=== PATIENT | male | born 1950 | race Caucasian/White ===

== ENCOUNTER → 2016-09-18 | Outpatient (CLI) | payer OTHER ==
[~2016-09-18] MED LIST: ACET-1138 PO; CYCL5TAB PO; FRRS300 PO; GABA1CAP PO; HYDR200T5 PO; HYDRCRE28 RE; HYG/25 PO; INSDGI SC; INSDGI SQ; LISI40TA PO; LVNIS30 SQ; METF-384 PO; ONDA8TAB6 PO; OXYSR10 PO; PRAM1TAB52 PO; RXC5 PO; TAMS0.4C38 PO
--- NOTE | 2016-09-18 14:55 | DIAGNOSTIC IMAGING REPORT ---
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 FINDINGS: The soft tissues, psoas shadows, renal outlines and intestinal gas pattern appear normal. There is no evidence for bowel obstruction. No abnormal abdominal calcifications are seen. IMPRESSION: Normal study. Electronically signed by: Kelvin Welch M.D. 09/18/2016 2:53 PM Dictated Date/Time: 09/18/2016 2:41 PM
== END | disposition home or self-care (01) ==
LOC: C.RAD 14:07
PROVIDERS: ATTEND Urology
DX: N20.0 Calculus of kidney (principal)

== ENCOUNTER 2017-08-02 15:49 | Emergency (ER) | payer OTHER ==
[~2017-08-02] VITALS: Ht 167.6 cm; Wt 90.3 kg
[~2017-08-02 15:49] MED LIST changes: -ACET-1138 PO; +ASPI81TA28 PO; +CHOL1000 PO; -CYCL5TAB PO; +ESCI10TA17 PO; -HYDR200T5 PO; -INSDGI SC; -INSDGI SQ; +INSDGIPEN SQ; -LVNIS30 SQ; -ONDA8TAB6 PO; -OXYSR10 PO; -RXC5 PO
[2017-08-02 16:04] VITALS: Ht 167.6 cm; Wt 90.3 kg
[2017-08-02] MEDS ORDERED: INSDGIPEN SC ×2 (16:44)
[2017-08-02] MEDS ORDERED: FINA5TAB PO (16:45)
[2017-08-02 17:15] LABS: BASO % 0.3 %; BASO ABS # 0.03 K/uL (0-0.2); EOS % 4.8 %; EOS ABS # 0.43 K/uL (0-0.5); HEMATOCRIT 38.7 % (42-52); HEMOGLOBIN 13.2 g/dL (14.0-18.0); IG# 0.06 K/uL (0.00-0.02); LYMPH % 13.9 %; LYMPH ABS # 1.23 K/uL (1.2-3.4); MEAN CELL VOLUME 88.2 fL (80-100); MEAN CORPUSCULAR HEMOGLOBIN 30.1 pg (25-34); MEAN CORPUSCULAR HGB CONC 34.1 g/dl (32-36); MEAN PLATELET VOLUME 9.8 fL (7.4-10.4); MONO % 8.2 %; MONO ABS # 0.73 K/uL (0.11-0.59); NEUT % 72.1 %; PLATELET COUNT 244 K/uL (130-400); RED CELL DISTRIBUTION WIDTH CV 13.7 % (11.5-14.5); RED CELL DISTRIBUTION WIDTH SD 43.9 fL (36.4-46.3); WHITE BLOOD COUNT 8.88 K/uL (4.8-10.8)
--- NOTE | 2017-08-02 17:18 | DIAGNOSTIC IMAGING REPORT ---
CHEST ONE VIEW PORTABLE CLINICAL HISTORY: EVALUATE ALTERED MENTAL STATUS/WEAKNESS mental status change COMPARISON STUDY: 06/12/2016 FINDINGS: Mild cardiomegaly. Lungs are clear. Diaphragms are smooth. IMPRESSION: No acute process. Mild cardiomegaly. The above report was generated using voice recognition software. It may contain grammatical, syntax or spelling errors. Electronically signed by: Kelvin Welch M.D. 08/02/2017 5:17 PM Dictated Date/Time: 08/02/2017 5:16 PM
[2017-08-02 17:28] LABS: INR 0.9 (0.9-1.1); PTT PATIENT 21.5 SECONDS (21.0-31.0)
[2017-08-02 17:38] LABS: ALBUMIN 3.4 gm/dl (3.4-5.0); ALT/SGPT 21 U/L (12-78); BLOOD UREA NITROGEN 23 mg/dl (7-18); CALCIUM 9.2 mg/dl (8.5-10.1); CARBON DIOXIDE 29 mmol/L (21-32); CREATININE 1.21 mg/dl (0.60-1.40); GLUCOSE 221 mg/dl (70-99); LIPASE 95 U/L (73-393); POTASSIUM 3.9 mmol/L (3.5-5.1); SODIUM 135 mmol/L (136-145)
[2017-08-02 17:39] LABS: INFLUENZA B ANTIGEN Neg for Influ B (NEG)
[2017-08-02 17:47] LABS: ALKALINE PHOSPHATASE 86 U/L (45-117); AST/SGOT 11 U/L (15-37); CKMB 1.2 ng/ml (0.5-3.6); TOTAL PROTEIN 7.6 gm/dl (6.4-8.2)
--- NOTE | 2017-08-02 20:27 | DIAGNOSTIC IMAGING REPORT ---
BRAIN COMBO FOR MS HISTORY: Mental status change weakness TECHNIQUE: Multiplanar multisequence MRI of the brain was performed both before and after the intravenous administration of contrast. COMPARISON STUDY: None. FINDINGS: There are no areas of restricted diffusion to suggest acute infarction. The midline structures are intact. The paranasal sinuses are clear. The mastoid air cells are clear. The ventricles and sulci are within normal limits for age. There is no mass, hematoma, midline shift. The major vascular flow-voids at the skull base are well maintained. Postcontrast sequences show no areas of abnormal enhancement. IMPRESSION: No acute intracranial abnormality. The above report was generated using voice recognition software. It may contain grammatical, syntax or spelling errors. Electronically signed by: Kelvin Welch M.D. 08/02/2017 8:26 PM Dictated Date/Time: 08/02/2017 8:23 PM
[2017-08-02] MEDS ORDERED: GADAVIST IV PRN (20:30)
[2017-08-02] MEDS ORDERED: OXYCODONE/ACETAMINOPHEN 5-325 TAB PO ONE (20:30)
--- NOTE | 2017-08-02 20:43 | EMERGENCY ROOM VISIT NOTE ---
History Report prepared by Maria Elena: Juan Contreras Under the Supervision of: Dr. Drew Nicole D.O. First contact with patient: 16:28 Chief Complaint: NEURO SYMPTOMS Stated Complaint: MS- PHYSICIAN REFERRED History of Present Illness The patient is a 66 year old male with a history of multiple sclerosis who presents to the Emergency Room with complaints of worsening weakness over the past few months. The patient states that his joint pain and soreness has been getting worse. He adds that he has had a "thumping" headache today. Per the patient's family, the patient has been declining, and can barely walk up steps or get in and out of the car. The patient has been unable to put his shoes on most of the time, and he has been noted to not be able to make his coffee because he cannot stand long enough. The patient has been having trouble moving in bed because he cannot get his "legs to work right". The patient states that Dr. Galloway of neurology recommended that the patient come here for evaluation. Per the patient's family, the patient has not been taking any medications for MS because he was told that he was in remission in the . The patient was tested for Lyme disease in March. Source of History: patient, family Onset: Over past few months Position: other (global - weakness) Symptom Intensity: can barely walk up stairs Quality: other (has MS) Timing: worsening Associated Symptoms: + headache Note: Associated symptoms: Joint aches and pains. Review of Systems See HPI for pertinent positives & negatives. A total of 10 systems reviewed and were otherwise negative. 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 (5) GERD (gastroesophageal reflux disease) (6) Hyperlipidemia (7) Hypertension (8) Infection of total right knee replacement (9) Kidney stone (10) Multiple sclerosis (11) Polyarthritis Surgical Problems: (1) H/O arthroscopic knee surgery (2) History of carpal tunnel surgery (3) History of total right knee replacement (4) S/P appendectomy (5) S/P rotator cuff repair Family History Diabetes mellitus FATHER MOTHER FH: breast cancer MOTHER Social History Smoking Status: Never Smoker Alcohol Use: none Marital Status: Housing Status: lives with family Current/Historical Medications Scheduled Aspirin (Aspirin Ec), 81 MG PO DAILY Chlorthalidone (Hygroton), 12.5 MG PO QAM Cholecalciferol (Vitamin D3), 1,000 UNITS PO DAILY Escitalopram (Lexapro), 10 MG PO DAILY Ferrous Sulfate (Ferrous Sulfate), 325 MG PO BID Finasteride (Proscar), 5 MG PO QAM Gabapentin (Neurontin), 200 MG PO HS Hydrocortisone (Rectal) (Proctozone-Hc), 1 APPLN RE PRN Insulin Glargine (Lantus Solostar), 25 UNITS SC QAM Insulin Glargine (Lantus Solostar), 30 UNITS SC QPM Lisinopril (Prinivil), 40 MG PO QAM Metformin Hcl (Glucophage), 500 MG PO BID Pramipexole Dihydrochloride (Mirapex), 2 TAB PO HS Tamsulosin Hcl (Flomax), 1 CAP PO DAILY Allergies Coded Allergies: No Known Allergies (Verified , 08/02/17) NONE Physical Exam Vital Signs Date Time Temp Pulse Resp B/P (MAP) Pulse Ox O2 Delivery O2 Flow Rate FiO2 08/02/17 20:22 83 16 177/67 95 08/02/17 19:12 77 18 173/98 94 Room Air 08/02/17 17:46 82 08/02/17 17:31 85 18 187/97 95 Room Air 08/02/17 16:04 36.8 90 18 196/102 96 Room Air Physical Exam VITAL SIGNS: were reviewed as above. GENERAL:Non-toxic in appearance. SKIN: Warm dry and pink. HEAD: Normocephalic and atraumatic. OROPHARYNX: Is clear and moist NECK: Supple without lymphadenopathy or meningismus. LUNGS: clear. HEART: Regular rate and rhythm. ABDOMEN: Soft and nontender. EXTREMITIES: Warm and well perfused. NEUROLOGICALLY: Awake alert and oriented without focal deficit. Cranial nerves 2 -12 are intact. There is no pronator drift. Cerebellar testing is within normal limits. There is no nystagmus. There is no facial droop. Speech is clear. Vision is grossly normal. MUSCULOSKELETAL: Good muscle tone. No evidence of trauma. Medical Decision & Procedures ER Provider Diagnostic Interpretation: Radiology results as stated below per my review and radiologist interpretation: CHEST ONE VIEW PORTABLE CLINICAL HISTORY: EVALUATE ALTERED MENTAL STATUS/WEAKNESS mental status change COMPARISON STUDY: 06/12/2016 FINDINGS: Mild cardiomegaly. Lungs are clear. Diaphragms are smooth. IMPRESSION: No acute process. Mild cardiomegaly. The above report was generated using voice recognition software. It may contain grammatical, syntax or spelling errors. Electronically signed by: Kelvin Welch M.D. 08/02/2017 5:17 PM Dictated Date/Time: 08/02/2017 5:16 PM BRAIN COMBO FOR MS HISTORY: Mental status change weakness TECHNIQUE: Multiplanar multisequence MRI of the brain was performed both before and after the intravenous administration of contrast. COMPARISON STUDY: None. FINDINGS: There are no areas of restricted diffusion to suggest acute infarction. The midline structures are intact. The paranasal sinuses are clear. The mastoid air cells are clear. The ventricles and sulci are within normal limits for age. There is no mass, hematoma, midline shift. The major vascular flow-voids at the skull base are well maintained. Postcontrast sequences show no areas of abnormal enhancement. IMPRESSION: No acute intracranial abnormality. The above report was generated using voice recognition software. It may contain grammatical, syntax or spelling errors. Electronically signed by: Kelvin Welch M.D. 08/02/2017 8:26 PM Dictated Date/Time: 08/02/2017 8:23 PM Laboratory Results 08/02/17 16:57 Red Blood Count 4.39, Mean Corpuscular Volume 88.2, Mean Corpuscular Hemoglobin 30.1, Mean Corpuscular Hemoglobin Concent 34.1, Mean Platelet Volume 9.8, Neutrophils (%) (Auto) 72.1, Lymphocytes (%) (Auto) 13.9, Monocytes (%) (Auto) 8.2, Eosinophils (%) (Auto) 4.8, Basophils (%) (Auto) 0.3, Neutrophils # (Auto) 6.40, Lymphocytes # (Auto) 1.23, Monocytes # (Auto) 0.73, Eosinophils # (Auto) 0.43, Basophils # (Auto) 0.03 08/02/17 16:57 Test 08/02/17 16:28 08/02/17 16:53 08/02/17 16:57 Influenza Type A Antigen Neg for Influ A (NEG) Influenza Type B Antigen Neg for Influ B (NEG) Urine Color YELLOW Urine Appearance CLEAR (CLEAR) Urine pH 7.0 (4.5-7.5) Urine Specific [place] 1.020 (1.000-1.030) Urine Protein 3+ (NEG) Urine Glucose (UA) 2+ (NEG) Urine Ketones NEG (NEG) Urine Occult Blood TRACE (NEG) Urine Nitrite NEG (NEG) Urine Bilirubin NEG (NEG) Urine Urobilinogen NEG (NEG) Urine Leukocyte Esterase NEG (NEG) Urine WBC (Auto) 1-5 /hpf (0-5) Urine RBC (Auto) 0-4 /hpf (0-4) Urine Hyaline Casts (Auto) 0 /lpf (0-5) Urine Epithelial Cells (Auto) 5-10 /lpf (0-5) Urine Bacteria (Auto) NEG (NEG) White Blood Count 8.88 K/uL (4.8-10.8) Red Blood Count 4.39 M/uL (4.7-6.1) Hemoglobin 13.2 g/dL (14.0-18.0) Hematocrit 38.7 % (42-52) Mean Corpuscular Volume 88.2 fL (80-100) Mean Corpuscular Hemoglobin 30.1 pg (25-34) Mean Corpuscular Hemoglobin Concent 34.1 g/dl (32-36) Platelet Count 244 K/uL (130-400) Mean Platelet Volume 9.8 fL (7.4-10.4) Neutrophils (%) (Auto) 72.1 % Lymphocytes (%) (Auto) 13.9 % Monocytes (%) (Auto) 8.2 % Eosinophils (%) (Auto) 4.8 % Basophils (%) (Auto) 0.3 % Neutrophils # (Auto) 6.40 K/uL (1.4-6.5) Lymphocytes # (Auto) 1.23 K/uL (1.2-3.4) Monocytes # (Auto) 0.73 K/uL (0.11-0.59) Eosinophils # (Auto) 0.43 K/uL (0-0.5) Basophils # (Auto) 0.03 K/uL (0-0.2) RDW Standard Deviation 43.9 fL (36.4-46.3) RDW Coefficient of Variation 13.7 % (11.5-14.5) Immature Granulocyte % (Auto) 0.7 % Immature Granulocyte # (Auto) 0.06 K/uL (0.00-0.02) Prothrombin Time 9.5 SECONDS (9.0-12.0) Prothromb Time International Ratio 0.9 (0.9-1.1) Activated Partial Thromboplast Time 21.5 SECONDS (21.0-31.0) Partial Thromboplastin Ratio 0.8 Anion Gap 8.0 mmol/L (3-11) Est Creatinine Clear Calc Drug Dose 62.3 ml/min Estimated GFR () 71.4 Estimated GFR (Non- 61.6 BUN/Creatinine Ratio 18.6 (10-20) Calcium Level 9.2 mg/dl (8.5-10.1) Magnesium Level 1.6 mg/dl (1.8-2.4) Total Bilirubin 0.3 mg/dl (0.2-1) Direct Bilirubin < 0.1 mg/dl (0-0.2) Aspartate Amino Transf (AST/SGOT) 11 U/L (15-37) Alanine Aminotransferase (ALT/SGPT) 21 U/L (12-78) Alkaline Phosphatase 86 U/L (45-117) Total Creatine Kinase 55 U/L (39-308) Creatine Kinase MB 1.2 ng/ml (0.5-3.6) Creatine Kinase MB Ratio 2.2 (0-3.0) Troponin I < 0.015 ng/ml (0-0.045) Total Protein 7.6 gm/dl (6.4-8.2) Albumin 3.4 gm/dl (3.4-5.0) Lipase 95 U/L (73-393) Thyroid Stimulating Hormone (TSH) 0.307 uIu/ml (0.300-4.500) Lyme Disease IgG Antibody NEG (NEG) Lyme Disease IgM Antibody NEG (NEG) Laboratory results as stated above per my review. Medications Administered Medications (Trade) Dose Ordered Sig/Juliet Route Start Time Stop Time Status Last Admin Dose Admin Oxycodone/ Acetaminophen (Percocet 5-325mg Tab) 1 tab NOW ONCE PO 08/02/17 20:30 08/02/17 20:31 DC 08/02/17 20:32 1 TAB ECG Indication: weakness Rate (beats per minute): 86 Rhythm: normal sinus Findings: no ectopy, other (no acute injury) ED Course 162: Previous medical records were reviewed. The patient was evaluated in room B6. A complete history and physical examination was performed. 2029: Ordered Percocet 5-325mg Tab 1 tab PO. 2031: On reevaluation, the patient is resting. I discussed the results and findings with the patient and his family. They verbalized agreement of the treatment plan. The patient was discharged home. Medical Decision Differential includes acute coronary syndrome, myocardial infarction, CVA, TIA, anemia, infection, pneumonia, UTI, pyelonephritis, poor nutrition, dehydration, electrolyte disturbance,hypoglycemia. This is a 66-year-old male who presents to the ED with a chief complaint of some joint aches as well as weakness. The patient has been having some difficulty with moving and standing and putting on his shoes. The patient was sent here by the neurologist for an MRI of the brain to rule out MS. The patient reports a history of MS in the past. His vital signs revealed a hypertension. He was referred to have this rechecked by his PCP. The patient' s exam did not reveal any focal deficits. He has some mild generalized weakness. An EKG shows a normal sinus rhythm. Chest x-ray did not show acute disease. Complete metabolic panel was unremarkable. Glucose was 221. Troponin was negative, TSH was normal. Lyme test was negative, flu swab was negative and a urinalysis did not show acute infection. MRI of the brain did not show any abnormalities. The patient was given a Percocet for a headache. I spoke with the family and the patient about the results. He feels comfortable going home. He was felt to be stable for discharge. I told him to speak with his PCP about physical therapy. Medication Reconcilliation Current Medication List: was personally reviewed by me Blood Pressure Screening Patient's blood pressure: Elevated blood pressure Blood pressure disposition: Elevated BP felt to be situational Impression Primary Impression: Weakness Scribe Attestation The scribe's documentation has been prepared under my direction and personally reviewed by me in its entirety. I confirm that the note above accurately reflects all work, treatment, procedures, and medical decision making performed by me. Departure Information Dispostion Home / Self-Care Referrals Destini Rendon D.O. (PCP) Patient Instructions My [facility] Additional Instructions Talk to your doctor about physical therapy. Follow-up with your doctor for recheck next week. Return for any worsening or new concerns.
[2017-08-02 20:55] VITALS: BP 177/67; PULSE 83; TEMP 36.8; O2SAT 95
== END 2017-08-02 20:56 | disposition home or self-care (01) ==
LOC: C.EDB 15:50
DX: R53.1 Weakness (principal); G35 Multiple sclerosis; J45.909 Unspecified asthma, uncomplicated; N18.3 Chronic kidney disease, stage 3 (moderate); I12.9 Hypertensive chronic kidney disease with stage 1 through stage 4 chronic kidney disease, or unspecified chronic kidney disease; E11.22 Type 2 diabetes mellitus with diabetic chronic kidney disease; K21.9 Gastro-esophageal reflux disease without esophagitis; E78.5 Hyperlipidemia, unspecified; Z87.442 Personal history of urinary calculi; M13.0 Polyarthritis, unspecified; Z96.651 Presence of right artificial knee joint; Z83.3 Family history of diabetes mellitus; Z80.3 Family history of malignant neoplasm of breast; Z79.82 Long term (current) use of aspirin; Z79.4 Long term (current) use of insulin; Z79.84 Long term (current) use of oral hypoglycemic drugs; Z79.899 Other long term (current) drug therapy

== ENCOUNTER 2018-12-02 14:05 | Inpatient (IN) ==
[2018-12-02 14:44] LABS: Basophils # (auto) 0.03 K/uL (0-0.2); Basophils % (auto) 0.3 %; Eosinophils # (auto) 0.56 K/uL (0-0.5); Eosinophils % (auto) 6.2 %; Hematocrit (blood only) 37.9 % (42-52); Hemoglobin 13.4 g/dL (14.0-18.0); Immature Granulocytes # (auto) 0.04 K/uL (0.00-0.02); Immature Granulocytes % (auto) 0.4 %; Lymphocytes # (auto) 1.84 K/uL (1.2-3.4); Lymphocytes % (auto) 20.4 %; Mean Corpuscular Hgb Conc 35.4 g/dL (32-36); Mean Corpuscular Volume 88.1 fL (80-100); Mean Platelet Volume 9.7 fL (7.4-10.4); Monocytes # (auto) 0.62 K/uL (0.11-0.59); Monocytes % (auto) 6.9 %; Neutrophils # (auto) 5.91 K/uL (1.4-6.5); Neutrophils % (auto) 65.8 %; Platelet Count 226 K/uL (130-400); RDW Standard Deviation 44.6 fL (36.4-46.3)
[2018-12-02 15:04] LABS: Prothrombin Time 63.3 Seconds (9.0-12.0)
[2018-12-02 15:07] LABS: Albumin Level 3.6 gm/dl (3.4-5.0); BUN Creatinine Ratio 13.7 (10-20); Creatinine Clr Calc Pharmacy 45.3 ml/min; Est GFR (African American) 52.2; Potassium 4.4 mmol/L (3.5-5.1)
[2018-12-02 15:09] LABS: Albumin Globulin Ratio 0.9 (0.9-2); Bilirubin,Total 0.3 mg/dl (0.2-1); Globulin 3.9 gm/dl (2.5-4.0); Total Protein 7.5 gm/dl (6.4-8.2)
[2018-12-02 15:20] LABS: INR 7.1 (0.9-1.1)
[2018-12-02 15:20] LABS: Appearance Urine Turbid (Clear); Color Urine Red
[2018-12-02 15:21] LABS: Ictotest Urine Negative (Negative); Specific Gravity Urine 1.015 (1.000-1.030)
[2018-12-02 15:22] LABS: Epithelial Cell Urine 0-5 /lpf (0-5); RBC Urine >30 /hpf (0-4)
[2018-12-02 15:23] LABS: Bacteria Urine Negative (Negative); Hyaline Casts Urine 0-5 /lpf (0-5); WBC Urine 0-5 /hpf (0-5)
--- NOTE | 2018-12-02 16:11 | CT Scan Report ---
CT SCAN OF THE ABDOMEN AND PELVIS WITHOUT CONTRAST CLINICAL HISTORY: hematuria, pelvic pain, urinary retention, coulter COMPARISON STUDY: 10/28/2009 TECHNIQUE: CT scan of the abdomen and pelvis was performed from the lung bases to the proximal femurs . Images are reviewed in the axial, sagittal, and coronal planes. IV contrast was not administered fo r this examination. A dose lowering technique was utilized adhering to the principles of ALARA. CT DOSE: 490.62 mGy.cm FINDINGS: Lower chest: The heart is normal in size and configuration, without pericardial effusion. The lung ba ses and pleural spaces are clear. Liver: The unenhanced liver is normal in size, contour, and attenuation. There is no intrahepatic cristy iary ductal dilatation. Gallbladder: Unremarkable. Spleen: Normal in size and attenuation. Pancreas: Unremarkable. Adrenal glands: Unremarkable. Kidneys: No renal, ureteral, or bladder calculi are visualized. Bowel: There are no transition zones indicate bowel obstruction. There is no acute diverticulitis. Th e appendix is not visualized with certainty. There are no findings to indicate acute appendicitis. Peritoneum: There is no intraperitoneal free air or abdominal ascites. Vasculature: The abdominal aorta is normal in course and caliber. Adenopathy: None. Pelvic viscera: A Coulter catheter is visualized within the bladder. Bladder contents are hyperdense. T here is a 15 mm filling defect within the bladder lateral to the Coulter catheter to the right of midli ne. Skeletal structures: No destructive osseous lesions are seen. IMPRESSION: 1. No renal, ureteral, or bladder calculi identified 2. No evidence of bowel obstruction. No evidence of free air 3. Coulter catheter within the bladder 4. Increased density of the urine within the bladder. This could be indicate either contrast or hemor rhage 5. 15 mm filling defect within the bladder lateral to the Coulter catheter to the right of midline. Electronically signed by: Hosea Mims M.D. 12/02/2018 4:10 PM
[2018-12-02] MEDS ORDERED: PHYTONADIONE 5 MG TAB PO STA (16:53)
[2018-12-02] MEDS ORDERED: NITROGLYCERIN SL 0.4 MG/TAB TAB SL PRN (19:03)
[2018-12-02] MEDS ORDERED: ONDANSETRON INJ 2 MG/ML 2 ML VIAL IV PRN (19:03)
[2018-12-02] MEDS ORDERED: ACETAMINOPHEN 325 MG TAB PO PRN (19:03)
[2018-12-02] MEDS ORDERED: GLUCAGON FOR INJ 1 MG VIAL IM PRN (19:15)
[2018-12-02] MEDS ORDERED: CARBOHYDRATES FOR HYPOGLYCEMIA PO PRN (19:15)
[2018-12-02] MEDS ORDERED: GLUCOSE 40% GEL 15 GM TUBE PO PRN (19:15)
[2018-12-02] MEDS ORDERED: DEXTROSE 50% 50 ML SYRINGE IV PRN (19:15)
[2018-12-02] MEDS ORDERED: GLUCOSE 10 TABS/TUBE PO PRN (19:15)
[2018-12-02 19:30] LABS: Hematocrit (blood only) 35.9 % (42-52); Hemoglobin 12.8 g/dL (14.0-18.0)
[2018-12-02] MEDS ORDERED: PHYTONADIONE 2.5 MG in SODIUM CHLORIDE 0.9% 50 ML IV ONE (19:30)
[2018-12-02] MEDS: SODIUM CHLORIDE 0.9% 1000ML 1,000 ML IV SCH (19:40)
[2018-12-02] MEDS: FERROUS SULFATE 325 MG TAB PO SCH (20:15)
[2018-12-02] MEDS: GABAPENTIN 100 MG CAP PO SCH (20:15)
[2018-12-02] MEDS: PRAMIPEXOLE DIHYDROCHLO 0.25 MG TAB PO SCH (20:15)
[2018-12-02] MEDS: LISINOPRIL 40 MG TAB PO SCH (20:16)
[2018-12-02] MEDS: AMLODIPINE BESYLATE 5 MG TAB PO SCH (20:16)
--- NOTE | 2018-12-02 20:40 | Emergency Department Note ---
Entered by Juan Ortega acting as a scribe for Nacho Allen MD ED Provider Note CHIEF COMPLAINT: urinary retention HISTORY OF PRESENT ILLNESS: The patient is a 68 year old male who presents to the Emergency Room with compla ints of inability to void urine. The patient reports that he had prostate surgery four weeks ago, and in the past few days he developed hematuria with occasional passing of large clots. He reports persistent abdominal bloating and discomfort over the past few days, as well as pelvic discomfort and pain for the past few weeks. He states that he is now unable to urinate. He reports that he is on Coumadin, and his INR last week was therapeutic. He denies other symptoms. He took no medication for his symptoms. Pt denies LOC, headache, fevers, chills, diaphoresis, visual changes, neck pain, chest pain, breathing difficulties, nausea, vomiting, melena, hematochezia, numbness, weakness, lymphadenopathy, rash, or other complaints. REVIEW OF SYSTEMS: See HPI for pertinent positives and negatives. A total of six systems were reviewed and were otherwise negative. PMHx/PSHx: diabetes CKD GERD hypertension hyperlipidemia DVT SOCIAL HISTORY: Patient lives at home. PHYSICAL EXAM: GENERAL: Awake, alert, uncomfortable-appearing, in no distress HENT: Normocephalic, atraumatic. Oropharynx unremarkable. EYES: PERRL. Normal conjunctiva. Sclera non-icteric. NECK: Inspection normal. Non-tender. Supple. No nuchal rigidity. FROM. No masses. RESPIRATORY: Clear to auscultation. No wheezes. No rales. Normal respiratory effort. CARDIAC: Normal rate. Normal rhythm. No murmurs. No rubs. Extremities warm and well perfused. Pulses equal. No JVD. GI: Soft, non-distended. Suprapubic tenderness to palpation. No rebound or guarding. No masses. : Scant blood at the meatus. RECTAL: Deferred. MUSCULOSKELETAL: Atraumatic. Chest examination reveals no tenderness. The back is symmetrical on inspection without obvious abnormality. There is no CVA tenderness to palpation. No joint edema. LOWER EXTREMITIES: Calves are equal size bilaterally and non-tender. No edema. No discoloration. NEURO: Normal sensorium. No sensory or motor deficits noted. SKIN: No rash or jaundice noted. EMERGENCY DEPARTMENT COURSE: 1428: Past medical records reviewed. The patient was evaluated in room C9, and a complete history and physical examination were performed. 1512: Bladder scan showed 885 cc of urine. 1514: The patient voided 1100 cc of bloody urine. 1631: The patient is feeling improved, but there was difficulty flushing the catheter after initial drainage, and there is a significant clot in the bladder. 1647: I consulted Dr. Tamez [facility]. 1653: I updated the patient on current results. 1655: [facility]. The patient will be reevaluated for hospitalization. MEDICAL DECISION MAKING: Triage Nursing notes reviewed. The patient's presentation and history were concerning for urinary retention. Etiologies such as obstruction, dehydration, infection, urinary retention, ARF, coagulopathy, as well as others were entertained. The patient was evaluated. Bladder scan revealed significant urinary retention. A catheter was placed. He had significant relief of his symptoms but had significant amount of urine obtained. The patient had irrigation performed. The catheter then became clogged. CT imaging revealed a significant clot within the bladder. The patient had an INR that was supratherapeutic. He was given oral vitamin K. I did consult with urology. It was felt that the patient should be observed in the hospital due to his high likelihood of clotting the catheter and obstructing with his coagulopathy. Consultation was made with the [facility] service. The patient was in agreement. The patient was evaluated in the ER for further management. IMPRESSION: acute urinary retention hematuria supratherapeutic INR PLAN: evaluation by hospitalist The scribe's documentation has been prepared under my direction and personally reviewed by me in its entirety. I confirm that the note above accurately reflects all work, treatment, procedures, and medical decision making performed by me. 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 Cataract Chronic kidney disease Stage III. follows w/ dr. 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 Galloway, has not had symptoms beyond muscle twitches since the early Osteoarthritis Thyroid nodule Surgical History S/P appendectomy (Chronic) History of carpal tunnel surgery (Chronic) S/P rotator cuff repair (Chronic) H/O arthroscopic knee surgery (Chronic) History of total right knee replacement (Chronic) History of appendectomy History of arthroscopy of left knee History of cardiac cath 15 years ago - CP led to cath - Tj - no stents/angioplasty, ruled indigestion - does not follow w/ cardio History of carpal tunnel release BL History of cystoscopy History of knee joint replacement x 2 rt knee History of repair of rotator cuff BL History of surgery LLE - hardware present History of tooth extraction Status post biopsy of thyroid gland benign Family History Daughter History of anesthesia reaction PONV Grandfather (Paternal) Family history of diabetes mellitus Mother Family history of diabetes mellitus Father Family history of diabetes mellitus Social History Preferred Language: Gambian Communication Ability: Effective Community Outreach Advocate Required: No Beliefs That Will Affect Care: None marital status: Current Living Situation: Spouse current occupational status: retired Other Information That Helps Us Care for You: No Feels Safe at Home: Yes Safety Concerns: Feels Safe At This Time Smoking Status: Never smoker Tobacco Type: smokeless tobacco Do You Dip or Chew Tobacco: Yes Second Hand Exposure: Yes ( SMOKES) Tobacco Cessation Education Requested by Patient: No Hx Alcohol Use: Yes Alcohol type: beer and wine Hx Substance Use: No Results & Data Vital Signs Vital Signs - 24 hr 12/02/18 14:19 12/02/18 15:14 12/02/18 16:48 Temperature 36.9 C Temperature Source Oral Sepsis Recent Fever Within 48 Hours No Sepsis New/Unexplained Change in Mental Status No Sepsis Action Taken by Nursing No Action Required Pulse Rate 81 Pulse Rate [Apical] 75 75 Pulse Rhythm [Apical] Pulse Strength [Apical] Respiratory Rate 18 18 18 Respiratory Effort / Characteristics Non-Labored Respiratory Depth Normal Respiratory Pattern Blood Pressure 141/83 H Blood Pressure [Left Arm] 153/80 H 147/91 H Blood Pressure Mean 102 Blood Pressure Mean [Left Arm] 104 109 Blood Pressure Position Sitting Blood Pressure Position [Left Arm] Pulse Oximetry 98 98 95 Oxygen Delivery Method Room Air Room Air Room Air 12/02/18 18:18 12/02/18 19:04 Temperature 36.7 C Temperature Source Oral Sepsis Recent Fever Within 48 Hours Sepsis New/Unexplained Change in Mental Status Sepsis Action Taken by Nursing Pulse Rate Pulse Rate [Apical] 75 70 Pulse Rhythm [Apical] Regular Pulse Strength [Apical] Normal Respiratory Rate 18 16 Respiratory Effort / Characteristics Non-Labored Spontaneous Respiratory Depth Normal Respiratory Pattern Regular Blood Pressure Blood Pressure [Left Arm] 129/78 156/87 H Blood Pressure Mean Blood Pressure Mean [Left Arm] 95 110 Blood Pressure Position Blood Pressure Position [Left Arm] Lying Pulse Oximetry 97 97 Oxygen Delivery Method Room Air Room Air Home Medications Current Medication List: was personally reviewed by me Laboratory Data Attestation: I reviewed the patient's lab results. Result diagrams: 12/02/18 19:24 12/02/18 14:37 Lab Results 12/02/18 12/02/18 12/02/18 Range/Units 14:37 14:37 14:37 WBC 9.00 (4.8-10.8) K/uL RBC 4.30 L (4.7-6.1) M/uL Hgb 13.4 L (14.0-18.0) g/dL Hct 37.9 L (42-52) % MCV 88.1 (80-100) fL MCH 31.2 (25-34) pg MCHC 35.4 (32-36) g/dL RDW Std Deviation 44.6 (36.4-46.3) fL RDW Coeff of Leo 14.0 (11.5-14.5) % Plt Count 226 (130-400) K/uL MPV 9.7 (7.4-10.4) fL Immature Gran % (Auto) 0.4 % Neut % (Auto) 65.8 % Lymph % (Auto) 20.4 % [place] % (Auto) 6.9 % Eos % (Auto) 6.2 % Baso % (Auto) 0.3 % Immature Gran # (Auto) 0.04 H (0.00-0.02) K/uL Neut # (Auto) 5.91 (1.4-6.5) K/uL Lymph # (Auto) 1.84 (1.2-3.4) K/uL [place] # (Auto) 0.62 H (0.11-0.59) K/uL Eos # (Auto) 0.56 H (0-0.5) K/uL Baso # (Auto) 0.03 (0-0.2) K/uL PT 63.3 H (9.0-12.0) Seconds INR 7.1 H* (0.9-1.1) Sodium 140 (136-145) mmol/L Potassium 4.4 (3.5-5.1) mmol/L Chloride 107 (98-107) mmol/L Carbon Dioxide 24 (21-32) mmol/L Anion Gap 9.0 (3-11) BUN 21 H (7-18) mg/dl Creatinine 1.55 H (0.6-1.4) mg/dl Est Cr Clr Drug Dosing 45.3 ml/min Est GFR ( Amer) 52.2 Est GFR (Non-Af Amer) 45.0 BUN/Creatinine Ratio 13.7 (10-20) Glucose 223 H (70-99) mg/dl POC Glucose (70-99) Calcium 9.0 (8.5-10.1) mg/dl Total Bilirubin 0.3 (0.2-1) mg/dl AST 15 (15-37) U/L ALT 29 (12-78) U/L Alkaline Phosphatase 54 (45-117) U/L Total Protein 7.5 (6.4-8.2) gm/dl Albumin 3.6 (3.4-5.0) gm/dl Globulin 3.9 (2.5-4.0) gm/dl Albumin/Globulin Ratio 0.9 (0.9-2) Urine Color Urine Appearance (Clear) Urine pH (4.5-7.5) Ur Specific [place] (1.000-1.030) Urine Protein (Negative) Urine Glucose (UA) (Negative) Urine Ketones (Negative) Urine Blood (Negative) Urine Nitrite (Negative) Urine Bilirubin (Negative) Urine Urobilinogen (Negative) Ur Leukocyte Esterase (Negative) Urine RBC (0-4) /hpf Urine WBC (0-5) /hpf Ur Epithelial Cells (0-5) /lpf Urine Bacteria (Negative) Hyaline Casts (0-5) /lpf 12/02/18 12/02/18 12/02/18 Range/Units 14:48 19:24 20:18 WBC (4.8-10.8) K/uL RBC (4.7-6.1) M/uL Hgb 12.8 L (14.0-18.0) g/dL Hct 35.9 L (42-52) % MCV (80-100) fL MCH (25-34) pg MCHC (32-36) g/dL RDW Std Deviation (36.4-46.3) fL RDW Coeff of Leo (11.5-14.5) % Plt Count (130-400) K/uL MPV (7.4-10.4) fL Immature Gran % (Auto) % Neut % (Auto) % Lymph % (Auto) % [place] % (Auto) % Eos % (Auto) % Baso % (Auto) % Immature Gran # (Auto) (0.00-0.02) K/uL Neut # (Auto) (1.4-6.5) K/uL Lymph # (Auto) (1.2-3.4) K/uL [place] # (Auto) (0.11-0.59) K/uL Eos # (Auto) (0-0.5) K/uL Baso # (Auto) (0-0.2) K/uL PT (9.0-12.0) Seconds INR (0.9-1.1) Sodium (136-145) mmol/L Potassium (3.5-5.1) mmol/L Chloride (98-107) mmol/L Carbon Dioxide (21-32) mmol/L Anion Gap (3-11) BUN (7-18) mg/dl Creatinine (0.6-1.4) mg/dl Est Cr Clr Drug Dosing ml/min Est GFR ( Amer) Est GFR (Non-Af Amer) BUN/Creatinine Ratio (10-20) Glucose (70-99) mg/dl POC Glucose 97 (70-99) Calcium (8.5-10.1) mg/dl Total Bilirubin (0.2-1) mg/dl AST (15-37) U/L ALT (12-78) U/L Alkaline Phosphatase (45-117) U/L Total Protein (6.4-8.2) gm/dl Albumin (3.4-5.0) gm/dl Globulin (2.5-4.0) gm/dl Albumin/Globulin Ratio (0.9-2) Urine Color Red Urine Appearance Turbid A (Clear) Urine pH (4.5-7.5) Ur Specific [place] 1.015 (1.000-1.030) Urine Protein (Negative) Urine Glucose (UA) (Negative) Urine Ketones (Negative) Urine Blood (Negative) Urine Nitrite (Negative) Urine Bilirubin (Negative) Urine Urobilinogen (Negative) Ur Leukocyte Esterase (Negative) Urine RBC >30 H (0-4) /hpf Urine WBC 0-5 (0-5) /hpf Ur Epithelial Cells 0-5 (0-5) /lpf Urine Bacteria Negative (Negative) Hyaline Casts 0-5 (0-5) /lpf Administered Medications Amlodipine Besylate (Norvasc) 5 mg PO QPM [facility] Stop: 01/01/19 20:59 Last Admin: 12/02/18 20:16 Dose: 5 mg Documented by: [id number] Ferrous Sulfate (Feosol) 325 mg PO BID [facility] Stop: 01/01/19 20:59 Last Admin: 12/02/18 20:15 Dose: 325 mg Documented by: [id number] Gabapentin (Neurontin) 200 mg PO QPM [facility] Stop: 01/01/19 20:59 Last Admin: 12/02/18 20:15 Dose: 200 mg Documented by: [id number] Sodium Chloride (Nss 1000ml) 1,000 mls @ 80 mls/hr IV .[id number] [facility] Stop: 01/01/19 19:02 Last Admin: 12/02/18 19:40 Dose: 80 mls/hr Documented by: [id number] Lisinopril (Zestril) 40 mg PO BID [facility] Stop: 01/01/19 20:59 Last Admin: 12/02/18 20:16 Dose: 40 mg Documented by: [id number] Pramipexole Dihydrochloride (Mirapex) 0.75 mg PO QPM [facility] Stop: 01/01/19 20:59 Last Admin: 12/02/18 20:15 Dose: 0.75 mg Documented by: [id number] Discontinued Medications Phytonadione 2.5 mg/ Sodium (Chloride) 50.25 mls @ 100.5 mls/hr IV NOW ONE Stop: 12/02/18 19:59 Last Admin: 12/02/18 19:56 Dose: 100.5 mls/hr Documented by: [id number] Phytonadione (Mephyton) 2.5 mg PO NOW STA Stop: 12/02/18 16:54 Last Admin: 12/02/18 17:41 Dose: 2.5 mg Documented by: [id number] Imaging Data Radiologist's Impression: Radiology results as stated below per my review and the radiologist's interpretation: CT SCAN OF THE ABDOMEN AND PELVIS WITHOUT CONTRAST CLINICAL HISTORY: hematuria, pelvic pain, urinary retention, coulter COMPARISON STUDY: 10/28/2009 TECHNIQUE: CT scan of the abdomen and pelvis was performed from the lung bases to the proximal femurs. Images are reviewed in the axial, sagittal, and coronal planes. IV contrast was not administered for this examination. A dose lowering technique was utilized adhering to the principles of ALARA. CT DOSE: 490.62 mGy.cm FINDINGS: Lower chest: The heart is normal in size and configuration, without pericardial effusion. The lung bases and pleural spaces are clear. Liver: The unenhanced liver is normal in size, contour, and attenuation. There is no intrahepatic biliary ductal dilatation. Gallbladder: Unremarkable. Spleen: Normal in size and attenuation. Pancreas: Unremarkable. Adrenal glands: Unremarkable. Kidneys: No renal, ureteral, or bladder calculi are visualized. Bowel: There are no transition zones indicate bowel obstruction. There is no acute diverticulitis. The appendix is not visualized with certainty. There are no findings to indicate acute appendicitis. Peritoneum: There is no intraperitoneal free air or abdominal ascites. Vasculature: The abdominal aorta is normal in course and caliber. Adenopathy: None. Pelvic viscera: A Coulter catheter is visualized within the bladder. Bladder co ntents are hyperdense. There is a 15 mm filling defect within the bladder lateral to the Coulter catheter to the right of midline. Skeletal structures: No destructive osseous lesions are seen. IMPRESSION: 1. No renal, ureteral, or bladder calculi identified 2. No evidence of bowel obstruction. No evidence of free air 3. Coulter catheter within the bladder 4. Increased density of the urine within the bladder. This could be indicate either contrast or hemorrhage 5. 15 mm filling defect within the bladder lateral to the Coulter catheter to the right of midline. Electronically signed by: Hosea Mims M.D. 12/02/2018 4:10 PM Blood Pressure Blood Pressure Findings: Elevated blood pressure Blood Pressure Disposition: further management by hospitalist Discharge Plan Visit Data *Final* Discharge Date/Time: 12/02/18 18:29 Chief Complaint: Bleeding Stated Complaint: BLEEDING,CANT PEE, PROSTATE SURG 3/4 WEEKS AGO ED Provider: Nacho Allen Discharge Problem: Acute urinary retention, Hematuria, Supratherapeutic INR Patient Disposition: Admitted As Inpatient Discharge Instructions Interventions: ED Discharge Assessment Last Done: 12/02/18 18:29 Discharge Problem: Hematuria Qualifiers: Hematuria type: unspecified type Qualified Code(s): R31.9 - Hematuria, unspecified The scribe's documentation has been prepared under my direction and personally reviewed by me in its entirety. I confirm that the note above accurately reflects all work, treatment, procedures, and medical decision making performed by me.
[2018-12-02] MEDS: INSULIN ASPART 100 UNITS/ML 3 ML PEN SC SCH (20:51)
[2018-12-02] MEDS: INSULIN GLARGINE SOLOSTAR 100 UNITS/ML 3 ML PEN SC SCH (20:52)
--- NOTE | 2018-12-02 21:14 | History and Physical Report ---
DATE OF ADMISSION: 12/02/2018 CHIEF COMPLAINT: Hematuria. HISTORY OF PRESENT ILLNESS: This is a 68-year-old male with past medical history significant for diabetic polyneuropathy, hyperlipidemia, type 2 diabetes, goiter, asthma, hypertension, GERD, polymyalgia rheumatica, multiple sclerosis, history of DVT; first DVT was in the right lower extremity about couple of years ago, second DVT was in the left lower extremity in 03/2008 on Coumadin, had a laser procedure done to his prostrate on 10/31/2018, postprocedure was on Lovenox bridge and Coumadin, currently he is on Coumadin and he was doing okay, but last Sunday he noticed some blood tinged urine and and got worse on sunday with some clots and today morning he could not pee, he got worried and had some abdominal pain, so he came to the ER. The CT scan was done in the ER showing 15 mm filling defect of the bladder lateral to the Cantor catheter to the right of midline.Cantor catheter was placed in ER and the catheter was flushed and is draining some hematuria. The patient's INR is also elevated at 7.1.Currently resting comfortably and hemodynamically stable. He has some mild soreness in the lower abdomen. Denies any headache, no dizziness, no blurred vision. No earache, no runny nose, no sore throat, no difficulty swallowing. Appetite is good. Does not sleep well, but sleeps on and off in the morning, snores in the night. Appetite is good. No chest pain, no shortness of breath, no cough, no fever, feeling somewhat cold. No nausea, no vomiting. Has some diarrhea, he attributes it to metformin. Does not ambulate well because of his knee surgeries. He has pain in the right knee, but does not use any walker or cane. No swelling in the legs. ALLERGIES: No known drug allergies. PAST MEDICAL HISTORY: As mentioned above. PAST SURGICAL HISTORY: Bilateral knee arthroplasty, colonoscopy, left heart catheterization, knee arthroscopy, appendectomy, bilateral rupture of rotator cuff repair. MEDICATIONS: The patient is on lovastatin 10 mg p.o. daily, amlodipine 5 mg p.o. daily, Lantus 30 units b.i.d., lisinopril 40 mg p.o. b.i.d., metformin 1000 mg p.o. b.i.d., gabapentin 200 mg p.o. at bedtime, Coumadin 10 mg p.o. daily, Mirapex 0.75 mg at bedtime, chlorthalidone 25 mg p.o. daily, vitamin D 1000 units p.o. daily, Proscar 5 mg p.o. daily, ferrous sulfate 325 mg p.o. b.i.d. FAMILY HISTORY: Significant for mother has rheumatoid arthritis, breast cancer, diabetes, end-stage renal disease, CABG. Father had ulcers, diabetes, dementia, CKD. SOCIAL HISTORY: , smokes tobacco. No alcohol use, no drug use. REVIEW OF SYMPTOMS: As per HPI. Rest of review of system is negative. PHYSICAL EXAMINATION: GENERAL: The patient is of moderate build, not in acute distress. VITAL SIGNS: Temperature 36.9, pulse 74, respiratory rate 18, blood pressure 147/91, oxygen 95% on room air. HEENT: No pallor, no icterus. Pupils equal, round, and reactive to light. NECK: No JVD, no neck masses, no carotid bruits. CARDIOVASCULAR: S1, S2 heard, regular rate and rhythm, no murmur, no gallop. RESPIRATORY SYSTEM: Normal AP diameter. No accessory muscle use. No wheezing, no crackles. ABDOMEN: Soft, bowel sounds present. Nontender. No distention. CENTRAL NERVOUS SYSTEM: Cranial nerves II-XII grossly nonfocal. EXTREMITIES: No edema, no erythema. LABS: WBC 9, hemoglobin 13.4, hematocrit 37.9, platelets 226. PT 63.3, INR is 1.1. Sodium 140, potassium 4.4, chloride 107, bicarbonate 24, BUN 24, creatinine 1.5, serum glucose 200, CO2 23, calcium 9, total bilirubin 0.3, AST 15, ALT 29, alkaline phosphatase is 54. Urinalysis: RBC present. CT of abdomen and pelvis, no renal, ureteral or bladder calculi identified. No evidence of bowel obstruction, no evidence of free air. Cantor catheter within the bladder. Increased density of the urine within the bladder. This could be either contrast or hemorrhage, 15 mm filling defect within the bladder lateral to the Cantor catheter to the right of midline. ASSESSMENT AND PLAN: 1. This is a 68-year-old male who presents with gross hematuria, recently underwent laser procedure for his prostate, on Coumadin for his deep venous thrombosis. INR is supratherapeutic at 7.1, p.o. vitamin K ordered in the ER. We will also give IV vitamin K 2.5. Follow PT/INR. Blood consent obtained. We will transfuse if hemoglobin further drops. Hemoglobin is stable currently and hemodynamics are stable. Closely monitoring on tele floor. Urology consult. N.p.o. after midnight. Continue Cantor with bladder irrigation. 2. Diabetes. We will hold his metformin. We will decrease Lantus from 30 b.i.d. to 15 units b.i.d. keeping n.p.o. after midnight. Placed on insulin sliding scale. Follow his blood sugars. Follow HbA1c levels. 3. Hypertension. Continue his amlodipine, chlorthalidone, lisinopril. Monitor the blood pressure. 4. Hyperlipidemia. Continue statin. 5. History of deep venous thromboses in both lower extremities. Last deep venous thrombosis was in 03/2018. Holding his Coumadin, also reversing his INR with vitamin K. If the patient is off Coumadin for prolonged period of time, may need to be considered an IVC filter. 6. History of benign prostatic hypertrophy status post laser surgery on Proscar. 7. Asthma in remission, stable. 8. Deep venous thrombosis on sequential compression devices for now. 9. Disposition: Close monitoring in the tele floor. Level 1, full code. MTDD
[2018-12-03 01:04] LABS: Hemoglobin 11.3 g/dL (14.0-18.0)
[2018-12-03 05:32] LABS: Basophils # (auto) 0.03 K/uL (0-0.2); Basophils % (auto) 0.3 %; Eosinophils # (auto) 0.61 K/uL (0-0.5); Eosinophils % (auto) 6.6 %; Hematocrit (blood only) 34.4 % (42-52); Hemoglobin 11.8 g/dL (14.0-18.0); Immature Granulocytes # (auto) 0.03 K/uL (0.00-0.02); Immature Granulocytes % (auto) 0.3 %; Lymphocytes # (auto) 2.44 K/uL (1.2-3.4); Lymphocytes % (auto) 26.5 %; Mean Corpuscular Hgb Conc 34.3 g/dL (32-36); Mean Corpuscular Volume 87.8 fL (80-100); Mean Platelet Volume 9.6 fL (7.4-10.4); Monocytes # (auto) 0.74 K/uL (0.11-0.59); Neutrophils # (auto) 5.36 K/uL (1.4-6.5); Neutrophils % (auto) 58.3 %; Platelet Count 201 K/uL (130-400); RDW Coefficient of Variation 13.8 % (11.5-14.5); RDW Standard Deviation 44.3 fL (36.4-46.3); Red Blood Count 3.92 M/uL (4.7-6.1); White Blood Count 9.21 K/uL (4.8-10.8)
[2018-12-03 05:48] LABS: Prothrombin Time 19.3 Seconds (9.0-12.0)
[2018-12-03 06:09] LABS: BUN Creatinine Ratio 13.8 (10-20); Calcium 8.6 mg/dl (8.5-10.1); Creatinine Clr Calc Pharmacy 55.8 ml/min; Est GFR (Non-African American) 57.8; Magnesium 1.4 mg/dl (1.8-2.4); Potassium 3.7 mmol/L (3.5-5.1)
[2018-12-03 06:37] LABS: Estimated Average Glucose 177 mg/dl; Hemoglobin A1C 7.8 % (4.5-5.6)
--- NOTE | 2018-12-03 08:03 | Urology Consultation ---
Date of Consultation December 03, 2018 Assessment & Plan (1) Acute urinary retention: 68YO male, s/p GLTURP ~3 weeks ago with clot retention in the setting of supratherapeutic INR. Hematuria appears to be improving, I suspect this will continue. Cantor is patent draining pink urine, no clot appreciated. No pain or bladder distention. Continue hand irrigation of catheter PRN. No acute URO intervention today, OK to provide diet. Will continue to closely monitor. (2) Hematuria: (3) Supratherapeutic INR: History of Present Illness Reason for Consultation: Hematuria Attending Physician: Stewart Canas MD History of Present Illness 68YO male, s/p GLTURP ~3 weeks ago with clot retention in the setting of supratherapeutic INR. Patient reports intermittent bleeding beginning Sunday. Bleeding significantly worsened and patient was unable to void which brought him to the ER. Cantor was placed and irrigated, remains in place and patent. No fevers/chills. No nausea/vomiting. No pain. Allergies Allergy/AdvReac Type Severity Reaction Status Date / Time morphine AdvReac Severe Vomiting Verified 12/02/18 14:59 Home Medications Home Medications Medication Instructions Recorded Confirmed Type Lantus Solostar U-100 Insulin 30 unit SUBCUT BID 10/18/18 12/02/18 History amlodipine 5 mg PO QPM 10/18/18 12/02/18 History chlorthalidone 25 mg PO QAM 10/18/18 12/02/18 History cholecalciferol (vitamin D3) 1,000 unit PO QAM 10/18/18 12/02/18 History [Vitamin D3] ferrous sulfate 325 mg PO BID 10/18/18 12/02/18 History gabapentin 200 mg PO QPM 10/18/18 12/02/18 History lisinopril 40 mg PO BID 10/18/18 12/02/18 History metformin 1,000 mg PO BID 10/18/18 12/02/18 History pramipexole [Mirapex] 0.5 mg PO QPM 10/18/18 12/02/18 History warfarin [Coumadin] 10 mg PO QAM #0 tab 10/31/18 12/02/18 Rx finasteride 5 mg PO DAILY 12/02/18 12/02/18 History rosuvastatin 10 mg PO DAILY 12/02/18 12/02/18 History Patient History Medical History Multiple sclerosis (Chronic) DM type 2 (diabetes mellitus, type 2) (Chronic) Kidney stone (Chronic) CKD (chronic kidney disease), stage III (Chronic) Hypertension (Chronic) Hyperlipidemia (Chronic) GERD (gastroesophageal reflux disease) (Chronic) 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 Cataract Chronic kidney disease Stage III. follows w/ dr. 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 Galloway, has not had symptoms beyond muscle twitches since the early Osteoarthritis Thyroid nodule Surgical History S/P appendectomy (Chronic) History of carpal tunnel surgery (Chronic) S/P rotator cuff repair (Chronic) H/O arthroscopic knee surgery (Chronic) History of total right knee replacement (Chronic) History of appendectomy History of arthroscopy of left knee History of cardiac cath 15 years ago - CP led to cath - [place] - no stents/angioplasty, ruled indigestion - does not follow w/ cardio History of carpal tunnel release BL History of cystoscopy History of knee joint replacement x 2 rt knee History of repair of rotator cuff BL History of surgery LLE - hardware present History of tooth extraction Status post biopsy of thyroid gland benign Family History Daughter History of anesthesia reaction PONV Grandfather (Paternal) Family history of diabetes mellitus Mother Family history of diabetes mellitus Father Family history of diabetes mellitus Social History Preferred Language: Bermudian Communication Ability: Effective 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 Department Required: No Beliefs That Will Affect Care: None marital status: Current Living Situation: Spouse current occupational status: retired Other Information That Helps Us Care for You: No Feels Safe at Home: Yes Safety Concerns: Feels Safe At This Time Smoking Status: Never smoker Tobacco Type: smokeless tobacco Do You Dip or Chew Tobacco: Yes Second Hand Exposure: Yes ( SMOKES) Tobacco Cessation Education Requested by Patient: No Hx Alcohol Use: Yes Alcohol type: beer and wine Hx Substance Use: No Review of Systems Constitutional: no fever and no chills Eyes: no worsening vision Ear, Nose, Mouth, Throat: no hearing loss Respiratory: no dyspnea Cardiovascular: no chest pain Gastrointestinal: no nausea and no vomiting Genitourinary: + hematuria Musculoskeletal: no back pain Neurologic: no confusion Psychiatric: no problem reported Endocrine: no fatigue Physical Exam Constitutional: WD/WN, vitals as above ENMT: Ears: no hearing impairment Neck: normal visual inspection Respiratory: normal respiratory effort; does not use accessory muscles Cardiovascular: Vessels: no JVD Gastrointestinal (Abdomen): Inspection/Auscultation: abdomen not distended Percussion/Palpation: abdomen soft; abdomen nontender Psychiatric: A+Ox3, euthymic affect Genitourinary: Cantor in place, patent, draining light pink urine without clot. Results & Data Vital Signs (Past 12 Hours) Vital Signs Temp Pulse Resp BP Pulse Ox 12/03/18 07:53 36.6 C 64 18 132/84 96 12/03/18 03:14 36.6 C 60 17 125/74 96 12/02/18 23:25 36.7 C 76 17 125/71 98 (1) Hematuria Hematuria type: unspecified type Qualified Code(s): R31.9 - Hematuria, unspecified
[2018-12-03] MEDS: CHOLECALCIFEROL 1,000 UNITS TAB PO SCH (08:43)
[2018-12-03] MEDS: FINASTERIDE 5 MG TAB PO SCH (08:43)
[2018-12-03] MEDS: ROSUVASTATIN CALCIUM 10 MG TAB PO SCH (08:43)
[2018-12-03] MEDS: FERROUS SULFATE 325 MG TAB PO SCH ×2 (08:44→19:59)
[2018-12-03] MEDS: CHLORTHALIDONE 25 MG TAB PO SCH (08:44)
[2018-12-03] MEDS: LISINOPRIL 40 MG TAB PO SCH ×2 (08:44→20:00)
[2018-12-03] MEDS: INSULIN ASPART 100 UNITS/ML 3 ML PEN SC SCH ×4 (08:45→20:52)
[2018-12-03] MEDS: SODIUM CHLORIDE 0.9% 1000ML 1,000 ML IV SCH ×2 (08:45→20:50)
[2018-12-03] MEDS: INSULIN GLARGINE SOLOSTAR 100 UNITS/ML 3 ML PEN SC SCH ×2 (08:45→20:51)
[2018-12-03] MEDS: MAGNESIUM SULFATE / D5W 1 GM/100 ML BAG IV SCH ×2 (10:11→10:57)
[2018-12-03 12:56] LABS: Hemoglobin 11.6 g/dL (14.0-18.0)
--- NOTE | 2018-12-03 17:47 | Hospitalist Progress Note ---
Date of Service December 03, 2018 Assessment & Plan (1) Hematuria: Present on admission with gross hematuria Mostly due to supratherapeutic INR on coumadin Recent laser prostate procedure on 10/31 INR on admission 7.1 and received Vit K Hgb on admission 13.4, today 11.6 Coulter in placed and urine is very light pink Urology on board recommended to continue hand irrigation of catheter PRN Continue monitor CBC No plan for any urology intervention now Continue holding coumadin Continue monitor Closely (2) Supratherapeutic INR: 2. Diabetes. We will hold his metformin. We will decrease Lantus from 30 b.i.d. to 15 units b.i.d. keeping n.p.o. after midnight. Placed on insulin sliding scale. Follow his blood sugars. Follow HbA1c levels. INR 7.1 on admission and received vit K INR 2 today Continue holding coumadin Monitor PT/INR Hypertension. BP stable Continue his amlodipine, chlorthalidone, lisinopril. CKD stage 3 Creatinine stable Avoid any nephrotoxic agents Monitor BMP Monitor the blood pressure. Hypomagnesemia Mg 1.4 today Mg replaced Monitor magnesium level Hyperlipidemia. Continue statin. Hx DVT in B/L LE On chronic coumadin used INR 7.1 on admission Received Vit K and INR 2 today Continue holding coumadin due to Hematuria History of benign prostatic hypertrophy S/P laser surgery on 10/31 by [place] [facility] Continue coulter Continue Proscar Will consider to add pyridium prn for the bladder discomfort Asthma stable. DVT px on SCDs due to hematuria Disposition: Discharge once stable from urology standpoint Subjective Pt was seen and examined Lying in bed with no distress Pt said that he feels fine He said that he does have a lot of bladder discomfort Denies any chest pain, palpitation, dizziness and SOB Physical Exam Physical Exam: General- No acute distress Head- atraumatic Eyes- PERRL, EOMI, ENT- oropharynx clear Neck- supple, no JVD Lungs- clear to auscultation Heart- regular rhythm; no murmur Abdomen- normal bowel sounds, soft, nontender FLUTE POLISHER: Coulter in place Extremities- no calf tenderness Neuro- alert, oriented x 3; PERRL, EOMI; no facial palsy; no dysarthria Skin- warm & dry Results & Data Vital Signs (Past 12 Hours) Vital Signs Temp Pulse Pulse Pulse Resp BP BP 12/03/18 15:43 36.7 C 71 18 134/78 12/03/18 15:40 67 12/03/18 11:26 36.8 C 72 18 130/74 12/03/18 07:53 36.6 C 64 18 132/84 Pulse Ox 12/03/18 15:43 97 12/03/18 15:40 12/03/18 11:26 94 12/03/18 07:53 96 (1) Hematuria Hematuria type: unspecified type Qualified Code(s): R31.9 - Hematuria, unspecified
[2018-12-03] MEDS: GABAPENTIN 100 MG CAP PO SCH (19:59)
[2018-12-03] MEDS: PRAMIPEXOLE DIHYDROCHLO 0.25 MG TAB PO SCH (19:59)
[2018-12-03] MEDS: AMLODIPINE BESYLATE 5 MG TAB PO SCH (20:00)
[2018-12-04 07:09] LABS: INR 1.1 (0.9-1.1); Prothrombin Time 11.6 Seconds (9.0-12.0)
[2018-12-04 07:24] LABS: Hematocrit (blood only) 34.2 % (42-52); Mean Corpuscular Hgb Conc 35.1 g/dL (32-36); Mean Corpuscular Volume 87.5 fL (80-100); Mean Platelet Volume 9.7 fL (7.4-10.4); Platelet Count 208 K/uL (130-400); RDW Coefficient of Variation 13.8 % (11.5-14.5); RDW Standard Deviation 43.9 fL (36.4-46.3); Red Blood Count 3.91 M/uL (4.7-6.1); White Blood Count 8.31 K/uL (4.8-10.8)
[2018-12-04 07:30] LABS: BUN Creatinine Ratio 11.7 (10-20); Calcium 8.4 mg/dl (8.5-10.1); Creatinine Clr Calc Pharmacy 52.7 ml/min; Est GFR (African American) 62.8; Est GFR (Non-African American) 54.2; Magnesium 1.6 mg/dl (1.8-2.4); Potassium 3.8 mmol/L (3.5-5.1)
[2018-12-04] MEDS: INSULIN ASPART 100 UNITS/ML 3 ML PEN SC SCH ×4 (07:45→21:25)
[2018-12-04] MEDS: CHOLECALCIFEROL 1,000 UNITS TAB PO SCH (07:46)
[2018-12-04] MEDS: LISINOPRIL 40 MG TAB PO SCH ×2 (07:46→21:01)
[2018-12-04] MEDS: FINASTERIDE 5 MG TAB PO SCH (07:46)
[2018-12-04] MEDS: INSULIN GLARGINE SOLOSTAR 100 UNITS/ML 3 ML PEN SC SCH ×2 (07:46→20:58)
[2018-12-04] MEDS: ROSUVASTATIN CALCIUM 10 MG TAB PO SCH (07:47)
[2018-12-04] MEDS: CHLORTHALIDONE 25 MG TAB PO SCH (07:47)
[2018-12-04] MEDS: FERROUS SULFATE 325 MG TAB PO SCH ×2 (07:47→21:00)
[2018-12-04] MEDS ORDERED: HEPARIN SOD (PORCINE) 1000 UNIT/ML 10 ML VIAL ONE (08:08)
[2018-12-04] MEDS ORDERED: fentaNYL citrate 100 MCG/2 ML VIAL ONE (08:08)
[2018-12-04] MEDS ORDERED: MIDAZOLAM HCL 1 MG/ML 2ML VIAL ONE (08:08)
[2018-12-04] MEDS: MAGNESIUM SULFATE / D5W 1 GM/100 ML BAG IV SCH ×4 (09:31→13:04)
--- NOTE | 2018-12-04 10:14 | Hospitalist Progress Note ---
Date of Service December 04, 2018 Assessment & Plan (1) Acute urinary retention: Cantor in place. H/o BPH s/p laser prostate surgery on 10/31/18. Finasteride. Cont management per Urology. (2) Hematuria: INR now 1.0, expect hematuria to continue to clear. 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 Ordered to be on coumadin lifelong. Will review outpatient records. Will likely need to come off this for a short while. Will await definitive Uro plan and cont to hold. (3) Hypomagnesemia: 1.6, replace and repeat in am. Pt on chlorthalidone. (4) Supratherapeutic INR: reversed with vitamin K (5) Multiple sclerosis: stable, chronic since 1970s. Pt ambulatory, reports occasional muscle spasms but no other issues. (6) DM type 2 (diabetes mellitus, type 2): Metformin and Lantus at home. Held metformin, cont basal/bolus insulin while hospitalized. Currently glucose at goal. (7) HTN (hypertension): at goal, cont chlorthalidone per home regimen. (8) CKD (chronic kidney disease), stage III: At baseline. (9) DVT prophylaxis: SCDs, chemoprophylaxis contraindicated in setting of hematuria Full Code Dispo-pending Urology recs. Fani Haynes DO [facility] Hospitalist Subjective Mr. Hurst is a 68-year-old man who presented to the emergency room with an inability to void urine. He had had prostate surgery on 10/21 and had recently developed hematuria with occasional passing of large clots. He reported persistent abdominal bloating and discomfort of the past few days as well as pelvic discomfort and pain for the past few weeks. He was on Coumadin and his INR was 7.1. He was given IV and p.o. vitamin K which normalized INR to 1.0. In the ER a bladder scan revealed 885 cc of urine and a Cantor catheter was placed with 1100 cc of bloody urine voided. There was difficulty flushing the catheter after initial drainage and there was a significant clot in the bladder. Urology was consulted and it continued with hand flushing of the catheter with improvement in hematuria as the INR normalized. He is on Coumadin for history of deep venous thrombosis in both lower extremities in 2018. He is doing well with some reported soreness along the lower back area and some soreness in his lower abdomen. He reports no flushes were done onvernight, and he has noticed that more clots are passing with ambulation. Urine color is clearing up, but still some gross blood present in the catheter bag. Otherwise, feels well. Review of Systems Review of Systems: All systems reviewed & are unremarkable except as noted in HPI & below Physical Exam Physical Exam: CONSTITUTIONAL: WNWD, vitals as above, generally well- appearing EYES: normal conjuctivae, no scleral icterus RESPIRATORY: clear to auscultation bilaterally, no crackles, rales or wheezes, normal respiratory effort CARDIOVASCULAR: regular rate and rhythm, S1 and 2 heard without murmurs, gallops or rubs, no JVD, no peripheral edema CHEST: inspection of chest was normal GASTROINTESTINAL: normal bowel sounds, soft, diffuse tenderness concentrated in lower abdomen. Abdomen not distended. No CVA tenderness. : Cantor in place with liang colored urine in bag. MUSCULOSKELETAL: strength 5/5 throughout, head is normocephalic and atraumatic SKIN: warm and dry NEUROLOGIC: CN 2-12 grossly intact, no gross focal deficits. PSYCHIATRIC: alert cooperative and oriented to person, place and time. Results & Data Vital Signs (Past 12 Hours) Vital Signs Temp Pulse Pulse Resp BP BP Pulse Ox 12/04/18 08:17 36.6 C 69 18 132/82 96 12/04/18 06:57 36.5 C 69 16 129/80 95 12/04/18 04:09 36.5 C 57 L 16 94/54 L 96 12/03/18 23:59 36.6 C 67 16 109/62 96 12/03/18 23:47 61 Laboratory Results Short CBC 12/03/18 12/04/18 Range/Units 12:44 06:29 WBC 8.31 (4.8-10.8) K/uL Hgb 11.6 L 12.0 L (14.0-18.0) g/dL Hct 34.0 L 34.2 L (42-52) % Plt Count 208 (130-400) K/uL BMP 12/04/18 06:29 Sodium 145 Potassium 3.8 Chloride 112 H Carbon Dioxide 27 BUN 16 Creatinine 1.33 Glucose 117 H Calcium 8.4 L Medications Administered Current Inpatient Medications Acetaminophen (Tylenol) 650 mg PO Q4H PRN PRN Reason: Pain or Fever Stop: 01/01/19 19:02 Last Admin: 12/02/18 23:53 Dose: 650 mg Documented by: Amlodipine Besylate (Norvasc) 5 mg PO QPM JOYCE Stop: 01/01/19 20:59 Last Admin: 12/03/18 20:00 Dose: 5 mg Documented by: Chlorthalidone (Hygroton) 25 mg PO QAM JOYCE Stop: 01/02/19 08:59 Last Admin: 12/04/18 07:47 Dose: 25 mg Documented by: Dextrose (Dextrose 50%) 25 - 50 ml IV UD PRN; Protocol PRN Reason: Hypoglycemia Protocol Stop: 01/01/19 19:14 Ferrous Sulfate (Feosol) 325 mg PO BID [facility] Stop: 01/01/19 20:59 Last Admin: 12/04/18 07:47 Dose: 325 mg Documented by: Finasteride (Proscar) 5 mg PO DAILY JOYCE Stop: 01/02/19 08:59 Last Admin: 12/04/18 07:46 Dose: 5 mg Documented by: Gabapentin (Neurontin) 200 mg PO QPM JOYCE Stop: 01/01/19 20:59 Last Admin: 12/03/18 19:59 Dose: 200 mg Documented by: Glucagon (Glucagen) 1 mg IM UD PRN; Protocol PRN Reason: Hypoglycemia Protocol Stop: 01/01/19 19:14 Glucose (Glucose 40%) 15 - 30 gm PO UD PRN; Protocol PRN Reason: Hypoglycemia Protocol Stop: 01/01/19 19:14 Glucose (Dex4 Glucose) 4 - 8 tabs PO UD PRN; Protocol PRN Reason: Hypoglycemia Protocol Stop: 01/01/19 19:14 Sodium Chloride (Nss 1000ml) 1,000 mls @ 80 mls/hr IV .[id number] JOYCE Stop: 01/01/19 19:02 Last Infusion: 12/04/18 09:31 Dose: Infused Documented by: Magnesium Sulfate/Dextrose (Magnesium Sulfate / D5w) 1 gm in 100 mls @ 100 mls/hr IV Q1H [facility] Stop: 12/04/18 13:29 Last Admin: 12/04/18 09:31 Dose: 100 mls/hr Documented by: Insulin Aspart (Novolog Flexpen) 0 units SC ACHS [facility] Stop: 01/01/19 20:59 Last Admin: 12/04/18 07:45 Dose: 3 units Documented by: Insulin Glargine (Lantus Solostar Pen) 15 units SC BID JOYCE Stop: 01/01/19 20:59 Last Admin: 12/04/18 07:46 Dose: 15 units Documented by: Lisinopril (Zestril) 40 mg PO BID JOYCE Stop: 01/01/19 20:59 Last Admin: 12/04/18 07:46 Dose: 40 mg Documented by: Miscellaneous (Carbohydrates For Hypoglycemia) 15 - 30 gm PO UD PRN PRN Reason: Hypoglycemia Treatment Stop: 01/01/19 19:14 Nitroglycerin (Nitrostat) 0.4 mg SL UD PRN PRN Reason: Chest Pain Stop: 01/01/19 19:02 Ondansetron HCl (Zofran) 4 mg IV Q6H PRN PRN Reason: Nausea Stop: 01/01/19 19:02 Pramipexole Dihydrochloride (Mirapex) 0.75 mg PO QPM JOYCE Stop: 01/01/19 20:59 Last Admin: 12/03/18 19:59 Dose: 0.75 mg Documented by: Rosuvastatin Calcium (Crestor) 10 mg PO DAILY [facility] Stop: 01/02/19 08:59 Last Admin: 12/04/18 07:47 Dose: 10 mg Documented by: Vitamin D (Vitamin D3) 1,000 units PO QAM [facility] Stop: 01/02/19 08:59 Last Admin: 12/04/18 07:46 Dose: 1,000 units Documented by: (1) Hematuria Hematuria type: unspecified type Qualified Code(s): R31.9 - Hematuria, unspecified
--- NOTE | 2018-12-04 12:31 | Urology Progress Note ---
Date of Service December 04, 2018 Assessment & Plan (1) Hematuria: 68YO male, s/p GLTURP ~3 weeks ago with clot retention in the setting of supratherapeutic INR. Urine continues to improve - light pink without clot upon exam. Will maintain Cantor as urine is not completely clear. Continue hand irrigation PRN. (2) Supratherapeutic INR: Subjective 68YO male, s/p GLTURP ~3 weeks ago with clot retention in the setting of supratherapeutic INR. Patient reports feeling well today. His urine continues to improve. Per patient no hand irrigation required overnight. Urine in tubing is light pink. No fever/chills. No nausea/vomiting. Review of Systems Review of Systems: All systems reviewed & are unremarkable except as noted in HPI & below Physical Exam Physical Exam: WN/WD NAD. Resp effort normal. No JVD. Abd soft, nontender. : bladder normal to palpation. Cantor in place draining pink urine, no clot. A&O x3, appropriate affect. Results & Data Vital Signs (Past 12 Hours) Vital Signs Temp Pulse Resp BP BP Pulse Ox 12/04/18 12:21 36.7 C 76 18 157/81 H 96 12/04/18 08:17 36.6 C 69 18 132/82 96 12/04/18 06:57 36.5 C 69 16 129/80 95 12/04/18 04:09 36.5 C 57 L 16 94/54 L 96 (1) Hematuria Hematuria type: unspecified type Qualified Code(s): R31.9 - Hematuria, unspecified
[2018-12-04] MEDS: SODIUM CHLORIDE 0.9% 1000ML 1,000 ML IV SCH (14:14)
[2018-12-04] MEDS: PRAMIPEXOLE DIHYDROCHLO 0.25 MG TAB PO SCH (21:00)
[2018-12-04] MEDS: AMLODIPINE BESYLATE 5 MG TAB PO SCH (21:01)
[2018-12-04] MEDS: GABAPENTIN 100 MG CAP PO SCH (21:01)
[2018-12-05 08:20] LABS: Hematocrit (blood only) 38.7 % (42-52); Hemoglobin 13.5 g/dL (14.0-18.0); Mean Corpuscular Hgb Conc 34.9 g/dL (32-36); Mean Corpuscular Volume 88.4 fL (80-100); Mean Platelet Volume 9.7 fL (7.4-10.4); Platelet Count 219 K/uL (130-400); RDW Coefficient of Variation 13.7 % (11.5-14.5); RDW Standard Deviation 44.4 fL (36.4-46.3); Red Blood Count 4.38 M/uL (4.7-6.1); White Blood Count 8.62 K/uL (4.8-10.8)
[2018-12-05] MEDS: FINASTERIDE 5 MG TAB PO SCH (08:25)
[2018-12-05] MEDS: LISINOPRIL 40 MG TAB PO SCH (08:25)
[2018-12-05] MEDS: FERROUS SULFATE 325 MG TAB PO SCH (08:25)
[2018-12-05] MEDS: CHLORTHALIDONE 25 MG TAB PO SCH (08:25)
[2018-12-05] MEDS: ROSUVASTATIN CALCIUM 10 MG TAB PO SCH (08:25)
[2018-12-05] MEDS: CHOLECALCIFEROL 1,000 UNITS TAB PO SCH (08:26)
[2018-12-05] MEDS: INSULIN ASPART 100 UNITS/ML 3 ML PEN SC SCH ×2 (08:28→12:50)
[2018-12-05] MEDS: INSULIN GLARGINE SOLOSTAR 100 UNITS/ML 3 ML PEN SC SCH (08:29)
[2018-12-05 08:30] LABS: Prothrombin Time 10.6 Seconds (9.0-12.0)
[2018-12-05 08:53] LABS: BUN Creatinine Ratio 11.9 (10-20); Calcium 9.1 mg/dl (8.5-10.1); Creatinine Clr Calc Pharmacy 54.3 ml/min; Est GFR (African American) 65.1; Est GFR (Non-African American) 56.2; Magnesium 2.2 mg/dl (1.8-2.4); Potassium 3.5 mmol/L (3.5-5.1)
--- NOTE | 2018-12-05 09:58 | Urology Progress Note ---
Date of Service December 05, 2018 Assessment & Plan (1) Hematuria: Still improving. Urine looks better today. 1x episode of clot requiring hand irrigation overnight. Likely removal of Coulter this afternoon if remaining clear. Will check in again this afternoon. Patient is contacting PCP for follow up appointment post-hospitalization within 1 week. Will tentatively recommend that patient hold Coumadin until this visit as patient reports that PCP is considering Coumadin alternatives. Likely stable for DC later today if urine remains clear with activity. Ambulation encouraged. (2) Supratherapeutic INR: Subjective 68YO male, s/p GLTURP ~3 weeks ago with clot retention in the setting of supratherapeutic INR. Patient reports feeling well today. His urine continues to improve. Per patient no hand irrigation required overnight. Urine in tubing is light pink. No fever/chills. No nausea/vomiting. Review of Systems Review of Systems: All systems reviewed & are unremarkable except as noted in HPI & below Physical Exam Physical Exam: WN/WD NAD. Resp effort normal. No JVD. Abd soft, nontender. A&O x 3, appropriate affect. : coulter in place, patent, draining clear pink urine. Results & Data Vital Signs (Past 12 Hours) Vital Signs Temp Pulse Resp BP Pulse Ox 12/04/18 23:00 36.7 C 68 18 106/58 L 95 (1) Hematuria Hematuria type: unspecified type Qualified Code(s): R31.9 - Hematuria, unspecified
--- NOTE | 2018-12-05 14:44 | Discharge Summary ---
Date of Service December 05, 2018 Admission HPI Per Admitting Provider HISTORY OF PRESENT ILLNESS: This is a 68-year-old male with past medical history significant for diabetic polyneuropathy, hyperlipidemia, type 2 diabetes, goiter, asthma, hypertension, GERD, polymyalgia rheumatica, multiple sclerosis, history of DVT; first DVT was in the right lower extremity about couple of years ago, second DVT was in the left lower extremity in 03/2008 on Coumadin, had a laser procedure done to his prostrate on 10/31/2018, postprocedure was on Lovenox bridge and Coumadin, currently he is on Coumadin and he was doing okay, but last Sunday he noticed some blood tinged urine and and got worse on sunday with some clots and today morning he could not pee, he got worried and had some abdominal pain, so he came to the ER. The CT scan was done in the ER showing 15 mm filling defect of the bladder lateral to the Coulter catheter to the right of midline.Coulter catheter was placed in ER and the catheter was flushed and is draining some hematuria. The patient's INR is also elevated at 7.1.Currently resting comfortably and hemodynamically stable. He has some mild soreness in the lower abdomen. Denies any headache, no dizziness, no blurred vision. No earache, no runny nose, no sore throat, no difficulty swallowing. Appetite is good. Does not sleep well, but sleeps on and off in the morning, snores in the night. Appetite is good. No chest pain, no shortness of breath, no cough, no fever, feeling somewhat cold. No nausea, no vomiting. Has some diarrhea, he attributes it to metformin. Does not ambulate well because of his knee surgeries. He has pain in the right knee, but does not use any walker or cane. No swelling in the legs. Admission Exam Per Admitting Provider ALLERGIES: No known drug allergies. PHYSICAL EXAMINATION: GENERAL: The patient is of moderate build, not in acute distress. VITAL SIGNS: Temperature 36.9, pulse 74, respiratory rate 18, blood pressure 147/91, oxygen 95% on room air. HEENT: No pallor, no icterus. Pupils equal, round, and reactive to light. NECK: No JVD, no neck masses, no carotid bruits. CARDIOVASCULAR: S1, S2 heard, regular rate and rhythm, no murmur, no gallop. RESPIRATORY SYSTEM: Normal AP diameter. No accessory muscle use. No wheezing, no crackles. ABDOMEN: Soft, bowel sounds present. Nontender. No distention. CENTRAL NERVOUS SYSTEM: Cranial nerves II-XII grossly nonfocal. EXTREMITIES: No edema, no erythema. Principal Diagnosis Post-operative hematuria Supratherapeutic INR hypomagnesemia Discharge Data Allergies Allergy/AdvReac Type Severity Reaction Status Date / Time morphine AdvReac Severe Vomiting Verified 12/02/18 14:59 Consultations 12/02/18 16:52 ED Decision to Admit Stat 12/02/18 19:03 Consult Case Management - Discharge Planning Routine 12/03/18 08:00 Consult Urology Routine Ordered Studies 12/02/18 15:14 CT abd pelvis wo con Stat Hospital Course (1) Acute urinary retention: (2) Hematuria: INR now 1.0, expect hematuria to continue to clear. 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 Ordered to be on coumadin lifelong. Will review outpatient records. Will likely need to come off this for a short while. Will await definitive Uro plan and cont to hold. (3) Hypomagnesemia: 1.6, replace and repeat in am. Pt on chlorthalidone. (4) Supratherapeutic INR: reversed with vitamin K (5) Multiple sclerosis: (6) DM type 2 (diabetes mellitus, type 2): (7) HTN (hypertension): (8) CKD (chronic kidney disease), stage III: Mr. Hurst is a 68-year-old man who presented to the emergency room with an inability to void urine. He had had prostate surgery on 10/31 and developed hematuria with occasional passing of large clots. He reported persistent abdominal bloating and discomfort of the past few days as well as pelvic discomfort and pain for the past few weeks. He was on Coumadin and his INR was 7.1. He was given IV and p.o. vitamin K which normalized INR to 1.0. In the ER a bladder scan revealed 885 cc of urine and a Coulter catheter was placed with 1100 cc of bloody urine voided. There was difficulty flushing the catheter after initial drainage and there was a significant clot in the bladder. Urology was consulted and it continued with hand flushing of the catheter with improvement in hematuria as the INR normalized. He is on Coumadin for history of deep venous thrombosis in both lower extremities in 2018. He did well with some reported soreness along the lower back area and some soreness in his lower abdomen. He reports no flushes were done onvernight, and he noticed that more clots are passing with ambulation. Urine color cleared after a couple of days of flushing the coulter and this was taken out. At time of discharge he was hemodynamically stable and afebrile. He was mentating and ambulating at baseline and was tolerating PO. Physical exam was unremarkable. He was sent dee e in stable condition with close primary care follow-up. Total Time Total Time Spent Total Time Spent (In Minutes): 60 minutes Total Time Includes: Examination of the Patient, Discharge Planning, Medication Reconciliation, Communication With Other Providers and Other (scheduled outpatient followup) Discharge Plan Discharge Items Patient Disposition: Home - Self-Care Reason For Visit: HEMATURIA Discharge Diagnosis: post operative hematuria supratherapeutic INR Condition: Good Discharge Goals: Improve disease control and Improve function Activity: Resume your previous activity Non-emergency contact: Primary Care Provider Call non-emergency contact if: you have any medication questions, your symptoms worsen, your pain is not controlled and you have a fever Follow-up/Referrals: Moises Dee MD [Physician] - Nacho Chen MD [Primary Care Provider] - Diet: Carb Consistent or DM2 Addtl Provider Instructions: Please take all medications as prescribed on discharge list below. Please continue to hold on taking coumadin until restarted/readdressed by your primary care physician at next week's follow-up. You have the following appointment with primary care: 12/18/2018 6:40 PM Nacho Chen III, MD [facility] Please follow-up with [facility] Urology as instructed and continue to follow all post-operative instructions. It was a pleasure taking care of you! Please call if you have any questions or problems. You can reach a [facility] hospitalist on duty at [facility] 24 hours a day by calling [phone]. Take care of yourself. Fani Haynes, DO [facility] Hospitalist Prescriptions: Continued chlorthalidone 25 mg Tablet 25 mg PO QAM RF: 0 amlodipine 10 mg Tablet 5 mg PO QPM RF: 0 ferrous sulfate 325 mg (65 mg iron) Tablet 325 mg PO BID RF: 0 metformin 1,000 mg Tablet 1,000 mg PO BID RF: 0 pramipexole [Mirapex] 0.25 mg Tablet 0.5 mg PO QPM RF: 0 gabapentin 100 mg Capsule 200 mg PO QPM RF: 0 lisinopril 40 mg Tablet 40 mg PO BID RF: 0 cholecalciferol (vitamin D3) [Vitamin D3] 1,000 unit Capsule 1,000 unit PO QAM RF: 0 Lantus Solostar U-100 Insulin 100 unit/mL (3 mL) Insulin Pen 30 unit SUBCUT BID RF: 0 finasteride 5 mg tablet 5 mg PO DAILY RF: 0 rosuvastatin 10 mg tablet 10 mg PO DAILY RF: 0 Discontinued warfarin [Coumadin] 5 mg Tablet 10 mg PO QAM Qty: 0 RF: 0 Stand-Alone Forms: Counts Include [facility] Discharge Orders: Discharge Order (Routine); Ordered 12/05/18 Ordered By: Fani Haynes Admission Data Admit Date/Time: 12/02/18 17:48 Attending Provider: Fani Haynes Admit Provider: Vick Pickard Primary Care Provider: Nacho Chen Other Providers: Vick Pickard ; Akshat Pimentel ; Rodolfo Gonzalez ; Moises Dee I. ; Leo Tamez ; Romelia Jacobson ; Dick Zhu II ; Alexus Mancilla Service: Medical Other Interventions: Discharge Summary Assessment (RN) Last Done: 12/05/18 14:07 DC Date/Time DO NOT enter until pt leaves facility: 12/05/18 15:30
== END 2018-12-05 15:30 | disposition home or self-care (01) | DRG 813 ==
LOC: ED 14:05 → 2S 17:48 → SUATTDRO 17:48 → 2S 18:29 → 4E 12-04 13:53
DX: D68.32 Hemorrhagic disorder due to extrinsic circulating anticoagulants; Z96.653 Presence of artificial knee joint, bilateral; J45.909 Unspecified asthma, uncomplicated; E78.5 Hyperlipidemia, unspecified; E11.42 Type 2 diabetes mellitus with diabetic polyneuropathy; R31.0 Gross hematuria; Z86.718 Personal history of other venous thrombosis and embolism; E83.42 Hypomagnesemia; F41.9 Anxiety disorder, unspecified; N40.0 Benign prostatic hyperplasia without lower urinary tract symptoms; N18.3 Chronic kidney disease, stage 3 (moderate); Z79.01 Long term (current) use of anticoagulants; M35.3 Polymyalgia rheumatica; G35 Multiple sclerosis; I12.9 Hypertensive chronic kidney disease with stage 1 through stage 4 chronic kidney disease, or unspecified chronic kidney disease; K21.9 Gastro-esophageal reflux disease without esophagitis

== ENCOUNTER 2019-04-16 15:54 | Inpatient (IN) ==
[2019-04-16 16:47] LABS: Basophils # (auto) 0.03 K/uL (0-0.2); Basophils % (auto) 0.5 %; Eosinophils # (auto) 0.46 K/uL (0-0.5); Eosinophils % (auto) 7.5 %; Hematocrit (blood only) 37.6 % (42-52); Hemoglobin 13.1 g/dL (14.0-18.0); Immature Granulocytes # (auto) 0.03 K/uL (0.00-0.02); Immature Granulocytes % (auto) 0.5 %; Lymphocytes # (auto) 1.67 K/uL (1.2-3.4); Lymphocytes % (auto) 27.4 %; Mean Corpuscular Hgb Conc 34.8 g/dL (32-36); Mean Corpuscular Volume 88.9 fL (80-100); Mean Platelet Volume 10.6 fL (7.4-10.4); Monocytes # (auto) 0.45 K/uL (0.11-0.59); Monocytes % (auto) 7.4 %; Neutrophils # (auto) 3.46 K/uL (1.4-6.5); Neutrophils % (auto) 56.7 %; Platelet Count 233 K/uL (130-400); RDW Standard Deviation 41.8 fL (36.4-46.3); Red Blood Count 4.23 M/uL (4.7-6.1)
[2019-04-16 17:02] LABS: Appearance Urine Clear (Clear); Bilirubin Urine Negative (Negative); Blood Urine Negative (Negative); Color Urine Yellow; Glucose Urine UA 3+ (Negative); Ketones Urine Negative (Negative); Leukocyte Esterase Urine Negative (Negative); Nitrite Urine Negative (Negative); Protein Urine Negative (Negative); Specific Gravity Urine 1.029 (1.000-1.030); Urobilinogen Urine Negative (Negative)
[2019-04-16 17:16] LABS: Alanine Aminotransferase 21 U/L (12-78); Albumin Globulin Ratio 0.9 (0.9-2); Albumin Level 3.4 gm/dl (3.4-5.0); Alkaline Phosphatase 83 U/L (45-117); Aspartate Aminotransferase 9 U/L (15-37); BUN Creatinine Ratio 18.1 (10-20); Bilirubin,Total 0.3 mg/dl (0.2-1); Blood Urea Nitrogen 40 mg/dl (7-18); Calcium 9.7 mg/dl (8.5-10.1); Carbon Dioxide 21 mmol/L (21-32); Chloride 94 mmol/L (98-107); Creatinine Clr Calc Pharmacy 30.9 ml/min; Est GFR (African American) 33.8; Est GFR (Non-African American) 29.2; Glucose 721 mg/dl (70-99); Potassium 4.7 mmol/L (3.5-5.1); Sodium 126 mmol/L (136-145); Total Protein 7.4 gm/dl (6.4-8.2)
[2019-04-16 17:59] LABS: Troponin I < 0.015 ng/ml (0-0.045)
[2019-04-16 18:00] LABS: Beta-Hydroxybutyrate 2.75 mg/dl (0.2-2.81)
[2019-04-16] MEDS ORDERED: INSULIN REGULAR 250 UNITS in SODIUM CHLORIDE 0.9% 247.5 ML IV SCH (18:00)
--- NOTE | 2019-04-16 18:04 | CT Scan Report ---
CT head/brain wo con CLINICAL HISTORY: 68 years-old Male presenting with recurrent falls, uncontrolled diabetes. TECHNIQUE: Multidetector CT imaging of the head was performed without the use of intravenous contrast . IV contrast: None. One or more dose lowering techniques were used consistent with the principles of ALARA (as low as reasonably achievable), including automatic exposure control, mA or kV adjustment t o individual patient size, and/or use of iterative reconstruction. COMPARISON: Brain MR from 2018. CT DOSE (mGy.cm): The estimated cumulative dose is 773.57 mGy.cm. FINDINGS: Diet Counselor topogram: Unremarkable. Ventricles and sulci normal in size. No hemorrhage. Brain parenchyma normal in appearance with preser jean-pierre bahena-white differentiation. No acute territorial infarct. No mass effect or midline shift. No ext ra-axial fluid collection. Paranasal sinuses and mastoid air cells clear. Calvarium intact. IMPRESSION: 1. No acute intracranial abnormality. Electronically signed by: Shiraz Tineo M.D. 04/16/2019 6:03 PM
[2019-04-16] MEDS ORDERED: SODIUM CHLORIDE 0.9% 1000ML 1,000 ML IV ONE (18:05)
[2019-04-16] MEDS ORDERED: PHARMACY GLYCEMIC MGMT CONSULT PRN (18:27)
[2019-04-16] MEDS ORDERED: GLUCAGON FOR INJ 1 MG VIAL SQ PRN (18:43)
[2019-04-16] MEDS ORDERED: CARBOHYDRATES FOR HYPOGLYCEMIA PO PRN (18:43)
[2019-04-16] MEDS ORDERED: DEXTROSE 50% 50 ML SYRINGE IV PRN (18:43)
[2019-04-16] MEDS ORDERED: GLUCOSE 40% GEL 15 GM TUBE PO PRN (18:43)
[2019-04-16] MEDS ORDERED: GLUCOSE 10 TABS/TUBE PO PRN (18:43)
[2019-04-16 18:52] LABS: INR 0.9 (0.9-1.1); Partial Thromboplastin Ratio 0.9; Partial Thromboplastin Time 23.4 Seconds (21.0-31.0); Prothrombin Time 9.5 Seconds (9.0-12.0)
[2019-04-16] MEDS ORDERED: POTASSIUM CHLORIDE 10 MEQ in SODIUM CHLORIDE 0.9% 1000ML 1,000 ML IV SCH (19:00)
--- NOTE | 2019-04-16 19:00 | History & Physical Report ---
Date of Service April 16, 2019 Assessment & Plan (1) Hyperosmolar non-ketotic state in patient with type 2 diabetes mellitus: Hyperosmolar hyperglycemic state, secondary to be insulin dependent with Type 2 diabetes mellitus but patient non adherent due to financial costs -patient was off Lantus 30 units BID x 1 month -hold home dose metformin for now -started on insulin drip in the ED, continue insulin drip -pharmacy glycemic consult -IV fluids -will serially check blood sugars and comprehensive metabolic panel -check HbA1c -aspiration precautions, clear liquid diet for now Hyperosmolar Hyponatremia -serum sodium of 126 on admission is low because of elevated blood sugars -will expect the serum sodium on further lab work to improve with treating the hyperglycemia (2) HTN (hypertension): -continue home dose amlodipine 5 mg qhs -hold off home dose lisinopril and hold off home dose chlorthalidone because of acute kidney injury -monitor blood pressure (3) TOMÁS (acute kidney injury): Acute kidney injury on chronic CKD stage III -outpatient baseline creatinine around 1.5 -admission creatine around 2.22 -hold off home dose lisinopril of 40 mg BID (note that this is a high dose of lisinopril) -hold off home dose chlorthalidone 25 mg daily daily for now -on IV fluids (4) CKD (chronic kidney disease), stage III: -monitor renal function as described above History of Deep Vein Thrombosis in the past -history of deep vein thrombosis in 2016 and chronically is anticoagulated on Xarelto 20 mg daily -given acute kidney injury and that patient's DVT was in the past, will have patient be on renally dosed heparin 5000 units subc q12 hours for now -ultrasound of lower extremity ordered -if there is evidence of acute DVT on ultrasound, then patient should be on IV heparin drip -If no evidence of DVT then the resumption of Xarelto depends on renal function DVT prophylaxis: heparin subcutaneous 5000 units q12 hours as described above Code Status: Do Not Resuscitate /DO NOT INTUBATE. Despite some lethargy, patient was able to make this decision independently and this is also confirmed by patient's Monica at bedside family contact numbers [phone], Daughter Cecilia [phone] PT/OT Case management consult: to assist with patient's diabetes medication costs History of Present Illness This is a 68 year old male with PMH of Diabetes Mellitus Type 2 on Insulin (but has been off insulin x 1 month), Hypertension, Chronic Kidney Disease stage III, history of deep vein thrombosis in 2016 and chronically is anticoagulated on Xarelto who presents to the hospital with generalized weakness secondary to being off home dose insulin of Lantus 30 units BID for 1 month because of problems with affording the medications and found to be hyperglycemic to over 700. Patient was seen and evaluated in the ED who ordered IV fluids and started patient on insulin drip. Patient seen and examined at bedside. He appeared lethargic but able to give history which is corroborated by his and cooperative on physical exam. Patient and reports they were having trouble with insurance coverage over the insulin, off insulin in the last 30 days, and they actually were able to get the insulin supply today but patient feeling unwell and came to the emergency room and did not take the insulin at home On review of systems, he feels tired. patient denies symptoms of chest pain, palpitations, shortness of breath, abdominal pain, fevers. no dizziness .denies blood in urine and denies blood in stool Past surgical history: metal in ankles from previous surgeries, knee/shoulder/carpal tunnel procedures denies family history of medical issues Primary Care Provider: Nacho Chen MD Allergies Allergy/AdvReac Type Severity Reaction Status Date / Time morphine AdvReac Severe Vomiting Verified 04/16/19 17:04 rosuvastatin [From Crestor] AdvReac Intermediate Cramping Verified 04/16/19 17:04 of the Muscles Home Medications Home Medications Medication Instructions Recorded Confirmed Type Lantus Solostar U-100 Insulin 30 unit SUBCUT BID 10/18/18 04/16/19 History amlodipine 5 mg PO QPM 10/18/18 04/16/19 History chlorthalidone 25 mg PO QAM 10/18/18 04/16/19 History cholecalciferol (vitamin D3) 1,000 unit PO QAM 10/18/18 04/16/19 History [Vitamin D3] ferrous sulfate 325 mg PO BID 10/18/18 04/16/19 History gabapentin 200 mg PO QPM 10/18/18 04/16/19 History lisinopril 40 mg PO BID 10/18/18 04/16/19 History metformin 1,000 mg PO BID 10/18/18 04/16/19 History pramipexole [Mirapex] 0.5 mg PO QPM 10/18/18 04/16/19 History finasteride 5 mg PO QAM 12/02/18 04/16/19 History rivaroxaban [Xarelto] 20 mg PO DAILY 04/16/19 04/16/19 History Past Med/Surg History Medical History Multiple sclerosis (Chronic) DM type 2 (diabetes mellitus, type 2) (Chronic) Kidney stone (Chronic) CKD (chronic kidney disease), stage III (Chronic) Hypertension (Chronic) Hyperlipidemia (Chronic) GERD (gastroesophageal reflux disease) (Chronic) 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 Cataract Chronic kidney disease Stage III. follows w/ dr. 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 Galloway, has not had symptoms beyond muscle twitches since the early Osteoarthritis Thyroid nodule Surgical History S/P appendectomy (Chronic) History of carpal tunnel surgery (Chronic) S/P rotator cuff repair (Chronic) H/O arthroscopic knee surgery (Chronic) History of total right knee replacement (Chronic) History of appendectomy History of arthroscopy of left knee History of cardiac cath 15 years ago - CP led to cath - [place] - no stents/angioplasty, ruled indigestion - does not follow w/ cardio History of carpal tunnel release BL History of cystoscopy History of knee joint replacement x 2 rt knee History of repair of rotator cuff BL History of surgery LLE - hardware present History of tooth extraction Status post biopsy of thyroid gland benign Family History Daughter History of anesthesia reaction PONV Grandfather (Paternal) Family history of diabetes mellitus Mother Family history of diabetes mellitus Father Family history of diabetes mellitus Social History Preferred Language: Singaporean Communication Ability: Effective Frozen Pie Maker Required: No Beliefs That Will Affect Care: None marital status: Current Living Situation: Spouse current occupational status: retired Feels Safe at Home: Yes Smoking Status: Never smoker Tobacco Type: smokeless tobacco ; Second Hand Exposure: Yes ( SMOKES) ; Hx Alcohol Use: Yes Alcohol type: beer and wine Hx Substance Use: No Review of Systems Review of Systems: All systems reviewed & are unremarkable except as noted in HPI & below Physical Exam Constitutional: + ill appearing Eyes: PERRL, conjunctivae normal, anicteric sclerae EOM intact bilaterally ENMT: external ear and nose normal, oropharynx normal Neck: normal visual inspection Respiratory: normal respiratory effort, lungs clear to auscultation Cardiovascular: RRR, no murmur, no edema Gastrointestinal (Abdomen): normal bowel sounds, soft, nontender, no hepatosplenomegaly Musculoskeletal: Head/Neck/Chest: normocephalic and head atraumatic Neurologic: CN's II-XI intact bilaterally and awake Psychiatric: Orientation: alert, oriented to person, oriented to place, oriented to time and cooperative Results & Data Vital Signs (Past 12 Hours) Vital Signs Temp Pulse Pulse Resp BP BP Pulse Ox 04/16/19 18:00 62 20 152/88 H 99 04/16/19 16:00 36.6 C 96 H 16 121/75 94 Code Status & VTE Plan VTE Prophylaxis Plan VTE Prophylaxis will be ordered: Yes
[2019-04-16] MEDS ORDERED: SODIUM CHLORIDE 0.9% 1000ML 1,000 ML IV SCH (19:44)
--- NOTE | 2019-04-16 20:35 | Ultrasound Report ---
US venous doppler LE CLINICAL HISTORY: 68 years-old Male presenting with pain and swelling. TECHNIQUE: Real-time grayscale and color and spectral Doppler ultrasound imaging of the veins of the bilateral lower extremities was performed. Compression and augmentation were also utilized. COMPARISON: 11/03/2018. FINDINGS: RIGHT: Common femoral vein: Patent. Greater saphenous vein (superficial): Patent. Deep femoral vein: Patent. Femoral vein: Patent. Popliteal vein: Patent. Calf veins: Patent. LEFT: Common femoral vein: Patent. Greater saphenous vein (superficial): Patent. Deep femoral vein: Patent. Femoral vein: Patent. Popliteal vein: Patent. Calf veins: Patent. Other: None. IMPRESSION: No evidence of deep venous thrombosis. Electronically signed by: Shiraz Tineo M.D. 04/16/2019 8:34 PM
--- NOTE | 2019-04-16 20:59 | Pharmacy Report ---
Glycemic Control Consultation - Date of Service April 16, 2019 - Scope Scope: Glycemic Pharmacist consulted by Dr Montez on 04/16 for glycemic control and to write orders per [facility] inpatient glycemic control protocol - Objective Weight: 81.6 kg Accuchecks BSG (last 24hrs): 04/16/19 04/16/19 04/16/19 16:02 16:34 18:18 Glucose 721 H* POC Glucose > 600 H* 552 H* 04/16/19 19:01 Glucose POC Glucose 476 H* Laboratory Data (last 24hrs): 04/16/19 04/16/19 16:34 16:34 Potassium 4.7 Carbon Dioxide 21 Anion Gap 11.0 Creatinine 2.22 H Est Cr Clr Drug Dosing 30.9 Osmolality 322 H Beta-Hydroxybutyric Acd 2.75 - Recent Pertinent Medications Outpatient Anti-diabetic Regimen: * Lantus 30 units BID * Non-compliant for the last month d/t insurance issues * Metformin 1 gm BID * A1c = 7.8 % 12/03/18 The patient is currently receiving: * Insulin drip at 8 units/hr Risk Factors for Insulin Resistance: * Diet * Basal deficiency d/t non-compliance - Assessment & Plan Assessment & Plan: ASSESSMENT: * 68 y/o male admitted with [facility] d/t non-compliance with insulin for the past month. BSGs in the 700s upon arrival to the ED. An insulin drip has been initiated per [facility] protocol (0.1 unit/kg/hr) and a single dose of Lantus has been ordered to assist with transition back to tomorrow. PLAN FOR INPATIENT GLYCEMIC CONTROL: * Continue IV insulin infusion per severe stress protocol * Goal Range 250 - 350 mg/dl * In the critical care setting, continuous IV insulin infusion has been shown to be the best method for achieving glycemic targets. * Hold outpatient oral diabetes medications * A1c w/ AM labs to assess recent outpatient control * Please note that the plan above was derived based on current level of insulin resistance and hospital stress. These recommendations are appropriate for inpatient admission only. Plan of care upon discharge will need to be reassessed to avoid potential outpatient hypo/hyperglycemia. Thank you.
[2019-04-16] MEDS ORDERED: GABAPENTIN 100 MG CAP PO SCH (21:00)
[2019-04-16] MEDS ORDERED: INSULIN GLARGINE SOLOSTAR 100 UNITS/ML 3 ML PEN SC STA (21:00)
[2019-04-16] MEDS ORDERED: INSULIN ASPART 100 UNITS/ML 3 ML PEN SC SCH (21:00)
[2019-04-16 22:34] LABS: Albumin Globulin Ratio 0.9 (0.9-2); Albumin Level 3.9 gm/dl (3.4-5.0); BUN Creatinine Ratio 20.1 (10-20); Bilirubin,Total 0.3 mg/dl (0.2-1); Calcium 10.3 mg/dl (8.5-10.1); Creatinine Clr Calc Pharmacy 40.4 ml/min; Est GFR (African American) 46.3; Globulin 4.5 gm/dl (2.5-4.0); Potassium 3.3 mmol/L (3.5-5.1); Total Protein 8.4 gm/dl (6.4-8.2)
[2019-04-16] MEDS: AMLODIPINE BESYLATE 5 MG TAB PO SCH (22:41)
[2019-04-16] MEDS: PRAMIPEXOLE DIHYDROCHLO 0.25 MG TAB PO SCH (22:41)
[2019-04-16] MEDS: HEPARIN SOD 5,000 UNIT/0.5 ML VIAL SQ SCH (22:41)
--- NOTE | 2019-04-16 23:57 | Emergency Department Note ---
Entered by Deana Delgadillo acting as a scribe for Jose Palomino History of Present Illness General Chief complaint: Hyperglycemia Stated complaint: EXTREMELY HIGH SUGAR UNABLE TO READ Time Seen by Provider: 04/16/19 16:40 Source: patient History of Present Illness Provider complaint: Hyperglycemia Onset (ago): day(s) 1 Radiation: non-radiation Maximum Pain Intensity: 9 Relieved By: + none Exacerbated By: + none Associated symptoms: + denies other symptoms (Abdominal pain) and + other (Lightheaded, urinating less, falls asleep constantly); no chest pain and no fever/chills The patient is a 68 year old male who presents to the Emergency Room with complaints of hyperglycemia that worsened yesterday. The patient states that he has been without insulin since March 06 because he can not afford it but he took some of his wive's this morning. The patient reports that his symptoms do not radiate anywhere else on his body and are not exacerbated by anything. Additionally, his symptoms are not relieved by anything. The patient states that he feels very lightheaded, has been urinating less, and falls asleep often. The patient denies any abdominal pain, chest pain, or fever/chills. The patient notes his sugars have been around 500-580 and his insulin reading today said "danger." The patient reports a history of hypertension but denies any cardiac problems. Home Medications Home Medications Medication Instructions Recorded Confirmed Type Lantus Solostar U-100 Insulin 30 unit SUBCUT BID 10/18/18 04/16/19 History amlodipine 5 mg PO QPM 10/18/18 04/16/19 History chlorthalidone 25 mg PO QAM 10/18/18 04/16/19 History cholecalciferol (vitamin D3) 1,000 unit PO QAM 10/18/18 04/16/19 History [Vitamin D3] ferrous sulfate 325 mg PO BID 10/18/18 04/16/19 History gabapentin 200 mg PO QPM 10/18/18 04/16/19 History lisinopril 40 mg PO BID 10/18/18 04/16/19 History metformin 1,000 mg PO BID 10/18/18 04/16/19 History pramipexole [Mirapex] 0.5 mg PO QPM 10/18/18 04/16/19 History finasteride 5 mg PO QAM 12/02/18 04/16/19 History rivaroxaban [Xarelto] 20 mg PO DAILY 04/16/19 04/16/19 History Allergies Allergy/AdvReac Type Severity Reaction Status Date / Time morphine AdvReac Severe Vomiting Verified 04/16/19 17:04 rosuvastatin [From Crestor] AdvReac Intermediate Cramping Verified 04/16/19 17:04 of the Muscles Past Med/Surg History Medical History Multiple sclerosis (Chronic) DM type 2 (diabetes mellitus, type 2) (Chronic) Kidney stone (Chronic) CKD (chronic kidney disease), stage III (Chronic) Hypertension (Chronic) Hyperlipidemia (Chronic) GERD (gastroesophageal reflux disease) (Chronic) 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 Cataract Chronic kidney disease Stage III. follows w/ dr. 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 Galloway, has not had symptoms beyond muscle twitches since the early Osteoarthritis Thyroid nodule Surgical History S/P appendectomy (Chronic) History of carpal tunnel surgery (Chronic) S/P rotator cuff repair (Chronic) H/O arthroscopic knee surgery (Chronic) History of total right knee replacement (Chronic) History of appendectomy History of arthroscopy of left knee History of cardiac cath 15 years ago - CP led to cath - Tj - no stents/angioplasty, ruled indigestion - does not follow w/ cardio History of carpal tunnel release BL History of cystoscopy History of knee joint replacement x 2 rt knee History of repair of rotator cuff BL History of surgery LLE - hardware present History of tooth extraction Status post biopsy of thyroid gland benign Family History Daughter History of anesthesia reaction PONV Grandfather (Paternal) Family history of diabetes mellitus Mother Family history of diabetes mellitus Father Family history of diabetes mellitus Social History Preferred Language: Sammarinese Communication Ability: Effective 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 and A total of 10 systems reviewed and were otherwise negative Physical Exam Vital Signs Vital Signs - 24 hr 04/16/19 16:00 04/16/19 18:00 Temperature 36.6 C Temperature Source Oral Sepsis Recent Fever Within 48 Hours No Sepsis New/Unexplained Change in Mental Status No Sepsis Action Taken by Nursing No Action Required Pulse Rate 96 H Pulse Rate [Right Finger] 62 Respiratory Rate 16 20 Respiratory Effort / Characteristics Non-Labored Respiratory Depth Normal Blood Pressure 121/75 Blood Pressure [Right Arm] 152/88 H Blood Pressure Mean 90 Blood Pressure Mean [Right Arm] 109 Blood Pressure Position Sitting Pulse Oximetry 94 99 Oxygen Delivery Method Room Air GENERAL: He is oriented to person, place, and time. He appears well-developed and well-nourished. He does not appear distressed. HENT: Exam performed. - Head: Normocephalic and atraumatic. - Right Ear: External ear normal. No mastoid tenderness. - Left Ear: External ear normal. No mastoid tenderness. - Mouth/Throat: The oropharynx is clear and moist. No trismus in the jaw. No dental abscesses or uvula swelling. No oropharyngeal exudate or tonsillar ab scesses. EYES: Conjunctivae and EOM are normal. Pupils are equal, round, and reactive to light. Right eye exhibits no discharge. Left eye exhibits no discharge. No scleral icterus. NECK: Normal range of motion. Neck supple. No JVD present. No spinous process tenderness present. No carotid bruit present. No rigidity. No tracheal deviation and normal range of motion present. No Brudzinski's sign and no Kernig's sign noted. CV: Normal rate, regular rhythm, normal heart sounds and intact distal pulses. There is no peripheral edema. Palpable radial pulses bue. PULM/CHEST: Effort normal and breath sounds normal. No respiratory distress. No stridor. He has no wheezes. He has no rales. - Chest Wall: He exhibits no tenderness. ABD: The abdomen is soft. Bowel sounds are normal. He has no distension. No mass is present. There is no tenderness. There is no rebound, no guarding, no Alexandra's sign and no tenderness at McBurney's point. Rovsig negative. MUSC/SKEL: Normal range of motion. There is no peripheral edema, tenderness or deformity. LYMPH: No cervical adenopathy. NEURO: He is alert and oriented to person, place, and time. He has normal strength. No cranial nerve deficit or sensory deficit. Coordination and gait normal. GCS eye subscore is 4. GCS verbal subscore is 5. GCS motor subscore is 6. Cerebellar tests wnl. SKIN: Skin is warm and dry. He is not diaphoretic. PSYCH: He has a normal mood and affect. Behavior is normal. Judgment and thought content normal. Course 164: Past medical records reviewed. The patient was evaluated in room B11A. A complete history and physical exam was performed. 1757: Patient vital signs are stable and labs show a glucose of 721, sodium of 126, creatinine of 2.22, and serum osmolality of 322. Osmolar gap [(2 x 126) + (40/2.8) + (721/18)] shows osmolar gap greater than 10. Patient will be started on insulin drip units per hour HHS. 8 units/hr. he will be admitted to [facility] team. 180: I spoke with Jose R who works with Dr. Roger Montez. I discussed the idea of sending the patient to the ICU and she stated that she will discuss with her attending if he feels comfortable keeping the patient on the floor or sending him to the unit. Dr. Montez will follow up. 1830: See CT of the head within normal limits. Spoke with Dr. Montez and he does not believe the patient needs to go to the ICU. The patient was admitted to the PCU. Administered Medications Amlodipine Besylate (Norvasc) 5 mg PO QPM OJYCE Stop: 05/16/19 20:59 Last Admin: 04/16/19 22:41 Dose: 5 mg Documented by: [id number] Heparin Sodium (Porcine) (Heparin Sodium (Porcine)) 5,000 units SQ Q12 JOYCE Stop: 05/16/19 20:59 Last Admin: 04/16/19 22:41 Dose: 5,000 units Documented by: [id number] Cosigned by: [id number] Insulin Human Regular 250 (units/ Sodium Chloride) 250 mls @ 2 mls/hr IV .Q24H JOYCE; Protocol Stop: 05/16/19 17:59 Last Admin: 04/16/19 18:23 Dose: 8 units/hr, 8 mls/hr Documented by: [id number] Cosigned by: [id number] Pramipexole Dihydrochloride (Mirapex) 0.5 mg PO QPM JOYCE Stop: 05/16/19 20:59 Last Admin: 04/16/19 22:41 Dose: 0.5 mg Documented by: [id number] Discontinued Medications Sodium Chloride (Nss 1000ml) 1,000 mls @ 999 mls/hr IV .Q1H1M ONE Stop: 04/16/19 19:05 Last Infusion: 04/16/19 21:06 Dose: 0 mls/hr Documented by: [id number] Admin: 04/16/19 18:00 Dose: 999 mls/hr Documented by: [id number] Potassium Chloride 10 meq/ (Sodium Chloride) 1,005 mls @ 125 mls/hr IV .Q8H3M JOYCE Stop: 05/16/19 18:59 Last Admin: 04/16/19 21:45 Dose: Not Given Documented by: [id number] Sodium Chloride (Nss 1000ml) 1,000 mls @ 150 mls/hr IV .Q6H40M [facility] Stop: 05/16/19 19:43 Last Admin: 04/16/19 21:44 Dose: 150 mls/hr Documented by: [id number] Insulin Glargine (Lantus Solostar Pen) 30 units SC ONCE STA Stop: 04/16/19 21:01 Last Admin: 04/16/19 23:35 Dose: 30 units Documented by: [id number] Cosigned by: [id number] Medical Decision Making Medical Records Attestation: I reviewed the patient's medical records. Home Medications Current Medication List: was personally reviewed by me Laboratory Data Attestation: I reviewed the patient's lab results. Result diagrams: 04/16/19 16:34 04/16/19 22:00 Lab Results 04/16/19 04/16/19 04/16/19 Range/Units 16:02 16:34 16:34 WBC 6.10 (4.8-10.8) K/uL RBC 4.23 L (4.7-6.1) M/uL Hgb 13.1 L (14.0-18.0) g/dL Hct 37.6 L (42-52) % MCV 88.9 (80-100) fL MCH 31.0 (25-34) pg MCHC 34.8 (32-36) g/dL RDW Std Deviation 41.8 (36.4-46.3) fL RDW Coeff of Leo 13.0 (11.5-14.5) % Plt Count 233 (130-400) K/uL MPV 10.6 H (7.4-10.4) fL Immature Gran % (Auto) 0.5 % Neut % (Auto) 56.7 % Lymph % (Auto) 27.4 % [place] % (Auto) 7.4 % Eos % (Auto) 7.5 % Baso % (Auto) 0.5 % Immature Gran # (Auto) 0.03 H (0.00-0.02) K/uL Neut # (Auto) 3.46 (1.4-6.5) K/uL Lymph # (Auto) 1.67 (1.2-3.4) K/uL [place] # (Auto) 0.45 (0.11-0.59) K/uL Eos # (Auto) 0.46 (0-0.5) K/uL Baso # (Auto) 0.03 (0-0.2) K/uL PT (9.0-12.0) Seconds INR (0.9-1.1) APTT (21.0-31.0) Seconds PTT Ratio Sodium 126 L (136-145) mmol/L Potassium 4.7 (3.5-5.1) mmol/L Chloride 94 L (98-107) mmol/L Carbon Dioxide 21 (21-32) mmol/L Anion Gap 11.0 (3-11) BUN 40 H (7-18) mg/dl Creatinine 2.22 H (0.6-1.4) mg/dl Est Cr Clr Drug Dosing 30.9 ml/min Est GFR ( Amer) 33.8 Est GFR (Non-Af Amer) 29.2 BUN/Creatinine Ratio 18.1 (10-20) Glucose 721 H* (70-99) mg/dl POC Glucose > 600 H* (70-99) Osmolality (280-300) mOsm/kg Calcium 9.7 (8.5-10.1) mg/dl Total Bilirubin 0.3 (0.2-1) mg/dl AST 9 L (15-37) U/L ALT 21 (12-78) U/L Alkaline Phosphatase 83 (45-117) U/L Troponin I < 0.015 (0-0.045) ng/ml Total Protein 7.4 (6.4-8.2) gm/dl Albumin 3.4 (3.4-5.0) gm/dl Globulin 4.0 (2.5-4.0) gm/dl Albumin/Globulin Ratio 0.9 (0.9-2) Beta-Hydroxybutyric Acd 2.75 (0.2-2.81) mg/dl Specimen Hemolysis Urine Color Urine Appearance (Clear) Urine pH (4.5-7.5) Ur Specific [place] (1.000-1.030) Urine Protein (Negative) Urine Glucose (UA) (Negative) Urine Ketones (Negative) Urine Blood (Negative) Urine Nitrite (Negative) Urine Bilirubin (Negative) Urine Urobilinogen (Negative) Ur Leukocyte Esterase (Negative) 04/16/19 04/16/19 04/16/19 Range/Units 16:34 16:34 16:45 WBC (4.8-10.8) K/uL RBC (4.7-6.1) M/uL Hgb (14.0-18.0) g/dL Hct (42-52) % MCV (80-100) fL MCH (25-34) pg MCHC (32-36) g/dL RDW Std Deviation (36.4-46.3) fL RDW Coeff of Leo (11.5-14.5) % Plt Count (130-400) K/uL MPV (7.4-10.4) fL Immature Gran % (Auto) % Neut % (Auto) % Lymph % (Auto) % [place] % (Auto) % Eos % (Auto) % Baso % (Auto) % Immature Gran # (Auto) (0.00-0.02) K/uL Neut # (Auto) (1.4-6.5) K/uL Lymph # (Auto) (1.2-3.4) K/uL [place] # (Auto) (0.11-0.59) K/uL Eos # (Auto) (0-0.5) K/uL Baso # (Auto) (0-0.2) K/uL PT 9.5 (9.0-12.0) Seconds INR 0.9 (0.9-1.1) APTT 23.4 (21.0-31.0) Seconds PTT Ratio 0.9 Sodium (136-145) mmol/L Potassium (3.5-5.1) mmol/L Chloride (98-107) mmol/L Carbon Dioxide (21-32) mmol/L Anion Gap (3-11) BUN (7-18) mg/dl Creatinine (0.6-1.4) mg/dl Est Cr Clr Drug Dosing ml/min Est GFR ( Amer) Est GFR (Non-Af Amer) BUN/Creatinine Ratio (10-20) Glucose (70-99) mg/dl POC Glucose (70-99) Osmolality 322 H (280-300) mOsm/kg Calcium (8.5-10.1) mg/dl Total Bilirubin (0.2-1) mg/dl AST (15-37) U/L ALT (12-78) U/L Alkaline Phosphatase (45-117) U/L Troponin I (0-0.045) ng/ml Total Protein (6.4-8.2) gm/dl Albumin (3.4-5.0) gm/dl Globulin (2.5-4.0) gm/dl Albumin/Globulin Ratio (0.9-2) Beta-Hydroxybutyric Acd (0.2-2.81) mg/dl Specimen Hemolysis Urine Color Yellow Urine Appearance Clear (Clear) Urine pH 5.0 (4.5-7.5) Ur Specific [place] 1.029 (1.000-1.030) Urine Protein Negative (Negative) Urine Glucose (UA) 3+ H (Negative) Urine Ketones Negative (Negative) Urine Blood Negative (Negative) Urine Nitrite Negative (Negative) Urine Bilirubin Negative (Negative) Urine Urobilinogen Negative (Negative) Ur Leukocyte Esterase Negative (Negative) 04/16/19 Range/Units 18:18 WBC (4.8-10.8) K/uL RBC (4.7-6.1) M/uL Hgb (14.0-18.0) g/dL Hct (42-52) % MCV (80-100) fL MCH (25-34) pg MCHC (32-36) g/dL RDW Std Deviation (36.4-46.3) fL RDW Coeff of Leo (11.5-14.5) % Plt Count (130-400) K/uL MPV (7.4-10.4) fL Immature Gran % (Auto) % Neut % (Auto) % Lymph % (Auto) % [place] % (Auto) % Eos % (Auto) % Baso % (Auto) % Immature Gran # (Auto) (0.00-0.02) K/uL Neut # (Auto) (1.4-6.5) K/uL Lymph # (Auto) (1.2-3.4) K/uL [place] # (Auto) (0.11-0.59) K/uL Eos # (Auto) (0-0.5) K/uL Baso # (Auto) (0-0.2) K/uL PT (9.0-12.0) Seconds INR (0.9-1.1) APTT (21.0-31.0) Seconds PTT Ratio Sodium (136-145) mmol/L Potassium (3.5-5.1) mmol/L Chloride (98-107) mmol/L Carbon Dioxide (21-32) mmol/L Anion Gap (3-11) BUN (7-18) mg/dl Creatinine (0.6-1.4) mg/dl Est Cr Clr Drug Dosing ml/min Est GFR ( Amer) Est GFR (Non-Af Amer) BUN/Creatinine Ratio (10-20) Glucose (70-99) mg/dl POC Glucose 552 H* (70-99) Osmolality (280-300) mOsm/kg Calcium (8.5-10.1) mg/dl Total Bilirubin (0.2-1) mg/dl AST (15-37) U/L ALT (12-78) U/L Alkaline Phosphatase (45-117) U/L Troponin I (0-0.045) ng/ml Total Protein (6.4-8.2) gm/dl Albumin (3.4-5.0) gm/dl Globulin (2.5-4.0) gm/dl Albumin/Globulin Ratio (0.9-2) Beta-Hydroxybutyric Acd (0.2-2.81) mg/dl Specimen Hemolysis Urine Color Urine Appearance (Clear) Urine pH (4.5-7.5) Ur Specific [place] (1.000-1.030) Urine Protein (Negative) Urine Glucose (UA) (Negative) Urine Ketones (Negative) Urine Blood (Negative) Urine Nitrite (Negative) Urine Bilirubin (Negative) Urine Urobilinogen (Negative) Ur Leukocyte Esterase (Negative) Imaging Data Radiologist's Impression: Radiology results as stated below per my review and the radiologist's interpretation: CT head/brain wo con CLINICAL HISTORY: 68 years-old Male presenting with recurrent falls, uncontrolled diabetes. TECHNIQUE: Multidetector CT imaging of the head was performed without the use of intravenous contrast. IV contrast: None. One or more dose lowering techniques were used consistent with the principles of ALARA (as low as reasonably achievable), including automatic exposure control, mA or kV adjustment to individual patient size, and/or use of iterative reconstruction. COMPARISON: Brain MR from 2018. CT DOSE (mGy.cm): The estimated cumulative dose is 773.57 mGy.cm. FINDINGS: Principal Security Architect topogram: Unremarkable. Ventricles and sulci normal in size. No hemorrhage. Brain parenchyma normal in appearance with preserved bahena-white differentiation. No acute territorial infarct. No mass effect or midline shift. No extra-axial fluid collection. Paranasal sinuses and mastoid air cells clear. Calvarium intact. IMPRESSION: 1. No acute intracranial abnormality. Electronically signed by: Shiraz Tineo M.D. 04/16/2019 6:03 PM ECG Data Attestation: I personally reviewed and interpreted this ECG as follows: Indication: other (Hyperglycemia) Rate (beats per minute): 81 Rhythm: normal sinus Findings: + other (WV, QRS, and QTC normal ); no ST depression and no ST elevation Blood Pressure Blood Pressure Findings: Elevated blood pressure Blood Pressure Disposition: further management by hospitalist ADDIS Guerin [id number]: Past medical records reviewed. The patient was evaluated in room B11A. A complete history and physical exam was performed. 1757: Patient vital signs are stable and labs show a glucose of 721, sodium of 126, creatinine of 2.22, and serum osmolality of 322. Osmolar gap [(2 x 126) + (40/2.8) + (721/18)] shows osmolar gap greater than 10. Patient will be started on insulin drip units per hour HHS. 8 units/hr. he will be admitted to [facility] team. 180: I spoke with Jose R who works with Dr. Roger Montez. I discussed the idea of sending the patient to the ICU and she stated that she will discuss with her attending if he feels comfortable keeping the patient on the floor or sending him to the unit. Dr. Montez will follow up. 1829: See CT of the head within normal limits. Spoke with Dr. Montez and he does not believe the patient needs to go to the ICU. The patient was admitted to the PCU. Impression & Plan HHS (hypothenar hammer syndrome) Critical Care Time Critical Care Time: Yes Total Critical Care Time: 69 I have personally spent 69 minutes of critical care time in the direct management of this patient. This includes bedside care, interpretation of diagnostic studies, and testing, discussion with consultants, patient, and family members, and other required patient management activities. This 69 minutes is in excess of all separately billable procedures. Discharge Plan Visit Data *Final* Discharge Date/Time: 04/16/19 19:57 Chief Complaint: Hyperglycemia Stated Complaint: EXTREMELY HIGH SUGAR UNABLE TO READ ED Provider: Jose Palomino Discharge Problem: HHS (hypothenar hammer syndrome) Patient Disposition: Admitted As Inpatient Discharge Instructions Interventions: ED Discharge Assessment Last Done: 04/16/19 19:57 The scribe's documentation has been prepared under my direction and personally r eviewed by me in its entirety. I confirm that the note above accurately reflects all work, treatment, procedures, and medical decision making performed by me.
[2019-04-17] MEDS: POTASSIUM CHLORIDE 10 MEQ in SODIUM CHLORIDE 0.9% 1000ML 1,000 ML IV SCH ×2 (00:11→12:12)
[2019-04-17 01:42] LABS: Basophils # (auto) 0.03 K/uL (0-0.2); Basophils % (auto) 0.5 %; Eosinophils # (auto) 0.52 K/uL (0-0.5); Hematocrit (blood only) 34.7 % (42-52); Hemoglobin 12.1 g/dL (14.0-18.0); Immature Granulocytes # (auto) 0.03 K/uL (0.00-0.02); Immature Granulocytes % (auto) 0.5 %; Lymphocytes # (auto) 2.32 K/uL (1.2-3.4); Lymphocytes % (auto) 35.5 %; Mean Corpuscular Hemoglobin 30.4 pg (25-34); Mean Corpuscular Hgb Conc 34.9 g/dL (32-36); Mean Corpuscular Volume 87.2 fL (80-100); Mean Platelet Volume 9.9 fL (7.4-10.4); Monocytes # (auto) 0.61 K/uL (0.11-0.59); Monocytes % (auto) 9.3 %; Neutrophils # (auto) 3.02 K/uL (1.4-6.5); Neutrophils % (auto) 46.2 %; Platelet Count 207 K/uL (130-400); RDW Coefficient of Variation 12.7 % (11.5-14.5); RDW Standard Deviation 40.9 fL (36.4-46.3); Red Blood Count 3.98 M/uL (4.7-6.1); White Blood Count 6.53 K/uL (4.8-10.8)
[2019-04-17 03:16] LABS: BUN Creatinine Ratio 20.6 (10-20); Calcium 8.9 mg/dl (8.5-10.1); Creatinine Clr Calc Pharmacy 46.3 ml/min; Est GFR (African American) 54.7; Est GFR (Non-African American) 47.2; Potassium 3.4 mmol/L (3.5-5.1)
[2019-04-17 03:43] LABS: Albumin Globulin Ratio 0.8 (0.9-2); Bilirubin,Total 0.3 mg/dl (0.2-1); Globulin 3.6 gm/dl (2.5-4.0); Total Protein 6.6 gm/dl (6.4-8.2)
[2019-04-17 06:15] LABS: Estimated Average Glucose 369 mg/dl; Hemoglobin A1C 14.5 % (4.5-5.6)
[2019-04-17 06:41] LABS: Albumin Level 3.1 gm/dl (3.4-5.0); BUN Creatinine Ratio 18.8 (10-20); Calcium 8.9 mg/dl (8.5-10.1); Creatinine Clr Calc Pharmacy 43.9 ml/min; Est GFR (African American) 51.8; Est GFR (Non-African American) 44.7; Potassium 3.4 mmol/L (3.5-5.1)
[2019-04-17 06:44] LABS: Albumin Globulin Ratio 0.9 (0.9-2); Bilirubin,Total 0.4 mg/dl (0.2-1); Globulin 3.6 gm/dl (2.5-4.0); Total Protein 6.7 gm/dl (6.4-8.2)
[2019-04-17] MEDS: FINASTERIDE 5 MG TAB PO SCH (07:54)
[2019-04-17] MEDS: FERROUS SULFATE 325 MG TAB PO SCH ×2 (07:54→17:03)
[2019-04-17] MEDS: CHOLECALCIFEROL 1,000 UNITS TAB PO SCH (07:55)
[2019-04-17] MEDS ORDERED: INFLUENZA VIRUS QUAD VACCINE 0.5 ML SYR IM ONE (08:00)
[2019-04-17] MEDS ORDERED: INFLUENZA ADMINISTRATION CHARGE ONE (08:00)
[2019-04-17] MEDS ORDERED: INSULIN GLARGINE SOLOSTAR 100 UNITS/ML 3 ML PEN SC SCH (08:10)
[2019-04-17] MEDS: INSULIN ASPART 100 UNITS/ML 3 ML PEN SC SCH ×4 (08:25→21:18)
[2019-04-17] MEDS: HEPARIN SOD 5,000 UNIT/0.5 ML VIAL SQ SCH (08:26)
[2019-04-17] MEDS ORDERED: CHLORTHALIDONE 25 MG TAB PO SCH (09:00)
[2019-04-17] MEDS ORDERED: RIVAROXABAN 20 MG TAB PO SCH (09:00)
[2019-04-17] MEDS ORDERED: POTASSIUM CHLORIDE 20 MEQ TABCR PO SCH (09:30)
--- NOTE | 2019-04-17 12:06 | Pharmacy Report ---
Pharmacy Glycemic Short Note 2 - Date of Service April 17, 2019 - Glycemic Short BSG Results (Last 24 hours): 04/16/19 04/16/19 04/16/19 16:02 16:34 18:18 Glucose 721 H* POC Glucose > 600 H* 552 H* 04/16/19 04/16/19 04/16/19 19:01 20:49 22:00 Glucose 93 POC Glucose 476 H* 213 H 04/16/19 04/16/19 04/16/19 22:05 22:33 23:34 Glucose POC Glucose 120 H 97 129 H 04/17/19 04/17/19 04/17/19 00:34 01:32 04:09 Glucose 124 H POC Glucose 125 H 135 H 04/17/19 04/17/19 04/17/19 05:48 05:57 07:21 Glucose 141 H POC Glucose 144 H 143 H Outpatient Anti-diabetic Regimen: * Lantus 30 units BID * Non-compliant for the last month d/t insurance issues * Metformin 1 gm BID * A1c = 7.8 % 12/03/18 * 14.5% 04/17/19 -- likely skewed by assumed hyperglycemia for the past month while not using insulin ASSESSMENT: 04/17/19: * Insulin drip was held per parameters overnight and did not require re-start. * Lantus dose initiated first thing this morning, as well as Novolog. * SCr 2.22-->1.56 * Patient's diet was advanced from clear liquids to a diabetic diet this morning. 04/16/19 * 68 y/o male admitted with [facility] d/t non-compliance with insulin for the past month. BSGs in the 700s upon arrival to the ED. An insulin drip has been initiated per [facility] protocol (0.1 unit/kg/hr) and a single dose of Lantus has been ordered to assist with transition back to tomorrow. PLAN FOR INPATIENT GLYCEMIC CONTROL: * Hold outpatient oral diabetes medications * Basal insulin * Lantus 30 units SQ this morning, then 20 units SQ BID * Bolus insulin * NovoLog per scale ACHS or Q6hrs while NPO * Goal Range: Low 110 mg/dL - High 150 mg/dL * Correction Factor: 20 mg/dL/unit * Nutritional / Prandial insulin per carb ratio of 1 unit per 7 grams CHO consumed PLAN FOR DISCHARGE: * Current A1c (14.5%) indicates severely poorly managed glycemic control. * This is not totally unexpected d/t patient's not using insulin for the past month. * Recommend CDE consult during admission to help ensure that patient has a regimen that he can afford post-discharge. * Patient will require additional monitoring and follow-up after discharge to ensure that A1c is resolving. * Please note that the plan above was derived based on current level of insulin resistance and hospital stress. These recommendations are appropriate for inpatient admission only. Plan of care upon discharge will need to be reassessed to avoid potential outpatient hypo/hyperglycemia. Thank you.
--- NOTE | 2019-04-17 13:14 | Hospitalist Progress Note ---
Date of Service April 17, 2019 Assessment & Plan (1) Hyperosmolar non-ketotic state in patient with type 2 diabetes mellitus: Hyperglycemia resolved overnight after insulin drip. Dehydration improved after IV fluid administration. Chlorthalidone and lisinopril were held on admission. Appreciate pharmacy assistance with glycemic management. Diet was advanced. Transfer off telemetry. Monitor for 1 more day and expect home tomorrow. (2) HTN (hypertension): Continue amlodipine 5 mg daily, hold lisinopril and chlorthalidone in setting of acute kidney injury. Blood pressures are remaining at goal. (3) TOMÁS (acute kidney injury): Acute on chronic stage III CKD. Improved with IV fluids overnight. Continue holding chlorthalidone and lisinopril at this time. Trend BMP in a.m. (4) Multiple sclerosis: (5) DVT prophylaxis: Heparin subcu change back to Xarelto DNR/DNI Disposition-expect to home after glucose is stabilized on reestablished insulin therapy. Fani Haynes DO [facility] Hospitalist Subjective 68-year-old insulin-dependent diabetic presented with hyperglycemia and HH K secondary to noncompliance with insulin secondary to financial constraints. He reports having some group coupon that he is now able to use to purchase his Lantus Lantus and therefore not needing to switch to cheaper insulin at this time. He reports feeling significantly better than yesterday. Symptoms prior to arrival included polyuria secondary to dehydration which is improved. He is tolerating p.o. this morning. He denies any other infectious symptoms such as fevers, chills, cough, urinary tract infection symptoms. Review of Systems Review of Systems: All systems reviewed & are unremarkable except as noted in HPI & below Physical Exam Physical Exam: CONSTITUTIONAL: WNWD, vitals as above, generally well- appearing EYES: normal conjunctivae, no scleral icterus ENT: MMM RESPIRATORY: clear to auscultation bilaterally, no crackles, rales or wheezes, normal respiratory effort CARDIOVASCULAR: regular rate and rhythm, S1 and 2 heard without murmurs, gallops or rubs, no JVD, no peripheral edema GASTROINTESTINAL: normal bowel sounds, soft, nontender, nondistended MUSCULOSKELETAL: strength 5/5 throughout, head is normocephalic and atraumatic SKIN: warm and dry NEUROLOGIC: CN 2-12 grossly intact, normal cognition, no gross focal deficits. PSYCHIATRIC: alert cooperative and oriented to person, place and time. Results & Data Vital Signs (Past 12 Hours) Vital Signs Temp Pulse Resp BP Pulse Ox 04/17/19 11:29 36.4 C L 79 18 118/68 99 04/17/19 07:18 36.5 C 67 17 116/72 94 04/17/19 03:45 36.6 C 65 16 103/66 96 Laboratory Results Short CBC 04/16/19 04/17/19 Range/Units 16:34 01:32 WBC 6.10 6.53 (4.8-10.8) K/uL Hgb 13.1 L 12.1 L (14.0-18.0) g/dL Hct 37.6 L 34.7 L (42-52) % Plt Count 233 207 (130-400) K/uL BMP 04/16/19 04/16/19 04/17/19 16:34 22:00 01:32 Sodium 126 L 137 D 139 Potassium 4.7 3.3 L D 3.4 L Chloride 94 L 103 105 Carbon Dioxide 21 26 26 BUN 40 H 34 H 31 H Creatinine 2.22 H 1.71 H D 1.49 H Glucose 721 H* 93 124 H Calcium 9.7 10.3 H 8.9 04/17/19 05:57 Sodium 139 Potassium 3.4 L Chloride 105 Carbon Dioxide 27 BUN 29 H Creatinine 1.56 H Glucose 141 H Calcium 8.9 Cardiac Enzymes 04/16/19 Range/Units 16:34 Troponin I < 0.015 (0-0.045) ng/ml Liver Function 04/16/19 04/16/19 04/17/19 Range/Units 16:34 22:00 01:32 Total Bilirubin 0.3 0.3 0.3 (0.2-1) mg/dl AST 9 L 9 L 12 L (15-37) U/L ALT 21 20 17 (12-78) U/L Alkaline Phosphatase 83 88 65 (45-117) U/L Albumin 3.4 3.9 3.0 L (3.4-5.0) gm/dl 04/17/19 Range/Units 05:57 Total Bilirubin 0.4 (0.2-1) mg/dl AST 11 L (15-37) U/L ALT 17 (12-78) U/L Alkaline Phosphatase 66 (45-117) U/L Albumin 3.1 L (3.4-5.0) gm/dl Urine 04/16/19 Range/Units 16:45 Urine Color Yellow Urine Appearance Clear (Clear) Urine pH 5.0 (4.5-7.5) Ur Specific [place] 1.029 (1.000-1.030) Urine Protein Negative (Negative) Urine Glucose (UA) 3+ H (Negative) Medications Administered Current Inpatient Medications Amlodipine Besylate (Norvasc) 5 mg PO QPM [facility] Stop: 05/16/19 20:59 Last Admin: 04/16/19 22:41 Dose: 5 mg Documented by: Dextrose (Dextrose 50%) 25 - 50 ml IV UD PRN; Protocol PRN Reason: Hypoglycemia Protocol Stop: 05/16/19 18:42 Ferrous Sulfate (Feosol) 325 mg PO BIDM [facility] Stop: 05/17/19 07:59 Last Admin: 04/17/19 07:54 Dose: 325 mg Documented by: Finasteride (Proscar) 5 mg PO QAM [facility] Stop: 05/17/19 08:59 Last Admin: 04/17/19 07:54 Dose: 5 mg Documented by: Glucagon (Glucagen) 1 mg SQ UD PRN; Protocol PRN Reason: Hypoglycemia Protocol Stop: 05/16/19 18:42 Glucose (Glucose 40%) 15 - 30 gm PO UD PRN; Protocol PRN Reason: Hypoglycemia Protocol Stop: 05/16/19 18:42 Glucose (Dex4 Glucose) 4 - 8 tabs PO UD PRN; Protocol PRN Reason: Hypoglycemia Protocol Stop: 05/16/19 18:42 Heparin Sodium (Porcine) (Heparin Sodium (Porcine)) 5,000 units SQ Q12 [facility] Stop: 05/16/19 20:59 Last Admin: 04/17/19 08:26 Dose: 5,000 units Documented by: Potassium Chloride 10 meq/ (Sodium Chloride) 1,005 mls @ 80 mls/hr IV .[id number] [facility] Stop: 05/16/19 23:14 Last Admin: 04/17/19 12:12 Dose: 80 mls/hr Documented by: Insulin Aspart (Novolog Flexpen) 0 units SC ACHS [facility]; Protocol Stop: 05/17/19 07:29 Last Admin: 04/17/19 11:51 Dose: 7 units Documented by: Insulin Glargine (Lantus Solostar Pen) 30 units SC BID [facility]; Protocol Stop: 05/17/19 08:09 Last Admin: 04/17/19 08:25 Dose: 30 units Documented by: Miscellaneous (Carbohydrates For Hypoglycemia) 15 - 30 gm PO UD PRN PRN Reason: Hypoglycemia Treatment Stop: 05/16/19 18:42 Miscellaneous Information (Consult Glycemic Management Pharmacy) 1 ea N/A UD PRN PRN Reason: Consult Stop: 05/16/19 18:26 Pramipexole Dihydrochloride (Mirapex) 0.5 mg PO QPM [facility] Stop: 05/16/19 20:59 Last Admin: 04/16/19 22:41 Dose: 0.5 mg Documented by: Vitamin D (Vitamin D3) 1,000 units PO QAM [facility] Stop: 05/17/19 08:59 Last Admin: 04/17/19 07:55 Dose: 1,000 units Documented by:
[2019-04-17] MEDS: INSULIN GLARGINE SOLOSTAR 100 UNITS/ML 3 ML PEN SC SCH (21:16)
[2019-04-17] MEDS: AMLODIPINE BESYLATE 5 MG TAB PO SCH (21:17)
[2019-04-17] MEDS: PRAMIPEXOLE DIHYDROCHLO 0.25 MG TAB PO SCH (21:18)
[2019-04-18] MEDS: INSULIN ASPART 100 UNITS/ML 3 ML PEN SC SCH ×4 (00:58→12:49)
[2019-04-18 07:07] LABS: BUN Creatinine Ratio 17.5 (10-20); Calcium 8.5 mg/dl (8.5-10.1); Creatinine Clr Calc Pharmacy 41.2 ml/min; Est GFR (Non-African American) 41.4; Potassium 3.8 mmol/L (3.5-5.1)
[2019-04-18 07:08] LABS: Hematocrit (blood only) 37.1 % (42-52); Hemoglobin 12.7 g/dL (14.0-18.0); Mean Corpuscular Hemoglobin 30.6 pg (25-34); Mean Corpuscular Hgb Conc 34.2 g/dL (32-36); Mean Corpuscular Volume 89.4 fL (80-100); Mean Platelet Volume 10.5 fL (7.4-10.4); Platelet Count 220 K/uL (130-400); RDW Standard Deviation 41.9 fL (36.4-46.3); Red Blood Count 4.15 M/uL (4.7-6.1); White Blood Count 6.51 K/uL (4.8-10.8)
[2019-04-18] MEDS: FERROUS SULFATE 325 MG TAB PO SCH (08:43)
[2019-04-18] MEDS: FINASTERIDE 5 MG TAB PO SCH (08:43)
[2019-04-18] MEDS: CHOLECALCIFEROL 1,000 UNITS TAB PO SCH (08:44)
[2019-04-18] MEDS: INSULIN GLARGINE SOLOSTAR 100 UNITS/ML 3 ML PEN SC SCH (08:44)
[2019-04-18] MEDS ORDERED: RIVAROXABAN 20 MG TAB PO SCH (09:00)
--- NOTE | 2019-04-18 14:15 | Discharge Summary ---
Date of Service April 18, 2019 Admission HPI Per Admitting Provider This is a 68 year old male with PMH of Diabetes Mellitus Type 2 on Insulin (but has been off insulin x 1 month), Hypertension, Chronic Kidney Disease stage III, history of deep vein thrombosis in 2016 and chronically is anticoagulated on Xarelto who presents to the hospital with generalized weakness secondary to being off home dose insulin of Lantus 30 units BID for 1 month because of problems with affording the medications and found to be hyperglycemic to over 700. Patient was seen and evaluated in the ED who ordered IV fluids and started patient on insulin drip. Patient seen and examined at bedside. He appeared lethargic but able to give history which is corroborated by his and cooperative on physical exam. Patient and reports they were having trouble with insurance coverage over the insulin, off insulin in the last 30 days, and they actually were able to get the insulin supply today but patient feeling unwell and came to the emergency room and did not take the insulin at home On review of systems, he feels tired. patient denies symptoms of chest pain, palpitations, shortness of breath, abdominal pain, fevers. no dizziness .denies blood in urine and denies blood in stool Admission Exam Per Admitting Provider Constitutional: + ill appearing Eyes: PERRL, conjunctivae normal, anicteric sclerae EOM intact bilaterally ENMT: external ear and nose normal, oropharynx normal Neck: normal visual inspection Respiratory: normal respiratory effort, lungs clear to auscultation Cardiovascular: RRR, no murmur, no edema Gastrointestinal (Abdomen): normal bowel sounds, soft, nontender, no hepatosplenomegaly Musculoskeletal: Head/Neck/Chest: normocephalic and head atraumatic Neurologic: CN's II-XI intact bilaterally and awake Psychiatric: Orientation: alert, oriented to person, oriented to place, oriented to time and cooperative Principal Diagnosis DIABETIC HYPERGLYCEMIC HYPEROSMOLAR SYNDROME TOMÁS Discharge Data Allergies Allergy/AdvReac Type Severity Reaction Status Date / Time morphine AdvReac Severe Vomiting Verified 04/16/19 17:04 rosuvastatin [From Crestor] AdvReac Intermediate Cramping Verified 04/16/19 17:04 of the Muscles Consultations 04/16/19 18:05 ED Decision to Admit Stat 04/16/19 18:46 Consult Case Management - Discharge Planning Routine Ordered Studies 09/25/19 16:51 CT head/brain wo con Stat 04/16/19 19:01 US venous doppler LE Stat Hospital Course (1) Hyperosmolar non-ketotic state in patient with type 2 diabetes mellitus: (2) HTN (hypertension): (3) TOMÁS (acute kidney injury): (4) Multiple sclerosis: 68-year-old diabetic man presented to the ER with hyperglycemia secondary to noncompliance with insulin for financial reasons. He was found to be in a hyperosmolar hyperglycemic state and was started on an insulin drip which continued overnight. Lab work revealed acute kidney injury with a creatinine around 2.2 and a baseline of 1.5 likely secondary to dehydration. Lisinopril and chlorthalidone were held as a result. IV fluids were continued. The following morning glucose was more to goal and creatinine improved back to baseline. He stayed an additional day to ensure that as he began to reintroduce food he was maintaining appropriate blood glucose on insulin therapy. After discussion about switching insulin based on costs, he reports that he has a drug coupon that will allow him to obtain his Lantus at a more affordable cost. Hemoglobin A1c was checked and was 14.5. Consideration could be given to using basal bolus insulin instead of just basal insulin plus metformin at this level A1c. At time of discharge creatinine had bumped up to 1.6, and metformin was temporarily held until this improved. This is an additional reason to consider bolus insulin in lieu of metformin at this time. For the same reason chlorthalidone and lisinopril were held, until further blood work could be performed as outpatient following week and close primary care follow-up occurred. At time of discharge a [id number] examination was performed revealing hemodynamically stable and afebrile patient in no acute distress. He was oxygenating on room air and mentating and ambulating at baseline. He was tolerating p.o. Physical exam revealed clear lungs to auscultation bilaterally with no crackles, rales or wheezes and normal respiratory effort. Cardiovascular exam revealed a regular rate and rhythm heard an S1 and S2 heard without murmurs, gallops or rubs. No JVD was noted and no peripheral edema was noted. Abdomen was soft and nontender and nondistended. Strength was 5 out of 5 throughout skin was warm and dry. He had no gross focal neurologic deficits and was alert and cooperative and oriented to person place and time. He was discharged in stable condition with close primary care follow-up recommended. Total Time Total Time Spent Total Time Spent (In Minutes): 60 Total Time Includes: Examination of the Patient, Discharge Planning, Medication Reconciliation and Communication With Other Providers Discharge Plan Discharge Items Patient Disposition: Home - Self-Care Reason For Visit: DIABETIC HYPERGLYCEMIC HYPEROSMOLAR SYNDROME Discharge Diagnosis: DIABETIC HYPERGLYCEMIC HYPEROSMOLAR SYNDROME TOMÁS Condition on Discharge: Good Goals: A1C<7 within 3 months Activity: Resume your previous activity Non-emergency contact: Primary Care Provider Call non-emergency contact if: you have any medication questions, your symptoms worsen, your pain is not controlled, your pain is worsening, your pain is unusual for you, your pain is concerning for you and you have a fever Follow-up/Referrals: Nacho Chen MD [Primary Care Provider] - Diet: Carb Consistent or DM2 and Low Sodium (2gm) Addtl Attending Provider Instructions: Please take all medications as instructed on discharge list below. You have been given a prescription to obtain nonfasting labwork early next week sometime. You will need to followup with your primary care physician (PCP) for these results. During this time, you will not be on two of your three blood pressure medications, and these results will dictate when you can restart these again. You will also need to hold off taking any metformin until after your labwork is reviewed by your PCP at followup. It is OK to continue the insulin and glipizide in the meantime. You have a follow-up appointment with your PCP as follows: 04/23/2019 2:00 PM Nacho Chen III, MD [facility] It was a pleasure taking care of you! Please call if you have any questions or problems. You can reach a [facility] hospitalist on duty at [facility] 24 hours a day by calling [phone]. Take care of yourself. Fani Haynes DO [facility] Hospitalist Pending Studies at Discharge: No Stand-Alone Forms: [facility] Medications and DC Order Prescriptions: Continued amlodipine 10 mg Tablet 5 mg PO QPM RF: 0 ferrous sulfate 325 mg (65 mg iron) Tablet 325 mg PO BID RF: 0 pramipexole [Mirapex] 0.25 mg Tablet 0.5 mg PO QPM RF: 0 gabapentin 100 mg Capsule 200 mg PO QPM RF: 0 cholecalciferol (vitamin D3) [Vitamin D3] 1,000 unit Capsule 1,000 unit PO QAM RF: 0 Lantus Solostar U-100 Insulin 100 unit/mL (3 mL) Insulin Pen 30 unit SUBCUT BID RF: 0 finasteride 5 mg tablet 5 mg PO QAM RF: 0 Xarelto 20 mg tablet 20 mg PO DAILY RF: 0 Discontinued chlorthalidone 25 mg Tablet 25 mg PO QAM RF: 0 metformin 1,000 mg Tablet 1,000 mg PO BID RF: 0 lisinopril 40 mg Tablet 40 mg PO BID RF: 0 Discharge Orders: Discharge Order (Routine); Ordered 04/18/19 Ordered By: Fani Haynes Admission Data Admit Date/Time: 04/16/19 18:47 Attending Provider: Fani Haynes Admit Provider: Roger Montez Primary Care Provider: Nacho Chen Other Interventions: Discharge Summary Assessment (RN) Last Done: 04/18/19 15:00 DC Date/Time DO NOT enter until pt leaves facility: 04/18/19 15:30
== END 2019-04-18 15:30 | disposition home or self-care (01) | DRG 638 ==
LOC: ED 15:54 → 2S 18:47 → SUATTDRO 18:47 → 2S 19:57 → 4W 04-17 13:08
DX: I12.9 Hypertensive chronic kidney disease with stage 1 through stage 4 chronic kidney disease, or unspecified chronic kidney disease; N18.3 Chronic kidney disease, stage 3 (moderate); Z91.120 Patient's intentional underdosing of medication regimen due to financial hardship; E11.22 Type 2 diabetes mellitus with diabetic chronic kidney disease; Z79.899 Other long term (current) drug therapy; Z79.4 Long term (current) use of insulin; N17.9 Acute kidney failure, unspecified; Z66 Do not resuscitate; Z86.718 Personal history of other venous thrombosis and embolism; E11.00 Type 2 diabetes mellitus with hyperosmolarity without nonketotic hyperglycemic-hyperosmolar coma (NKHHC); Z79.01 Long term (current) use of anticoagulants

== ENCOUNTER 2020-03-30 18:56 | Inpatient (IN) ==
[2020-03-30 20:14] LABS: Basophils # (auto) 0.02 K/uL (0-0.2); Basophils % (auto) 0.2 %; Eosinophils # (auto) 0.88 K/uL (0-0.5); Eosinophils % (auto) 9.4 %; Hemoglobin 12.2 g/dL (14.0-18.0); Immature Granulocytes # (auto) 0.03 K/uL (0.00-0.02); Immature Granulocytes % (auto) 0.3 %; Lymphocytes # (auto) 1.66 K/uL (1.2-3.4); Lymphocytes % (auto) 17.8 %; Mean Corpuscular Hemoglobin 30.9 pg (25-34); Mean Corpuscular Hgb Conc 33.9 g/dL (32-36); Mean Corpuscular Volume 91.1 fL (80-100); Mean Platelet Volume 10.5 fL (7.4-10.4); Monocytes # (auto) 0.89 K/uL (0.11-0.59); Monocytes % (auto) 9.5 %; Neutrophils # (auto) 5.84 K/uL (1.4-6.5); Neutrophils % (auto) 62.8 %; Platelet Count 249 K/uL (130-400); RDW Coefficient of Variation 13.8 % (11.5-14.5); RDW Standard Deviation 46.1 fL (36.4-46.3); Red Blood Count 3.95 M/uL (4.7-6.1); White Blood Count 9.32 K/uL (4.8-10.8)
[2020-03-30 20:23] LABS: INR 2.3 (0.9-1.1); Prothrombin Time 23.1 Seconds (9.0-12.0)
[2020-03-30] MEDS ORDERED: lisinopriL 10 MG TAB PO STA (20:32)
[2020-03-30] MEDS ORDERED: AMLODIPINE BESYLATE 5 MG TAB PO ONE (20:32)
[2020-03-30 20:35] LABS: Alanine Aminotransferase 21 U/L (12-78); Albumin Level 2.8 gm/dl (3.4-5.0); Aspartate Aminotransferase 13 U/L (15-37); BUN Creatinine Ratio 14.2 (10-20); Blood Urea Nitrogen 26 mg/dl (7-18); Calcium 8.2 mg/dl (8.5-10.1); Carbon Dioxide 24 mmol/L (21-32); Chloride 105 mmol/L (98-107); Creatinine Clr Calc Pharmacy 38.2 ml/min; Est GFR (African American) 41.8; Est GFR (Non-African American) 36.1; Glucose 293 mg/dl (70-99); Magnesium 1.7 mg/dl (1.8-2.4); Potassium 3.7 mmol/L (3.5-5.1); Sodium 137 mmol/L (136-145)
--- NOTE | 2020-03-30 20:38 | XRay Report ---
XR chest 1V portable CLINICAL HISTORY: weakness COMPARISON STUDY: Chest radiograph and chest CT August 06, 2019. FINDINGS: Lung volumes are normal. Lungs are clear. There is no pneumothorax or pleural effusion. Mil d cardiomegaly is unchanged. Mediastinal contours are normal. There is no evidence for pulmonary gonzález a. IMPRESSION: No acute cardiopulmonary findings. No change in appearance of the chest. ACT 112: Negative or not required by law. Electronically signed by: Jimi Lee M.D. 03/30/2020 8:37 PM
[2020-03-30 20:40] LABS: Albumin Globulin Ratio 0.6 (0.9-2); Alkaline Phosphatase 65 U/L (45-117); Bilirubin,Total 0.2 mg/dl (0.2-1); C Reactive Protein 2.81 mg/dl (0-0.29); Globulin 4.4 gm/dl (2.5-4.0); Total Protein 7.2 gm/dl (6.4-8.2); Troponin I < 0.015 ng/ml (0-0.045)
--- NOTE | 2020-03-30 20:41 | XRay Report ---
XR foot LT 2V CLINICAL HISTORY: cellulitis, ?osteo COMPARISON: None FINDINGS: Distal left fibular plate and screw fixation is partially imaged. No acute fracture is not ed within the left foot. Tarsometatarsal joints are intact. There is moderate plantar calcaneal spurr ing. Moderate vascular calcification is noted. There is no evidence for osteomyelitis within the left foot. Note is made of moderate to severe osteoarthritis within multiple articulations of the left fo ot, most pronounced within the articulations of the first digit. IMPRESSION: 1. No acute fracture. No evidence for osteomyelitis within the left foot. 2. 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 ACT 112: Negative or not required by law. Electronically signed by: Jimi Lee M.D. 03/30/2020 8:39 PM
[2020-03-30] MEDS ORDERED: lisinopriL 5 MG TAB PO ONE (20:42)
[2020-03-30] MEDS ORDERED: cefTRIAXone SODIUM 2,000 MG/70 ML BAG IV STA (21:29)
[2020-03-30] MEDS ORDERED: SODIUM CHLORIDE 0.9% 1000ML 1,000 ML IV SCH (21:30)
[2020-03-30] MEDS ORDERED: NovoLIN-R INSULIN PER UNIT CHARGE SC STA (21:30)
[2020-03-30 22:12] LABS: Appearance Urine Clear (Clear); Bacteria Urine Automated Negative (Negative); Bilirubin Urine Negative (Negative); Blood Urine 1+ (Negative); Color Urine Yellow; Epithelial Cell Urine Auto 0-5 /lpf (0-5); Glucose Urine UA 3+ (Negative); Ketones Urine Negative (Negative); Leukocyte Esterase Urine Negative (Negative); Nitrite Urine Negative (Negative); Protein Urine 3+ (Negative); RBC Urine Automated 0-4 /hpf (0-4); Specific Gravity Urine 1.021 (1.000-1.030); Urobilinogen Urine Negative (Negative)
[2020-03-30 23:45] LABS: Creatine Kinase 117 U/L (39-308)
--- NOTE | 2020-03-31 00:43 | Emergency Department Note ---
History of Present Illness General Chief complaint: Weakness Stated complaint: WEAKNESS IN LEGS Source: patient and RN notes reviewed Mode of arrival: ambulatory Limitations: no limitations History of Present Illness Provider complaint: Weakness, LLE>RLE swelling, L foot pain, redness Maximum Pain Intensity: 9 This pt is a 69 yo male who presents to the ED with c/o generalized weakness, L>R LE edema, L foot pain and redness. Pt states he has been in bed x 3 days. He denies fever but admits he has had decreased taste and smell. He c/o a chest heaviness, but no pain or radiation. He denies cough, SOB, abd pain, vomiting and diarrhea. Home Medications Home Medications Medication Instructions Recorded Confirmed Type Lantus Solostar U-100 Insulin 45 unit SUBCUT BID 10/18/18 03/30/20 History cholecalciferol (vitamin D3) 1,000 unit PO QAM 10/18/18 03/30/20 History [Vitamin D3] ferrous sulfate 0 mg PO BID 10/18/18 03/30/20 History gabapentin 200 mg PO QPM 10/18/18 03/30/20 History pramipexole [Mirapex] 0.5 - 0.75 mg PO QPM 10/18/18 03/30/20 History finasteride 0 mg PO QAM 08/06/19 03/30/20 History metformin 500 mg PO BID 08/06/19 03/30/20 History warfarin 5 mg PO .Q MON 08/06/19 03/30/20 History amlodipine [Norvasc] 5 mg PO DAILY 03/30/20 03/30/20 History aspirin 81 mg PO DAILY 03/30/20 03/30/20 History chlorthalidone 25 mg PO DAILY 03/30/20 03/30/20 History empagliflozin [Jardiance] 10 mg PO DAILY 03/30/20 03/30/20 History warfarin 10 mg PO [id number] 03/30/20 03/30/20 History lisinopril 20 mg PO DAILY 03/31/20 03/31/20 History Allergies Allergy/AdvReac Type Severity Reaction Status Date / Time morphine AdvReac Severe Vomiting Verified 03/30/20 22:08 rosuvastatin [From Crestor] AdvReac Intermediate Cramping Verified 03/30/20 22:09 of the Muscles Past Med/Surg History Medical History Anxiety Asthma in remission BPH (benign prostatic hyperplasia) BPH loc w urin obs/LUTS Broken rib r/t old sports injury, shows up on CXRs as abnormal, but was very remote (in college) and does not cause any pain. Cataract Chronic kidney disease Stage III. follows w/ dr. 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 Galloway, has not had symptoms beyond muscle twitches since the early Osteoarthritis Polyarthritis Prostate cancer screening Thyroid nodule Surgical History H/O arthroscopic knee surgery History of appendectomy History of arthroscopy of left knee History of cardiac cath 15 years ago - CP led to cath - [place] - no stents/angioplasty, ruled indigestion - does not follow w/ cardio History of carpal tunnel release BL History of carpal tunnel surgery History of cystoscopy History of knee joint replacement x 2 rt knee History of repair of rotator cuff BL History of surgery LLE - hardware present History of tooth extraction History of total right knee replacement S/P appendectomy S/P rotator cuff repair Status post biopsy of thyroid gland benign Family History Daughter History of anesthesia reaction PONV Grandfather (Paternal) Family history of diabetes mellitus Mother Family history of diabetes mellitus Father Family history of diabetes mellitus Social History Smoking Status: Never smoker Second Hand Exposure: Yes ( SMOKES); Do You Dip or Chew Tobacco: Yes (1 can/week); Hx Alcohol Use: No Hx Substance Use: No Preferred Language: Malay Communication Ability: Effective Drum Sprayer Required: No Beliefs That Will Affect Care: None marital status: Current Living Situation: Spouse current occupational status: retired Feels Safe at Home: Yes Review of Systems See HPI for pertinent positives & negatives. and A total of 10 systems reviewed and were otherwise negative Physical Exam Vital Signs Vital Signs - 24 hr 03/30/20 18:59 03/30/20 19:08 03/30/20 19:12 Temperature 36.9 C Temperature Source Oral Pulse Rate 87 85 87 Pulse Rate from SpO2 Sensor 85 87 Pulse Rhythm Regular Pulse Strength Normal Respiratory Rate 16 19 20 Respiratory Effort / Characteristics Non-Labored Respiratory Depth Normal Respiratory Pattern Regular Blood Pressure 200/96 H 195/104 H Blood Pressure Mean 130 135 Blood Pressure Position Sitting Pulse Oximetry 98 97 97 Oxygen Delivery Method Room Air Sepsis Recent Fever Within 48 Hours No Sepsis New/Unexplained Change in Mental Status N/A Sepsis Action Taken by Nursing No Action Required 03/30/20 19:16 03/30/20 19:30 03/30/20 19:31 Temperature Temperature Source Pulse Rate 84 81 81 Pulse Rate from SpO2 Sensor 85 81 81 Pulse Rhythm Pulse Strength Respiratory Rate 18 22 19 Respiratory Effort / Characteristics Respiratory Depth Respiratory Pattern Blood Pressure 185/82 H Blood Pressure Mean 121 Blood Pressure Position Pulse Oximetry 98 96 96 Oxygen Delivery Method Sepsis Recent Fever Within 48 Hours Sepsis New/Unexplained Change in Mental Status Sepsis Action Taken by Nursing 03/30/20 19:46 03/30/20 20:00 03/30/20 20:15 Temperature Temperature Source Pulse Rate 83 85 83 Pulse Rate from SpO2 Sensor 83 82 Pulse Rhythm Pulse Strength Respiratory Rate 21 15 20 Respiratory Effort / Characteristics Respiratory Depth Respiratory Pattern Blood Pressure Blood Pressure Mean Blood Pressure Position Pulse Oximetry 95 96 Oxygen Delivery Method Sepsis Recent Fever Within 48 Hours Sepsis New/Unexplained Change in Mental Status Sepsis Action Taken by Nursing 03/30/20 20:16 03/30/20 20:18 03/30/20 20:22 Temperature Temperature Source Pulse Rate 85 81 81 Pulse Rate from SpO2 Sensor 85 82 Pulse Rhythm Pulse Strength Respiratory Rate 19 21 Respiratory Effort / Characteristics Respiratory Depth Respiratory Pattern Blood Pressure 264/141 H Blood Pressure Mean 190 Blood Pressure Position Pulse Oximetry 96 99 94 Oxygen Delivery Method Sepsis Recent Fever Within 48 Hours Sepsis New/Unexplained Change in Mental Status Sepsis Action Taken by Nursing 03/30/20 20:31 03/30/20 20:45 03/30/20 21:00 Temperature Temperature Source Pulse Rate 81 82 81 Pulse Rate from SpO2 Sensor 81 81 80 Pulse Rhythm Pulse Strength Respiratory Rate 20 17 Respiratory Effort / Characteristics Respiratory Depth Respiratory Pattern Blood Pressure 170/93 H 182/96 H 208/103 H Blood Pressure Mean 114 140 138 Blood Pressure Position Pulse Oximetry 96 96 96 Oxygen Delivery Method Sepsis Recent Fever Within 48 Hours Sepsis New/Unexplained Change in Mental Status Sepsis Action Taken by Nursing 03/30/20 21:15 03/30/20 21:30 03/30/20 21:45 Temperature Temperature Source Pulse Rate 79 80 85 Pulse Rate from SpO2 Sensor 79 79 Pulse Rhythm Pulse Strength Respiratory Rate 16 Respiratory Effort / Characteristics Respiratory Depth Respiratory Pattern Blood Pressure 185/97 H 195/113 H Blood Pressure Mean 140 146 Blood Pressure Position Pulse Oximetry 96 95 Oxygen Delivery Method Sepsis Recent Fever Within 48 Hours Sepsis New/Unexplained Change in Mental Status Sepsis Action Taken by Nursing 03/30/20 21:51 03/30/20 22:00 03/30/20 22:15 Temperature Temperature Source Pulse Rate 79 79 80 Pulse Rate from SpO2 Sensor Pulse Rhythm Pulse Strength Respiratory Rate Respiratory Effort / Characteristics Respiratory Depth Respiratory Pattern Blood Pressure 190/92 H 209/102 H 189/98 H Blood Pressure Mean 132 156 129 Blood Pressure Position Pulse Oximetry Oxygen Delivery Method Sepsis Recent Fever Within 48 Hours Sepsis New/Unexplained Change in Mental Status Sepsis Action Taken by Nursing 03/30/20 22:30 03/30/20 22:45 03/30/20 23:00 Temperature Temperature Source Pulse Rate 76 75 73 Pulse Rate from SpO2 Sensor Pulse Rhythm Pulse Strength Respiratory Rate Respiratory Effort / Characteristics Respiratory Depth Respiratory Pattern Blood Pressure 186/102 H 186/91 H 178/88 H Blood Pressure Mean 154 131 101 Blood Pressure Position Pulse Oximetry Oxygen Delivery Method Sepsis Recent Fever Within 48 Hours Sepsis New/Unexplained Change in Mental Status Sepsis Action Taken by Nursing 03/31/20 00:01 Temperature Temperature Source Pulse Rate 80 Pulse Rate from SpO2 Sensor Pulse Rhythm Pulse Strength Respiratory Rate 18 Respiratory Effort / Characteristics Respiratory Depth Respiratory Pattern Blood Pressure 203/85 H Blood Pressure Mean 122 Blood Pressure Position Pulse Oximetry 96 Oxygen Delivery Method Sepsis Recent Fever Within 48 Hours Sepsis New/Unexplained Change in Mental Status Sepsis Action Taken by Nursing Vital signs reviewed. General: Somewhat ill-appearing 69 yo male, in no significant distress. HEENT: No scleral icterus, PERRLA, neck supple. MMM Cardiovascular: Regular rate and rhythm, no extra sounds. Pulmonary: Clear to auscultation bilaterally, normal work of breathing. Abdomen: Soft, nontender, nondistended, positive bowel sounds. Musculoskeletal: Atraumatic, no peripheral edema. minimal swelling and pain with palpation of the MTP 2-3-4-5, pain with movement. Neurologic: Patient awake alert and oriented x 3, full strength in all 4 extremities. Cranial nerves 2 through 12 grossly intact. Skin: Warm, dry, L foot erythema at the MTP2-3-4-5. Course Administered Medications Amlodipine Besylate (Amlodipine Besylate 5 Mg Tab) 5 mg PO DAILY JOYCE Stop: 04/30/20 08:59 Last Admin: 03/31/20 08:04 Dose: 5 mg Documented by: [id number] Aspirin (Aspirin 81 Mg Ectab) 81 mg PO DAILY JOYCE Stop: 04/30/20 08:59 Last Admin: 03/31/20 08:04 Dose: 81 mg Documented by: [id number] Chlorthalidone (Chlorthalidone 25 Mg Tab) 25 mg PO DAILY JOYCE Stop: 04/30/20 08:59 Last Admin: 03/31/20 08:04 Dose: 25 mg Documented by: [id number] Ferrous Sulfate (Ferrous Sulfate 325 Mg Tab) 325 mg PO BID JOYCE Stop: 04/30/20 08:59 Last Admin: 03/31/20 20:45 Dose: 325 mg Documented by: [id number] Admin: 03/31/20 08:04 Dose: 325 mg Documented by: [id number] Finasteride (Finasteride 5 Mg Tab) 5 mg PO QAM JOYCE Stop: 04/30/20 08:59 Last Admin: 03/31/20 08:05 Dose: 5 mg Documented by: [id number] Gabapentin (Gabapentin 100 Mg Cap) 200 mg PO QPM JOYCE Stop: 04/30/20 20:59 Last Admin: 03/31/20 20:44 Dose: 200 mg Documented by: [id number] Hydromorphone HCl (Hydromorphone Inj 0.5 Mg/0.5 Ml Syr) 0.5 mg IV Q3H PRN PRN Reason: Pain Stop: 04/14/20 02:10 Last Admin: 03/31/20 23:55 Dose: 0.5 mg Documented by: [id number] Admin: 03/31/20 17:18 Dose: 0.5 mg Documented by: [id number] Admin: 03/31/20 09:29 Dose: 0.5 mg Documented by: [id number] Admin: 03/31/20 05:10 Dose: 0.5 mg Documented by: [id number] Piperacillin Sod/Tazobactam (Sod 3.375 gm/ Dextrose) 115 mls @ 28.75 mls/hr IV Q8H [facility]; Protocol Stop: 04/07/20 07:59 Last Infusion: 04/01/20 03:56 Dose: 0 mls/hr Documented by: [id number] Admin: 03/31/20 23:56 Dose: 28.8 mls/hr Documented by: [id number] Infusion: 03/31/20 21:22 Dose: 0 mls/hr Documented by: [id number] Admin: 03/31/20 17:17 Dose: 28.8 mls/hr Documented by: [id number] Infusion: 03/31/20 12:12 Dose: 0 mls/hr Documented by: [id number] Admin: 03/31/20 08:08 Dose: 28.8 mls/hr Documented by: [id number] Sodium Chloride (Nss 1000ml) 1,000 mls @ 75 mls/hr IV .[id number] [facility] Stop: 04/30/20 15:00 Last Admin: 04/01/20 06:09 Dose: 75 mls/hr Documented by: [id number] Infusion: 04/01/20 06:09 Dose: 75 mls/hr Documented by: [id number] Admin: 03/31/20 17:17 Dose: 75 mls/hr Documented by: [id number] Infusion: 03/31/20 16:41 Dose: 75 mls/hr Documented by: [id number] Infusion: 03/31/20 03:42 Dose: 75 mls/hr Documented by: [id number] Infusion: 03/31/20 03:01 Dose: 0 mls/hr Documented by: [id number] Admin: 03/31/20 02:39 Dose: 75 mls/hr Documented by: [id number] Insulin Aspart (Insulin Aspart 100 Units/Ml 3 Ml Pen) 0 units SC ACHS [facility] Stop: 04/30/20 02:10 Last Admin: 03/31/20 20:45 Dose: 1 units Documented by: [id number] Cosigned by: [id number] Admin: 03/31/20 17:19 Dose: 7 units Documented by: [id number] Cosigned by: [id number] Admin: 03/31/20 12:15 Dose: 6 units Documented by: [id number] Cosigned by: [id number] Admin: 03/31/20 08:02 Dose: 1 units Documented by: [id number] Cosigned by: [id number] Admin: 03/31/20 03:02 Dose: Not Given Documented by: [id number] Cosigned by: [id number] Insulin Glargine (Insulin Glargine Solostar 100 Units/Ml 3 Ml Pen) 0 units SQ BID [facility]; Protocol Stop: 04/30/20 20:59 Last Admin: 03/31/20 20:43 Dose: 30 units Documented by: [id number] Cosigned by: [id number] Lisinopril (Lisinopril 20 Mg Tab) 20 mg PO DAILY [facility] Stop: 04/30/20 08:59 Last Admin: 03/31/20 08:04 Dose: 20 mg Documented by: [id number] Miscellaneous (Carbohydrates For Hypoglycemia ) 15 - 30 gm PO UD PRN PRN Reason: Hypoglycemia Treatment Stop: 05/01/20 06:29 Last Admin: 04/01/20 06:00 Dose: 15 gm Documented by: [id number] Ondansetron HCl (Ondansetron Inj 2 Mg/Ml 2 Ml Vial) 4 mg IV Q6H PRN PRN Reason: Nausea Stop: 04/30/20 02:10 Last Admin: 03/31/20 05:10 Dose: 4 mg Documented by: [id number] Pramipexole Dihydrochloride (Pramipexole Dihydrochlo 0.25 Mg Tab) 0.5 mg PO QPM [facility] Stop: 04/30/20 20:59 Last Admin: 03/31/20 20:44 Dose: 0.5 mg Documented by: [id number] Prednisone (Prednisone 20 Mg Tab) 40 mg PO DAILY [facility] Stop: 04/30/20 11:29 Last Admin: 03/31/20 12:19 Dose: 40 mg Documented by: [id number] Vitamin D (Cholecalciferol 1,000 Units 25 Mcg Tab) 1,000 units PO QAM [facility] Stop: 04/30/20 08:59 Last Admin: 03/31/20 08:04 Dose: 1,000 units Documented by: [id number] Warfarin Sodium (Warfarin Sod 10 Mg Tab) 10 mg PO [id number] [facility] Stop: 04/30/20 15:59 Last Admin: 03/31/20 17:18 Dose: 10 mg Documented by: [id number] Discontinued Medications Amlodipine Besylate (Amlodipine Besylate 5 Mg Tab) 5 mg PO NOW ONE Stop: 03/30/20 20:33 Last Admin: 03/30/20 20:45 Dose: 5 mg Documented by: [id number] Sodium Chloride (Nss 1000ml) 1,000 mls @ 125 mls/hr IV .Q8H JOYCE Stop: 04/29/20 21:29 Last Infusion: 03/31/20 02:13 Dose: 0 mls/hr Documented by: [id number] Admin: 03/30/20 21:50 Dose: 125 mls/hr Documented by: [id number] Ceftriaxone Sodium (Rocephin) 2,000 mg in 70 mls @ 140 mls/hr IV NOW STA Stop: 03/30/20 21:58 Last Infusion: 03/30/20 22:33 Dose: 0 mls/hr Documented by: [id number] Admin: 03/30/20 21:50 Dose: 140 mls/hr Documented by: [id number] Magnesium Sulfate/Dextrose (Magnesium Sulfate / D5w) 1 gm in 100 mls @ 50 mls/hr IV ONE ONE Stop: 03/31/20 04:10 Last Infusion: 03/31/20 05:12 Dose: 0 mls/hr Documented by: [id number] Admin: 03/31/20 03:01 Dose: 50 mls/hr Documented by: [id number] Piperacillin Sod/Tazobactam (Sod 4.5 gm/ Dextrose) 120 mls @ 200 mls/hr IV NOW ONE; Protocol Stop: 03/31/20 03:20 Last Infusion: 03/31/20 03:42 Dose: 0 mls/hr Documented by: [id number] Admin: 03/31/20 03:00 Dose: 200 mls/hr Documented by: [id number] Insulin Aspart (Insulin Aspart 100 Units/Ml 3 Ml Pen) 0 units SC 0000 JOYCE Stop: 04/01/20 00:01 Last Admin: 04/01/20 00:11 Dose: Not Given Documented by: [id number] Cosigned by: [id number] Insulin Glargine (Insulin Glargine Solostar 100 Units/Ml 3 Ml Pen) 45 units SQ BID JOYCE Stop: 04/30/20 02:10 Last Admin: 03/31/20 08:03 Dose: 45 units Documented by: [id number] Cosigned by: [id number] Admin: 03/31/20 03:02 Dose: 45 units Documented by: [id number] Cosigned by: [id number] Insulin Human Regular (Novolin-R Insulin Per Unit Charge) 8 units SC NOW STA Stop: 03/30/20 21:31 Last Admin: 03/30/20 21:55 Dose: 8 units Documented by: [id number] Cosigned by: [id number] Ketorolac Tromethamine (Ketorolac Tromethamine 15 Mg/Ml Vial) 15 mg IV NOW ONE Stop: 03/31/20 02:12 Last Admin: 03/31/20 02:39 Dose: 15 mg Documented by: [id number] Lisinopril (Lisinopril 10 Mg Tab) 10 mg PO NOW STA Stop: 03/30/20 20:33 Last Admin: 03/30/20 20:45 Dose: Not Given Documented by: [id number] Lisinopril (Lisinopril 5 Mg Tab) Confirm Administered Dose 10 mg PO .STK-MED ONE Stop: 03/30/20 20:43 Last Admin: 03/30/20 20:44 Dose: 10 mg Documented by: [id number] Medical Decision Making Differential Diagnosis Differential includes acute coronary syndrome, myocardial infarction, CVA, TIA, anemia, infection, pneumonia, UTI, pyelonephritis, poor nutrition, dehydration, electrolyte disturbance, hypoglycemia, cellulitis, osteomyelitis, fx, DVT Medical Records Attestation: I reviewed the patient's medical records. Home Medications Current Medication List: was personally reviewed by me Laboratory Data Attestation: I reviewed the patient's lab results. Result diagrams: 03/31/20 06:52 03/31/20 06:52 Lab Results 03/30/20 03/30/20 03/30/20 Range/Units 20:00 20:00 20:00 WBC 9.32 (4.8-10.8) K/uL RBC 3.95 L (4.7-6.1) M/uL Hgb 12.2 L (14.0-18.0) g/dL Hct 36.0 L (42-52) % MCV 91.1 (80-100) fL MCH 30.9 (25-34) pg MCHC 33.9 (32-36) g/dL RDW Std Deviation 46.1 (36.4-46.3) fL RDW Coeff of Leo 13.8 (11.5-14.5) % Plt Count 249 (130-400) K/uL MPV 10.5 H (7.4-10.4) fL Immature Gran % (Auto) 0.3 % Neut % (Auto) 62.8 % Lymph % (Auto) 17.8 % [place] % (Auto) 9.5 % Eos % (Auto) 9.4 % Baso % (Auto) 0.2 % Neut # (Auto) 5.84 (1.4-6.5) K/uL Lymph # (Auto) 1.66 (1.2-3.4) K/uL [place] # (Auto) 0.89 H (0.11-0.59) K/uL Eos # (Auto) 0.88 H (0-0.5) K/uL Baso # (Auto) 0.02 (0-0.2) K/uL Immature Gran # (Auto) 0.03 H (0.00-0.02) K/uL ESR (0-14) mm/hr PT 23.1 H (9.0-12.0) Seconds INR 2.3 H (0.9-1.1) Sodium 137 (136-145) mmol/L Potassium 3.7 (3.5-5.1) mmol/L Chloride 105 (98-107) mmol/L Carbon Dioxide 24 (21-32) mmol/L Anion Gap 8.0 (3-11) BUN 26 H (7-18) mg/dl Creatinine 1.85 H (0.6-1.4) mg/dl Est Cr Clr Drug Dosing 38.2 ml/min Est GFR ( Amer) 41.8 Est GFR (Non-Af Amer) 36.1 BUN/Creatinine Ratio 14.2 (10-20) Glucose 293 H (70-99) mg/dl POC Glucose (70-99) mg/dl Lactate (0.4-2.0) mmol/L Calcium 8.2 L (8.5-10.1) mg/dl Magnesium 1.7 L (1.8-2.4) mg/dl Total Bilirubin 0.2 (0.2-1) mg/dl AST 13 L (15-37) U/L ALT 21 (12-78) U/L Alkaline Phosphatase 65 (45-117) U/L Total Creatine Kinase 117 (39-308) U/L Troponin I < 0.015 (0-0.045) ng/ml C-Reactive Protein 2.81 H (0-0.29) mg/dl Total Protein 7.2 (6.4-8.2) gm/dl Albumin 2.8 L (3.4-5.0) gm/dl Globulin 4.4 H (2.5-4.0) gm/dl Albumin/Globulin Ratio 0.6 L (0.9-2) Urine Color Urine Appearance (Clear) Urine pH (4.5-7.5) Ur Specific [place] (1.000-1.030) Urine Protein (Negative) Urine Glucose (UA) (Negative) Urine Ketones (Negative) Urine Blood (Negative) Urine Nitrite (Negative) Urine Bilirubin (Negative) Urine Urobilinogen (Negative) Ur Leukocyte Esterase (Negative) Urine WBC (Auto) (0-5) /hpf Urine RBC (Auto) (0-4) /hpf U Hyaline Cast (Auto) (0-5) /lpf U Epithel Cells (Auto) (0-5) /lpf Urine Bacteria (Auto) (Negative) COVID-19 Eval Order COVID-19 PCR (Negative) 03/30/20 03/30/20 03/30/20 Range/Units 20:00 20:00 21:45 WBC (4.8-10.8) K/uL RBC (4.7-6.1) M/uL Hgb (14.0-18.0) g/dL Hct (42-52) % MCV (80-100) fL MCH (25-34) pg MCHC (32-36) g/dL RDW Std Deviation (36.4-46.3) fL RDW Coeff of Leo (11.5-14.5) % Plt Count (130-400) K/uL MPV (7.4-10.4) fL Immature Gran % (Auto) % Neut % (Auto) % Lymph % (Auto) % [place] % (Auto) % Eos % (Auto) % Baso % (Auto) % Neut # (Auto) (1.4-6.5) K/uL Lymph # (Auto) (1.2-3.4) K/uL [place] # (Auto) (0.11-0.59) K/uL Eos # (Auto) (0-0.5) K/uL Baso # (Auto) (0-0.2) K/uL Immature Gran # (Auto) (0.00-0.02) K/uL ESR 53 H (0-14) mm/hr PT (9.0-12.0) Seconds INR (0.9-1.1) Sodium (136-145) mmol/L Potassium (3.5-5.1) mmol/L Chloride (98-107) mmol/L Carbon Dioxide (21-32) mmol/L Anion Gap (3-11) BUN (7-18) mg/dl Creatinine (0.6-1.4) mg/dl Est Cr Clr Drug Dosing ml/min Est GFR ( Amer) Est GFR (Non-Af Amer) BUN/Creatinine Ratio (10-20) Glucose (70-99) mg/dl POC Glucose (70-99) mg/dl Lactate 1.7 (0.4-2.0) mmol/L Calcium (8.5-10.1) mg/dl Magnesium (1.8-2.4) mg/dl Total Bilirubin (0.2-1) mg/dl AST (15-37) U/L ALT (12-78) U/L Alkaline Phosphatase (45-117) U/L Total Creatine Kinase (39-308) U/L Troponin I (0-0.045) ng/ml C-Reactive Protein (0-0.29) mg/dl Total Protein (6.4-8.2) gm/dl Albumin (3.4-5.0) gm/dl Globulin (2.5-4.0) gm/dl Albumin/Globulin Ratio (0.9-2) Urine Color Yellow Urine Appearance Clear (Clear) Urine pH 5.0 (4.5-7.5) Ur Specific [place] 1.021 (1.000-1.030) Urine Protein 3+ H (Negative) Urine Glucose (UA) 3+ H (Negative) Urine Ketones Negative (Negative) Urine Blood 1+ H (Negative) Urine Nitrite Negative (Negative) Urine Bilirubin Negative (Negative) Urine Urobilinogen Negative (Negative) Ur Leukocyte Esterase Negative (Negative) Urine WBC (Auto) 1-5 (0-5) /hpf Urine RBC (Auto) 0-4 (0-4) /hpf U Hyaline Cast (Auto) 1-5 (0-5) /lpf U Epithel Cells (Auto) 0-5 (0-5) /lpf Urine Bacteria (Auto) Negative (Negative) COVID-19 Eval Order COVID-19 PCR (Negative) 03/30/20 03/30/20 03/30/20 Range/Units 21:50 21:50 23:07 WBC (4.8-10.8) K/uL RBC (4.7-6.1) M/uL Hgb (14.0-18.0) g/dL Hct (42-52) % MCV (80-100) fL MCH (25-34) pg MCHC (32-36) g/dL RDW Std Deviation (36.4-46.3) fL RDW Coeff of Leo (11.5-14.5) % Plt Count (130-400) K/uL MPV (7.4-10.4) fL Immature Gran % (Auto) % Neut % (Auto) % Lymph % (Auto) % [place] % (Auto) % Eos % (Auto) % Baso % (Auto) % Neut # (Auto) (1.4-6.5) K/uL Lymph # (Auto) (1.2-3.4) K/uL [place] # (Auto) (0.11-0.59) K/uL Eos # (Auto) (0-0.5) K/uL Baso # (Auto) (0-0.2) K/uL Immature Gran # (Auto) (0.00-0.02) K/uL ESR (0-14) mm/hr PT (9.0-12.0) Seconds INR (0.9-1.1) Sodium (136-145) mmol/L Potassium (3.5-5.1) mmol/L Chloride (98-107) mmol/L Carbon Dioxide (21-32) mmol/L Anion Gap (3-11) BUN (7-18) mg/dl Creatinine (0.6-1.4) mg/dl Est Cr Clr Drug Dosing ml/min Est GFR ( Amer) Est GFR (Non-Af Amer) BUN/Creatinine Ratio (10-20) Glucose (70-99) mg/dl POC Glucose 185 H (70-99) mg/dl Lactate (0.4-2.0) mmol/L Calcium (8.5-10.1) mg/dl Magnesium (1.8-2.4) mg/dl Total Bilirubin (0.2-1) mg/dl AST (15-37) U/L ALT (12-78) U/L Alkaline Phosphatase (45-117) U/L Total Creatine Kinase (39-308) U/L Troponin I (0-0.045) ng/ml C-Reactive Protein (0-0.29) mg/dl Total Protein (6.4-8.2) gm/dl Albumin (3.4-5.0) gm/dl Globulin (2.5-4.0) gm/dl Albumin/Globulin Ratio (0.9-2) Urine Color Urine Appearance (Clear) Urine pH (4.5-7.5) Ur Specific [place] (1.000-1.030) Urine Protein (Negative) Urine Glucose (UA) (Negative) Urine Ketones (Negative) Urine Blood (Negative) Urine Nitrite (Negative) Urine Bilirubin (Negative) Urine Urobilinogen (Negative) Ur Leukocyte Esterase (Negative) Urine WBC (Auto) (0-5) /hpf Urine RBC (Auto) (0-4) /hpf U Hyaline Cast (Auto) (0-5) /lpf U Epithel Cells (Auto) (0-5) /lpf Urine Bacteria (Auto) (Negative) COVID-19 Eval Order Covid19 Done at [facility] COVID-19 PCR NEGATIVE (Negative) Imaging Data Radiologist's Impression: XR chest 1V portable CLINICAL HISTORY: weakness COMPARISON STUDY: Chest radiograph and chest CT August 06, 2019. FINDINGS: Lung volumes are normal. Lungs are clear. There is no pneumothorax or pleural effusion. Mild cardiomegaly is unchanged. Mediastinal contours are normal. There is no evidence for pulmonary edema. IMPRESSION: No acute cardiopulmonary findings. No change in appearance of the chest. ACT 112: Negative or not required by law. Electronically signed by: Jimi Lee M.D. 03/30/2020 8:37 PM Dictated: 03/30/202035 Transcribed: 03/30/202035 BILATERAL LOWER EXTREMITY VENOUS DOPPLER HISTORY: Bilateral lower extremity edema. COMPARISON STUDY: Venous Doppler 08/06/2019. FINDINGS: There is normal compressibility, flow, and augmentation within the bilateral lower extremity deep venous systems. IMPRESSION: No DVT within the right or left lower extremity. ACT 112: Negative or not required by law. Electronically signed by: Vance Prieto M.D. 03/31/2020 7:13 AM Dictated: 03/31/20711 Transcribed: 03/31/20711 XR foot LT 2V CLINICAL HISTORY: cellulitis, ?osteo COMPARISON: None FINDINGS: Distal left fibular plate and screw fixation is partially imaged. No acute fracture is noted within the left foot. Tarsometatarsal joints are intact. There is moderate plantar calcaneal spurring. Moderate vascular calcification is noted. There is no evidence for osteomyelitis within the left foot. Note is made of moderate to severe osteoarthritis within multiple articulations of the left foot, most pronounced within the articulations of the first digit. IMPRESSION: 1. No acute fracture. No evidence for osteomyelitis within the left foot. 2. 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 ACT 112: Negative or not required by law. Electronically signed by: Jimi Lee M.D. 03/30/2020 8:39 PM Dictated: 03/30/202036 Transcribed: 03/30/202036 ECG Data Attestation: I personally reviewed and interpreted this ECG as follows: Indication: + weakness Rate (beats per minute): 81 Rhythm: + sinus rhythm ECG Intervals/blocks: + First degree AV block ECG [place]: + Normal ECG ST segments: + Normal ST segments Blood Pressure Blood Pressure Findings: Elevated blood pressure Blood Pressure Disposition: further management by hospitalist ADDIS Narrative This pt was evaluated and appeared to be in no distress. IV access was obtained and lab work was drawn. An order for cardiac monitoring was placed and the pt was noted to be in a NSR at 85. Lab work reveals an elevated sed rate and CRP, normal WBC. Pt received SQ regular insulin for hyperglycemia. Pt was given po lisinopril 10mg and 5 mg amlodipine (home doses) for HTN as he "has been out of meds > 1 week." XR reveals no changes c/w osteo, but there is pain to palpation and movement of the L foot. INR is therapeutic, US neg for DVT bilaterally. CXR is clear. Trop is neg and no acute ischemia on EKG. Pt was medicated with IV ceftriaxone for presumed cellulitis possible osteomyelitis. He was rapid COVID swabbed and negative. PT was d/w the hospitalist service for further management. Impression & Plan Cellulitis of left lower extremity, DM type 2 (diabetes mellitus, type 2), Weakness, Hypertension, uncontrolled Discharge Plan Visit Data Chief Complaint: Weakness Stated Complaint: WEAKNESS IN LEGS ED Provider: Omayra Pineda Discharge Problem: Cellulitis of left lower extremity, DM type 2 (diabetes mellitus, type 2), Weakness, Hypertension, uncontrolled Patient Disposition: Admitted As Inpatient Discharge Instructions Interventions: ED Discharge Assessment Last Done: 03/31/20 01:10 Discharge Problem: DM type 2 (diabetes mellitus, type 2) Qualifiers: Diabetes mellitus nursing home insulin use: with nursing home use Diabetes mellitus complication status: with hyperglycemia Qualified Code(s): E11.65 - Type 2 diabetes mellitus with hyperglycemia
[2020-03-31] MEDS ORDERED: MAGNESIUM SULFATE / D5W 1 GM/100 ML BAG IV ONE (02:11)
[2020-03-31] MEDS ORDERED: POLYETHYLENE (MIRALAX) 17 GM PACK PO PRN (02:11)
[2020-03-31] MEDS ORDERED: PIPERACILL/TAZOBAC CONSULT ACTIVE PRN (02:11)
[2020-03-31] MEDS ORDERED: ONDANSETRON INJ 2 MG/ML 2 ML VIAL IV PRN (02:11)
[2020-03-31] MEDS ORDERED: NITROGLYCERIN SL 0.4 MG/TAB TAB SL PRN (02:11)
[2020-03-31] MEDS ORDERED: ACETAMINOPHEN 325 MG TAB PO PRN (02:11)
[2020-03-31] MEDS ORDERED: KETOROLAC TROMETHAMINE 15 MG/ML VIAL IV ONE (02:11)
[2020-03-31] MEDS ORDERED: HydrALAZINE HCL 20 MG/ML VIAL IV PRN (02:11)
[2020-03-31] MEDS: SODIUM CHLORIDE 0.9% 1000ML 1,000 ML IV SCH ×2 (02:39→17:17)
[2020-03-31] MEDS ORDERED: PIPERACILLIN/TAZOBACTAM 4.5 GM in DEXTROSE 5% 100 ML IV ONE (02:45)
--- NOTE | 2020-03-31 02:55 | History and Physical Report ---
DATE OF ADMISSION: 03/30/2020 CHIEF COMPLAINT: Right lower extremity pain and weakness. 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 The patient says he could not feel his left lower extremity for a few days, then now he has developed severe pain and some erythema in the left foot region. He says he could not put weight on the leg. He also has diabetic polyneuropathy and his balance is not that great.Also he stopped taking lisinopril and chlorthalidone for a few weeks now because he does not have any money to buy the medications. He says blood sugars are running okay at home. He also gets some lower chest pain, attributes this to acid reflux on and off. Denies any shortness of breath, no cough. He had a low-grade fever in the last week. Denies any headache, no blurred vision, no earache. He has a runny nose for a couple of weeks. He thinks he has had loss of sense of smell and taste for a few days, but did not travel and exposure to COVID patients. His COVID test was negative in the ER. He has no difficulty swallowing. Appetite is okay. Normal bowel and bladder movements. No hematuria, no black stools or blood in the stools. Currently resting comfortably. Blood pressure is running high. ALLERGIES: MORPHINE AND CRESTOR. PAST MEDICAL HISTORY: As mentioned above. PAST SURGICAL HISTORY: Right total knee arthroplasty, bilateral carpal tunnel surgery, colonoscopy, knee arthroscopy, appendectomy, bilateral rotator cuff repair. MEDICATIONS: The patient is supposed to be on Jardiance 10 mg p.o. daily, gabapentin 200 mg p.o. at bedtime, lisinopril 20 mg p.o. daily, Coumadin 10 mg as directed, Lantus 45 units b.i.d., amlodipine 5 mg p.o. daily, chlorthalidone 25 mg p.o. daily, finasteride 5 mg p.o. daily, metformin 500 mg p.o. b.i.d., Mirapex 0.50 to 0.75 mg p.o. at bedtime, vitamin D 1000 units p.o. daily, ferrous sulfate 325 mg p.o. b.i.d. FAMILY HISTORY: Significant for mother had rheumatoid arthritis, breast cancer, diabetes, end-stage renal disease, heart disorder. Father had chronic kidney disease, dementia, diabetes, gastric ulcers. SOCIAL HISTORY: and lives with his . Snuffs tobacco. No alcohol use, no drug use. REVIEW OF SYSTEMS: As per HPI. Rest of the review of systems negative. PHYSICAL EXAMINATION: GENERAL: The patient is of moderate build, not in acute distress. VITAL SIGNS: Temperature 36.9, pulse 80, respiratory rate 18, blood pressure 203/85, oxygen 96% on room air. HEENT: No pallor, no icterus. Pupils equal, round, and reactive to light. NECK: No JVD, no neck masses. CARDIOVASCULAR: S1, S2 heard, regular rate and rhythm, no murmur, no gallop. RESPIRATORY SYSTEM: Normal AP diameter. No accessory muscle use. No wheezing, no crackles. ABDOMEN: Soft, bowel sounds present. Mild abdominal discomfort. No guarding. No rigidity. CENTRAL NERVOUS SYSTEM: Cranial nerves II-XII grossly intact. Nonfocal. EXTREMITIES: Left foot region and left big toe region is somewhat erythematous and tender to palpation. LABORATORY DATA: WBC 9, hemoglobin 12.2, hematocrit 36, platelets 249. Sodium 137, potassium 3.7, chloride 105, bicarbonate 24, BUN 26, creatinine 1.85, serum glucose 293, lactate 1.7, calcium 8.2, magnesium 1.7, total bilirubin 0.2, AST 33, ALT 21, alkaline phosphatase 65, total creatinine kinase 117. Troponin I less than 0.015. Urinalysis, +3 glucose, +3 protein. COVID-19 PCR negative. IMAGING DATA: Foot x-ray, no acute fracture, no evidence for osteomyelitis of the left foot, moderate to severe osteoarthritis, multiple articulation of the left foot. Chest x-ray, no acute cardiopulmonary findings. Venous Doppler study pending. EKG: Sinus rhythm with first-degree AV block, no acute ST changes seen, no significant change was found. ASSESSMENT AND PLAN: This 69-year-old male presents with left lower extremity cellulitis. 1. Left lower extremity cellulitis. Could also be arthritic flare or gout flare. We will check for uric acid level. Given Rocephin er. Will continue with IV Zosyn. Follow the cultures. Follow the response. Control the pain. PT and OT when stable. Monitor in the hospital. Will check uric acid levels. 2. Hypertensive urgency. The patient is supposed to be on amlodipine, chlorthalidone, lisinopril. Not taking his chlorthalidone and lisinopril because he ran out of the medication and he does not have money to buy them. We will restart them. If renal function worsens, we will hold them. We will place him on IV hydralazine p.r.n., Monitor the blood pressure. 3. Diabetic polyneuropathy, questionable multiple sclerosis. Follows with neurology. PT and OT when stable. 4. Diabetes. Continue his Lantus. His baseline creatinine is 1.5 and nephrology was okay for metformin. We will hold the metformin for now and place on insulin sliding scale. Follow hemoglobin A1c levels. 5. Acute kidney injury on chronic kidney disease stage III, baseline creatinine around 1.4-1.5, presently with creatinine of 1.8. Getting gentle fluids. Follow the labs in the a.m. 6. Questionable MUGS recent lab was okay. Follow up with primary care physician. 7. History of deep venous thrombosis, on Coumadin. INR is therapeutic. Follow PT/INR. Continue his home Coumadin. 8. Deep venous thrombosis prophylaxis. INR therapeutic. DISPOSITION: Admit to med tele. Expect to discharge home and follow with family doctor. PT and OT prior to discharge. Social service to help with discharge planning. Code status level 1 full code. MTDD
[2020-03-31] MEDS: INSULIN ASPART 100 UNITS/ML 3 ML PEN SC SCH ×5 (03:02→20:45)
[2020-03-31] MEDS: INSULIN GLARGINE SOLOSTAR 100 UNITS/ML 3 ML PEN SQ SCH ×3 (03:02→20:43)
[2020-03-31] MEDS: HYDROmorphone INJ 0.5 MG/0.5 ML SYR IV PRN ×4 (05:10→23:55)
--- NOTE | 2020-03-31 07:14 | Ultrasound Report ---
BILATERAL LOWER EXTREMITY VENOUS DOPPLER HISTORY: Bilateral lower extremity edema. COMPARISON STUDY: Venous Doppler 08/06/2019. FINDINGS: There is normal compressibility, flow, and augmentation within the bilateral lower extremit y deep venous systems. IMPRESSION: No DVT within the right or left lower extremity. ACT 112: Negative or not required by law. Electronically signed by: Vance Prieto M.D. 03/31/2020 7:13 AM
[2020-03-31 07:34] LABS: Basophils # (auto) 0.03 K/uL (0-0.2); Basophils % (auto) 0.4 %; Eosinophils # (auto) 0.97 K/uL (0-0.5); Eosinophils % (auto) 12.7 %; Hematocrit (blood only) 36.6 % (42-52); Hemoglobin 11.7 g/dL (14.0-18.0); Immature Granulocytes # (auto) 0.01 K/uL (0.00-0.02); Immature Granulocytes % (auto) 0.1 %; Lymphocytes # (auto) 1.99 K/uL (1.2-3.4); Mean Corpuscular Hemoglobin 29.5 pg (25-34); Mean Corpuscular Volume 92.4 fL (80-100); Mean Platelet Volume 10.3 fL (7.4-10.4); Monocytes # (auto) 0.68 K/uL (0.11-0.59); Monocytes % (auto) 8.9 %; Neutrophils # (auto) 3.96 K/uL (1.4-6.5); Neutrophils % (auto) 51.9 %; Platelet Count 238 K/uL (130-400); RDW Coefficient of Variation 14.1 % (11.5-14.5); RDW Standard Deviation 47.9 fL (36.4-46.3); Red Blood Count 3.96 M/uL (4.7-6.1); White Blood Count 7.64 K/uL (4.8-10.8)
[2020-03-31 07:45] LABS: INR 2.7 (0.9-1.1)
[2020-03-31 08:00] LABS: Calcium 8.3 mg/dl (8.5-10.1); Creatinine Clr Calc Pharmacy 45.1 ml/min; Magnesium 2.2 mg/dl (1.8-2.4); Potassium 3.4 mmol/L (3.5-5.1)
[2020-03-31] MEDS: FERROUS SULFATE 325 MG TAB PO SCH ×2 (08:04→20:45)
[2020-03-31] MEDS: AMLODIPINE BESYLATE 5 MG TAB PO SCH (08:04)
[2020-03-31] MEDS: CHOLECALCIFEROL 1,000 UNITS 25 MCG TAB PO SCH (08:04)
[2020-03-31] MEDS: lisinopriL 20 MG TAB PO SCH (08:04)
[2020-03-31] MEDS: ASPIRIN 81 MG ECTAB PO SCH (08:04)
[2020-03-31] MEDS: FINASTERIDE 5 MG TAB PO SCH (08:05)
[2020-03-31] MEDS: PIPERACILLIN/TAZOBACTAM 3.375 GM in DEXTROSE 5% 100 ML IV SCH ×3 (08:08→23:56)
[2020-03-31 08:45] LABS: Estimated Average Glucose 189 mg/dl; Hemoglobin A1C 8.2 % (4.5-5.6)
[2020-03-31] MEDS ORDERED: CHLORTHALIDONE 25 MG TAB PO SCH (09:00)
--- NOTE | 2020-03-31 11:15 | Hospitalist Progress Note ---
Date of Service March 31, 2020 Assessment & Plan (1) Left foot pain: ASSESSMENT AND PLAN: This 69-year-old male presents with left lower extremity cellulitis. 1. Left Foot Cellulitis, possible Septic Arthritis Possible Acute Gout Attack - foot xray: no fractures - blood culture: pending - uric acid: elevated at 8.3 - ff up cultures continue Zosyn IV for now - start Prednisone for possible Acute Gout Attack (avoiding Colchicine and NSAIDs due to CKD) Ortho consulted 2. Hypertensive urgency. The patient is supposed to be on amlodipine, chlorthalidone, lisinopril. - hold Chlorthalidone and Lisinopril given elevated crea - continue Amlodipine 5mg po daily monitor BP, renal function case management on board 3. Diabetic polyneuropathy, questionable multiple sclerosis. - Follows with neurology. PT and OT when stable. 4. Diabetes. - Continue his Lantus. His baseline creatinine is 1.5 and nephrology was okay for metformin. - hold Metformin ISS for now 5. Acute kidney injury on chronic kidney disease stage III, baseline creatinine around 1.4-1.5, presently with creatinine of 1.8. - gentle IV fluids monitor BMP 6. Questionable MUGS recent lab was okay. Follow up with primary care physician. 7. History of deep venous thrombosis, on Coumadin. INR is therapeutic. Follow PT/INR. Continue his home Coumadin. 8. Deep venous thrombosis prophylaxis. INR therapeutic. Disposition lives with at home will order PT/OT evaluation Admission and Anticipated Discharge Date Admission Date: March 31, 2020 Subjective ff up for left foot cellulitis, possible septic arthritis seen resting in bed, not in distress states L foot pain is somewhat the same as last night also reports pain on the right forefoot area, and right index finger DIP joint no fever/chills so far denies chest pain, dyspnea, palpitations, dizziness no other symptoms Review of Systems Review of Systems: All systems reviewed & are unremarkable except as noted in HPI & below Physical Exam Physical Exam: General- oriented x 3, not in distress, speaks in sentences with no effort or accessory muscle use Head- atraumatic Eyes- PERRL, EOMI, anicteric ENT- oropharynx clear Neck- supple, no JVD, no adenopathy, no thyromegaly; carotids +2/2, no bruits appreciated Lungs- clear to auscultation bilaterally, no rales/wheezes Heart- normal rate, regular rhythm; no murmur, no gallop, no rub appreciated Abdomen- normal bowel sounds, nondistended, soft, nontender, no masses or hepatosplenomegaly Extremities- L foot: (+) mild warmth, mild edema, (+) moderate-severe tenderness, no erythema, poor ROM due to pain R foot: trace edema, mild warmth and tenderness on the forefoot region, mostly in the base of the great toe Right hand: (+) swelling of the DIP, with tenderness and poor ROM no pretibial edema, no calf tenderness; peripheral pulses intact Neuro- alert, oriented x 3; CN 2-12 grossly intact; motor 5/5 bilaterally;sensation 100% on all extremities; no other gross focal neurologic deficits Skin- warm & dry Results & Data Results & Data ([facility]) Vital Signs (Past 12 Hours) Vital Signs Temp Pulse Pulse Pulse Resp BP BP 03/31/20 07:48 60 03/31/20 07:00 36.3 C L 59 L 18 03/31/20 04:18 36.4 C L 67 18 148/77 H 03/31/20 01:23 36.8 C 78 20 162/74 H 03/31/20 01:00 74 17 142/77 H 03/31/20 00:45 73 14 151/69 H 03/31/20 00:30 77 18 151/88 H 03/31/20 00:15 84 16 194/97 H 03/31/20 00:01 80 18 203/85 H BP Pulse Ox 03/31/20 07:48 03/31/20 07:00 129/75 96 03/31/20 04:18 98 03/31/20 01:23 96 03/31/20 01:00 03/31/20 00:45 03/31/20 00:30 03/31/20 00:15 03/31/20 00:01 96 Laboratory Results Laboratory Results - last 24 hr 03/30/20 03/30/20 03/30/20 20:00 20:00 20:00 WBC 9.32 RBC 3.95 L Hgb 12.2 L Hct 36.0 L MCV 91.1 MCH 30.9 MCHC 33.9 RDW Std Deviation 46.1 RDW Coeff of Leo 13.8 Plt Count 249 MPV 10.5 H Immature Gran % (Auto) 0.3 Neut % (Auto) 62.8 Lymph % (Auto) 17.8 Edgar % (Auto) 9.5 Eos % (Auto) 9.4 Baso % (Auto) 0.2 Neut # (Auto) 5.84 Lymph # (Auto) 1.66 Edgar # (Auto) 0.89 H Eos # (Auto) 0.88 H Baso # (Auto) 0.02 Immature Gran # (Auto) 0.03 H ESR PT 23.1 H INR 2.3 H Sodium 137 Potassium 3.7 Chloride 105 Carbon Dioxide 24 Anion Gap 8.0 BUN 26 H Creatinine 1.85 H Est Cr Clr Drug Dosing 38.2 Est GFR ( Amer) 41.8 Est GFR (Non-Af Amer) 36.1 BUN/Creatinine Ratio 14.2 Glucose 293 H POC Glucose Estimat Average Glucose Hemoglobin A1c Lactate Uric Acid Calcium 8.2 L Magnesium 1.7 L Total Bilirubin 0.2 AST 13 L ALT 21 Alkaline Phosphatase 65 Total Creatine Kinase 117 Troponin I < 0.015 C-Reactive Protein 2.81 H Total Protein 7.2 Albumin 2.8 L Globulin 4.4 H Albumin/Globulin Ratio 0.6 L Urine Color Urine Appearance Urine pH Ur Specific [place] Urine Protein Urine Glucose (UA) Urine Ketones Urine Blood Urine Nitrite Urine Bilirubin Urine Urobilinogen Ur Leukocyte Esterase Urine WBC (Auto) Urine RBC (Auto) U Hyaline Cast (Auto) U Epithel Cells (Auto) Urine Bacteria (Auto) COVID-19 Eval Order COVID-19 PCR Hepatitis C Ab Screen 03/30/20 03/30/20 03/30/20 20:00 20:00 21:45 WBC RBC Hgb Hct MCV MCH MCHC RDW Std Deviation RDW Coeff of Leo Plt Count MPV Immature Gran % (Auto) Neut % (Auto) Lymph % (Auto) Edgar % (Auto) Eos % (Auto) Baso % (Auto) Neut # (Auto) Lymph # (Auto) Edgar # (Auto) Eos # (Auto) Baso # (Auto) Immature Gran # (Auto) ESR 53 H PT INR Sodium Potassium Chloride Carbon Dioxide Anion Gap BUN Creatinine Est Cr Clr Drug Dosing Est GFR ( Amer) Est GFR (Non-Af Amer) BUN/Creatinine Ratio Glucose POC Glucose Estimat Average Glucose Hemoglobin A1c Lactate 1.7 Uric Acid Calcium Magnesium Total Bilirubin AST ALT Alkaline Phosphatase Total Creatine Kinase Troponin I C-Reactive Protein Total Protein Albumin Globulin Albumin/Globulin Ratio Urine Color Yellow Urine Appearance Clear Urine pH 5.0 Ur Specific [place] 1.021 Urine Protein 3+ H Urine Glucose (UA) 3+ H Urine Ketones Negative Urine Blood 1+ H Urine Nitrite Negative Urine Bilirubin Negative Urine Urobilinogen Negative Ur Leukocyte Esterase Negative Urine WBC (Auto) 1-5 Urine RBC (Auto) 0-4 U Hyaline Cast (Auto) 1-5 U Epithel Cells (Auto) 0-5 Urine Bacteria (Auto) Negative COVID-19 Eval Order COVID-19 PCR Hepatitis C Ab Screen 03/30/20 03/30/20 03/30/20 21:50 21:50 23:07 WBC RBC Hgb Hct MCV MCH MCHC RDW Std Deviation RDW Coeff of Leo Plt Count MPV Immature Gran % (Auto) Neut % (Auto) Lymph % (Auto) Edgar % (Auto) Eos % (Auto) Baso % (Auto) Neut # (Auto) Lymph # (Auto) Edgar # (Auto) Eos # (Auto) Baso # (Auto) Immature Gran # (Auto) ESR PT INR Sodium Potassium Chloride Carbon Dioxide Anion Gap BUN Creatinine Est Cr Clr Drug Dosing Est GFR ( Amer) Est GFR (Non-Af Amer) BUN/Creatinine Ratio Glucose POC Glucose 185 H Estimat Average Glucose Hemoglobin A1c Lactate Uric Acid Calcium Magnesium Total Bilirubin AST ALT Alkaline Phosphatase Total Creatine Kinase Troponin I C-Reactive Protein Total Protein Albumin Globulin Albumin/Globulin Ratio Urine Color Urine Appearance Urine pH Ur Specific [place] Urine Protein Urine Glucose (UA) Urine Ketones Urine Blood Urine Nitrite Urine Bilirubin Urine Urobilinogen Ur Leukocyte Esterase Urine WBC (Auto) Urine RBC (Auto) U Hyaline Cast (Auto) U Epithel Cells (Auto) Urine Bacteria (Auto) COVID-19 Eval Order Covid19 Done at [facility] COVID-19 PCR NEGATIVE Hepatitis C Ab Screen 03/31/20 03/31/20 03/31/20 02:58 06:52 06:52 WBC RBC Hgb Hct MCV MCH MCHC RDW Std Deviation RDW Coeff of Leo Plt Count MPV Immature Gran % (Auto) Neut % (Auto) Lymph % (Auto) Edgar % (Auto) Eos % (Auto) Baso % (Auto) Neut # (Auto) Lymph # (Auto) Edgar # (Auto) Eos # (Auto) Baso # (Auto) Immature Gran # (Auto) ESR PT 27.0 H INR 2.7 H Sodium Potassium Chloride Carbon Dioxide Anion Gap BUN Creatinine Est Cr Clr Drug Dosing Est GFR ( Amer) Est GFR (Non-Af Amer) BUN/Creatinine Ratio Glucose POC Glucose 116 H Estimat Average Glucose Hemoglobin A1c Lactate Uric Acid 8.3 H Calcium Magnesium Total Bilirubin AST ALT Alkaline Phosphatase Total Creatine Kinase Troponin I C-Reactive Protein Total Protein Albumin Globulin Albumin/Globulin Ratio Urine Color Urine Appearance Urine pH Ur Specific [place] Urine Protein Urine Glucose (UA) Urine Ketones Urine Blood Urine Nitrite Urine Bilirubin Urine Urobilinogen Ur Leukocyte Esterase Urine WBC (Auto) Urine RBC (Auto) U Hyaline Cast (Auto) U Epithel Cells (Auto) Urine Bacteria (Auto) COVID-19 Eval Order COVID-19 PCR Hepatitis C Ab Screen 03/31/20 03/31/20 03/31/20 06:52 06:52 06:52 WBC 7.64 RBC 3.96 L Hgb 11.7 L Hct 36.6 L MCV 92.4 MCH 29.5 MCHC 32.0 RDW Std Deviation 47.9 H RDW Coeff of Leo 14.1 Plt Count 238 MPV 10.3 Immature Gran % (Auto) 0.1 Neut % (Auto) 51.9 Lymph % (Auto) 26.0 Edgar % (Auto) 8.9 Eos % (Auto) 12.7 Baso % (Auto) 0.4 Neut # (Auto) 3.96 Lymph # (Auto) 1.99 Edgar # (Auto) 0.68 H Eos # (Auto) 0.97 H Baso # (Auto) 0.03 Immature Gran # (Auto) 0.01 ESR PT INR Sodium 142 Potassium 3.4 L Chloride 111 H Carbon Dioxide 25 Anion Gap 6.0 BUN 24 H Creatinine 1.57 H Est Cr Clr Drug Dosing 45.1 Est GFR ( Amer) 51.0 Est GFR (Non-Af Amer) 44.0 BUN/Creatinine Ratio 15.0 Glucose 94 POC Glucose Estimat Average Glucose 189 Hemoglobin A1c 8.2 H Lactate Uric Acid Calcium 8.3 L Magnesium 2.2 Total Bilirubin AST ALT Alkaline Phosphatase Total Creatine Kinase Troponin I C-Reactive Protein Total Protein Albumin Globulin Albumin/Globulin Ratio Urine Color Urine Appearance Urine pH Ur Specific [place] Urine Protein Urine Glucose (UA) Urine Ketones Urine Blood Urine Nitrite Urine Bilirubin Urine Urobilinogen Ur Leukocyte Esterase Urine WBC (Auto) Urine RBC (Auto) U Hyaline Cast (Auto) U Epithel Cells (Auto) Urine Bacteria (Auto) COVID-19 Eval Order COVID-19 PCR Hepatitis C Ab Screen 03/31/20 03/31/20 03/31/20 06:52 07:48 11:33 WBC RBC Hgb Hct MCV MCH MCHC RDW Std Deviation RDW Coeff of Leo Plt Count MPV Immature Gran % (Auto) Neut % (Auto) Lymph % (Auto) Edgar % (Auto) Eos % (Auto) Baso % (Auto) Neut # (Auto) Lymph # (Auto) Edgar # (Auto) Eos # (Auto) Baso # (Auto) Immature Gran # (Auto) ESR PT INR Sodium Potassium Chloride Carbon Dioxide Anion Gap BUN Creatinine Est Cr Clr Drug Dosing Est GFR ( Amer) Est GFR (Non-Af Amer) BUN/Creatinine Ratio Glucose POC Glucose 101 H 109 H Estimat Average Glucose Hemoglobin A1c Lactate Uric Acid Calcium Magnesium Total Bilirubin AST ALT Alkaline Phosphatase Total Creatine Kinase Troponin I C-Reactive Protein Total Protein Albumin Globulin Albumin/Globulin Ratio Urine Color Urine Appearance Urine pH Ur Specific [place] Urine Protein Urine Glucose (UA) Urine Ketones Urine Blood Urine Nitrite Urine Bilirubin Urine Urobilinogen Ur Leukocyte Esterase Urine WBC (Auto) Urine RBC (Auto) U Hyaline Cast (Auto) U Epithel Cells (Auto) Urine Bacteria (Auto) COVID-19 Eval Order COVID-19 PCR Hepatitis C Ab Screen Neg
[2020-03-31] MEDS ORDERED: PHARMACY GLYCEMIC MGMT CONSULT PRN (11:17)
--- NOTE | 2020-03-31 11:36 | Pharmacy Report ---
Glycemic Control Consultation - Date of Service March 31, 2020 - Scope Scope: Glycemic Pharmacist consulted for glycemic control and to write orders per [facility] inpatient glycemic control protocol. - Objective Weight: 90 kg Accuchecks BSG (last 24hrs): 03/30/20 03/30/20 03/31/20 20:00 23:07 02:58 Glucose 293 H POC Glucose 185 H 116 H 03/31/20 03/31/20 06:52 07:48 Glucose 94 POC Glucose 101 H Laboratory Data (last 24hrs): 03/30/20 03/31/20 20:00 06:52 Potassium 3.7 3.4 L Carbon Dioxide 24 25 Anion Gap 8.0 6.0 Creatinine 1.85 H 1.57 H Est Cr Clr Drug Dosing 38.2 45.1 HbA1c: Hemoglobin A1c 8.2 % (4.5-5.6) H 03/31/20 06:52 - Recent Pertinent Medications Outpatient Anti-diabetic Regimen: * Lantus 45 units bid, metformin 500 bid, jardiance 10 mg daily * A1c = 8.2 % 03/31/20 Risk Factors for Insulin Resistance: * Steroids: starting pred 40 mg daily * Diet: t2dm - Assessment & Plan Assessment & Plan: ASSESSMENT: * 69 year old male with left lower extremity pain, concern for cellulitis. Started on zosyn empirically. Patient is type 2 diabetic. Pharmacy consulted to help with glycemic management. Patient starting prednisone today * Received Lantus 45 units early this morning (likely to make up home dose last night) and received 45 units this AM * Fasting BSG 101 mg/dL - likely will have scale for basal insulin for HS. Insulin regimen heavily basal weighted. Ideally 60/40 ratio preferred with prednisone/steroids of bolus/basal insulin * Already received home dose of insulin this AM, likely will use lower basal scale for HS PLAN FOR INPATIENT GLYCEMIC CONTROL: * Holding outpatient oral diabetes medications * Basal insulin * Lantus 45 Qam * Lantus 20-40 HS per scale * Bolus insulin * NovoLog per scale ACHS or Q6hrs while NPO * Goal Range: Low 110 mg/dL - High 140 mg/dL * Correction Factor: 20 mg/dL/unit * Nutritional / Prandial insulin per carb ratio of 1 unit per 7 grams CHO consumed * Please note that the plan above was derived based on current level of insulin resistance and hospital stress. These recommendations are appropriate for inpatient admission only. Plan of care upon discharge will need to be reassessed to avoid potential outpatient hypo/hyperglycemia. Thank you.
[2020-03-31] MEDS: predniSONE 20 MG TAB PO SCH (12:19)
--- NOTE | 2020-03-31 14:10 | Orthopedic Consultation ---
Date of Consultation March 31, 2020 Assessment & Plan (1) Left foot pain: Left foot pain and swelling. Uric acid elevated at 8.2 ESR 53, WBC 7.64, CRP 2.81 Pain control Blood cultures pending. Continue Prednisone and IV Zosyn. Does not appear to be an immediate surgical case at this point. Recommend continued course of medications and await Dr. Franklin's input. History of Present Illness Attending Physician: 69 yo male c/o 5 day hx of worsening left foot and ankle pain. Denies any injury or trauma. Has had foot/ ankle surgery in the past with hardware placement by Dr. Bueno. Was admitted by medicine for possible cellulitis, gout, infection. Ortho consulted for poss infection vs. gout. Allergies Allergy/AdvReac Type Severity Reaction Status Date / Time morphine AdvReac Severe Vomiting Verified 03/30/20 22:08 rosuvastatin [From Crestor] AdvReac Intermediate Cramping Verified 03/30/20 22:09 of the Muscles Home Medications Home Medications Medication Instructions Recorded Confirmed Type Lantammyus Solostar U-100 Insulin 45 unit SUBCUT BID 10/18/18 03/30/20 History cholecalciferol (vitamin D3) 1,000 unit PO QAM 10/18/18 03/30/20 History [Vitamin D3] ferrous sulfate 0 mg PO BID 10/18/18 03/30/20 History gabapentin 200 mg PO QPM 10/18/18 03/30/20 History pramipexole [Mirapex] 0.5 - 0.75 mg PO QPM 10/18/18 03/30/20 History finasteride 0 mg PO QAM 08/06/19 03/30/20 History metformin 500 mg PO BID 08/06/19 03/30/20 History warfarin 5 mg PO .Q MON 08/06/19 03/30/20 History amlodipine [Norvasc] 5 mg PO DAILY 03/30/20 03/30/20 History aspirin 81 mg PO DAILY 03/30/20 03/30/20 History chlorthalidone 25 mg PO DAILY 03/30/20 03/30/20 History empagliflozin [Jardiance] 10 mg PO DAILY 03/30/20 03/30/20 History warfarin 10 mg PO [id number] 03/30/20 03/30/20 History lisinopril 20 mg PO DAILY 03/31/20 03/31/20 History Patient History Medical History (Updated 03/31/20 @ 14:21 by Kelvin Caban) Anxiety Asthma in remission BPH (benign prostatic hyperplasia) BPH loc w urin obs/LUTS Broken rib r/t old sports injury, shows up on CXRs as abnormal, but was very remote (in college) and does not cause any pain. Cataract Chronic kidney disease Stage III. follows w/ dr. 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 Galloway, has not had symptoms beyond muscle twitches since the early Osteoarthritis Polyarthritis Prostate cancer screening Thyroid nodule Surgical History H/O arthroscopic knee surgery History of appendectomy History of arthroscopy of left knee History of cardiac cath 15 years ago - CP led to cath - [facility] - no stents/angioplasty, ruled indigestion - does not follow w/ cardio History of carpal tunnel release BL History of carpal tunnel surgery History of cystoscopy History of knee joint replacement x 2 rt knee History of repair of rotator cuff BL History of surgery LLE - hardware present History of tooth extraction History of total right knee replacement S/P appendectomy S/P rotator cuff repair Status post biopsy of thyroid gland benign Family History Daughter History of anesthesia reaction PONV Grandfather (Paternal) Family history of diabetes mellitus Mother Family history of diabetes mellitus Father Family history of diabetes mellitus Social History Smoking Status: Never smoker Second Hand Exposure: Yes ( SMOKES); Do You Dip or Chew Tobacco: Yes (1 can/week); Hx Alcohol Use: No Hx Substance Use: No Preferred Language: Bahamian Communication Ability: Effective Physician Office Nurse Required: No Beliefs That Will Affect Care: None marital status: Current Living Situation: Spouse current occupational status: retired Feels Safe at Home: Yes Physical Exam Physical Exam: Patient comfortable in his bed. A&Ox3. Afebrile. Left foot and ankle: Minimal erythema. Skin in tact, no sores or drainage. Minimal mid ankle active motion AT THE ANKLE Moderate swelling diffuse foot and ankle Tender medial and lateral ankle, dorsum foot and gret toe. Pulses in tact. Cap refill in tact. Results & Data ([facility]) Vital Signs (Past 12 Hours) Vital Signs Temp Pulse Pulse Pulse Resp BP BP 03/31/20 11:22 36.3 C L 58 L 18 161/79 H 03/31/20 07:48 60 03/31/20 07:00 36.3 C L 59 L 18 129/75 03/31/20 04:18 36.4 C L 67 18 148/77 H Pulse Ox 03/31/20 11:22 97 03/31/20 07:48 03/31/20 07:00 96 03/31/20 04:18 98
--- NOTE | 2020-03-31 15:13 | XRay Report ---
XR foot LT min 3V routine HISTORY: 69 years-old Male pain and swelling acute pain and swelling of the left foot COMPARISON: Left foot radiographs 03/30/2020 TECHNIQUE: 3 views of the left foot FINDINGS: Multifocal osteoarthritis, moderate to severe within the first interphalangeal and MTP joints. Promin ent subcortical cystic changes involve the medial aspect of the first interphalangeal joint, unchange d. There is moderate multidigit digit interphalangeal osteoarthritis redemonstrated. No acute fractur e, dislocation or opaque foreign body. Arterial calcifications. Lateral plate and screw fusion hardwa re of the distal fibula. Large plantar enthesophyte of the calcaneus. Mild dorsal forefoot soft tissu e swelling. IMPRESSION: 1. Mild dorsal forefoot soft tissue swelling without acute fracture or dislocation. 2. Multifocal osteoarthritis as above. ACT 112: Negative or not required by law. The above report was generated using voice recognition software. It may contain grammatical, syntax o r spelling errors. Electronically signed by: Hernandez Pate M.D. 03/31/2020 3:12 PM
[2020-03-31] MEDS ORDERED: WARFARIN SOD 10 MG TAB PO SCH (16:00)
--- NOTE | 2020-03-31 19:12 | Electrocardiogram Report ---
Test Reason : Blood Pressure : / mmHG Vent. Rate : 081 BPM Atrial Rate : 081 BPM P-R Int : 210 ms QRS Dur : 082 ms QT Int : 362 ms P-R-T Axes : 051 047 076 degrees QTc Int : 420 ms Sinus rhythm with 1st degree A-V block Otherwise normal ECG When compared with ECG of 06-AUG-2019 11:22, No significant change was found Confirmed by Moises Tristan ([id number]) on 03/31/2020 7:12:07 PM Referred By: REFERRED SELF Confirmed By:Peewee Tristan
[2020-03-31] MEDS: GABAPENTIN 100 MG CAP PO SCH (20:44)
[2020-03-31] MEDS: PRAMIPEXOLE DIHYDROCHLO 0.25 MG TAB PO SCH (20:44)
[2020-04-01] MEDS ORDERED: INSULIN ASPART 100 UNITS/ML 3 ML PEN SC SCH
[2020-04-01] MEDS: SODIUM CHLORIDE 0.9% 1000ML 1,000 ML IV SCH (06:09)
[2020-04-01] MEDS ORDERED: GLUCOSE 10 TABS/TUBE PO PRN (06:30)
[2020-04-01] MEDS ORDERED: DEXTROSE 50% 50 ML SYRINGE IV PRN (06:30)
[2020-04-01] MEDS ORDERED: GLUCOSE 40% GEL 15 GM TUBE PO PRN (06:30)
[2020-04-01] MEDS ORDERED: CARBOHYDRATES FOR HYPOGLYCEMIA PO PRN (06:30)
[2020-04-01] MEDS ORDERED: GLUCAGON FOR INJ 1 MG VIAL IM PRN (06:30)
[2020-04-01 07:50] LABS: Basophils # (auto) 0.02 K/uL (0-0.2); Basophils % (auto) 0.2 %; Eosinophils # (auto) 0.91 K/uL (0-0.5); Eosinophils % (auto) 10.5 %; Hematocrit (blood only) 35.4 % (42-52); Hemoglobin 11.5 g/dL (14.0-18.0); Immature Granulocytes # (auto) 0.02 K/uL (0.00-0.02); Immature Granulocytes % (auto) 0.2 %; Lymphocytes # (auto) 1.51 K/uL (1.2-3.4); Lymphocytes % (auto) 17.4 %; Mean Corpuscular Hemoglobin 29.7 pg (25-34); Mean Corpuscular Hgb Conc 32.5 g/dL (32-36); Mean Corpuscular Volume 91.5 fL (80-100); Mean Platelet Volume 10.2 fL (7.4-10.4); Monocytes # (auto) 0.73 K/uL (0.11-0.59); Monocytes % (auto) 8.4 %; Neutrophils # (auto) 5.47 K/uL (1.4-6.5); Neutrophils % (auto) 63.3 %; Platelet Count 221 K/uL (130-400); RDW Coefficient of Variation 14.1 % (11.5-14.5); RDW Standard Deviation 47.2 fL (36.4-46.3); Red Blood Count 3.87 M/uL (4.7-6.1); White Blood Count 8.66 K/uL (4.8-10.8)
[2020-04-01 08:07] LABS: INR 4.5 (0.9-1.1); Prothrombin Time 44.1 Seconds (9.0-12.0)
[2020-04-01 08:30] LABS: BUN Creatinine Ratio 13.1 (10-20); Calcium 8.8 mg/dl (8.5-10.1); Est GFR (Non-African American) 41.4; Potassium 3.9 mmol/L (3.5-5.1)
[2020-04-01] MEDS: HYDROmorphone INJ 0.5 MG/0.5 ML SYR IV PRN ×4 (08:58→18:43)
[2020-04-01] MEDS: PIPERACILLIN/TAZOBACTAM 3.375 GM in DEXTROSE 5% 100 ML IV SCH ×2 (09:00→15:10)
[2020-04-01] MEDS: FERROUS SULFATE 325 MG TAB PO SCH ×2 (09:03→20:39)
[2020-04-01] MEDS: FINASTERIDE 5 MG TAB PO SCH (09:04)
[2020-04-01] MEDS: ASPIRIN 81 MG ECTAB PO SCH (09:04)
[2020-04-01] MEDS: AMLODIPINE BESYLATE 5 MG TAB PO SCH (09:05)
[2020-04-01] MEDS: predniSONE 20 MG TAB PO SCH (09:05)
[2020-04-01] MEDS: CHOLECALCIFEROL 1,000 UNITS 25 MCG TAB PO SCH (09:05)
[2020-04-01] MEDS: INSULIN GLARGINE SOLOSTAR 100 UNITS/ML 3 ML PEN SQ SCH ×2 (09:06→20:44)
[2020-04-01] MEDS: INSULIN ASPART 100 UNITS/ML 3 ML PEN SC SCH ×4 (09:07→20:42)
--- NOTE | 2020-04-01 09:32 | Pharmacy Report ---
Pharmacy Glycemic Short Note 2 - Date of Service April 01, 2020 - Glycemic Short BSG Results (Last 24 hours): 03/31/20 03/31/20 03/31/20 11:33 16:58 20:36 Glucose POC Glucose 109 H 131 H 150 H 03/31/20 04/01/20 04/01/20 23:52 05:58 05:59 Glucose POC Glucose 110 H 65 L* 66 L* 04/01/20 04/01/20 04/01/20 06:15 06:23 07:23 Glucose 121 H POC Glucose 80 115 H 04/01/20 07:42 Glucose POC Glucose 127 H Outpatient Anti-diabetic Regimen: * Lantus 45 units SC BID * Metformin * Empagliflozin * A1c = 8.2 % 03/31/20 Risk Factors for Insulin Resistance: * Steroids:Prednisone 40 mg po daily * Diet: T2DM ASSESSMENT: 04/01/20 * A total of 90 units of insulin was administered yesterday, weighted heavily towards basal (75 units). * AM hypoglycemia this AM noted, likely 2nd too much basal insulin yesterday. While on steroids, bolus insulin is best to better control BSG's but this was being underutilized yesterday. * Will decrease basal insulin. Patient will likely require a tightening of CHO ratio at some point to compensate for the lower basal dose 03/31/20 * 69 year old male with left lower extremity pain, concern for cellulitis. S tarted on zosyn empirically. Patient is type 2 diabetic. Pharmacy consulted to help with glycemic management. Patient starting prednisone today * Received Lantus 45 units early this morning (likely to make up home dose last night) and received 45 units this AM * Fasting BSG 101 mg/dL - likely will have scale for basal insulin for HS. Insulin regimen heavily basal weighted. Ideally 60/40 ratio preferred with prednisone/steroids of bolus/basal insulin * Already received home dose of insulin this AM, likely will use lower basal scale for HS PLAN FOR INPATIENT GLYCEMIC CONTROL: * Hold outpatient oral diabetes medications * Basal insulin * Lantus 20-30 units SC BID * Bolus insulin * NovoLog per scale ACHS or Q6hrs while NPO * Goal Range: Low 110 mg/dL - High 140 mg/dL * Correction Factor: 20 mg/dL/unit * Nutritional / Prandial insulin per carb ratio of 1 unit per 7 grams CHO consumed
[2020-04-01] MEDS ORDERED: AMLODIPINE BESYLATE 5 MG TAB PO ONE (17:45)
--- NOTE | 2020-04-01 17:51 | Hospitalist Progress Note ---
Date of Service April 01, 2020 Assessment & Plan (1) Left foot pain: ASSESSMENT AND PLAN: This 69-year-old male presents with left lower extremity cellulitis. 1. Left Foot Cellulitis, likely secondary to acute gout attack - foot xray: no fractures - blood culture: pending - uric acid: elevated at 8.3 -Overall improved today Continue prednisone 40 mg today, 30 mg x 2 days tomorrow, etc. -Blood cultures: Pending Procalcitonin negative Zosyn to cephalexin If afebrile, cultures negative, DC antibiotics tomorrow Ortho consulted, patient recommendations 2. Hypertensive urgency. The patient is supposed to be on amlodipine, chlorthalidone, lisinopril. - hold Chlorthalidone and Lisinopril given elevated crea - increase amlodipine to 10 mg daily Continue lisinopril DC chlorthalidone as this can precipitate acute gout attack 3. Diabetic polyneuropathy, questionable multiple sclerosis. - Follows with neurology. PT and OT ordered 4. Diabetes. - Continue his Lantus. His baseline creatinine is 1.5 and nephrology was okay for metformin. - A1c 8.2 - hold Metformin ISS for now -We will order family living educator 5. Acute kidney injury on chronic kidney disease stage III, baseline creatinine around 1.4-1.5, presently with creatinine of 1.8. - gentle IV fluids Creatinine back to baseline at 1.6, DC fluids 6. Questionable MUGS recent lab was okay. Follow up with primary care physician. 7. History of deep venous thrombosis, on Coumadin. INR is supratherapeutic likely secondary to prednisone No bleeding Follow PT/INR. 8. Deep venous thrombosis prophylaxis. INR 4.5 Disposition lives with at home Ongoing PT/OT evaluation Admission and Anticipated Discharge Date Admission Date: March 31, 2020 Subjective Follow-up for left foot swelling, possible gout Seen sitting up in bed, comfortable, doing crossword puzzles Says he feels somewhat improved today Less pain on the left foot and joints of the right foot and right hand No chills Denies other symptoms Review of Systems Review of Systems: All systems reviewed & are unremarkable except as noted in HPI & below Physical Exam Physical Exam: General- oriented x 3, not in distress, speaks in sentences with no effort or accessory muscle use Eyes- anicteric Neck- no JVD Lungs- clear breath sounds bilaterally, no rales/wheezes Heart- normal rate, regular rhythm; no murmurs Abdomen- normal bowel sounds, nondistended, soft, nontender Extremities- Left foot: Less edema, tenderness, warmth, range of motion improved Right foot: Less edema, no warmth on the forefoot Right DIP index finger: Less swelling, better range of motion no pretibial edema, no calf tenderness Neuro- alert, oriented x 3; no gross focal neurologic deficits Skin- warm & dry Results & Data Results & Data ([facility]) Vital Signs (Past 12 Hours) Vital Signs Temp Pulse Pulse Resp BP Pulse Ox 04/01/20 15:33 36.7 C 77 16 187/88 H 96 04/01/20 15:03 65 04/01/20 11:56 36.5 C 71 16 164/82 H 97 04/01/20 07:20 36.3 C L 62 18 146/72 H 99 Laboratory Results Laboratory Results - last 24 hr 03/31/20 03/31/20 04/01/20 20:36 23:52 05:58 WBC RBC Hgb Hct MCV MCH MCHC RDW Std Deviation RDW Coeff of Leo Plt Count MPV Immature Gran % (Auto) Neut % (Auto) Lymph % (Auto) Elliott % (Auto) Eos % (Auto) Baso % (Auto) Neut # (Auto) Lymph # (Auto) Elliott # (Auto) Eos # (Auto) Baso # (Auto) Immature Gran # (Auto) PT INR Sodium Potassium Chloride Carbon Dioxide Anion Gap BUN Creatinine Est Cr Clr Drug Dosing Est GFR ( Amer) Est GFR (Non-Af Amer) BUN/Creatinine Ratio Glucose POC Glucose 150 H 110 H 65 L* Calcium Procalcitonin Rheumatoid Factor 04/01/20 04/01/20 04/01/20 05:59 06:15 06:23 WBC RBC Hgb Hct MCV MCH MCHC RDW Std Deviation RDW Coeff of Leo Plt Count MPV Immature Gran % (Auto) Neut % (Auto) Lymph % (Auto) Elliott % (Auto) Eos % (Auto) Baso % (Auto) Neut # (Auto) Lymph # (Auto) Elliott # (Auto) Eos # (Auto) Baso # (Auto) Immature Gran # (Auto) PT INR Sodium Potassium Chloride Carbon Dioxide Anion Gap BUN Creatinine Est Cr Clr Drug Dosing Est GFR ( Amer) Est GFR (Non-Af Amer) BUN/Creatinine Ratio Glucose POC Glucose 66 L* 80 115 H Calcium Procalcitonin Rheumatoid Factor 04/01/20 04/01/20 04/01/20 07:23 07:23 07:23 WBC 8.66 RBC 3.87 L Hgb 11.5 L Hct 35.4 L MCV 91.5 MCH 29.7 MCHC 32.5 RDW Std Deviation 47.2 H RDW Coeff of Leo 14.1 Plt Count 221 MPV 10.2 Immature Gran % (Auto) 0.2 Neut % (Auto) 63.3 Lymph % (Auto) 17.4 Elliott % (Auto) 8.4 Eos % (Auto) 10.5 Baso % (Auto) 0.2 Neut # (Auto) 5.47 Lymph # (Auto) 1.51 Elliott # (Auto) 0.73 H Eos # (Auto) 0.91 H Baso # (Auto) 0.02 Immature Gran # (Auto) 0.02 PT 44.1 H INR 4.5 H Sodium Potassium Chloride Carbon Dioxide Anion Gap BUN Creatinine Est Cr Clr Drug Dosing Est GFR ( Amer) Est GFR (Non-Af Amer) BUN/Creatinine Ratio Glucose POC Glucose Calcium Procalcitonin Rheumatoid Factor Pending 04/01/20 04/01/20 04/01/20 07:23 07:42 10:55 WBC RBC Hgb Hct MCV MCH MCHC RDW Std Deviation RDW Coeff of Leo Plt Count MPV Immature Gran % (Auto) Neut % (Auto) Lymph % (Auto) Elliott % (Auto) Eos % (Auto) Baso % (Auto) Neut # (Auto) Lymph # (Auto) Elliott # (Auto) Eos # (Auto) Baso # (Auto) Immature Gran # (Auto) PT INR Sodium 140 Potassium 3.9 Chloride 109 H Carbon Dioxide 25 Anion Gap 7.0 BUN 22 H Creatinine 1.65 H Est Cr Clr Drug Dosing 43.0 Est GFR ( Amer) 48.0 Est GFR (Non-Af Amer) 41.4 BUN/Creatinine Ratio 13.1 Glucose 121 H POC Glucose 127 H Calcium 8.8 Procalcitonin < 0.05 Rheumatoid Factor 04/01/20 04/01/20 11:46 16:43 WBC RBC Hgb Hct MCV MCH MCHC RDW Std Deviation RDW Coeff of Leo Plt Count MPV Immature Gran % (Auto) Neut % (Auto) Lymph % (Auto) Elliott % (Auto) Eos % (Auto) Baso % (Auto) Neut # (Auto) Lymph # (Auto) Elliott # (Auto) Eos # (Auto) Baso # (Auto) Immature Gran # (Auto) PT INR Sodium Potassium Chloride Carbon Dioxide Anion Gap BUN Creatinine Est Cr Clr Drug Dosing Est GFR ( Amer) Est GFR (Non-Af Amer) BUN/Creatinine Ratio Glucose POC Glucose 102 H 198 H Calcium Procalcitonin Rheumatoid Factor
[2020-04-01] MEDS: cephALEXin 500 MG CAP PO SCH (20:39)
[2020-04-01] MEDS: GABAPENTIN 100 MG CAP PO SCH (20:40)
[2020-04-01] MEDS: PRAMIPEXOLE DIHYDROCHLO 0.25 MG TAB PO SCH (20:40)
[2020-04-02 07:48] LABS: Basophils # (auto) 0.03 K/uL (0-0.2); Basophils % (auto) 0.3 %; Eosinophils # (auto) 0.42 K/uL (0-0.5); Eosinophils % (auto) 3.6 %; Hematocrit (blood only) 36.9 % (42-52); Hemoglobin 12.2 g/dL (14.0-18.0); Immature Granulocytes # (auto) 0.04 K/uL (0.00-0.02); Immature Granulocytes % (auto) 0.3 %; Lymphocytes # (auto) 2.16 K/uL (1.2-3.4); Lymphocytes % (auto) 18.8 %; Mean Corpuscular Hemoglobin 29.9 pg (25-34); Mean Corpuscular Hgb Conc 33.1 g/dL (32-36); Mean Corpuscular Volume 90.4 fL (80-100); Mean Platelet Volume 10.1 fL (7.4-10.4); Monocytes % (auto) 8.7 %; Neutrophils # (auto) 7.86 K/uL (1.4-6.5); Neutrophils % (auto) 68.3 %; Platelet Count 254 K/uL (130-400); RDW Coefficient of Variation 13.8 % (11.5-14.5); RDW Standard Deviation 45.7 fL (36.4-46.3); Red Blood Count 4.08 M/uL (4.7-6.1); White Blood Count 11.51 K/uL (4.8-10.8)
[2020-04-02 07:59] LABS: INR 3.4 (0.9-1.1); Prothrombin Time 33.6 Seconds (9.0-12.0)
[2020-04-02 08:20] LABS: Creatinine Clr Calc Pharmacy 48.2 ml/min; Est GFR (African American) 55.2; Est GFR (Non-African American) 47.7; Potassium 3.5 mmol/L (3.5-5.1)
[2020-04-02] MEDS: FERROUS SULFATE 325 MG TAB PO SCH ×2 (08:40→20:43)
[2020-04-02] MEDS: INSULIN ASPART 100 UNITS/ML 3 ML PEN SC SCH ×4 (08:40→20:46)
[2020-04-02] MEDS: cephALEXin 500 MG CAP PO SCH (08:41)
[2020-04-02] MEDS: INSULIN GLARGINE SOLOSTAR 100 UNITS/ML 3 ML PEN SQ SCH ×2 (08:42→20:45)
[2020-04-02] MEDS: AMLODIPINE BESYLATE 5 MG TAB PO SCH (08:42)
[2020-04-02] MEDS: lisinopriL 20 MG TAB PO SCH (08:43)
[2020-04-02] MEDS: predniSONE 10 MG TABLET PO SCH (08:43)
[2020-04-02] MEDS: FINASTERIDE 5 MG TAB PO SCH (08:43)
[2020-04-02] MEDS: CHOLECALCIFEROL 1,000 UNITS 25 MCG TAB PO SCH (08:43)
[2020-04-02] MEDS: HYDROmorphone INJ 0.5 MG/0.5 ML SYR IV PRN (09:45)
--- NOTE | 2020-04-02 11:47 | Pharmacy Report ---
Pharmacy Glycemic Short Note 2 - Date of Service April 02, 2020 - Glycemic Short BSG Results (Last 24 hours): 04/01/20 04/01/20 04/01/20 11:46 16:43 20:43 Glucose POC Glucose 102 H 198 H 188 H 04/02/20 04/02/20 04/02/20 07:22 07:30 11:41 Glucose 68 L POC Glucose 72 127 H Outpatient Anti-diabetic Regimen: * Lantus 45 units SC BID * Metformin * Empagliflozin * A1c = 8.2 % 03/31/20 Risk Factors for Insulin Resistance: * Steroids:Prednisone 40 mg po daily * Diet: T2DM ASSESSMENT: 04/02/20: * Pt has received 89 units of insulin over the past 24hrs * 60 units of basal {Lantus} + 29 units of bolus {NovoLog} * BSGs 84-452-384-188-72-127 mg/dl * Pt with LOW AM fasting yesterday - basal insulin decreased accordingly. AM fasting BSG slightly below goal range for inpatient targets - will decrease dose further today. * Prednisone tapered from 40mg daily to 30mg daily - this should improve glycemic control with step down in steroid dosing * Will loosen CR as steroids have their most profound effect on post-prandial hyperglycemia. 04/01/20 * A total of 90 units of insulin was administered yesterday, weighted heavily towards basal (75 units). * AM hypoglycemia this AM noted, likely 2nd too much basal insulin yesterday. While on steroids, bolus insulin is best to better control BSG's but this was being underutilized yesterday. * Will decrease basal insulin. Patient will likely require a tightening of CHO ratio at some point to compensate for the lower basal dose 03/31/20 * 69 year old male with left lower extremity pain, concern for cellulitis. Started on zosyn empirically. Patient is type 2 diabetic. Pharmacy consulted to help with glycemic management. Patient starting prednisone today * Received Lantus 45 units early this morning (likely to make up home dose last night) and received 45 units this AM * Fasting BSG 101 mg/dL - likely will have scale for basal insulin for HS. Insulin regimen heavily basal weighted. Ideally 60/40 ratio preferred with prednisone/steroids of bolus/basal insulin * Already received home dose of insulin this AM, likely will use lower basal scale for HS PLAN FOR INPATIENT GLYCEMIC CONTROL: * Hold outpatient oral diabetes medications * Basal insulin: continue - patient will receive lower doses today based on BSG scale * Lantus 20-30 units SC BID * Bolus insulin: loosen CR * NovoLog per scale ACHS or Q6hrs while NPO * Goal Range: Low 110 mg/dL - High 140 mg/dL * Correction Factor: 20 mg/dL/unit * Nutritional / Prandial insulin per carb ratio of 1 unit per 8 grams CHO consumed
[2020-04-02] MEDS: TRAMADOL HCL 50 MG TABLET PO PRN (15:57)
--- NOTE | 2020-04-02 18:56 | Hospitalist Progress Note ---
Date of Service April 02, 2020 Assessment & Plan (1) Left foot pain: ASSESSMENT AND PLAN: This 69-year-old male presents with left lower extremity cellulitis. 1. Left Foot swelling, likely secondary to acute gout attack - foot xray: no fractures - blood culture: Negative - uric acid: elevated at 8.3 -Continues to improve Continue prednisone taper -Blood cultures: Pending Procalcitonin negative DC antibiotics Ortho consulted, EGD recommendations 2. Hypertensive urgency. The patient is supposed to be on amlodipine, chlorthalidone, lisinopril. - hold Chlorthalidone and Lisinopril given elevated crea - increase amlodipine to 10 mg daily Continue lisinopril DC chlorthalidone as this can precipitate acute gout attack 3. Diabetic polyneuropathy, questionable multiple sclerosis. - Follows with neurology. PT and OT ordered 4. Diabetes. - Continue his Lantus. His baseline creatinine is 1.5 and nephrology was okay for metformin. - A1c 8.2 - hold Metformin ISS for now -wind energy project manager consulted 5. Acute kidney injury on chronic kidney disease stage III, baseline creatinine around 1.4-1.5, presently with creatinine of 1.8. - gentle IV fluids Creatinine back to baseline at 1.6, DC fluids 6. Questionable MUGS recent lab was okay. Follow up with primary care physician. 7. History of deep venous thrombosis, on Coumadin. INR is supratherapeutic likely secondary to prednisone No bleeding INR 3.4 Check INR tomorrow 8. Deep venous thrombosis prophylaxis. INR 3.4 Disposition lives with at home Ongoing PT/OT evaluation Admission and Anticipated Discharge Date Admission Date: March 31, 2020 Subjective Follow-up for acute gout attack Seen sitting up in bed, comfortable, not in distress Continues to feel improved, pain improving, controlled with analgesics Denies fevers or chills No other symptoms Review of Systems Review of Systems: All systems reviewed & are unremarkable except as noted in HPI & below Physical Exam Physical Exam: General- oriented x 3, not in distress, speaks in sentences with no effort or accessory muscle use Eyes- anicteric Neck- no JVD Lungs- clear BS bilaterally, no crackles or wheezing Heart- normal rate, regular rhythm; no murmurs Abdomen- normal bowel sounds, nondistended, soft, nontender Extremities- Right hand: DIP swelling continues to improve Left foot: Trace edema, no warmth, minimal tenderness, better range of motion Right foot: Essentially normal no pretibial edema, no calf tenderness Neuro- alert, oriented x 3; no gross focal neurologic deficits Skin- warm & dry Results & Data Results & Data ([facility]) Vital Signs (Past 12 Hours) Vital Signs Temp Pulse Pulse Resp BP Pulse Ox 04/02/20 15:46 60 04/02/20 11:54 36.5 C 65 16 167/86 H 97 04/02/20 09:14 56 L 04/02/20 07:20 36.7 C 64 16 157/81 H 98
[2020-04-02] MEDS: GABAPENTIN 100 MG CAP PO SCH (20:44)
[2020-04-02] MEDS: PRAMIPEXOLE DIHYDROCHLO 0.25 MG TAB PO SCH (20:44)
[2020-04-03] MEDS: TRAMADOL HCL 50 MG TABLET PO PRN ×2 (00:24→08:13)
[2020-04-03 07:46] LABS: Basophils # (auto) 0.03 K/uL (0-0.2); Basophils % (auto) 0.2 %; Eosinophils # (auto) 0.38 K/uL (0-0.5); Hemoglobin 12.6 g/dL (14.0-18.0); Immature Granulocytes # (auto) 0.05 K/uL (0.00-0.02); Immature Granulocytes % (auto) 0.4 %; Lymphocytes # (auto) 2.78 K/uL (1.2-3.4); Lymphocytes % (auto) 21.8 %; Mean Corpuscular Hemoglobin 30.1 pg (25-34); Mean Corpuscular Hgb Conc 33.2 g/dL (32-36); Mean Corpuscular Volume 90.7 fL (80-100); Mean Platelet Volume 10.2 fL (7.4-10.4); Monocytes # (auto) 1.16 K/uL (0.11-0.59); Monocytes % (auto) 9.1 %; Neutrophils # (auto) 8.33 K/uL (1.4-6.5); Neutrophils % (auto) 65.5 %; Platelet Count 299 K/uL (130-400); RDW Coefficient of Variation 13.8 % (11.5-14.5); RDW Standard Deviation 45.6 fL (36.4-46.3); Red Blood Count 4.19 M/uL (4.7-6.1); White Blood Count 12.73 K/uL (4.8-10.8)
[2020-04-03 07:53] LABS: INR 1.9 (0.9-1.1); Prothrombin Time 19.8 Seconds (9.0-12.0)
[2020-04-03] MEDS: CHOLECALCIFEROL 1,000 UNITS 25 MCG TAB PO SCH (07:59)
[2020-04-03] MEDS: lisinopriL 20 MG TAB PO SCH (07:59)
[2020-04-03] MEDS: FERROUS SULFATE 325 MG TAB PO SCH ×2 (08:00→21:04)
[2020-04-03] MEDS: predniSONE 10 MG TABLET PO SCH (08:00)
[2020-04-03] MEDS: AMLODIPINE BESYLATE 5 MG TAB PO SCH (08:00)
[2020-04-03] MEDS: FINASTERIDE 5 MG TAB PO SCH (08:00)
[2020-04-03] MEDS: INSULIN GLARGINE SOLOSTAR 100 UNITS/ML 3 ML PEN SQ SCH ×2 (08:01→21:05)
[2020-04-03] MEDS: INSULIN ASPART 100 UNITS/ML 3 ML PEN SC SCH ×4 (08:01→21:06)
[2020-04-03 08:19] LABS: BUN Creatinine Ratio 16.9 (10-20); Calcium 8.9 mg/dl (8.5-10.1); Creatinine Clr Calc Pharmacy 39.4 ml/min; Est GFR (African American) 43.5; Est GFR (Non-African American) 37.6; Potassium 3.7 mmol/L (3.5-5.1)
[2020-04-03] MEDS: HYDROCODONE/ACETAMOPHEN 5/325MG TAB PO PRN ×2 (11:12→21:31)
[2020-04-03] MEDS: HYDROmorphone INJ 0.5 MG/0.5 ML SYR IV PRN (16:08)
--- NOTE | 2020-04-03 17:33 | Hospitalist Progress Note ---
Date of Service April 03, 2020 Assessment & Plan (1) Left foot pain: ASSESSMENT AND PLAN: This 69-year-old male presents with left lower extremity cellulitis. 1. Left Foot swelling, likely secondary to acute gout attack - foot xray: no fractures - blood culture: Negative - uric acid: elevated at 8.3 -Continues to improve Continue prednisone taper Ice pack on the left foot ordered Continue PRN [place], tramadol, encouraged to use p.o. analgesics preparation for discharge hopefully by tomorrow Procalcitonin negative DC antibiotics Ortho consulted, appreciate the recommendations 2. Hypertensive urgency. - The patient is supposed to be on amlodipine, chlorthalidone, lisinopril. - hold Chlorthalidone and Lisinopril given elevated crea - increase amlodipine to 10 mg daily Continue lisinopril DC chlorthalidone as this can precipitate acute gout attack 3. Diabetic polyneuropathy, questionable multiple sclerosis. - Follows with neurology. PT and OT ordered 4. Diabetes. - Continue his Lantus. His baseline creatinine is 1.5 and nephrology was okay for metformin. - A1c 8.2 - hold Metformin ISS for now -certified adaptive physical educator consulted 5. Acute kidney injury on chronic kidney disease stage III, baseline creatinine around 1.4-1.5, presently with creatinine of 1.8. - gentle IV fluids Creatinine back to baseline at 1.6, DC fluids 6. Questionable MUGS recent lab was okay. Follow up with primary care physician. 7. History of deep venous thrombosis, on Coumadin. INR is supratherapeutic likely secondary to prednisone No bleeding INR 1.9 Coumadin 7.5mg po daily repeat INR in AM 8. Deep venous thrombosis prophylaxis. coumadin, INR 1.9 Disposition lives with at home Ongoing PT/OT evaluation Admission and Anticipated Discharge Date Admission Date: March 31, 2020 Subjective Follow-up for acute gout attack Seen resting in bed, not in distress Unfortunately, patient's left foot was hit by roommates hospital bed overnight Left foot pain increased today Otherwise other joints improving in terms of pain and swelling Denies fever or chills No other symptoms Review of Systems Review of Systems: All systems reviewed & are unremarkable except as noted in HPI & below Physical Exam Physical Exam: General- oriented x 3, not in distress, speaks in sentences with no effort or accessory muscle use Eyes- anicteric Neck- no JVD Lungs- clear BS bilaterally, no crackles no wheezing Heart- normal rate, regular rhythm; no murmurs Abdomen- normal bowel sounds, nondistended, soft, nontender Extremities- Right DIP joint index finger: Positive small tophi-like structure, but no tenderness, redness or warmth, full range of motion Left foot: Minimal edema, no tenderness, in the forefoot and ankle, patient motion improving Right Foot essentially normal no pretibial edema, no calf tenderness Neuro- alert, oriented x 3; no gross focal neurologic deficits Skin- warm & dry Results & Data Results & Data ([facility]) Vital Signs (Past 12 Hours) Vital Signs Temp Pulse Pulse Resp BP Pulse Ox 04/03/20 16:00 72 04/03/20 15:00 36.3 C L 67 18 142/71 H 97 04/03/20 08:54 77 04/03/20 07:29 36.7 C 60 18 147/86 H 96 Laboratory Results Laboratory Results - last 24 hr 04/02/20 04/03/20 04/03/20 20:30 07:11 07:11 WBC 12.73 H RBC 4.19 L Hgb 12.6 L Hct 38.0 L MCV 90.7 MCH 30.1 MCHC 33.2 RDW Std Deviation 45.6 RDW Coeff of Leo 13.8 Plt Count 299 MPV 10.2 Immature Gran % (Auto) 0.4 Neut % (Auto) 65.5 Lymph % (Auto) 21.8 [place] % (Auto) 9.1 Eos % (Auto) 3.0 Baso % (Auto) 0.2 Neut # (Auto) 8.33 H Lymph # (Auto) 2.78 [place] # (Auto) 1.16 H Eos # (Auto) 0.38 Baso # (Auto) 0.03 Immature Gran # (Auto) 0.05 H PT 19.8 H INR 1.9 H Sodium Potassium Chloride Carbon Dioxide Anion Gap BUN Creatinine Est Cr Clr Drug Dosing Est GFR ( Amer) Est GFR (Non-Af Amer) BUN/Creatinine Ratio Glucose POC Glucose 204 H Calcium 04/03/20 04/03/20 04/03/20 07:11 07:36 11:55 WBC RBC Hgb Hct MCV MCH MCHC RDW Std Deviation RDW Coeff of Leo Plt Count MPV Immature Gran % (Auto) Neut % (Auto) Lymph % (Auto) [place] % (Auto) Eos % (Auto) Baso % (Auto) Neut # (Auto) Lymph # (Auto) [place] # (Auto) Eos # (Auto) Baso # (Auto) Immature Gran # (Auto) PT INR Sodium 140 Potassium 3.7 Chloride 106 Carbon Dioxide 25 Anion Gap 9.0 BUN 30 H Creatinine 1.79 H D Est Cr Clr Drug Dosing 39.4 Est GFR ( Amer) 43.5 Est GFR (Non-Af Amer) 37.6 BUN/Creatinine Ratio 16.9 Glucose 115 H POC Glucose 105 H 180 H Calcium 8.9 04/03/20 16:46 WBC RBC Hgb Hct MCV MCH MCHC RDW Std Deviation RDW Coeff of Leo Plt Count MPV Immature Gran % (Auto) Neut % (Auto) Lymph % (Auto) [place] % (Auto) Eos % (Auto) Baso % (Auto) Neut # (Auto) Lymph # (Auto) [place] # (Auto) Eos # (Auto) Baso # (Auto) Immature Gran # (Auto) PT INR Sodium Potassium Chloride Carbon Dioxide Anion Gap BUN Creatinine Est Cr Clr Drug Dosing Est GFR ( Amer) Est GFR (Non-Af Amer) BUN/Creatinine Ratio Glucose POC Glucose 248 H Calcium
[2020-04-03] MEDS ORDERED: WARFARIN SOD 7.5 MG TAB PO SCH (18:00)
[2020-04-03] MEDS: PRAMIPEXOLE DIHYDROCHLO 0.25 MG TAB PO SCH (21:03)
[2020-04-03] MEDS: GABAPENTIN 100 MG CAP PO SCH (21:03)
[2020-04-04 07:28] LABS: INR 1.3 (0.9-1.1); Prothrombin Time 13.6 Seconds (9.0-12.0)
[2020-04-04] MEDS: predniSONE 10 MG TABLET PO SCH (07:40)
[2020-04-04] MEDS: FINASTERIDE 5 MG TAB PO SCH (07:40)
[2020-04-04] MEDS: lisinopriL 20 MG TAB PO SCH (07:40)
[2020-04-04] MEDS: AMLODIPINE BESYLATE 5 MG TAB PO SCH (07:40)
[2020-04-04] MEDS: CHOLECALCIFEROL 1,000 UNITS 25 MCG TAB PO SCH (07:40)
[2020-04-04] MEDS: FERROUS SULFATE 325 MG TAB PO SCH (07:41)
[2020-04-04] MEDS: INSULIN GLARGINE SOLOSTAR 100 UNITS/ML 3 ML PEN SQ SCH (08:06)
[2020-04-04] MEDS: INSULIN ASPART 100 UNITS/ML 3 ML PEN SC SCH ×2 (08:06→11:57)
[2020-04-04] MEDS ORDERED: ENOXAPARIN INJ 40 MG/0.4 ML SYR SQ SCH (09:00)
[2020-04-04] MEDS: HYDROCODONE/ACETAMOPHEN 5/325MG TAB PO PRN (11:56)
--- NOTE | 2020-04-04 12:43 | Hospitalist Progress Note ---
Date of Service April 04, 2020 Assessment & Plan (1) Left foot pain: ASSESSMENT AND PLAN: This 69-year-old male presents with left lower extremity cellulitis. 1. Left Foot swelling, likely secondary to acute gout attack - foot xray: no fractures - blood culture: Negative - uric acid: elevated at 8.3 -Continues to improve Continue prednisone taper 30 mg x 1 day 20 mg x 2 days 10 mg x2 days Then stop PRN [place] Stop chlorthalidone Procalcitonin negative DC antibiotics Ortho consulted, appreciate the recommendations 2. Hypertensive urgency. - The patient is supposed to be on amlodipine, chlorthalidone, lisinopril. - hold Chlorthalidone and Lisinopril given elevated crea - increased amlodipine to 10 mg daily Continue lisinopril DC chlorthalidone as this can precipitate acute gout attack -Follow-up BP and titrate meds as an outpatient 3. Diabetic polyneuropathy, questionable multiple sclerosis. - Follows with neurology. -Ambulating well in the hallways Prefers to return home Instructed to use rolling walker at all times 4. Diabetes. - Continue his Lantus. His baseline creatinine is 1.5 and nephrology was okay for metformin. - A1c 8.2 -Continue usual regimen Follow-up as outpatient -extension educator consulted 5. Acute kidney injury on chronic kidney disease stage III, baseline creatinine around 1.4-1.5, presently with creatinine of 1.8. - gentle IV fluids Creatinine back to baseline at 1.6, DC fluids 6. Questionable MUGS recent lab was okay. Follow up with primary care physician. 7. History of deep venous thrombosis, on Coumadin. INR is supratherapeutic likely secondary to prednisone No bleeding INR 1. 3 on discharge day, 04/04/2020 Advised to take Coumadin 10 mg p.o. daily Coumadin clinic to call patient tomorrow 04/05/2020 for further advice Disposition lives with at home DC home Follow-up with primary care physician next week per discharge instructions Admission and Anticipated Discharge Date Admission Date: March 31, 2020 Subjective Follow-up for acute gout attack Seen sitting up in bed, comfortable, not in distress Good spirits States he feels much better today Able to ambulate in the hallways yesterday Pain is much better No fevers or chills No bleeding No other symptoms States that he is ready and would like to be discharged today Review of Systems Review of Systems: All systems reviewed & are unremarkable except as noted in HPI & below Physical Exam Physical Exam: General- oriented x 3, not in distress, speaks in sentences with no effort or accessory muscle use Eyes- anicteric Neck- no JVD Lungs- clear breath sounds bilaterally, no wheezing no crackles Heart- normal rate, regular rhythm; no murmurs Abdomen- normal bowel sounds, nondistended, soft, nontender Extremities- Right hand, no edema/warmth/tenderness Right foot: Essentially normal Left foot: Edema, erythema, warmth has resolved, minimal tenderness Full range of motion in all joints no pretibial edema, no calf tenderness Neuro- alert, oriented x 3; no gross focal neurologic deficits Skin- warm & dry Results & Data Results & Data ([facility]) Vital Signs (Past 12 Hours) Vital Signs Temp Pulse Pulse Resp BP Pulse Ox 04/04/20 11:00 36.6 C 64 18 148/77 H 97 04/04/20 08:00 52 L 04/04/20 07:00 36.6 C 56 L 18 144/68 H 92 04/04/20 03:39 36.8 C 57 L 18 132/78 96 Laboratory Results Laboratory Results - last 24 hr 04/03/20 04/03/20 04/04/20 16:46 20:12 06:44 PT 13.6 H INR 1.3 H POC Glucose 248 H 288 H 04/04/20 04/04/20 07:36 11:45 PT INR POC Glucose 110 H 130 H
--- NOTE | 2020-04-04 13:00 | Discharge Summary ---
Date of Service April 04, 2020 Admission HPI Per Admitting Provider CHIEF COMPLAINT: Right lower extremity pain and weakness. 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 The patient says he could not feel his left lower extremity for a few days, then now he has developed severe pain and some erythema in the left foot region. He says he could not put weight on the leg. He also has diabetic polyneuropathy and his balance is not that great.Also he stopped taking lisinopril and chlorthalidone for a few weeks now because he does not have any money to buy the medications. He says blood sugars are running okay at home. He also gets some lower chest pain, attributes this to acid reflux on and off. Denies any shortness of breath, no cough. He had a low-grade fever in the last week. Denies any headache, no blurred vision, no earache. He has a runny nose for a couple of weeks. He thinks he has had loss of sense of smell and taste for a few days, but did not travel and exposure to COVID patients. His COVID test was negative in the ER. He has no difficulty swallowing. Appetite is okay. Normal bowel and bladder movements. No hematuria, no black stools or blood in the stools. Currently resting comfortably. Blood pressure is running high. Admission Exam Per Admitting Provider GENERAL: The patient is of moderate build, not in acute distress. VITAL SIGNS: Temperature 36.9, pulse 80, respiratory rate 18, blood pressure 203/85, oxygen 96% on room air. HEENT: No pallor, no icterus. Pupils equal, round, and reactive to light. NECK: No JVD, no neck masses. CARDIOVASCULAR: S1, S2 heard, regular rate and rhythm, no murmur, no gallop. RESPIRATORY SYSTEM: Normal AP diameter. No accessory muscle use. No wheezing, no crackles. ABDOMEN: Soft, bowel sounds present. Mild abdominal discomfort. No guarding. No rigidity. CENTRAL NERVOUS SYSTEM: Cranial nerves II-XII grossly intact. Nonfocal. EXTREMITIES: Left foot region and left big toe region is somewhat erythematous and tender to palpation. Principal Diagnosis ACUTE GOUT ATTACK Discharge Exam General- oriented x 3, not in distress, speaks in sentences with no effort or accessory muscle use Eyes- anicteric Neck- no JVD Lungs- clear breath sounds bilaterally, no wheezing no crackles Heart- normal rate, regular rhythm; no murmurs Abdomen- normal bowel sounds, nondistended, soft, nontender Extremities- Right hand, no edema/warmth/tenderness Right foot: Essentially normal Left foot: Edema, erythema, warmth has resolved, minimal tenderness Full range of motion in all joints no pretibial edema, no calf tenderness Neuro- alert, oriented x 3; no gross focal neurologic deficits Skin- warm & dry Discharge Data Allergies Allergy/AdvReac Type Severity Reaction Status Date / Time morphine AdvReac Severe Vomiting Verified 03/30/20 22:08 rosuvastatin [From Crestor] AdvReac Intermediate Cramping Verified 03/30/20 22:09 of the Muscles Consultations 03/31/20 02:11 Consult Case Management - Discharge Planning Routine 03/31/20 11:13 Consult Orthopedic Surgery Routine Ordered Studies 03/30/2020 Left Foot Xray: FINDINGS: Distal left fibular plate and screw fixation is partially imaged. No acute fracture is noted within the left foot. Tarsometatarsal joints are intact. There is moderate plantar calcaneal spurring. Moderate vascular calcification is noted. There is no evidence for osteomyelitis within the left foot. Note is made of moderate to severe osteoarthritis within multiple articulations of the left foot, most pronounced within the articulations of the first digit. IMPRESSION: 1. No acute fracture. No evidence for osteomyelitis within the left foot. 2. 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 03/30/20 US venous doppler LE BI Urgent FINDINGS: There is normal compressibility, flow, and augmentation within the bilateral lower extremity deep venous systems. IMPRESSION: No DVT within the right or left lower extremity. Hospital Course (1) Left foot pain: ASSESSMENT AND PLAN: This 69-year-old male presents with left lower extremity cellulitis. 1. Left Foot swelling, likely secondary to acute gout attack - foot xray: no fractures - blood culture: Negative - uric acid: elevated at 8.3 - given Prednisone taper starting at 40mg x 2 days, then 30mg x 2 days, etc. - Continues to improve Continue prednisone taper 30 mg x 1 day 20 mg x 2 days 10 mg x2 days Then stop PRN Conrad Stop chlorthalidone Procalcitonin negative septic arthritis ruled out, antibiotics discontinued Ortho consulted 2. Hypertensive urgency. - The patient is supposed to be on amlodipine, chlorthalidone, lisinopril. - held Chlorthalidone and Lisinopril given elevated crea - increased amlodipine to 10 mg daily Continue lisinopril DC chlorthalidone as this can precipitate acute gout attack -Follow-up BP and titrate meds as an outpatient 3. Diabetic polyneuropathy, questionable multiple sclerosis. - Follows with neurology. -Ambulating well in the hallways Prefers to return home Instructed to use rolling walker at all times 4. Diabetes. - A1c 8.2 - increase Lantus to 48 units BID from 45 units BID unable to afford Jardiance, has been off Jardiance for a month continue outpatient close ff up -staff development educator consulted 5. Acute kidney injury on chronic kidney disease stage III, baseline creatinine around 1.4-1.5, presently with creatinine of 1.8. - given gentle IV fluids Creatinine back to baseline at 1.6 6. Questionable MUGS recent lab was okay. Follow up with primary care physician. 7. History of deep venous thrombosis, on Coumadin. INR reached 4.5 INR is supratherapeutic likely secondary to prednisone No bleeding INR 1. 3 on discharge day, 04/04/2020 Advised to take Coumadin 10 mg p.o. daily Coumadin clinic to call patient tomorrow 04/05/2020 for further advice Disposition lives with at home DC home Follow-up with primary care physician next week per discharge instructions Total Time Total Time Spent Total Time Spent (In Minutes): 45 minutes Discharge Plan Discharge Items Patient Disposition: Home - Self-Care Reason For Visit: LEFT LOWER EXTREMITY PAIN Discharge Diagnosis: Acute gout attack Activity: Resume your previous activity Activity Comment: Increase activity gradually as tolerated Lifting: Wait until after follow-up appointment Exercise/Sports: Wait until after follow-up appointment Driving/Machine Use: No driving until reevaluated and allowed by primary care physician Non-emergency contact: Primary Care Provider Call non-emergency contact if: you have any medication questions, your symptoms worsen, your pain is not controlled, your pain is worsening, your pain is unusual for you, your pain is concerning for you and you have a fever Follow-up/Referrals: Nacho Chen MD [Primary Care Provider] - 04/07/20 11:00 am (Date & Time 04/07/2020 11:00 AM Provider Nacho Chen III, MD Department [facility] ) Diet: Carb Consistent or DM2 and Heart Healthy Addtl Attending Provider Instructions: Take prednisone 10 mg per tablet as follows: 3 tablets or 30 mg x 1 day, then 2 tablets or 20 mg x 2 days, then 1 tablet or 10 mg x 2 days, then stop Always take your prednisone with a full stomach. You can take Conrad 1 tablet every 4-6 hours as needed for pain. No driving or using heavy machinery while taking Conrad. Take a stool softener daily while taking Conrad. Drink plenty of fluids and fiber in your diet to prevent constipation. Stop taking chlorthalidone as this may precipitate gout attacks. Increase amlodipine from 5 mg to 10 mg per day. Please review new medication list and follow instructions carefully. Call your primary care physician or return to the ER immediately if with worsening of symptoms. Follow-up with Dr. Chen this coming week as outlined above. Pending Studies at Discharge: No Stand-Alone Forms: My [facility], Smoking Cessation Medications and DC Order Prescriptions: New hydrocodone-acetaminophen [Conrad] 5-325 mg Tablet 1 tab PO Q4H PRN (Reason: pain) Qty: 10 RF: 0 amlodipine [Norvasc] 5 mg Tablet 10 mg PO DAILY Qty: 30 RF: 2 prednisone 10 mg Tablet 10 mg PO UD Qty: 9 RF: 0 Continued ferrous sulfate 325 mg (65 mg iron) Tablet 0 mg PO BID RF: 0 pramipexole [Mirapex] 0.25 mg Tablet 0.5 - 0.75 mg PO QPM RF: 0 gabapentin 100 mg Capsule 200 mg PO QPM RF: 0 cholecalciferol (vitamin D3) [Vitamin D3] 1,000 unit Capsule 1,000 unit PO QAM RF: 0 Lantus Solostar U-100 Insulin 100 unit/mL (3 mL) Insulin Pen 45 unit SUBCUT BID RF: 0 metformin 500 mg Tablet 500 mg PO BID RF: 0 warfarin 5 mg tablet 5 mg PO .Q MON RF: 0 finasteride 5 mg tablet 0 mg PO QAM RF: 0 aspirin 81 mg Tablet,Delayed Release (Dr/Ec) 81 mg PO DAILY RF: 0 warfarin 5 mg tablet 10 mg PO [id number] RF: 0 Jardiance 10 mg tablet 10 mg PO DAILY RF: 0 lisinopril 10 mg tablet 20 mg PO DAILY RF: 0 Discontinued amlodipine [Norvasc] 5 mg tablet 5 mg PO DAILY RF: 0 chlorthalidone 25 mg tablet 25 mg PO DAILY RF: 0 Discharge Orders: Discharge Order (Routine); Ordered 04/04/20 Ordered By: Moi Tilley/Other Patient Handouts: Managing Type 2 Diabetes Admission Data Admit Date/Time: 03/31/20 00:23 Attending Provider: Moi Haskins Admit Provider: Vick Pickard Primary Care Provider: Nacho Chen Other Providers: Leo Berger Other Interventions: Discharge Summary Assessment (RN) Last Done: 04/04/20 13:10
[2020-04-05] MEDS ORDERED: WARFARIN SOD 5 MG TAB PO SCH (16:00)
== END 2020-04-04 13:41 | disposition home or self-care (01) | DRG 554 ==
LOC: ED 18:56 → 2N 03-31 00:23

== ENCOUNTER 2020-10-30 20:28 | Inpatient (IN) ==
[2020-10-30] MEDS ORDERED: ACETAMINOPHEN 500 MG TAB PO STA (21:34)
[2020-10-30] MEDS ORDERED: SODIUM CHLORIDE 0.9% 1000ML 1,000 ML IV ONE (21:34)
[2020-10-30] MEDS ORDERED: VANCOMYCIN HCL 2,000 MG in SODIUM CHLORIDE 0.9% 500 ML IV ONE (21:40)
[2020-10-30] MEDS ORDERED: VANCOMYCIN CONSULT ACTIVE PRN (21:40)
[2020-10-30] MEDS ORDERED: cefTRIAXone SODIUM 2,000 MG/70 ML BAG IV STA (21:40)
[2020-10-30 22:06] LABS: Basophils # (auto) 0.03 K/uL (0-0.2); Basophils % (auto) 0.2 %; Eosinophils # (auto) 0.45 K/uL (0-0.5); Eosinophils % (auto) 3.7 %; Hematocrit (blood only) 42.6 % (42-52); Hemoglobin 14.1 g/dL (14.0-18.0); Immature Granulocytes # (auto) 0.04 K/uL (0.00-0.02); Immature Granulocytes % (auto) 0.3 %; Lymphocytes # (auto) 1.47 K/uL (1.2-3.4); Mean Corpuscular Hemoglobin 30.2 pg (25-34); Mean Corpuscular Hgb Conc 33.1 g/dL (32-36); Mean Corpuscular Volume 91.2 fL (80-100); Mean Platelet Volume 9.8 fL (7.4-10.4); Monocytes # (auto) 1.22 K/uL (0.11-0.59); Neutrophils # (auto) 9.02 K/uL (1.4-6.5); Neutrophils % (auto) 73.8 %; Platelet Count 230 K/uL (130-400); RDW Coefficient of Variation 14.6 % (11.5-14.5); RDW Standard Deviation 48.9 fL (36.4-46.3); Red Blood Count 4.67 M/uL (4.7-6.1); White Blood Count 12.23 K/uL (4.8-10.8)
[2020-10-30 22:16] LABS: Partial Thromboplastin Ratio 1.6; Partial Thromboplastin Time 42.1 Seconds (21.0-31.0)
[2020-10-30 22:23] LABS: Albumin Level 3.4 gm/dl (3.4-5.0); BUN Creatinine Ratio 14.2 (10-20); C Reactive Protein 3.05 mg/dl (0-0.29); Calcium 9.4 mg/dl (8.5-10.1); Creatinine Clr Calc Pharmacy 45.8 ml/min; Est GFR (African American) 50.3; Est GFR (Non-African American) 43.4; Magnesium 1.8 mg/dl (1.8-2.4)
[2020-10-30 22:26] LABS: Albumin Globulin Ratio 0.9 (0.9-2); Bilirubin,Total 0.4 mg/dl (0.2-1); Globulin 3.7 gm/dl (2.5-4.0); Total Protein 7.1 gm/dl (6.4-8.2)
[2020-10-30] MEDS ORDERED: LIDOCAINE HCL 1% 20 ML VIAL ONE (22:36)
[2020-10-30 22:44] LABS: Appearance Urine Clear (Clear); Bacteria Urine Automated Negative (Negative); Bilirubin Urine Negative (Negative); Blood Urine 1+ (Negative); Color Urine Yellow; Glucose Urine UA 3+ (Negative); Ketones Urine Negative (Negative); Leukocyte Esterase Urine Negative (Negative); Nitrite Urine Negative (Negative); Protein Urine 3+ (Negative); RBC Urine Automated 0-4 /hpf (0-4); Specific Gravity Urine 1.025 (1.000-1.030); Urobilinogen Urine Negative (Negative); WBC Urine Automated 0 /hpf (0-5)
[2020-10-30] MEDS ORDERED: LIDOCAINE HCL 1% 20 ML VIAL INFIL ONE (22:56)
[2020-10-30 23:34] LABS: Lyme Ab IgG w/WB Rflx Negative (Negative); Lyme Ab IgM w/WB Rflx Negative (Negative)
[2020-10-31 00:09] LABS: Appearance Synovial Fluid CLOUDY; Color Synovial Fluid RED; Mononuclear WBC Synovial 10.9 %; Polynuclear WBC Synovial 89.1 %; RBC Synovial Fluid (A) 46000 /uL; Source Synovial Fluid KNEE; WBC Synovial Fluid (A) 34874 /ul (0-200)
[2020-10-31] MEDS ORDERED: fentaNYL citrate 100 MCG/2 ML VIAL IV STA (00:15)
--- NOTE | 2020-10-31 00:28 | History & Physical Report ---
Date of Service October 31, 2020 Assessment & Plan (1) Septic arthritis: hx septic right TKA status post surgery, antibiotic Rx (2015) hypertension, stable history of DVT on Coumadin, INR therapeutic DM2 insulin requiring, reasonable control as all recent hemoglobin A1c of 8.22 April 2020 CRI, creatinine close to baseline hx possible multiple sclerosis/restless leg syndrome, neuropathy PMR as per records GMF CS, Daptomycin, Cefepime Orthopedics consult Re: Possible recurrent septic arthritis right TKA (ER provider already in touch with Dr. Lincoln.) N.p.o. until patient seen by Orthopedics in a.m. anticipation of procedure. Hold Coumadin for now. Basal insulin adjusted for n.p.o. status ISS BG goal [id number], update hemoglobin A1c DVT prophylaxis. IV heparin if INR less than 2 while Coumadin on hold Full code Patient daughter requesting updates from providers. Ms. Cecilia Hurst Margot, contact #[phone]. Text document was generated using [employer] voice recognition software. It may contain grammatical or spelling errors. Kindly contact undersigned for clarification of any documentation item in question. History of Present Illness Chief Complaint: Fever, chills, right leg pain Primary Care Provider: Nacho Chen MD History obtained from patient, family, and records. Medical history significant for hypertension, hyperlipidemia, history of DVT on Coumadin, DM2 insulin requiring, CRI (baseline creatinine 1.5), possible multiple sclerosis/neuropathy/gait dysfunction as per records, hx PMR, hx septic right TKA status post surgery, antibiotic Rx (2015). Patient confined for 2 weeks under Orthopedic service in 2015 for septic arthritis of right TKA joint. Patient underwent arthroplasty with irrigation, debridement, and implantation of antibiotic spacer. No growth on CS. Patient discharged on 6 week course of IV vancomycin. Patient also developed post op RLE DVT during confinement. Subsequently discharged on Coumadin. Last confinement March 2020 for acute gout attack. Yesterday morning, patient woke up with right lower leg pain, from the knee downwards as per patient, some knee swelling somewhat worse with motion. Temperature of 101 at home. No chest pain, no S OB, no cough symptoms. Trouble walking as per patient daughter. History knee infection in the past as per patient. At the ER, patient received Vancomycin and Zosyn for possible septic arthritis. Medical History as above Surgical History : Knee surgeries, appendectomy, shoulder surgery tibia/fibula fracture surgery Family History : Rheumatoid arthritis, dementia, DM, ESRD, heart disease Personal/Social history : Non-smoker, no EtOH intake, disabled Allergies Allergy/AdvReac Type Severity Reaction Status Date / Time morphine AdvReac Severe Vomiting Verified 10/30/20 21:18 rosuvastatin [From Crestor] AdvReac Intermediate Cramping Verified 10/30/20 21:18 of the Muscles Home Medications Medication Instructions Recorded Confirmed Type Lantus Solostar U-100 Insulin 42 unit SUBCUT BID 10/18/18 10/30/20 History cholecalciferol (vitamin D3) 1,000 unit PO QAM 10/18/18 10/30/20 History [Vitamin D3] ferrous sulfate 325 mg PO DAILY 10/18/18 10/30/20 History metformin 500 mg PO AMHS 08/06/19 10/30/20 History warfarin 5 mg PO WK 08/06/19 10/30/20 History Jardiance 10 mg PO DAILY 03/30/20 10/30/20 History aspirin 81 mg PO DAILY 03/30/20 10/30/20 History warfarin 10 mg PO 6XWK 03/30/20 10/30/20 History lisinopril 20 mg PO DAILY 03/31/20 10/30/20 History finasteride 5 mg tablet 5 mg PO DAILY #90 tab 05/25/20 10/30/20 Rx allopurinol 200 mg PO DAILY 07/01/20 10/30/20 History amlodipine [Norvasc] 10 mg PO HS 10/30/20 10/30/20 History Past Med/Surg History Medical History (Updated 10/31/20 @ 06:36 by Nahum Toro MD) Anxiety Asthma in remission BPH (benign prostatic hyperplasia) BPH loc w urin obs/LUTS Broken rib r/t old sports injury, shows up on CXRs as abnormal, but was very remote (in college) and does not cause any pain. Cataract Chronic kidney disease Stage III. follows w/ dr. bowens CKD (chronic kidney disease), stage III Deep vein thrombosis hx mult DVT to BLE; on coumadin; most recent fall/2018 - believes r/t surgeries (denies clotting disorder) Diabetes mellitus, type 2 IDDM DM type 2 (diabetes mellitus, type 2) Extrapyramidal disease and abnormal movement disorder GERD (gastroesophageal reflux disease) GERD (gastroesophageal reflux disease) History of kidney stones Hyperlipidemia Hyperlipidemia Hypertension Hypertension Kidney stone Multiple sclerosis Multiple sclerosis follows w/ dr. Galloway, has not had symptoms beyond muscle twitches since the early Osteoarthritis Polyarthritis Prostate cancer screening Thyroid nodule Surgical History H/O arthroscopic knee surgery History of appendectomy History of arthroscopy of left knee History of cardiac cath 15 years ago - CP led to cath - [place] - no stents/angioplasty, ruled indigestion - does not follow w/ cardio History of carpal tunnel release BL History of carpal tunnel surgery History of cystoscopy History of knee joint replacement x 2 rt knee History of repair of rotator cuff BL History of surgery LLE - hardware present History of tooth extraction History of total right knee replacement S/P appendectomy S/P rotator cuff repair Status post biopsy of thyroid gland benign Family History Daughter History of anesthesia reaction PONV Grandfather (Paternal) Family history of diabetes mellitus Mother Family history of diabetes mellitus Father Family history of diabetes mellitus Social History Smoking Status: Never smoker Tobacco Type: Smokeless Tobacco (Dip or Chew) Second Hand Exposure: Yes ( smokes two cartons week); Do You Dip or Chew Tobacco: Yes; Hx Alcohol Use: No Hx Substance Use: No Preferred Language: French Communication Ability: Effective 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 Beliefs That Will Affect Care: None marital status: Current Living Situation: Spouse current occupational status: retired Other Information That Helps Us Care for You: No Feels Safe at Home: Yes Safety Concerns: Feels Safe At This Time Assistive Devices: Walker Review of Systems Review of Systems: As per HPI, all 10 systems reviewed, all other ROS negative Physical Exam Physical Exam: GENERAL: Comfortable, pleasant, obese, no respiratory distress SKIN: Bespectacled, normal color, warm HEENT: [place] palpebral conjunctivae, no ptosis, dry buccal mucosa NECK : Supple, short neck, no tenderness CHEST : CTA, no tenderness HEART : RRR, no obvious murmurs ABDOMEN: Some distention, nontender EXTREMITIES : Minimal right knee swelling with tenderness with dressing, no other conspicuous deformities noted NEUROLOGIC : Coherent, no facial asymmetry, gait and stance not assessed Results & Data Results & Data ([facility]) Vital Signs (Past 12 Hours) Vital Signs Temp Pulse Resp BP Pulse Ox 10/31/20 00:00 81 21 138/91 10/30/20 23:31 93 H 15 10/30/20 23:30 90 20 168/80 H 10/30/20 23:00 83 22 153/72 H 94 10/30/20 22:30 93 H 25 H 158/110 H 10/30/20 22:08 93 10/30/20 22:01 81 23 95 10/30/20 22:00 80 18 174/77 H 95 10/30/20 21:44 84 25 H 161/73 H 95 10/30/20 21:30 95 H 19 93 10/30/20 20:35 37.3 C 83 20 139/90 96 Laboratory Results Laboratory Results WBC 12.23 K/uL (4.8-10.8) H 10/30/20 21:56 RBC 4.67 M/uL (4.7-6.1) L 10/30/20 21:56 Hgb 14.1 g/dL (14.0-18.0) 10/30/20 21:56 Hct 42.6 % (42-52) 10/30/20 21:56 MCV 91.2 fL (80-100) 10/30/20 21:56 MCH 30.2 pg (25-34) 10/30/20 21:56 MCHC 33.1 g/dL (32-36) 10/30/20 21:56 RDW Std Deviation 48.9 fL (36.4-46.3) H 10/30/20 21:56 RDW Coeff of Leo 14.6 % (11.5-14.5) H 10/30/20 21:56 Plt Count 230 K/uL (130-400) 10/30/20 21:56 MPV 9.8 fL (7.4-10.4) 10/30/20 21:56 Immature Gran % (Auto) 0.3 % 10/30/20 21:56 Neut % (Auto) 73.8 % 10/30/20 21:56 Lymph % (Auto) 12.0 % 10/30/20 21:56 Moffat % (Auto) 10.0 % 10/30/20 21:56 Eos % (Auto) 3.7 % 10/30/20 21:56 Baso % (Auto) 0.2 % 10/30/20 21:56 Neut # (Auto) 9.02 K/uL (1.4-6.5) H 10/30/20 21:56 Lymph # (Auto) 1.47 K/uL (1.2-3.4) 10/30/20 21:56 Moffat # (Auto) 1.22 K/uL (0.11-0.59) H 10/30/20 21:56 Eos # (Auto) 0.45 K/uL (0-0.5) 10/30/20 21:56 Baso # (Auto) 0.03 K/uL (0-0.2) 10/30/20 21:56 Immature Gran # (Auto) 0.04 K/uL (0.00-0.02) H 10/30/20 21:56 ESR 27 mm/hr (0-14) H 10/30/20 21:56 PT 28.0 Seconds (9.0-12.0) H 10/30/20 21:56 INR 3.0 (0.9-1.1) H 10/30/20 21:56 APTT 42.1 Seconds (21.0-31.0) H 10/30/20 21:56 PTT Ratio 1.6 10/30/20 21:56 Sodium 138 mmol/L (136-145) 10/30/20 21:56 Potassium 4.0 mmol/L (3.5-5.1) 10/30/20 21:56 Chloride 107 mmol/L (98-107) 10/30/20 21:56 Carbon Dioxide 25 mmol/L (21-32) 10/30/20 21:56 Anion Gap 6.0 (3-11) 10/30/20 21:56 BUN 22 mg/dl (7-18) H 10/30/20 21:56 Creatinine 1.58 mg/dl (0.6-1.4) H 10/30/20 21:56 Est Cr Clr Drug Dosing 45.8 ml/min 10/30/20 21:56 Est GFR ( Amer) 50.3 10/30/20 21:56 Est GFR (Non-Af Amer) 43.4 10/30/20 21:56 BUN/Creatinine Ratio 14.2 (10-20) 10/30/20 21:56 Glucose 96 mg/dl (70-99) 10/30/20 21:56 Lactate 1.7 mmol/L (0.4-2.0) 10/30/20 21:56 Calcium 9.4 mg/dl (8.5-10.1) 10/30/20 21:56 Magnesium 1.8 mg/dl (1.8-2.4) 10/30/20 21:56 Total Bilirubin 0.4 mg/dl (0.2-1) 10/30/20 21:56 AST 14 U/L (15-37) L 10/30/20 21:56 ALT 21 U/L (12-78) 10/30/20 21:56 Alkaline Phosphatase 60 U/L (45-117) 10/30/20 21:56 C-Reactive Protein 3.05 mg/dl (0-0.29) H 10/30/20 21:56 Total Protein 7.1 gm/dl (6.4-8.2) 10/30/20 21:56 Albumin 3.4 gm/dl (3.4-5.0) 10/30/20 21:56 Globulin 3.7 gm/dl (2.5-4.0) 10/30/20 21:56 Albumin/Globulin Ratio 0.9 (0.9-2) 10/30/20 21:56 Urine Color Yellow 10/30/20 20:20 Urine Appearance Clear (Clear) 10/30/20 20:20 Urine pH 5.0 (4.5-7.5) 10/30/20 20:20 Ur Specific Alexander 1.025 (1.000-1.030) 10/30/20 20:20 Urine Protein 3+ (Negative) H 10/30/20 20:20 Urine Glucose (UA) 3+ (Negative) H 10/30/20 20:20 Urine Ketones Negative (Negative) 10/30/20 20:20 Urine Blood 1+ (Negative) H 10/30/20 20:20 Urine Nitrite Negative (Negative) 10/30/20 20:20 Urine Bilirubin Negative (Negative) 10/30/20 20:20 Urine Urobilinogen Negative (Negative) 10/30/20 20:20 Ur Leukocyte Esterase Negative (Negative) 10/30/20 20:20 Urine WBC (Auto) 0 /hpf (0-5) 10/30/20 20:20 Urine RBC (Auto) 0-4 /hpf (0-4) 10/30/20 20:20 U Hyaline Cast (Auto) 1-5 /lpf (0-5) 10/30/20 20:20 U Epithel Cells (Auto) 5-10 /lpf (0-5) H 10/30/20 20:20 Urine Bacteria (Auto) Negative (Negative) 10/30/20 20:20 Fluid Comment 10/30/20 22:50 Synovial Source KNEE 10/30/20 22:50 Synovial Color RED 10/30/20 22:50 Synovial Appearance CLOUDY 10/30/20 22:50 Synovial WBC 46796 /ul (0-200) H 10/30/20 22:50 Synovial RBC 22587 /uL 10/30/20 22:50 Synovial Polynuclear % 89.1 % 10/30/20 22:50 Synovial Mononuclear % 10.9 % 10/30/20 22:50 Lyme Disease IgG Ab Negative (Negative) 10/30/20 21:56 Lyme Disease IgM Ab Negative (Negative) 10/30/20 21:56 COVID-19 Eval Order CovFluRsv at [facility] 10/30/20 23:12 Diagnostic Findings Chest x-ray as per my interpretation no congestion Right knee x-ray as per my interpretation minimal soft tissue swelling, minimal effusion EKG as per my interpretation : Rate 85, NSR, normal axis, T wave abnormalities lateral leads
[2020-10-31 00:50] LABS: Influenza A virus by PCR Negative (Neg); Influenza B virus by PCR Negative (Neg); RSV by PCR Negative (Neg); SARS CoV2 RNA(COVID-19) InHosp NEGATIVE (Negative)
--- NOTE | 2020-10-31 01:00 | Emergency Department Note ---
History of Present Illness General Chief complaint: Lower Extremity Injury/Pain Stated complaint: FEVER, JOINT PAIN Time Seen by Provider: 10/30/20 21:25 History of Present Illness Maximum Pain Intensity: 7 This 70-year-old presents to the ER complaining of fever, chills, body aches and increasing right knee pain for the past day who has had a septic joint to this knee before and has had [address] Bueno Location: Right knee Quality: Achy Severity: Moderate Duration: Today Timing: Today Context: Patient was concerned and came in Modifying factors: better with rest; worse with activity Patient had a septic knee in 2016. Patient has received both Covid shots. Last one was 1 week ago. Patient denies chest pain, dyspnea, cough, congestion, abdominal pain. He states his main concern is his right knee is bothering him and is more swollen and red. He has had ticks on him but unsure if he had tick bites. Home Medications Medication Instructions Recorded Confirmed Type Lantus Solostar U-100 Insulin 42 unit SUBCUT BID 10/18/18 10/30/20 History cholecalciferol (vitamin D3) 1,000 unit PO QAM 10/18/18 10/30/20 History [Vitamin D3] ferrous sulfate 325 mg PO DAILY 10/18/18 10/30/20 History metformin 500 mg PO AMHS 08/06/19 10/30/20 History warfarin 5 mg PO WK 08/06/19 10/30/20 History Jardiance 10 mg PO DAILY 03/30/20 10/30/20 History aspirin 81 mg PO DAILY 03/30/20 10/30/20 History warfarin 10 mg PO [id number] 03/30/20 10/30/20 History lisinopril 20 mg PO DAILY 03/31/20 10/30/20 History finasteride 5 mg tablet 5 mg PO DAILY #90 tab 05/25/20 10/30/20 Rx allopurinol 200 mg PO DAILY 07/01/20 10/30/20 History amlodipine [Norvasc] 10 mg PO HS 10/30/20 10/30/20 History Allergies Allergy/AdvReac Type Severity Reaction Status Date / Time morphine AdvReac Severe Vomiting Verified 10/30/20 21:18 rosuvastatin [From Crestor] AdvReac Intermediate Cramping Verified 10/30/20 21:18 of the Muscles Past Med/Surg History Medical History (Updated 10/31/20 @ 06:36 by Nahum Toro MD) Anxiety Asthma in remission BPH (benign prostatic hyperplasia) BPH loc w urin obs/LUTS Broken rib r/t old sports injury, shows up on CXRs as abnormal, but was very remote (in college) and does not cause any pain. Cataract Chronic kidney disease Stage III. follows w/ dr. 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 Galloway, has not had symptoms beyond muscle twitches since the early Osteoarthritis Polyarthritis Prostate cancer screening Thyroid nodule Surgical History H/O arthroscopic knee surgery History of appendectomy History of arthroscopy of left knee History of cardiac cath 15 years ago - CP led to cath - [place] - no stents/angioplasty, ruled indigestion - does not follow w/ cardio History of carpal tunnel release BL History of carpal tunnel surgery History of cystoscopy History of knee joint replacement x 2 rt knee History of repair of rotator cuff BL History of surgery LLE - hardware present History of tooth extraction History of total right knee replacement S/P appendectomy S/P rotator cuff repair Status post biopsy of thyroid gland benign Family History Daughter History of anesthesia reaction PONV Grandfather (Paternal) Family history of diabetes mellitus Mother Family history of diabetes mellitus Father Family history of diabetes mellitus Social History Smoking Status: Never smoker Tobacco Type: Smokeless Tobacco (Dip or Chew) Second Hand Exposure: Yes ( smokes two cartons week); Do You Dip or Chew Tobacco: Yes; Hx Alcohol Use: No Hx Substance Use: No Preferred Language: Martiniquais Communication Ability: Effective Court Deputy Required: No Beliefs That Will Affect Care: None marital status: Current Living Situation: Spouse current occupational status: retired Other Information That Helps Us Care for You: No Feels Safe at Home: Yes Safety Concerns: Feels Safe At This Time Assistive Devices: Walker Review of Systems A total of 10 systems reviewed and were otherwise negative Physical Exam Vital Signs Vital Signs - 24 hr 10/30/20 20:35 10/30/20 21:30 10/30/20 21:33 Temperature 37.3 C Temperature Source Oral Pulse Rate 83 95 H Pulse Rate from SpO2 Sensor 88 Pulse Rhythm Regular Pulse Strength Normal Respiratory Rate 20 19 Respiratory Effort / Characteristics Non-Labored Non-Labored Respiratory Depth Normal Respiratory Pattern Regular Blood Pressure 139/90 Blood Pressure Mean 106 Blood Pressure Position Sitting Pulse Oximetry 96 93 Oxygen Delivery Method Room Air Sepsis Recent Fever Within 48 Hours Yes Sepsis New/Unexplained Change in Mental Status No Sepsis Action Taken by Nursing No Action Required 10/30/20 21:44 10/30/20 22:00 10/30/20 22:01 Temperature Temperature Source Pulse Rate 84 80 81 Pulse Rate from SpO2 Sensor 84 79 83 Pulse Rhythm Pulse Strength Respiratory Rate 25 H 18 23 Respiratory Effort / Characteristics Respiratory Depth Respiratory Pattern Blood Pressure 161/73 H 174/77 H Blood Pressure Mean 102 109 Blood Pressure Position Pulse Oximetry 95 95 95 Oxygen Delivery Method Sepsis Recent Fever Within 48 Hours Sepsis New/Unexplained Change in Mental Status Sepsis Action Taken by Nursing 10/30/20 22:08 10/30/20 22:30 10/30/20 23:00 Temperature Temperature Source Pulse Rate 93 H 83 Pulse Rate from SpO2 Sensor 80 Pulse Rhythm Pulse Strength Respiratory Rate 25 H 22 Respiratory Effort / Characteristics Respiratory Depth Respiratory Pattern Blood Pressure 158/110 H 153/72 H Blood Pressure Mean 126 99 Blood Pressure Position Pulse Oximetry 93 94 Oxygen Delivery Method Room Air Sepsis Recent Fever Within 48 Hours Sepsis New/Unexplained Change in Mental Status Sepsis Action Taken by Nursing 10/30/20 23:30 10/30/20 23:31 10/31/20 00:00 Temperature Temperature Source Pulse Rate 90 93 H 81 Pulse Rate from SpO2 Sensor Pulse Rhythm Pulse Strength Respiratory Rate 20 15 21 Respiratory Effort / Characteristics Respiratory Depth Respiratory Pattern Blood Pressure 168/80 H 138/91 Blood Pressure Mean 109 106 Blood Pressure Position Pulse Oximetry Oxygen Delivery Method Sepsis Recent Fever Within 48 Hours Sepsis New/Unexplained Change in Mental Status Sepsis Action Taken by Nursing 10/31/20 00:30 Temperature Temperature Source Pulse Rate 88 Pulse Rate from SpO2 Sensor 88 Pulse Rhythm Pulse Strength Respiratory Rate 22 Respiratory Effort / Characteristics Respiratory Depth Respiratory Pattern Blood Pressure Blood Pressure Mean Blood Pressure Position Pulse Oximetry 93 Oxygen Delivery Method Sepsis Recent Fever Within 48 Hours Sepsis New/Unexplained Change in Mental Status Sepsis Action Taken by Nursing VITALS: Vitals are noted on the nurse's note and reviewed by myself. Vital signs stable. GENERAL: Pleasant male, in no acute distress, nondiaphoretic, well-developed well-nourished. SKIN: Right knee slightly erythematous and edematous tender to palpation with increased pain with range of motion, the rest of the skin was without rashes, erythema, edema, or bruising. There is no tenting of the skin. Capillary reflex less than 2 seconds. HEAD: Normocephalic atraumatic. EARS: External auditory canals clear, tympanic membranes pearly bahena without erythema or effusion bilaterally. EYES: Pupils equal round and reactive to light and accommodation. Conjunctivae without injection, sclerae without icterus. Extraocular movements intact. NOSE: Patent, turbinates without inflammation or discharge. MOUTH: Mucous membranes moist. Pharynx without erythema or exudate. Uvula midline. Airway patent. Tongue does not deviate. NECK: Supple without nuchal rigidity. No lymphadenopathy. No thyromegaly. Cervical spine is nontender. No JVD. HEART: Regular rate and rhythm . LUNGS: Clear to auscultation bilaterally without wheezes, rales or rhonchi. No retractions or accessory muscle use. ABDOMEN: Positive bowel sounds x 4. Normal tympanic percussion. Soft, nontender, without masses or organomegaly. Alexandra sign negative. No guarding or rebound tenderness. No CVA tenderness MUSCULOSKELETAL: No muscle atrophy, noted. Right knee slightly erythematous and edematous tender to palpation with increased pain with range of motion NEURO: Patient was alert and oriented to person place and time. Normal sensation to light and sharp touch. No focal neurological deficits. Procedures Joint Aspiration/Injection Joint Asp./Inject. 1: Time Out Performed: Yes Side of body: right Joint Aspirated: knee Ultrasound Guidance: No Skin Prep: Povidone-Iodine1% Local Anesthetic: lidocaine 1% Needle Size Used: 18G Fluid Obtained: bloody (And purulent) Total fluid obtained (mL): 30 Patient Tolerated Procedure: well and no complications Complications: none Course Administered Medications Allopurinol (Allopurinol 100 Mg Tab) 200 mg PO DAILY [facility] Stop: 11/30/20 08:59 Last Admin: 10/31/20 09:36 Dose: 200 mg Documented by: [id number] Aspirin (Aspirin 81 Mg Ectab) 81 mg PO DAILY [facility] Stop: 11/30/20 08:59 Last Admin: 10/31/20 09:34 Dose: Not Given Documented by: [id number] Ferrous Sulfate (Ferrous Sulfate 325 Mg Tab) 325 mg PO DAILY [facility] Stop: 11/30/20 08:59 Last Admin: 10/31/20 09:35 Dose: Not Given Documented by: [id number] Finasteride (Finasteride 5 Mg Tab) 5 mg PO DAILY [facility] Stop: 11/30/20 08:59 Last Admin: 10/31/20 09:36 Dose: 5 mg Documented by: [id number] Hydromorphone HCl (Hydromorphone Inj 0.5 Mg/0.5 Ml Syr) 0.25 mg IV Q3H PRN PRN Reason: Pain Stop: 11/14/20 01:42 Last Admin: 10/31/20 09:45 Dose: 0.25 mg Documented by: [id number] Sodium Chloride (Nss 1000ml) 1,000 mls @ 60 mls/hr IV .[id number] [facility] Stop: 11/30/20 01:42 Last Infusion: 10/31/20 03:50 Dose: 60 mls/hr Documented by: [id number] Infusion: 10/31/20 02:15 Dose: 60 mls/hr Documented by: [id number] Admin: 10/31/20 01:45 Dose: 60 mls/hr Documented by: [id number] Daptomycin 375 mg/ Syringe 7.5 mls @ 3.75 mls/min IV Q24H [facility]; Protocol Stop: 12/12/20 03:59 Last Admin: 10/31/20 04:20 Dose: 3.75 mls/min Documented by: [id number] Cefepime HCl 2,000 mg/ Syringe 20 mls @ 5 mls/min IV Q24H [facility]; Protocol Stop: 12/12/20 01:59 Last Admin: 10/31/20 02:19 Dose: 5 mls/min Documented by: [id number] Insulin Aspart (Insulin Aspart 100 Units/Ml 3 Ml Pen) 0 units SC ACHS [facility] Stop: 11/30/20 11:29 Last Admin: 10/31/20 13:02 Dose: Not Given Documented by: [id number] Cosigned by: [id number] Insulin Glargine (Insulin Glargine Solostar 100 Units/Ml 3 Ml Pen) 20 units SC BID [facility] Stop: 11/30/20 08:59 Last Admin: 10/31/20 09:36 Dose: 20 units Documented by: [id number] Cosigned by: [id number] Tramadol HCl (Tramadol Hcl 50 Mg Tablet) 25 - 50 mg PO Q4H PRN PRN Reason: Pain Stop: 11/30/20 01:42 Last Admin: 10/31/20 07:09 Dose: 50 mg Documented by: [id number] Discontinued Medications Acetaminophen (Acetaminophen 500 Mg Tab) 1,000 mg PO NOW STA Stop: 10/30/20 21:35 Last Admin: 10/30/20 21:44 Dose: 1,000 mg Documented by: [id number] Fentanyl Citrate (Fentanyl Citrate 100 Mcg/2 Ml Vial) 50 mcg IV NOW STA Stop: 10/31/20 00:16 Last Admin: 10/31/20 00:24 Dose: 50 mcg Documented by: [id number] Sodium Chloride (Nss 1000ml) 1,000 mls @ 999 mls/hr IV .Q1H1M ONE Stop: 10/30/20 22:34 Last Infusion: 10/31/20 00:11 Dose: 0 mls/hr Documented by: [id number] Admin: 10/30/20 21:54 Dose: 999 mls/hr Documented by: [id number] Ceftriaxone Sodium (Rocephin) 2,000 mg in 70 mls @ 140 mls/hr IV NOW STA Stop: 10/30/20 22:09 Last Infusion: 10/30/20 22:51 Dose: 0 mls/hr Documented by: [id number] Admin: 10/30/20 22:20 Dose: 140 mls/hr Documented by: [id number] Vancomycin HCl 2,000 mg/ (Sodium Chloride) 540 mls @ 200 mls/hr IV NOW ONE Stop: 10/31/20 00:21 Last Infusion: 10/31/20 02:15 Dose: 0 mls/hr Documented by: [id number] Admin: 10/30/20 22:55 Dose: 200 mls/hr Documented by: [id number] Insulin Aspart (Insulin Aspart 100 Units/Ml 3 Ml Pen) 0 units SC Q6 [facility] Stop: 11/30/20 01:59 Last Admin: 10/31/20 06:26 Dose: Not Given Documented by: [id number] Cosigned by: [id number] Admin: 10/31/20 03:52 Dose: Not Given Documented by: [id number] Cosigned by: [id number] Lidocaine HCl (Lidocaine Hcl 1% 20 Ml Vial) Confirm Administered Dose 20 ml .ROUTE .STK-MED ONE Stop: 10/30/20 22:37 Last Admin: 10/30/20 22:59 Dose: Not Given Documented by: [id number] Lidocaine HCl (Lidocaine Hcl 1% 20 Ml Vial) 20 ml INFIL NOW ONE Stop: 10/30/20 22:57 Last Admin: 10/30/20 22:58 Dose: 20 ml Documented by: [id number] Medical Decision Making Medical Records Attestation: I reviewed the patient's medical records. Home Medications Current Medication List: was personally reviewed by me Laboratory Data Attestation: I reviewed the patient's lab results. Result diagrams: 10/31/20 05:43 10/31/20 05:43 Lab Results 10/30/20 10/30/20 10/30/20 Range/Units 20:20 21:56 21:56 WBC 12.23 H (4.8-10.8) K/uL RBC 4.67 L (4.7-6.1) M/uL Hgb 14.1 (14.0-18.0) g/dL Hct 42.6 (42-52) % MCV 91.2 (80-100) fL MCH 30.2 (25-34) pg MCHC 33.1 (32-36) g/dL RDW Std Deviation 48.9 H (36.4-46.3) fL RDW Coeff of Leo 14.6 H (11.5-14.5) % Plt Count 230 (130-400) K/uL MPV 9.8 (7.4-10.4) fL Immature Gran % (Auto) 0.3 % Neut % (Auto) 73.8 % Lymph % (Auto) 12.0 % [place] % (Auto) 10.0 % Eos % (Auto) 3.7 % Baso % (Auto) 0.2 % Neut # (Auto) 9.02 H (1.4-6.5) K/uL Lymph # (Auto) 1.47 (1.2-3.4) K/uL [place] # (Auto) 1.22 H (0.11-0.59) K/uL Eos # (Auto) 0.45 (0-0.5) K/uL Baso # (Auto) 0.03 (0-0.2) K/uL Immature Gran # (Auto) 0.04 H (0.00-0.02) K/uL ESR 27 H (0-14) mm/hr PT (9.0-12.0) Seconds INR (0.9-1.1) APTT (21.0-31.0) Seconds PTT Ratio Sodium (136-145) mmol/L Potassium (3.5-5.1) mmol/L Chloride (98-107) mmol/L Carbon Dioxide (21-32) mmol/L Anion Gap (3-11) BUN (7-18) mg/dl Creatinine (0.6-1.4) mg/dl Est Cr Clr Drug Dosing ml/min Est GFR ( Amer) Est GFR (Non-Af Amer) BUN/Creatinine Ratio (10-20) Glucose (70-99) mg/dl Lactate (0.4-2.0) mmol/L Calcium (8.5-10.1) mg/dl Magnesium (1.8-2.4) mg/dl Total Bilirubin (0.2-1) mg/dl AST (15-37) U/L ALT (12-78) U/L Alkaline Phosphatase (45-117) U/L Total Creatine Kinase (39-308) U/L C-Reactive Protein (0-0.29) mg/dl Total Protein (6.4-8.2) gm/dl Albumin (3.4-5.0) gm/dl Globulin (2.5-4.0) gm/dl Albumin/Globulin Ratio (0.9-2) Procalcitonin (0-0.5) ng/ml Urine Color Yellow Urine Appearance Clear (Clear) Urine pH 5.0 (4.5-7.5) Ur Specific [place] 1.025 (1.000-1.030) Urine Protein 3+ H (Negative) Urine Glucose (UA) 3+ H (Negative) Urine Ketones Negative (Negative) Urine Blood 1+ H (Negative) Urine Nitrite Negative (Negative) Urine Bilirubin Negative (Negative) Urine Urobilinogen Negative (Negative) Ur Leukocyte Esterase Negative (Negative) Urine WBC (Auto) 0 (0-5) /hpf Urine RBC (Auto) 0-4 (0-4) /hpf U Hyaline Cast (Auto) 1-5 (0-5) /lpf U Epithel Cells (Auto) 5-10 H (0-5) /lpf Urine Bacteria (Auto) Negative (Negative) Fluid Comment Synovial Source Synovial Color Synovial Appearance Synovial WBC (0-200) /ul Synovial RBC /uL Synovial Polynuclear % % Synovial Mononuclear % % Lyme Disease IgG Ab (Negative) Lyme Disease IgM Ab (Negative) COVID-19 Eval Order SARS-CoV-2 (PCR) (Negative) Influenza Type A (PCR) (Neg) Influenza Type B (PCR) (Neg) RSV (RT-PCR) (Neg) 10/30/20 10/30/20 10/30/20 Range/Units 21:56 21:56 21:56 WBC (4.8-10.8) K/uL RBC (4.7-6.1) M/uL Hgb (14.0-18.0) g/dL Hct (42-52) % MCV (80-100) fL MCH (25-34) pg MCHC (32-36) g/dL RDW Std Deviation (36.4-46.3) fL RDW Coeff of Leo (11.5-14.5) % Plt Count (130-400) K/uL MPV (7.4-10.4) fL Immature Gran % (Auto) % Neut % (Auto) % Lymph % (Auto) % [place] % (Auto) % Eos % (Auto) % Baso % (Auto) % Neut # (Auto) (1.4-6.5) K/uL Lymph # (Auto) (1.2-3.4) K/uL [place] # (Auto) (0.11-0.59) K/uL Eos # (Auto) (0-0.5) K/uL Baso # (Auto) (0-0.2) K/uL Immature Gran # (Auto) (0.00-0.02) K/uL ESR (0-14) mm/hr PT 28.0 H (9.0-12.0) Seconds INR 3.0 H (0.9-1.1) APTT 42.1 H (21.0-31.0) Seconds PTT Ratio 1.6 Sodium 138 (136-145) mmol/L Potassium 4.0 (3.5-5.1) mmol/L Chloride 107 (98-107) mmol/L Carbon Dioxide 25 (21-32) mmol/L Anion Gap 6.0 (3-11) BUN 22 H (7-18) mg/dl Creatinine 1.58 H (0.6-1.4) mg/dl Est Cr Clr Drug Dosing 45.8 ml/min Est GFR ( Amer) 50.3 Est GFR (Non-Af Amer) 43.4 BUN/Creatinine Ratio 14.2 (10-20) Glucose 96 (70-99) mg/dl Lactate 1.7 (0.4-2.0) mmol/L Calcium 9.4 (8.5-10.1) mg/dl Magnesium 1.8 (1.8-2.4) mg/dl Total Bilirubin 0.4 (0.2-1) mg/dl AST 14 L (15-37) U/L ALT 21 (12-78) U/L Alkaline Phosphatase 60 (45-117) U/L Total Creatine Kinase 82 (39-308) U/L C-Reactive Protein 3.05 H (0-0.29) mg/dl Total Protein 7.1 (6.4-8.2) gm/dl Albumin 3.4 (3.4-5.0) gm/dl Globulin 3.7 (2.5-4.0) gm/dl Albumin/Globulin Ratio 0.9 (0.9-2) Procalcitonin (0-0.5) ng/ml Urine Color Urine Appearance (Clear) Urine pH (4.5-7.5) Ur Specific [place] (1.000-1.030) Urine Protein (Negative) Urine Glucose (UA) (Negative) Urine Ketones (Negative) Urine Blood (Negative) Urine Nitrite (Negative) Urine Bilirubin (Negative) Urine Urobilinogen (Negative) Ur Leukocyte Esterase (Negative) Urine WBC (Auto) (0-5) /hpf Urine RBC (Auto) (0-4) /hpf U Hyaline Cast (Auto) (0-5) /lpf U Epithel Cells (Auto) (0-5) /lpf Urine Bacteria (Auto) (Negative) Fluid Comment Synovial Source Synovial Color Synovial Appearance Synovial WBC (0-200) /ul Synovial RBC /uL Synovial Polynuclear % % Synovial Mononuclear % % Lyme Disease IgG Ab (Negative) Lyme Disease IgM Ab (Negative) COVID-19 Eval Order SARS-CoV-2 (PCR) (Negative) Influenza Type A (PCR) (Neg) Influenza Type B (PCR) (Neg) RSV (RT-PCR) (Neg) 10/30/20 10/30/20 10/30/20 Range/Units 21:56 21:56 22:50 WBC (4.8-10.8) K/uL RBC (4.7-6.1) M/uL Hgb (14.0-18.0) g/dL Hct (42-52) % MCV (80-100) fL MCH (25-34) pg MCHC (32-36) g/dL RDW Std Deviation (36.4-46.3) fL RDW Coeff of Leo (11.5-14.5) % Plt Count (130-400) K/uL MPV (7.4-10.4) fL Immature Gran % (Auto) % Neut % (Auto) % Lymph % (Auto) % [place] % (Auto) % Eos % (Auto) % Baso % (Auto) % Neut # (Auto) (1.4-6.5) K/uL Lymph # (Auto) (1.2-3.4) K/uL [place] # (Auto) (0.11-0.59) K/uL Eos # (Auto) (0-0.5) K/uL Baso # (Auto) (0-0.2) K/uL Immature Gran # (Auto) (0.00-0.02) K/uL ESR (0-14) mm/hr PT (9.0-12.0) Seconds INR (0.9-1.1) APTT (21.0-31.0) Seconds PTT Ratio Sodium (136-145) mmol/L Potassium (3.5-5.1) mmol/L Chloride (98-107) mmol/L Carbon Dioxide (21-32) mmol/L Anion Gap (3-11) BUN (7-18) mg/dl Creatinine (0.6-1.4) mg/dl Est Cr Clr Drug Dosing ml/min Est GFR ( Amer) Est GFR (Non-Af Amer) BUN/Creatinine Ratio (10-20) Glucose (70-99) mg/dl Lactate (0.4-2.0) mmol/L Calcium (8.5-10.1) mg/dl Magnesium (1.8-2.4) mg/dl Total Bilirubin (0.2-1) mg/dl AST (15-37) U/L ALT (12-78) U/L Alkaline Phosphatase (45-117) U/L Total Creatine Kinase (39-308) U/L C-Reactive Protein (0-0.29) mg/dl Total Protein (6.4-8.2) gm/dl Albumin (3.4-5.0) gm/dl Globulin (2.5-4.0) gm/dl Albumin/Globulin Ratio (0.9-2) Procalcitonin 0.07 (0-0.5) ng/ml Urine Color Urine Appearance (Clear) Urine pH (4.5-7.5) Ur Specific [place] (1.000-1.030) Urine Protein (Negative) Urine Glucose (UA) (Negative) Urine Ketones (Negative) Urine Blood (Negative) Urine Nitrite (Negative) Urine Bilirubin (Negative) Urine Urobilinogen (Negative) Ur Leukocyte Esterase (Negative) Urine WBC (Auto) (0-5) /hpf Urine RBC (Auto) (0-4) /hpf U Hyaline Cast (Auto) (0-5) /lpf U Epithel Cells (Auto) (0-5) /lpf Urine Bacteria (Auto) (Negative) Fluid Comment Synovial Source KNEE Synovial Color RED Synovial Appearance CLOUDY Synovial WBC 85056 H (0-200) /ul Synovial RBC 21827 /uL Synovial Polynuclear % 89.1 % Synovial Mononuclear % 10.9 % Lyme Disease IgG Ab Negative (Negative) Lyme Disease IgM Ab Negative (Negative) COVID-19 Eval Order SARS-CoV-2 (PCR) (Negative) Influenza Type A (PCR) (Neg) Influenza Type B (PCR) (Neg) RSV (RT-PCR) (Neg) 10/30/20 10/30/20 Range/Units 23:12 23:12 WBC (4.8-10.8) K/uL RBC (4.7-6.1) M/uL Hgb (14.0-18.0) g/dL Hct (42-52) % MCV (80-100) fL MCH (25-34) pg MCHC (32-36) g/dL RDW Std Deviation (36.4-46.3) fL RDW Coeff of Leo (11.5-14.5) % Plt Count (130-400) K/uL MPV (7.4-10.4) fL Immature Gran % (Auto) % Neut % (Auto) % Lymph % (Auto) % [place] % (Auto) % Eos % (Auto) % Baso % (Auto) % Neut # (Auto) (1.4-6.5) K/uL Lymph # (Auto) (1.2-3.4) K/uL [place] # (Auto) (0.11-0.59) K/uL Eos # (Auto) (0-0.5) K/uL Baso # (Auto) (0-0.2) K/uL Immature Gran # (Auto) (0.00-0.02) K/uL ESR (0-14) mm/hr PT (9.0-12.0) Seconds INR (0.9-1.1) APTT (21.0-31.0) Seconds PTT Ratio Sodium (136-145) mmol/L Potassium (3.5-5.1) mmol/L Chloride (98-107) mmol/L Carbon Dioxide (21-32) mmol/L Anion Gap (3-11) BUN (7-18) mg/dl Creatinine (0.6-1.4) mg/dl Est Cr Clr Drug Dosing ml/min Est GFR ( Amer) Est GFR (Non-Af Amer) BUN/Creatinine Ratio (10-20) Glucose (70-99) mg/dl Lactate (0.4-2.0) mmol/L Calcium (8.5-10.1) mg/dl Magnesium (1.8-2.4) mg/dl Total Bilirubin (0.2-1) mg/dl AST (15-37) U/L ALT (12-78) U/L Alkaline Phosphatase (45-117) U/L Total Creatine Kinase (39-308) U/L C-Reactive Protein (0-0.29) mg/dl Total Protein (6.4-8.2) gm/dl Albumin (3.4-5.0) gm/dl Globulin (2.5-4.0) gm/dl Albumin/Globulin Ratio (0.9-2) Procalcitonin (0-0.5) ng/ml Urine Color Urine Appearance (Clear) Urine pH (4.5-7.5) Ur Specific [place] (1.000-1.030) Urine Protein (Negative) Urine Glucose (UA) (Negative) Urine Ketones (Negative) Urine Blood (Negative) Urine Nitrite (Negative) Urine Bilirubin (Negative) Urine Urobilinogen (Negative) Ur Leukocyte Esterase (Negative) Urine WBC (Auto) (0-5) /hpf Urine RBC (Auto) (0-4) /hpf U Hyaline Cast (Auto) (0-5) /lpf U Epithel Cells (Auto) (0-5) /lpf Urine Bacteria (Auto) (Negative) Fluid Comment Synovial Source Synovial Color Synovial Appearance Synovial WBC (0-200) /ul Synovial RBC /uL Synovial Polynuclear % % Synovial Mononuclear % % Lyme Disease IgG Ab (Negative) Lyme Disease IgM Ab (Negative) COVID-19 Eval Order CovFluRsv at [facility] SARS-CoV-2 (PCR) NEGATIVE (Negative) Influenza Type A (PCR) Negative (Neg) Influenza Type B (PCR) Negative (Neg) RSV (RT-PCR) Negative (Neg) Imaging Data Attestation: I personally reviewed and interpreted this imaging study as follows: Radiologist's Impression: Knee X-Ray 10/30/20 21:33 XR knee RT 3V CLINICAL HISTORY: Right knee pain. COMPARISON: Right knee radiographs July 20, 2016. FINDINGS: Alignment of the total right knee arthroplasty is anatomic. There is no periprosthetic fracture or periprosthetic lucency. Right knee soft tissue swelling is noted on lateral projection. Equivocal joint effusion is present. IMPRESSION: 1. Status post total right knee arthroplasty. Hardware intact. No periprosthetic fracture or lucency. 2. Soft tissue swelling with equivocal joint effusion. ACT 112: Negative or not required by law. Electronically signed by: Jimi Lee M.D. 10/31/2020 10:11 AM Chest X-Ray 10/30/20 23:06 XR chest 1V portable CLINICAL HISTORY: fever COMPARISON STUDY: Chest radiograph July 01, 2020. FINDINGS: Lung volumes are normal. Lungs are clear. There is no pneumothorax or pleural effusion. Cardiac size is normal. Mediastinal contours are normal. There is no evidence for pulmonary edema. IMPRESSION: No acute cardiopulmonary findings. ACT 112: Negative or not required by law. Electronically signed by: Jimi Lee M.D. 10/31/2020 9:59 AM MDM Narrative Prior records/ancillary studies reviewed. Triage Nursing notes reviewed. Additional history obtained from family. The patient's history was concerning for fever. Differential diagnosis: Etiologies such as septic joint, Lyme's disease, viral syndrome, otitis, pharyngitis, pneumonia, influenza, meningitis, urinary tract infection, sepsis, bacteremia, as well as others were entertained. Physical examination: As above ER treatment provided: An order was placed for continuous cardiac monitoring. The monitor shows a rate of 60-100 with a sinus rhythm. Tylenol, IV fluids, fentanyl, Rocephin, vancomycin On reassessment the patient felt better. Diagnostics interpreted by me: ECG: Normal sinus, normal intervals, no acute ST-T wave changes, rate of 85. Impression normal sinus rhythm interpreted by myself EKG ordered for infection I think arrhythmia is unlikely. EKG shows normal sinus rhythm with no interval abnormalities such as QT prolongation or WPW. There are no findings to suggest Brugada syndrome. Cardiac monitoring in the emergency department reveals no tachycardic or bradycardic dysrhythmia. Hypertrophic cardiomyopathy was considered but there are no clear historical elements pointing toward this. EKG is not suggestive. The QRS voltage is not extremely large and there are no suggestive Q waves. The labs revealed leukocytosis, elevated inflammatory markers, joint fluid analysis with elevated WBCs concerning for infection Imaging studies: Knee x-ray with joint replacement per my interpretation Chest x-ray with no acute consolidation, pneumothorax or free air mitral rotation Consultation: A consultation was placed with Dr. Lincoln who states to do joint aspiration of the knee and sent for culture and admit to medicine and he will be consulted. I spoke to Dr. Toro, medicine and will evaluate the patient. The case was discussed and diagnostics were reviewed. The patient was evaluated in the ER for further treatment. This appears to be consistent with possible septic joint of the right knee. This would be recurrent for the patient. He was started on broad-spectrum antibiotics. Fluid analysis was sent. Medicine was consulted. Orthopedics was consulted. He will be admitted to medicine. Family is agreeable. Covid is negative. Blood cultures are pending. By the evaluation outlined above emergent etiologies such as otitis, pharyngitis, pneumonia, meningitis, urinary tract infection, sepsis, bacteremia, as well as others were deemed relatively unlikely. The pt informed about the findings as listed above. All questions were answered and pleased with the treatment. The chart was completed utilizing [employer] Speech voice recognition software. Grammatical errors, random word insertions, pronoun errors, and incomplete sentences are an occassional consequence of this system due to software limitations, ambient noise, and hardware issues. Any formal questions or conc erns about the content, text, or information contained within the body of this dictation should be directly addressed to the physician accounting manager assistant controller for clarification. Attending Attestation: Surinder Romero MD independently saw and evaluated this patient and agree with history and physical is otherwise documented by the physician accounting manager assistant controller. See their note for full details. Patient with some diffuse tenderness of the R knee bandaged after arthrocentesis. Distally neuro in tact in RLE w/o calf swelling. Hx of replacement and revision in R knee several years ago. WBC el evated. WBC synovial fluid questions inflammatory vs infective joint. Patient related unable to ambulate 2/2 pain in R knee today. Covered broadly pending joint culture and synovial crystals with abx. Will have hospitalist eval given work up for further observation. Impression & Plan Septic joint of right knee joint Discharge Plan Visit Data Chief Complaint: Lower Extremity Injury/Pain Stated Complaint: FEVER, JOINT PAIN ED Provider: Robert Romero ED Midlevel Provider: Nicol Perea Discharge Problem: Septic joint of right knee joint Patient Disposition: Admitted As Inpatient Condition: Fair Discharge Instructions Interventions: ED Discharge Assessment Last Done: 10/31/20 01:26 Discharge Problem: Septic joint of right knee joint Qualifiers: Septic arthritis organism: due to unspecified organism Qualified Code(s): M00.9 - Pyogenic arthritis, unspecified
[2020-10-31] MEDS ORDERED: PROMETHAZINE HCL 12.5 MG in SODIUM CHLORIDE 0.9% 50 ML IV PRN (01:43)
[2020-10-31] MEDS ORDERED: GLUCAGON FOR INJ 1 MG VIAL SQ PRN (01:43)
[2020-10-31] MEDS ORDERED: ACETAMINOPHEN 325 MG TAB PO PRN (01:43)
[2020-10-31] MEDS ORDERED: DEXTROSE 50% 50 ML SYRINGE IV PRN (01:43)
[2020-10-31] MEDS ORDERED: GLUCOSE 40% GEL 15 GM TUBE PO PRN (01:43)
[2020-10-31] MEDS ORDERED: GLUCOSE 10 TABS/TUBE PO PRN (01:43)
[2020-10-31] MEDS ORDERED: CARBOHYDRATES FOR HYPOGLYCEMIA PO PRN (01:43)
[2020-10-31] MEDS: SODIUM CHLORIDE 0.9% 1000ML 1,000 ML IV SCH ×2 (01:45→17:52)
[2020-10-31] MEDS ORDERED: CEFEPIME CONSULT ACTIVE PRN (02:02)
[2020-10-31] MEDS: CEFEPIME 2,000 MG in SYRINGE 0 ML IV SCH (02:19)
[2020-10-31] MEDS: INSULIN ASPART 100 UNITS/ML 3 ML PEN SC SCH ×5 (03:52→20:59)
[2020-10-31] MEDS: DAPTOmycin 375 MG in SYRINGE 0 ML IV SCH (04:20)
[2020-10-31 06:22] LABS: Basophils # (auto) 0.02 K/uL (0-0.2); Basophils % (auto) 0.2 %; Eosinophils # (auto) 0.49 K/uL (0-0.5); Eosinophils % (auto) 5.3 %; Hematocrit (blood only) 39.8 % (42-52); Hemoglobin 13.5 g/dL (14.0-18.0); Immature Granulocytes # (auto) 0.02 K/uL (0.00-0.02); Immature Granulocytes % (auto) 0.2 %; Lymphocytes # (auto) 1.46 K/uL (1.2-3.4); Lymphocytes % (auto) 15.7 %; Mean Corpuscular Hemoglobin 31.2 pg (25-34); Mean Corpuscular Hgb Conc 33.9 g/dL (32-36); Mean Corpuscular Volume 91.9 fL (80-100); Monocytes # (auto) 0.88 K/uL (0.11-0.59); Monocytes % (auto) 9.4 %; Neutrophils # (auto) 6.45 K/uL (1.4-6.5); Neutrophils % (auto) 69.2 %; Platelet Count 231 K/uL (130-400); RDW Coefficient of Variation 14.6 % (11.5-14.5); RDW Standard Deviation 49.5 fL (36.4-46.3); Red Blood Count 4.33 M/uL (4.7-6.1); White Blood Count 9.32 K/uL (4.8-10.8)
[2020-10-31 06:38] LABS: INR 3.5 (0.9-1.1); Partial Thromboplastin Ratio 1.7; Prothrombin Time 31.8 Seconds (9.0-12.0)
[2020-10-31 06:43] LABS: Partial Thromboplastin Time 45.9 Seconds (21.0-31.0)
[2020-10-31 07:04] LABS: BUN Creatinine Ratio 13.7 (10-20); Calcium 8.3 mg/dl (8.5-10.1); Creatinine Clr Calc Pharmacy 44.8 ml/min; Est GFR (African American) 49.5; Est GFR (Non-African American) 42.7; Potassium 3.8 mmol/L (3.5-5.1)
[2020-10-31] MEDS: traMADol HCL 50 MG TABLET PO PRN (07:09)
[2020-10-31] MEDS ORDERED: lisinopril 20 MG TAB PO SCH ×2 (09:00)
[2020-10-31] MEDS: ASPIRIN 81 MG ECTAB PO SCH (09:34)
[2020-10-31] MEDS: FERROUS SULFATE 325 MG TAB PO SCH (09:35)
[2020-10-31] MEDS: INSULIN GLARGINE SOLOSTAR 100 UNITS/ML 3 ML PEN SC SCH ×2 (09:36→21:01)
[2020-10-31] MEDS: FINASTERIDE 5 MG TAB PO SCH (09:36)
[2020-10-31] MEDS: allopurinoL 100 MG TAB PO SCH (09:36)
[2020-10-31] MEDS: HYDROmorphone INJ 0.5 MG/0.5 ML SYR IV PRN ×3 (09:45→20:57)
--- NOTE | 2020-10-31 10:00 | XRay Report ---
XR chest 1V portable CLINICAL HISTORY: fever COMPARISON STUDY: Chest radiograph July 01, 2020. FINDINGS: Lung volumes are normal. Lungs are clear. There is no pneumothorax or pleural effusion. Car diac size is normal. Mediastinal contours are normal. There is no evidence for pulmonary edema. IMPRESSION: No acute cardiopulmonary findings. ACT 112: Negative or not required by law. Electronically signed by: Jimi Lee M.D. 10/31/2020 9:59 AM
--- NOTE | 2020-10-31 10:12 | XRay Report ---
XR knee RT 3V CLINICAL HISTORY: Right knee pain. COMPARISON: Right knee radiographs July 20, 2016. FINDINGS: Alignment of the total right knee arthroplasty is anatomic. There is no periprosthetic fra cture or periprosthetic lucency. Right knee soft tissue swelling is noted on lateral projection. Equi vocal joint effusion is present. IMPRESSION: 1. Status post total right knee arthroplasty. Hardware intact. No periprosthetic fracture or lucency. 2. Soft tissue swelling with equivocal joint effusion. ACT 112: Negative or not required by law. Electronically signed by: Jimi Lee M.D. 10/31/2020 10:11 AM
[2020-10-31] MEDS ORDERED: Nursing to Pharmacy Communication SCH (10:45)
--- NOTE | 2020-10-31 16:38 | Hospitalist Progress Note ---
Date of Service October 31, 2020 Assessment & Plan (1) Septic arthritis: Concern for possible septic arthritis of prosthetic knee joint. Cont braod spectrum antibiotics. (2) Hypertension, uncontrolled: cont amlodpine and lisinopril per home regimen. (3) BPH loc w urin obs/LUTS: cont finasteride per home regimen. (4) Weakness: generalized-PT/OT assessments. (5) DVT prophylaxis: Hold chemoprophylaxis in setting of upcoming procedure Full Code Dispo-to OR tomorrow and then uncertain. 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 Review of Systems Review of Systems: All systems reviewed & are unremarkable except as noted in Subjective Physical Exam Physical Exam: CONSTITUTIONAL: WNWD, vitals as above, generally well- appearing EYES: normal conjunctivae, no scleral icterus ENT: external ear and nose normal, oropharynx clear, MMM RESPIRATORY: clear to auscultation bilaterally, no crackles, rales or wheezes, normal respiratory effort CARDIOVASCULAR: regular rate and rhythm, S1 and 2 heard without murmurs, gallops or rubs, no JVD, no peripheral edema GASTROINTESTINAL: soft, nontender, nondistended, no guarding MUSCULOSKELETAL: strength 5/5 throughout, R KNEE: good ROM flexion and extension, no effusion and no point tenderness at this time SKIN: warm and dry NEUROLOGIC: CN 2-12 grossly intact, no sensory deficit, normal cognition, normal speech PSYCHIATRIC: alert cooperative and oriented to person, place and time. Results & Data Results & Data ([facility]) Vital Signs (Past 12 Hours) Vital Signs Temp Pulse Resp BP BP Pulse Ox 10/31/20 14:59 70 18 143/73 H 95 10/31/20 07:35 36.9 C 87 18 158/88 H 92 Laboratory Results Short CBC 10/30/20 10/31/20 Range/Units 21:56 05:43 WBC 12.23 H 9.32 (4.8-10.8) K/uL Hgb 14.1 13.5 L (14.0-18.0) g/dL Hct 42.6 39.8 L (42-52) % Plt Count 230 231 (130-400) K/uL BMP 10/30/20 10/31/20 21:56 05:43 Sodium 138 141 Potassium 4.0 3.8 Chloride 107 110 H Carbon Dioxide 25 25 BUN 22 H 22 H Creatinine 1.58 H 1.60 H Glucose 96 109 H Calcium 9.4 8.3 L Cardiac Enzymes 10/30/20 Range/Units 21:56 Total Creatine Kinase 82 (39-308) U/L Liver Function 10/30/20 Range/Units 21:56 Total Bilirubin 0.4 (0.2-1) mg/dl AST 14 L (15-37) U/L ALT 21 (12-78) U/L Alkaline Phosphatase 60 (45-117) U/L Albumin 3.4 (3.4-5.0) gm/dl Urine 10/30/20 Range/Units 20:20 Urine Color Yellow Urine Appearance Clear (Clear) Urine pH 5.0 (4.5-7.5) Ur Specific [place] 1.025 (1.000-1.030) Urine Protein 3+ H (Negative) Urine Glucose (UA) 3+ H (Negative) Medications Administered Current Inpatient Medications Acetaminophen (Acetaminophen 325 Mg Tab) 650 mg PO Q4H PRN PRN Reason: Pain or Fever Stop: 11/30/20 01:42 Allopurinol (Allopurinol 100 Mg Tab) 200 mg PO DAILY JOYCE Stop: 11/30/20 08:59 Last Admin: 10/31/20 09:36 Dose: 200 mg Documented by: Amlodipine Besylate (Amlodipine Besylate 5 Mg Tab) 10 mg PO HS JOYCE Stop: 11/30/20 20:59 Aspirin (Aspirin 81 Mg Ectab) 81 mg PO DAILY JOYCE Stop: 11/30/20 08:59 Last Admin: 10/31/20 09:34 Dose: Not Given Documented by: Dextrose (Dextrose 50% 50 Ml Syringe) 25 - 50 ml IV UD PRN; Protocol PRN Reason: Hypoglycemia Protocol Stop: 11/30/20 01:42 Ferrous Sulfate (Ferrous Sulfate 325 Mg Tab) 325 mg PO DAILY JOYCE Stop: 11/30/20 08:59 Last Admin: 10/31/20 09:35 Dose: Not Given Documented by: Finasteride (Finasteride 5 Mg Tab) 5 mg PO DAILY JOYCE Stop: 11/30/20 08:59 Last Admin: 10/31/20 09:36 Dose: 5 mg Documented by: Glucagon (Glucagon For Inj 1 Mg Vial) 1 mg SQ UD PRN; Protocol PRN Reason: Hypoglycemia Protocol Stop: 11/30/20 01:42 Glucose (Glucose 10 Tabs/Tube) 4 - 8 tabs PO UD PRN; Protocol PRN Reason: Hypoglycemia Protocol Stop: 11/30/20 01:42 Glucose (Glucose 40% Gel 15 Gm Tube) 15 - 30 gm PO UD PRN; Protocol PRN Reason: Hypoglycemia Protocol Stop: 11/30/20 01:42 Hydromorphone HCl (Hydromorphone Inj 0.5 Mg/0.5 Ml Syr) 0.25 mg IV Q3H PRN PRN Reason: Pain Stop: 11/14/20 01:42 Last Admin: 10/31/20 15:00 Dose: 0.25 mg Documented by: Sodium Chloride (Nss 1000ml) 1,000 mls @ 60 mls/hr IV .[id number] [facility] Stop: 11/30/20 01:42 Last Infusion: 10/31/20 14:17 Dose: 60 mls/hr Documented by: Promethazine HCl 12.5 mg/ (Sodium Chloride) 50.5 mls @ 202 mls/hr IV Q6H PRN PRN Reason: Nausea And Vomiting Stop: 11/30/20 01:42 Daptomycin 375 mg/ Syringe 7.5 mls @ 3.75 mls/min IV Q24H JOYCE; Protocol Stop: 12/12/20 03:59 Last Admin: 10/31/20 04:20 Dose: 3.75 mls/min Documented by: Cefepime HCl 2,000 mg/ Syringe 20 mls @ 5 mls/min IV Q24H JOYCE; Protocol Stop: 12/12/20 01:59 Last Admin: 10/31/20 02:19 Dose: 5 mls/min Documented by: Insulin Aspart (Insulin Aspart 100 Units/Ml 3 Ml Pen) 0 units SC ACHS [facility] Stop: 11/30/20 11:29 Last Admin: 10/31/20 13:02 Dose: Not Given Documented by: Insulin Glargine (Insulin Glargine Solostar 100 Units/Ml 3 Ml Pen) 20 units SC BID JOYCE Stop: 11/30/20 08:59 Last Admin: 10/31/20 09:36 Dose: 20 units Documented by: Miscellaneous (Carbohydrates For Hypoglycemia ) 15 - 30 gm PO UD PRN PRN Reason: Hypoglycemia Protocol Stop: 11/30/20 01:42 Miscellaneous Information (Daptomycin Consult Active) 1 ea N/A UD PRN PRN Reason: Consult Stop: 11/30/20 08:59 Miscellaneous Information (Cefepime Consult Active) 1 ea N/A UD PRN PRN Reason: Consult Stop: 11/30/20 02:01 Tramadol HCl (Tramadol Hcl 50 Mg Tablet) 25 - 50 mg PO Q4H PRN PRN Reason: Pain Stop: 11/30/20 01:42 Last Admin: 10/31/20 07:09 Dose: 50 mg Documented by:
[2020-10-31] MEDS: amLODIPine BESYLATE 5 MG TAB PO SCH (21:04)
[2020-10-31] MEDS ORDERED: PHYTONADIONE 5 MG in SODIUM CHLORIDE 0.9% 50 ML IV ONE (23:43)
[2020-11-01] MEDS ORDERED: Nursing to Pharmacy Communication SCH (01:30)
[2020-11-01] MEDS: INSULIN ASPART 100 UNITS/ML 3 ML PEN SC SCH ×4 (05:40→21:00)
[2020-11-01] MEDS: CEFEPIME 2,000 MG in SYRINGE 0 ML IV SCH ×2 (05:40→17:21)
[2020-11-01] MEDS: DAPTOmycin 375 MG in SYRINGE 0 ML IV SCH (05:40)
--- NOTE | 2020-11-01 06:36 | Electrocardiogram Report ---
Test Reason : Blood Pressure : / mmHG Vent. Rate : 085 BPM Atrial Rate : 085 BPM P-R Int : 204 ms QRS Dur : 082 ms QT Int : 338 ms P-R-T Axes : 031 006 067 degrees QTc Int : 402 ms Sinus rhythm with Premature atrial complexes Otherwise normal ECG When compared with ECG of 01-JUL-2020 19:29, Premature atrial complexes are now Present Nonspecific T wave abnormality no longer evident in Anterior leads Confirmed by Jesus Hyde ([id number]) on 11/01/2020 6:36:43 AM Referred By: REFERRED SELF Confirmed By:Jesus Hyde
[2020-11-01 07:05] LABS: Basophils # (auto) 0.03 K/uL (0-0.2); Basophils % (auto) 0.3 %; Eosinophils # (auto) 0.61 K/uL (0-0.5); Eosinophils % (auto) 6.9 %; Hematocrit (blood only) 37.7 % (42-52); Immature Granulocytes # (auto) 0.02 K/uL (0.00-0.02); Immature Granulocytes % (auto) 0.2 %; Lymphocytes # (auto) 1.44 K/uL (1.2-3.4); Lymphocytes % (auto) 16.2 %; Mean Corpuscular Hemoglobin 31.1 pg (25-34); Mean Corpuscular Hgb Conc 34.5 g/dL (32-36); Mean Corpuscular Volume 90.2 fL (80-100); Monocytes % (auto) 11.3 %; Neutrophils # (auto) 5.78 K/uL (1.4-6.5); Neutrophils % (auto) 65.1 %; Platelet Count 225 K/uL (130-400); RDW Coefficient of Variation 14.2 % (11.5-14.5); Red Blood Count 4.18 M/uL (4.7-6.1); White Blood Count 8.88 K/uL (4.8-10.8)
[2020-11-01 07:19] LABS: INR 1.6 (0.9-1.1); Prothrombin Time 15.9 Seconds (9.0-12.0)
[2020-11-01] MEDS: ASPIRIN 81 MG ECTAB PO SCH (07:30)
[2020-11-01] MEDS: FERROUS SULFATE 325 MG TAB PO SCH (07:30)
[2020-11-01 07:32] LABS: BUN Creatinine Ratio 14.6 (10-20); Calcium 8.4 mg/dl (8.5-10.1); Creatinine Clr Calc Pharmacy 51.9 ml/min; Est GFR (African American) 59.2; Est GFR (Non-African American) 51.1; Potassium 3.9 mmol/L (3.5-5.1)
[2020-11-01 07:33] LABS: C Reactive Protein 9.25 mg/dl (0-0.29)
[2020-11-01] MEDS: HYDROmorphone INJ 0.5 MG/0.5 ML SYR IV PRN ×3 (07:33→19:47)
[2020-11-01] MEDS: INSULIN GLARGINE SOLOSTAR 100 UNITS/ML 3 ML PEN SC SCH ×2 (07:34→21:03)
[2020-11-01] MEDS: FINASTERIDE 5 MG TAB PO SCH (07:35)
[2020-11-01] MEDS: lisinopril 20 MG TAB PO SCH (07:35)
[2020-11-01] MEDS: allopurinoL 100 MG TAB PO SCH (07:35)
[2020-11-01] MEDS: COLCHICINE 0.6 MG TAB PO SCH ×2 (12:25→20:58)
--- NOTE | 2020-11-01 15:50 | Hospitalist Progress Note ---
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 Continue with daptomycin and cefepime. PDX evaluation is pending. (2) Hypertension, uncontrolled: cont amlodpine and lisinopril per home regimen. (3) BPH loc w urin obs/LUTS: cont finasteride per home regimen. (4) Weakness: Work with PT/OT. (5) DVT prophylaxis: Hold chemoprophylaxis in setting of upcoming procedure Full Code Admission and Anticipated Discharge Date Admission Date: October 31, 2020 Subjective Okay this morning. Reports currently pain is well controlled. Rest of the review of system is negative. Does report headache. Review of Systems Review of Systems: All systems reviewed & are unremarkable except as noted in HPI & below Physical Exam Physical Exam: General: A&Ox3 HENT: NCAT, MMM, EOMI Eyes: PERRLA Neck: Supple, normal range of motion CVS: normal rate and rhythm Resp: b/l good breath sounds Abdomen: Soft, ND/NT, +BS Extremities: No c/c/e Neuro: face symmetric, strength grossly equal, no focal deficit Skin: warm and dry, no rashes/lesions/errythema MSK: normal ROM, no joint swelling/erythema Results & Data Results & Data ([facility]) Vital Signs (Past 12 Hours) Vital Signs Temp Pulse Resp BP Pulse Ox 11/01/20 15:27 36.7 C 67 16 138/74 94 11/01/20 07:28 36.6 C 72 16 160/83 H 93
--- NOTE | 2020-11-01 18:58 | Orthopedic Consultation ---
Date of Consultation November 01, 2020 Assessment & Plan (1) Pseudogout of right knee: Arthrocentesis of right knee positive for pseudogout. Negative cultures to date. We will continue to monitor, trend inflammatory labs, worsening symptoms or labs could suggest superimposed periprosthetic joint infection which would then require I+D. Continue with treatment for pseudogout, colchicine started today. Patient may weight-bear as tolerates on his right lower extremity, ice and elevation. Thank you for the consultation. History of Present Illness Reason for Consultation: Painful right total knee arthroplasty Attending Physician: Chel Roberts MD History of Present Illness The patient is a 70-year-old male who presented to [facility] on 10/30/2020 secondary to acute atraumatic right knee pain. Has past surgical history for right total knee arthroplasty in March 2016 with [place], acute periprosthetic joint infection, underwent removal with antibiotic cement spacer and revision right total knee in June 2016. Patient reports that at baseline he has limited range of motion and pain with giving out however on 10/29/2020 the patient reports increasing pain to the right knee which prompted him to be seen at the emergency department on 10/30/2020. Denies any numbness or tingling, denies any fevers, chills, nausea, vomiting, shortness of breath or chest pain. Has a history of gout in his left foot. Patient does report that his pain has improved slightly since his admission. Allergies Allergy/AdvReac Type Severity Reaction Status Date / Time morphine AdvReac Severe Vomiting Verified 10/30/20 21:18 rosuvastatin [From Crestor] AdvReac Intermediate Cramping Verified 10/30/20 21:18 of the Muscles Home Medications Medication Instructions Recorded Confirmed Type Lantus Solostar U-100 Insulin 42 unit SUBCUT BID 10/18/18 10/30/20 History cholecalciferol (vitamin D3) 1,000 unit PO QAM 10/18/18 10/30/20 History [Vitamin D3] ferrous sulfate 325 mg PO DAILY 10/18/18 10/30/20 History metformin 500 mg PO AMHS 08/06/19 10/30/20 History warfarin 5 mg PO WK 08/06/19 10/30/20 History Jardiance 10 mg PO DAILY 03/30/20 10/30/20 History aspirin 81 mg PO DAILY 03/30/20 10/30/20 History warfarin 10 mg PO [id number] 03/30/20 10/30/20 History lisinopril 20 mg PO DAILY 03/31/20 10/30/20 History finasteride 5 mg tablet 5 mg PO DAILY #90 tab 05/25/20 10/30/20 Rx allopurinol 200 mg PO DAILY 07/01/20 10/30/20 History amlodipine [Norvasc] 10 mg PO HS 10/30/20 10/30/20 History Patient History Medical History (Updated 11/01/20 @ 18:54 by Mp Le DO) Anxiety Asthma in remission BPH (benign prostatic hyperplasia) BPH loc w urin obs/LUTS Broken rib r/t old sports injury, shows up on CXRs as abnormal, but was very remote (in college) and does not cause any pain. Cataract Chronic kidney disease Stage III. follows w/ dr. 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 Galloway, has not had symptoms beyond muscle twitches since the early Osteoarthritis Polyarthritis Prostate cancer screening Thyroid nodule Surgical History H/O arthroscopic knee surgery History of appendectomy History of arthroscopy of left knee History of cardiac cath 15 years ago - CP led to cath - [place] - no stents/angioplasty, ruled indigestion - does not follow w/ cardio History of carpal tunnel release BL History of carpal tunnel surgery History of cystoscopy History of knee joint replacement x 2 rt knee History of repair of rotator cuff BL History of surgery LLE - hardware present History of tooth extraction History of total right knee replacement S/P appendectomy S/P rotator cuff repair Status post biopsy of thyroid gland benign Family History Daughter History of anesthesia reaction PONV Grandfather (Paternal) Family history of diabetes mellitus Mother Family history of diabetes mellitus Father Family history of diabetes mellitus Social History Smoking Status: Never smoker Tobacco Type: Smokeless Tobacco (Dip or Chew) Second Hand Exposure: Yes ( smokes two cartons week); Do You Dip or Chew Tobacco: Yes; Hx Alcohol Use: No Hx Substance Use: No Preferred Language: Urdu Communication Ability: Effective 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 Crop Farmer Required: No Beliefs That Will Affect Care: None marital status: Current Living Situation: Spouse current occupational status: retired Other Information That Helps Us Care for You: No Feels Safe at Home: Yes Safety Concerns: Feels Safe At This Time Assistive Devices: Walker Review of Systems Review of Systems: All systems reviewed & are unremarkable except as noted in HPI & below Constitutional: as per Subjective / HPI Physical Exam Physical Exam: Right lower extremity is neurovascular sensory intact grossly, +2 dorsalis pedis pulse, mild effusion/edema to the right knee, mild erythema and warmth. Limited range of motion 0-70 with mild discomfort. Incision is clean dry and intact. Constitutional: WD/WN, vitals as above Results & Data ([facility]) Vital Signs (Past 12 Hours) Vital Signs Temp Pulse Resp BP Pulse Ox 11/01/20 15:27 36.7 C 67 16 138/74 94 11/01/20 07:28 36.6 C 72 16 160/83 H 93 Laboratory Results H & H 10/30/20 10/31/20 11/01/20 Range/Units 21:56 05:43 06:36 Hgb 14.1 13.5 L 13.0 L (14.0-18.0) g/dL Hct 42.6 39.8 L 37.7 L (42-52) % Coagulation 10/30/20 10/31/20 11/01/20 Range/Units 21:56 05:43 06:36 INR 3.0 H 3.5 H 1.6 H (0.9-1.1) 11/01/20 11/01/20 11/01/20 Range/Units 16:59 11:59 06:36 WBC (4.8-10.8) K/uL RBC (4.7-6.1) M/uL Hgb (14.0-18.0) g/dL Hct (42-52) % MCV (80-100) fL MCH (25-34) pg MCHC (32-36) g/dL RDW Std Deviation (36.4-46.3) fL RDW Coeff of Leo (11.5-14.5) % Plt Count (130-400) K/uL MPV (7.4-10.4) fL Immature Gran % (Auto) % Neut % (Auto) % Lymph % (Auto) % Frederick % (Auto) % Eos % (Auto) % Baso % (Auto) % Neut # (Auto) (1.4-6.5) K/uL Lymph # (Auto) (1.2-3.4) K/uL Frederick # (Auto) (0.11-0.59) K/uL Eos # (Auto) (0-0.5) K/uL Baso # (Auto) (0-0.2) K/uL Immature Gran # (Auto) (0.00-0.02) K/uL ESR (0-14) mm/hr PT 15.9 H (9.0-12.0) Seconds INR 1.6 H (0.9-1.1) Sodium (136-145) mmol/L Potassium (3.5-5.1) mmol/L Chloride (98-107) mmol/L Carbon Dioxide (21-32) mmol/L Anion Gap (3-11) BUN (7-18) mg/dl Creatinine (0.6-1.4) mg/dl Est Cr Clr Drug Dosing ml/min Est GFR ( Amer) Est GFR (Non-Af Amer) BUN/Creatinine Ratio (10-20) Glucose (70-99) mg/dl POC Glucose 84 91 (70-99) mg/dl Calcium (8.5-10.1) mg/dl C-Reactive Protein (0-0.29) mg/dl Synovial Crystals 11/01/20 11/01/20 11/01/20 Range/Units 06:36 06:36 06:36 WBC 8.88 (4.8-10.8) K/uL RBC 4.18 L (4.7-6.1) M/uL Hgb 13.0 L (14.0-18.0) g/dL Hct 37.7 L (42-52) % MCV 90.2 (80-100) fL MCH 31.1 (25-34) pg MCHC 34.5 (32-36) g/dL RDW Std Deviation 47.0 H (36.4-46.3) fL RDW Coeff of Leo 14.2 (11.5-14.5) % Plt Count 225 (130-400) K/uL MPV 10.0 (7.4-10.4) fL Immature Gran % (Auto) 0.2 % Neut % (Auto) 65.1 % Lymph % (Auto) 16.2 % Frederick % (Auto) 11.3 % Eos % (Auto) 6.9 % Baso % (Auto) 0.3 % Neut # (Auto) 5.78 (1.4-6.5) K/uL Lymph # (Auto) 1.44 (1.2-3.4) K/uL Frederick # (Auto) 1.00 H (0.11-0.59) K/uL Eos # (Auto) 0.61 H (0-0.5) K/uL Baso # (Auto) 0.03 (0-0.2) K/uL Immature Gran # (Auto) 0.02 (0.00-0.02) K/uL ESR 48 H (0-14) mm/hr PT (9.0-12.0) Seconds INR (0.9-1.1) Sodium 140 (136-145) mmol/L Potassium 3.9 (3.5-5.1) mmol/L Chloride 109 H (98-107) mmol/L Carbon Dioxide 26 (21-32) mmol/L Anion Gap 5.0 (3-11) BUN 20 H (7-18) mg/dl Creatinine 1.38 (0.6-1.4) mg/dl Est Cr Clr Drug Dosing 51.9 ml/min Est GFR ( Amer) 59.2 Est GFR (Non-Af Amer) 51.1 BUN/Creatinine Ratio 14.6 (10-20) Glucose 77 (70-99) mg/dl POC Glucose (70-99) mg/dl Calcium 8.4 L (8.5-10.1) mg/dl C-Reactive Protein 9.25 H (0-0.29) mg/dl Synovial Crystals 11/01/20 10/31/20 10/30/20 Range/Units 05:39 20:29 22:50 WBC (4.8-10.8) K/uL RBC (4.7-6.1) M/uL Hgb (14.0-18.0) g/dL Hct (42-52) % MCV (80-100) fL MCH (25-34) pg MCHC (32-36) g/dL RDW Std Deviation (36.4-46.3) fL RDW Coeff of Leo (11.5-14.5) % Plt Count (130-400) K/uL MPV (7.4-10.4) fL Immature Gran % (Auto) % Neut % (Auto) % Lymph % (Auto) % Frederick % (Auto) % Eos % (Auto) % Baso % (Auto) % Neut # (Auto) (1.4-6.5) K/uL Lymph # (Auto) (1.2-3.4) K/uL Frederick # (Auto) (0.11-0.59) K/uL Eos # (Auto) (0-0.5) K/uL Baso # (Auto) (0-0.2) K/uL Immature Gran # (Auto) (0.00-0.02) K/uL ESR (0-14) mm/hr PT (9.0-12.0) Seconds INR (0.9-1.1) Sodium (136-145) mmol/L Potassium (3.5-5.1) mmol/L Chloride (98-107) mmol/L Carbon Dioxide (21-32) mmol/L Anion Gap (3-11) BUN (7-18) mg/dl Creatinine (0.6-1.4) mg/dl Est Cr Clr Drug Dosing ml/min Est GFR ( Amer) Est GFR (Non-Af Amer) BUN/Creatinine Ratio (10-20) Glucose (70-99) mg/dl POC Glucose 81 93 (70-99) mg/dl Calcium (8.5-10.1) mg/dl C-Reactive Protein (0-0.29) mg/dl Synovial Crystals
[2020-11-01] MEDS: amLODIPine BESYLATE 5 MG TAB PO SCH (20:58)
--- NOTE | 2020-11-01 21:33 | Consultation Report ---
DATE OF CONSULTATION: 11/01/2020 HISTORY OF PRESENT ILLNESS: This is a 70-year-old gentleman well known to the orthopedic service, presented to the Emergency Department with symptoms of fever, chills, right leg and knee pain, but it worsened approximately 24 hours prior to admission. He had some swelling, which also was irritated with motion of the knee. Temperature at home was 101 degrees. No other associated symptoms with the exception of difficulty ambulation. The patient had a complicated history related to his knee. He had initial total knee arthroplasty performed by Dr. Bueno in 2008. He had done well until approximately 2015, at which point, attempted antibiotics. This failed. He had undergone explantation with an antibiotic spacer for 6 weeks. He had IV antibiotics with a PICC line and apparently that time he cleared the infection, had a replantation with revision total knee arthroplasty with long stems in the femur and in the tibia on 07/20/2016. He did quite well with that until this most recent episode where he had fevers and chills and pain in the right knee. He presented to the Emergency Department. He was evaluated, had an aspirate taken from the knee and then admitted to the hospitalist service for further care and management. The patient's aspirate then noted to have over 34,000 white count, initially with a negative Gram stain. The patient was seen at bedside and noted to have improvement with IV antibiotics with relation to slightly improved range of motion; however, still having significant discomfort with the right knee. PAST MEDICAL HISTORY: Hypertension, history of DVT -- on Coumadin, diabetes mellitus type 2 -- insulin requiring, chronic renal insufficiency, multiple sclerosis, restless legs syndrome, neuropathy, hyperlipidemia, history of septic right total knee arthroplasty. He has anxiety, asthma, BPH, cataracts, extrapyramidal disease and abnormal movement disorder, GERD, history of kidney stones and thyroid nodule. PAST SURGICAL HISTORY: Multiple surgeries on the right knee as noted above, appendectomy, shoulder surgery, ORIF of tib-fib fracture, cardiac catheterization, carpal tunnel release bilateral, cystoscopy, tooth extraction, biopsy of thyroid. ALLERGIES: MORPHINE WITH SEVERE VOMITING, CRESTOR WITH CRAMPING IN THE MUSCLES. MEDICATIONS: Please note the list in the medical record. SOCIAL HISTORY: Denies smoking; however, he does use smokeless tobacco, secondhand smoke exposure with his . Denies alcohol or drug use. He is and lives with his spouse and he is retired. PHYSICAL EXAMINATION: This is a 70-year-old gentleman lying supine in his hospital room bed. He is alert and oriented x3. Speech clear and fluent. Affect is appropriate. Focused exam of the right lower extremity demonstrates a well-healed anterior knee incision, local cellulitis, effusion and tenderness to palpation at the right knee. Range of motion is negative 3 degrees of extension to 115 degrees of flexion limited by discomfort and swelling in the right knee. The patella is ballottable. Laboratories, radiographs and microbiology reports are reviewed. IMPRESSION: 1. Septic right total knee arthroplasty. 2. Cellulitis, right lower extremity. RECOMMENDATIONS: I spoke to the patient at length and spoke to Dr. Le regarding this patient's care. The patient will possibly require extensive debridement of the right knee with polyethylene exchange with suppressive antibiotics. The chance of doing a full explantation with complete eradication of this now secondary infection be highly unlikely. The patient will be made n.p.o. after midnight and further assessment continued. Continue IV antibiotics and hold anticoagulation for the near term. Thank you for the opportunity to consult in the care of this patient.
[2020-11-02] MEDS ORDERED: Nursing to Pharmacy Communication SCH ×2 (02:00→16:15)
[2020-11-02] MEDS: HYDROmorphone INJ 0.5 MG/0.5 ML SYR IV PRN ×4 (04:28→22:34)
[2020-11-02] MEDS: DAPTOmycin 375 MG in SYRINGE 0 ML IV SCH (05:49)
[2020-11-02] MEDS: CEFEPIME 2,000 MG in SYRINGE 0 ML IV SCH ×2 (05:49→17:00)
[2020-11-02] MEDS: INSULIN ASPART 100 UNITS/ML 3 ML PEN SC SCH ×4 (05:59→20:42)
[2020-11-02 06:44] LABS: Basophils # (auto) 0.03 K/uL (0-0.2); Basophils % (auto) 0.4 %; Eosinophils # (auto) 0.58 K/uL (0-0.5); Eosinophils % (auto) 8.1 %; Hematocrit (blood only) 40.2 % (42-52); Hemoglobin 13.9 g/dL (14.0-18.0); Immature Granulocytes # (auto) 0.01 K/uL (0.00-0.02); Immature Granulocytes % (auto) 0.1 %; Lymphocytes # (auto) 1.39 K/uL (1.2-3.4); Lymphocytes % (auto) 19.3 %; Mean Corpuscular Hgb Conc 34.6 g/dL (32-36); Mean Corpuscular Volume 89.5 fL (80-100); Mean Platelet Volume 9.7 fL (7.4-10.4); Monocytes # (auto) 0.78 K/uL (0.11-0.59); Monocytes % (auto) 10.8 %; Neutrophils # (auto) 4.41 K/uL (1.4-6.5); Neutrophils % (auto) 61.3 %; Platelet Count 236 K/uL (130-400); RDW Coefficient of Variation 13.9 % (11.5-14.5); RDW Standard Deviation 45.4 fL (36.4-46.3); Red Blood Count 4.49 M/uL (4.7-6.1)
[2020-11-02 06:59] LABS: INR 1.1 (0.9-1.1); Prothrombin Time 11.1 Seconds (9.0-12.0)
[2020-11-02 07:22] LABS: BUN Creatinine Ratio 18.7 (10-20); C Reactive Protein 5.86 mg/dl (0-0.29); Calcium 8.9 mg/dl (8.5-10.1); Creatinine Clr Calc Pharmacy 54.3 ml/min; Est GFR (African American) 62.5; Est GFR (Non-African American) 53.9; Potassium 4.1 mmol/L (3.5-5.1)
[2020-11-02] MEDS: lisinopril 20 MG TAB PO SCH (07:42)
[2020-11-02] MEDS: COLCHICINE 0.6 MG TAB PO SCH ×2 (07:42→20:39)
[2020-11-02] MEDS: FINASTERIDE 5 MG TAB PO SCH (07:42)
[2020-11-02] MEDS: ASPIRIN 81 MG ECTAB PO SCH (07:43)
[2020-11-02] MEDS: INSULIN GLARGINE SOLOSTAR 100 UNITS/ML 3 ML PEN SC SCH ×2 (07:43→20:43)
[2020-11-02] MEDS: FERROUS SULFATE 325 MG TAB PO SCH (07:43)
--- NOTE | 2020-11-02 15:22 | Hospitalist Progress Note ---
Date of Service November 02, 2020 Assessment & Plan (1) Septic arthritis: S/p arthrocentesis; concern for possible pseudogout or septic arthritis Appreciate orthopedics input. Continue with cefepime and daptomycin for now. Orthopedic started patient on colchicine for possible pseudogout. If no improvement, would possibly require I&D. (2) Hypertension, uncontrolled: cont amlodpine and lisinopril per home regimen. (3) BPH loc w urin obs/LUTS: cont finasteride per home regimen. (4) Weakness: Work with PT/OT. (5) DVT prophylaxis: Lovenox. Full Code Admission and Anticipated Discharge Date Admission Date: October 31, 2020 Subjective Doing okay this morning. However pain continues to be an issue. Denies any chest pain, shortness of breath, abdominal pain, diarrhea or dysuria. Rest of the review of system is negative. Review of Systems Review of Systems: All systems reviewed & are unremarkable except as noted in HPI & below Physical Exam Physical Exam: General: A&Ox3 HENT: NCAT, MMM, EOMI Eyes: PERRLA Neck: Supple, normal range of motion CVS: normal rate and rhythm Resp: b/l good breath sounds Abdomen: Soft, ND/NT, +BS Extremities: No c/c/e Neuro: face symmetric, strength grossly equal, no focal deficit Skin: warm and dry, no rashes/lesions/errythema MSK: normal ROM, no joint swelling/erythema Results & Data Results & Data ([facility]) Vital Signs (Past 12 Hours) Vital Signs Temp Pulse Resp BP Pulse Ox 11/02/20 07:28 36.7 C 81 18 162/91 H 94
[2020-11-02] MEDS: ENOXAPARIN INJ 40 MG/0.4 ML SYR SQ SCH (16:56)
[2020-11-02] MEDS: amLODIPine BESYLATE 5 MG TAB PO SCH (20:39)
[2020-11-03] MEDS ORDERED: Nursing to Pharmacy Communication SCH ×2 (02:15→15:00)
[2020-11-03] MEDS: HYDROmorphone INJ 0.5 MG/0.5 ML SYR IV PRN ×3 (05:09→13:15)
[2020-11-03] MEDS: DAPTOmycin 375 MG in SYRINGE 0 ML IV SCH (05:33)
[2020-11-03] MEDS: CEFEPIME 2,000 MG in SYRINGE 0 ML IV SCH (05:33)
[2020-11-03] MEDS: INSULIN ASPART 100 UNITS/ML 3 ML PEN SC SCH ×4 (05:53→21:17)
[2020-11-03 06:54] LABS: Basophils # (auto) 0.02 K/uL (0-0.2); Basophils % (auto) 0.3 %; Eosinophils # (auto) 0.58 K/uL (0-0.5); Eosinophils % (auto) 8.6 %; Hematocrit (blood only) 40.2 % (42-52); Hemoglobin 13.8 g/dL (14.0-18.0); Immature Granulocytes # (auto) 0.03 K/uL (0.00-0.02); Immature Granulocytes % (auto) 0.4 %; Lymphocytes # (auto) 1.38 K/uL (1.2-3.4); Lymphocytes % (auto) 20.5 %; Mean Corpuscular Hemoglobin 30.7 pg (25-34); Mean Corpuscular Hgb Conc 34.3 g/dL (32-36); Mean Corpuscular Volume 89.5 fL (80-100); Mean Platelet Volume 9.7 fL (7.4-10.4); Monocytes # (auto) 0.87 K/uL (0.11-0.59); Monocytes % (auto) 12.9 %; Neutrophils # (auto) 3.86 K/uL (1.4-6.5); Neutrophils % (auto) 57.3 %; Platelet Count 280 K/uL (130-400); RDW Coefficient of Variation 13.8 % (11.5-14.5); RDW Standard Deviation 45.3 fL (36.4-46.3); Red Blood Count 4.49 M/uL (4.7-6.1); White Blood Count 6.74 K/uL (4.8-10.8)
[2020-11-03 07:11] LABS: Prothrombin Time 10.5 Seconds (9.0-12.0)
[2020-11-03] MEDS: traMADol HCL 50 MG TABLET PO PRN (08:48)
[2020-11-03] MEDS: FINASTERIDE 5 MG TAB PO SCH (08:49)
[2020-11-03] MEDS: lisinopril 20 MG TAB PO SCH (08:49)
[2020-11-03] MEDS: ENOXAPARIN INJ 40 MG/0.4 ML SYR SQ SCH (08:50)
[2020-11-03] MEDS: ASPIRIN 81 MG ECTAB PO SCH (08:50)
[2020-11-03] MEDS: COLCHICINE 0.6 MG TAB PO SCH ×2 (08:50→21:28)
[2020-11-03] MEDS: INSULIN GLARGINE SOLOSTAR 100 UNITS/ML 3 ML PEN SC SCH ×2 (08:50→21:18)
[2020-11-03] MEDS: FERROUS SULFATE 325 MG TAB PO SCH (08:54)
--- NOTE | 2020-11-03 13:34 | Orthopedic Progress Note ---
Date of Service November 03, 2020 Assessment & Plan (1) Pseudogout of right knee: Arthrocentesis of right knee positive for pseudogout. Negative cultures to date. We will continue to monitor, trend inflammatory labs, worsening symptoms or labs could suggest superimposed periprosthetic joint infection which would then require I+D. Cultures continue to remain negative. Continue with treatment for pseudogout, continue colchicine. Patient may weight-bear as tolerates on his right lower extremity, ice and elevation. Plan for follow-up with in 10 to 14 days. Admission and Anticipated Discharge Date Admission Date: October 31, 2020 Subjective Patient sitting up in bed awake and alert. Patient states he is having some knee pain this afternoon. Pain is not severe. No other complaints. Physical Exam Physical Exam: His knee exam is fairly benign. No erythema. Mild swelling. Knee is not overtly hot compared to the left. Results & Data ([facility]) Vital Signs (Past 12 Hours) Vital Signs Temp Pulse Resp BP Pulse Ox 11/03/20 06:59 36.8 C 73 20 128/81 92
[2020-11-03] MEDS ORDERED: oxyCODONE HCL IR 5 MG TAB (IMMEDIATE RELEASE) PO PRN (14:59)
--- NOTE | 2020-11-03 15:06 | Hospitalist Progress Note ---
Date of Service November 03, 2020 Assessment & Plan (1) Pseudogout of right knee: Patient has pseudogout of right knee, appreciate input from orthopedics Joint site of p.o. fluid culture no growth, no evidence of infection: Patient does not have septic arthritis Procalcitonin level was normal on admission IV antibiotic discontinued Elevated C-reactive protein/ESR secondary to acute gout arthritis Started on colchicine Plan of care discussed with orthopedics/no plan for surgical I&D/DC n.p.o. past midnight We will start on Medrol Dosepak, NSAID avoided as patient has CKD stage III high risk for acute renal failure Right knee pain: Secondary to above DC IV Dilaudid, started on trial of oxycodone: Patient states tramadol p.o. as needed has not been effective History of lower extremity DVT DC Lovenox, no plan for procedure Coumadin resumed Patient will be discharged home with prior dose of Coumadin, does not need any bridge therapy Disposition: Plan for discharge home tomorrow Admission and Anticipated Discharge Date Admission Date: October 31, 2020 Subjective Follow-up visit for RIGHT knee pain/swelling: Patient reports feeling better, so much knee pain and swelling has improved somewhat No fever or chills, No cough or shortness of breath Antibiotic discontinued, as there is no evidence of any infection or sepsis on knee joint, cultures been negative Possible pseudogout of right knee Review of Systems Review of Systems: All systems reviewed & are unremarkable except as noted in Subjective Physical Exam Physical Exam: Physical exam: General: No acute distress, alert awake oriented x3 HEENT: PERRLA, EOMI, Heart: Regular S1-S2, no carotid bruit, no JVD, no lower extremity edema Lungs: Clear to auscultate, no wheeze or rales Abdomen: Soft nontender, no organomegaly Extremity: Right knee: Positive warmth, negative for swelling or tenderness, normal range of motion/no joint erythema Neuro: No focal neurological deficit normal speech, normal visual field, Motor strength : normal both upper and lower extremity, sensation intact Psych: Alert awake oriented x3, normal affect Results & Data Results & Data ([facility]) Vital Signs (Past 12 Hours) Vital Signs Temp Pulse Resp BP Pulse Ox 11/03/20 06:59 36.8 C 73 20 128/81 92
[2020-11-03] MEDS ORDERED: methylPREDNISolone 4 MG TAB, 6 DAY TAPER PO SCH (15:15)
[2020-11-03] MEDS ORDERED: WARFARIN SOD 5 MG TAB PO SCH (16:00)
[2020-11-03] MEDS ORDERED: WARFARIN SOD 10 MG TAB PO SCH (16:00)
[2020-11-03] MEDS: methylPREDNISolone 4 MG TAB PO SCH ×2 (18:06→21:28)
[2020-11-03 20:46] LABS: Lyme DNA PCR CSF or Synovial Not detected (Not Detected); Lyme DNA Source Synovial Fluid
[2020-11-03] MEDS: amLODIPine BESYLATE 5 MG TAB PO SCH (21:24)
[2020-11-03] MEDS: oxyCODONE HCL IR 5 MG TAB (IMMEDIATE RELEASE) PO PRN (21:24)
[2020-11-04] MEDS: oxyCODONE HCL IR 5 MG TAB (IMMEDIATE RELEASE) PO PRN ×2 (06:32→13:25)
[2020-11-04] MEDS: methylPREDNISolone 4 MG TAB PO SCH ×2 (06:33→13:18)
[2020-11-04] MEDS ORDERED: methylPREDNISolone 4 MG TAB PO SCH ×2 (07:00→21:00)
[2020-11-04 07:46] LABS: Prothrombin Time 10.4 Seconds (9.0-12.0)
[2020-11-04] MEDS: COLCHICINE 0.6 MG TAB PO SCH (09:19)
[2020-11-04] MEDS: FERROUS SULFATE 325 MG TAB PO SCH (09:19)
[2020-11-04] MEDS: lisinopril 20 MG TAB PO SCH (09:19)
[2020-11-04] MEDS: FINASTERIDE 5 MG TAB PO SCH (09:19)
[2020-11-04] MEDS: ASPIRIN 81 MG ECTAB PO SCH (09:19)
[2020-11-04] MEDS: INSULIN GLARGINE SOLOSTAR 100 UNITS/ML 3 ML PEN SC SCH (09:20)
[2020-11-04] MEDS: INSULIN ASPART 100 UNITS/ML 3 ML PEN SC SCH ×2 (09:21→13:19)
--- NOTE | 2020-11-04 12:59 | Hospitalist Progress Note ---
Date of Service November 04, 2020 Assessment & Plan (1) Pseudogout of right knee: Patient has pseudogout of right knee, appreciate input from orthopedics Joint aspiration synovial fluid culture no growth, no evidence of infection: Patient does not have septic arthritis Procalcitonin level was normal on admission IV antibiotic discontinued Elevated C-reactive protein/ESR secondary to acute gout arthritis Started on colchicine Plan of care discussed with orthopedics/no indication for surgical I&D Patient started on Medrol Dosepak, NSAID avoided as patient has CKD stage III high risk for acute renal failure Right knee pain: Secondary to above Right knee pain much improved after starting on steroids, already on colchicine started on trial of oxycodone: Patient has not required any pain medication overnight Will be discharged home, prescription for oxycodone as needed sent to his pharmacy History of lower extremity DVT Continue Coumadin Disposition: Patient is discharged home today Admission and Anticipated Discharge Date Admission Date: October 31, 2020 Subjective Follow-up visit for RIGHT knee pain/swelling: Right knee pain has improved, patient able to walk with a walker, No pain or swelling, no increased warmth on right knee Feeling fine, no fever or chills no shortness of breath Stable to be discharged home today Review of Systems Review of Systems: As per HPI, all 10 systems reviewed, all other ROS negative Physical Exam Physical Exam: Physical exam: General: No acute distress, alert awake oriented x3 HEENT: PERRLA, EOMI, Heart: Regular S1-S2, no carotid bruit, no JVD, no lower extremity edema Lungs: Clear to auscultate, no wheeze or rales Abdomen: Soft nontender, no organomegaly Extremity: Right knee: No swelling or tenderness, normal range of motion/no joint erythema Neuro: No focal neurological deficit normal speech, normal visual field, Motor strength : normal both upper and lower extremity, sensation intact Psych: Alert awake oriented x3, normal affect Results & Data Results & Data ([facility]) Vital Signs (Past 12 Hours) Vital Signs Temp Pulse Resp BP Pulse Ox 11/04/20 07:07 36.3 C L 63 20 166/89 H 91
--- NOTE | 2020-11-04 13:00 | Discharge Summary ---
Date of Service November 04, 2020 Admission HPI Per Admitting Provider History obtained from patient, family, and records. Medical history significant for hypertension, hyperlipidemia, history of DVT on Coumadin, DM2 insulin requiring, CRI (baseline creatinine 1.5), possible multiple sclerosis/neuropathy/gait dysfunction as per records, hx PMR, hx septic right TKA status post surgery, antibiotic Rx (2016). Patient confined for 2 weeks under Orthopedic service in 2016 for septic arthr itis of right TKA joint. Patient underwent arthroplasty with irrigation, debridement, and implantation of antibiotic spacer. No growth on CS. Patient discharged on 6 week course of IV vancomycin. Patient also developed post op RLE DVT during confinement. Subsequently discharged on Coumadin. Last confinement March 2020 for acute gout attack. Yesterday morning, patient woke up with right lower leg pain, from the knee downwards as per patient, some knee swelling somewhat worse with motion. Temperature of 101 at home. No chest pain, no S OB, no cough symptoms. Trouble walking as per patient daughter. History knee infection in the past as per patient. At the ER, patient received Vancomycin and Zosyn for possible septic arthritis. Medical History as above Surgical History : Knee surgeries, appendectomy, shoulder surgery tibia/fibula fracture surgery Family History : Rheumatoid arthritis, dementia, DM, ESRD, heart disease Personal/Social history : Non-smoker, no EtOH intake, disabled Principal Diagnosis Right Knee Psudogout Discharge Exam Physical exam: General: No acute distress, alert awake oriented x3 HEENT: PERRLA, EOMI, Heart: Regular S1-S2, no carotid bruit, no JVD, no lower extremity edema Lungs: Clear to auscultate, no wheeze or rales Abdomen: Soft nontender, no organomegaly Extremity: No cyanosis, no deformity, normal strength 5 out of 5 with upper and lower Neuro: No focal neurological deficit normal speech, normal visual field, Motor strength : normal both upper and lower extremity, sensation intact Psych: Alert awake oriented x3, normal affect Discharge Data Allergies Allergy/AdvReac Type Severity Reaction Status Date / Time morphine AdvReac Severe Vomiting Verified 10/30/20 21:18 rosuvastatin [From Crestor] AdvReac Intermediate Cramping Verified 10/30/20 21:18 of the Muscles Consultations 10/30/20 23:39 ED Decision to Admit Stat 04/11/21 10:11 Consult Orthopedic Surgery Routine Hospital Course (1) Pseudogout of right knee: Patient has pseudogout of right knee, appreciate input from orthopedics Joint aspiration synovial fluid culture no growth, no evidence of infection: Patient does not have septic arthritis Procalcitonin level was normal on admission IV antibiotic discontinued Elevated C-reactive protein/ESR secondary to acute gout arthritis Started on colchicine Plan of care discussed with orthopedics/no indication for surgical I&D Patient started on Medrol Dosepak, NSAID avoided as patient has CKD stage III high risk for acute renal failure Right knee pain: Secondary to above Right knee pain much improved after starting on steroids, already on colchicine started on trial of oxycodone: Patient has not required any pain medication overnight Will be discharged home, prescription for oxycodone as needed sent to his pharmacy History of lower extremity DVT Continue Coumadin Disposition: Patient is discharged home today Total Time Total Time Spent Total Time Spent (In Minutes): 35 minutes Total Time Includes: Examination of the Patient, Discharge Planning and Medication Reconciliation Discharge Plan Discharge Items Patient Disposition: Home - Self-Care Reason For Visit: SEPSIS Discharge Diagnosis: Right Knee Psudogout Condition on Discharge: Fair Activity: Per Instructions section Weightbearing Comment: Right leg weight bearing as tolerated Non-emergency contact: Primary Care Provider Call non-emergency contact if: you have any medication questions Follow-up/Referrals: Nacho Chen MD [Primary Care Provider] - (Date & Time 11/09/2020 11:00 AM Provider Nacho Chen III, MD Department [facility] ) Diet: Heart Healthy Addtl Attending Provider Instructions: Please take all medications as instructed on discharge list below. It is recommended that you follow-up with your primary care physician within 1-2 weeks of hospital discharge to ensure you are still doing well. Please call if you have any questions or problems. You can reach a [facility] hospitalist on duty at [facility] 24 hours a day by calling [phone] Pending Studies at Discharge: No Stand-Alone Forms: My [facility] [employer], Smoking Cessation Medications and DC Order Prescriptions: New oxycodone 5 mg Tablet 10 mg PO Q6H PRN (Reason: pain (scale score 7-10)) Qty: 20 RF: 0 colchicine [Colcrys] 0.6 mg Tablet 0.6 mg PO BID Qty: 60 RF: 0 methylprednisolone [Methylpred DP] 4 mg tablets,dose pack 4 mg PO UD Qty: 21 RF: 0 Continued finasteride 5 mg tablet 5 mg PO DAILY Qty: 90 RF: 3 ferrous sulfate 325 mg (65 mg iron) Tablet 325 mg PO DAILY RF: 0 cholecalciferol (vitamin D3) [Vitamin D3] 1,000 unit Capsule 1,000 unit PO QAM RF: 0 Lantus Solostar U-100 Insulin 100 unit/mL (3 mL) Insulin Pen 42 unit SUBCUT BID RF: 0 metformin 500 mg Tablet 500 mg PO AMHS RF: 0 warfarin 5 mg tablet 5 mg PO WK RF: 0 aspirin 81 mg Tablet,Delayed Release (Dr/Ec) 81 mg PO DAILY RF: 0 warfarin 5 mg tablet 10 mg PO 6XWK RF: 0 Jardiance 10 mg tablet 10 mg PO DAILY RF: 0 lisinopril 10 mg tablet 20 mg PO DAILY RF: 0 allopurinol 100 mg tablet 200 mg PO DAILY RF: 0 amlodipine [Norvasc] 5 mg tablet 10 mg PO HS RF: 0 Discharge Orders: Discharge Order (Routine); Ordered 11/04/20 Ordered By: Desirae Singletary Admission Data Admit Date/Time: 10/31/20 00:31 Attending Provider: Desirae Singletary Admit Provider: Nahum Toro Primary Care Provider: Nacho Chen Other Providers: Nahum Toro ; Toño Lincoln ; Chel Roberts ; [facility]
[2020-11-05] MEDS ORDERED: methylPREDNISolone 4 MG TAB PO SCH (07:00)
[2020-11-06] MEDS ORDERED: methylPREDNISolone 4 MG TAB PO SCH (07:00)
[2020-11-07] MEDS ORDERED: methylPREDNISolone 4 MG TAB PO SCH (07:00)
[2020-11-08] MEDS ORDERED: methylPREDNISolone 4 MG TAB PO SCH (07:00)
[2020-11-08] MEDS ORDERED: WARFARIN SOD 5 MG TAB PO SCH (16:00)
== END 2020-11-04 13:59 | disposition home or self-care (01) | DRG 560 ==
LOC: ED 20:28 → SUATTDRO 10-31 00:31 → 3N 10-31 00:31

== ENCOUNTER 2021-08-16 15:42 | Observation (INO) ==
[2021-08-16] MEDS ORDERED: ASPIRIN CHEW 324 MG PO STA (15:51)
[2021-08-16 16:21] LABS: Basophils # (auto) 0.02 K/uL (0-0.2); Basophils % (auto) 0.2 %; Eosinophils # (auto) 0.76 K/uL (0-0.5); Eosinophils % (auto) 9.2 %; Hematocrit (blood only) 45.4 % (42-52); Hemoglobin 15.8 g/dL (14.0-18.0); Immature Granulocytes # (auto) 0.06 K/uL (0.00-0.02); Immature Granulocytes % (auto) 0.7 %; Lymphocytes # (auto) 1.91 K/uL (1.2-3.4); Mean Corpuscular Hgb Conc 34.8 g/dL (32-36); Mean Corpuscular Volume 92.1 fL (80-100); Mean Platelet Volume 10.3 fL (7.4-10.4); Monocytes # (auto) 0.58 K/uL (0.11-0.59); Neutrophils # (auto) 4.96 K/uL (1.4-6.5); Neutrophils % (auto) 59.9 %; Platelet Count 264 K/uL (130-400); RDW Standard Deviation 47.3 fL (36.4-46.3); Red Blood Count 4.93 M/uL (4.7-6.1); White Blood Count 8.29 K/uL (4.8-10.8)
--- NOTE | 2021-08-16 16:39 | XRay Report ---
XR chest 1V portable CLINICAL HISTORY: Atypical chest pain TECHNIQUE: Single frontal radiograph of the chest was obtained. Comparison: Comparison is made to chest one view 10/30/2020 FINDINGS: No lines and tubes are seen. The cardiomediastinal silhouette is normal. The lungs are clear. No evid ence of pleural effusion or pneumothorax. IMPRESSION: No acute chest disease. ACT 112: Negative or not required by law. Electronically signed by: Vincent King M.D. 08/16/2021 4:38 PM
[2021-08-16 16:55] LABS: Alanine Aminotransferase 22 U/L (7-52); Albumin Globulin Ratio 1.4 (0.9-2); Albumin Level 4.1 gm/dl (3.4-5.0); BUN Creatinine Ratio 13.2 (10-20); Bilirubin,Total 0.1 mg/dl (0.2-1.0); Blood Urea Nitrogen 24 mg/dl (6-23); Calcium 9.4 mg/dl (8.5-10.1); Carbon Dioxide 24 mmol/L (21-32); Chloride 102 mmol/L (98-107); Creatinine Clr Calc Pharmacy 38.2 ml/min; Est GFR (African American) 42.4 ml/min; Est GFR (Non-African American) 36.5 ml/min; Glucose 215 mg/dl (70-99(Fasting)); Total Protein 7.1 gm/dl (6.0-8.3)
[2021-08-16 17:30] LABS: INR 3.2 (0.9-1.1); Partial Thromboplastin Ratio 1.7; Prothrombin Time 29.8 Seconds (9.0-12.0)
[2021-08-16 17:38] LABS: Partial Thromboplastin Time 45.1 Seconds (21.0-31.0)
[2021-08-16 17:59] LABS: Alkaline Phosphatase 63 U/L (34-104); Sodium 137 mmol/L (136-145)
--- NOTE | 2021-08-16 18:02 | Electrocardiogram Report ---
Test Reason : Blood Pressure : / mmHG Vent. Rate : 083 BPM Atrial Rate : 083 BPM P-R Int : 224 ms QRS Dur : 088 ms QT Int : 352 ms P-R-T Axes : 038 022 071 degrees QTc Int : 413 ms Sinus rhythm with 1st degree A-V block Otherwise normal ECG When compared with ECG of 30-OCT-2020 22:08, Premature atrial complexes are no longer Present Confirmed by Moises Tristan ([id number]) on 08/16/2021 6:02:03 PM Referred By: SELF Confirmed By:Peewee Tristan
--- NOTE | 2021-08-16 19:02 | Emergency Department Note ---
Impression & Plan Precordial chest pain, SOB (shortness of breath), Left arm pain ED Provider Note NAME: DAT QUIÑONES AGE: 70 SEX: M : 1950 ARRIVES VIA: Walk-In INFORMANT: [Patient] ED PROVIDER(S): [Jayme Fernández MD] CHIEF COMPLAINT: Chest pain HISTORY OF PRESENT ILLNESS: The patient is a 70-year-old male presents to the ER with left-sided chest discomfort that has been an issue for him for about a month. The patient states that he has seen cardiology and he had a CT of his chest that did not show any clot. He is scheduled to have a stress test in early August. In the last few days, his pain has worsened. It is now a 9 on a scale 1 out of 10. It radiates to the left arm and shoulder and jaw. He now feels short of breath which is new. No sweating. He does not think the pain is exertional. There always seems to be some discomfort. 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 The patient did have a cardiac catheterization done 10 or so years ago, he did not have any blockages at that time. The patient spoke with cardiology today, as his symptoms are worsening, he was referred to the ED. REVIEW OF SYSTEMS: See HPI for pertinent positives and negatives. A total of ten systems were reviewed and were otherwise negative. PMHx/PSHx: See Below SOCIAL HISTORY: See Below. PHYSICAL EXAM: GENERAL: Patient is in no acute distress. HEENT: No acute trauma, normocephalic atraumatic, mucous membranes moist, no nasal congestion, no scleral icterus. NECK: No stridor, no adenopathy, no meningismus, trachea is midline. LUNGS: Clear to auscultation bilaterally, no wheeze, no rhonchi, breath sounds equal. Chest: Nontender chest wall. HEART: Without murmurs gallops or rubs, regular rate and rhythm. ABDOMEN: Soft, nontender, bowel sounds positive, no hernias, no peritonitis. EXTREMITIES: No cyanosis or edema, full range of motion of all the joints without pain or difficulty, no signs for acute trauma. NEUROLOGIC: Oriented x 3, no acute motor or sensory deficits, no focal weakness. SKIN: No rash, no jaundice, no diaphoresis. DIFFERENTIAL DIAGNOSIS: Cardiac ischemia, aortic dissection, pulmonary embolism, pneumothorax, pneumonia, pericarditis, myocarditis, esophageal rupture, GERD, cholecystitis, pancreatitis, musculoskeletal, as well as other pathologies. EMERGENCY DEPARTMENT COURSE/PROCEDURES: ECG: Indication was chest pain. The ECG shows a sinus rhythm with a first- degree AV block. The rate is 83. There is no acute ST elevation, no PVCs. The QTc is 413. Continuous Cardiac Monitoring: An order was placed for continuous cardiac monitoring. The monitor shows a rate of 77 with normal sinus rhythm. MEDICAL DECISION MAKING: There is no leukocytosis or worrisome anemia. There is a normal platelet count. INR is 3.2, consistent with his Coumadin use. There is an elevation to the creatinine, this is baseline looking back at previous testing. There is no concerning liver enzyme elevation. ECG shows a sinus rhythm with a first-degree AV block. No obvious ischemia. Cardiac enzyme testing x1 is not consistent with acute cardiac injury. Covid testing returned negative. Chest film does not show pneumonia, mediastinal widening or pneumothorax. On exam, I could not reproduce his chest pain with palpation. The patient presents with increasing chest pain. He now has some shortness of breath and some radiation of pain to the left arm. Given the worsening chest discomfort and worsening symptoms, I do think a hospital stay and further cardiac work-up is warranted. I did speak with the patient and reviewed his results. I spoke with case management. The on-call hospitalist was consulted. Of note, the patient did receive IV Tylenol for pain, he was given oral aspirin. He was given 1 inch of nitroglycerin paste. Past Med/Surg History Medical History (Updated 08/16/21 @ 22:05 by Jayme Fernández MD) Anxiety Asthma in remission BPH (benign prostatic hyperplasia) BPH loc w urin obs/LUTS Broken rib r/t old sports injury, shows up on CXRs as abnormal, but was very remote (in college) and does not cause any pain. Cataract Chronic kidney disease Stage III. follows w/ dr. 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 Galloway, has not had symptoms beyond muscle twitches since the early Osteoarthritis Polyarthritis Prostate cancer screening Thyroid nodule Surgical History H/O arthroscopic knee surgery History of appendectomy History of arthroscopy of left knee History of cardiac cath 15 years ago - CP led to cath - Tj - no stents/angioplasty, ruled indigestion - does not follow w/ cardio History of carpal tunnel release BL History of carpal tunnel surgery History of cystoscopy History of knee joint replacement x 2 rt knee History of repair of rotator cuff BL History of surgery LLE - hardware present History of tooth extraction History of total right knee replacement S/P appendectomy S/P rotator cuff repair Status post biopsy of thyroid gland benign Family History Daughter History of anesthesia reaction PONV Grandfather (Paternal) Family history of diabetes mellitus Mother Family history of diabetes mellitus Father Family history of diabetes mellitus Social History Smoking Status: Never smoker Tobacco Type: Smokeless Tobacco (Dip or Chew) Second Hand Exposure: Yes ( smokes two cartons week); Hx Alcohol Use: No Hx Substance Use: No Preferred Language: Urdu Communication Ability: Effective 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 Beliefs That Will Affect Care: None marital status: Current Living Situation: Spouse current occupational status: retired Feels Safe at Home: Yes Assistive Devices: Cane Allergies Allergies Allergy/AdvReac Type Severity Reaction Status Date / Time morphine AdvReac Severe Vomiting Verified 08/16/21 19:15 rosuvastatin [From Crestor] AdvReac Intermediate Cramping Verified 08/16/21 19:15 of the Muscles Home Meds Home Medications Medication Instructions Recorded Confirmed cholecalciferol (vitamin D3) 25 1,000 unit PO QAM 10/18/18 08/16/21 mcg (1,000 unit) capsule (Vitamin D3) ferrous sulfate 325 mg (65 mg 325 mg PO QAM 10/18/18 08/16/21 iron) tablet insulin glargine 100 unit/mL (3 42 unit SUBCUT BID 10/18/18 08/16/21 mL) subcutaneous pen (Lantus Solostar U-100 Insulin) metformin 500 mg tablet 500 mg PO AMHS 08/06/19 08/16/21 aspirin 81 mg tablet,delayed 81 mg PO QAM 03/30/20 08/16/21 release empagliflozin 10 mg tablet 10 mg PO HS 03/30/20 08/16/21 (Jardiance) warfarin 5 mg tablet 10 mg PO [id number] 03/30/20 10/30/20 lisinopril 10 mg tablet 20 mg PO QAM 03/31/20 08/16/21 allopurinol 100 mg tablet 200 mg PO HS 07/01/20 08/16/21 amlodipine 5 mg tablet (Norvasc) 10 mg PO HS 10/30/20 08/16/21 cholecalciferol (vitamin D3) 25 25 mcg PO QAM 08/16/21 08/16/21 mcg (1,000 unit) tablet (Vitamin D3) finasteride 5 mg tablet 5 mg PO HS 08/16/21 08/16/21 magnesium 30 mg tablet 30 mg PO QAM 08/16/21 08/16/21 omeprazole 20 mg tablet,delayed 20 mg PO QAM 08/16/21 08/16/21 release zinc 50 mg tablet 50 mg PO QAM 08/16/21 08/16/21 Results & Data (ED) Vital Signs Vital Signs - 24 hr 08/16/21 15:47 08/16/21 18:51 08/16/21 18:54 Temperature 37.1 C Temperature Source Temporal Artery Scan Pulse Rate 96 H 77 Pulse Rate from SpO2 Sensor 76 Respiratory Rate 16 27 H Blood Pressure 160/95 H 181/93 H Blood Pressure Mean 116 122 Blood Pressure Position Sitting Pulse Oximetry 96 97 98 Oxygen Delivery Method Room Air Room Air Room Air Sepsis Recent Fever Within 48 Hours No Sepsis New/Unexplained Change in Mental Status No Sepsis Action Taken by Nursing No Action Required 08/16/21 18:59 08/16/21 19:00 08/16/21 19:30 Temperature Temperature Source Pulse Rate 70 68 Pulse Rate from SpO2 Sensor 70 68 Respiratory Rate 20 13 Blood Pressure 172/93 H 153/84 H Blood Pressure Mean 119 107 Blood Pressure Position Pulse Oximetry 98 97 97 Oxygen Delivery Method Room Air Room Air Room Air Sepsis Recent Fever Within 48 Hours Sepsis New/Unexplained Change in Mental Status Sepsis Action Taken by Nursing 08/16/21 20:00 08/16/21 20:30 08/16/21 21:00 Temperature Temperature Source Pulse Rate 70 66 64 Pulse Rate from SpO2 Sensor 70 67 63 Respiratory Rate 16 14 13 Blood Pressure 147/95 H 144/85 H 138/88 Blood Pressure Mean 112 104 104 Blood Pressure Position Pulse Oximetry 96 95 95 Oxygen Delivery Method Room Air Sepsis Recent Fever Within 48 Hours Sepsis New/Unexplained Change in Mental Status Sepsis Action Taken by Nursing 08/16/21 21:30 Temperature Temperature Source Pulse Rate 60 Pulse Rate from SpO2 Sensor 60 Respiratory Rate 13 Blood Pressure 138/73 Blood Pressure Mean 94 Blood Pressure Position Pulse Oximetry 96 Oxygen Delivery Method Room Air Sepsis Recent Fever Within 48 Hours Sepsis New/Unexplained Change in Mental Status Sepsis Action Taken by Correction Medications Current Medication List: was personally reviewed by me Laboratory Data Attestation: I reviewed the patient's lab results. Result diagrams: 08/16/21 16:10 08/16/21 17:20 Lab Results 08/16/21 08/16/21 08/16/21 Range/Units 16:10 16:10 16:10 WBC 8.29 (4.8-10.8) K/uL RBC 4.93 (4.7-6.1) M/uL Hgb 15.8 (14.0-18.0) g/dL Hct 45.4 (42-52) % MCV 92.1 (80-100) fL MCH 32.0 (25-34) pg MCHC 34.8 (32-36) g/dL RDW Std Deviation 47.3 H (36.4-46.3) fL RDW Coeff of Leo 14.0 (11.5-14.5) % Plt Count 264 (130-400) K/uL MPV 10.3 (7.4-10.4) fL Immature Gran % (Auto) 0.7 % Neut % (Auto) 59.9 % Lymph % (Auto) 23.0 % [place] % (Auto) 7.0 % Eos % (Auto) 9.2 % Baso % (Auto) 0.2 % Neut # (Auto) 4.96 (1.4-6.5) K/uL Lymph # (Auto) 1.91 (1.2-3.4) K/uL [place] # (Auto) 0.58 (0.11-0.59) K/uL Eos # (Auto) 0.76 H (0-0.5) K/uL Baso # (Auto) 0.02 (0-0.2) K/uL Immature Gran # (Auto) 0.06 H (0.00-0.02) K/uL PT 29.8 H (9.0-12.0) Seconds INR 3.2 H (0.9-1.1) APTT 45.1 H* (21.0-31.0) Seconds PTT Ratio 1.7 Sodium (136-145) mmol/L Potassium (3.5-5.1) mmol/L Chloride 102 (98-107) mmol/L Carbon Dioxide 24 (21-32) mmol/L Anion Gap (3-11) BUN 24 H (6-23) mg/dl Creatinine 1.82 H (0.6-1.4) mg/dl Est Cr Clr Drug Dosing 38.2 ml/min Est GFR ( Amer) 42.4 ml/min Est GFR (Non-Af Amer) 36.5 ml/min BUN/Creatinine Ratio 13.2 (10-20) Glucose 215 H (70-99(Fasting)) mg/dl POC Glucose (70-99) mg/dl Calcium 9.4 (8.5-10.1) mg/dl Total Bilirubin 0.1 L (0.2-1.0) mg/dl AST (13-39) U/L ALT 22 (7-52) U/L Alkaline Phosphatase (34-104) U/L Troponin I < 0.03 (0-0.04) ng/ml Total Protein 7.1 (6.0-8.3) gm/dl Albumin 4.1 (3.4-5.0) gm/dl Globulin 3.0 (2.5-4.0) gm/dl Albumin/Globulin Ratio 1.4 (0.9-2) SARS-CoV-2, RNA, NAAT (NEGATIVE) 08/16/21 08/16/21 08/16/21 Range/Units 17:20 19:25 21:35 WBC (4.8-10.8) K/uL RBC (4.7-6.1) M/uL Hgb (14.0-18.0) g/dL Hct (42-52) % MCV (80-100) fL MCH (25-34) pg MCHC (32-36) g/dL RDW Std Deviation (36.4-46.3) fL RDW Coeff of Leo (11.5-14.5) % Plt Count (130-400) K/uL MPV (7.4-10.4) fL Immature Gran % (Auto) % Neut % (Auto) % Lymph % (Auto) % [place] % (Auto) % Eos % (Auto) % Baso % (Auto) % Neut # (Auto) (1.4-6.5) K/uL Lymph # (Auto) (1.2-3.4) K/uL [place] # (Auto) (0.11-0.59) K/uL Eos # (Auto) (0-0.5) K/uL Baso # (Auto) (0-0.2) K/uL Immature Gran # (Auto) (0.00-0.02) K/uL PT (9.0-12.0) Seconds INR (0.9-1.1) APTT (21.0-31.0) Seconds PTT Ratio Sodium 137 (136-145) mmol/L Potassium (3.5-5.1) mmol/L Chloride (98-107) mmol/L Carbon Dioxide (21-32) mmol/L Anion Gap (3-11) BUN (6-23) mg/dl Creatinine (0.6-1.4) mg/dl Est Cr Clr Drug Dosing ml/min Est GFR ( Amer) ml/min Est GFR (Non-Af Amer) ml/min BUN/Creatinine Ratio (10-20) Glucose (70-99(Fasting)) mg/dl POC Glucose 151 H (70-99) mg/dl Calcium (8.5-10.1) mg/dl Total Bilirubin (0.2-1.0) mg/dl AST (13-39) U/L ALT (7-52) U/L Alkaline Phosphatase 63 (34-104) U/L Troponin I (0-0.04) ng/ml Total Protein (6.0-8.3) gm/dl Albumin (3.4-5.0) gm/dl Globulin (2.5-4.0) gm/dl Albumin/Globulin Ratio (0.9-2) SARS-CoV-2, RNA, NAAT NEGATIVE (NEGATIVE) Administered Medications Insulin Aspart (Insulin Aspart Per Unit) 0 units SC ACHS JOYCE Stop: 09/15/21 20:59 Last Admin: 08/16/21 21:49 Dose: 6 units Documented by: [id number] Cosigned by: [id number] Insulin Glargine (Insulin Glargine Solostar 100 Units/Ml 3 Ml Pen) 20 units SC BID JOYCE Stop: 09/15/21 20:59 Last Admin: 08/16/21 21:49 Dose: 20 units Documented by: [id number] Cosigned by: [id number] Nitroglycerin (Nitroglycerin 2% Ointment 30gm Tube) 0.5 inch EXT Q6H JOYCE Stop: 09/15/21 20:45 Last Admin: 08/16/21 21:21 Dose: Not Given Documented by: [id number] Discontinued Medications Acetaminophen (Acetaminophen 1000 Mg/100 Ml Iv) 1,000 mg IV NOW STA Stop: 08/16/21 19:05 Last Admin: 08/16/21 19:19 Dose: 1,000 mg Documented by: [id number] Aspirin (Aspirin Chew 324 Mg) 324 mg PO ONE STA Stop: 08/16/21 15:52 Last Admin: 08/16/21 16:08 Dose: 324 mg Documented by: [id number] Nitroglycerin (Nitroglycerin 2% Ointment 30gm Tube) 1 inch EXT NOW STA Stop: 08/16/21 19:05 Last Admin: 08/16/21 19:20 Dose: 1 inch Documented by: [id number] Imaging Data Radiologist's Impression: Chest X-Ray 08/16/21 15:51 XR chest 1V portable CLINICAL HISTORY: Atypical chest pain TECHNIQUE: Single frontal radiograph of the chest was obtained. Comparison: Comparison is made to chest one view 10/30/2020 FINDINGS: No lines and tubes are seen. The cardiomediastinal silhouette is normal. The lungs are clear. No evidence of pleural effusion or pneumothorax. IMPRESSION: No acute chest disease. ACT 112: Negative or not required by law. Electronically signed by: Vincent King M.D. 08/16/2021 4:38 PM Discharge Plan Visit Data Chief Complaint: Chest Pain Stated Complaint: chest pain radaiting into L arm, dr moore ED Provider: Jayme Fernández Discharge Problem: Precordial chest pain, SOB (shortness of breath), Left arm pain Patient Disposition: Admitted As Inpatient Condition: Good Forms Stand Alone Forms: [facility] Prescriptions Prescriptions: No Action ferrous sulfate 325 mg (65 mg iron) Tablet 325 mg PO QAM RF: 0 cholecalciferol (vitamin D3) [Vitamin D3] 1,000 unit Capsule 1,000 unit PO QAM RF: 0 Lantus Solostar U-100 Insulin 100 unit/mL (3 mL) Insulin Pen 42 unit SUBCUT BID RF: 0 metformin 500 mg Tablet 500 mg PO AMHS RF: 0 aspirin 81 mg Tablet,Delayed Release (Dr/Ec) 81 mg PO QAM RF: 0 warfarin 5 mg tablet 10 mg PO [id number] RF: 0 Jardiance 10 mg tablet 10 mg PO HS RF: 0 lisinopril 10 mg tablet 20 mg PO QAM RF: 0 allopurinol 100 mg tablet 200 mg PO HS RF: 0 amlodipine [Norvasc] 5 mg tablet 10 mg PO HS RF: 0 zinc 50 mg Tablet 50 mg PO QAM RF: 0 magnesium 30 mg Tablet 30 mg PO QAM RF: 0 cholecalciferol (vitamin D3) [Vitamin D3] 25 mcg (1,000 unit) Tablet 25 mcg PO QAM RF: 0 omeprazole 20 mg Tablet,Delayed Release (Dr/Ec) 20 mg PO QAM RF: 0 finasteride 5 mg tablet 5 mg PO HS RF: 0 Referrals Referrals: Nacho Chen MD [Primary Care Provider] -
[2021-08-16] MEDS ORDERED: NITROGLYCERIN 2% OINTMENT 30GM TUBE EXT STA (19:04)
[2021-08-16] MEDS ORDERED: ACETAMINOPHEN 1000 MG/100 ML IV IV STA (19:04)
[2021-08-16 21:09] LABS: Troponin I < 0.03 ng/ml (0-0.04)
[2021-08-16] MEDS: NITROGLYCERIN 2% OINTMENT 30GM TUBE EXT SCH (21:21)
[2021-08-16] MEDS: INSULIN ASPART PER UNIT SC SCH (21:49)
[2021-08-16] MEDS: INSULIN GLARGINE SOLOSTAR 100 UNITS/ML 3 ML PEN SC SCH (21:49)
--- NOTE | 2021-08-16 21:52 | History and Physical Report ---
DATE OF ADMISSION: 08/16/2021. CHIEF COMPLAINT: Chest pain. HISTORY OF PRESENT ILLNESS: This 70-year-old male with past medical history significant for diabetes, diabetic polyneuropathy, chronic kidney disease stage III, hyperlipidemia, multinodular goiter, diabetic retinopathy, gout, asthma in remission, hypertension, GERD, chronic arthralgias of polymyalgia rheumatica, monoclonal gammopathy of unknown significance, history of DVT on Coumadin, who comes with chest pain. The patient has had increased chest pain since June, he saw recently Cardiology and had echo was unremarkable and CT of chest was done, which was also unremarkable. There is a plan for Lexiscan nuclear stress test in August, but the last few days, the pain got worse, it was 9/10 in severity in the left side of chest, radiating to his left arm, shoulder and also jaw and called the Cardiology office and was referred to come to the hospital. Currently, initial workup is unremarkable. He rated his pain as 9/10 in severity, associated with some shortness of breath and some dizziness. No nausea or vomiting. No sweating, has chronic blurred vision, no earache, has chronic runny nose, no sore throat. No cough. Appetite is okay. No difficulty swallowing. No abdominal pain, normal bowel and bladder movements. No hematuria, no blood in stools or black stools. Sometimes he gets swelling in the left lower extremity from his DVT. Ambulating okay, when he ambulates, the chest pain is not getting worse, the chest pain is mostly constant pain. ALLERGIES: MORPHINE, LOVASTATIN. PAST MEDICAL HISTORY: As mentioned above. PAST SURGICAL HISTORY: Right knee arthroplasty, carpal tunnel surgery, colonoscopy, right and left heart catheterization, left distal tibia fracture fixation, knee arthroscopy, appendectomy, bilateral ruptured rotator cuff. MEDICATIONS: The patient is on allopurinol 200 mg p.o. at bedtime, Norvasc 10 mg p.o. at bedtime, aspirin 81 mg p.o. a.m., vitamin D 25 mcg p.o. a.m., ferrous sulfate 325 mg p.o. a.m., finasteride 5 mg p.o. at bedtime, Jardiance 10 mg p.o. at bedtime, Lantus 42 units subcutaneous b.i.d., lisinopril 20 mg p.o. a.m., magnesium 30 mg p.o. a.m., metformin 500 mg b.i.d., omeprazole 20 mg p.o. a.m., warfarin 10 mg p.o. 6 times a week and on Sunday 5 mg daily, zinc 50 mg p.o. a.m. FAMILY HISTORY: Significant for mother has rheumatoid arthritis, breast cancer, diabetes, ESRD, heart disorder. Father has ulcers, diabetes, dementia, chronic kidney disease. SOCIAL HISTORY: , smokes tobacco. No alcohol use. No drug use. REVIEW OF SYSTEMS: As per HPI. Rest of review of systems is negative. PHYSICAL EXAMINATION: GENERAL: The patient is of moderate build, not in acute distress. VITAL SIGNS: Temperature 37.1, pulse 77, respiratory rate 27, blood pressure 181/93, oxygen 98% on room air. HEENT: Pupils equal, round and reactive to light. Oral mucosa moist. NECK: No JVD, no neck masses. CARDIOVASCULAR: S1 and S2 heard. Regular rate and rhythm. No murmur, no gallop. RESPIRATORY SYSTEM: Normal AP diameter. No accessory muscle use. No wheezing, no crackles. ABDOMEN: Soft, bowel sounds present, nontender, no distention. CENTRAL NERVOUS SYSTEM: Cranial nerves II-XII grossly intact, nonfocal. EXTREMITIES: No edema, no erythema. LABORATORY DATA: WBC 8.8, hemoglobin 15.8, hematocrit 45.4, platelets 264. PT 29.8, INR 3.2, APTT 45.1. Sodium 137, potassium chloride 102, bicarbonate 24, BUN 24, creatinine 1.8, serum glucose 215, calcium 9.4, direct bilirubin 0.1, ALT 22, alkaline phosphatase 63. Troponin-I pending. SARS-CoV-2 negative. IMAGING DATA: Chest x-ray, no acute disease in the chest. EKG: Sinus rhythm with first-degree AV block at a rate of 83.No acute St changes seen. ASSESSMENT AND PLAN: This is a 70-year-old male who presents with chest pain. 1. Chest pain: Rule out acute coronary syndrome. Initial workup is negative. The patient has recently had echo and CTA of chest which was unremarkable. Currently, pain is getting worse, it is constant pain. Has risk factor of diabetes, hypertension, hyperlipidemia, we will keep him n.p.o. after midnight. Follow serial enzymes, consult Cardiology in the a.m. for further recommendations. r Lexiscan nuclear stress test vs cardiac catheterization as per Cardiology. 2. Diabetes: Hold his Jardiance and metformin, cut back on Lantus to 20 units b.i.d. as the patient will be n.p.o. after midnight and placed on insulin sliding scale. Follow blood sugars, follow HbA1c levels. 3. History of gastroesophageal reflux disease: Continue omeprazole. 4. History of hypertension. Continue lisinopril, amlodipine, we will monitor the blood pressure. 5. History of deep venous thrombosis, on Coumadin 10 mg every day except Sunday on which he takes 5 mg as per [facility] records. Currently, INR is 3.2. Follow PT/INR. If any procedure is planned, we will hold Coumadin. 6. Chronic kidney disease stage III: Baseline creatinine around 1.5-1.6, current creatinine of 1.8. We will follow the repeat labs and getting gentle fluids. We will avoid any nephrotoxic agents. 7. Benign prostatic hypertrophy: Continue finasteride. 8. Gout: Continue allopurinol. 9. Deep venous thrombosis prophylaxis: On Coumadin. DISPOSITION: Closely monitor in the tele floor. Level 1 full code. Expect to discharge home and follow up with family doctor. Job ID: [id number] [facility] CENTERJuan Antonio
[2021-08-16] MEDS ORDERED: CARBOHYDRATES FOR HYPOGLYCEMIA PO PRN (23:45)
[2021-08-16] MEDS ORDERED: SODIUM CHLORIDE 0.9% 1000ML 1,000 ML IV SCH (23:45)
[2021-08-16] MEDS ORDERED: GLUCOSE 10 TABS/TUBE PO PRN (23:45)
[2021-08-16] MEDS ORDERED: ACETAMINOPHEN 325 MG TAB PO PRN (23:45)
[2021-08-16] MEDS ORDERED: GLUCAGON FOR INJ 1 MG VIAL IM PRN (23:45)
[2021-08-16] MEDS ORDERED: WARFARIN SOD 10 MG TAB PO SCH (23:45)
[2021-08-16] MEDS ORDERED: POLYETHYLENE (MIRALAX) 17 GM PACK PO PRN (23:45)
[2021-08-16] MEDS ORDERED: NITROGLYCERIN SL 0.4 MG/TAB TAB SL PRN (23:45)
[2021-08-16] MEDS ORDERED: GLUCOSE 40% GEL 15 GM TUBE PO PRN (23:45)
[2021-08-16] MEDS ORDERED: ONDANSETRON INJ 2 MG/ML 2 ML VIAL IV PRN (23:45)
[2021-08-16] MEDS ORDERED: DEXTROSE 50% 50 ML SYRINGE IV PRN (23:45)
[2021-08-17] MEDS: FINASTERIDE 5 MG TAB PO SCH ×2 (00:33→21:30)
[2021-08-17] MEDS: allopurinoL 100 MG TAB PO SCH ×2 (00:33→21:31)
[2021-08-17] MEDS: amLODIPine BESYLATE 5 MG TAB PO SCH ×2 (00:33→21:31)
[2021-08-17] MEDS: HYDROmorphone INJ 0.5 MG/0.5 ML SYR IV PRN ×5 (01:01→21:35)
[2021-08-17] MEDS: NITROGLYCERIN 2% OINTMENT 30GM TUBE EXT SCH ×4 (02:35→22:36)
[2021-08-17] MEDS ORDERED: SODIUM CHLORIDE 0.9% 500 ML IV SCH (03:45)
[2021-08-17 05:58] LABS: Basophils # (auto) 0.02 K/uL (0-0.2); Basophils % (auto) 0.3 %; Eosinophils # (auto) 0.73 K/uL (0-0.5); Eosinophils % (auto) 9.9 %; Hematocrit (blood only) 41.7 % (42-52); Immature Granulocytes # (auto) 0.03 K/uL (0.00-0.02); Immature Granulocytes % (auto) 0.4 %; Lymphocytes # (auto) 1.82 K/uL (1.2-3.4); Lymphocytes % (auto) 24.7 %; Mean Corpuscular Hgb Conc 33.6 g/dL (32-36); Mean Corpuscular Volume 92.5 fL (80-100); Monocytes # (auto) 0.58 K/uL (0.11-0.59); Monocytes % (auto) 7.9 %; Neutrophils # (auto) 4.18 K/uL (1.4-6.5); Neutrophils % (auto) 56.8 %; Platelet Count 206 K/uL (130-400); RDW Coefficient of Variation 14.1 % (11.5-14.5); RDW Standard Deviation 47.8 fL (36.4-46.3); Red Blood Count 4.51 M/uL (4.7-6.1); White Blood Count 7.36 K/uL (4.8-10.8)
[2021-08-17 06:03] LABS: INR 3.2 (0.9-1.1); Prothrombin Time 29.8 Seconds (9.0-12.0)
[2021-08-17 06:19] LABS: Troponin I < 0.03 ng/ml (0-0.04)
[2021-08-17 06:35] LABS: Anion Gap 8 (3-11); BUN Creatinine Ratio 16.9 (10-20); Blood Urea Nitrogen 29 mg/dl (6-23); Calcium 8.5 mg/dl (8.5-10.1); Carbon Dioxide 25 mmol/L (21-32); Chloride 107 mmol/L (98-107); Creatinine Clr Calc Pharmacy 40.5 ml/min; Est GFR (African American) 45.4 ml/min; Est GFR (Non-African American) 39.1 ml/min; Glucose 116 mg/dl (70-99(Fasting)); Magnesium 1.8 mg/dl (1.7-2.4); Potassium 3.8 mmol/L (3.5-5.1); Sodium 140 mmol/L (136-145)
[2021-08-17 07:08] LABS: Estimated Average Glucose 177 mg/dl; Hemoglobin A1C 7.8 % (4.5-5.6)
[2021-08-17] MEDS ORDERED: NON-FORMULARY MEDICATION (Magnesium 30 mg Tablet) PO SCH (09:00)
[2021-08-17] MEDS: INSULIN ASPART PER UNIT SC SCH ×4 (09:10→21:51)
[2021-08-17] MEDS: PANTOprazole 40 MG TAB PO SCH (09:51)
[2021-08-17] MEDS: ZINC SULFATE 220 MG CAPSULE PO SCH (09:51)
[2021-08-17] MEDS: FERROUS SULFATE 325 MG TAB PO SCH (09:51)
[2021-08-17] MEDS: lisinopril 20 MG TAB PO SCH (09:51)
[2021-08-17] MEDS: ASPIRIN 81 MG ECTAB PO SCH (09:51)
[2021-08-17] MEDS: CHOLECALCIFEROL 1,000 UNITS 25 MCG TAB PO SCH (09:51)
--- NOTE | 2021-08-17 10:23 | Cardiology Consultation ---
Date of Consultation August 17, 2021 Assessment & Plan (1) Precordial chest pain: (2) SOB (shortness of breath): (3) Supratherapeutic INR: (4) CKD (chronic kidney disease), stage III: (5) HTN (hypertension): Patient is a 70-year-old male with multiple cardiovascular risk factors who presents with several weeks history of left shoulder and chest pain somewhat atypical for angina but persistent and now eased in the emergency room setting with topical nitrates. Cardiac enzymes and EKGs unrevealing. Echocardiogram done recently demonstrates preserved LV systolic function Patient on chronic anticoagulation due to past DVT most recent 2015. Symptoms may be neuropathic however multiple concerns ongoing. Plan: As in past options of management of been discussed. We will proceed with diagnostic coronary angiography. Tentatively plan tomorrow with a dose of vitamin K today given elevated INR Procedure and risks explained in detail the patient. We will begin hydration this evening given chronic renal insufficiency with repeat INR and BMP in a.m. History of Present Illness Reason for Consultation: Persistent chest pain Requesting Physician: Dr. Haynes Attending Physician: Fani Haynes, DO History of Present Illness Patient is a 70-year-old male with ongoing issues which include 1. Hypertension 2. Hyperlipidemia 3. 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 Recurrent DVT on chronic anticoagulation 5. Multiple sclerosis Patient is referred after ER evaluation and admission. He has ongoing difficulties with severe left shoulder chest and arm pain. Initial evaluations including echocardiogram CT EKGs and cardiac enzymes unrevealing Patient finds pain debilitating and associated with shortness of breath over the last 24 hours. Feels symptoms have improved since topical nitrates begun in the emergency room No fevers chills or unexplained infections. Patient on long-term anticoagulation without interruption. INR elevated today with last dose of warfarin last evening No bleeding difficulties. Symptoms somewhat improved since presenting to the hospital Allergies Allergy/AdvReac Type Severity Reaction Status Date / Time morphine AdvReac Severe Vomiting Verified 08/16/21 19:15 rosuvastatin [From Crestor] AdvReac Intermediate Cramping Verified 08/16/21 19:15 of the Muscles Home Medications Medication Instructions Recorded Confirmed Type cholecalciferol (vitamin D3) 25 1,000 unit PO QAM 10/18/18 08/16/21 History mcg (1,000 unit) capsule (Vitamin D3) ferrous sulfate 325 mg (65 mg 325 mg PO QAM 10/18/18 08/16/21 History iron) tablet insulin glargine 100 unit/mL (3 42 unit SUBCUT BID 10/18/18 08/16/21 History mL) subcutaneous pen (Lantus Solostar U-100 Insulin) metformin 500 mg tablet 500 mg PO AMHS 08/06/19 08/16/21 History aspirin 81 mg tablet,delayed 81 mg PO QAM 03/30/20 08/16/21 History release empagliflozin 10 mg tablet 10 mg PO HS 03/30/20 08/16/21 History (Jardiance) warfarin 5 mg tablet 10 mg PO 6XWK 03/30/20 10/30/20 History lisinopril 10 mg tablet 20 mg PO QAM 03/31/20 08/16/21 History allopurinol 100 mg tablet 200 mg PO HS 07/01/20 08/16/21 History amlodipine 5 mg tablet (Norvasc) 10 mg PO HS 10/30/20 08/16/21 History cholecalciferol (vitamin D3) 25 25 mcg PO QAM 08/16/21 08/16/21 History mcg (1,000 unit) tablet (Vitamin D3) finasteride 5 mg tablet 5 mg PO HS 08/16/21 08/16/21 History magnesium 30 mg tablet 30 mg PO QAM 08/16/21 08/16/21 History omeprazole 20 mg tablet,delayed 20 mg PO QAM 08/16/21 08/16/21 History release zinc 50 mg tablet 50 mg PO QAM 08/16/21 08/16/21 History warfarin 5 mg tablet 5 mg PO UD 08/17/21 08/17/21 History Patient History Medical History Anxiety Asthma in remission BPH (benign prostatic hyperplasia) BPH loc w urin obs/LUTS Broken rib r/t old sports injury, shows up on CXRs as abnormal, but was very remote (in college) and does not cause any pain. Cataract Chronic kidney disease Stage III. follows w/ dr. bowens CKD (chronic kidney disease), stage III Deep vein thrombosis hx mult DVT to BLE; on coumadin; most recent fall/2018 - believes r/t surgeries (denies clotting disorder) Diabetes mellitus, type 2 IDDM DM type 2 (diabetes mellitus, type 2) Extrapyramidal disease and abnormal movement disorder GERD (gastroesophageal reflux disease) GERD (gastroesophageal reflux disease) History of kidney stones Hyperlipidemia Hyperlipidemia Hypertension Hypertension Kidney stone Multiple sclerosis Multiple sclerosis follows w/ dr. Galloway, has not had symptoms beyond muscle twitches since the early Osteoarthritis Polyarthritis Prostate cancer screening Thyroid nodule Surgical History H/O arthroscopic knee surgery History of appendectomy History of arthroscopy of left knee History of cardiac cath 15 years ago - CP led to cath - Tj - no stents/angioplasty, ruled indigestion - does not follow w/ cardio History of carpal tunnel release BL History of carpal tunnel surgery History of cystoscopy History of knee joint replacement x 2 rt knee History of repair of rotator cuff BL History of surgery LLE - hardware present History of tooth extraction History of total right knee replacement S/P appendectomy S/P rotator cuff repair Status post biopsy of thyroid gland benign Family History Daughter History of anesthesia reaction PONV Grandfather (Paternal) Family history of diabetes mellitus Mother Family history of diabetes mellitus Father Family history of diabetes mellitus Social History Smoking Status: Never smoker Tobacco Type: Smokeless Tobacco (Dip or Chew) Second Hand Exposure: Yes ( smokes two cartons week); Hx Alcohol Use: No Hx Substance Use: No Preferred Language: Nauruan Communication Ability: Effective Automatic Lathe Tender Required: No Beliefs That Will Affect Care: None marital status: Current Living Situation: Spouse current occupational status: retired Other Information That Helps Us Care for You: No Feels Safe at Home: Yes Safety Concerns: Feels Safe At This Time Assistive Devices: Cane, Walker and Wheelchair Review of Systems Review of Systems: All systems reviewed & are unremarkable except as noted in HPI & below Physical Exam Constitutional: WD/WN, vitals as above Eyes: PERRL, conjunctivae normal, anicteric sclerae ENMT: external ear and nose normal, oropharynx normal Neck: trachea midline, no thyromegaly Respiratory: normal respiratory effort, lungs clear to auscultation Cardiovascular: Rate/Rhythm: regular rate and regular rhythm Heart Sounds: normal S1, normal S2 and + murmur (2/6 systolic murmur best at the right upper sternal border); no gallop Palpation: normal PMI Vessels: normal carotid upstroke and radial pulses present; no JVD and no carotid bruit Extremities: no edema Gastrointestinal (Abdomen): normal bowel sounds, soft, nontender, no hepatosplenomegaly Musculoskeletal: no cyanosis or clubbing, extremities motor strength 5/5 Skin: no rashes, warm and dry Neurologic: PERRL, EOMI, accommodation nl, no face palsy, no dysarthria Psychiatric: A+Ox3, euthymic affect Results & Data ([facility]) Vital Signs (Past 12 Hours) Vital Signs Pulse Resp BP BP Pulse Ox 08/17/21 04:58 130/99 08/17/21 03:20 64 12 87/56 L 115/61 96 08/17/21 00:41 76 16 117/72 95 Laboratory Results Laboratory Results - last 24 hr 08/16/21 08/16/21 08/16/21 16:10 16:10 16:10 WBC 8.29 RBC 4.93 Hgb 15.8 Hct 45.4 MCV 92.1 MCH 32.0 MCHC 34.8 RDW Std Deviation 47.3 H RDW Coeff of Leo 14.0 Plt Count 264 MPV 10.3 Immature Gran % (Auto) 0.7 Neut % (Auto) 59.9 Lymph % (Auto) 23.0 [place] % (Auto) 7.0 Eos % (Auto) 9.2 Baso % (Auto) 0.2 Neut # (Auto) 4.96 Lymph # (Auto) 1.91 [place] # (Auto) 0.58 Eos # (Auto) 0.76 H Baso # (Auto) 0.02 Immature Gran # (Auto) 0.06 H PT 29.8 H INR 3.2 H APTT 45.1 H* PTT Ratio 1.7 Sodium Potassium Chloride 102 Carbon Dioxide 24 Anion Gap BUN 24 H Creatinine 1.82 H Est Cr Clr Drug Dosing 38.2 Est GFR ( Amer) 42.4 Est GFR (Non-Af Amer) 36.5 BUN/Creatinine Ratio 13.2 Glucose 215 H POC Glucose Estimat Average Glucose Hemoglobin A1c Calcium 9.4 Magnesium Total Bilirubin 0.1 L AST ALT 22 Alkaline Phosphatase Troponin I < 0.03 Total Protein 7.1 Albumin 4.1 Globulin 3.0 Albumin/Globulin Ratio 1.4 SARS-CoV-2, RNA, NAAT 08/16/21 08/16/21 08/16/21 17:20 19:25 21:35 WBC RBC Hgb Hct MCV MCH MCHC RDW Std Deviation RDW Coeff of Leo Plt Count MPV Immature Gran % (Auto) Neut % (Auto) Lymph % (Auto) [place] % (Auto) Eos % (Auto) Baso % (Auto) Neut # (Auto) Lymph # (Auto) [place] # (Auto) Eos # (Auto) Baso # (Auto) Immature Gran # (Auto) PT INR APTT PTT Ratio Sodium 137 Potassium Chloride Carbon Dioxide Anion Gap BUN Creatinine Est Cr Clr Drug Dosing Est GFR ( Amer) Est GFR (Non-Af Amer) BUN/Creatinine Ratio Glucose POC Glucose 151 H Estimat Average Glucose Hemoglobin A1c Calcium Magnesium Total Bilirubin AST ALT Alkaline Phosphatase 63 Troponin I Total Protein Albumin Globulin Albumin/Globulin Ratio SARS-CoV-2, RNA, NAAT NEGATIVE 08/17/21 08/17/21 08/17/21 05:42 05:42 05:42 WBC 7.36 RBC 4.51 L Hgb 14.0 Hct 41.7 L MCV 92.5 MCH 31.0 MCHC 33.6 RDW Std Deviation 47.8 H RDW Coeff of Leo 14.1 Plt Count 206 MPV 10.0 Immature Gran % (Auto) 0.4 Neut % (Auto) 56.8 Lymph % (Auto) 24.7 [place] % (Auto) 7.9 Eos % (Auto) 9.9 Baso % (Auto) 0.3 Neut # (Auto) 4.18 Lymph # (Auto) 1.82 [place] # (Auto) 0.58 Eos # (Auto) 0.73 H Baso # (Auto) 0.02 Immature Gran # (Auto) 0.03 H PT 29.8 H INR 3.2 H APTT PTT Ratio Sodium 140 Potassium 3.8 Chloride 107 Carbon Dioxide 25 Anion Gap 8 BUN 29 H Creatinine 1.72 H Est Cr Clr Drug Dosing 40.5 Est GFR ( Amer) 45.4 Est GFR (Non-Af Amer) 39.1 BUN/Creatinine Ratio 16.9 Glucose 116 H POC Glucose Estimat Average Glucose Hemoglobin A1c Calcium 8.5 Magnesium 1.8 Total Bilirubin AST ALT Alkaline Phosphatase Troponin I < 0.03 Total Protein Albumin Globulin Albumin/Globulin Ratio SARS-CoV-2, RNA, NAAT 08/17/21 08/17/21 08/17/21 05:42 08:31 08:51 WBC RBC Hgb Hct MCV MCH MCHC RDW Std Deviation RDW Coeff of Leo Plt Count MPV Immature Gran % (Auto) Neut % (Auto) Lymph % (Auto) [place] % (Auto) Eos % (Auto) Baso % (Auto) Neut # (Auto) Lymph # (Auto) [place] # (Auto) Eos # (Auto) Baso # (Auto) Immature Gran # (Auto) PT INR APTT PTT Ratio Sodium Potassium Chloride Carbon Dioxide Anion Gap BUN Creatinine Est Cr Clr Drug Dosing Est GFR ( Amer) Est GFR (Non-Af Amer) BUN/Creatinine Ratio Glucose POC Glucose 108 H Estimat Average Glucose 177 Hemoglobin A1c 7.8 H Calcium Magnesium Total Bilirubin AST ALT Alkaline Phosphatase Troponin I < 0.03 Total Protein Albumin Globulin Albumin/Globulin Ratio SARS-CoV-2, RNA, NAAT 08/17/21 12:35 WBC RBC Hgb Hct MCV MCH MCHC RDW Std Deviation RDW Coeff of Leo Plt Count MPV Immature Gran % (Auto) Neut % (Auto) Lymph % (Auto) [place] % (Auto) Eos % (Auto) Baso % (Auto) Neut # (Auto) Lymph # (Auto) [place] # (Auto) Eos # (Auto) Baso # (Auto) Immature Gran # (Auto) PT INR APTT PTT Ratio Sodium Potassium Chloride Carbon Dioxide Anion Gap BUN Creatinine Est Cr Clr Drug Dosing Est GFR ( Amer) Est GFR (Non-Af Amer) BUN/Creatinine Ratio Glucose POC Glucose 100 H Estimat Average Glucose Hemoglobin A1c Calcium Magnesium Total Bilirubin AST ALT Alkaline Phosphatase Troponin I Total Protein Albumin Globulin Albumin/Globulin Ratio SARS-CoV-2, RNA, NAAT Diagnostic Findings Echocardiogram, [facility] 08/04/2021 The left ventricular cavity size is normal. The LV wall thickness is mildly increased (concentric). The basal septum is thickened and angulated consistent with sigmoid septum. The left ventricular wall motion is normal. The qualitative LV ejection fraction is 60-64% (normal). The left ventricular diastolic function is mildly abnormal (grade I). Moderate aortic valve sclerosis is present. Aortic stenosis is absent. The aortic root and proximal ascending aorta are normal sized. No pericardial effusion is noted. There is no evidence of pulmonary hypertension.
[2021-08-17] MEDS: INSULIN GLARGINE SOLOSTAR 100 UNITS/ML 3 ML PEN SC SCH ×2 (11:18→21:32)
[2021-08-17] MEDS ORDERED: PHYTONADIONE 5 MG TAB PO ONE (14:36)
--- NOTE | 2021-08-17 15:43 | Electrocardiogram Report ---
Test Reason : Blood Pressure : / mmHG Vent. Rate : 063 BPM Atrial Rate : 063 BPM P-R Int : 222 ms QRS Dur : 088 ms QT Int : 402 ms P-R-T Axes : 027 006 073 degrees QTc Int : 411 ms Sinus rhythm with 1st degree A-V block Abnormal ECG When compared with ECG of 16-AUG-2021 16:03, No significant change was found Confirmed by Moises Tristan ([id number]) on 08/17/2021 3:43:00 PM Referred By: Waldemar Moraes Confirmed By:Peewee Tristan
[2021-08-17] MEDS ORDERED: WARFARIN SOD 10 MG TAB PO SCH (16:30)
--- NOTE | 2021-08-17 17:51 | Hospitalist Progress Note ---
Date of Service August 17, 2021 Assessment & Plan (1) Precordial chest pain: Plan: Ongoing now for over one month. Possible unstable angina. Cont nitro as tolerated and opiate therapy as needed. Add oxygen 2LPM to see if this helps his discomfort. Plan for cath in am. (2) DM type 2 (diabetes mellitus, type 2): Plan: A1C uncontrolled, inpatient glucose controlled on basal bolus insulin therapy. (3) CKD (chronic kidney disease), stage III: Plan: around his baseline. Cont to monitor. IVF pre-procedure with known contrast given for this tomorrow. sTay hydrated. (4) Hypertension: Plan: chronic, controlled. CCM (5) Multiple sclerosis: Plan: chronic cont per outpatient neurology. (6) Current use of salvage determiner anticoagulation: Plan: chronic warfarin given recurrent DVT in the past. warfarin on hold and vit K given today. (7) DVT prophylaxis: Plan: warfarin reversed and held Full Code Dispo-to home when chest pain improved. Fani Haynes DO [facility] Hospitalist Admission and Anticipated Discharge Date Admission Date: August 16, 2021 Subjective 70 yo M presents with ongoing chest pain since mid Dec He reports worsening pain in the last couple of days Pain is a pressure with radiation into the left arm No hypoxia or SOB Pain is limiting Tolerating PO Review of Systems Review of Systems: All systems were reviewed and negative except as indicated in subjective above. Physical Exam Physical Exam: CONSTITUTIONAL: WNWD, vitals as above, generally well- appearing, mild distress from chest pain EYES: normal conjunctivae, no scleral icterus ENT: external ear and nose normal, MMM NECK: trachea midline RESPIRATORY: clear to auscultation bilaterally, no crackles, rales or wheezes, normal respiratory effort CARDIOVASCULAR: regular rate and rhythm, S1 and 2 heard without murmurs, gallops or rubs, no JVD, no peripheral edema CHEST: inspection of chest was normal GASTROINTESTINAL: soft, protuberant, nontender, ND, no guarding MUSCULOSKELETAL: strength 5/5 throughout, head is normocephalic and atraumatic SKIN: warm and dry NEUROLOGIC: CN 2-12 grossly intact, no sensory deficit, normal cognition, normal speech, no tremor, no gross focal deficit. PSYCHIATRIC: alert cooperative and oriented to person, place and time. Results & Data Results & Data ([facility]) Vital Signs (Past 12 Hours) Vital Signs Temp Pulse Resp BP Pulse Ox 08/17/21 12:00 36.9 C 68 18 139/78 98 Laboratory Results Short CBC 08/17/21 Range/Units 05:42 WBC 7.36 (4.8-10.8) K/uL Hgb 14.0 (14.0-18.0) g/dL Hct 41.7 L (42-52) % Plt Count 206 (130-400) K/uL BMP 08/16/21 08/17/21 17:20 05:42 Sodium 137 140 Potassium 3.8 Chloride 107 Carbon Dioxide 25 BUN 29 H Creatinine 1.72 H Glucose 116 H Calcium 8.5 Cardiac Enzymes 08/16/21 08/17/21 08/17/21 Range/Units 16:10 05:42 08:31 Troponin I < 0.03 < 0.03 < 0.03 (0-0.04) ng/ml Liver Function 08/16/21 Range/Units 17:20 AST (13-39) U/L Alkaline Phosphatase 63 (34-104) U/L Medications Administered Current Inpatient Medications Acetaminophen (Acetaminophen 325 Mg Tab) 650 mg PO Q4H PRN PRN Reason: Pain or Fever Stop: 09/15/21 23:44 Allopurinol (Allopurinol 100 Mg Tab) 200 mg PO [facility] Stop: 09/15/21 23:44 Last Admin: 08/17/21 00:33 Dose: 200 mg Documented by: Amlodipine Besylate (Amlodipine Besylate 5 Mg Tab) 10 mg PO [facility] Stop: 09/15/21 23:44 Last Admin: 08/17/21 00:33 Dose: 10 mg Documented by: Aspirin (Aspirin 81 Mg Ectab) 81 mg PO [facility] Stop: 09/16/21 08:59 Last Admin: 08/17/21 09:51 Dose: 81 mg Documented by: Dextrose (Dextrose 50% 50 Ml Syringe) 25 - 50 ml IV UD PRN; Protocol PRN Reason: Hypoglycemia Protocol Stop: 09/15/21 23:44 Ferrous Sulfate (Ferrous Sulfate 325 Mg Tab) [facility] Stop: 09/16/21 08:59 Last Admin: 08/17/21 09:51 Dose: 325 mg Documented by: Finasteride (Finasteride 5 Mg Tab) 5 mg PO [facility] Stop: 09/15/21 23:44 Last Admin: 08/17/21 00:33 Dose: 5 mg Documented by: Glucagon (Glucagon For Inj 1 Mg Vial) 1 mg IM UD PRN; Protocol PRN Reason: Hypoglycemia Protocol Stop: 09/15/21 23:44 Glucose (Glucose 40% Gel 15 Gm Tube) 15 - 30 gm PO UD PRN; Protocol PRN Reason: Hypoglycemia Protocol Stop: 09/15/21 23:44 Glucose (Glucose 10 Tabs/Tube) 4 - 8 tabs PO UD PRN; Protocol PRN Reason: Hypoglycemia Protocol Stop: 09/15/21 23:44 Hydromorphone HCl (Hydromorphone Inj 0.5 Mg/0.5 Ml Syr) 0.25 mg IV Q3H PRN PRN Reason: Pain Stop: 08/31/21 00:29 Last Admin: 08/17/21 14:07 Dose: 0.25 mg Documented by: Sodium Chloride (Nss 1000ml) 1,000 mls @ 86 mls/hr IV .[id number] [facility] Stop: 09/17/21 00:00 Insulin Aspart (Insulin Aspart Per Unit) 0 units SC ACHS JOYCE Stop: 09/15/21 20:59 Last Admin: 08/17/21 12:41 Dose: Not Given Documented by: Insulin Glargine (Insulin Glargine Solostar 100 Units/Ml 3 Ml Pen) 20 units SC BID [facility] Stop: 09/15/21 20:59 Last Admin: 08/17/21 11:18 Dose: 20 units Documented by: Lisinopril (Lisinopril 20 Mg Tab) 20 mg PO QAM [facility] Stop: 09/16/21 08:59 Last Admin: 08/17/21 09:51 Dose: 20 mg Documented by: Miscellaneous (Carbohydrates For Hypoglycemia ) 15 - 30 gm PO UD PRN PRN Reason: Hypoglycemia Treatment Stop: 09/15/21 23:44 Nitroglycerin (Nitroglycerin 2% Ointment 30gm Tube) 0.5 inch EXT Q6H JOYCE Stop: 09/15/21 20:45 Last Admin: 08/17/21 15:59 Dose: Not Given Documented by: Nitroglycerin (Nitroglycerin Sl 0.4 Mg/Tab Tab) 0.4 mg SL Q5M PRN PRN Reason: Chest Pain Stop: 09/15/21 23:44 Ondansetron HCl (Ondansetron Inj 2 Mg/Ml 2 Ml Vial) 4 mg IV Q6H PRN PRN Reason: Nausea Stop: 09/15/21 23:44 Pantoprazole Sodium (Pantoprazole 40 Mg Tab) 40 mg PO [facility] Stop: 09/16/21 08:59 Last Admin: 08/17/21 09:51 Dose: 40 mg Documented by: Polyethylene Glycol (Polyethylene (Miralax) 17 Gm Pack) 17 gm PO DAILY PRN PRN Reason: Constipation Stop: 09/15/21 23:44 Vitamin D (Cholecalciferol 1,000 Units 25 Mcg Tab) 1,000 units PO [facility] Stop: 09/16/21 08:59 Last Admin: 08/17/21 09:51 Dose: 1,000 units Documented by: Warfarin Sodium (Warfarin Sod 5 Mg Tab) 5 mg PO Mo@1630 [facility] Stop: 09/21/21 16:29 Zinc Sulfate (Zinc Sulfate 220 Mg Capsule) 220 mg PO [facility] Stop: 09/16/21 08:59 Last Admin: 08/17/21 09:51 Dose: 220 mg Documented by:
[2021-08-17] MEDS: HYDROmorphone HCL 2 MG TAB PO PRN (18:37)
[2021-08-18] MEDS: SODIUM CHLORIDE 0.9% 1000ML 1,000 ML IV SCH ×2 (03:05→11:40)
[2021-08-18 06:22] LABS: INR 2.4 (0.9-1.1); Prothrombin Time 22.9 Seconds (9.0-12.0)
[2021-08-18 06:36] LABS: BUN Creatinine Ratio 15.8 (10-20); Calcium 7.9 mg/dl (8.5-10.1); Creatinine Clr Calc Pharmacy 42.2 ml/min; Est GFR (African American) 47.7 ml/min; Est GFR (Non-African American) 41.1 ml/min; Potassium 3.9 mmol/L (3.5-5.1)
[2021-08-18] MEDS: HYDROmorphone INJ 0.5 MG/0.5 ML SYR IV PRN ×3 (06:50→18:47)
[2021-08-18] MEDS: FERROUS SULFATE 325 MG TAB PO SCH (08:19)
[2021-08-18] MEDS: ASPIRIN 81 MG ECTAB PO SCH (08:19)
[2021-08-18] MEDS: CHOLECALCIFEROL 1,000 UNITS 25 MCG TAB PO SCH (08:19)
[2021-08-18] MEDS: lisinopril 20 MG TAB PO SCH (08:19)
[2021-08-18] MEDS ORDERED: PHYTONADIONE 5 MG TAB PO STA (08:19)
[2021-08-18] MEDS: ZINC SULFATE 220 MG CAPSULE PO SCH (08:20)
[2021-08-18] MEDS: PANTOprazole 40 MG TAB PO SCH (08:20)
[2021-08-18] MEDS: INSULIN GLARGINE SOLOSTAR 100 UNITS/ML 3 ML PEN SC SCH (08:20)
[2021-08-18] MEDS: INSULIN ASPART PER UNIT SC SCH ×3 (08:26→18:44)
[2021-08-18] MEDS: NITROGLYCERIN 2% OINTMENT 30GM TUBE EXT SCH ×3 (11:29→16:58)
--- NOTE | 2021-08-18 11:52 | Cardiology Progress Note ---
Date of Service August 18, 2021 Assessment & Plan (1) Precordial chest pain: (2) SOB (shortness of breath): (3) Supratherapeutic INR: (4) CKD (chronic kidney disease), stage III: (5) HTN (hypertension): Plan: Patient is a 70-year-old male with multiple cardiovascular risk factors who presents with several weeks history of left shoulder and chest pain somewhat atypical for angina but persistent. Cardiac enzymes and EKGs unrevealing. Echocardiogram done recently demonstrates preserved LV systolic function. Persistent symptoms noted this morning. Patient is NPO for diagnostic cardiac cath today given persistent symptoms and cardiac risk factors. Coumadin on hold. INR at 2.4 this morning. Renal function improved to 1.6 today. Continue gentle hydration. Further recommendations pending results of cardiac cath. remain NPO. Cath tentatively early afternoon. Case discussed with Dr. Moraes. Will follow. . Admission and Anticipated Discharge Date Admission Date: August 16, 2021 Supervising Physician Co-Signing Physician Notes Patient was seen and examined. Cardiac catheterization and risk discussed in detail with patient anticipate procedure later today Subjective Patient resting in bed. at bedside. Reports ongoing left sided chest di scomfort radiating to under left axilla region. Received pain medication within the last hour and feels symptoms are slowly improving. No SOB, diaphoresis, nausea, vomiting. Remains NPO for cath today. No dizziness. No palpitations Review of Systems Review of Systems: All systems reviewed & are unremarkable except as noted in HPI & below Physical Exam Constitutional: WD/WN, vitals as above Eyes: PERRL, conjunctivae normal, anicteric sclerae ENMT: external ear and nose normal, oropharynx normal Neck: trachea midline, no thyromegaly Respiratory: normal respiratory effort, lungs clear to auscultation Cardiovascular: Rate/Rhythm: regular rate and regular rhythm Heart Sounds: normal S1, normal S2 and + murmur (2/6 systolic murmur best at the right upper sternal border); no gallop Palpation: normal PMI Vessels: normal carotid upstroke and radial pulses present; no JVD and no carotid bruit Extremities: no edema Gastrointestinal (Abdomen): normal bowel sounds, soft, nontender, no hepatosplenomegaly Musculoskeletal: no cyanosis or clubbing, extremities motor strength 5/5 Skin: no rashes, warm and dry Neurologic: PERRL, EOMI, accommodation nl, no face palsy, no dysarthria Psychiatric: A+Ox3, euthymic affect Results & Data ([facility]) Vital Signs (Past 12 Hours) Vital Signs Temp Pulse Resp BP BP Pulse Ox 08/18/21 11:23 36.6 C 67 18 128/72 97 08/18/21 08:14 69 14 135/80 96 Laboratory Results 08/18/21 08/18/21 08/18/21 Range/Units 08:25 05:53 05:53 PT 22.9 H (9.0-12.0) Seconds INR 2.4 H (0.9-1.1) Sodium 137 (136-145) mmol/L Potassium 3.9 (3.5-5.1) mmol/L Chloride 108 H (98-107) mmol/L Carbon Dioxide 24 (21-32) mmol/L Anion Gap 5 (3-11) BUN 26 H (6-23) mg/dl Creatinine 1.65 H (0.6-1.4) mg/dl Est Cr Clr Drug Dosing 42.2 ml/min Est GFR ( Amer) 47.7 ml/min Est GFR (Non-Af Amer) 41.1 ml/min BUN/Creatinine Ratio 15.8 (10-20) Glucose 139 H (70-99(Fasting)) mg/dl POC Glucose 141 H (70-99) mg/dl Calcium 7.9 L (8.5-10.1) mg/dl 08/17/21 08/17/21 08/17/21 Range/Units 21:15 17:55 12:35 PT (9.0-12.0) Seconds INR (0.9-1.1) Sodium (136-145) mmol/L Potassium (3.5-5.1) mmol/L Chloride (98-107) mmol/L Carbon Dioxide (21-32) mmol/L Anion Gap (3-11) BUN (6-23) mg/dl Creatinine (0.6-1.4) mg/dl Est Cr Clr Drug Dosing ml/min Est GFR ( Amer) ml/min Est GFR (Non-Af Amer) ml/min BUN/Creatinine Ratio (10-20) Glucose (70-99(Fasting)) mg/dl POC Glucose 123 H 109 H 100 H (70-99) mg/dl Calcium (8.5-10.1) mg/dl Diagnostic Findings Telemetry reviewed - NSR, no arrhythmias noted. Medications Administered Current Inpatient Medications Acetaminophen (Acetaminophen 325 Mg Tab) 650 mg PO Q4H PRN PRN Reason: Pain or Fever Stop: 09/15/21 23:44 Allopurinol (Allopurinol 100 Mg Tab) 200 mg PO [facility] Stop: 09/15/21 23:44 Last Admin: 08/17/21 21:31 Dose: 200 mg Documented by: Amlodipine Besylate (Amlodipine Besylate 5 Mg Tab) 10 mg PO [facility] Stop: 09/15/21 23:44 Last Admin: 08/17/21 21:31 Dose: 10 mg Documented by: Aspirin (Aspirin 81 Mg Ectab) 81 mg PO [facility] Stop: 09/16/21 08:59 Last Admin: 08/18/21 08:19 Dose: 81 mg Documented by: Dextrose (Dextrose 50% 50 Ml Syringe) 25 - 50 ml IV UD PRN; Protocol PRN Reason: Hypoglycemia Protocol Stop: 09/15/21 23:44 Ferrous Sulfate (Ferrous Sulfate 325 Mg Tab) 325 mg PO [facility] Stop: 09/16/21 08:59 Last Admin: 08/18/21 08:19 Dose: 325 mg Documented by: Finasteride (Finasteride 5 Mg Tab) 5 mg PO [facility] Stop: 09/15/21 23:44 Last Admin: 08/17/21 21:30 Dose: 5 mg Documented by: Glucagon (Glucagon For Inj 1 Mg Vial) 1 mg IM UD PRN; Protocol PRN Reason: Hypoglycemia Protocol Stop: 09/15/21 23:44 Glucose (Glucose 40% Gel 15 Gm Tube) 15 - 30 gm PO UD PRN; Protocol PRN Reason: Hypoglycemia Protocol Stop: 09/15/21 23:44 Glucose (Glucose 10 Tabs/Tube) 4 - 8 tabs PO UD PRN; Protocol PRN Reason: Hypoglycemia Protocol Stop: 09/15/21 23:44 Hydromorphone HCl (Hydromorphone Hcl 2 Mg Tab) 2 mg PO Q4H PRN PRN Reason: Pain Stop: 08/31/21 17:52 Last Admin: 08/17/21 18:37 Dose: 2 mg Documented by: Hydromorphone HCl (Hydromorphone Inj 0.5 Mg/0.5 Ml Syr) 0.5 mg IV Q3H PRN PRN Reason: Pain Stop: 08/31/21 00:29 Last Admin: 08/18/21 11:30 Dose: 0.5 mg Documented by: Sodium Chloride (Nss 1000ml) 1,000 mls @ 86 mls/hr IV .[id number] [facility] Stop: 09/17/21 00:00 Last Admin: 08/18/21 11:40 Dose: 86 mls/hr Documented by: Insulin Aspart (Insulin Aspart Per Unit) 0 units SC ACHS [facility] Stop: 09/15/21 20:59 Last Admin: 08/18/21 08:26 Dose: 1 units Documented by: Insulin Glargine (Insulin Glargine Solostar 100 Units/Ml 3 Ml Pen) 20 units SC BID [facility] Stop: 09/15/21 20:59 Last Admin: 08/18/21 08:20 Dose: 20 units Documented by: Lisinopril (Lisinopril 20 Mg Tab) 20 mg PO QAM [facility] Stop: 09/16/21 08:59 Last Admin: 08/18/21 08:19 Dose: 20 mg Documented by: Miscellaneous (Carbohydrates For Hypoglycemia ) 15 - 30 gm PO UD PRN PRN Reason: Hypoglycemia Treatment Stop: 09/15/21 23:44 Nitroglycerin (Nitroglycerin 2% Ointment 30gm Tube) 0.5 inch EXT Q6H [facility] Stop: 09/15/21 20:45 Last Admin: 08/18/21 11:29 Dose: 0.5 inch Documented by: Nitroglycerin (Nitroglycerin Sl 0.4 Mg/Tab Tab) 0.4 mg SL Q5M PRN PRN Reason: Chest Pain Stop: 09/15/21 23:44 Ondansetron HCl (Ondansetron Inj 2 Mg/Ml 2 Ml Vial) 4 mg IV Q6H PRN PRN Reason: Nausea Stop: 09/15/21 23:44 Pantoprazole Sodium (Pantoprazole 40 Mg Tab) 40 mg PO QAM [facility] Stop: 09/16/21 08:59 Last Admin: 08/18/21 08:20 Dose: 40 mg Documented by: Polyethylene Glycol (Polyethylene (Miralax) 17 Gm Pack) 17 gm PO DAILY PRN PRN Reason: Constipation Stop: 09/15/21 23:44 Vitamin D (Cholecalciferol 1,000 Units 25 Mcg Tab) 1,000 units PO [facility] Stop: 09/16/21 08:59 Last Admin: 08/18/21 08:19 Dose: 1,000 units Documented by: Warfarin Sodium (Warfarin Sod 5 Mg Tab) 5 mg PO Mo@1630 [facility] Stop: 09/21/21 16:29 Zinc Sulfate (Zinc Sulfate 220 Mg Capsule) 220 mg PO [facility] Stop: 09/16/21 08:59 Last Admin: 08/18/21 08:20 Dose: 220 mg Documented by:
[2021-08-18] MEDS ORDERED: HEPARIN (PORCINE) 1000 UNIT/ML 10 ML (CATH LAB USE ONLY) ONE (12:28)
[2021-08-18] MEDS ORDERED: fentaNYL citrate 100 MCG/2 ML VIAL ONE (12:28)
[2021-08-18] MEDS ORDERED: NITROGLYCERIN/D5W 100MCG/ML 20ML SYR ONE (12:28)
[2021-08-18] MEDS ORDERED: niCARdipine HCL INJ 2.5 MG/ML 10 ML AMP ONE (12:28)
[2021-08-18] MEDS ORDERED: MIDAZOLAM HCL 1 MG/ML 2ML VIAL ONE (12:28)
--- NOTE | 2021-08-18 14:22 | Post Anesthesia Assessment ---
Date of Service August 18, 2021 Post Sedation Assessment Vital Signs Temp Pulse Resp BP BP Pulse Ox Pulse Ox 08/18/21 11:23 36.6 C 67 18 128/72 97 08/18/21 08:14 69 14 135/80 96 08/17/21 23:45 96 08/17/21 21:00 72 12 152/74 H 96 08/17/21 16:00 37 C 80 18 136/73 96 Recovery Score Activity: Moves 4 extremities Respiration: Deep Breath/Cough Circulation: +/-20% PreAnes Value Consciousness: Fully Awake Oxygen Saturation: > 92% On Room Air Discharge Sedation Level of Care: Phase I Post Sedation Plan On clinical assessment, the patient appears to have tolerated the sedation without complications. Patient is recovering as anticipated. Patient will continue to be monitored by nursing and may be discharged when sedation discharge criteria are met per below protocol. Upon Completions of procedure up to 15 minutes continue every 5 minute vital signs and the P.A.R. score; then discharge to a Phase I or Fast Track to Phase II per the following guidelines: * Discharge Patient to appropriate Phase II area if PAR is 8 or greater or return to pre- procedure baseline. The post - procedure orders will be as directed. * If PAR score is less than 8 or not return to pre-procedure baseline then patient will follow Phase I monitoring till PAR is reached for Phase II. The Phase I may be done in procedure room or may call to secure a Phase I area. * If naloxone or flumazenil are used for reversal, hold in Phase I for continued monitoring from when last reversal dose was given for a minimum of 60 minutes or longer pending the nurse and/or physician discretion of patient condition before discharge to Phase II. Please call the Sedation Physician to re-evaluate and complete post-note for discharge to Phase II area. Do NOT discharge from procedure sedation or Phase 1 until post- sedation evaluation note is complete by procedure /sedation MD Sedation Discharge Instructions to be given to the patient at discharge to home.
--- NOTE | 2021-08-18 14:27 | Cardiac Catheterization ---
Cardiac Cath Procedure Brief Procedure Date August 18, 2021 Pre-Procedure Diagnosis Pre-Procedure Diagnosis: Angina AUC Score AUC Score: 8 Post-Procedure Diagnosis Post-Procedure Diagnosis: Severe CAD Procedure(s) Performed Procedure(s) Performed: Coronary Angiography and Left Heart Cath Front Sight Attacher Waldemar Moraes MD Resource Conservation Manager(s) Geena Estimated Blood Loss Estimated Blood Loss: <15cc Medication(s) Medication(s): Fentanyl (12.5 mcg IV), Lidocaine 1% (Local infiltration access site), Nicardipine (250 mcg intra-arterial after arterial sheath insertion) and Versed (1 mg IV) Preliminary Findings Multivessel coronary artery disease with right dominant coronary anatomy Recommendations Recommendations: Management Recommendatons (Future management will be discussed in detail with patient including percutaneous coronary invention and surgical bypass) Specimens Specimens: None Fluids (cc crystalloids) Fluids (cc crystalloids): 70 Anesthesia Start time: 1348 stop time: 1412 Procedural Complication(s) None Disposition 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
[2021-08-18] MEDS ORDERED: SODIUM CHLORIDE 0.9% 1000ML 1,000 ML IV SCH (14:30)
--- NOTE | 2021-08-18 15:01 | Cardiac Catheterization ---
Cardiac Cath Procedure Full Procedure Date August 18, 2021 Pre-Procedure Diagnosis Pre-Procedure Diagnosis: Angina AUC Score AUC Score: 8 Post-Procedure Diagnosis Post-Procedure Diagnosis: Severe CAD Procedure(s) Performed Procedure(s) Performed: Coronary Angiography and Left Heart Cath Yarn Man Waldemar Moraes MD Reservoir Engineer(s) Geena Estimated Blood Loss Estimated Blood Loss: <15cc Medication(s) Medication(s): Fentanyl (12.5 mcg IV), Lidocaine 1% (Local infiltration access site), Nicardipine (250 mcg intra-arterial after arterial sheath insertion) and Versed (1 mg IV) Summary of Findings Final impressions: Right dominant coronary anatomy with multivessel coronary artery disease including proximal left anterior descending Procedure: Left heart catheterization, coronary angiography Vascular Access: Right radial single stick without difficulty Catheters: Long 6 [place] glide radial sheath, 5 [place] 5 [place] straight pigtail Coronary angiography: Right dominant Left main: Normal size and length without obstruction Left anterior descending: Moderately large caliber type III vessel. It gives rise to a large diagonal branch and a large septal branch at the end of its proximal third. The proximal left understanding has an extended area of calcified eccentric lesion of 80 to 90% Ramus intermedius: Moderately large vessel with a long 70 to 80% stenosis in its midportion Left circumflex: Large caliber vessel which gives rise to a small marginal branch and 2 large posterior ventricular branches. Within the left circumflex there is a 75% narrowing in its proximal one third Right coronary artery: Moderate caliber vessel dominant distribution. Gives rise to a right ventricular branch, at the AV groove a long thin posterior descending artery and a single posterior ventricular branch. There is moderate irregularities in the proximal mid right coronary artery. The posterior descending artery has a 90% stenosis in its distal portion LV angiography: Not performed Hemodynamics Rest Ao:: 119/67/88 Final Ao: 134/68/85 LV: 129/5/25 Recommendations Recommendations: Management Recommendatons (Future management will be discussed in detail with patient including percutaneous coronary invention and surgical bypass) Specimens Specimens: None Radiation Exposure (mGy) 631 Contrast (mls) 50 Fluids (cc crystalloids) Fluids (cc crystalloids): 70 Anesthesia Start time: 1348 stop time: 1412 Procedural Complication(s) None Disposition Heat Treat Supervisor Holding/Recovery I attest to the content of the Intraoperative Record and any orders documented therein. Any exceptions are noted below. ACC Data: Heat Treat Supervisor Cardiac Status Clinical evaluation leading to the procedure 70-year-old male with multiple risk factors presents with 3 weeks history of rest chest pain CAD Presenation: Unstable angina Anginal Classification: CCS IV Heart Failure: No Cardiogenic Shock within 24 Hours: No Cardiac Arrest within 24 Hours: No Imaging Studies Past 6 Months: Yes Stress Studies Past 6 Months: No Standard Exercise Test: No Stress Echocardiogram: No Stress Testing w/SPECT MPI: No Cardiac CTA: No Coronary Anatomy Dominant: Right Left Main (% Stenosis): Normal LAD (% Stenosis): Proximal (Long 80 to 90% tortuous lesion) and Mid (60-70) D1 (% Stenosis): Mid (50) Circumflex (% Stenosis): Mid (75) OM1 (% Stenosis): Normal L PL1 (% Stenosis): Normal (Large) RCA (% Stenosis): Proximal (30) and Mid (30) R PDA (% Stenosis): Distal (90) Ramus (% Stenosis): Mid (70-80) Left Ventricular Angiography EF (%): N/A Diagnostic Physicians Name: Waldemar Moraes MD Status: Urgent Closure Device Percutaneous Entry Location: Radial Closure Device: Radial Band Recommendations: Management Recommendatons (Future management will be discussed in detail with patient including percutaneous coronary invention and surgical bypass)
--- NOTE | 2021-08-18 15:59 | Communication Note ---
Date of Service: August 18, 2021 Patient seen post cardiac catheterization. Results of the study discussed in detail with patient and . Study demonstrated three-vessel disease including proximal left anterior descending. Options of management discussed including surgical revascularization as well as coronary intervention. Patient wishes to be evaluated for surgical revascularization which appears appropriate in the setting of three-vessel disease and diabetes Still with left shoulder and chest pain which appears nonischemic in origin. Discussed with [facility] Tj Varela. We will make arrangements for transfer and surgical evaluation
--- NOTE | 2021-08-18 18:02 | Discharge Summary ---
Date of Service August 18, 2021 Admission HPI Per Admitting Provider This 70-year-old male with past medical history significant for diabetes, diabetic polyneuropathy, chronic kidney disease stage III, hyperlipidemia, multinodular goiter, diabetic retinopathy, gout, asthma in remission, hypertension, GERD, chronic arthralgias of polymyalgia rheumatica, monoclonal gammopathy of unknown significance, history of DVT on Coumadin, who comes with chest pain. The patient has had increased chest pain since June, he saw recently Cardiology and had echo was unremarkable and CT of chest was done, which was also unremarkable. There is a plan for Lexiscan nuclear stress test in August, but the last few days, the pain got worse, it was 9/10 in severity in the left side of chest, radiating to his left arm, shoulder and also jaw and called the Cardiology office and was referred to come to the hospital. Currently, initial workup is unremarkable. He rated his pain as 9/10 in severity, associated with some shortness of breath and some dizziness. No nausea or vomiting. No sweating, has chronic blurred vision, no earache, has chronic runny nose, no sore throat. No cough. Appetite is okay. No difficulty swallowing. No abdominal pain, normal bowel and bladder movements. No hematuria, no blood in stools or black stools. Sometimes he gets swelling in the left lower extremity from his DVT. Ambulating okay, when he ambulates, the chest pain is not getting worse, the chest pain is mostly constant pain. Admission Exam Per Admitting Provider GENERAL: The patient is of moderate build, not in acute distress. VITAL SIGNS: Temperature 37.1, pulse 77, respiratory rate 27, blood pressure 181/93, oxygen 98% on room air. HEENT: Pupils equal, round and reactive to light. Oral mucosa moist. NECK: No JVD, no neck masses. CARDIOVASCULAR: S1 and S2 heard. Regular rate and rhythm. No murmur, no gallop. RESPIRATORY SYSTEM: Normal AP diameter. No accessory muscle use. No wheezing, no crackles. ABDOMEN: Soft, bowel sounds present, nontender, no distention. CENTRAL NERVOUS SYSTEM: Cranial nerves II-XII grossly intact, nonfocal. EXTREMITIES: No edema, no erythema. Principal Diagnosis Precordial chest pain CAD-3 vessel disease s/p left heart catheterization on 08/18/21 CKD Stage III Discharge Exam CONSTITUTIONAL: WNWD, vitals as above, generally well-appearing EYES: normal conjunctivae, no scleral icterus ENT: external ear and nose normal, MMM NECK: trachea midline RESPIRATORY: clear to auscultation bilaterally, no crackles, rales or wheezes, normal respiratory effort CARDIOVASCULAR: regular rate and rhythm, S1 and 2 heard without murmurs, gallops or rubs, no JVD, no peripheral edema CHEST: inspection of chest was normal GASTROINTESTINAL: soft, protuberant, nontender, ND, no guarding MUSCULOSKELETAL: strength 5/5 throughout, head is normocephalic and atraumatic SKIN: warm and dry NEUROLOGIC: CN 2-12 grossly intact, no sensory deficit, normal cognition, normal speech, no tremor, no gross focal deficit. PSYCHIATRIC: alert cooperative and oriented to person, place and time. Discharge Data Allergies Allergy/AdvReac Type Severity Reaction Status Date / Time morphine AdvReac Severe Vomiting Verified 08/16/21 19:15 rosuvastatin [From Crestor] AdvReac Intermediate Cramping Verified 08/16/21 19:15 of the Muscles Consultations 08/16/21 19:09 ED Decision to Admit Stat 08/17/21 08:00 Consult Cardiology Routine Procedures Performed Operation Date: 08/17/21 11:00 <No data on this case meets the specified criteria> Operation Date: 08/18/21 12:30 Actual Procedures p Cath, Left with Cors and Vent - Waldemar Moraes MD s Cineradiography w/Routine Exam - Waldemar Moraes MD Ordered Studies Laboratory Results WBC 7.36 K/uL (4.8-10.8) 08/17/21 05:42 RBC 4.51 M/uL (4.7-6.1) L 08/17/21 05:42 Hgb 14.0 g/dL (14.0-18.0) 08/17/21 05:42 Hct 41.7 % (42-52) L 08/17/21 05:42 MCV 92.5 fL (80-100) 08/17/21 05:42 MCH 31.0 pg (25-34) 08/17/21 05:42 MCHC 33.6 g/dL (32-36) 08/17/21 05:42 RDW Std Deviation 47.8 fL (36.4-46.3) H 08/17/21 05:42 RDW Coeff of Leo 14.1 % (11.5-14.5) 08/17/21 05:42 Plt Count 206 K/uL (130-400) 08/17/21 05:42 MPV 10.0 fL (7.4-10.4) 08/17/21 05:42 Immature Gran % (Auto) 0.4 % 08/17/21 05:42 Neut % (Auto) 56.8 % 08/17/21 05:42 Lymph % (Auto) 24.7 % 08/17/21 05:42 Fleming % (Auto) 7.9 % 08/17/21 05:42 Eos % (Auto) 9.9 % 08/17/21 05:42 Baso % (Auto) 0.3 % 08/17/21 05:42 Neut # (Auto) 4.18 K/uL (1.4-6.5) 08/17/21 05:42 Lymph # (Auto) 1.82 K/uL (1.2-3.4) 08/17/21 05:42 Fleming # (Auto) 0.58 K/uL (0.11-0.59) 08/17/21 05:42 Eos # (Auto) 0.73 K/uL (0-0.5) H 08/17/21 05:42 Baso # (Auto) 0.02 K/uL (0-0.2) 08/17/21 05:42 Immature Gran # (Auto) 0.03 K/uL (0.00-0.02) H 08/17/21 05:42 PT 19.0 Seconds (9.0-12.0) H 08/18/21 11:53 INR 2.0 (0.9-1.1) H 08/18/21 11:53 APTT 45.1 Seconds (21.0-31.0) H* 08/16/21 16:10 PTT Ratio 1.7 08/16/21 16:10 Sodium 137 mmol/L (136-145) 08/18/21 05:53 Potassium 3.9 mmol/L (3.5-5.1) 08/18/21 05:53 Chloride 108 mmol/L (98-107) H 08/18/21 05:53 Carbon Dioxide 24 mmol/L (21-32) 08/18/21 05:53 Anion Gap 5 (3-11) 08/18/21 05:53 BUN 26 mg/dl (6-23) H 08/18/21 05:53 Creatinine 1.65 mg/dl (0.6-1.4) H 08/18/21 05:53 Est Cr Clr Drug Dosing 42.2 ml/min 08/18/21 05:53 Est GFR ( Amer) 47.7 ml/min 08/18/21 05:53 Est GFR (Non-Af Amer) 41.1 ml/min 08/18/21 05:53 BUN/Creatinine Ratio 15.8 (10-20) 08/18/21 05:53 Glucose 139 mg/dl (70-99(Fasting)) H 08/18/21 05:53 POC Glucose 127 mg/dl (70-99) H 08/18/21 11:57 Estimat Average Glucose 177 mg/dl 08/17/21 05:42 Hemoglobin A1c 7.8 % (4.5-5.6) H 08/17/21 05:42 Calcium 7.9 mg/dl (8.5-10.1) L 08/18/21 05:53 Magnesium 1.8 mg/dl (1.7-2.4) 08/17/21 05:42 Total Bilirubin 0.1 mg/dl (0.2-1.0) L 08/16/21 16:10 AST U/L (13-39) 08/16/21 17:20 ALT 22 U/L (7-52) 08/16/21 16:10 Alkaline Phosphatase 63 U/L (34-104) 08/16/21 17:20 Troponin I < 0.03 ng/ml (0-0.04) 08/17/21 08:31 Total Protein 7.1 gm/dl (6.0-8.3) 08/16/21 16:10 Albumin 4.1 gm/dl (3.4-5.0) 08/16/21 16:10 Globulin 3.0 gm/dl (2.5-4.0) 08/16/21 16:10 Albumin/Globulin Ratio 1.4 (0.9-2) 08/16/21 16:10 SARS-CoV-2, RNA, NAAT NEGATIVE (NEGATIVE) 08/16/21 19:25 Impressions Chest X-Ray 08/16/21 15:51 XR chest 1V portable CLINICAL HISTORY: Atypical chest pain TECHNIQUE: Single frontal radiograph of the chest was obtained. Comparison: Comparison is made to chest one view 10/30/2020 FINDINGS: No lines and tubes are seen. The cardiomediastinal silhouette is normal. The lungs are clear. No evidence of pleural effusion or pneumothorax. IMPRESSION: No acute chest disease. ACT 112: Negative or not required by law. Electronically signed by: Vincent King M.D. 08/16/2021 4:38 PM Hospital Course (1) Precordial chest pain: (2) CAD (coronary artery disease): (3) DM type 2 (diabetes mellitus, type 2): (4) CKD (chronic kidney disease), stage III: (5) Hypertension: (6) Multiple sclerosis: (7) Current use of senior care anticoagulation: 70 yo M presented with severe ongoing left chest pain with radiation into his arm for over one month. He has uncontrolled diabetes (A1c 7.8) complicated by polyneuropathy and retinopathy, CKD Stage III, and multiple sclerosis. He is also on senior care anticoagulation with coumadin for recurrent DVT. Cardiac enzymes were trended and were negative despite ongoing pain. He refused nitroglycerin after it gave him a significant headache, however, pain was improved with intravenous dilaudid. Oral narcotic was less effective. Cardiology was consulted and he underwent a left heart catheterization on 08/18, after receiving vitamin K for an INR 3.2 and some IVF with a creatinine of 1.82. The following day, he underwent a left heart catheterization revealing three vessel disease including the proximal left anterior descending. After management options were discussed, he will be transferred for surgical evaluation by Dr. Varela at [facility] in [place], [place]. He was transferred there later that day. Current Inpatient Medications Acetaminophen (Acetaminophen 325 Mg Tab) 650 mg PO Q4H PRN PRN Reason: Pain or Fever Stop: 09/15/21 23:44 Allopurinol (Allopurinol 100 Mg Tab) 200 mg PO HS [facility] Stop: 09/15/21 23:44 Last Admin: 08/17/21 21:31 Dose: 200 mg Documented by: Amlodipine Besylate (Amlodipine Besylate 5 Mg Tab) 10 mg PO HS JOYCE Stop: 09/15/21 23:44 Last Admin: 08/17/21 21:31 Dose: 10 mg Documented by: Aspirin (Aspirin 81 Mg Ectab) 81 mg PO QAM [facility] Stop: 09/16/21 08:59 Last Admin: 08/18/21 08:19 Dose: 81 mg Documented by: Dextrose (Dextrose 50% 50 Ml Syringe) 25 - 50 ml IV UD PRN; Protocol PRN Reason: Hypoglycemia Protocol Stop: 09/15/21 23:44 Ferrous Sulfate (Ferrous Sulfate 325 Mg Tab) 325 mg PO QAM [facility] Stop: 09/16/21 08:59 Last Admin: 08/18/21 08:19 Dose: 325 mg Documented by: Finasteride (Finasteride 5 Mg Tab) 5 mg PO HS [facility] Stop: 09/15/21 23:44 Last Admin: 08/17/21 21:30 Dose: 5 mg Documented by: Glucagon (Glucagon For Inj 1 Mg Vial) 1 mg IM UD PRN; Protocol PRN Reason: Hypoglycemia Protocol Stop: 09/15/21 23:44 Glucose (Glucose 40% Gel 15 Gm Tube) 15 - 30 gm PO UD PRN; Protocol PRN Reason: Hypoglycemia Protocol Stop: 09/15/21 23:44 Glucose (Glucose 10 Tabs/Tube) 4 - 8 tabs PO UD PRN; Protocol PRN Reason: Hypoglycemia Protocol Stop: 09/15/21 23:44 Hydromorphone HCl (Hydromorphone Hcl 2 Mg Tab) 2 mg PO Q4H PRN PRN Reason: Pain Stop: 08/31/21 17:52 Last Admin: 08/17/21 18:37 Dose: 2 mg Documented by: Hydromorphone HCl (Hydromorphone Inj 0.5 Mg/0.5 Ml Syr) 0.5 mg IV Q3H PRN PRN Reason: Pain Stop: 08/31/21 00:29 Last Admin: 08/18/21 11:30 Dose: 0.5 mg Documented by: Sodium Chloride (Nss 1000ml) 1,000 mls @ 86 mls/hr IV .[id number] [facility] Stop: 09/17/21 00:00 Last Admin: 08/18/21 11:40 Dose: 86 mls/hr Documented by: Sodium Chloride (Nss 1000ml) 1,000 mls @ 100 mls/hr IV .Q10H [facility] Stop: 09/17/21 14:29 Insulin Aspart (Insulin Aspart Per Unit) 0 units SC ACHS [facility] Stop: 09/15/21 20:59 Last Admin: 08/18/21 16:57 Dose: Not Given Documented by: Insulin Glargine (Insulin Glargine Solostar 100 Units/Ml 3 Ml Pen) 20 units SC BID [facility] Stop: 09/15/21 20:59 Last Admin: 08/18/21 08:20 Dose: 20 units Documented by: Lisinopril (Lisinopril 20 Mg Tab) 20 mg PO QAM [facility] Stop: 09/16/21 08:59 Last Admin: 08/18/21 08:19 Dose: 20 mg Documented by: Miscellaneous (Carbohydrates For Hypoglycemia ) 15 - 30 gm PO UD PRN PRN Reason: Hypoglycemia Treatment Stop: 09/15/21 23:44 Nitroglycerin (Nitroglycerin 2% Ointment 30gm Tube) 0.5 inch EXT Q6H [facility] Stop: 09/15/21 20:45 Last Admin: 08/18/21 16:58 Dose: Not Given Documented by: Nitroglycerin (Nitroglycerin Sl 0.4 Mg/Tab Tab) 0.4 mg SL Q5M PRN PRN Reason: Chest Pain Stop: 09/15/21 23:44 Ondansetron HCl (Ondansetron Inj 2 Mg/Ml 2 Ml Vial) 4 mg IV Q6H PRN PRN Reason: Nausea Stop: 09/15/21 23:44 Pantoprazole Sodium (Pantoprazole 40 Mg Tab) 40 mg PO [facility] Stop: 09/16/21 08:59 Last Admin: 08/18/21 08:20 Dose: 40 mg Documented by: Polyethylene Glycol (Polyethylene (Miralax) 17 Gm Pack) 17 gm PO DAILY PRN PRN Reason: Constipation Stop: 09/15/21 23:44 Vitamin D (Cholecalciferol 1,000 Units 25 Mcg Tab) 1,000 units PO [facility] Stop: 09/16/21 08:59 Last Admin: 08/18/21 08:19 Dose: 1,000 units Documented by: Warfarin Sodium (Warfarin Sod 5 Mg Tab) 5 mg PO Mo@1630 [facility] Stop: 09/21/21 16:29 Zinc Sulfate (Zinc Sulfate 220 Mg Capsule) 220 mg PO [facility] Stop: 09/16/21 08:59 Last Admin: 08/18/21 08:20 Dose: 220 mg Documented by: Total Time Total Time Spent Total Time Spent (In Minutes): 60 Discharge Plan Discharge Items Patient Disposition: Transfer Acute Care Hospital Reason For Visit: CHEST PAIN Discharge Diagnosis: Precordial chest pain CAD-3 vessel disease s/p left heart catheterization on 08/18/21 CKD Stage III Condition on Discharge: Fair Activity: Resume your previous activity Non-emergency contact: Primary Care Provider and Content Development Manager Call non-emergency contact if: you have any medication questions, your symptoms worsen and your pain is not controlled Follow-up/Referrals: Nacho Chen MD [Primary Care Provider] - (Date & Time 08/24/2021 9:00 AM Provider Nacho Chen III, MD Department [facility] ) Diet: Carb Consistent or DM2 and Heart Healthy Addtl Attending Provider Instructions: You are being transferred to [facility] for further treatment of your heart disease. It is recommended that you follow-up with your primary care provider at least one week after discharge from the hospital. It was a pleasure taking care of you! Please call if you have any questions or problems. You can reach a [facility]ist on duty at [facility] 24 hours a day by calling [phone]. Take care of yourself. Fani Haynes, [facility] Pending Studies at Discharge: No Stand-Alone Forms: My [facility] Skilled Items Patient informed of condition?: Yes DNR: No Discharge Level of Care: Other Communicable Disease: No Discharge Prognosis: Stable Lines: Peripheral IV Urinary Catheter: No Medications and DC Order Prescriptions: No Action ferrous sulfate 325 mg (65 mg iron) Tablet 325 mg PO QAM RF: 0 cholecalciferol (vitamin D3) [Vitamin D3] 1,000 unit Capsule 1,000 unit PO QAM RF: 0 Lantus Solostar U-100 Insulin 100 unit/mL (3 mL) Insulin Pen 42 unit SUBCUT BID RF: 0 metformin 500 mg Tablet 500 mg PO [facility] RF: 0 aspirin 81 mg Tablet,Delayed Release (Dr/Ec) 81 mg PO QAM RF: 0 warfarin 5 mg tablet 10 mg PO [id number] RF: 0 Jardiance 10 mg tablet 10 mg PO HS RF: 0 lisinopril 10 mg tablet 20 mg PO QAM RF: 0 allopurinol 100 mg tablet 200 mg PO HS RF: 0 amlodipine [Norvasc] 5 mg tablet 10 mg PO HS RF: 0 zinc 50 mg Tablet 50 mg PO QAM RF: 0 magnesium 30 mg Tablet 30 mg PO QAM RF: 0 cholecalciferol (vitamin D3) [Vitamin D3] 25 mcg (1,000 unit) Tablet 25 mcg PO QAM RF: 0 omeprazole 20 mg Tablet,Delayed Release (Dr/Ec) 20 mg PO QAM RF: 0 finasteride 5 mg tablet 5 mg PO HS RF: 0 warfarin 5 mg tablet 5 mg PO UD RF: 0 Krames/Other Patient Handouts: Managing Type 2 Diabetes, Special Foot Care for Diabetes Admission Data Admit Date/Time: 08/16/21 20:46 Attending Provider: Fani Haynes Admit Provider: Vick Pickard Primary Care Provider: Nacho Chen Other Providers: Vick Pickard ; Rodolfo Ordonez ; Farhan George ; Waldemar Moraes ; Isra Sierra ; Diaz Day ; Kelvin Power ; Vivien Morales ; Eva Nieto ; Heidi Marshall ; Nestor Perdomo
[2021-08-18] MEDS: HYDROmorphone HCL 2 MG TAB PO PRN (19:14)
[2021-08-22] MEDS ORDERED: WARFARIN SOD 5 MG TAB PO SCH (16:30)
== END 2021-08-18 19:45 | disposition short-term general hospital (02) | DRG 287 ==
LOC: ED 15:42 → EDINP 20:46 → INTOOBSV 20:46 → EDINP 23:25
DX: Z88.8 Allergy status to other drugs, medicaments and biological substances; Z96.651 Presence of right artificial knee joint; I25.110 Atherosclerotic heart disease of native coronary artery with unstable angina pectoris; Z86.718 Personal history of other venous thrombosis and embolism; Z79.899 Other long term (current) drug therapy; E11.42 Type 2 diabetes mellitus with diabetic polyneuropathy; Z88.5 Allergy status to narcotic agent; N40.0 Benign prostatic hyperplasia without lower urinary tract symptoms; M10.9 Gout, unspecified; E11.21 Type 2 diabetes mellitus with diabetic nephropathy; E11.319 Type 2 diabetes mellitus with unspecified diabetic retinopathy without macular edema; G35 Multiple sclerosis; Z79.84 Long term (current) use of oral hypoglycemic drugs; K21.9 Gastro-esophageal reflux disease without esophagitis; I12.9 Hypertensive chronic kidney disease with stage 1 through stage 4 chronic kidney disease, or unspecified chronic kidney disease; Z79.82 Long term (current) use of aspirin; Z79.4 Long term (current) use of insulin; N18.32 Chronic kidney disease, stage 3b; M35.3 Polymyalgia rheumatica; Z79.01 Long term (current) use of anticoagulants

== ENCOUNTER 2022-07-24 21:12 | Inpatient (IN) ==
[2022-07-24 21:43] LABS: Basophils # (auto) 0.03 K/uL (0-0.2); Basophils % (auto) 0.3 %; Eosinophils # (auto) 0.01 K/uL (0-0.50); Eosinophils % (auto) 0.1 %; Hematocrit (blood only) 44.9 % (40.1-51.0); Immature Granulocytes # (auto) 0.12 K/uL (0.00-0.02); Immature Granulocytes % (auto) 1.1 %; Lymphocytes # (auto) 0.69 K/uL (1.2-3.4); Lymphocytes % (auto) 6.1 %; Mean Corpuscular Hemoglobin 31.1 pg (25.0-34.0); Mean Corpuscular Hgb Conc 33.4 g/dL (32.0-36.0); Mean Platelet Volume 10.2 fL (9.4-12.4); Monocytes # (auto) 0.88 K/uL (0.24-0.82); Monocytes % (auto) 7.8 %; Neutrophils # (auto) 9.62 K/uL (1.4-6.5); Neutrophils % (auto) 84.6 %; Platelet Count 253 K/uL (130-400); RDW Coefficient of Variation 13.7 % (11.5-14.5); RDW Standard Deviation 46.6 fL (36.4-46.3); Red Blood Count 4.83 M/uL (4.63-6.08); White Blood Count 11.35 K/ul (4.8-10.8)
[2022-07-24] MEDS ORDERED: ALBUT/IPRATROP 3MG/0.5MG NEB 3 ML VIAL NEB STA (21:50)
[2022-07-24] MEDS ORDERED: SODIUM CHLORIDE 0.9% 500 ML IV ONE ×2 (21:50→22:40)
[2022-07-24] MEDS ORDERED: methylPREDNISolone 125 MG/2 ML VIAL IV STA (21:50)
[2022-07-24] MEDS ORDERED: guaiFENesin 600 MG TABCR PO STA (21:50)
[2022-07-24 21:52] LABS: INR 1.2 (0.9-1.1); Partial Thromboplastin Ratio 1.3; Partial Thromboplastin Time 35.3 Seconds (21.0-31.0); Prothrombin Time 13.1 Seconds (9.0-12.0)
[2022-07-24 22:11] LABS: Albumin Globulin Ratio 1.3 (0.9-2); Albumin Level 4.4 gm/dl (3.4-5.0); BUN Creatinine Ratio 17.8 (10-20); Bilirubin,Total 0.4 mg/dl (0.2-1.0); Calcium 9.1 mg/dl (8.5-10.1); Est GFR (African American) 37.1 ml/min; Globulin 3.4 gm/dl (2.5-4.0); Potassium 4.5 mmol/L (3.5-5.1); Total Protein 7.8 gm/dl (6.0-8.3); Troponin I High Sensitivity 918.7 pg/ml (0-20)
[2022-07-24 22:17] LABS: Influenza B virus by PCR Negative (Neg); RSV by PCR Negative (Neg); SARS CoV2 RNA(COVID-19) Ceph NEGATIVE (Negative)
[2022-07-24] MEDS ORDERED: DKA GOAL RANGE 150-250 mg/dl ONE (22:40)
[2022-07-24 22:44] LABS: Influenza A virus by PCR Positive (Neg)
[2022-07-24] MEDS ORDERED: INSULIN REGULAR 250 UNITS in SODIUM CHLORIDE 0.9% 247.5 ML IV SCH (22:45)
[2022-07-24 22:55] LABS: Base Excess VBG -8.2 mEq/L; HCO3 VBG 17 mmol/L; Oxygen Saturation VBG 87.4 %; PCO2 VBG 34 mmHg (38-50); PO2 VBG 56 mmHg; pH VBG 7.31 (7.36-7.41)
[2022-07-24] MEDS ORDERED: INSULIN HUMAN REGULAR BOLUS IV ONE (23:00)
[2022-07-24] MEDS ORDERED: OSELTAMIVIR PHOSPHATE 75 MG CAP PO STA (23:01)
[2022-07-24] MEDS: NSS + 20MEQ KCL 20 MEQ/1,000 ML BAG IV SCH (23:28)
--- NOTE | 2022-07-25 00:20 | Emergency Department Note ---
Impression & Plan Influenza A, DKA (diabetic ketoacidosis), CKD (chronic kidney disease), Elevated troponin ED Provider Note NAME: DAT QUIÑONES AGE: 71 SEX: M ARRIVES VIA: Walk-In INFORMANT: Patient ED PROVIDER(S): Michele Thompson MD CHIEF COMPLAINT: Cough, congestion, sob chest pain. PLAN: Disposition: Admit MEDICAL DECISION MAKING: The patient is a pleasant 71-year-old gentleman with a past medical history of CAD, status post CABG, hypertension, hyperlipidemia, CKD, insulin-dependent type 2 diabetes, asthma who presents to the emergency department accompanied by his daughter for evaluation of worsening cough, congestion with chest tightness and shortness of breath that evolved since last Sunday when he reports he did receive his COVID booster. He reports his also had similar symptoms. He denies nausea, vomiting or diarrhea. On arrival the patient is uncomfortable but no acute distress, afebrile with heart in the 100s and blood pressure 200s/90s and vital signs otherwise stable. He appears clinically dry. He has mild wheezes of bilateral lung hu and lungs are otherwise clear. Abdomen is benign. EKG without overt acute ischemia. Chest x-ray negative for acute cardiopulmonary process per my preliminary review WBC 11.3K nonspecific. H/H and platelets within normal limits. Chemistry demonstrates anion gap metabolic acidosis with anion gap of 22 and bicarbonate of 13 with glucose of 660. Sodium 131 however corrects to 144 in setting of his hyperglycemia. Serum osmolality is 319 consistent with the patient's clinically dry appearance. VBG with pH of 7.31 however with component of respiratory compensation with PCO2 of 34. Since high-sensitivity troponin was 918, nonspecific and in setting of the patient's CKD and DKA. Influenza A PCR was positive. COVID-19 and RSV PCR's were negative. CT of the chest and abdomen pelvis were performed without contrast and per preliminary stat read report were negative for acute abnormalities. Upon reevaluation the patient was feeling some improvement following treatment initially with steroids, DuoNeb, guaifenesin as well as IV fluid hydration. Insulin drip was also initiated as well as maintenance fluid with potassium. Tamiflu also ordered. Patient agrees with plan for admission. Case was discussed with Dr. Leggett, [facility] hospitalist, who will evaluate the patient for admission. Triage Nursing notes reviewed and agree them. Prior medical records reviewed Vital Signs: reviewed Differential diagnosis: Reactive airway disease, pneumonia, pneumothorax, COPD, CHF, infections, cardiac ischemia, pulmonary embolism, musculoskeletal, gastrointestinal, as well as other pathologies. ER treatment provided: See below. Diagnostics interpreted by me: ECG: Sinus tachycardia, 111 bpm, no ectopy, ST and T wave abnormality, no overt ST elevation, QTC 410, cures 92. Cardiac Monitoring: An order for continuous cardiac monitoring was placed and demonstrated Sinus tachycardia, 111 bpm, no ectopy. Laboratory studies: See below Imaging studies: See below Consultation(s): Dr. Leggett, [facility] hospitalist HPI: The patient is a pleasant 71-year-old gentleman with a past medical history of CAD, status post CABG, hypertension, hyperlipidemia, CKD, insulin-dependent type 2 diabetes, asthma who presents to the emergency department accompanied by his daughter for evaluation of worsening cough, congestion with chest tightness and shortness of breath that evolved since last Sunday when he reports he did receive his COVID booster. He reports his also had similar symptoms. He denies nausea, vomiting or diarrhea. ROS: See above HPI for pertinent positives & negatives. A total of 10 systems reviewed and were otherwise negative. VITALS:See Below PHYSICAL EXAMINATION: GENERAL: Awake, alert, uncomfortable-appearing, in no distress HENT: Normocephalic, atraumatic. Oropharynx with dry mucous membranes and ot herwise unremarkable. EYES: Normal conjunctiva. Sclera non-icteric. NECK: Supple. No nuchal rigidity. FROM. No JVD. RESPIRATORY: Mild wheezes of bilateral lung hu and lungs are otherwise clear. CARDIAC: Tachycardic rate, normal rhythm. Extremities warm and well perfused. Pulses equal. ABDOMEN: Soft, non-distended. No tenderness to palpation. No rebound or guarding. No masses. RECTAL: Deferred. MUSCULOSKELETAL: Chest examination reveals no tenderness. The back is symmetrical on inspection without obvious abnormality. There is no CVA tenderness to palpation. No joint edema. LOWER EXTREMITIES: Calves are equal size bilaterally and non-tender. No edema. No discoloration. NEURO: Normal sensorium. No sensory or motor deficits noted. SKIN: No rash or jaundice noted. ED COURSE: Critical Care: I have personally spent greater than 95 minutes of critical care time in the direct management of this patient. This includes bedside care, interpretation of diagnostic studies, and testing, discussion with consultants, patient, and family members, and other required patient management activities. This 95 minutes is in excess of all separately billable procedures. Michele Thompson MD Past Med/Surg History Medical History Anxiety Asthma in remission BPH (benign prostatic hyperplasia) BPH loc w urin obs/LUTS Broken rib r/t old sports injury, shows up on CXRs as abnormal, but was very remote (in college) and does not cause any pain. Cataract Chronic kidney disease Stage III. follows w/ dr. bowens CKD (chronic kidney disease), stage III Deep vein thrombosis hx mult DVT to BLE; on coumadin; most recent - believes r/t surgeries (denies clotting disorder) Diabetes mellitus, type 2 IDDM DM type 2 (diabetes mellitus, type 2) Extrapyramidal disease and abnormal movement disorder GERD (gastroesophageal reflux disease) GERD (gastroesophageal reflux disease) History of kidney stones Hyperlipidemia Hyperlipidemia Hypertension Hypertension Kidney stone Left arm pain Multiple sclerosis Multiple sclerosis follows w/ dr. Galloway, has not had symptoms beyond muscle twitches since the early Osteoarthritis Polyarthritis Precordial chest pain Prostate cancer screening SOB (shortness of breath) Supratherapeutic INR Thyroid nodule Surgical History H/O arthroscopic knee surgery History of appendectomy History of arthroscopy of left knee History of cardiac cath 15 years ago - CP led to cath - [place] - no stents/angioplasty, ruled indigestion - does not follow w/ cardio History of carpal tunnel release BL History of carpal tunnel surgery History of coronary artery bypass graft CABG X 5 ON 08/19/2021 ([id number], Ao-ramus-OM, Ao-PDA W/ rev SVG) History of cystoscopy History of knee joint replacement x 2 rt knee History of repair of rotator cuff BL History of surgery LLE - hardware present History of tooth extraction History of total right knee replacement S/P appendectomy S/P rotator cuff repair Status post biopsy of thyroid gland benign Family History Daughter History of anesthesia reaction PONV Grandfather (Paternal) Family history of diabetes mellitus Mother Family history of diabetes mellitus Father Family history of diabetes mellitus Social History Smoking Status: Never smoker Tobacco Type: Smokeless Tobacco (Dip or Chew) Second Hand Exposure: No; Hx Alcohol Use: No Hx Substance Use: No Preferred Language: Haitian Communication Ability: Effective Glue Specialty Supervisor Required: No Beliefs That Will Affect Care: None marital status: Current Living Situation: Spouse current occupational status: retired current occupation: Retired Feels Safe at Home: Yes Assistive Devices: Cane, Walker and Wheelchair Allergies Allergies Allergy/AdvReac Type Severity Reaction Status Date / Time morphine AdvReac Severe Vomiting Verified 07/25/22 00:16 rosuvastatin [From Crestor] AdvReac Intermediate Cramping Verified 07/25/22 00:16 of the Muscles Home Meds Home Medications Medication Instructions Recorded Confirmed allopurinol 100 mg tablet 200 mg PO DAILY 07/25/22 07/25/22 aspirin 81 mg chewable tablet 81 mg PO DAILY 07/25/22 07/25/22 atorvastatin 80 mg tablet 80 mg PO QAM 07/25/22 07/25/22 empagliflozin 25 mg tablet 25 mg PO DAILY 07/25/22 07/25/22 (Jardiance) ezetimibe 10 mg tablet 10 mg PO QAM 07/25/22 07/25/22 insulin glargine 100 unit/mL (3 42 unit subcut BID 07/25/22 07/25/22 mL) subcutaneous pen (Basaglar KwikPen U-100 Insulin) lisinopril 5 mg tablet 2.5 mg PO QAM 07/25/22 07/25/22 metformin 500 mg tablet,extended 1,000 mg PO QAM 07/25/22 07/25/22 release 24 hr metoprolol tartrate 50 mg tablet 50 mg PO BID 07/25/22 07/25/22 rivaroxaban 20 mg tablet (Xarelto) 20 mg PO DAILY 07/25/22 07/25/22 Results & Data (ED) Vital Signs Vital Signs - 24 hr 07/24/22 21:16 07/24/22 22:04 07/24/22 22:04 Temperature 36.7 C Temperature Source Temporal Artery Scan Pulse Rate 121 H Pulse Rate [Right Finger] Pulse Rhythm [Right Finger] Respiratory Rate 18 Respiratory Effort / Characteristics Non-Labored Spontaneous Respiratory Depth Normal Respiratory Pattern Blood Pressure 208/91 H Blood Pressure [Right Arm] Blood Pressure Mean 130 Blood Pressure Mean [Right Arm] Blood Pressure Position Sitting Pulse Oximetry 97 Oxygen Delivery Method Room Air Room Air Room Air Sepsis Recent Fever Within 48 Hours No Sepsis New/Unexplained Change in Mental Status No Sepsis Action Taken by Nursing No Action Required 07/24/22 23:07 07/25/22 01:00 Temperature Temperature Source Pulse Rate Pulse Rate [Right Finger] 113 H 109 H Pulse Rhythm [Right Finger] Regular Respiratory Rate 18 16 Respiratory Effort / Characteristics Non-Labored Spontaneous Respiratory Depth Normal Respiratory Pattern Regular Blood Pressure Blood Pressure [Right Arm] 179/82 H 147/78 H Blood Pressure Mean Blood Pressure Mean [Right Arm] 114 101 Blood Pressure Position Pulse Oximetry 96 95 Oxygen Delivery Method Room Air Room Air Sepsis Recent Fever Within 48 Hours Sepsis New/Unexplained Change in Mental Status Sepsis Action Taken by Nursing Laboratory Data Attestation: I reviewed the patient's lab results. Result diagrams: 07/24/22 21:28 07/24/22 21:28 Lab Results 07/24/22 07/24/22 07/24/22 Range/Units 21:28 21:28 21:28 WBC 11.35 H (4.8-10.8) K/ul RBC 4.83 (4.63-6.08) M/uL Hgb 15.0 (14.0-18.0) g/dl Hct 44.9 (40.1-51.0) % MCV 93.0 (80.0-100.0) fL MCH 31.1 (25.0-34.0) pg MCHC 33.4 (32.0-36.0) g/dL RDW Std Deviation 46.6 H (36.4-46.3) fL RDW Coeff of Leo 13.7 (11.5-14.5) % Plt Count 253 (130-400) K/uL MPV 10.2 (9.4-12.4) fL Immature Gran % (Auto) 1.1 % Neut % (Auto) 84.6 % Lymph % (Auto) 6.1 % Orange % (Auto) 7.8 % Eos % (Auto) 0.1 % Baso % (Auto) 0.3 % Neut # (Auto) 9.62 H (1.4-6.5) K/uL Lymph # (Auto) 0.69 L (1.2-3.4) K/uL Orange # (Auto) 0.88 H (0.24-0.82) K/uL Eos # (Auto) 0.01 (0-0.50) K/uL Baso # (Auto) 0.03 (0-0.2) K/uL Immature Gran # (Auto) 0.12 H (0.00-0.02) K/uL PT 13.1 H (9.0-12.0) Seconds INR 1.2 H (0.9-1.1) APTT 35.3 H (21.0-31.0) Seconds PTT Ratio 1.3 VBG pH (7.36-7.41) VBG pCO2 (38-50) mmHg VBG pO2 mmHg VBG HCO3 mmol/L VBG O2 Saturation % VBG Base Excess mEq/L Sodium 131 L (136-145) mmol/L Potassium 4.5 (3.5-5.1) mmol/L Chloride 96 L (98-107) mmol/L Carbon Dioxide 13 L (21-32) mmol/L Anion Gap 22 H (3-11) BUN 36 H (6-23) mg/dl Creatinine 2.02 H (0.6-1.4) mg/dl Est Cr Clr Drug Dosing 34.0 ml/min Est GFR ( Amer) 37.1 ml/min Est GFR (Non-Af Amer) 32.0 ml/min BUN/Creatinine Ratio 17.8 (10-20) Glucose 661 H* (70-99(Fasting)) mg/dl POC Glucose (70-99) mg/dl Osmolality (280-300) mOsm/kg Calcium 9.1 (8.5-10.1) mg/dl Magnesium (1.7-2.4) mg/dl Total Bilirubin 0.4 (0.2-1.0) mg/dl AST 21 (13-39) U/L ALT 30 (7-52) U/L Alkaline Phosphatase 76 (34-104) U/L Troponin I High Sens 918.7 H* (0-20) pg/ml Total Protein 7.8 (6.0-8.3) gm/dl Albumin 4.4 (3.4-5.0) gm/dl Globulin 3.4 (2.5-4.0) gm/dl Albumin/Globulin Ratio 1.3 (0.9-2) SARS-CoV-2 (PCR) (Negative) Influenza Type A (PCR) (Neg) Influenza Type B (PCR) (Neg) RSV (RT-PCR) (Neg) 07/24/22 07/24/22 07/24/22 Range/Units 21:28 21:28 21:28 WBC (4.8-10.8) K/ul RBC (4.63-6.08) M/uL Hgb (14.0-18.0) g/dl Hct (40.1-51.0) % MCV (80.0-100.0) fL MCH (25.0-34.0) pg MCHC (32.0-36.0) g/dL RDW Std Deviation (36.4-46.3) fL RDW Coeff of Leo (11.5-14.5) % Plt Count (130-400) K/uL MPV (9.4-12.4) fL Immature Gran % (Auto) % Neut % (Auto) % Lymph % (Auto) % Orange % (Auto) % Eos % (Auto) % Baso % (Auto) % Neut # (Auto) (1.4-6.5) K/uL Lymph # (Auto) (1.2-3.4) K/uL Orange # (Auto) (0.24-0.82) K/uL Eos # (Auto) (0-0.50) K/uL Baso # (Auto) (0-0.2) K/uL Immature Gran # (Auto) (0.00-0.02) K/uL PT (9.0-12.0) Seconds INR (0.9-1.1) APTT (21.0-31.0) Seconds PTT Ratio VBG pH (7.36-7.41) VBG pCO2 (38-50) mmHg VBG pO2 mmHg VBG HCO3 mmol/L VBG O2 Saturation % VBG Base Excess mEq/L Sodium (136-145) mmol/L Potassium (3.5-5.1) mmol/L Chloride (98-107) mmol/L Carbon Dioxide (21-32) mmol/L Anion Gap (3-11) BUN (6-23) mg/dl Creatinine (0.6-1.4) mg/dl Est Cr Clr Drug Dosing ml/min Est GFR ( Amer) ml/min Est GFR (Non-Af Amer) ml/min BUN/Creatinine Ratio (10-20) Glucose (70-99(Fasting)) mg/dl POC Glucose (70-99) mg/dl Osmolality 319 H (280-300) mOsm/kg Calcium (8.5-10.1) mg/dl Magnesium 2.0 (1.7-2.4) mg/dl Total Bilirubin (0.2-1.0) mg/dl AST (13-39) U/L ALT (7-52) U/L Alkaline Phosphatase (34-104) U/L Troponin I High Sens (0-20) pg/ml Total Protein (6.0-8.3) gm/dl Albumin (3.4-5.0) gm/dl Globulin (2.5-4.0) gm/dl Albumin/Globulin Ratio (0.9-2) SARS-CoV-2 (PCR) NEGATIVE (Negative) Influenza Type A (PCR) Positive A* (Neg) Influenza Type B (PCR) Negative (Neg) RSV (RT-PCR) Negative (Neg) 07/24/22 07/24/22 07/25/22 Range/Units 22:46 23:13 00:22 WBC (4.8-10.8) K/ul RBC (4.63-6.08) M/uL Hgb (14.0-18.0) g/dl Hct (40.1-51.0) % MCV (80.0-100.0) fL MCH (25.0-34.0) pg MCHC (32.0-36.0) g/dL RDW Std Deviation (36.4-46.3) fL RDW Coeff of Leo (11.5-14.5) % Plt Count (130-400) K/uL MPV (9.4-12.4) fL Immature Gran % (Auto) % Neut % (Auto) % Lymph % (Auto) % Orange % (Auto) % Eos % (Auto) % Baso % (Auto) % Neut # (Auto) (1.4-6.5) K/uL Lymph # (Auto) (1.2-3.4) K/uL Orange # (Auto) (0.24-0.82) K/uL Eos # (Auto) (0-0.50) K/uL Baso # (Auto) (0-0.2) K/uL Immature Gran # (Auto) (0.00-0.02) K/uL PT (9.0-12.0) Seconds INR (0.9-1.1) APTT (21.0-31.0) Seconds PTT Ratio VBG pH 7.31 L (7.36-7.41) VBG pCO2 34 L (38-50) mmHg VBG pO2 56 mmHg VBG HCO3 17 mmol/L VBG O2 Saturation 87.4 % VBG Base Excess -8.2 mEq/L Sodium (136-145) mmol/L Potassium (3.5-5.1) mmol/L Chloride (98-107) mmol/L Carbon Dioxide (21-32) mmol/L Anion Gap (3-11) BUN (6-23) mg/dl Creatinine (0.6-1.4) mg/dl Est Cr Clr Drug Dosing ml/min Est GFR ( Amer) ml/min Est GFR (Non-Af Amer) ml/min BUN/Creatinine Ratio (10-20) Glucose (70-99(Fasting)) mg/dl POC Glucose 511 H* 449 H* (70-99) mg/dl Osmolality (280-300) mOsm/kg Calcium (8.5-10.1) mg/dl Magnesium (1.7-2.4) mg/dl Total Bilirubin (0.2-1.0) mg/dl AST (13-39) U/L ALT (7-52) U/L Alkaline Phosphatase (34-104) U/L Troponin I High Sens (0-20) pg/ml Total Protein (6.0-8.3) gm/dl Albumin (3.4-5.0) gm/dl Globulin (2.5-4.0) gm/dl Albumin/Globulin Ratio (0.9-2) SARS-CoV-2 (PCR) (Negative) Influenza Type A (PCR) (Neg) Influenza Type B (PCR) (Neg) RSV (RT-PCR) (Neg) 07/25/22 Range/Units 01:35 WBC (4.8-10.8) K/ul RBC (4.63-6.08) M/uL Hgb (14.0-18.0) g/dl Hct (40.1-51.0) % MCV (80.0-100.0) fL MCH (25.0-34.0) pg MCHC (32.0-36.0) g/dL RDW Std Deviation (36.4-46.3) fL RDW Coeff of Leo (11.5-14.5) % Plt Count (130-400) K/uL MPV (9.4-12.4) fL Immature Gran % (Auto) % Neut % (Auto) % Lymph % (Auto) % Orange % (Auto) % Eos % (Auto) % Baso % (Auto) % Neut # (Auto) (1.4-6.5) K/uL Lymph # (Auto) (1.2-3.4) K/uL Orange # (Auto) (0.24-0.82) K/uL Eos # (Auto) (0-0.50) K/uL Baso # (Auto) (0-0.2) K/uL Immature Gran # (Auto) (0.00-0.02) K/uL PT (9.0-12.0) Seconds INR (0.9-1.1) APTT (21.0-31.0) Seconds PTT Ratio VBG pH (7.36-7.41) VBG pCO2 (38-50) mmHg VBG pO2 mmHg VBG HCO3 mmol/L VBG O2 Saturation % VBG Base Excess mEq/L Sodium (136-145) mmol/L Potassium (3.5-5.1) mmol/L Chloride (98-107) mmol/L Carbon Dioxide (21-32) mmol/L Anion Gap (3-11) BUN (6-23) mg/dl Creatinine (0.6-1.4) mg/dl Est Cr Clr Drug Dosing ml/min Est GFR ( Amer) ml/min Est GFR (Non-Af Amer) ml/min BUN/Creatinine Ratio (10-20) Glucose (70-99(Fasting)) mg/dl POC Glucose 391 H* (70-99) mg/dl Osmolality (280-300) mOsm/kg Calcium (8.5-10.1) mg/dl Magnesium (1.7-2.4) mg/dl Total Bilirubin (0.2-1.0) mg/dl AST (13-39) U/L ALT (7-52) U/L Alkaline Phosphatase (34-104) U/L Troponin I High Sens (0-20) pg/ml Total Protein (6.0-8.3) gm/dl Albumin (3.4-5.0) gm/dl Globulin (2.5-4.0) gm/dl Albumin/Globulin Ratio (0.9-2) SARS-CoV-2 (PCR) (Negative) Influenza Type A (PCR) (Neg) Influenza Type B (PCR) (Neg) RSV (RT-PCR) (Neg) Administered Medications Insulin Human Regular 250 (units/ Sodium Chloride) 250 mls @ 8.9 mls/hr IV .Q24H JOYCE; Protocol Stop: 08/23/22 22:44 Last Titration: 07/25/22 01:39 Dose: 12.8 units/hr, 12.8 mls/hr Documented By: SAMIRA Co-signed By: VENESSA Titration: 07/25/22 00:31 Dose: 10.7 units/hr, 10.7 mls/hr Documented By: SAMIRA Co-signed By: VENESSA Admin: 07/24/22 23:20 Dose: 8.9 units/hr, 8.9 mls/hr Documented By: MOLINA Co-signed By: SAMIRA Potassium Chloride/Sodium Chloride (Normal Saline W/20 Meq Kcl) 20 meq in 1,000 mls @ 250 mls/hr IV .Q4H JOYCE; Protocol Stop: 08/23/22 22:44 Last Admin: 07/24/22 23:28 Dose: 250 mls/hr Documented By: MOLINA Heparin Sodium/Dextrose (Heparin Sodium/Dextrose) 25,000 units in 500 mls @ 26 mls/hr IV .[id number] JOYCE; Protocol Stop: 08/24/22 00:59 Last Admin: 07/25/22 01:26 Dose: 1,300 units/hr, 26 mls/hr Documented By: SAMIRA Co-signed By: SHAUNA Discontinued Medications Albuterol (Albut/Ipratrop 3mg/0.5mg Neb 3 Ml Vial) 3 ml NEB NOW STA; Protocol Stop: 07/24/22 21:51 Last Admin: 01/02/23 22:12 Dose: 3 ml Documented By: SAMIRA Guaifenesin (Guaifenesin 600 Mg Tabcr) 600 mg PO NOW STA Stop: 07/24/22 21:51 Last Admin: 07/24/22 22:12 Dose: 600 mg Documented By: SAMIRA Sodium Chloride (Nss) 500 mls @ 999 mls/hr IV .Q31M ONE Stop: 07/24/22 22:20 Last Infusion: 07/24/22 23:38 Dose: 0 mls/hr Documented By: Admin: 07/24/22 22:12 Dose: 999 mls/hr Documented By: SAMIRA Sodium Chloride (Nss) 500 mls @ 999 mls/hr IV .Q31M ONE Stop: 07/24/22 23:10 Last Admin: 07/24/22 23:27 Dose: 999 mls/hr Documented By: MOLINA Insulin Human Regular 8.9 (units/ Syringe) 8.9 mls @ 0 mls/min IV 2300 ONE Stop: 07/24/22 23:01 Last Admin: 07/24/22 23:19 Dose: 999 mls/min Documented By: MOLINA Co-signed By: SAMIRA Methylprednisolone (Methylprednisolone 125 Mg/2 Ml Vial) 125 mg IV NOW STA Stop: 07/24/22 21:51 Last Admin: 07/24/22 22:12 Dose: 125 mg Documented By: SAMIRA Oseltamivir Phosphate (Oseltamivir Phosphate 75 Mg Cap) 75 mg PO NOW STA; Protocol Stop: 07/24/22 23:02 Last Admin: 07/24/22 23:28 Dose: 75 mg Documented By: MOLINA Imaging Data Radiologist's Impression: STATRAD Preliminary Findings Only See Final Report For Complete Findings CT CHEST Without Contrast: Comparison is made to a prior examination dated 08/06/19. No acute pathology is identified in the thorax. The patient is status post sternotomy. There is extensive coronary vascular calcification. There are degenerative changes of the thoracolumbar spine. Radiologist: Rehan Perea MD Study ready at 23:11 and initial results transmitted at 23:47 Preliminary Findings Only See Final Report For Complete Findings CT ABDOMEN & PELVIS Without Contrast: Comparison is made to a prior examination dated 01/29/22. No acute pathology is identified in the abdomen or pelvis. No nephrolithiasis or urolithiasis is seen. No hydronephrosis. Urinary bladder is within normal limits. There is extensive atherosclerotic disease of the aorta. There are degenerative changes of the thoracolumbar spine. Radiologist: Rehan Perea MD Study ready at 23:10 and initial results transmitted at 23:46 Discharge Plan Visit Data Chief Complaint: Cardiac Assessment Stated Complaint: BURNING CHEST PAIN/RADIATES INTO [facility]MPIT ED Provider: Michele Thompson Discharge Problem: Influenza A, DKA (diabetic ketoacidosis), CKD (chronic kidney disease), Elevated troponin Forms Stand Alone Forms: My [facility] [employer] Knowledge Prescriptions Prescriptions: No Action atorvastatin 80 mg tablet 80 mg PO QAM allopurinol 100 mg tablet 200 mg PO DAILY metoprolol tartrate 50 mg tablet 50 mg PO BID aspirin [Baby Aspirin] 81 mg Tablet,Chewable 81 mg PO DAILY lisinopril 5 mg tablet 2.5 mg PO QAM metformin 500 mg tablet extended release 24 hr 1,000 mg PO QAM ezetimibe 10 mg tablet 10 mg PO QAM insulin glargine [Basaglar KwikPen U-100 Insulin] 100 unit/mL (3 mL) Insulin Pen 42 unit SUBCUT BID Rx Instructions: AM & BEFORE HS Xarelto 20 mg tablet 20 mg PO DAILY Jardiance 25 mg tablet 25 mg PO DAILY Referrals Referrals: Nacho Chen MD [Primary Care Provider] -
[2022-07-25] MEDS: STAT IV Infusion **Titration per Protocol STA ×2 (00:30→08:06)
[2022-07-25] MEDS ORDERED: Heparin IV Adult Wt-Based Standard *NO* Bolus Protocol IV SCH (00:53)
[2022-07-25] MEDS: HEPARIN SODIUM/DEXTROSE 25,000 UNITS/500 ML BAG IV SCH (01:26)
[2022-07-25] MEDS ORDERED: DKA GOAL RANGE 150-250 mg/dl ONE (01:57)
[2022-07-25] MEDS ORDERED: PHARMACY GLYCEMIC MGMT CONSULT PRN (01:57)
[2022-07-25] MEDS ORDERED: NORMOSOL-R 1,000 ML IV SCH (02:00)
[2022-07-25] MEDS ORDERED: PENDING 1/2NSS+20mEq KCL IVF SCH (02:00)
[2022-07-25] MEDS ORDERED: POLYETHYLENE (MIRALAX) 17 GM PACK PO PRN (02:01)
[2022-07-25] MEDS ORDERED: ONDANSETRON INJ 2 MG/ML 2 ML VIAL IV PRN (02:01)
[2022-07-25] MEDS ORDERED: ALUMINUM/MAGNESIUM SUSP 30 ML UDC PO PRN (02:01)
[2022-07-25] MEDS ORDERED: MAGNESIUM HYDROXIDE SUSP 30 ML UDC PO PRN (02:01)
[2022-07-25] MEDS ORDERED: NITROGLYCERIN SL 0.4 MG/TAB TAB SL PRN (02:10)
--- NOTE | 2022-07-25 02:24 | History & Physical Report ---
Date of Service July 25, 2022 Assessment & Plan (1) DKA (diabetic ketoacidosis): Plan DKA Pseudohyponatremia: Likely secondary to hyperglycemia, monitor labs Patient comes in with few days of illness, admitting blood glucose of 661 with increased anion gap and acidosis and increased plasma osmolality with some electrolytes abnormality. Blood culture, DKA insulin drip protocol, n.p.o., IV fluids, glycemic pharmacy. Influenza A: Isolation precaution, Tamiflu, doxy for possible bronchitis Elevated troponin: Likely NSTEMI given patient's cardiac history and typical chest pain, EKG with some T wave inversion in inferior leads, will initiate heparin drip (hold xarelto), cardiology consult, trend troponin, telemetry monitoring, EKG and echo in AM. Nitropaste. Other chronic medical conditions: Resume home meds as able Heparin drip DNR/DNI Admitting imagings are as below, follow final reads. CT CHEST Without Contrast: Comparison is made to a prior examination dated 08/06/19. No acute pathology is identified in the thorax. The patient is status post sternotomy. There is extensive coronary vascular calcification. There are degenerative changes of the thoracolumbar spine. CT ABDOMEN & PELVIS Without Contrast: Comparison is made to a prior examination dated 01/29/22. No acute pathology is identified in the abdomen or pelvis. No nephrolithiasis or urolithiasis is seen. No hydronephrosis. Urinary bladder is within normal limits. There is extensive atherosclerotic disease of the aorta. There are degenerative changes of the thoracolumbar spine. US VENOUS BILATERAL LOWER EXTREMITIES: Comparison is made to prior venous Doppler ultrasound on 08/06/2019. No deep venous thrombosis identified in either lower extremity. History of Present Illness Chief Complaint: Chest pain Primary Care Provider: Nacho Chen MD 71-year-old male with PMH of T2DM, HTN, CKD stage IIIb, HLD, multinodular goiter, bilateral nonproliferative diabetic retinopathy without macular edema, diabetic peripheral neuropathy, gout, asthma in remission, unstable angina, CAD status post CABG x5 --> 11 months ago per patient, multiple sclerosis, MGUS, PMR presented to our ED 07/25 with complaint of chest pain since 2 days. Patient complained of chest pain/burning across his chest since the morning of July 23 and radiating to his left armpit, was progressively worse reaching up to 9/10 and hence decided to come to the hospital, he has tried ibuprofen and Tylenol without relief, he describes the pain as searing, patient complained of some chest pain at the exam but reports getting better. Patient also complains of having runny nose dizziness and weakness along with cough and greenish-yellow sputum production since July 22, patient diagnosed with influenza A at presentation. Patient also reports occasional palpitation last night, sore bilateral belly secondary to coughing, no acute changes in his bowel or bladder habit, some headache and dizziness the last few days. Patient quit smoking 8 years ago, denies alcohol use, chews tobacco about 2 cans/week, denies recreational drug use. 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 Medications were reviewed with the patient. Plan of care discussed with the patient. Allergies Allergy/AdvReac Type Severity Reaction Status Date / Time morphine AdvReac Severe Vomiting Verified 07/25/22 00:16 rosuvastatin [From Crestor] AdvReac Intermediate Cramping Verified 07/25/22 00:16 of the Muscles Home Medications Medication Instructions Recorded Confirmed Type allopurinol 100 mg tablet 200 mg PO DAILY 07/25/22 07/25/22 History aspirin 81 mg chewable tablet 81 mg PO DAILY 07/25/22 07/25/22 History atorvastatin 80 mg tablet 80 mg PO QAM 07/25/22 07/25/22 History empagliflozin 25 mg tablet 25 mg PO DAILY 07/25/22 07/25/22 History (Jardiance) ezetimibe 10 mg tablet 10 mg PO QAM 07/25/22 07/25/22 History insulin glargine 100 unit/mL (3 42 unit subcut BID 07/25/22 07/25/22 History mL) subcutaneous pen (Basaglar KwikPen U-100 Insulin) lisinopril 5 mg tablet 2.5 mg PO QAM 07/25/22 07/25/22 History metformin 500 mg tablet,extended 1,000 mg PO QAM 07/25/22 07/25/22 History release 24 hr metoprolol tartrate 50 mg tablet 50 mg PO BID 07/25/22 07/25/22 History rivaroxaban 20 mg tablet (Xarelto) 20 mg PO DAILY 07/25/22 07/25/22 History Past Med/Surg History Medical History Anxiety Asthma in remission BPH (benign prostatic hyperplasia) BPH loc w urin obs/LUTS Broken rib r/t old sports injury, shows up on CXRs as abnormal, but was very remote (in college) and does not cause any pain. Cataract Chronic kidney disease Stage III. follows w/ dr. bowens CKD (chronic kidney disease), stage III Deep vein thrombosis hx mult DVT to BLE; on coumadin; most recent - believes r/t surgeries (denies clotting disorder) Diabetes mellitus, type 2 IDDM DM type 2 (diabetes mellitus, type 2) Extrapyramidal disease and abnormal movement disorder GERD (gastroesophageal reflux disease) GERD (gastroesophageal reflux disease) History of kidney stones Hyperlipidemia Hyperlipidemia Hypertension Hypertension Kidney stone Left arm pain Multiple sclerosis Multiple sclerosis follows w/ dr. Galloway, has not had symptoms beyond muscle twitches since the early Osteoarthritis Polyarthritis Precordial chest pain Prostate cancer screening SOB (shortness of breath) Supratherapeutic INR Thyroid nodule Surgical History H/O arthroscopic knee surgery History of appendectomy History of arthroscopy of left knee History of cardiac cath 15 years ago - CP led to cath - [facility] - no stents/angioplasty, ruled indigestion - does not follow w/ cardio History of carpal tunnel release BL History of carpal tunnel surgery History of coronary artery bypass graft CABG X 5 ON 08/19/2021 ([id number], Ao-ramus-OM, Ao-PDA W/ rev SVG) History of cystoscopy History of knee joint replacement x 2 rt knee History of repair of rotator cuff BL History of surgery LLE - hardware present History of tooth extraction History of total right knee replacement S/P appendectomy S/P rotator cuff repair Status post biopsy of thyroid gland benign Family History Daughter History of anesthesia reaction PONV Grandfather (Paternal) Family history of diabetes mellitus Mother Family history of diabetes mellitus Father Family history of diabetes mellitus Social History Smoking Status: Never smoker Tobacco Type: Smokeless Tobacco (Dip or Chew) Second Hand Exposure: No; Hx Alcohol Use: No Hx Substance Use: No Preferred Language: Israeli Communication Ability: Effective Medical Equipment Sales Required: No Beliefs That Will Affect Care: None marital status: Current Living Situation: Spouse current occupational status: retired current occupation: Retired Feels Safe at Home: Yes Assistive Devices: Cane, Walker and Wheelchair Review of Systems Review of Systems: Negative otherwise mentioned in HPI. Physical Exam Physical Exam: GENERAL: Alert and oriented x3. NAD, on RA. HEENT: No pallor, no icterus. Pupils equal, round and reactive to light. Oral mucosa moist. NECK: No JVD, no neck masses. HEART: S1 and S2 heard. tachycardia. No murmur, no gallop. RESPIRATORY SYSTEM: Normal AP diameter. No accessory muscle use. No wheezing, no crackles. ABDOMEN: Soft, bowel sounds present, epigastric tender, no distention. CENTRAL NERVOUS SYSTEM: No facial droop. Speech is clear. Obeys simple commands. Moves extremities. EXTREMITIES: 1+ ble edema, no erythema seen. Results & Data Results & Data ([facility]) Vital Signs (Past 12 Hours) Vital Signs Temp Pulse Pulse Resp BP BP Pulse Ox 07/25/22 01:00 109 H 16 147/78 H 95 07/24/22 23:07 113 H 18 179/82 H 96 07/24/22 22:04 07/24/22 22:04 07/24/22 21:16 36.7 C 121 H 18 208/91 H 97 O2 Del Method 07/25/22 01:00 Room Air 07/24/22 23:07 Room Air 07/24/22 22:04 Room Air 07/24/22 22:04 Room Air 07/24/22 21:16 Room Air
[2022-07-25 02:59] LABS: Appearance Urine Clear (Clear); Bacteria Urine Automated Negative (Negative); Bilirubin Urine Negative (Negative); Blood Urine 2+ (Negative); Color Urine Yellow; Epithelial Cell Urine Auto 0-5 /lpf (0-5); Glucose Urine UA 3+ (Negative); Ketones Urine Negative (Negative); Leukocyte Esterase Urine Negative (Negative); Nitrite Urine Negative (Negative); Protein Urine 1+ (Negative); RBC Urine Automated 0-4 /hpf (0-4); Specific Gravity Urine 1.025 (1.000-1.030); Urobilinogen Urine Negative (Negative); WBC Urine Automated 0 /hpf (0-5)
[2022-07-25 03:19] LABS: BUN Creatinine Ratio 19.2 (10-20); Calcium 8.6 mg/dl (8.5-10.1); Creatinine Clr Calc Pharmacy 39.9 ml/min; Est GFR (Non-African American) 38.9 ml/min; Phosphorus 3.6 mg/dl (2.5-4.9); Potassium 4.1 mmol/L (3.5-5.1)
[2022-07-25] MEDS ORDERED: GLUCOSE 10 TAB/TUBE PO PRN (03:45)
[2022-07-25] MEDS ORDERED: GLUCOSE 40% GEL 15 GM TUBE PO PRN (03:45)
[2022-07-25] MEDS ORDERED: DEXTROSE 50% 50 ML SYRINGE IV PRN (03:45)
[2022-07-25] MEDS ORDERED: GLUCAGON FOR INJ 1 MG VIAL IM PRN (03:45)
[2022-07-25] MEDS ORDERED: CARBOHYDRATES FOR HYPOGLYCEMIA PO PRN (03:45)
[2022-07-25] MEDS: NSS + 20MEQ KCL 20 MEQ/1,000 ML BAG IV SCH (03:50)
[2022-07-25] MEDS: NITROGLYCERIN 2% OINTMENT 30GM TUBE EXT SCH ×4 (03:51→21:15)
[2022-07-25] MEDS ORDERED: DOXYCYCLINE HYCLATE 100 MG in DEXTROSE 5% 100 ML IV SCH (04:00)
[2022-07-25] MEDS ORDERED: PENDING D5 1/2NS+20mEq KCL IVF SCH (04:00)
[2022-07-25] MEDS ORDERED: D5W AND 1/2NSS + 20MEQ KCL 20 MEQ/1,000 ML BAG IV SCH (04:45)
[2022-07-25 06:09] LABS: BUN Creatinine Ratio 20.8 (10-20); Calcium 8.4 mg/dl (8.5-10.1); Creatinine Clr Calc Pharmacy 43.2 ml/min; Est GFR (African American) 49.5 ml/min; Est GFR (Non-African American) 42.7 ml/min; Phosphorus 3.3 mg/dl (2.5-4.9); Potassium 4.6 mmol/L (3.5-5.1)
[2022-07-25 07:14] LABS: Estimated Average Glucose 260 mg/dl; Hemoglobin A1C 10.7 % (4.5-5.6)
--- NOTE | 2022-07-25 07:45 | XRay Report ---
XR chest 1V portable HISTORY: 71 years-old Male Chest pain, nonspecific acute chest pain COMPARISON: Chest CT of same day TECHNIQUE: AP view of the chest FINDINGS: Cardiac silhouette is upper limits of normal in size. Prior median sternotomy and CABG. No pneumothor ax, pleural effusion, airspace consolidation or overt pulmonary edema. Degenerative changes of the sh oulders and spine. A cannulated screw is present within the right humeral head. IMPRESSION: No acute process. ACT 112: Negative or not required by law. The above report was generated using voice recognition software. It may contain grammatical, syntax o r spelling errors. Electronically signed by: Edwin Pate M.D. 07/25/2022 7:44 AM
[2022-07-25 07:52] LABS: Partial Thromboplastin Ratio > 5.1
[2022-07-25] MEDS ORDERED: LANTUS PER UNIT CHARGE SQ STA (07:59)
--- NOTE | 2022-07-25 08:11 | CT Scan Report ---
CT chest diagnostic wo con CLINICAL HISTORY: SOB, chest pain TECHNIQUE: Multidetector row helical CT of the chest was performed. Coronal and sagittal reformations were obtained. Automated dose lowering techniques and/or adjustment according to patient size were u tilized for this exam. Comparison: Comparison is made to CTA chest 06/06/2020 FINDINGS: Lungs and pleura: Normal. Heart and pericardium: Heart size is normal. No pericardial effusion. Vessels: Severe atherosclerotic changes in the aorta and coronary arteries. Mediastinum and fredy: Unremarkable. Chest wall and lower neck: Numerous small thyroid nodules are seen. Subcentimeter axillary lymph node s are noted. Abdomen: Unremarkable. Bones: Degenerative changes in the thoracic spine. Patient is status post median sternotomy. IMPRESSION: 1. Unremarkable evaluation of the chest. 2. Thyromegaly with tiny thyroid nodules, as above. ACT 112: Negative or not required by law. Electronically signed by: Vincent King M.D. 07/25/2022 8:09 AM
--- NOTE | 2022-07-25 08:13 | CT Scan Report ---
ABDOMEN AND PELVIS CT WITHOUT CONTRAST CT DOSE: 1218.50 mGy.cm HISTORY: Acute renal failure acute renal failure TECHNIQUE: Multiaxial CT images of the abdomen and pelvis were performed without contrast. A dose lo wering technique was utilized adhering to the principles of ALARA. COMPARISON STUDY: CT abdomen pelvis 01/29/2022 FINDINGS: Coronary artery calcifications. Clear lung bases. The unenhanced spleen is mildly enlarged, 13.3 cm in length. Mild to moderate pancreatic atrophy. Calcifications of the uncinate process sugge stive of chronic pancreatitis. Unremarkable adrenal glands and liver with mildly contracted gallbladd er. There is mild nonspecific bilateral perinephric stranding. Indeterminate 5 mm hyperdense focus of the inferior pole right kidney is too small to characterize. A proteinaceous or hemorrhagic cyst is a di fferential consideration. No renal or ureteral calculi or hydronephrosis identified. Mild prostamegal y. Mild distention of the urinary bladder. Atherosclerosis of the aorta without aneurysm. No lymphade nopathy identified. No bowel obstruction or bowel wall thickening. Mild colonic fecal retention. The appendix is not visualized. No secondary signs of acute appendicitis. Unremarkable soft tissues. Dege nerative changes of the spine, pelvis and hips. No acute fracture identified. IMPRESSION: 1. No acute intra-abdominal or intrapelvic abnormality. 2. No bowel obstruction or bowel wall thickening. 3. No urolith or hydronephrosis. 4. Prostamegaly with urinary bladder distention. 5. Additional findings as above. ACT 112: Negative or not required by law. The above report was generated using voice recognition software. It may contain grammatical, syntax o r spelling errors. Electronically signed by: Edwin Pate M.D. 07/25/2022 8:12 AM
--- NOTE | 2022-07-25 08:38 | Cardiology Consultation ---
Date of Consultation July 25, 2022 Assessment & Plan (1) Elevated troponin: (2) DKA (diabetic ketoacidosis): (3) CKD (chronic kidney disease): (4) Influenza A: Plan Complex 71-year-old male status post coronary bypass grafting 08/19/2021 after non-ST elevation myocardial infarction multivessel coronary disease discerned. Patient with chronic stable angina pectoris, hypertension hyperlipidemia Now presents with multifactorial poor decline in association with influenza A, diabetic ketoacidosis. He had associated symptoms of searing pain across abdomen and chest worse with cough with focal tenderness currently present. Troponins are elevated reflecting acute illness, and demand based ischemia/non- ST segment elevation myocardial infarction. Currently asymptomatic except tender to palpation and a wheezy cough EKGs without acute ischemic changes. Echocardiogram improved from prior evaluations with normal to hyperdynamic LV function with only subtle apical inferior and septal hypokinesis 1. Elevated troponin/non-ST segment elevation myocardial infarction demand base d: Continue beta-yeyo aspirin. Patient begun on IV heparin with holding of Xarelto would continue at least 24 hours Continue topical nitro paste Treat underlying concerns as doing including acute respiratory infection/influenza/DKA Cardiology will continue to follow History of Present Illness Attending Physician: Oscar Brooks MD History of Present Illness Patient is a 71-year-old male with a history of as per outpatient records 1. Multivessel CAD a. Proximal LAD 80-90% stenosis, Ramus 70-80% stenosis in its midportion, Left circumflex 75% narrowing in its proximal 1/3, RCA moderate irregularities in the proximal mid RCA, PDA 90% stenosis in its distal portion, per cardiac catheterization 08/18/2021 b. S/p CABG x 5([id number],Ao-ramus-OM, Ao-PDA with reversed saphenous vein), 08/19/2021 at [facility] [place] 2. Hypertension 3. Hyperlipidemia 4. Type 2 diabetes with polyneuropathy, retinopathy, and nephropathy, stage IIIB 5. Recurrent DVT on chronic anticoagulation- Xarelto 6. Multiple sclerosis 7. MGUS 8. Polymyalgia rheumatica with recent pulse of prednisone discontinued several weeks prior Patient presents this admission noting worsening cough times several days with increasing shortness of breath abdominal and chest pressure discomfort. He began developing searing descents comfort across his chest with cough radiating to his left shoulder and arm. He eventually succumbed to family urging and presented to ER for evaluation Notes transient fever and night sweats 3 days prior to admission. Overall functional capacity has been gradually improving since coronary bypass surgery. Diffuse arthralgias have been limiting but was able to perform activities during hunting season with course of prednisone therapy Appetites been good with increased dietary intake over holidays. Has not been following sugars closely Weight up a few pounds no signs or symptoms of volume overload though with mild to trace lower extremity edema per patient No bleeding difficulties with patient on chronic anticoagulation with Xarelto Evaluation as noted in ER last night with symptoms consistent with multifactorial presentation including marked elevation in glucose and acute respiratory infection with with positive testing for influenza. Cardiac enzymes are elevated though no acute changes on EKG Currently patient more comfortable since admission. Still with wheezy cough with minimal inspiration. No further chest pain or pleuritic discomfort. Blood sugars trending towards improvement Allergies Allergy/AdvReac Type Severity Reaction Status Date / Time morphine AdvReac Severe Vomiting Verified 07/25/22 00:16 rosuvastatin [From Crestor] AdvReac Intermediate Cramping Verified 07/25/22 00:16 of the Muscles Home Medications Medication Instructions Recorded Confirmed Type allopurinol 100 mg tablet 200 mg PO DAILY 07/25/22 07/25/22 History aspirin 81 mg chewable tablet 81 mg PO DAILY 07/25/22 07/25/22 History atorvastatin 80 mg tablet 80 mg PO QAM 07/25/22 07/25/22 History empagliflozin 25 mg tablet 25 mg PO DAILY 07/25/22 07/25/22 History (Jardiance) ezetimibe 10 mg tablet 10 mg PO QAM 07/25/22 07/25/22 History insulin glargine 100 unit/mL (3 42 unit subcut BID 07/25/22 07/25/22 History mL) subcutaneous pen (Basaglar KwikPen U-100 Insulin) lisinopril 5 mg tablet 2.5 mg PO QAM 07/25/22 07/25/22 History metformin 500 mg tablet,extended 1,000 mg PO QAM 07/25/22 07/25/22 History release 24 hr metoprolol tartrate 50 mg tablet 50 mg PO BID 07/25/22 07/25/22 History rivaroxaban 20 mg tablet (Xarelto) 20 mg PO DAILY 07/25/22 07/25/22 History Patient History Medical History Anxiety Asthma in remission BPH (benign prostatic hyperplasia) BPH loc w urin obs/LUTS Broken rib r/t old sports injury, shows up on CXRs as abnormal, but was very remote (in college) and does not cause any pain. Cataract Chronic kidney disease Stage III. follows w/ dr. bowens CKD (chronic kidney disease), stage III Deep vein thrombosis hx mult DVT to BLE; on coumadin; most recent - believes r/t surgeries (denies clotting disorder) Diabetes mellitus, type 2 IDDM DM type 2 (diabetes mellitus, type 2) Extrapyramidal disease and abnormal movement disorder GERD (gastroesophageal reflux disease) GERD (gastroesophageal reflux disease) History of kidney stones Hyperlipidemia Hyperlipidemia Hypertension Hypertension Kidney stone Left arm pain Multiple sclerosis Multiple sclerosis follows w/ dr. Galloawy, has not had symptoms beyond muscle twitches since the early Osteoarthritis Polyarthritis Precordial chest pain Prostate cancer screening SOB (shortness of breath) Supratherapeutic INR Thyroid nodule Surgical History H/O arthroscopic knee surgery History of appendectomy History of arthroscopy of left knee History of cardiac cath 15 years ago - CP led to cath - [place] - no stents/angioplasty, ruled indigestion - does not follow w/ cardio History of carpal tunnel release BL History of carpal tunnel surgery History of coronary artery bypass graft CABG X 5 ON 08/19/2021 ([id number], Ao-ramus-OM, Ao-PDA W/ rev SVG) History of cystoscopy History of knee joint replacement x 2 rt knee History of repair of rotator cuff BL History of surgery LLE - hardware present History of tooth extraction History of total right knee replacement S/P appendectomy S/P rotator cuff repair Status post biopsy of thyroid gland benign Family History Daughter History of anesthesia reaction PONV Grandfather (Paternal) Family history of diabetes mellitus Mother Family history of diabetes mellitus Father Family history of diabetes mellitus Social History Smoking Status: Never smoker Tobacco Type: Smokeless Tobacco (Dip or Chew) Second Hand Exposure: No; Hx Alcohol Use: No Hx Substance Use: No Preferred Language: Surinamese Communication Ability: Effective 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 Beliefs That Will Affect Care: Taoism marital status: Current Living Situation: Spouse current occupational status: retired current occupation: Retired Feels Safe at Home: Yes Assistive Devices: Cane, Walker and Wheelchair Review of Systems Review of Systems: All systems reviewed & are unremarkable except as noted in HPI & below Physical Exam Constitutional: WD/WN, vitals as above no acute distress Eyes: PERRL, conjunctivae normal, anicteric sclerae ENMT: external ear and nose normal, oropharynx normal Neck: trachea midline, no thyromegaly Respiratory: + audible wheezes (Anteriorly bilaterally with cough or deep inspiration) Cardiovascular: Rate/Rhythm: regular rate and regular rhythm Heart Sounds: normal S1 and normal S2; no murmur and no cardiac rub Vessels: no JVD Extremities: + pedal edema (Trace) Chest (Breasts): Additional Comments: Well-healed midline incision Gastrointestinal (Abdomen): normal bowel sounds, soft, nontender, no hepatosplenomegaly Musculoskeletal: no cyanosis or clubbing, extremities motor strength 5/5 Results & Data ([facility]) Vital Signs (Past 12 Hours) Vital Signs Temp Pulse Pulse Resp BP BP Pulse Ox 07/25/22 06:03 74 16 136/67 95 07/25/22 02:01 07/25/22 03:59 83 18 138/67 94 07/25/22 03:00 82 20 138/67 93 07/25/22 02:01 88 18 140/73 94 07/25/22 01:00 109 H 16 147/78 H 95 07/24/22 23:07 113 H 18 179/82 H 96 07/24/22 22:04 07/24/22 22:04 07/24/22 21:16 36.7 C 121 H 18 208/91 H 97 Pulse Ox O2 Del Method O2 Del Method 07/25/22 06:03 Room Air 07/25/22 02:01 94 Room Air 07/25/22 03:59 Room Air 07/25/22 03:00 Room Air 07/25/22 02:01 Room Air 07/25/22 01:00 Room Air 07/24/22 23:07 Room Air 07/24/22 22:04 Room Air 07/24/22 22:04 Room Air 07/24/22 21:16 Room Air Laboratory Results Laboratory Results - last 24 hr 07/24/22 07/24/22 07/24/22 21:28 21:28 21:28 WBC 11.35 H RBC 4.83 Hgb 15.0 Hct 44.9 MCV 93.0 MCH 31.1 MCHC 33.4 RDW Std Deviation 46.6 H RDW Coeff of Leo 13.7 Plt Count 253 MPV 10.2 Immature Gran % (Auto) 1.1 Neut % (Auto) 84.6 Lymph % (Auto) 6.1 [place] % (Auto) 7.8 Eos % (Auto) 0.1 Baso % (Auto) 0.3 Neut # (Auto) 9.62 H Lymph # (Auto) 0.69 L [place] # (Auto) 0.88 H Eos # (Auto) 0.01 Baso # (Auto) 0.03 Immature Gran # (Auto) 0.12 H PT 13.1 H INR 1.2 H APTT 35.3 H PTT Ratio 1.3 VBG pH VBG pCO2 VBG pO2 VBG HCO3 VBG O2 Saturation VBG Base Excess Sodium 131 L Potassium 4.5 Chloride 96 L Carbon Dioxide 13 L Anion Gap 22 H BUN 36 H Creatinine 2.02 H Est Cr Clr Drug Dosing 34.0 Est GFR ( Amer) 37.1 Est GFR (Non-Af Amer) 32.0 BUN/Creatinine Ratio 17.8 Glucose 661 H* POC Glucose Estimat Average Glucose Hemoglobin A1c Osmolality Calcium 9.1 Phosphorus Magnesium Total Bilirubin 0.4 AST 21 ALT 30 Alkaline Phosphatase 76 Troponin I High Sens 918.7 H* Total Protein 7.8 Albumin 4.4 Globulin 3.4 Albumin/Globulin Ratio 1.3 Triglycerides Cholesterol LDL Cholesterol, Calc VLDL Cholesterol, Calc HDL Cholesterol Cholesterol/HDL Ratio Urine Color Urine Appearance Urine pH Ur Specific [place] Urine Protein Urine Glucose (UA) Urine Ketones Urine Blood Urine Nitrite Urine Bilirubin Urine Urobilinogen Ur Leukocyte Esterase Urine WBC (Auto) Urine RBC (Auto) U Hyaline Cast (Auto) U Epithel Cells (Auto) Urine Bacteria (Auto) SARS-CoV-2 (PCR) Influenza Type A (PCR) Influenza Type B (PCR) RSV (RT-PCR) 07/24/22 07/24/22 07/24/22 21:28 21:28 21:28 WBC RBC Hgb Hct MCV MCH MCHC RDW Std Deviation RDW Coeff of Leo Plt Count MPV Immature Gran % (Auto) Neut % (Auto) Lymph % (Auto) [place] % (Auto) Eos % (Auto) Baso % (Auto) Neut # (Auto) Lymph # (Auto) [place] # (Auto) Eos # (Auto) Baso # (Auto) Immature Gran # (Auto) PT INR APTT PTT Ratio VBG pH VBG pCO2 VBG pO2 VBG HCO3 VBG O2 Saturation VBG Base Excess Sodium Potassium Chloride Carbon Dioxide Anion Gap BUN Creatinine Est Cr Clr Drug Dosing Est GFR ( Amer) Est GFR (Non-Af Amer) BUN/Creatinine Ratio Glucose POC Glucose Estimat Average Glucose Hemoglobin A1c Osmolality 319 H Calcium Phosphorus Magnesium 2.0 Total Bilirubin AST ALT Alkaline Phosphatase Troponin I High Sens Total Protein Albumin Globulin Albumin/Globulin Ratio Triglycerides Cholesterol LDL Cholesterol, Calc VLDL Cholesterol, Calc HDL Cholesterol Cholesterol/HDL Ratio Urine Color Urine Appearance Urine pH Ur Specific [place] Urine Protein Urine Glucose (UA) Urine Ketones Urine Blood Urine Nitrite Urine Bilirubin Urine Urobilinogen Ur Leukocyte Esterase Urine WBC (Auto) Urine RBC (Auto) U Hyaline Cast (Auto) U Epithel Cells (Auto) Urine Bacteria (Auto) SARS-CoV-2 (PCR) NEGATIVE Influenza Type A (PCR) Positive A* Influenza Type B (PCR) Negative RSV (RT-PCR) Negative 07/24/22 07/24/22 07/25/22 22:46 23:13 00:22 WBC RBC Hgb Hct MCV MCH MCHC RDW Std Deviation RDW Coeff of Leo Plt Count MPV Immature Gran % (Auto) Neut % (Auto) Lymph % (Auto) [place] % (Auto) Eos % (Auto) Baso % (Auto) Neut # (Auto) Lymph # (Auto) [place] # (Auto) Eos # (Auto) Baso # (Auto) Immature Gran # (Auto) PT INR APTT PTT Ratio VBG pH 7.31 L VBG pCO2 34 L VBG pO2 56 VBG HCO3 17 VBG O2 Saturation 87.4 VBG Base Excess -8.2 Sodium Potassium Chloride Carbon Dioxide Anion Gap BUN Creatinine Est Cr Clr Drug Dosing Est GFR ( Amer) Est GFR (Non-Af Amer) BUN/Creatinine Ratio Glucose POC Glucose 511 H* 449 H* Estimat Average Glucose Hemoglobin A1c Osmolality Calcium Phosphorus Magnesium Total Bilirubin AST ALT Alkaline Phosphatase Troponin I High Sens Total Protein Albumin Globulin Albumin/Globulin Ratio Triglycerides Cholesterol LDL Cholesterol, Calc VLDL Cholesterol, Calc HDL Cholesterol Cholesterol/HDL Ratio Urine Color Urine Appearance Urine pH Ur Specific [place] Urine Protein Urine Glucose (UA) Urine Ketones Urine Blood Urine Nitrite Urine Bilirubin Urine Urobilinogen Ur Leukocyte Esterase Urine WBC (Auto) Urine RBC (Auto) U Hyaline Cast (Auto) U Epithel Cells (Auto) Urine Bacteria (Auto) SARS-CoV-2 (PCR) Influenza Type A (PCR) Influenza Type B (PCR) RSV (RT-PCR) 07/25/22 07/25/22 07/25/22 01:35 02:15 02:15 WBC RBC Hgb Hct MCV MCH MCHC RDW Std Deviation RDW Coeff of Leo Plt Count MPV Immature Gran % (Auto) Neut % (Auto) Lymph % (Auto) [place] % (Auto) Eos % (Auto) Baso % (Auto) Neut # (Auto) Lymph # (Auto) [place] # (Auto) Eos # (Auto) Baso # (Auto) Immature Gran # (Auto) PT INR APTT PTT Ratio VBG pH VBG pCO2 VBG pO2 VBG HCO3 VBG O2 Saturation VBG Base Excess Sodium 136 Potassium 4.1 Chloride 105 Carbon Dioxide 17 L Anion Gap 14 H BUN 33 H Creatinine 1.72 H D Est Cr Clr Drug Dosing 39.9 Est GFR ( Amer) 45.0 Est GFR (Non-Af Amer) 38.9 BUN/Creatinine Ratio 19.2 Glucose 358 H* POC Glucose 391 H* Estimat Average Glucose Hemoglobin A1c Osmolality Calcium 8.6 Phosphorus 3.6 Magnesium 2.0 Total Bilirubin AST ALT Alkaline Phosphatase Troponin I High Sens 2867.0 H* D Total Protein Albumin Globulin Albumin/Globulin Ratio Triglycerides Cholesterol LDL Cholesterol, Calc VLDL Cholesterol, Calc HDL Cholesterol Cholesterol/HDL Ratio Urine Color Urine Appearance Urine pH Ur Specific [place] Urine Protein Urine Glucose (UA) Urine Ketones Urine Blood Urine Nitrite Urine Bilirubin Urine Urobilinogen Ur Leukocyte Esterase Urine WBC (Auto) Urine RBC (Auto) U Hyaline Cast (Auto) U Epithel Cells (Auto) Urine Bacteria (Auto) SARS-CoV-2 (PCR) Influenza Type A (PCR) Influenza Type B (PCR) RSV (RT-PCR) 07/25/22 07/25/22 07/25/22 02:15 02:23 02:24 WBC RBC Hgb Hct MCV MCH MCHC RDW Std Deviation RDW Coeff of Leo Plt Count MPV Immature Gran % (Auto) Neut % (Auto) Lymph % (Auto) [place] % (Auto) Eos % (Auto) Baso % (Auto) Neut # (Auto) Lymph # (Auto) [place] # (Auto) Eos # (Auto) Baso # (Auto) Immature Gran # (Auto) PT INR APTT PTT Ratio VBG pH VBG pCO2 VBG pO2 VBG HCO3 VBG O2 Saturation VBG Base Excess Sodium Potassium Chloride Carbon Dioxide Anion Gap BUN Creatinine Est Cr Clr Drug Dosing Est GFR ( Amer) Est GFR (Non-Af Amer) BUN/Creatinine Ratio Glucose POC Glucose 308 H* Estimat Average Glucose 260 Hemoglobin A1c 10.7 H Osmolality Calcium Phosphorus Magnesium Total Bilirubin AST ALT Alkaline Phosphatase Troponin I High Sens Total Protein Albumin Globulin Albumin/Globulin Ratio Triglycerides Cholesterol LDL Cholesterol, Calc VLDL Cholesterol, Calc HDL Cholesterol Cholesterol/HDL Ratio Urine Color Yellow Urine Appearance Clear Urine pH 5.0 Ur Specific [place] 1.025 Urine Protein 1+ H Urine Glucose (UA) 3+ H Urine Ketones Negative Urine Blood 2+ H Urine Nitrite Negative Urine Bilirubin Negative Urine Urobilinogen Negative Ur Leukocyte Esterase Negative Urine WBC (Auto) 0 Urine RBC (Auto) 0-4 U Hyaline Cast (Auto) 1-5 U Epithel Cells (Auto) 0-5 Urine Bacteria (Auto) Negative SARS-CoV-2 (PCR) Influenza Type A (PCR) Influenza Type B (PCR) RSV (RT-PCR) 07/25/22 07/25/22 07/25/22 03:24 04:26 05:25 WBC RBC Hgb Hct MCV MCH MCHC RDW Std Deviation RDW Coeff of Leo Plt Count MPV Immature Gran % (Auto) Neut % (Auto) Lymph % (Auto) [place] % (Auto) Eos % (Auto) Baso % (Auto) Neut # (Auto) Lymph # (Auto) [place] # (Auto) Eos # (Auto) Baso # (Auto) Immature Gran # (Auto) PT INR APTT PTT Ratio VBG pH VBG pCO2 VBG pO2 VBG HCO3 VBG O2 Saturation VBG Base Excess Sodium Potassium Chloride Carbon Dioxide Anion Gap BUN Creatinine Est Cr Clr Drug Dosing Est GFR ( Amer) Est GFR (Non-Af Amer) BUN/Creatinine Ratio Glucose POC Glucose 279 H 218 H 213 H Estimat Average Glucose Hemoglobin A1c Osmolality Calcium Phosphorus Magnesium Total Bilirubin AST ALT Alkaline Phosphatase Troponin I High Sens Total Protein Albumin Globulin Albumin/Globulin Ratio Triglycerides Cholesterol LDL Cholesterol, Calc VLDL Cholesterol, Calc HDL Cholesterol Cholesterol/HDL Ratio Urine Color Urine Appearance Urine pH Ur Specific [place] Urine Protein Urine Glucose (UA) Urine Ketones Urine Blood Urine Nitrite Urine Bilirubin Urine Urobilinogen Ur Leukocyte Esterase Urine WBC (Auto) Urine RBC (Auto) U Hyaline Cast (Auto) U Epithel Cells (Auto) Urine Bacteria (Auto) SARS-CoV-2 (PCR) Influenza Type A (PCR) Influenza Type B (PCR) RSV (RT-PCR) 07/25/22 07/25/22 07/25/22 05:30 05:30 06:23 WBC RBC Hgb Hct MCV MCH MCHC RDW Std Deviation RDW Coeff of Leo Plt Count MPV Immature Gran % (Auto) Neut % (Auto) Lymph % (Auto) [place] % (Auto) Eos % (Auto) Baso % (Auto) Neut # (Auto) Lymph # (Auto) [place] # (Auto) Eos # (Auto) Baso # (Auto) Immature Gran # (Auto) PT INR APTT PTT Ratio VBG pH VBG pCO2 VBG pO2 VBG HCO3 VBG O2 Saturation VBG Base Excess Sodium Cancelled 137 Potassium Cancelled 4.6 Chloride Cancelled 109 H Carbon Dioxide Cancelled 19 L Anion Gap Cancelled 9 BUN Cancelled 33 H Creatinine Cancelled 1.59 H Est Cr Clr Drug Dosing Cancelled 43.2 Est GFR ( Amer) Cancelled 49.5 Est GFR (Non-Af Amer) Cancelled 42.7 BUN/Creatinine Ratio Cancelled 20.8 H Glucose Cancelled 257 H POC Glucose 221 H Estimat Average Glucose Hemoglobin A1c Osmolality Calcium Cancelled 8.4 L Phosphorus 3.3 Magnesium 2.0 Total Bilirubin AST ALT Alkaline Phosphatase Troponin I High Sens Total Protein Albumin Globulin Albumin/Globulin Ratio Triglycerides 114 Cholesterol 71 LDL Cholesterol, Calc 24 VLDL Cholesterol, Calc 23 HDL Cholesterol 24 Cholesterol/HDL Ratio 3.0 Urine Color Urine Appearance Urine pH Ur Specific [place] Urine Protein Urine Glucose (UA) Urine Ketones Urine Blood Urine Nitrite Urine Bilirubin Urine Urobilinogen Ur Leukocyte Esterase Urine WBC (Auto) Urine RBC (Auto) U Hyaline Cast (Auto) U Epithel Cells (Auto) Urine Bacteria (Auto) SARS-CoV-2 (PCR) Influenza Type A (PCR) Influenza Type B (PCR) RSV (RT-PCR) 07/25/22 07/25/22 07/25/22 07:15 07:17 07:21 WBC RBC Hgb Hct MCV MCH MCHC RDW Std Deviation RDW Coeff of Leo Plt Count MPV Immature Gran % (Auto) Neut % (Auto) Lymph % (Auto) [place] % (Auto) Eos % (Auto) Baso % (Auto) Neut # (Auto) Lymph # (Auto) [place] # (Auto) Eos # (Auto) Baso # (Auto) Immature Gran # (Auto) PT INR APTT > 139.0 H* PTT Ratio > 5.1 VBG pH VBG pCO2 VBG pO2 VBG HCO3 VBG O2 Saturation VBG Base Excess Sodium Potassium Chloride Carbon Dioxide Anion Gap BUN Creatinine Est Cr Clr Drug Dosing Est GFR ( Amer) Est GFR (Non-Af Amer) BUN/Creatinine Ratio Glucose POC Glucose 210 H Estimat Average Glucose Hemoglobin A1c Osmolality Calcium Phosphorus Magnesium Total Bilirubin AST ALT Alkaline Phosphatase Troponin I High Sens 4751.7 H* D Total Protein Albumin Globulin Albumin/Globulin Ratio Triglycerides Cholesterol LDL Cholesterol, Calc VLDL Cholesterol, Calc HDL Cholesterol Cholesterol/HDL Ratio Urine Color Urine Appearance Urine pH Ur Specific [place] Urine Protein Urine Glucose (UA) Urine Ketones Urine Blood Urine Nitrite Urine Bilirubin Urine Urobilinogen Ur Leukocyte Esterase Urine WBC (Auto) Urine RBC (Auto) U Hyaline Cast (Auto) U Epithel Cells (Auto) Urine Bacteria (Auto) SARS-CoV-2 (PCR) Influenza Type A (PCR) Influenza Type B (PCR) RSV (RT-PCR) 07/25/22 07/25/22 07/25/22 07:28 08:38 09:24 WBC RBC Hgb Hct MCV MCH MCHC RDW Std Deviation RDW Coeff of Leo Plt Count MPV Immature Gran % (Auto) Neut % (Auto) Lymph % (Auto) [place] % (Auto) Eos % (Auto) Baso % (Auto) Neut # (Auto) Lymph # (Auto) [place] # (Auto) Eos # (Auto) Baso # (Auto) Immature Gran # (Auto) PT INR APTT 72.5 H* PTT Ratio 2.6 VBG pH VBG pCO2 VBG pO2 VBG HCO3 VBG O2 Saturation VBG Base Excess Sodium Potassium Chloride Carbon Dioxide Anion Gap BUN Creatinine Est Cr Clr Drug Dosing Est GFR ( Amer) Est GFR (Non-Af Amer) BUN/Creatinine Ratio Glucose POC Glucose 211 H 199 H Estimat Average Glucose Hemoglobin A1c Osmolality Calcium Phosphorus Magnesium Total Bilirubin AST ALT Alkaline Phosphatase Troponin I High Sens Total Protein Albumin Globulin Albumin/Globulin Ratio Triglycerides Cholesterol LDL Cholesterol, Calc VLDL Cholesterol, Calc HDL Cholesterol Cholesterol/HDL Ratio Urine Color Urine Appearance Urine pH Ur Specific [place] Urine Protein Urine Glucose (UA) Urine Ketones Urine Blood Urine Nitrite Urine Bilirubin Urine Urobilinogen Ur Leukocyte Esterase Urine WBC (Auto) Urine RBC (Auto) U Hyaline Cast (Auto) U Epithel Cells (Auto) Urine Bacteria (Auto) SARS-CoV-2 (PCR) Influenza Type A (PCR) Influenza Type B (PCR) RSV (RT-PCR) 07/25/22 09:51 WBC RBC Hgb Hct MCV MCH MCHC RDW Std Deviation RDW Coeff of Leo Plt Count MPV Immature Gran % (Auto) Neut % (Auto) Lymph % (Auto) [place] % (Auto) Eos % (Auto) Baso % (Auto) Neut # (Auto) Lymph # (Auto) [place] # (Auto) Eos # (Auto) Baso # (Auto) Immature Gran # (Auto) PT INR APTT PTT Ratio VBG pH VBG pCO2 VBG pO2 VBG HCO3 VBG O2 Saturation VBG Base Excess Sodium Pending Potassium Pending Chloride Pending Carbon Dioxide Pending Anion Gap Pending BUN Pending Creatinine Pending Est Cr Clr Drug Dosing Pending Est GFR ( Amer) Pending Est GFR (Non-Af Amer) Pending BUN/Creatinine Ratio Pending Glucose Pending POC Glucose Estimat Average Glucose Hemoglobin A1c Osmolality Calcium Pending Phosphorus Pending Magnesium Pending Total Bilirubin AST ALT Alkaline Phosphatase Troponin I High Sens Total Protein Albumin Globulin Albumin/Globulin Ratio Triglycerides Cholesterol LDL Cholesterol, Calc VLDL Cholesterol, Calc HDL Cholesterol Cholesterol/HDL Ratio Urine Color Urine Appearance Urine pH Ur Specific [place] Urine Protein Urine Glucose (UA) Urine Ketones Urine Blood Urine Nitrite Urine Bilirubin Urine Urobilinogen Ur Leukocyte Esterase Urine WBC (Auto) Urine RBC (Auto) U Hyaline Cast (Auto) U Epithel Cells (Auto) Urine Bacteria (Auto) SARS-CoV-2 (PCR) Influenza Type A (PCR) Influenza Type B (PCR) RSV (RT-PCR) Diagnostic Findings Echocardiogram 07/25/2022 The left ventricle is normal in size. There is moderate concentric left ventricular hypertrophy. There is very mild hypokinesis of the inferior and septal apex with otherwise normal wall motion Grade I diastolic dysfunction, (abnormal relaxation pattern). There is no significant valvular disease Improved from prior outpatient study
[2022-07-25 08:42] LABS: Partial Thromboplastin Time > 139.0 Seconds (21.0-31.0)
[2022-07-25 09:16] LABS: Partial Thromboplastin Ratio 2.6
[2022-07-25] MEDS: INSULIN ASPART PER UNIT SC SCH ×5 (09:20→21:44)
--- NOTE | 2022-07-25 09:31 | Pharmacy Report ---
Pharmacy Glycemic Short Note 2 - Date of Service July 25, 2022 - Glycemic Short BSG Results (Last 24 hours): 07/24/22 07/24/22 07/25/22 21:28 23:13 00:22 Glucose 661 H* POC Glucose 511 H* 449 H* 07/25/22 07/25/22 07/25/22 01:35 02:15 02:23 Glucose 358 H* POC Glucose 391 H* 308 H* 07/25/22 07/25/22 07/25/22 03:24 04:26 05:25 Glucose POC Glucose 279 H 218 H 213 H 07/25/22 07/25/22 07/25/22 05:30 05:30 06:23 Glucose Cancelled 257 H POC Glucose 221 H 07/25/22 07/25/22 07:17 08:38 Glucose POC Glucose 210 H 211 H OUTPATIENT ANTIDIABETIC REGIMEN: * Lantus 42 units SC BID * Metformin ER 1000 mg PO AM * Jardiance 25 mg PO AM * HbA1c: 10.7% (07/25/22) ASSESSMENT: * 71 yo M admitted secondary to DKA. Pharmacy has been consulted to assist with inpatient glycemic management. * Initial labs: Serum BSG 661, Anion Gap 22, CO2 13, SCr 2.02, K 4.5, VBG pH 7.31. * Received 1 L NSS bolus in ED. Started on insulin drip with initial bolus of 8.9 units with drip starting at 8.9 units/hr. * Fluids changed to NSS + 20 KCl at 125 cc/hr. * BSGs trending down: [phone] mg/dL. * Fluids changed to D5 1/2 NS + 20 KCl once BSG reached goal of 150-250. * Most recent labs: Serum BSG 200, Anion Gap 9, CO2 20, SCr 1.47, K 4.4. * Gap is closed at this time and acidosis is resolved. * Tightened goal BSG range to 110-180 mg/dL. Hoping to get drip rate below 3- 4 units/hr prior to discontinuing it. * Gave home dose of Lantus this morning to overlap with drip and help with transition. PLAN FOR INPATIENT GLYCEMIC CONTROL: * Hold outpatient oral diabetes medications * Discontinue insulin drip at this time * Basal insulin * Lantus 42 units SC BID * Bolus insulin * NovoLog per scale ACHS or Q6hrs while NPO * Goal Range: Low 110 mg/dL - High 140 mg/dL * Correction Factor: 15 mg/dL/unit * Nutritional / Prandial insulin per carb ratio of 1 unit per 5 grams CHO consumed
[2022-07-25 09:45] LABS: Partial Thromboplastin Time 72.5 Seconds (21.0-31.0)
[2022-07-25] MEDS: FAMOTIDINE 20 MG in SYRINGE 3 ML IV SCH ×2 (10:02→21:36)
[2022-07-25] MEDS: OSELTAMIVIR PHOSPHATE SUSP 30 MG/5 ML UDP PO SCH ×2 (10:03→21:36)
[2022-07-25] MEDS: ATORVASTATIN 40 MG TAB PO SCH (10:04)
[2022-07-25] MEDS: ASPIRIN 81 MG ECTAB PO SCH (10:05)
[2022-07-25] MEDS: METOPROLOL TARTRATE 50 MG TAB PO SCH ×2 (10:06→21:15)
[2022-07-25] MEDS: allopurinoL 100 MG TAB PO SCH (10:06)
[2022-07-25] MEDS: lisinopril 2.5 MG TAB PO SCH (10:06)
[2022-07-25] MEDS: EZETIMIBE 10 MG TABLET PO SCH (10:07)
[2022-07-25 10:53] LABS: BUN Creatinine Ratio 20.4 (10-20); Calcium 8.6 mg/dl (8.5-10.1); Creatinine Clr Calc Pharmacy 46.7 ml/min; Est GFR (African American) 54.5 ml/min; Phosphorus 3.7 mg/dl (2.5-4.9); Potassium 4.4 mmol/L (3.5-5.1)
--- NOTE | 2022-07-25 12:17 | Hospitalist Progress Note ---
Date of Service July 25, 2022 Assessment & Plan (1) DKA (diabetic ketoacidosis): Plan DKA Likely precipitated due to Infection H/O DM II, diabetic retinopathy, diabetic peripheral neuropathy --Chest CT:Unremarkable evaluation of the chest. Thyromegaly with tiny thyroid nodules, as above. --CT ABD: No acute intra-abdominal or intrapelvic abnormality. No bowel obstruction or bowel wall thickening. No urolith or hydronephrosis. Prostatomegaly with urinary bladder distention. --Blood cultures pending --Anion gap closed --IV Insulin>> transition to Insulin SQ Continue IV fluids Monitor and replace electrolytes as needed Monitor blood glucose levels Advance diet as tolerated Appreciate glycemic pharmacist help Influenza A Acute bronchitis secondary to above H/O Asthma CT chest as above Check procalcitonin Continue Tamiflu Empirically on doxycycline NSTEMI Likely demand ischemia secondary to above H/O CAD, CABG X 5 ECHO: Moderate concentric LVH. Very mild hypokinesis of the inferior and septal apex with otherwise normal wall motion. Grade 1 diastolic dysfunction. Continue IV heparin Also on nitroglycerin Appreciate cardiology input Continue aspirin, metoprolol, statin, Zetia H/O Multinodular goiter Check TSH May need follow-up as outpatient Prostatomegaly Monitor for any urinary retention Bladder scan as needed Gout Continue allopurinol CKD III Monitor renal function Avoid nephrotoxic agents as able H/O multiple sclerosis MUGS Polymyalgia rheumatica DVT Px: IV Heparin Code Status DNR/DNI Admission and Anticipated Discharge Date Admission Date: July 25, 2022 Subjective Patient is seen and examined at bedside States having cough, intermittent shortness of breath associated with cough Also states having chest pain which is better Denies any nausea, vomiting, abdominal pain, dizziness No other complaints Review of Systems Review of Systems: All systems reviewed & are unremarkable except as noted in Subjective Physical Exam 2 Physical Exam: Physical Exam: Vitals signs as noted above General Appearance:Moderately built and nourished, no apparent distress Head: normocephalic, Atraumatic Eyes: normal inspection, EOMI Neck: supple, Trachea midline Respiratory/Chest: Normal breath sounds, CTA, No accessory muscle use Cardiovascular: S1, S2, No murmur Abdomen/GI:Soft, abdomen distended, mild soreness on palpation, Bowel sounds present Extremities/Musculoskeletal:normal inspection, Trace edema Neurologic/Psych:AAOX3, grossly no focal neurological deficits Skin: normal color, warm Results & Data Results & Data ([facility]) Vital Signs (Past 12 Hours) Vital Signs Pulse Resp BP Pulse Ox Pulse Ox O2 Del Method O2 Del Method 07/25/22 06:03 74 16 136/67 95 Room Air 07/25/22 02:01 94 Room Air 07/25/22 03:59 83 18 138/67 94 Room Air 07/25/22 03:00 82 20 138/67 93 Room Air 07/25/22 02:01 88 18 140/73 94 Room Air 07/25/22 01:00 109 H 16 147/78 H 95 Room Air Laboratory Results Short CBC 07/24/22 Range/Units 21:28 WBC 11.35 H (4.8-10.8) K/ul Hgb 15.0 (14.0-18.0) g/dl Hct 44.9 (40.1-51.0) % Plt Count 253 (130-400) K/uL BMP 07/24/22 07/25/22 07/25/22 21:28 02:15 05:30 Sodium 131 L 136 Cancelled Potassium 4.5 4.1 Cancelled Chloride 96 L 105 Cancelled Carbon Dioxide 13 L 17 L Cancelled BUN 36 H 33 H Cancelled Creatinine 2.02 H 1.72 H D Cancelled Glucose 661 H* 358 H* Cancelled Calcium 9.1 8.6 Cancelled 07/25/22 07/25/22 05:30 09:51 Sodium 137 139 Potassium 4.6 4.4 Chloride 109 H 110 H Carbon Dioxide 19 L 20 L BUN 33 H 30 H Creatinine 1.59 H 1.47 H Glucose 257 H 200 H Calcium 8.4 L 8.6 Liver Function 07/24/22 Range/Units 21:28 Total Bilirubin 0.4 (0.2-1.0) mg/dl AST 21 (13-39) U/L ALT 30 (7-52) U/L Alkaline Phosphatase 76 (34-104) U/L Albumin 4.4 (3.4-5.0) gm/dl Urine 07/25/22 Range/Units 02:24 Urine Color Yellow Urine Appearance Clear (Clear) Urine pH 5.0 (4.5-7.5) Ur Specific [place] 1.025 (1.000-1.030) Urine Protein 1+ H (Negative) Urine Glucose (UA) 3+ H (Negative)
--- NOTE | 2022-07-25 12:42 | Electrocardiogram Report ---
Test Reason : Blood Pressure : / mmHG Vent. Rate : 111 BPM Atrial Rate : 111 BPM P-R Int : 210 ms QRS Dur : 092 ms QT Int : 302 ms P-R-T Axes : 073 042 137 degrees QTc Int : 410 ms Sinus tachycardia with 1st degree A-V block Septal infarct (cited on or before 29-JAN-2022) Abnormal ECG When compared with ECG of 29-JAN-2022 15:58, Vent. rate has increased BY 57 BPM Non-specific change in ST segment in Inferior leads T wave inversion now evident in Inferior leads Nonspecific T wave abnormality, worse in Lateral leads Confirmed by Surendra Canela ([id number]) on 07/25/2022 12:42:35 PM Referred By: REFERRED SELF Confirmed By:Surendra Canela
--- NOTE | 2022-07-25 12:55 | Electrocardiogram Report ---
Test Reason : Blood Pressure : / mmHG Vent. Rate : 081 BPM Atrial Rate : 081 BPM P-R Int : 214 ms QRS Dur : 102 ms QT Int : 390 ms P-R-T Axes : 069 013 071 degrees QTc Int : 453 ms Sinus rhythm with 1st degree A-V block Anteroseptal infarct (cited on or before 29-JAN-2022) Abnormal ECG When compared with ECG of 24-JUL-2022 21:26, (unconfirmed) Non-specific change in ST segment in Inferior leads ST no longer depressed in Lateral leads T wave inversion no longer evident in Inferior leads Confirmed by Surendra Canela ([id number]) on 07/25/2022 12:54:44 PM Referred By: REFERRED SELF Confirmed By:Surendra Canela
[2022-07-25 14:01] LABS: BUN Creatinine Ratio 21.3 (10-20); Calcium 8.6 mg/dl (8.5-10.1); Creatinine Clr Calc Pharmacy 50.5 ml/min; Est GFR (African American) 59.8 ml/min; Est GFR (Non-African American) 51.6 ml/min; Phosphorus 3.7 mg/dl (2.5-4.9); Potassium 4.8 mmol/L (3.5-5.1)
[2022-07-25 14:08] LABS: Partial Thromboplastin Ratio 1.7
[2022-07-25 14:18] LABS: Partial Thromboplastin Time 46.1 Seconds (21.0-31.0)
[2022-07-25] MEDS: DEXTROMETHORPHAN POLYMR COMPLX 30 MG/5 ML UDP PO PRN (15:57)
[2022-07-25 20:02] LABS: BUN Creatinine Ratio 19.8 (10-20); Calcium 8.2 mg/dl (8.5-10.1); Creatinine Clr Calc Pharmacy 42.7 ml/min; Est GFR (African American) 46.7 ml/min; Est GFR (Non-African American) 40.3 ml/min; Magnesium 1.9 mg/dl (1.7-2.4); Phosphorus 3.3 mg/dl (2.5-4.9); Potassium 4.5 mmol/L (3.5-5.1)
[2022-07-25 20:03] LABS: Partial Thromboplastin Ratio 1.7
[2022-07-25 20:41] LABS: Partial Thromboplastin Time 47.6 Seconds (21.0-31.0)
[2022-07-25] MEDS: DOXYCYCLINE HYCLATE 100 MG CAP PO SCH (21:16)
[2022-07-25] MEDS: LANTUS PER UNIT CHARGE SQ SCH (21:44)
[2022-07-25 23:51] LABS: BUN Creatinine Ratio 20.8 (10-20); Calcium 8.1 mg/dl (8.5-10.1); Creatinine Clr Calc Pharmacy 38.9 ml/min; Est GFR (African American) 41.8 ml/min; Est GFR (Non-African American) 36.1 ml/min; Phosphorus 3.4 mg/dl (2.5-4.9); Potassium 4.2 mmol/L (3.5-5.1)
[2022-07-26] MEDS: HEPARIN SODIUM/DEXTROSE 25,000 UNITS/500 ML BAG IV SCH (00:39)
[2022-07-26] MEDS: NITROGLYCERIN 2% OINTMENT 30GM TUBE EXT SCH ×2 (04:58→09:34)
[2022-07-26 06:24] LABS: Hematocrit (blood only) 37.1 % (40.1-51.0); Hemoglobin 12.5 g/dl (14.0-18.0); Mean Corpuscular Hemoglobin 31.1 pg (25.0-34.0); Mean Corpuscular Hgb Conc 33.7 g/dL (32.0-36.0); Mean Corpuscular Volume 92.3 fL (80.0-100.0); Mean Platelet Volume 10.3 fL (9.4-12.4); Platelet Count 220 K/uL (130-400); RDW Coefficient of Variation 14.1 % (11.5-14.5); RDW Standard Deviation 47.8 fL (36.4-46.3); Red Blood Count 4.02 M/uL (4.63-6.08); White Blood Count 12.71 K/ul (4.8-10.8)
[2022-07-26 06:44] LABS: BUN Creatinine Ratio 23.9 (10-20); Creatinine Clr Calc Pharmacy 42.6 ml/min; Est GFR (African American) 48.1 ml/min; Est GFR (Non-African American) 41.5 ml/min; Magnesium 2.1 mg/dl (1.7-2.4); Phosphorus 3.4 mg/dl (2.5-4.9); Potassium 3.9 mmol/L (3.5-5.1)
[2022-07-26 06:53] LABS: Partial Thromboplastin Ratio 1.8
[2022-07-26 06:54] LABS: Partial Thromboplastin Time 49.4 Seconds (21.0-31.0)
[2022-07-26 06:59] LABS: Thyroid Stimulating Hormone 0.185 uIu/ml (0.300-4.500)
[2022-07-26 07:34] LABS: T4 Free Thyroxine 1.16 ng/dl (0.61-1.60)
[2022-07-26] MEDS: INSULIN ASPART PER UNIT SC SCH ×4 (09:26→20:37)
[2022-07-26] MEDS: DOXYCYCLINE HYCLATE 100 MG CAP PO SCH ×2 (09:27→20:08)
[2022-07-26] MEDS: allopurinoL 100 MG TAB PO SCH (09:27)
[2022-07-26] MEDS: LANTUS PER UNIT CHARGE SQ SCH (09:27)
[2022-07-26] MEDS: EZETIMIBE 10 MG TABLET PO SCH (09:28)
[2022-07-26] MEDS: ASPIRIN 81 MG ECTAB PO SCH (09:28)
[2022-07-26] MEDS: lisinopril 2.5 MG TAB PO SCH ×2 (09:28→20:08)
[2022-07-26] MEDS: ATORVASTATIN 40 MG TAB PO SCH (09:28)
[2022-07-26] MEDS: METOPROLOL TARTRATE 50 MG TAB PO SCH ×2 (09:28→20:09)
[2022-07-26] MEDS: DEXTROMETHORPHAN POLYMR COMPLX 30 MG/5 ML UDP PO PRN ×2 (09:29→21:27)
[2022-07-26] MEDS: OSELTAMIVIR PHOSPHATE SUSP 30 MG/5 ML UDP PO SCH ×2 (09:34→20:15)
[2022-07-26] MEDS: FAMOTIDINE 20 MG in SYRINGE 3 ML IV SCH ×2 (09:34→20:15)
--- NOTE | 2022-07-26 10:45 | Cardiology Progress Note ---
Date of Service July 26, 2022 Assessment & Plan (1) Elevated troponin: (2) DKA (diabetic ketoacidosis): (3) CKD (chronic kidney disease): (4) Influenza A: Plan Complex 71-year-old male status post coronary bypass grafting 08/19/2021 after non-ST elevation myocardial infarction multivessel coronary disease discerned. Patient with chronic stable angina pectoris, hypertension hyperlipidemia Now presents with multifactorial poor decline in association with influenza A, diabetic ketoacidosis. He had associated symptoms of searing pain across abdomen and chest worse with cough with focal tenderness currently present. Troponins are elevated reflecting acute illness, and demand based ischemia/non- ST segment elevation myocardial infarction. Currently asymptomatic except tender to palpation and a wheezy cough EKGs without acute ischemic changes. Echocardiogram improved from prior evaluations with normal to hyperdynamic LV function with only subtle apical inferior and septal hypokinesis 1. Elevated troponin/non-ST segment elevation myocardial infarction demand based: 2. DKA with acute renal insufficiency 3. Influenza A with bronchiolitis, bronchospasm, cough Patient has remained hemodynamically stable. EKG without acute ST segment abnormalities. Acute rise in troponin is considered to be demand based. Increased risk for coronary angiography given acute renal insufficiency Plan conservative medical therapy patient agreeable We will continue IV heparin additional 24 hours then resume oral Xarelto Change topical nitrates to oral isosorbide mononitrate 60 mg/day Increase lisinopril to 2.5 mg twice per day for additional blood pressure and cardiac protection following renal function closely Admission and Anticipated Discharge Date Admission Date: July 25, 2022 Subjective Patient seen and examined, chart, medications, telemetry reviewed. Still with pain across the chest to palpation and deep inspiration. Diffuse wheezy cough slowly improving with modest production No bleeding difficulties. No arrhythmias on telemetry Blood sugars and renal function have improved since admission Review of Systems Review of Systems: All systems reviewed & are unremarkable except as noted in Subjective Physical Exam Constitutional: WD/WN, vitals as above no acute distress Eyes: PERRL, conjunctivae normal, anicteric sclerae ENMT: external ear and nose normal, oropharynx normal Neck: trachea midline, no thyromegaly Respiratory: + audible wheezes (Anteriorly bilaterally with cough or deep inspiration) Cardiovascular: Rate/Rhythm: regular rate and regular rhythm Heart Sounds: normal S1 and normal S2; no murmur and no cardiac rub Vessels: no JVD Extremities: + pedal edema (Trace) Gastrointestinal (Abdomen): normal bowel sounds, soft, nontender, no hepatosplenomegaly Musculoskeletal: no cyanosis or clubbing, extremities motor strength 5/5 Results & Data ([facility]) Vital Signs (Past 12 Hours) Vital Signs Temp Pulse Pulse Resp BP Pulse Ox Pulse Ox 07/26/22 08:00 36.8 C 67 18 150/87 H 96 07/26/22 02:55 36.7 C 62 18 124/68 93 07/26/22 02:01 94 07/25/22 23:11 64 07/25/22 22:59 36.7 C 70 18 127/70 95 O2 Del Method O2 Del Method 07/26/22 08:00 Room Air 07/26/22 02:55 Room Air 07/26/22 02:01 Room Air 07/25/22 23:11 07/25/22 22:59 Room Air Laboratory Results Laboratory Results - last 24 hr 07/25/22 07/25/22 07/25/22 09:51 11:31 13:14 WBC RBC Hgb Hct MCV MCH MCHC RDW Std Deviation RDW Coeff of Leo Plt Count MPV APTT PTT Ratio Sodium 139 Potassium 4.4 Chloride 110 H Carbon Dioxide 20 L Anion Gap 9 BUN 30 H Creatinine 1.47 H Est Cr Clr Drug Dosing 46.7 Est GFR ( Amer) 54.5 Est GFR (Non-Af Amer) 47.0 BUN/Creatinine Ratio 20.4 H Glucose 200 H POC Glucose 152 H Calcium 8.6 Phosphorus 3.7 Magnesium 2.0 Troponin I High Sens 4742.1 H* Procalcitonin TSH Free T4 07/25/22 07/25/22 07/25/22 13:14 13:14 13:34 WBC RBC Hgb Hct MCV MCH MCHC RDW Std Deviation RDW Coeff of Leo Plt Count MPV APTT 46.1 H* PTT Ratio 1.7 Sodium 139 Potassium 4.8 Chloride 111 H Carbon Dioxide 21 Anion Gap 7 BUN 29 H Creatinine 1.36 Est Cr Clr Drug Dosing 50.5 Est GFR ( Amer) 59.8 Est GFR (Non-Af Amer) 51.6 BUN/Creatinine Ratio 21.3 H Glucose 150 H POC Glucose 137 H Calcium 8.6 Phosphorus 3.7 Magnesium 2.0 Troponin I High Sens Procalcitonin TSH Free T4 07/25/22 07/25/22 07/25/22 18:07 19:15 19:15 WBC RBC Hgb Hct MCV MCH MCHC RDW Std Deviation RDW Coeff of Leo Plt Count MPV APTT 47.6 H* PTT Ratio 1.7 Sodium 137 Potassium 4.5 Chloride 108 H Carbon Dioxide 19 L Anion Gap 10 BUN 33 H Creatinine 1.67 H D Est Cr Clr Drug Dosing 42.7 Est GFR ( Amer) 46.7 Est GFR (Non-Af Amer) 40.3 BUN/Creatinine Ratio 19.8 Glucose 223 H POC Glucose 175 H Calcium 8.2 L Phosphorus 3.3 Magnesium 1.9 Troponin I High Sens Procalcitonin TSH Free T4 07/25/22 07/25/22 07/26/22 20:21 23:16 05:47 WBC RBC Hgb Hct MCV MCH MCHC RDW Std Deviation RDW Coeff of Leo Plt Count MPV APTT PTT Ratio Sodium 137 139 Potassium 4.2 3.9 Chloride 110 H 111 H Carbon Dioxide 19 L 20 L Anion Gap 8 8 BUN 38 H 39 H Creatinine 1.83 H 1.63 H Est Cr Clr Drug Dosing 38.9 42.6 Est GFR ( Amer) 41.8 48.1 Est GFR (Non-Af Amer) 36.1 41.5 BUN/Creatinine Ratio 20.8 H 23.9 H Glucose 164 H 151 H POC Glucose 151 H Calcium 8.1 L 8.0 L Phosphorus 3.4 3.4 Magnesium 2.0 2.1 Troponin I High Sens Procalcitonin TSH Free T4 07/26/22 07/26/22 07/26/22 05:47 05:47 05:47 WBC 12.71 H RBC 4.02 L Hgb 12.5 L Hct 37.1 L MCV 92.3 MCH 31.1 MCHC 33.7 RDW Std Deviation 47.8 H RDW Coeff of Leo 14.1 Plt Count 220 MPV 10.3 APTT PTT Ratio Sodium Potassium Chloride Carbon Dioxide Anion Gap BUN Creatinine Est Cr Clr Drug Dosing Est GFR ( Amer) Est GFR (Non-Af Amer) BUN/Creatinine Ratio Glucose POC Glucose Calcium Phosphorus Magnesium Troponin I High Sens Procalcitonin 0.08 TSH 0.185 L Free T4 1.16 07/26/22 07/26/22 05:47 07:17 WBC RBC Hgb Hct MCV MCH MCHC RDW Std Deviation RDW Coeff of Leo Plt Count MPV APTT 49.4 H* PTT Ratio 1.8 Sodium Potassium Chloride Carbon Dioxide Anion Gap BUN Creatinine Est Cr Clr Drug Dosing Est GFR ( Amer) Est GFR (Non-Af Amer) BUN/Creatinine Ratio Glucose POC Glucose 119 H Calcium Phosphorus Magnesium Troponin I High Sens Procalcitonin TSH Free T4
--- NOTE | 2022-07-26 11:02 | Hospitalist Progress Note ---
Date of Service July 26, 2022 Assessment & Plan (1) DKA (diabetic ketoacidosis): Plan DKA possibly precipitated due to Infection Patient also reports some dietary indiscretion during holidays and was on reports being on prednisone for gout flare Current A1c 10.7% H/O DM II, diabetic retinopathy, diabetic peripheral neuropathy --Chest CT:Unremarkable evaluation of the chest. Thyromegaly with tiny thyroid nodules, as above. --CT ABD: No acute intra-abdominal or intrapelvic abnormality. No bowel obstruction or bowel wall thickening. No urolith or hydronephrosis. Prostatomegaly with urinary bladder distention. --Blood cultures pending --Anion gap closed --IV Insulin>> transition to Insulin SQ Continue IV fluids Monitor and replace electrolytes as needed Monitor blood glucose levels Advance diet as tolerated Appreciate glycemic pharmacist help Influenza A Acute bronchitis secondary to above H/O Asthma CT chest as above procalcitonin negative Continue Tamiflu Empirically on doxycycline NSTEMI Likely demand ischemia secondary to above H/O CAD, CABG X 5 ECHO: Moderate concentric LVH. Very mild hypokinesis of the inferior and septal apex with otherwise normal wall motion. Grade 1 diastolic dysfunction. Continue IV heparin, plan to switch back to xarelto tomorrow Also on nitroglycerin - switch to isosorbide mononitrate Start lisinopril Appreciate cardiology input Continue aspirin, metoprolol, statin, Zetia H/O Multinodular goiter TSH low T4 normal May need follow-up as outpatient Prostatomegaly Monitor for any urinary retention Bladder scan as needed Gout Continue allopurinol CKD III Monitor renal function Avoid nephrotoxic agents as able H/O multiple sclerosis MUGS Polymyalgia rheumatica DVT Px: IV Heparin Code Status : DNR/DNI Admission and Anticipated Discharge Date Admission Date: July 25, 2022 Subjective Patient seen in follow-up chest pain, elevated troponin, DKA, influenza A Currently laying in bed, in no acute distress, resting Continues to have some chest discomfort however reports feeling much better Blood sugar levels improved now No significant shortness of breath Denies any nausea, vomiting, abdominal pain, dizziness No other complaints Discussed with cardiology, continue IV heparin today, likely switch to Xarelto tomorrow. Review of Systems Review of Systems: All systems reviewed & are unremarkable except as noted in Subjective Physical Exam Physical Exam: General Appearance: Moderately built and nourished, no apparent distress Head: normocephalic, Atraumatic Eyes: normal inspection, EOMI Neck: supple, Trachea midline Respiratory/Chest: Normal breath sounds, CTA, No accessory muscle use Cardiovascular: S1, S2, No murmur Abdomen/GI: Soft, abdomen distended, mild soreness on palpation, Bowel sounds present Extremities/Musculoskeletal: normal inspection, Trace edema Neurologic/Psych: AAOX3, speech fluent, no facial asymmetry, moves extremities Skin: normal color, warm Results & Data Results & Data ([facility]) Vital Signs (Past 12 Hours) Vital Signs Temp Pulse Pulse Resp BP Pulse Ox Pulse Ox 07/26/22 08:00 36.8 C 67 18 150/87 H 96 07/26/22 02:55 36.7 C 62 18 124/68 93 07/26/22 02:01 94 07/25/22 23:11 64 07/25/22 22:59 36.7 C 70 18 127/70 95 O2 Del Method O2 Del Method 07/26/22 08:00 Room Air 07/26/22 02:55 Room Air 07/26/22 02:01 Room Air 07/25/22 23:11 07/25/22 22:59 Room Air Laboratory Results 07/26/22 07/26/22 07/26/22 Range/Units 07:17 05:47 05:47 WBC (4.8-10.8) K/ul RBC (4.63-6.08) M/uL Hgb (14.0-18.0) g/dl Hct (40.1-51.0) % MCV (80.0-100.0) fL MCH (25.0-34.0) pg MCHC (32.0-36.0) g/dL RDW Std Deviation (36.4-46.3) fL RDW Coeff of Leo (11.5-14.5) % Plt Count (130-400) K/uL MPV (9.4-12.4) fL APTT 49.4 H* (21.0-31.0) Seconds PTT Ratio 1.8 Sodium (136-145) mmol/L Potassium (3.5-5.1) mmol/L Chloride (98-107) mmol/L Carbon Dioxide (21-32) mmol/L Anion Gap (3-11) BUN (6-23) mg/dl Creatinine (0.6-1.4) mg/dl Est Cr Clr Drug Dosing ml/min Est GFR ( Amer) ml/min Est GFR (Non-Af Amer) ml/min BUN/Creatinine Ratio (10-20) Glucose (70-99(Fasting)) mg/dl POC Glucose 119 H (70-99) mg/dl Calcium (8.5-10.1) mg/dl Phosphorus (2.5-4.9) mg/dl Magnesium (1.7-2.4) mg/dl Troponin I High Sens (0-20) pg/ml Procalcitonin (0-0.5) ng/ml TSH 0.185 L (0.300-4.500) uIu/ml Free T4 1.16 (0.61-1.60) ng/dl 07/26/22 07/26/22 07/26/22 Range/Units 05:47 05:47 05:47 WBC 12.71 H (4.8-10.8) K/ul RBC 4.02 L (4.63-6.08) M/uL Hgb 12.5 L (14.0-18.0) g/dl Hct 37.1 L (40.1-51.0) % MCV 92.3 (80.0-100.0) fL MCH 31.1 (25.0-34.0) pg MCHC 33.7 (32.0-36.0) g/dL RDW Std Deviation 47.8 H (36.4-46.3) fL RDW Coeff of Leo 14.1 (11.5-14.5) % Plt Count 220 (130-400) K/uL MPV 10.3 (9.4-12.4) fL APTT (21.0-31.0) Seconds PTT Ratio Sodium 139 (136-145) mmol/L Potassium 3.9 (3.5-5.1) mmol/L Chloride 111 H (98-107) mmol/L Carbon Dioxide 20 L (21-32) mmol/L Anion Gap 8 (3-11) BUN 39 H (6-23) mg/dl Creatinine 1.63 H (0.6-1.4) mg/dl Est Cr Clr Drug Dosing 42.6 ml/min Est GFR ( Amer) 48.1 ml/min Est GFR (Non-Af Amer) 41.5 ml/min BUN/Creatinine Ratio 23.9 H (10-20) Glucose 151 H (70-99(Fasting)) mg/dl POC Glucose (70-99) mg/dl Calcium 8.0 L (8.5-10.1) mg/dl Phosphorus 3.4 (2.5-4.9) mg/dl Magnesium 2.1 (1.7-2.4) mg/dl Troponin I High Sens (0-20) pg/ml Procalcitonin 0.08 (0-0.5) ng/ml TSH (0.300-4.500) uIu/ml Free T4 (0.61-1.60) ng/dl 07/25/22 07/25/22 07/25/22 Range/Units 23:16 20:21 19:15 WBC (4.8-10.8) K/ul RBC (4.63-6.08) M/uL Hgb (14.0-18.0) g/dl Hct (40.1-51.0) % MCV (80.0-100.0) fL MCH (25.0-34.0) pg MCHC (32.0-36.0) g/dL RDW Std Deviation (36.4-46.3) fL RDW Coeff of Leo (11.5-14.5) % Plt Count (130-400) K/uL MPV (9.4-12.4) fL APTT 47.6 H* (21.0-31.0) Seconds PTT Ratio 1.7 Sodium 137 (136-145) mmol/L Potassium 4.2 (3.5-5.1) mmol/L Chloride 110 H (98-107) mmol/L Carbon Dioxide 19 L (21-32) mmol/L Anion Gap 8 (3-11) BUN 38 H (6-23) mg/dl Creatinine 1.83 H (0.6-1.4) mg/dl Est Cr Clr Drug Dosing 38.9 ml/min Est GFR ( Amer) 41.8 ml/min Est GFR (Non-Af Amer) 36.1 ml/min BUN/Creatinine Ratio 20.8 H (10-20) Glucose 164 H (70-99(Fasting)) mg/dl POC Glucose 151 H (70-99) mg/dl Calcium 8.1 L (8.5-10.1) mg/dl Phosphorus 3.4 (2.5-4.9) mg/dl Magnesium 2.0 (1.7-2.4) mg/dl Troponin I High Sens (0-20) pg/ml Procalcitonin (0-0.5) ng/ml TSH (0.300-4.500) uIu/ml Free T4 (0.61-1.60) ng/dl 07/25/22 07/25/22 07/25/22 Range/Units 19:15 18:07 13:34 WBC (4.8-10.8) K/ul RBC (4.63-6.08) M/uL Hgb (14.0-18.0) g/dl Hct (40.1-51.0) % MCV (80.0-100.0) fL MCH (25.0-34.0) pg MCHC (32.0-36.0) g/dL RDW Std Deviation (36.4-46.3) fL RDW Coeff of Leo (11.5-14.5) % Plt Count (130-400) K/uL MPV (9.4-12.4) fL APTT (21.0-31.0) Seconds PTT Ratio Sodium 137 (136-145) mmol/L Potassium 4.5 (3.5-5.1) mmol/L Chloride 108 H (98-107) mmol/L Carbon Dioxide 19 L (21-32) mmol/L Anion Gap 10 (3-11) BUN 33 H (6-23) mg/dl Creatinine 1.67 H D (0.6-1.4) mg/dl Est Cr Clr Drug Dosing 42.7 ml/min Est GFR ( Amer) 46.7 ml/min Est GFR (Non-Af Amer) 40.3 ml/min BUN/Creatinine Ratio 19.8 (10-20) Glucose 223 H (70-99(Fasting)) mg/dl POC Glucose 175 H 137 H (70-99) mg/dl Calcium 8.2 L (8.5-10.1) mg/dl Phosphorus 3.3 (2.5-4.9) mg/dl Magnesium 1.9 (1.7-2.4) mg/dl Troponin I High Sens (0-20) pg/ml Procalcitonin (0-0.5) ng/ml TSH (0.300-4.500) uIu/ml Free T4 (0.61-1.60) ng/dl 07/25/22 07/25/22 07/25/22 Range/Units 13:14 13:14 13:14 WBC (4.8-10.8) K/ul RBC (4.63-6.08) M/uL Hgb (14.0-18.0) g/dl Hct (40.1-51.0) % MCV (80.0-100.0) fL MCH (25.0-34.0) pg MCHC (32.0-36.0) g/dL RDW Std Deviation (36.4-46.3) fL RDW Coeff of Leo (11.5-14.5) % Plt Count (130-400) K/uL MPV (9.4-12.4) fL APTT 46.1 H* (21.0-31.0) Seconds PTT Ratio 1.7 Sodium 139 (136-145) mmol/L Potassium 4.8 (3.5-5.1) mmol/L Chloride 111 H (98-107) mmol/L Carbon Dioxide 21 (21-32) mmol/L Anion Gap 7 (3-11) BUN 29 H (6-23) mg/dl Creatinine 1.36 (0.6-1.4) mg/dl Est Cr Clr Drug Dosing 50.5 ml/min Est GFR ( Amer) 59.8 ml/min Est GFR (Non-Af Amer) 51.6 ml/min BUN/Creatinine Ratio 21.3 H (10-20) Glucose 150 H (70-99(Fasting)) mg/dl POC Glucose (70-99) mg/dl Calcium 8.6 (8.5-10.1) mg/dl Phosphorus 3.7 (2.5-4.9) mg/dl Magnesium 2.0 (1.7-2.4) mg/dl Troponin I High Sens 4742.1 H* (0-20) pg/ml Procalcitonin (0-0.5) ng/ml TSH (0.300-4.500) uIu/ml Free T4 (0.61-1.60) ng/dl 07/25/22 Range/Units 11:31 WBC (4.8-10.8) K/ul RBC (4.63-6.08) M/uL Hgb (14.0-18.0) g/dl Hct (40.1-51.0) % MCV (80.0-100.0) fL MCH (25.0-34.0) pg MCHC (32.0-36.0) g/dL RDW Std Deviation (36.4-46.3) fL RDW Coeff of Leo (11.5-14.5) % Plt Count (130-400) K/uL MPV (9.4-12.4) fL APTT (21.0-31.0) Seconds PTT Ratio Sodium (136-145) mmol/L Potassium (3.5-5.1) mmol/L Chloride (98-107) mmol/L Carbon Dioxide (21-32) mmol/L Anion Gap (3-11) BUN (6-23) mg/dl Creatinine (0.6-1.4) mg/dl Est Cr Clr Drug Dosing ml/min Est GFR ( Amer) ml/min Est GFR (Non-Af Amer) ml/min BUN/Creatinine Ratio (10-20) Glucose (70-99(Fasting)) mg/dl POC Glucose 152 H (70-99) mg/dl Calcium (8.5-10.1) mg/dl Phosphorus (2.5-4.9) mg/dl Magnesium (1.7-2.4) mg/dl Troponin I High Sens (0-20) pg/ml Procalcitonin (0-0.5) ng/ml TSH (0.300-4.500) uIu/ml Free T4 (0.61-1.60) ng/dl Medications Administered Current Inpatient Medications Acetaminophen (Acetaminophen 325 Mg Tab) 650 mg PO Q4H PRN PRN Reason: Pain or Fever Stop: 08/24/22 02:00 Al Hydrox/Mg Hydrox/Simethicone (Aluminum/Magnesium Susp 30 Ml Udc) 15 ml PO Q4H PRN PRN Reason: Dyspepsia Stop: 08/24/22 02:00 Allopurinol (Allopurinol 100 Mg Tab) 200 mg PO DAILY [facility] Stop: 08/24/22 08:59 Last Admin: 07/26/22 09:27 Dose: 200 mg Aspirin (Aspirin 81 Mg Ectab) 81 mg PO DAILY [facility] Stop: 08/24/22 08:59 Last Admin: 07/26/22 09:28 Dose: 81 mg Atorvastatin Calcium (Atorvastatin 40 Mg Tab) 80 mg PO QAM [facility] Stop: 08/24/22 08:59 Last Admin: 07/26/22 09:28 Dose: 80 mg Dextromethorphan Polymer Complex (Dextromethorphan Polymr Complx 30 Mg/5 Ml Udp) 30 mg PO Q12H PRN PRN Reason: Cough Stop: 08/24/22 12:32 Last Admin: 07/26/22 09:29 Dose: 30 mg Dextrose (Dextrose 50% 50 Ml Syringe) 25 - 50 ml IV UD PRN; Protocol PRN Reason: Hypoglycemia Protocol Stop: 08/24/22 03:44 Doxycycline Hyclate (Doxycycline Hyclate 100 Mg Cap) 100 mg PO BID [facility] Stop: 08/01/22 20:59 Last Admin: 07/26/22 09:27 Dose: 100 mg Ezetimibe (Ezetimibe 10 Mg Tablet) [facility] [place] Stop: 08/24/22 08:59 Last Admin: 07/26/22 09:28 Dose: 10 mg Glucagon (Glucagon For Inj 1 Mg Vial) 1 mg IM UD PRN; Protocol PRN Reason: Hypoglycemia Protocol Stop: 08/24/22 03:44 Glucose (Glucose 40% Gel 15 Gm Tube) 15 - 30 gm PO UD PRN; Protocol PRN Reason: Hypoglycemia Protocol Stop: 08/24/22 03:44 Glucose (Glucose 10 Tab/Tube) 4 - 8 tab PO UD PRN; Protocol PRN Reason: Hypoglycemia Protocol Stop: 08/24/22 03:44 Heparin Sodium/Dextrose (Heparin Sodium/Dextrose) 25,000 units in 500 mls @ 19 mls/hr IV .Q24H [facility]; Protocol Stop: 08/24/22 00:59 Last Admin: 07/26/22 00:39 Dose: 950 units/hr, 19 mls/hr Famotidine 20 mg/ Syringe 5 mls @ 2.5 mls/min IV BID [facility] Stop: 08/24/22 08:59 Last Admin: 07/26/22 09:34 Dose: 2.5 mls/min Insulin Aspart (Insulin Aspart Per Unit) 0 units SC ACHS [facility]; Protocol Stop: 08/24/22 12:19 Last Admin: 07/26/22 09:26 Dose: 8 units Insulin Glargine (Lantus Per Unit Charge) 42 units SQ BID [facility]; Protocol Stop: 08/24/22 20:59 Last Admin: 07/26/22 09:27 Dose: 42 units Isosorbide Mononitrate (Isosorbide [place] Extended Rel 60 Mg Tabcr) 60 mg PO QAM [facility] Stop: 08/25/22 10:59 Lisinopril (Lisinopril 2.5 Mg Tab) 2.5 mg PO BID [facility] Stop: 08/25/22 20:59 Magnesium Hydroxide (Magnesium Hydroxide Susp 30 Ml Udc) 30 ml PO Q12H PRN PRN Reason: Constipation Stop: 08/24/22 02:00 Metoprolol Tartrate (Metoprolol Tartrate 50 Mg Tab) 50 mg PO BID [facility] Stop: 08/24/22 08:59 Last Admin: 07/26/22 09:28 Dose: 50 mg Miscellaneous (Carbohydrates For Hypoglycemia ) 15 - 30 gm PO UD PRN PRN Reason: Hypoglycemia Treatment Stop: 08/24/22 03:44 Miscellaneous Information (Pharmacy Glycemic Mgmt Consult) 1 each N/A UD PRN PRN Reason: Consult Stop: 08/24/22 01:56 Nitroglycerin (Nitroglycerin Sl 0.4 Mg/Tab Tab) 0.4 mg SL PRN PRN PRN Reason: Chest Pain Stop: 08/24/22 02:09 Ondansetron HCl (Ondansetron Inj 2 Mg/Ml 2 Ml Vial) 4 mg IV Q6H PRN PRN Reason: Nausea Stop: 08/24/22 02:00 Oseltamivir Phosphate (Oseltamivir Phosphate Susp 30 Mg/5 Ml Udp) 30 mg PO BID [facility]; Protocol Stop: 07/30/22 08:59 Last Admin: 07/26/22 09:34 Dose: 30 mg Polyethylene Glycol (Polyethylene (Miralax) 17 Gm Pack) 17 gm PO DAILY PRN PRN Reason: Constipation Stop: 08/24/22 02:00
[2022-07-26] MEDS: ISOSORBIDE MONO EXTENDED REL 60 MG TABCR PO SCH (11:35)
--- NOTE | 2022-07-26 14:02 | Pharmacy Report ---
Pharmacy Glycemic Short Note 2 - Date of Service July 26, 2022 - Glycemic Short BSG Results (Last 24 hours): 07/25/22 07/25/22 07/25/22 13:14 18:07 19:15 Glucose 150 H 223 H POC Glucose 175 H 07/25/22 07/25/22 07/26/22 20:21 23:16 05:47 Glucose 164 H 151 H POC Glucose 151 H 07/26/22 07/26/22 07:17 11:14 Glucose POC Glucose 119 H 79 OUTPATIENT ANTIDIABETIC REGIMEN: * Lantus 42 units SC BID * Metformin ER 1000 mg PO AM * Jardiance 25 mg PO AM * HbA1c: 10.7% (07/25/22) ASSESSMENT: 07/26/22: * Mr Hurst was successfully transitioned off of the insulin gtt yesterday after noon. * BSGs have been below goal today, so will reduce Lantus beginning with PM dose today. Novolog parameters have also been loosened. * Will continue to follow and adjust regimen as indicated. 07/25 * 71 yo M admitted secondary to DKA. Pharmacy has been consulted to assist with inpatient glycemic management. * Initial labs: Serum BSG 661, Anion Gap 22, CO2 13, SCr 2.02, K 4.5, VBG pH 7.31. * Received 1 L NSS bolus in ED. Started on insulin drip with initial bolus of 8.9 units with drip starting at 8.9 units/hr. * Fluids changed to NSS + 20 KCl at 125 cc/hr. * BSGs trending down: [phone] mg/dL. * Fluids changed to D5 1/2 NS + 20 KCl once BSG reached goal of 150-250. * Most recent labs: Serum BSG 200, Anion Gap 9, CO2 20, SCr 1.47, K 4.4. * Gap is closed at this time and acidosis is resolved. * Tightened goal BSG range to 110-180 mg/dL. Hoping to get drip rate below 3- 4 units/hr prior to discontinuing it. * Gave home dose of Lantus this morning to overlap with drip and help with transition. PLAN FOR INPATIENT GLYCEMIC CONTROL: * Hold outpatient oral diabetes medications * Basal insulin * Lantus 42 units SC BID, d/c after AM dose * Reduce to Lantus 30 units SC BID, beginning this evening * Bolus insulin * NovoLog per scale ACHS or Q6hrs while NPO * Goal Range: Low 110 mg/dL - High 140 mg/dL * Correction Factor: 20 mg/dL/unit * Nutritional / Prandial insulin per carb ratio of 1 unit per 6 grams CHO consumed
--- NOTE | 2022-07-26 15:23 | Electrocardiogram Report ---
Test Reason : Blood Pressure : / mmHG Vent. Rate : 061 BPM Atrial Rate : 061 BPM P-R Int : 204 ms QRS Dur : 098 ms QT Int : 422 ms P-R-T Axes : 035 018 073 degrees QTc Int : 424 ms Normal sinus rhythm Normal ECG When compared with ECG of 25-JUL-2022 09:02, Borderline criteria for Anterior infarct are no longer Present Confirmed by Surendra Canela ([id number]) on 07/26/2022 3:22:43 PM Referred By: REFERRED SELF Confirmed By:Surendra Canela
[2022-07-26] MEDS: SODIUM CHLORIDE 0.9% 1000ML 1,000 ML IV SCH (15:50)
[2022-07-26] MEDS ORDERED: LANTUS PER UNIT CHARGE SQ SCH (21:00)
[2022-07-27] MEDS: ACETAMINOPHEN 325 MG TAB PO PRN ×2 (00:52→21:20)
[2022-07-27] MEDS: HEPARIN SODIUM/DEXTROSE 25,000 UNITS/500 ML BAG IV SCH (00:53)
[2022-07-27] MEDS: SODIUM CHLORIDE 0.9% 1000ML 1,000 ML IV SCH (02:04)
--- NOTE | 2022-07-27 09:15 | Cardiology Progress Note ---
Date of Service July 27, 2022 Assessment & Plan (1) Elevated troponin: (2) DKA (diabetic ketoacidosis): (3) CKD (chronic kidney disease): (4) Influenza A: Plan Complex 71-year-old male status post coronary bypass grafting 08/19/2021 after non-ST elevation myocardial infarction multivessel coronary disease discerned. Patient with chronic stable angina pectoris, hypertension hyperlipidemia Now presents with multifactorial poor decline in association with influenza A, diabetic ketoacidosis. He had associated symptoms of searing pain across abdomen and chest worse with cough with focal tenderness currently present. Troponins are elevated reflecting acute illness, and demand based ischemia/non- ST segment elevation myocardial infarction. Currently asymptomatic except tender to palpation and a wheezy cough EKGs without acute ischemic changes. Echocardiogram improved from prior evaluations with normal to hyperdynamic LV function with only subtle apical inferior and septal hypokinesis 1. Elevated troponin/non-ST segment elevation myocardial infarction demand based: 2. DKA with acute renal insufficiency 3. Influenza A with bronchiolitis, bronchospasm, cough Patient has remained hemodynamically stable. EKG without acute ST segment abnormalities. Acute rise in troponin is considered to be demand based. Increased risk for coronary angiography given acute renal insufficiency Plan conservative medical therapy patient agreeable We will continue IV heparin additional 24 hours then resume oral Xarelto Change topical nitrates to oral isosorbide mononitrate 60 mg/day Increase lisinopril to 2.5 mg twice per day for additional blood pressure and cardiac protection following renal function closely 07/27/2022 Patient continues to demonstrate improvement. BMP ordered for this morning Would recommend continue current medications with resumption of Xarelto, di scontinue IV heparin if renal function stable on laboratory testing today Medication adjustments otherwise as per day prior Gradual increase in activity in hospital Admission and Anticipated Discharge Date Admission Date: July 25, 2022 Subjective Patient seen and examined, chart, medications, telemetry reviewed. Clinically improved from day prior cough less prominent. No dizziness or lightheadedness. Chest and abdominal tenderness from coughing but no distinct chest pain or angina. No difficulties with ambulation in room. No tachyarrhythmias or arrhythmias on telemetry Physical Exam Constitutional: WD/WN, vitals as above no acute distress Eyes: PERRL, conjunctivae normal, anicteric sclerae ENMT: external ear and nose normal, oropharynx normal Neck: trachea midline, no thyromegaly Respiratory: + audible wheezes (Anteriorly bilaterally with cough or deep inspiration) Cardiovascular: Rate/Rhythm: regular rate and regular rhythm Heart Sounds: normal S1 and normal S2; no murmur and no cardiac rub Vessels: no JVD Extremities: + pedal edema (Trace) Gastrointestinal (Abdomen): normal bowel sounds, soft, nontender, no hepatosplenomegaly Musculoskeletal: no cyanosis or clubbing, extremities motor strength 5/5 Results & Data ([facility]) Vital Signs (Past 12 Hours) Vital Signs Temp Pulse Pulse Resp BP Pulse Ox O2 Del Method 07/27/22 07:43 50 L 07/27/22 07:08 36.6 C 65 18 144/67 H 95 Room Air 07/27/22 03:14 36.5 C 62 18 114/64 95 Room Air 07/26/22 22:50 36.6 C 62 18 114/57 L 95 Room Air Laboratory Results Laboratory Results - last 24 hr 07/26/22 07/26/22 07/26/22 11:14 16:21 20:22 APTT PTT Ratio VBG pH Sodium Potassium Chloride Carbon Dioxide Anion Gap BUN Creatinine Est Cr Clr Drug Dosing Est GFR ( Amer) Est GFR (Non-Af Amer) BUN/Creatinine Ratio Glucose POC Glucose 79 103 H 91 Calcium Phosphorus Magnesium 07/27/22 07/27/22 07/27/22 00:58 07:43 08:50 APTT PTT Ratio VBG pH Sodium Pending Potassium Pending Chloride Pending Carbon Dioxide Pending Anion Gap Pending BUN Pending Creatinine Pending Est Cr Clr Drug Dosing Pending Est GFR ( Amer) Pending Est GFR (Non-Af Amer) Pending BUN/Creatinine Ratio Pending Glucose Pending POC Glucose 94 70 Calcium Pending Phosphorus Pending Magnesium Pending 07/27/22 07/27/22 08:50 08:50 APTT Pending PTT Ratio Pending VBG pH Pending Sodium Potassium Chloride Carbon Dioxide Anion Gap BUN Creatinine Est Cr Clr Drug Dosing Est GFR ( Amer) Est GFR (Non-Af Amer) BUN/Creatinine Ratio Glucose POC Glucose Calcium Phosphorus Magnesium ECG Additional Comments: EKG 07/27/2022 Sinus bradycardia 55 bpm with septal Q waves V1 V2 unchanged from prior tracings no ST segment abnormality
[2022-07-27 09:23] LABS: Partial Thromboplastin Ratio 1.5; Partial Thromboplastin Time 40.7 Seconds (21.0-31.0)
--- NOTE | 2022-07-27 09:31 | Hospitalist Progress Note ---
Date of Service July 27, 2022 Assessment & Plan (1) DKA (diabetic ketoacidosis): Plan DKA possibly precipitated due to Infection Patient also reports some dietary indiscretion during holidays and also reports being on prednisone for gout flare Current A1c 10.7% H/O DM II, diabetic retinopathy, diabetic peripheral neuropathy --Chest CT:Unremarkable evaluation of the chest. Thyromegaly with tiny thyroid nodules, as above. --CT ABD: No acute intra-abdominal or intrapelvic abnormality. No bowel obstruction or bowel wall thickening. No urolith or hydronephrosis. Prostatomegaly with urinary bladder distention. --Blood cultures - negative in 48 hrs --Anion gap closed --IV Insulin>> transition to Insulin SQ Continue IV fluids Monitor and replace electrolytes as needed Monitor blood glucose levels Advance diet as tolerated Appreciate glycemic pharmacist help Influenza A Acute bronchitis secondary as above H/O Asthma CT chest as above procalcitonin negative Continue Tamiflu Empirically on doxycycline Type 2 NSTEMI in setting of demand ischemia Likely demand ischemia secondary to above H/O CAD, CABG X 5 ECHO: Moderate concentric LVH. Very mild hypokinesis of the inferior and septal apex with otherwise normal wall motion. Grade 1 diastolic dysfunction. Continued IV heparin, switch back to xarelto today 07/27 Also on nitroglycerin - switch to isosorbide mononitrate Start lisinopril Appreciate cardiology input Continue aspirin, metoprolol, statin, Zetia Started on lisinopril and isosorbide mononitrate H/O Multinodular goiter TSH low T4 normal May need follow-up as outpatient Prostatomegaly Monitor for any urinary retention Bladder scan as needed Gout Continue allopurinol CKD III Monitor renal function Avoid nephrotoxic agents as able H/O multiple sclerosis MUGS Polymyalgia rheumatica DVT Px: IV Heparin Code Status : DNR/DNI Admission and Anticipated Discharge Date Admission Date: July 25, 2022 Subjective Patient seen in follow-up chest pain, elevated troponin, DKA, influenza A Currently sitting up in bed, in no acute distress, resting Continues to have some chest discomfort however reports feeling much better Blood sugar levels improved as well No significant shortness of breath Has some cough, small amount of white sputum headache overnight Denies any nausea, vomiting, abdominal pain, dizziness No other complaints Will switch to Xarelto today from IV heparin. Review of Systems Review of Systems: All systems reviewed & are unremarkable except as noted in Subjective Physical Exam Physical Exam: General Appearance: Moderately built and nourished, no apparent distress Head: normocephalic, Atraumatic Eyes: normal inspection, EOMI Neck: supple, Trachea midline Respiratory/Chest: Normal breath sounds, CTA, No accessory muscle use Cardiovascular: S1, S2, No murmur Abdomen/GI: Soft, abdomen distended, mild soreness on palpation, Bowel sounds present Extremities/Musculoskeletal: normal inspection, Trace edema Neurologic/Psych: AAOX3, speech fluent, no facial asymmetry, moves extremities Skin: normal color, warm Results & Data Results & Data ([facility]) Vital Signs (Past 12 Hours) Vital Signs Temp Pulse Pulse Resp BP Pulse Ox O2 Del Method 07/27/22 07:43 50 L 07/27/22 07:08 36.6 C 65 18 144/67 H 95 Room Air 07/27/22 03:14 36.5 C 62 18 114/64 95 Room Air 07/26/22 22:50 36.6 C 62 18 114/57 L 95 Room Air Laboratory Results 07/27/22 07/27/22 07/27/22 Range/Units 12:11 08:50 08:50 APTT 40.7 H (21.0-31.0) Seconds PTT Ratio 1.5 VBG pH 7.35 L (7.36-7.41) Sodium (136-145) mmol/L Potassium (3.5-5.1) mmol/L Chloride (98-107) mmol/L Carbon Dioxide (21-32) mmol/L Anion Gap (3-11) BUN (6-23) mg/dl Creatinine (0.6-1.4) mg/dl Est Cr Clr Drug Dosing ml/min Est GFR ( Amer) ml/min Est GFR (Non-Af Amer) ml/min BUN/Creatinine Ratio (10-20) Glucose (70-99(Fasting)) mg/dl POC Glucose 140 H (70-99) mg/dl Calcium (8.5-10.1) mg/dl Phosphorus (2.5-4.9) mg/dl Magnesium (1.7-2.4) mg/dl 07/27/22 07/27/22 07/27/22 Range/Units 08:50 07:43 00:58 APTT (21.0-31.0) Seconds PTT Ratio VBG pH (7.36-7.41) Sodium 141 (136-145) mmol/L Potassium 3.7 (3.5-5.1) mmol/L Chloride 112 H (98-107) mmol/L Carbon Dioxide 21 (21-32) mmol/L Anion Gap 8 (3-11) BUN 30 H (6-23) mg/dl Creatinine 1.31 D (0.6-1.4) mg/dl Est Cr Clr Drug Dosing 52.6 ml/min Est GFR ( Amer) 62.6 ml/min Est GFR (Non-Af Amer) 54.0 ml/min BUN/Creatinine Ratio 22.9 H (10-20) Glucose 101 H (70-99(Fasting)) mg/dl POC Glucose 70 94 (70-99) mg/dl Calcium 7.8 L (8.5-10.1) mg/dl Phosphorus 3.7 (2.5-4.9) mg/dl Magnesium 1.8 (1.7-2.4) mg/dl 07/26/22 07/26/22 Range/Units 20:22 16:21 APTT (21.0-31.0) Seconds PTT Ratio VBG pH (7.36-7.41) Sodium (136-145) mmol/L Potassium (3.5-5.1) mmol/L Chloride (98-107) mmol/L Carbon Dioxide (21-32) mmol/L Anion Gap (3-11) BUN (6-23) mg/dl Creatinine (0.6-1.4) mg/dl Est Cr Clr Drug Dosing ml/min Est GFR ( Amer) ml/min Est GFR (Non-Af Amer) ml/min BUN/Creatinine Ratio (10-20) Glucose (70-99(Fasting)) mg/dl POC Glucose 91 103 H (70-99) mg/dl Calcium (8.5-10.1) mg/dl Phosphorus (2.5-4.9) mg/dl Magnesium (1.7-2.4) mg/dl Medications Administered Current Inpatient Medications Acetaminophen (Acetaminophen 325 Mg Tab) 650 mg PO Q4H PRN PRN Reason: Pain or Fever Stop: 08/24/22 02:00 Last Admin: 07/27/22 00:52 Dose: 650 mg Al Hydrox/Mg Hydrox/Simethicone (Aluminum/Magnesium Susp 30 Ml Udc) 15 ml PO Q4H PRN PRN Reason: Dyspepsia Stop: 08/24/22 02:00 Allopurinol (Allopurinol 100 Mg Tab) 200 mg PO DAILY [facility] Stop: 08/24/22 08:59 Last Admin: 07/26/22 09:27 Dose: 200 mg Aspirin (Aspirin 81 Mg Ectab) 81 mg PO DAILY [facility] Stop: 08/24/22 08:59 Last Admin: 07/26/22 09:28 Dose: 81 mg Atorvastatin Calcium (Atorvastatin 40 Mg Tab) [facility] Stop: 08/24/22 08:59 Last Admin: 07/26/22 09:28 Dose: 80 mg Dextromethorphan Polymer Complex (Dextromethorphan Polymr Complx 30 Mg/5 Ml Udp) 30 mg PO Q12H PRN PRN Reason: Cough Stop: 08/24/22 12:32 Last Admin: 07/26/22 21:27 Dose: 30 mg Dextrose (Dextrose 50% 50 Ml Syringe) 25 - 50 ml IV UD PRN; Protocol PRN Reason: Hypoglycemia Protocol Stop: 08/24/22 03:44 Doxycycline Hyclate (Doxycycline Hyclate 100 Mg Cap) 100 mg PO BID [facility] Stop: 08/01/22 20:59 Last Admin: 07/26/22 20:08 Dose: 100 mg Ezetimibe (Ezetimibe 10 Mg Tablet) 10 [facility] Stop: 08/24/22 08:59 Last Admin: 07/26/22 09:28 Dose: 10 mg Glucagon (Glucagon For Inj 1 Mg Vial) 1 mg IM UD PRN; Protocol PRN Reason: Hypoglycemia Protocol Stop: 08/24/22 03:44 Glucose (Glucose 40% Gel 15 Gm Tube) 15 - 30 gm PO UD PRN; Protocol PRN Reason: Hypoglycemia Protocol Stop: 08/24/22 03:44 Glucose (Glucose 10 Tab/Tube) 4 - 8 tab PO UD PRN; Protocol PRN Reason: Hypoglycemia Protocol Stop: 08/24/22 03:44 Heparin Sodium/Dextrose (Heparin Sodium/Dextrose) 25,000 units in 500 mls @ 19 mls/hr IV .Q24H [facility]; Protocol Stop: 08/24/22 00:59 Last Admin: 07/27/22 00:53 Dose: 950 units/hr, 19 mls/hr Famotidine 20 mg/ Syringe 5 mls @ 2.5 mls/min IV BID [facility] Stop: 08/24/22 08:59 Last Admin: 07/26/22 20:15 Dose: 2.5 mls/min Sodium Chloride (Nss 1000ml) 1,000 mls @ 80 mls/hr IV .[id number] [facility] Stop: 08/25/22 15:29 Last Admin: 07/27/22 02:04 Dose: 80 mls/hr Insulin Aspart (Insulin Aspart Per Unit) 0 units SC ACHS [facility]; Protocol Stop: 08/24/22 12:19 Last Admin: 07/26/22 20:37 Dose: 3 units Insulin Glargine (Lantus Per Unit Charge) 30 units SQ BID [facility]; Protocol Stop: 08/25/22 20:59 Last Admin: 07/26/22 20:36 Dose: 30 units Isosorbide Mononitrate (Isosorbide [place] Extended Rel 60 Mg Tabcr) 60 mg PO QAM [facility] Stop: 08/25/22 10:59 Last Admin: 07/26/22 11:35 Dose: 60 mg Lisinopril (Lisinopril 2.5 Mg Tab) 2.5 mg PO BID [facility] Stop: 08/25/22 20:59 Last Admin: 07/26/22 20:08 Dose: 2.5 mg Magnesium Hydroxide (Magnesium Hydroxide Susp 30 Ml Udc) 30 ml PO Q12H PRN PRN Reason: Constipation Stop: 08/24/22 02:00 Metoprolol Tartrate (Metoprolol Tartrate 50 Mg Tab) 50 mg PO BID [facility] Stop: 08/24/22 08:59 Last Admin: 07/26/22 20:09 Dose: 50 mg Miscellaneous (Carbohydrates For Hypoglycemia ) 15 - 30 gm PO UD PRN PRN Reason: Hypoglycemia Treatment Stop: 08/24/22 03:44 Miscellaneous Information (Pharmacy Glycemic Mgmt Consult) 1 each N/A UD PRN PRN Reason: Consult Stop: 08/24/22 01:56 Nitroglycerin (Nitroglycerin Sl 0.4 Mg/Tab Tab) 0.4 mg SL PRN PRN PRN Reason: Chest Pain Stop: 08/24/22 02:09 Ondansetron HCl (Ondansetron Inj 2 Mg/Ml 2 Ml Vial) 4 mg IV Q6H PRN PRN Reason: Nausea Stop: 08/24/22 02:00 Oseltamivir Phosphate (Oseltamivir Phosphate Susp 30 Mg/5 Ml Udp) 30 mg PO BID [facility]; Protocol Stop: 07/30/22 08:59 Last Admin: 07/26/22 20:15 Dose: 30 mg Polyethylene Glycol (Polyethylene (Miralax) 17 Gm Pack) 17 gm PO DAILY PRN PRN Reason: Constipation Stop: 08/24/22 02:00
[2022-07-27 09:48] LABS: BUN Creatinine Ratio 22.9 (10-20); Calcium 7.8 mg/dl (8.5-10.1); Creatinine Clr Calc Pharmacy 52.6 ml/min; Est GFR (African American) 62.6 ml/min; Magnesium 1.8 mg/dl (1.7-2.4); Phosphorus 3.7 mg/dl (2.5-4.9); Potassium 3.7 mmol/L (3.5-5.1)
[2022-07-27] MEDS: DOXYCYCLINE HYCLATE 100 MG CAP PO SCH ×2 (09:56→21:10)
[2022-07-27] MEDS: ATORVASTATIN 40 MG TAB PO SCH (09:57)
[2022-07-27] MEDS: ASPIRIN 81 MG ECTAB PO SCH (09:57)
[2022-07-27] MEDS: METOPROLOL TARTRATE 50 MG TAB PO SCH ×2 (09:57→21:11)
[2022-07-27] MEDS: EZETIMIBE 10 MG TABLET PO SCH (09:58)
[2022-07-27] MEDS: allopurinoL 100 MG TAB PO SCH (09:58)
[2022-07-27] MEDS: ISOSORBIDE MONO EXTENDED REL 60 MG TABCR PO SCH (09:59)
[2022-07-27] MEDS: lisinopril 2.5 MG TAB PO SCH ×2 (10:00→21:11)
[2022-07-27] MEDS: INSULIN ASPART PER UNIT SC SCH ×4 (10:16→21:02)
[2022-07-27] MEDS: FAMOTIDINE 20 MG in SYRINGE 3 ML IV SCH ×2 (10:19→21:09)
[2022-07-27] MEDS: OSELTAMIVIR PHOSPHATE SUSP 30 MG/5 ML UDP PO SCH ×2 (10:19→21:09)
[2022-07-27] MEDS: DEXTROMETHORPHAN POLYMR COMPLX 30 MG/5 ML UDP PO PRN (10:20)
[2022-07-27] MEDS ORDERED: LANTUS PER UNIT CHARGE SQ ONE (12:30)
--- NOTE | 2022-07-27 14:27 | Pharmacy Report ---
Pharmacy Glycemic Short Note 2 - Date of Service July 27, 2022 - Glycemic Short BSG Results (Last 24 hours): 07/26/22 07/26/22 07/27/22 16:21 20:22 00:58 Glucose POC Glucose 103 H 91 94 07/27/22 07/27/22 07/27/22 07:43 08:50 12:11 Glucose 101 H POC Glucose 70 140 H OUTPATIENT ANTIDIABETIC REGIMEN: * Lantus 42 units SC BID * Metformin ER 1000 mg PO AM * Jardiance 25 mg PO AM * HbA1c: 10.7% (07/25/22) ASSESSMENT: 07/27/22: * Patient received 90 units of insulin yesterday, 72 were basal, fasting BSG 70, held basal this AM and started at lunch at reduced dose to prevent hypoglycemia. * Continue CF/CR at this time. 07/26/22: * Mr Hurst was successfully transitioned off of the insulin gtt yesterday afternoon. * BSGs have been below goal today, so will reduce Lantus beginning with PM dose today. NovoLog parameters have also been loosened. * Will continue to follow and adjust regimen as indicated. 07/25 * 71 yo M admitted secondary to DKA. Pharmacy has been consulted to assist with inpatient glycemic management. * Initial labs: Serum BSG 661, Anion Gap 22, CO2 13, SCr 2.02, K 4.5, VBG pH 7.31. * Received 1 L NSS bolus in ED. Started on insulin drip with initial bolus of 8.9 units with drip starting at 8.9 units/hr. * Fluids changed to NSS + 20 KCl at 125 cc/hr. * BSGs trending down: [phone] mg/dL. * Fluids changed to D5 1/2 NS + 20 KCl once BSG reached goal of 150-250. * Most recent labs: Serum BSG 200, Anion Gap 9, CO2 20, SCr 1.47, K 4.4. * Gap is closed at this time and acidosis is resolved. * Tightened goal BSG range to 110-180 mg/dL. Hoping to get drip rate below 3- 4 units/hr prior to discontinuing it. * Gave home dose of Lantus this morning to overlap with drip and help with transition. PLAN FOR INPATIENT GLYCEMIC CONTROL: * Hold outpatient oral diabetes medications * Basal insulin - decrease * Lantus 20 units BID * Bolus insulin * NovoLog per scale ACHS or Q6hrs while NPO * Goal Range: Low 110 mg/dL - High 140 mg/dL * Correction Factor: 20 mg/dL/unit * Nutritional / Prandial insulin per carb ratio of 1 unit per 6 grams CHO consumed
[2022-07-27] MEDS ORDERED: RIVAROXABAN 20 MG TAB PO SCH (17:30)
[2022-07-27] MEDS: LANTUS PER UNIT CHARGE SQ SCH (21:09)
--- NOTE | 2022-07-28 05:09 | Electrocardiogram Report ---
Test Reason : Blood Pressure : / mmHG Vent. Rate : 055 BPM Atrial Rate : 055 BPM P-R Int : 206 ms QRS Dur : 108 ms QT Int : 470 ms P-R-T Axes : 039 044 074 degrees QTc Int : 449 ms Sinus bradycardia Septal infarct , age undetermined Nonspecific T wave abnormality Abnormal ECG When compared with ECG of 26-JUL-2022 14:24, No significant change was found Confirmed by Jesus Hyde ([id number]) on 07/28/2022 5:09:24 AM Referred By: REFERRED SELF Confirmed By:Jesus Hyde
[2022-07-28 05:31] LABS: Hematocrit (blood only) 44.6 % (40.1-51.0); Hemoglobin 14.8 g/dl (14.0-18.0); Mean Corpuscular Hemoglobin 31.1 pg (25.0-34.0); Mean Corpuscular Hgb Conc 33.2 g/dL (32.0-36.0); Mean Corpuscular Volume 93.7 fL (80.0-100.0); Mean Platelet Volume 9.6 fL (9.4-12.4); Platelet Count 217 K/uL (130-400); RDW Coefficient of Variation 14.3 % (11.5-14.5); RDW Standard Deviation 49.4 fL (36.4-46.3); Red Blood Count 4.76 M/uL (4.63-6.08); White Blood Count 8.37 K/ul (4.8-10.8)
[2022-07-28 05:47] LABS: Partial Thromboplastin Ratio 1.1; Partial Thromboplastin Time 30.8 Seconds (21.0-31.0)
[2022-07-28 05:58] LABS: BUN Creatinine Ratio 18.1 (10-20); Calcium 8.2 mg/dl (8.5-10.1); Creatinine Clr Calc Pharmacy 42.9 ml/min; Est GFR (African American) 49.2 ml/min; Est GFR (Non-African American) 42.4 ml/min; Magnesium 1.9 mg/dl (1.7-2.4); Phosphorus 3.7 mg/dl (2.5-4.9); Potassium 4.2 mmol/L (3.5-5.1)
[2022-07-28] MEDS: ACETAMINOPHEN 325 MG TAB PO PRN (08:14)
[2022-07-28] MEDS: oxyCODONE HCL IR 5 MG TAB (IMMEDIATE RELEASE) PO PRN ×2 (08:44→18:31)
[2022-07-28] MEDS: DOXYCYCLINE HYCLATE 100 MG CAP PO SCH ×2 (08:46→20:46)
[2022-07-28] MEDS: METOPROLOL TARTRATE 50 MG TAB PO SCH ×2 (08:47→20:48)
[2022-07-28] MEDS: ASPIRIN 81 MG ECTAB PO SCH (08:47)
[2022-07-28] MEDS: lisinopril 2.5 MG TAB PO SCH ×2 (08:47→20:46)
[2022-07-28] MEDS: EZETIMIBE 10 MG TABLET PO SCH (08:47)
[2022-07-28] MEDS: allopurinoL 100 MG TAB PO SCH (08:47)
[2022-07-28] MEDS: ATORVASTATIN 40 MG TAB PO SCH (08:47)
[2022-07-28] MEDS: ISOSORBIDE MONO EXTENDED REL 60 MG TABCR PO SCH (08:48)
[2022-07-28] MEDS: OSELTAMIVIR PHOSPHATE SUSP 30 MG/5 ML UDP PO SCH ×2 (08:51→20:47)
[2022-07-28] MEDS: FAMOTIDINE 20 MG in SYRINGE 3 ML IV SCH ×2 (08:52→21:13)
[2022-07-28] MEDS: INSULIN ASPART PER UNIT SC SCH ×4 (09:01→20:36)
[2022-07-28] MEDS: LANTUS PER UNIT CHARGE SQ SCH ×2 (09:01→20:38)
[2022-07-28] MEDS ORDERED: PERFLUTREN LIPID MICROSPHERE (DEFINITY) IV ONE (09:38)
--- NOTE | 2022-07-28 09:47 | Cardiology Progress Note ---
Date of Service July 28, 2022 Assessment & Plan (1) Elevated troponin: (2) DKA (diabetic ketoacidosis): (3) CKD (chronic kidney disease): (4) Influenza A: Plan Complex 71-year-old male status post coronary bypass grafting 08/19/2021 after non-ST elevation myocardial infarction multivessel coronary disease discerned. Patient with chronic stable angina pectoris, hypertension hyperlipidemia Now presents with multifactorial poor decline in association with influenza A, diabetic ketoacidosis. He had associated symptoms of searing pain across abdomen and chest worse with cough with focal tenderness currently present. Troponins are elevated reflecting acute illness, and demand based ischemia/non- ST segment elevation myocardial infarction. Currently asymptomatic except tender to palpation and a wheezy cough EKGs without acute ischemic changes. Echocardiogram improved from prior evaluations with normal to hyperdynamic LV function with only subtle apical inferior and septal hypokinesis 1. Elevated troponin/non-ST segment elevation myocardial infarction demand based: 2. DKA with acute renal insufficiency 3. Influenza A with bronchiolitis, bronchospasm, cough 07/28/2021 Patient is morning with atypical chest discomfort but persistent for several hours. EKG without acute changes. Troponin appears to be trending downward as per prior elevation Echocardiogram will be ordered to assess LV wall motion Hold Xarelto CT scan ordered due to severe headache Will likely warrant increase in lisinopril dosing given persistent blood pressure Studies to be reviewed Admission and Anticipated Discharge Date Admission Date: July 25, 2022 Subjective Patient seen and examined, chart, medications, telemetry reviewed. Patient with focal apical chest pain. Pinpoint without respiratory component. No diaphoresis tachypalpitations orthopnea. Severe headache as well EKG without acute changes Troponin without focal increase with trending down from recent elevation Physical Exam Constitutional: WD/WN, vitals as above no acute distress Eyes: PERRL, conjunctivae normal, anicteric sclerae ENMT: external ear and nose normal, oropharynx normal Neck: trachea midline, no thyromegaly Respiratory: + audible wheezes (Anteriorly bilaterally with cough or deep inspiration) Cardiovascular: Rate/Rhythm: regular rate and regular rhythm Heart Sounds: normal S1 and normal S2; no murmur and no cardiac rub Vessels: no JVD Extremities: + pedal edema (Trace) Gastrointestinal (Abdomen): normal bowel sounds, soft, nontender, no hepatosplenomegaly Musculoskeletal: no cyanosis or clubbing, extremities motor strength 5/5 Results & Data ([facility]) Vital Signs (Past 12 Hours) Vital Signs Temp Pulse Pulse Resp BP Pulse Ox O2 Del Method 07/28/22 07:01 36.8 C 68 18 154/89 H 96 Room Air 07/28/22 03:02 36.6 C 69 18 121/63 92 Room Air 07/28/22 00:00 82 07/27/22 23:06 36.7 C 78 18 132/70 96 Room Air Laboratory Results Laboratory Results - last 24 hr 07/27/22 07/27/22 07/27/22 08:50 12:11 16:52 WBC RBC Hgb Hct MCV MCH MCHC RDW Std Deviation RDW Coeff of Leo Plt Count MPV APTT PTT Ratio VBG pH Sodium 141 Potassium 3.7 Chloride 112 H Carbon Dioxide 21 Anion Gap 8 BUN 30 H Creatinine 1.31 D Est Cr Clr Drug Dosing 52.6 Est GFR ( Amer) 62.6 Est GFR (Non-Af Amer) 54.0 BUN/Creatinine Ratio 22.9 H Glucose 101 H POC Glucose 140 H 71 Calcium 7.8 L Phosphorus 3.7 Magnesium 1.8 Troponin I High Sens 07/27/22 07/28/22 07/28/22 20:07 05:23 05:23 WBC 8.37 RBC 4.76 Hgb 14.8 Hct 44.6 MCV 93.7 MCH 31.1 MCHC 33.2 RDW Std Deviation 49.4 H RDW Coeff of Leo 14.3 Plt Count 217 MPV 9.6 APTT PTT Ratio VBG pH Sodium 139 Potassium 4.2 Chloride 111 H Carbon Dioxide 24 Anion Gap 4 BUN 29 H Creatinine 1.60 H Est Cr Clr Drug Dosing 42.9 Est GFR ( Amer) 49.2 Est GFR (Non-Af Amer) 42.4 BUN/Creatinine Ratio 18.1 Glucose 167 H POC Glucose 105 H Calcium 8.2 L Phosphorus 3.7 Magnesium 1.9 Troponin I High Sens 07/28/22 07/28/22 07/28/22 05:23 05:23 07:59 WBC RBC Hgb Hct MCV MCH MCHC RDW Std Deviation RDW Coeff of Leo Plt Count MPV APTT 30.8 PTT Ratio 1.1 VBG pH 7.32 L Sodium Potassium Chloride Carbon Dioxide Anion Gap BUN Creatinine Est Cr Clr Drug Dosing Est GFR ( Amer) Est GFR (Non-Af Amer) BUN/Creatinine Ratio Glucose POC Glucose 141 H Calcium Phosphorus Magnesium Troponin I High Sens 07/28/22 08:31 WBC RBC Hgb Hct MCV MCH MCHC RDW Std Deviation RDW Coeff of Leo Plt Count MPV APTT PTT Ratio VBG pH Sodium Potassium Chloride Carbon Dioxide Anion Gap BUN Creatinine Est Cr Clr Drug Dosing Est GFR ( Amer) Est GFR (Non-Af Amer) BUN/Creatinine Ratio Glucose POC Glucose Calcium Phosphorus Magnesium Troponin I High Sens 747.8 H*
--- NOTE | 2022-07-28 10:27 | CT Scan Report ---
HEAD CT NONCONTRAST CT DOSE: 614.27 mGy.cm HISTORY: Headache, on anticoagulation TECHNIQUE: Multiaxial CT images of the head were performed without the use of intravenous contrast. A utomated exposure control was utilized for this study. A dose lowering technique was utilized adheri ng to the principles of ALARA. Comparison: Head CT 04/16/2019. Findings: Partial opacification of the ethmoid air cells. Trace fluid level within the right maxillar y sinus. The mastoid air cells are clear. The calvarium and skull base are intact. The ventricles and sulci are within normal limits. There is no mass, hematoma, midline shift, or acute infarct. Impression: No acute intracranial abnormality. ACT 112: Negative or not required by law. Electronically signed by: Vance Prieto M.D. 07/28/2022 10:25 AM
--- NOTE | 2022-07-28 12:00 | Hospitalist Progress Note ---
Date of Service July 28, 2022 Assessment & Plan (1) DKA (diabetic ketoacidosis): Plan DKA possibly precipitated due to Infection Patient also reports some dietary indiscretion during holidays and also reports being on prednisone for gout flare Current A1c 10.7% H/O DM II, diabetic retinopathy, diabetic peripheral neuropathy --Chest CT:Unremarkable evaluation of the chest. Thyromegaly with tiny thyroid nodules, as above. --CT ABD: No acute intra-abdominal or intrapelvic abnormality. No bowel obstruction or bowel wall thickening. No urolith or hydronephrosis. Prostatomegaly with urinary bladder distention. --Blood cultures - negative in 48 hrs --Anion gap closed --IV Insulin>> transition to Insulin SQ Continue IV fluids Monitor and replace electrolytes as needed Monitor blood glucose levels Advance diet as tolerated Appreciate glycemic pharmacist help Influenza A Acute bronchitis secondary as above H/O Asthma CT chest as above procalcitonin negative Continue Tamiflu Empirically on doxycycline Type 2 NSTEMI in setting of demand ischemia Likely demand ischemia secondary to above H/O CAD, CABG X 5 ECHO: Moderate concentric LVH. Very mild hypokinesis of the inferior and septal apex with otherwise normal wall motion. Grade 1 diastolic dysfunction. Continued IV heparin, switched back to xarelto on 07/27, now on hold Also on nitroglycerin - switch to isosorbide mononitrate Started lisinopril Appreciate cardiology input Continue aspirin, metoprolol, statin, Zetia Started on lisinopril and isosorbide mononitrate Recurrent chest pain 07/28 -patient reports recurrent left-sided chest pain ECG obtained this morning, troponin at 700s, which is lower from previous values Seen by cardiology, echocardiogram ordered DORANTES -Per patient new onset of severe headache -Given patient being on IV heparin, Xarelto, obtained head CT, and held xarelto -CT head negative for any acute abnormality H/O Multinodular goiter TSH low T4 normal May need follow-up as outpatient Prostatomegaly Monitor for any urinary retention Bladder scan as needed Gout Continue allopurinol CKD III Monitor renal function Avoid nephrotoxic agents as able H/O multiple sclerosis MUGS Polymyalgia rheumatica DVT Px: was on IV Heparin -> xarelto, now on hold Code Status : DNR/DNI Admission and Anticipated Discharge Date Admission Date: July 25, 2022 Subjective Patient seen in follow-up chest pain, elevated troponin, DKA, influenza A Currently sitting up in bed, in no acute distress However overnight complained of severe headache again, also complains of left- sided chest pain No significant shortness of breath Has some cough, small amount of white sputum Denies any nausea, vomiting, abdominal pain, dizziness No other complaints Given patient being on IV heparin, Xarelto, new onset of severe headache, obtain head CT Given chest pain, history of CAD, obtain ECG, troponin, will further discuss with cardiology Review of Systems Review of Systems: All systems reviewed & are unremarkable except as noted in Subjective Physical Exam Physical Exam: General Appearance: Moderately built and nourished, no apparent distress Head: normocephalic, Atraumatic Eyes: normal inspection, EOMI Neck: supple, Trachea midline Respiratory/Chest: Normal breath sounds, CTA, No accessory muscle use, +cough Cardiovascular: S1, S2, No murmur Abdomen/GI: Soft, abdomen distended, mild soreness on palpation, Bowel sounds present Extremities/Musculoskeletal: normal inspection, Trace edema Neurologic/Psych: AAOX3, speech fluent, no facial asymmetry, moves extremities Skin: normal color, warm Results & Data Results & Data ([facility]) Vital Signs (Past 12 Hours) Vital Signs Temp Pulse Pulse Resp BP Pulse Ox O2 Del Method 07/28/22 08:00 Room Air 07/28/22 07:00 70 07/28/22 07:01 36.8 C 68 18 154/89 H 96 Room Air 07/28/22 03:02 36.6 C 69 18 121/63 92 Room Air 07/28/22 00:00 82 Laboratory Results 07/28/22 07/28/22 07/28/22 Range/Units 11:48 08:31 07:59 WBC (4.8-10.8) K/ul RBC (4.63-6.08) M/uL Hgb (14.0-18.0) g/dl Hct (40.1-51.0) % MCV (80.0-100.0) fL MCH (25.0-34.0) pg MCHC (32.0-36.0) g/dL RDW Std Deviation (36.4-46.3) fL RDW Coeff of Leo (11.5-14.5) % Plt Count (130-400) K/uL MPV (9.4-12.4) fL APTT (21.0-31.0) Seconds PTT Ratio VBG pH (7.36-7.41) Sodium (136-145) mmol/L Potassium (3.5-5.1) mmol/L Chloride (98-107) mmol/L Carbon Dioxide (21-32) mmol/L Anion Gap (3-11) BUN (6-23) mg/dl Creatinine (0.6-1.4) mg/dl Est Cr Clr Drug Dosing ml/min Est GFR ( Amer) ml/min Est GFR (Non-Af Amer) ml/min BUN/Creatinine Ratio (10-20) Glucose (70-99(Fasting)) mg/dl POC Glucose 163 H 141 H (70-99) mg/dl Calcium (8.5-10.1) mg/dl Phosphorus (2.5-4.9) mg/dl Magnesium (1.7-2.4) mg/dl Troponin I High Sens 747.8 H* (0-20) pg/ml 07/28/22 07/28/22 07/28/22 Range/Units 05:23 05:23 05:23 WBC 8.37 (4.8-10.8) K/ul RBC 4.76 (4.63-6.08) M/uL Hgb 14.8 (14.0-18.0) g/dl Hct 44.6 (40.1-51.0) % MCV 93.7 (80.0-100.0) fL MCH 31.1 (25.0-34.0) pg MCHC 33.2 (32.0-36.0) g/dL RDW Std Deviation 49.4 H (36.4-46.3) fL RDW Coeff of Leo 14.3 (11.5-14.5) % Plt Count 217 (130-400) K/uL MPV 9.6 (9.4-12.4) fL APTT 30.8 (21.0-31.0) Seconds PTT Ratio 1.1 VBG pH 7.32 L (7.36-7.41) Sodium (136-145) mmol/L Potassium (3.5-5.1) mmol/L Chloride (98-107) mmol/L Carbon Dioxide (21-32) mmol/L Anion Gap (3-11) BUN (6-23) mg/dl Creatinine (0.6-1.4) mg/dl Est Cr Clr Drug Dosing ml/min Est GFR ( Amer) ml/min Est GFR (Non-Af Amer) ml/min BUN/Creatinine Ratio (10-20) Glucose (70-99(Fasting)) mg/dl POC Glucose (70-99) mg/dl Calcium (8.5-10.1) mg/dl Phosphorus (2.5-4.9) mg/dl Magnesium (1.7-2.4) mg/dl Troponin I High Sens (0-20) pg/ml 07/28/22 07/27/22 07/27/22 Range/Units 05:23 20:07 16:52 WBC (4.8-10.8) K/ul RBC (4.63-6.08) M/uL Hgb (14.0-18.0) g/dl Hct (40.1-51.0) % MCV (80.0-100.0) fL MCH (25.0-34.0) pg MCHC (32.0-36.0) g/dL RDW Std Deviation (36.4-46.3) fL RDW Coeff of Leo (11.5-14.5) % Plt Count (130-400) K/uL MPV (9.4-12.4) fL APTT (21.0-31.0) Seconds PTT Ratio VBG pH (7.36-7.41) Sodium 139 (136-145) mmol/L Potassium 4.2 (3.5-5.1) mmol/L Chloride 111 H (98-107) mmol/L Carbon Dioxide 24 (21-32) mmol/L Anion Gap 4 (3-11) BUN 29 H (6-23) mg/dl Creatinine 1.60 H (0.6-1.4) mg/dl Est Cr Clr Drug Dosing 42.9 ml/min Est GFR ( Amer) 49.2 ml/min Est GFR (Non-Af Amer) 42.4 ml/min BUN/Creatinine Ratio 18.1 (10-20) Glucose 167 H (70-99(Fasting)) mg/dl POC Glucose 105 H 71 (70-99) mg/dl Calcium 8.2 L (8.5-10.1) mg/dl Phosphorus 3.7 (2.5-4.9) mg/dl Magnesium 1.9 (1.7-2.4) mg/dl Troponin I High Sens (0-20) pg/ml 07/27/22 Range/Units 12:11 WBC (4.8-10.8) K/ul RBC (4.63-6.08) M/uL Hgb (14.0-18.0) g/dl Hct (40.1-51.0) % MCV (80.0-100.0) fL MCH (25.0-34.0) pg MCHC (32.0-36.0) g/dL RDW Std Deviation (36.4-46.3) fL RDW Coeff of Leo (11.5-14.5) % Plt Count (130-400) K/uL MPV (9.4-12.4) fL APTT (21.0-31.0) Seconds PTT Ratio VBG pH (7.36-7.41) Sodium (136-145) mmol/L Potassium (3.5-5.1) mmol/L Chloride (98-107) mmol/L Carbon Dioxide (21-32) mmol/L Anion Gap (3-11) BUN (6-23) mg/dl Creatinine (0.6-1.4) mg/dl Est Cr Clr Drug Dosing ml/min Est GFR ( Amer) ml/min Est GFR (Non-Af Amer) ml/min BUN/Creatinine Ratio (10-20) Glucose (70-99(Fasting)) mg/dl POC Glucose 140 H (70-99) mg/dl Calcium (8.5-10.1) mg/dl Phosphorus (2.5-4.9) mg/dl Magnesium (1.7-2.4) mg/dl Troponin I High Sens (0-20) pg/ml Medications Administered Current Inpatient Medications Acetaminophen (Acetaminophen 325 Mg Tab) 650 mg PO Q4H PRN PRN Reason: Pain or Fever Stop: 08/24/22 02:00 Last Admin: 07/28/22 08:14 Dose: 650 mg Al Hydrox/Mg Hydrox/Simethicone (Aluminum/Magnesium Susp 30 Ml Udc) 15 ml PO Q4H PRN PRN Reason: Dyspepsia Stop: 08/24/22 02:00 Allopurinol (Allopurinol 100 Mg Tab) 200 mg PO DAILY [facility] Stop: 08/24/22 08:59 Last Admin: 07/28/22 08:47 Dose: 200 mg Aspirin (Aspirin 81 Mg Ectab) 81 mg PO DAILY [facility] Stop: 08/24/22 08:59 Last Admin: 07/28/22 08:47 Dose: 81 mg Atorvastatin Calcium (Atorvastatin 40 Mg Tab) 80 mg PO QAM [facility] Stop: 08/24/22 08:59 Last Admin: 07/28/22 08:47 Dose: 80 mg Dextromethorphan Polymer Complex (Dextromethorphan Polymr Complx 30 Mg/5 Ml Udp) 30 mg PO Q12H PRN PRN Reason: Cough Stop: 08/24/22 12:32 Last Admin: 07/27/22 10:20 Dose: 30 mg Dextrose (Dextrose 50% 50 Ml Syringe) 25 - 50 ml IV UD PRN; Protocol PRN Reason: Hypoglycemia Protocol Stop: 08/24/22 03:44 Doxycycline Hyclate (Doxycycline Hyclate 100 Mg Cap) 100 mg PO BID [facility] Stop: 08/01/22 20:59 Last Admin: 07/28/22 08:46 Dose: 100 mg Ezetimibe (Ezetimibe 10 Mg Tablet) 10 mg PO [facility] Stop: 08/24/22 08:59 Last Admin: 07/28/22 08:47 Dose: 10 mg Glucagon (Glucagon For Inj 1 Mg Vial) 1 mg IM UD PRN; Protocol PRN Reason: Hypoglycemia Protocol Stop: 08/24/22 03:44 Glucose (Glucose 40% Gel 15 Gm Tube) 15 - 30 gm PO UD PRN; Protocol PRN Reason: Hypoglycemia Protocol Stop: 08/24/22 03:44 Glucose (Glucose 10 Tab/Tube) 4 - 8 tab PO UD PRN; Protocol PRN Reason: Hypoglycemia Protocol Stop: 08/24/22 03:44 Famotidine 20 mg/ Syringe 5 mls @ 2.5 mls/min IV BID [facility] Stop: 08/24/22 08:59 Last Admin: 07/28/22 08:52 Dose: 2.5 mls/min Insulin Aspart (Insulin Aspart Per Unit) [facility]; Protocol Stop: 08/24/22 12:19 Last Admin: 07/28/22 09:01 Dose: 6 units Insulin Glargine (Lantus Per Unit Charge) 20 units SQ BID [facility]; Protocol Stop: 08/26/22 20:59 Last Admin: 07/28/22 09:01 Dose: 20 units Isosorbide Mononitrate (Isosorbide [place] Extended Rel 60 Mg Tabcr) 60 mg PO QAM [facility] Stop: 08/25/22 10:59 Last Admin: 07/28/22 08:48 Dose: 60 mg Lisinopril (Lisinopril 2.5 Mg Tab) 2.5 mg PO BID [facility] Stop: 08/25/22 20:59 Last Admin: 07/28/22 08:47 Dose: 2.5 mg Magnesium Hydroxide (Magnesium Hydroxide Susp 30 Ml Udc) 30 ml PO Q12H PRN PRN Reason: Constipation Stop: 08/24/22 02:00 Metoprolol Tartrate (Metoprolol Tartrate 50 Mg Tab) 50 mg PO BID [facility] Stop: 08/24/22 08:59 Last Admin: 07/28/22 08:47 Dose: 50 mg Miscellaneous (Carbohydrates For Hypoglycemia ) 15 - 30 gm PO UD PRN PRN Reason: Hypoglycemia Treatment Stop: 08/24/22 03:44 Miscellaneous Information (Pharmacy Glycemic Mgmt Consult) 1 each N/A UD PRN PRN Reason: Consult Stop: 08/24/22 01:56 Nitroglycerin (Nitroglycerin Sl 0.4 Mg/Tab Tab) 0.4 mg SL PRN PRN PRN Reason: Chest Pain Stop: 08/24/22 02:09 Ondansetron HCl (Ondansetron Inj 2 Mg/Ml 2 Ml Vial) 4 mg IV Q6H PRN PRN Reason: Nausea Stop: 08/24/22 02:00 Oseltamivir Phosphate (Oseltamivir Phosphate Susp 30 Mg/5 Ml Udp) 30 mg PO BID [facility]; Protocol Stop: 07/30/22 08:59 Last Admin: 07/28/22 08:51 Dose: 30 mg Oxycodone HCl (Oxycodone Hcl Ir 5 Mg Tab (Immediate Release)) 5 mg PO Q4H PRN PRN Reason: Pain Stop: 08/11/22 08:27 Last Admin: 07/28/22 08:44 Dose: 5 mg Polyethylene Glycol (Polyethylene (Miralax) 17 Gm Pack) 17 gm PO DAILY PRN PRN Reason: Constipation Stop: 08/24/22 02:00 Rivaroxaban (Rivaroxaban 20 Mg Tab) 20 mg PO 1730 [facility] Stop: 08/26/22 17:29 Last Admin: 07/27/22 18:21 Dose: 20 mg
--- NOTE | 2022-07-28 12:49 | Pharmacy Report ---
Pharmacy Glycemic Short Note 2 - Date of Service July 28, 2022 - Glycemic Short BSG Results (Last 24 hours): 07/27/22 07/27/22 07/28/22 16:52 20:07 05:23 Glucose 167 H POC Glucose 71 105 H 07/28/22 07/28/22 07:59 11:48 Glucose POC Glucose 141 H 163 H OUTPATIENT ANTIDIABETIC REGIMEN: * Lantus 42 units SC BID * Metformin ER 1000 mg PO AM * Jardiance 25 mg PO AM * HbA1c: 10.7% (07/25/22) ASSESSMENT: 07/28/22: * Fasting BSG above goal this morning. Lantus dose increased today, beginning with PM dose. * Novolog parameters appear to be appropriate, so no change at this time. 07/27 * Patient received 90 units of insulin yesterday, 72 were basal, fasting BSG 70, held basal this AM and started at lunch at reduced dose to prevent hypoglycemia. * Continue CF/CR at this time. 07/26 * Mr Hurst was successfully transitioned off of the insulin gtt yesterday afternoon. * BSGs have been below goal today, so will reduce Lantus beginning with PM dose today. NovoLog parameters have also been loosened. * Will continue to follow and adjust regimen as indicated. 07/25 * 71 yo M admitted secondary to DKA. Pharmacy has been consulted to assist with inpatient glycemic management. * Initial labs: Serum BSG 661, Anion Gap 22, CO2 13, SCr 2.02, K 4.5, VBG pH 7.31. * Received 1 L NSS bolus in ED. Started on insulin drip with initial bolus of 8.9 units with drip starting at 8.9 units/hr. * Fluids changed to NSS + 20 KCl at 125 cc/hr. * BSGs trending down: [phone] mg/dL. * Fluids changed to D5 1/2 NS + 20 KCl once BSG reached goal of 150-250. * Most recent labs: Serum BSG 200, Anion Gap 9, CO2 20, SCr 1.47, K 4.4. * Gap is closed at this time and acidosis is resolved. * Tightened goal BSG range to 110-180 mg/dL. Hoping to get drip rate below 3- 4 units/hr prior to discontinuing it. * Gave home dose of Lantus this morning to overlap with drip and help with transition. PLAN FOR INPATIENT GLYCEMIC CONTROL: * Hold outpatient oral diabetes medications * Basal insulin * Lantus 25 units BID * Bolus insulin * NovoLog per scale ACHS or Q6hrs while NPO * Goal Range: Low 110 mg/dL - High 140 mg/dL * Correction Factor: 20 mg/dL/unit * Nutritional / Prandial insulin per carb ratio of 1 unit per 6 grams CHO consumed
--- NOTE | 2022-07-28 16:00 | Electrocardiogram Report ---
Test Reason : Blood Pressure : / mmHG Vent. Rate : 074 BPM Atrial Rate : 074 BPM P-R Int : 214 ms QRS Dur : 082 ms QT Int : 388 ms P-R-T Axes : 023 025 070 degrees QTc Int : 430 ms Poor data quality, interpretation may be adversely affected Sinus rhythm with 1st degree A-V block Septal infarct (cited on or before 29-JAN-2022) Abnormal ECG When compared with ECG of 27-JUL-2022 05:03, No significant change was found Confirmed by Surendra Canela ([id number]) on 07/28/2022 4:00:09 PM Referred By: REFERRED SELF Confirmed By:Surendra Canela
[2022-07-28] MEDS: DEXTROMETHORPHAN POLYMR COMPLX 30 MG/5 ML UDP PO PRN (23:12)
[2022-07-29 07:09] LABS: Partial Thromboplastin Time 26.5 Seconds (21.0-31.0)
[2022-07-29] MEDS: allopurinoL 100 MG TAB PO SCH (08:37)
[2022-07-29] MEDS: oxyCODONE HCL IR 5 MG TAB (IMMEDIATE RELEASE) PO PRN (08:37)
[2022-07-29] MEDS: ATORVASTATIN 40 MG TAB PO SCH (08:38)
[2022-07-29] MEDS: lisinopril 2.5 MG TAB PO SCH ×2 (08:38→21:53)
[2022-07-29] MEDS: EZETIMIBE 10 MG TABLET PO SCH (08:38)
[2022-07-29] MEDS: ISOSORBIDE MONO EXTENDED REL 60 MG TABCR PO SCH (08:38)
[2022-07-29] MEDS: METOPROLOL TARTRATE 50 MG TAB PO SCH ×2 (08:38→21:54)
[2022-07-29] MEDS: OSELTAMIVIR PHOSPHATE SUSP 30 MG/5 ML UDP PO SCH ×2 (08:39→21:54)
[2022-07-29] MEDS: ASPIRIN 81 MG ECTAB PO SCH (08:39)
[2022-07-29] MEDS: DOXYCYCLINE HYCLATE 100 MG CAP PO SCH ×2 (08:44→21:52)
--- NOTE | 2022-07-29 09:04 | Hospitalist Progress Note ---
Date of Service July 29, 2022 Assessment & Plan (1) DKA (diabetic ketoacidosis): Plan DKA possibly precipitated due to Infection Patient also reports some dietary indiscretion during holidays and also reports being on prednisone for gout flare Current A1c 10.7% H/O DM II, diabetic retinopathy, diabetic peripheral neuropathy --Chest CT:Unremarkable evaluation of the chest. Thyromegaly with tiny thyroid nodules, as above. --CT ABD: No acute intra-abdominal or intrapelvic abnormality. No bowel obstruction or bowel wall thickening. No urolith or hydronephrosis. Prostatomegaly with urinary bladder distention. --Blood cultures - negative in 48 hrs --Anion gap closed --IV Insulin>> transition to Insulin SQ Continue IV fluids Monitor and replace electrolytes as needed Monitor blood glucose levels Advance diet as tolerated Appreciate glycemic pharmacist help Influenza A Acute bronchitis secondary as above H/O Asthma CT chest as above procalcitonin negative Continue Tamiflu Empirically on doxycycline Type 2 NSTEMI in setting of demand ischemia Likely demand ischemia secondary to above H/O CAD, CABG X 5 ECHO: Moderate concentric LVH. Very mild hypokinesis of the inferior and septal apex with otherwise normal wall motion. Grade 1 diastolic dysfunction. Continued IV heparin, switched back to xarelto on 07/27, now on hold Also on nitroglycerin - switch to isosorbide mononitrate Started lisinopril Appreciate cardiology input Continue aspirin, metoprolol, statin, Zetia Started on lisinopril and isosorbide mononitrate Recurrent chest pain 07/28 -patient reports recurrent left-sided chest pain ECG obtained this morning, troponin at 700s, which is lower from previous values Seen by cardiology, echocardiogram obtained Echo EF 65 to 70%. There is moderate concentric LVH. No regional wall motion abnormality noted. DORANTES -Per patient new onset of severe headache, now somewhat improved -Given patient being on IV heparin, Xarelto, obtained head CT, and held xarelto -CT head negative for any acute abnormality H/O Multinodular goiter TSH low T4 normal May need follow-up as outpatient Prostatomegaly Monitor for any urinary retention Bladder scan as needed Gout Continue allopurinol CKD III Monitor renal function Avoid nephrotoxic agents as able H/O multiple sclerosis MUGS Polymyalgia rheumatica DVT Px: was on IV Heparin -> xarelto, now on hold Code Status : DNR/DNI Admission and Anticipated Discharge Date Admission Date: July 25, 2022 Subjective Patient seen in follow-up chest pain, elevated troponin, DKA, influenza A Currently sitting up in bed, in no acute distress Continues to have DORANTES and some chest discomfort Continues to have cough No significant shortness of breath Denies any nausea, vomiting, abdominal pain, dizziness No other complaints Given patient being on IV heparin, Xarelto, new onset of severe headache, obtain head CT Given chest pain, history of CAD, obtain ECG, troponin, will further discuss with cardiology Review of Systems Review of Systems: All systems reviewed & are unremarkable except as noted in Subjective Physical Exam Physical Exam: General Appearance: Moderately built and nourished, no apparent distress Head: normocephalic, Atraumatic Eyes: normal inspection, EOMI Neck: supple, Trachea midline Respiratory/Chest: Normal breath sounds, CTA, No accessory muscle use, +cough Cardiovascular: S1, S2, No murmur Abdomen/GI: Soft, abdomen distended, mild soreness on palpation, Bowel sounds present Extremities/Musculoskeletal: normal inspection, Trace edema Neurologic/Psych: AAOX3, speech fluent, no facial asymmetry, moves extremities Skin: normal color, warm Results & Data Results & Data [facility]) Vital Signs (Past 12 Hours) Vital Signs Temp Pulse Pulse Resp BP Pulse Ox O2 Del Method 07/29/22 07:57 66 07/29/22 07:40 36.7 C 66 19 129/68 93 Room Air 07/29/22 02:55 36.7 C 70 18 141/82 H 95 Room Air 07/28/22 23:14 36.7 C 70 18 132/72 95 Room Air Medications Administered Current Inpatient Medications Acetaminophen (Acetaminophen 325 Mg Tab) 650 mg PO Q4H PRN PRN Reason: Pain or Fever Stop: 08/24/22 02:00 Last Admin: 07/28/22 08:14 Dose: 650 mg Al Hydrox/Mg Hydrox/Simethicone (Aluminum/Magnesium Susp 30 Ml Udc) 15 ml PO Q4H PRN PRN Reason: Dyspepsia Stop: 08/24/22 02:00 Allopurinol (Allopurinol 100 Mg Tab) 200 mg PO DAILY [facility] Stop: 08/24/22 08:59 Last Admin: 07/29/22 08:37 Dose: 200 mg Aspirin (Aspirin 81 Mg Ectab) 81 mg PO DAILY [facility] Stop: 08/24/22 08:59 Last Admin: 07/29/22 08:39 Dose: 81 mg Atorvastatin Calcium (Atorvastatin 40 Mg Tab) 80 mg PO QAM [facility] Stop: 08/24/22 08:59 Last Admin: 07/29/22 08:38 Dose: 80 mg Dextromethorphan Polymer Complex (Dextromethorphan Polymr Complx 30 Mg/5 Ml Udp) 30 mg PO Q12H PRN PRN Reason: Cough Stop: 08/24/22 12:32 Last Admin: 07/28/22 23:12 Dose: 30 mg Dextrose (Dextrose 50% 50 Ml Syringe) 25 - 50 ml IV UD PRN; Protocol PRN Reason: Hypoglycemia Protocol Stop: 08/24/22 03:44 Doxycycline Hyclate (Doxycycline Hyclate 100 Mg Cap) 100 mg PO BID [facility] Stop: 08/01/22 20:59 Last Admin: 07/29/22 08:44 Dose: 100 mg Ezetimibe (Ezetimibe 10 Mg Tablet) [facility] [place]: 08/24/22 08:59 Last Admin: 07/29/22 08:38 Dose: 10 mg Glucagon (Glucagon For Inj 1 Mg Vial) 1 mg IM UD PRN; Protocol PRN Reason: Hypoglycemia Protocol Stop: 08/24/22 03:44 Glucose (Glucose 40% Gel 15 Gm Tube) 15 - 30 gm PO UD PRN; Protocol PRN Reason: Hypoglycemia Protocol Stop: 08/24/22 03:44 Glucose (Glucose 10 Tab/Tube) 4 - 8 tab PO UD PRN; Protocol PRN Reason: Hypoglycemia Protocol Stop: 08/24/22 03:44 Famotidine 20 mg/ Syringe 5 mls @ 2.5 mls/min IV BID [facility] Stop: 08/24/22 08:59 Last Admin: 07/28/22 21:13 Dose: 2.5 mls/min Insulin Aspart (Insulin Aspart Per Unit) 0 units SC ACHS [facility]; Protocol Stop: 08/24/22 12:19 Last Admin: 07/28/22 20:36 Dose: 8 units Insulin Glargine (Lantus Per Unit Charge) 25 units SQ BID [facility]; Protocol Stop: 08/27/22 20:59 Last Admin: 07/28/22 20:38 Dose: 25 units Isosorbide Mononitrate (Isosorbide [place] Extended Rel 60 Mg Tabcr) 60 mg PO QAM [facility] Stop: 08/25/22 10:59 Last Admin: 07/29/22 08:38 Dose: 60 mg Lisinopril (Lisinopril 2.5 Mg Tab) 2.5 mg PO BID [facility] Stop: 08/25/22 20:59 Last Admin: 07/29/22 08:38 Dose: 2.5 mg Magnesium Hydroxide (Magnesium Hydroxide Susp 30 Ml Udc) 30 ml PO Q12H PRN PRN Reason: Constipation Stop: 08/24/22 02:00 Metoprolol Tartrate (Metoprolol Tartrate 50 Mg Tab) 50 mg PO BID [facility] Stop: 08/24/22 08:59 Last Admin: 07/29/22 08:38 Dose: 50 mg Miscellaneous (Carbohydrates For Hypoglycemia ) 15 - 30 gm PO UD PRN PRN Reason: Hypoglycemia Treatment Stop: 08/24/22 03:44 Miscellaneous Information (Pharmacy Glycemic Mgmt Consult) 1 each N/A UD PRN PRN Reason: Consult Stop: 08/24/22 01:56 Nitroglycerin (Nitroglycerin Sl 0.4 Mg/Tab Tab) 0.4 mg SL PRN PRN PRN Reason: Chest Pain Stop: 08/24/22 02:09 Ondansetron HCl (Ondansetron Inj 2 Mg/Ml 2 Ml Vial) 4 mg IV Q6H PRN PRN Reason: Nausea Stop: 08/24/22 02:00 Oseltamivir Phosphate (Oseltamivir Phosphate Susp 30 Mg/5 Ml Udp) 30 mg PO BID [facility]; Protocol Stop: 07/30/22 08:59 Last Admin: 07/29/22 08:39 Dose: 30 mg Oxycodone HCl (Oxycodone Hcl Ir 5 Mg Tab (Immediate Release)) 5 mg PO Q4H PRN PRN Reason: Pain Stop: 08/11/22 08:27 Last Admin: 07/29/22 08:37 Dose: 5 mg Polyethylene Glycol (Polyethylene (Miralax) 17 Gm Pack) 17 gm PO DAILY PRN PRN Reason: Constipation Stop: 08/24/22 02:00 Rivaroxaban (Rivaroxaban 20 Mg Tab) 20 mg PO 1730 [facility] Stop: 08/26/22 17:29 Last Admin: 07/27/22 18:21 Dose: 20 mg
[2022-07-29 10:02] LABS: Hematocrit (blood only) 40.8 % (40.1-51.0); Hemoglobin 13.9 g/dl (14.0-18.0); Mean Corpuscular Hemoglobin 31.2 pg (25.0-34.0); Mean Corpuscular Hgb Conc 34.1 g/dL (32.0-36.0); Mean Corpuscular Volume 91.7 fL (80.0-100.0); Mean Platelet Volume 9.9 fL (9.4-12.4); Platelet Count 223 K/uL (130-400); RDW Coefficient of Variation 14.1 % (11.5-14.5); RDW Standard Deviation 47.7 fL (36.4-46.3); Red Blood Count 4.45 M/uL (4.63-6.08); White Blood Count 9.69 K/ul (4.8-10.8)
[2022-07-29] MEDS: LANTUS PER UNIT CHARGE SQ SCH ×2 (10:19→21:50)
[2022-07-29] MEDS: INSULIN ASPART PER UNIT SC SCH ×4 (10:19→21:49)
[2022-07-29] MEDS: FAMOTIDINE 20 MG in SYRINGE 3 ML IV SCH ×2 (10:20→21:53)
[2022-07-29 10:33] LABS: BUN Creatinine Ratio 18.6 (10-20); Calcium 8.8 mg/dl (8.5-10.1); Est GFR (African American) 50.7 ml/min; Est GFR (Non-African American) 43.7 ml/min; Magnesium 1.7 mg/dl (1.7-2.4); Phosphorus 3.2 mg/dl (2.5-4.9); Potassium 4.4 mmol/L (3.5-5.1)
[2022-07-29] MEDS: ACETAMINOPHEN 325 MG TAB PO PRN (11:52)
[2022-07-29] MEDS: DEXTROMETHORPHAN POLYMR COMPLX 30 MG/5 ML UDP PO PRN (11:53)
[2022-07-30 06:15] LABS: Hematocrit (blood only) 38.7 % (40.1-51.0); Hemoglobin 13.1 g/dl (14.0-18.0); Mean Corpuscular Hemoglobin 30.9 pg (25.0-34.0); Mean Corpuscular Hgb Conc 33.9 g/dL (32.0-36.0); Mean Corpuscular Volume 91.3 fL (80.0-100.0); Platelet Count 212 K/uL (130-400); RDW Coefficient of Variation 13.9 % (11.5-14.5); RDW Standard Deviation 46.4 fL (36.4-46.3); Red Blood Count 4.24 M/uL (4.63-6.08); White Blood Count 9.39 K/ul (4.8-10.8)
[2022-07-30 06:33] LABS: BUN Creatinine Ratio 20.7 (10-20); Calcium 8.3 mg/dl (8.5-10.1); Creatinine Clr Calc Pharmacy 47.3 ml/min; Est GFR (African American) 55.4 ml/min; Est GFR (Non-African American) 47.8 ml/min
[2022-07-30] MEDS: ACETAMINOPHEN 325 MG TAB PO PRN (06:33)
--- NOTE | 2022-07-30 07:25 | Hospitalist Progress Note ---
Date of Service July 30, 2022 Assessment & Plan (1) DKA (diabetic ketoacidosis): Plan DKA possibly precipitated due to Infection Patient also reports some dietary indiscretion during holidays and also reports being on prednisone for gout flare Current A1c 10.7% H/O DM II, diabetic retinopathy, diabetic peripheral neuropathy --Chest CT:Unremarkable evaluation of the chest. Thyromegaly with tiny thyroid nodules, as above. --CT ABD: No acute intra-abdominal or intrapelvic abnormality. No bowel obstruction or bowel wall thickening. No urolith or hydronephrosis. Prostatomegaly with urinary bladder distention. --Blood cultures - negative in 48 hrs --Anion gap closed --IV Insulin>> transition to Insulin SQ Monitor and replace electrolytes as needed Monitor blood glucose levels Advance diet as tolerated Appreciate glycemic pharmacist help Influenza A Acute bronchitis secondary as above H/O Asthma CT chest as above procalcitonin negative Continue Tamiflu -finished course Empirically on doxycycline-finished course Type 2 NSTEMI in setting of demand ischemia Likely demand ischemia secondary to above H/O CAD, CABG X 5 ECHO: Moderate concentric LVH. Very mild hypokinesis of the inferior and septal apex with otherwise normal wall motion. Grade 1 diastolic dysfunction. Continued IV heparin, switched back to xarelto on 07/27 Also on nitroglycerin - switch to isosorbide mononitrate Appreciate cardiology input Continue aspirin, metoprolol, statin, Zetia Started on lisinopril (increased home dose) and isosorbide mononitrate Patient is now on lisinopril 5 mg, and isosorbide mononitrate 60 mg Recurrent chest pain 07/28 -patient reports recurrent left-sided chest pain ECG repeated, troponin at 700s, which is lower from previous values ECG repeated again, without any acute changes Seen by cardiology, echocardiogram obtained Echo EF 65 to 70%. There is moderate concentric LVH. No regional wall motion abnormality noted. DORANTES -Per patient new onset of severe headache, now somewhat improved -Given patient being on IV heparin, Xarelto, obtained head CT -CT head negative for any acute abnormality H/O Multinodular goiter TSH low T4 normal May need follow-up as outpatient Prostatomegaly Monitor for any urinary retention Bladder scan as needed Gout Continue allopurinol CKD III Monitor renal function Avoid nephrotoxic agents as able H/O multiple sclerosis MUGS Polymyalgia rheumatica DVT Px: xarelto Code Status : DNR/DNI Admission and Anticipated Discharge Date Admission Date: July 25, 2022 Subjective Patient seen in follow-up chest pain, elevated troponin, DKA, influenza A Currently sitting up in bed, in no acute distress Overall feeling better. Headache resolved, chest pain much improved, denies any shortness of breath No fevers or chills Denies any nausea, vomiting, abdominal pain, dizziness No other complaints Review of Systems Review of Systems: All systems reviewed & are unremarkable except as noted in Subjective Physical Exam Physical Exam: General Appearance: Moderately built and nourished, no apparent distress Head: normocephalic, Atraumatic Eyes: normal inspection, EOMI Neck: supple, Trachea midline Respiratory/Chest: Normal breath sounds, CTA, No accessory muscle use, +cough Cardiovascular: S1, S2, No murmur Abdomen/GI: Soft, abdomen distended, mild soreness on palpation, Bowel sounds present Extremities/Musculoskeletal: normal inspection, Trace edema Neurologic/Psych: AAOX3, speech fluent, no facial asymmetry, moves extremities Skin: normal color, warm Results & Data Results & Data ([facility]) Vital Signs (Past 12 Hours) Vital Signs Temp Pulse Pulse Resp BP Pulse Ox O2 Del Method 07/30/22 04:52 36.6 C 57 L 16 144/69 H 97 Room Air 07/29/22 23:48 36.7 C 72 16 143/66 H 96 Room Air 07/29/22 23:21 71 07/29/22 20:00 Room Air 07/29/22 21:00 36.4 C L 69 18 145/67 H 95 Room Air Laboratory Results 07/30/22 07/30/22 07/29/22 Range/Units 05:42 05:42 19:46 WBC 9.39 (4.8-10.8) K/ul RBC 4.24 L (4.63-6.08) M/uL Hgb 13.1 L (14.0-18.0) g/dl Hct 38.7 L (40.1-51.0) % MCV 91.3 (80.0-100.0) fL MCH 30.9 (25.0-34.0) pg MCHC 33.9 (32.0-36.0) g/dL RDW Std Deviation 46.4 H (36.4-46.3) fL RDW Coeff of Leo 13.9 (11.5-14.5) % Plt Count 212 (130-400) K/uL MPV 10.0 (9.4-12.4) fL Sodium 140 (136-145) mmol/L Potassium 4.0 (3.5-5.1) mmol/L Chloride 113 H (98-107) mmol/L Carbon Dioxide 21 (21-32) mmol/L Anion Gap 6 (3-11) BUN 30 H (6-23) mg/dl Creatinine 1.45 H (0.6-1.4) mg/dl Est Cr Clr Drug Dosing 47.3 ml/min Est GFR ( Amer) 55.4 ml/min Est GFR (Non-Af Amer) 47.8 ml/min BUN/Creatinine Ratio 20.7 H (10-20) Glucose 113 H (70-99(Fasting)) mg/dl POC Glucose 235 H (70-99) mg/dl Calcium 8.3 L (8.5-10.1) mg/dl Phosphorus (2.5-4.9) mg/dl Magnesium (1.7-2.4) mg/dl Troponin I High Sens (0-20) pg/ml 07/29/22 07/29/22 07/29/22 Range/Units 17:05 16:58 12:18 WBC (4.8-10.8) K/ul RBC (4.63-6.08) M/uL Hgb (14.0-18.0) g/dl Hct (40.1-51.0) % MCV (80.0-100.0) fL MCH (25.0-34.0) pg MCHC (32.0-36.0) g/dL RDW Std Deviation (36.4-46.3) fL RDW Coeff of Leo (11.5-14.5) % Plt Count (130-400) K/uL MPV (9.4-12.4) fL Sodium (136-145) mmol/L Potassium (3.5-5.1) mmol/L Chloride (98-107) mmol/L Carbon Dioxide (21-32) mmol/L Anion Gap (3-11) BUN (6-23) mg/dl Creatinine (0.6-1.4) mg/dl Est Cr Clr Drug Dosing ml/min Est GFR ( Amer) ml/min Est GFR (Non-Af Amer) ml/min BUN/Creatinine Ratio (10-20) Glucose (70-99(Fasting)) mg/dl POC Glucose 180 H 160 H (70-99) mg/dl Calcium (8.5-10.1) mg/dl Phosphorus (2.5-4.9) mg/dl Magnesium (1.7-2.4) mg/dl Troponin I High Sens 229.8 H* D (0-20) pg/ml 07/29/22 07/29/22 07/29/22 Range/Units 09:44 09:44 07:39 WBC 9.69 (4.8-10.8) K/ul RBC 4.45 L (4.63-6.08) M/uL Hgb 13.9 L (14.0-18.0) g/dl Hct 40.8 (40.1-51.0) % MCV 91.7 (80.0-100.0) fL MCH 31.2 (25.0-34.0) pg MCHC 34.1 (32.0-36.0) g/dL RDW Std Deviation 47.7 H (36.4-46.3) fL RDW Coeff of Leo 14.1 (11.5-14.5) % Plt Count 223 (130-400) K/uL MPV 9.9 (9.4-12.4) fL Sodium 139 (136-145) mmol/L Potassium 4.4 (3.5-5.1) mmol/L Chloride 110 H (98-107) mmol/L Carbon Dioxide 22 (21-32) mmol/L Anion Gap 7 (3-11) BUN 29 H (6-23) mg/dl Creatinine 1.56 H (0.6-1.4) mg/dl Est Cr Clr Drug Dosing 44.0 ml/min Est GFR ( Amer) 50.7 ml/min Est GFR (Non-Af Amer) 43.7 ml/min BUN/Creatinine Ratio 18.6 (10-20) Glucose 176 H (70-99(Fasting)) mg/dl POC Glucose 119 H (70-99) mg/dl Calcium 8.8 (8.5-10.1) mg/dl Phosphorus 3.2 (2.5-4.9) mg/dl Magnesium 1.7 (1.7-2.4) mg/dl Troponin I High Sens (0-20) pg/ml Medications Administered Current Inpatient Medications Acetaminophen (Acetaminophen 325 Mg Tab) 650 mg PO Q4H PRN PRN Reason: Pain or Fever Stop: 08/24/22 02:00 Last Admin: 07/30/22 06:33 Dose: 650 mg Al Hydrox/Mg Hydrox/Simethicone (Aluminum/Magnesium Susp 30 Ml Udc) 15 ml PO Q4H PRN PRN Reason: Dyspepsia Stop: 08/24/22 02:00 Allopurinol (Allopurinol 100 Mg Tab) 200 mg PO DAILY [facility] Stop: 08/24/22 08:59 Last Admin: 07/29/22 08:37 Dose: 200 mg Aspirin (Aspirin 81 Mg Ectab) 81 mg PO DAILY JOYCE Stop: 08/24/22 08:59 Last Admin: 07/29/22 08:39 Dose: 81 mg Atorvastatin Calcium (Atorvastatin 40 Mg Tab) 80 mg PO QAM [facility] Stop: 08/24/22 08:59 Last Admin: 07/29/22 08:38 Dose: 80 mg Dextromethorphan Polymer Complex (Dextromethorphan Polymr Complx 30 Mg/5 Ml Udp) 30 mg PO Q12H PRN PRN Reason: Cough Stop: 08/24/22 12:32 Last Admin: 07/29/22 11:53 Dose: 30 mg Dextrose (Dextrose 50% 50 Ml Syringe) 25 - 50 ml IV UD PRN; Protocol PRN Reason: Hypoglycemia Protocol Stop: 08/24/22 03:44 Doxycycline Hyclate (Doxycycline Hyclate 100 Mg Cap) 100 mg PO BID [facility] Stop: 08/01/22 20:59 Last Admin: 07/29/22 21:52 Dose: 100 mg Ezetimibe (Ezetimibe 10 Mg Tablet) 10 mg PO QAM [facility] Stop: 08/24/22 08:59 Last Admin: 07/29/22 08:38 Dose: 10 mg Glucagon (Glucagon For Inj 1 Mg Vial) 1 mg IM UD PRN; Protocol PRN Reason: Hypoglycemia Protocol Stop: 08/24/22 03:44 Glucose (Glucose 40% Gel 15 Gm Tube) 15 - 30 gm PO UD PRN; Protocol PRN Reason: Hypoglycemia Protocol Stop: 08/24/22 03:44 Glucose (Glucose 10 Tab/Tube) 4 - 8 tab PO UD PRN; Protocol PRN Reason: Hypoglycemia Protocol Stop: 08/24/22 03:44 Famotidine 20 mg/ Syringe 5 mls @ 2.5 mls/min IV BID [facility] Stop: 08/24/22 08:59 Last Admin: 07/29/22 21:53 Dose: 2.5 mls/min Insulin Aspart (Insulin Aspart Per Unit) 0 units SC ACHS [facility]; Protocol Stop: 08/24/22 12:19 Last Admin: 07/29/22 21:49 Dose: 5 units Insulin Glargine (Lantus Per Unit Charge) 22 units SQ BID [facility]; Protocol Stop: 08/28/22 20:59 Last Admin: 07/29/22 21:50 Dose: 22 units Isosorbide Mononitrate (Isosorbide [place] Extended Rel 60 Mg Tabcr) 60 mg PO QAM [facility] Stop: 08/25/22 10:59 Last Admin: 07/29/22 08:38 Dose: 60 mg Lisinopril (Lisinopril 2.5 Mg Tab) 2.5 mg PO BID [facility] Stop: 08/25/22 20:59 Last Admin: 07/29/22 21:53 Dose: 2.5 mg Magnesium Hydroxide (Magnesium Hydroxide Susp 30 Ml Udc) 30 ml PO Q12H PRN PRN Reason: Constipation Stop: 08/24/22 02:00 Metoprolol Tartrate (Metoprolol Tartrate 50 Mg Tab) 50 mg PO BID [facility] Stop: 08/24/22 08:59 Last Admin: 07/29/22 21:54 Dose: 50 mg Miscellaneous (Carbohydrates For Hypoglycemia ) 15 - 30 gm PO UD PRN PRN Reason: Hypoglycemia Treatment Stop: 08/24/22 03:44 Miscellaneous Information (Pharmacy Glycemic Mgmt Consult) 1 each N/A UD PRN PRN Reason: Consult Stop: 08/24/22 01:56 Nitroglycerin (Nitroglycerin Sl 0.4 Mg/Tab Tab) 0.4 mg SL PRN PRN PRN Reason: Chest Pain Stop: 08/24/22 02:09 Ondansetron HCl (Ondansetron Inj 2 Mg/Ml 2 Ml Vial) 4 mg IV Q6H PRN PRN Reason: Nausea Stop: 08/24/22 02:00 Oseltamivir Phosphate (Oseltamivir Phosphate Susp 30 Mg/5 Ml Udp) 30 mg PO BID [facility]; Protocol Stop: 07/30/22 08:59 Last Admin: 07/29/22 21:54 Dose: 30 mg Oxycodone HCl (Oxycodone Hcl Ir 5 Mg Tab (Immediate Release)) 5 mg PO Q4H PRN PRN Reason: Pain Stop: 08/11/22 08:27 Last Admin: 07/29/22 08:37 Dose: 5 mg Polyethylene Glycol (Polyethylene (Miralax) 17 Gm Pack) 17 gm PO DAILY PRN PRN Reason: Constipation Stop: 08/24/22 02:00 Rivaroxaban (Rivaroxaban 20 Mg Tab) 20 mg PO 1730 JOYCE Stop: 08/26/22 17:29 Last Admin: 07/27/22 18:21 Dose: 20 mg
[2022-07-30] MEDS: EZETIMIBE 10 MG TABLET PO SCH (08:25)
[2022-07-30] MEDS: ISOSORBIDE MONO EXTENDED REL 60 MG TABCR PO SCH (08:25)
[2022-07-30] MEDS: allopurinoL 100 MG TAB PO SCH (08:26)
[2022-07-30] MEDS: DOXYCYCLINE HYCLATE 100 MG CAP PO SCH (08:26)
[2022-07-30] MEDS: ASPIRIN 81 MG ECTAB PO SCH (08:26)
[2022-07-30] MEDS: ATORVASTATIN 40 MG TAB PO SCH (08:26)
[2022-07-30] MEDS: lisinopril 2.5 MG TAB PO SCH (08:27)
[2022-07-30] MEDS: METOPROLOL TARTRATE 50 MG TAB PO SCH (08:28)
[2022-07-30] MEDS: FAMOTIDINE 20 MG in SYRINGE 3 ML IV SCH (08:32)
[2022-07-30] MEDS: INSULIN ASPART PER UNIT SC SCH ×2 (10:33→13:03)
[2022-07-30] MEDS: LANTUS PER UNIT CHARGE SQ SCH (10:34)
--- NOTE | 2022-07-30 10:54 | Cardiology Progress Note ---
Date of Service July 30, 2022 Assessment & Plan (1) Elevated troponin: (2) DKA (diabetic ketoacidosis): (3) CKD (chronic kidney disease): (4) Influenza A: Plan Musculoskeletal chest pain in the setting of acute influenza infection and frequent cough Multiple EKGs unremarkable 2D echocardiogram unchanged Okay to DC to home from a cardiac standpoint on previous cardiac medications Admission and Anticipated Discharge Date Admission Date: July 25, 2022 Subjective Patient seen and examined. Chart reviewed. Telemetry reviewed. States he is now feeling much better and chest discomfort is now only with inhalation. Review of Systems Review of Systems: All systems reviewed & are unremarkable except as noted in HPI & below Physical Exam Physical Exam: General: Awake, alert and oriented x 3. No acute distress. HEENT: Normocephalic, atraumatic. Pupils equal, round and reactive to light and accommodation. Extraocular muscles are intact. Anicteric sclera. Moist mucous membranes. Neck: No JVD. No bruit. Cardiovascular: Regular. Positive S-4. Normal S-1 and S-2. No S-3. No murmurs or rubs. Pulmonary: Clear to auscultation B/L. No rales, rhonchi or wheezing Abdomen: Bowel sounds x 4, soft. No rebound, guarding or tenderness. No organomegaly. Extremities: No clubbing, cyanosis or edema. +2 pedal pulses bilaterally. Skin: Warm and dry. Results & Data ([facility]) Vital Signs (Past 12 Hours) Vital Signs Temp Pulse Pulse Resp BP BP Pulse Ox 07/30/22 07:53 61 07/30/22 07:42 36.5 C 67 18 162/84 H 152/81 H 96 07/30/22 04:52 36.6 C 57 L 16 144/69 H 97 07/29/22 23:48 36.7 C 72 16 143/66 H 96 07/29/22 23:21 71 O2 Del Method 07/30/22 07:53 07/30/22 07:42 Room Air 07/30/22 04:52 Room Air 07/29/22 23:48 Room Air 07/29/22 23:21
--- NOTE | 2022-07-30 11:48 | Ultrasound Report ---
LEFT LOWER EXTREMITY VENOUS DOPPLER HISTORY: Left leg edema, r/o dvt COMPARISON STUDY: None. FINDINGS: There is normal compressibility, flow, and augmentation within the left lower extremity jose g p venous system. IMPRESSION: No DVT within the left lower extremity. ACT 112: Negative or not required by law.. Electronically signed by: Vance Prieto M.D. 07/30/2022 11:47 AM
--- NOTE | 2022-07-30 11:48 | Ultrasound Report ---
LEFT UPPER EXTREMITY VENOUS DOPPLER HISTORY: Left arm edema, r/o dvt COMPARISON STUDY: None. FINDINGS: The left internal jugular vein is patent. There is normal flow within the left subclavian v ein. There is normal flow and compressibility within the left axillary, basilic, brachial, radial, ul adrian, and visualized cephalic veins. IMPRESSION: No DVT within the left upper extremity. ACT 112: Negative or not required by law. Electronically signed by: Vance Prieto M.D. 07/30/2022 11:47 AM
--- NOTE | 2022-07-30 16:02 | Discharge Summary ---
Date of Service July 30, 2022 Admission HPI Per Admitting Provider 71-year-old male with PMH of T2DM, HTN, CKD stage IIIb, HLD, multinodular goiter, bilateral nonproliferative diabetic retinopathy without macular edema, diabetic peripheral neuropathy, gout, asthma in remission, unstable angina, CAD status post CABG x5 --> 11 months ago per patient, multiple sclerosis, MGUS, PMR presented to our ED 07/25 with complaint of chest pain since 2 days. Patient complained of chest pain/burning across his chest since the morning of July 23 and radiating to his left armpit, was progressively worse reaching up to 9/10 and hence decided to come to the hospital, he has tried ibuprofen and Tylenol without relief, he describes the pain as searing, patient complained of some chest pain at the exam but reports getting better. Patient also complains of having runny nose dizziness and weakness along with cough and greenish-yellow sputum production since July 22, patient diagnosed with influenza A at presentation. Patient also reports occasional palpitation last night, sore bilateral belly secondary to coughing, no acute changes in his bowel or bladder habit, some headache and dizziness the last few days. Patient quit smoking 8 years ago, denies alcohol use, chews tobacco about 2 cans/week, denies recreational drug use. 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 Medications were reviewed with the patient. Plan of care discussed with the patient. Admission Exam Per Admitting Provider GENERAL: Alert and oriented x3. NAD, on RA. HEENT: No pallor, no icterus. Pupils equal, round and reactive to light. Oral mucosa moist. NECK: No JVD, no neck masses. HEART: S1 and S2 heard. tachycardia. No murmur, no gallop. RESPIRATORY SYSTEM: Normal AP diameter. No accessory muscle use. No wheezing, no crackles. ABDOMEN: Soft, bowel sounds present, epigastric tender, no distention. CENTRAL NERVOUS SYSTEM: No facial droop. Speech is clear. Obeys simple commands. Moves extremities. EXTREMITIES: 1+ ble edema, no erythema seen. Principal Diagnosis DKA Influenza infection Atypical chest Elevated troponin Discharge Exam General Appearance: Moderately built and nourished, no apparent distress Head: normocephalic, Atraumatic Eyes: normal inspection, EOMI Neck: supple, Trachea midline Respiratory/Chest: Normal breath sounds, CTA, No accessory muscle use, +cough Cardiovascular: S1, S2, No murmur Abdomen/GI: Soft, abdomen distended, mild soreness on palpation, Bowel sounds present Extremities/Musculoskeletal: normal inspection, Trace edema Neurologic/Psych: AAOX3, speech fluent, no facial asymmetry, moves extremities Skin: normal color, warm Discharge Data Allergies Allergy/AdvReac Type Severity Reaction Status Date / Time morphine AdvReac Severe Vomiting Verified 07/25/22 00:16 rosuvastatin [From Crestor] AdvReac Intermediate Cramping Verified 07/25/22 00:16 of the Muscles Consultations 07/24/22 23:45 ED Decision to Admit Stat 07/25/22 01:59 Consult Cardiology Routine 07/29/22 12:11 Consult Patient Rep [Consult Patient Services] Routine Ordered Studies 07/24/22 22:26 CT abd pelvis wo con Urgent FINDINGS: Coronary artery calcifications. Clear lung bases. The unenhanced spleen is mildly enlarged, 13.3 cm in length. Mild to moderate pancreatic atrophy. Calcifications of the uncinate process suggestive of chronic pancreatitis. Unremarkable adrenal glands and liver with mildly contracted gal lbladder. There is mild nonspecific bilateral perinephric stranding. Indeterminate 5 mm hyperdense focus of the inferior pole right kidney is too small to characterize. A proteinaceous or hemorrhagic cyst is a differential consideration. No renal or ureteral calculi or hydronephrosis identified. Mild prostamegaly. Mild distention of the urinary bladder. Atherosclerosis of the aorta without aneury sm. No lymphadenopathy identified. No bowel obstruction or bowel wall thickening. Mild colonic fecal retention. The appendix is not visualized. No secondary signs of acute appendicitis. Unremarkable soft tissues. Degenerative changes of the spine, pelvis and hips. No acute fracture identified. IMPRESSION: 1. No acute intra-abdominal or intrapelvic abnormality. 2. No bowel obstruction or bowel wall thickening. 3. No urolith or hydronephrosis. 4. Prostamegaly with urinary bladder distention. 5. Additional findings as above. CT chest diagnostic wo con Urgent FINDINGS: Lungs and pleura: Normal. Heart and pericardium: Heart size is normal. No pericardial effusion. Vessels: Severe atherosclerotic changes in the aorta and coronary arteries. Mediastinum and fredy: Unremarkable. Chest wall and lower neck: Numerous small thyroid nodules are seen. Subcentimeter axillary lymph nodes are noted. Abdomen: Unremarkable. Bones: Degenerative changes in the thoracic spine. Patient is status post median sternotomy. IMPRESSION: 1. Unremarkable evaluation of the chest. 2. Thyromegaly with tiny thyroid nodules, as above. 07/28/22 08:24 CT head/brain wo con Stat Findings: Partial opacification of the ethmoid air cells. Trace fluid level within the right maxillary sinus. The mastoid air cells are clear. The calvarium and skull base are intact. The ventricles and sulci are within normal limits. There is no mass, hematoma, midline shift, or acute infarct. Impression: No acute intracranial abnormality. 07/30/22 15:41 US venous doppler LE LT Routine No DVT within the left lower extremity. US venous doppler UE LT Routine No DVT within the left upper extremity. Diabetes Follow up Diabetes Follow-up Needed for HgbA1c >9% Hospital Course (1) DKA (diabetic ketoacidosis): Plan DKA possibly precipitated due to Infection Patient also reports some dietary indiscretion during holidays and also reports being on prednisone recently Current A1c 10.7% H/O DM II, diabetic retinopathy, diabetic peripheral neuropathy --Chest CT:Unremarkable evaluation of the chest. Thyromegaly with tiny thyroid nodules, as above. --CT ABD: No acute intra-abdominal or intrapelvic abnormality. No bowel obstruction or bowel wall thickening. No urolith or hydronephrosis. Prostatomegaly with urinary bladder distention. --Blood cultures - negative in 48 hrs --Anion gap closed --IV Insulin>> transition to Insulin SQ Monitor and replace electrolytes as needed Monitor blood glucose levels Advance diet as tolerated Appreciate glycemic pharmacist help Influenza A Acute bronchitis secondary as above H/O Asthma CT chest as above procalcitonin negative Continue Tamiflu -finished course Empirically on doxycycline-finished course Type 2 NSTEMI in setting of demand ischemia Likely demand ischemia secondary to above H/O CAD, CABG X 5 ECHO: Moderate concentric LVH. Very mild hypokinesis of the inferior and septal apex with otherwise normal wall motion. Grade 1 diastolic dysfunction. Continued IV heparin, switched back to xarelto on 07/27 Also on nitroglycerin - switch to isosorbide mononitrate Appreciate cardiology input Continue aspirin, metoprolol, statin, Zetia Started on lisinopril (increased home dose) and isosorbide mononitrate Patient is now on lisinopril 5 mg, and isosorbide mononitrate 60 mg Recurrent chest pain 1/6 -patient reports recurrent left-sided chest pain ECG repeated, troponin at 700s, which is lower from previous values ECG repeated again, without any acute changes Seen by cardiology, echocardiogram obtained Echo EF 65 to 70%. There is moderate concentric LVH. No regional wall motion abnormality noted. DORANTES -Per patient new onset of severe headache, now somewhat improved -Given patient being on IV heparin, Xarelto, obtained head CT -CT head negative for any acute abnormality H/O Multinodular goiter TSH low T4 normal May need follow-up as outpatient Prostatomegaly Monitor for any urinary retention Bladder scan as needed Gout Continue allopurinol CKD III Monitor renal function Avoid nephrotoxic agents as able H/O multiple sclerosis MUGS Polymyalgia rheumatica Total Time Total Time Spent Total Time Spent (In Minutes): 40 Discharge Plan Discharge Items Patient Disposition: Home - Self-Care Reason For Visit: CHEST PAIN Discharge Diagnosis: DKA Influenza infection Atypical chest Elevated troponin Activity: Per Instructions section Non-emergency contact: Primary Care Provider and Cake Winder Call non-emergency contact if: you have any medication questions and your symptoms worsen Follow-up/Referrals: Nacho Chen MD [Primary Care Provider] - Diet: Carb Consistent or DM2 and Heart Healthy Addtl Attending Provider Instructions: Follow-up with your primary care doctor within 1 week. Your diabetes is uncontrolled, discuss with your primary care provider how to better control your blood sugar levels. Continue your home heart medications as prescribed. In addition, your lisinopril was increased to 5 mg, and you were also started here on a new medication, isosorbide mononitrate. Take it as prescribed. Pending Studies at Discharge: No Stand-Alone Forms: My [facility], Smoking Cessation Medications and DC Order Prescriptions: New isosorbide mononitrate 60 mg Tablet Extended Release 24 Hr 60 mg PO QAM 30 Days Qty: 30 0RF Continued atorvastatin 80 mg tablet 80 mg PO QAM allopurinol 100 mg tablet 200 mg PO DAILY metoprolol tartrate 50 mg tablet 50 mg PO BID aspirin [Baby Aspirin] 81 mg Tablet,Chewable 81 mg PO DAILY metformin 500 mg tablet extended release 24 hr 1,000 mg PO QAM ezetimibe 10 mg tablet 10 mg PO QAM insulin glargine [Basaglar KwikPen U-100 Insulin] 100 unit/mL (3 mL) Insulin Pen 42 unit SUBCUT BID Rx Instructions: AM & BEFORE HS Xarelto 20 mg tablet 20 mg PO DAILY Jardiance 25 mg tablet 25 mg PO DAILY Changed lisinopril 5 mg tablet 5 mg PO QAM 30 Days Qty: 30 0RF Discharge Orders: Discharge Order (Routine); Ordered 07/30/22 Ordered By: Gabe Encarnacion Admission Data Admit Date/Time: 07/25/22 00:35 Attending Provider: Gabe Encarnacion Admit Provider: Susan Leggett Primary Care Provider: Nacho Chen Other Providers: Susan Leggett ; Rodolfo Ordonez ; Farhan George ; Waldemar Moraes ; Isra Sierra ; Diaz Day ; Kelvin Power ; Vivien Morales ; Eva Nieto ; Heidi Marshall ; Nestor Perdomo ; Oscar Brooks.
--- NOTE | 2022-07-31 06:07 | Electrocardiogram Report ---
Test Reason : Blood Pressure : / mmHG Vent. Rate : 063 BPM Atrial Rate : 063 BPM P-R Int : 228 ms QRS Dur : 098 ms QT Int : 408 ms P-R-T Axes : 048 019 087 degrees QTc Int : 417 ms Poor data quality, interpretation may be adversely affected Sinus rhythm with 1st degree A-V block Septal infarct (cited on or before 29-JAN-2022) Abnormal ECG When compared with ECG of 28-JUL-2022 08:10, No significant change was found Confirmed by Jesus Hyde ([id number]) on 07/31/2022 6:06:45 AM Referred By: REFERRED SELF Confirmed By:Jesus Hyde
--- NOTE | 2022-07-31 06:12 | Electrocardiogram Report ---
Test Reason : Blood Pressure : / mmHG Vent. Rate : 070 BPM Atrial Rate : 070 BPM P-R Int : 222 ms QRS Dur : 100 ms QT Int : 400 ms P-R-T Axes : 019 014 092 degrees QTc Int : 432 ms Sinus rhythm with 1st degree A-V block Nonspecific T wave abnormality Abnormal ECG When compared with ECG of 29-JUL-2022 15:59, Septal infarct is no longer Present Confirmed by Jesus Hyde ([id number]) on 07/31/2022 6:12:06 AM Referred By: REFERRED SELF Confirmed By:Jesus Hyde
--- NOTE | 2022-07-31 06:13 | Electrocardiogram Report ---
Test Reason : Blood Pressure : / mmHG Vent. Rate : 064 BPM Atrial Rate : 064 BPM P-R Int : 216 ms QRS Dur : 094 ms QT Int : 396 ms P-R-T Axes : 023 009 093 degrees QTc Int : 408 ms Sinus rhythm with 1st degree A-V block Cannot rule out Septal infarct , age undetermined Nonspecific T wave abnormality Abnormal ECG When compared with ECG of 29-JUL-2022 16:32, No significant change was found Confirmed by Jesus Hyde ([id number]) on 07/31/2022 6:13:23 AM Referred By: REFERRED SELF Confirmed By:Jesus Hyde
--- NOTE | 2022-07-31 06:19 | Electrocardiogram Report ---
Test Reason : Blood Pressure : / mmHG Vent. Rate : 066 BPM Atrial Rate : 066 BPM P-R Int : 206 ms QRS Dur : 084 ms QT Int : 388 ms P-R-T Axes : 000 006 101 degrees QTc Int : 406 ms Poor data quality, interpretation may be adversely affected Normal sinus rhythm Septal infarct (cited on or before 29-JUL-2022) Nonspecific T wave abnormality Abnormal ECG When compared with ECG of 29-JUL-2022 17:20, No significant change was found Confirmed by Jesus Hyde ([id number]) on 07/31/2022 6:18:30 AM Referred By: REFERRED SELF Confirmed By:Jesus Hyde
== END 2022-07-30 16:56 | disposition home or self-care (01) | DRG 637 ==
LOC: ED 21:12 → EDINP 07-25 00:35 → SUATTDRO 07-25 00:35 → 4W 07-25 03:18
DX: Z79.4 Long term (current) use of insulin; N18.32 Chronic kidney disease, stage 3b; Z79.82 Long term (current) use of aspirin; E11.3293 Type 2 diabetes mellitus with mild nonproliferative diabetic retinopathy without macular edema, bilateral; Z66 Do not resuscitate; Z88.8 Allergy status to other drugs, medicaments and biological substances; J20.8 Acute bronchitis due to other specified organisms; Z79.01 Long term (current) use of anticoagulants; J10.1 Influenza due to other identified influenza virus with other respiratory manifestations; E04.2 Nontoxic multinodular goiter; Z95.1 Presence of aortocoronary bypass graft; G35 Multiple sclerosis; E11.10 Type 2 diabetes mellitus with ketoacidosis without coma; Z79.899 Other long term (current) drug therapy; E11.42 Type 2 diabetes mellitus with diabetic polyneuropathy; Z79.84 Long term (current) use of oral hypoglycemic drugs; N13.8 Other obstructive and reflux uropathy; R07.89 Other chest pain; Z20.822 Contact with and (suspected) exposure to COVID-19; Z88.5 Allergy status to narcotic agent; N40.1 Benign prostatic hyperplasia with lower urinary tract symptoms; M35.3 Polymyalgia rheumatica; I21.A1 Myocardial infarction type 2; Z83.3 Family history of diabetes mellitus; Z86.718 Personal history of other venous thrombosis and embolism; J21.9 Acute bronchiolitis, unspecified; E78.5 Hyperlipidemia, unspecified; R51.9 Headache, unspecified; I25.118 Atherosclerotic heart disease of native coronary artery with other forms of angina pectoris; M10.9 Gout, unspecified; E11.22 Type 2 diabetes mellitus with diabetic chronic kidney disease; F17.220 Nicotine dependence, chewing tobacco, uncomplicated; M19.90 Unspecified osteoarthritis, unspecified site; I12.9 Hypertensive chronic kidney disease with stage 1 through stage 4 chronic kidney disease, or unspecified chronic kidney disease; D47.2 Monoclonal gammopathy; I25.2 Old myocardial infarction

== ENCOUNTER 2022-09-08 10:40 | Inpatient (IN) ==
[2022-09-08] MEDS ORDERED: SODIUM CHLORIDE 0.9% 1000ML 1,000 ML IV ONE (11:09)
[2022-09-08] MEDS ORDERED: ASPIRIN CHEW 324 MG PO STA (11:09)
--- NOTE | 2022-09-08 11:14 | Emergency Department Note ---
Impression & Plan Chest pain, Elevated lactic acid level, Leukocytosis ED Provider Note NAME: DAT QUIÑONES AGE: 71 SEX: M : 1950 ARRIVES VIA: Walk-In INFORMANT: Patient, ED PROVIDER(S): Vinicio Vital DO CHIEF COMPLAINT: chest pain HPI: Patient is a 71-year-old male with past medical history of DKA, TOMÁS, CAD with stents and previous bypass with his last NM back in July who presents to the ER for diffuse myalgias and arthralgias in combination with intermittent chest pain. Has had chest heaviness since this past July which have been constant. He has been having intermittent sharp stabbing pain which felt like his previous NM several weeks ago this morning. He notes he can no longer walk due to the diffuse pain throughout his entire body and has constant shaking. No headache or change in vision. No belly pain, nausea, vomiting, or diarrhea. No dysuria, urgency, or frequency. No other exacerbating or remitting factors PAST MEDICAL HISTORY:See Below PAST SURGICAL HISTORY:See Below FAMILY HISTORY:See Below SOCIAL HISTORY:See Below HOME MEDICATIONS:See Below ALLERGIES:See Below VITALS:See Below PHYSICAL EXAMINATION: GENERAL: Sitting up in bed, alert, well appearing, well nourished, no distress, non-toxic EYE EXAM: normal conjunctiva. PERRL and EOM's grossly intact. OROPHARYNX: no exudate, no erythema, lips, buccal mucosa, and tongue normal and mucous membranes are moist NECK: supple, no nuchal rigidity, no adenopathy, non-tender LUNGS: Clear to auscultation. Normal chest wall mechanics HEART: no murmurs, S1 normal and S2 normal ABDOMEN: abdomen soft, non-tender, normo-active bowel sounds, no masses, no rebound or guarding. UPPER EXTREMITIES: upper extremities are grossly normal. LOWER EXTREMITIES: No pitting edema. NEURO EXAM: Normal sensorium, cranial nerves II-XII grossly intact, normal speech, no gross weakness of arms, no gross weakness of legs. MEDICAL DECISION MAKING: Patient is a 71-year-old male who presents to the ER for diffuse myalgias and arthralgias. Upon presentation he is found to be having chills. Labs remarkable for a white count of nearly 15,000. No significant anemia. BMP with a creatinine 1.5 consistent with previous. Lactate was elevated at 2.3. LFTs bilirubin was unremarkable. Lipase was normal. UA was clean. Based on his symptoms I do favor that this likely infectious especially in light of the [place] leukocytosis and elevated lactate. He was given 2 g of Rocephin. Chest x-ray was unremarkable. External records were reviewed. He is currently chest pain-free in regards to the pain that felt like his previous NM. He was discussed with the hospitalist and will be observed overnight. Triage Nursing notes reviewed. Limited review of prior medical records performed Vital Signs: reviewed and remarkable for no significant abnormalities Differential diagnosis: Cardiac ischemia, aortic dissection, pulmonary embolism, pneumothorax, pneumo jean carlos, pericarditis, myocarditis, esophageal rupture, GERD, cholecystitis, pancreatitis, musculoskeletal, as well as other pathologies. ER treatment provided: See below Diagnostics interpreted by me include EKG and cardiac monitoring as listed below: -Cardiac Monitoring: An order was placed for continuous cardiac monitoring. The monitor shows a rate of 80 with sinus rhythm. -ECG: Sinus rhythm rate 73 Normal axis No PVCs T wave inversion in the high lateral leads with ST depressions QTc 403 Septal Q waves No significant change from previous with exception of new T wave inversion in lead I -Laboratory studies:Interpreted by me as stated above in MDM and shown below. Imaging studies: Xrays: As interpreted by me: Portable AP upright 1 view of the chest shows no focal infiltrate per my read CTs show: none Consultation(s): Discussed with the [facility] hospitalist for further evaluation and treatment and management Procedures:none Critical Care: [None] Past Med/Surg History Medical History Anxiety Asthma in remission BPH (benign prostatic hyperplasia) BPH loc w urin obs/LUTS Broken rib r/t old sports injury, shows up on CXRs as abnormal, but was very remote (in college) and does not cause any pain. Cataract Chronic kidney disease Stage III. follows w/ dr. bowens CKD (chronic kidney disease), stage III Deep vein thrombosis hx mult DVT to BLE; on coumadin; most recent fall/2017 - believes r/t surgeries (denies clotting disorder) Diabetes mellitus, type 2 IDDM DM type 2 (diabetes mellitus, type 2) Extrapyramidal disease and abnormal movement disorder GERD (gastroesophageal reflux disease) GERD (gastroesophageal reflux disease) Gout History of kidney stones Hyperlipidemia Hyperlipidemia Hypertension Hypertension Kidney stone Left arm pain Multiple sclerosis Multiple sclerosis follows w/ dr. Galloway, has not had symptoms beyond muscle twitches since the early Osteoarthritis PMR (polymyalgia rheumatica) Polyarthritis Precordial chest pain Prostate cancer screening SOB (shortness of breath) Supratherapeutic INR Thyroid nodule Surgical History H/O arthroscopic knee surgery History of appendectomy History of arthroscopy of left knee History of cardiac cath 15 years ago - CP led to cath - Tj - no stents/angioplasty, ruled indigestion - does not follow w/ cardio History of carpal tunnel release BL History of carpal tunnel surgery History of coronary artery bypass graft CABG X 5 ON 08/19/2021 ([id number], Ao-ramus-OM, Ao-PDA W/ rev SVG) History of cystoscopy History of knee joint replacement x 2 rt knee History of repair of rotator cuff BL History of surgery LLE - hardware present History of tooth extraction History of total right knee replacement S/P appendectomy S/P rotator cuff repair Status post biopsy of thyroid gland benign Family History Daughter History of anesthesia reaction PONV Grandfather (Paternal) Family history of diabetes mellitus Mother Family history of diabetes mellitus Father Family history of diabetes mellitus Social History Smoking Status: Never smoker Tobacco Type: Smokeless Tobacco (Dip or Chew) Second Hand Exposure: No; Hx Alcohol Use: No Hx Substance Use: No Preferred Language: Bruneian Communication Ability: Effective Faculty Research Physician Required: No Beliefs That Will Affect Care: None marital status: Current Living Situation: Spouse current occupational status: retired current occupation: Retired Feels Safe at Home: Yes Assistive Devices: None Allergies Allergies Allergy/AdvReac Type Severity Reaction Status Date / Time morphine AdvReac Severe Vomiting Verified 07/25/22 00:16 rosuvastatin [From Crestor] AdvReac Intermediate Cramping Verified 07/25/22 00:16 of the Muscles Home Meds Home Medications Medication Instructions Recorded Confirmed allopurinol 100 mg tablet 200 mg PO DAILY 07/25/22 09/08/22 aspirin 81 mg chewable tablet 81 mg PO DAILY 07/25/22 09/08/22 atorvastatin 80 mg tablet 80 mg PO QAM 07/25/22 09/08/22 empagliflozin 25 mg tablet 25 mg PO DAILY 07/25/22 09/08/22 (Jardiance) ezetimibe 10 mg tablet 10 mg PO QAM 07/25/22 09/08/22 insulin glargine 100 unit/mL (3 32 unit subcut BID 07/25/22 09/08/22 mL) subcutaneous pen (Basaglar KwikPen U-100 Insulin) metformin 500 mg tablet,extended 1,000 mg PO QAM 07/25/22 09/08/22 release 24 hr metoprolol tartrate 50 mg tablet 50 mg PO BID 07/25/22 09/08/22 rivaroxaban 20 mg tablet (Xarelto) 20 mg PO DAILY 07/25/22 09/08/22 dulaglutide 0.75 mg/0.5 mL 0.75 mg subcut WK 09/08/22 09/08/22 subcutaneous pen injector (Trulicity) isosorbide mononitrate 60 mg 60 mg PO DAILY 09/08/22 09/08/22 tablet,extended release 24 hr Previous Rx's Medication Instructions Recorded lisinopril 5 mg tablet 5 mg PO QAM 30 days #30 tabs 07/30/22 Results & Data (ED) Vital Signs Vital Signs - 24 hr 09/08/22 10:44 09/08/22 11:11 09/08/22 11:12 Temperature 36 C L Temperature Source Temporal Artery Scan Pulse Rate 84 Pulse Rate [Apical] 82 Respiratory Rate 18 18 Respiratory Effort / Characteristics Non-Labored Spontaneous Non-Labored Respiratory Depth Normal Normal Respiratory Pattern Regular Blood Pressure 125/80 Blood Pressure [Right Arm] 148/60 H Blood Pressure Mean 95 Blood Pressure Mean [Right Arm] 89 Blood Pressure Position Sitting Pulse Oximetry 98 97 97 Oxygen Delivery Method Room Air Room Air Room Air Sepsis Recent Fever Within 48 Hours No Sepsis New/Unexplained Change in Mental Status N/A Sepsis Action Taken by Nursing No Action Required 09/08/22 12:06 09/08/22 12:26 09/08/22 13:01 Temperature Temperature Source Pulse Rate 79 Pulse Rate [Apical] 80 82 Respiratory Rate 18 16 Respiratory Effort / Characteristics Non-Labored Spontaneous Non-Labored Respiratory Depth Normal Normal Respiratory Pattern Blood Pressure Blood Pressure [Right Arm] 142/71 H 127/70 Blood Pressure Mean Blood Pressure Mean [Right Arm] 94 89 Blood Pressure Position Pulse Oximetry 96 96 Oxygen Delivery Method Room Air Room Air Sepsis Recent Fever Within 48 Hours Sepsis New/Unexplained Change in Mental Status Sepsis Action Taken by Nursing Laboratory Data 09/08/22 11:02 09/08/22 11:02 Lab Results 09/08/22 09/08/22 09/08/22 Range/Units 11:02 11:02 11:02 WBC 14.85 H (4.8-10.8) K/ul RBC 5.06 (4.70-6.10) M/uL Hgb 15.8 (14.0-18.0) g/dl Hct 47.1 (42.0-52.0) % MCV 93.1 (80.0-100.0) fL MCH 31.2 (25.0-34.0) pg MCHC 33.5 (32.0-36.0) g/dL RDW Std Deviation 49.1 H (36.4-46.3) fL RDW Coeff of Leo 14.5 (11.5-14.5) % Plt Count 222 (130-400) K/uL MPV 10.4 (9.4-12.4) fL Immature Gran % (Auto) 0.3 % Neut % (Auto) 79.5 % Lymph % (Auto) 9.4 % [place] % (Auto) 7.3 % Eos % (Auto) 3.1 % Baso % (Auto) 0.4 % Neut # (Auto) 11.80 H (1.40-6.50) K/uL Lymph # (Auto) 1.39 (1.2-3.4) K/uL [place] # (Auto) 1.09 H (0.11-0.59) K/uL Eos # (Auto) 0.46 (0-0.50) K/uL Baso # (Auto) 0.06 (0-0.2) K/uL Immature Gran # (Auto) 0.05 (0.01-0.20) K/uL Sodium 141 (136-145) mmol/L Potassium 4.3 (3.5-5.1) mmol/L Chloride 108 H (98-107) mmol/L Carbon Dioxide 24 (21-32) mmol/L Anion Gap 9 (3-11) BUN 24 H (6-23) mg/dl Creatinine 1.59 H (0.6-1.4) mg/dl Est Cr Clr Drug Dosing 42.7 ml/min Est GFR ( Amer) 49.5 ml/min Est GFR (Non-Af Amer) 42.7 ml/min BUN/Creatinine Ratio 15.1 (10-20) Glucose 96 (70-99(Fasting)) mg/dl Lactate (0.4-2.0) mmol/L Uric Acid 5.9 (2.6-7.2) mg/dl Calcium 9.8 (8.5-10.1) mg/dl Total Bilirubin 0.7 (0.2-1.0) mg/dl AST 19 (13-39) U/L ALT 25 (7-52) U/L Alkaline Phosphatase 68 (34-104) U/L Troponin I High Sens 8.0 (0-20) pg/ml C-Reactive Protein < 0.50 (0-0.5) mg/dl Total Protein 7.2 (6.0-8.3) gm/dl Albumin 4.2 (3.4-5.0) gm/dl Globulin 3.0 (2.5-4.0) gm/dl Albumin/Globulin Ratio 1.4 (0.9-2) Lipase 24 (11-82) U/L Procalcitonin < 0.05 (0-0.5) ng/ml Urine Color Urine Appearance (Clear) Urine pH (4.5-7.5) Ur Specific [place] (1.000-1.030) Urine Protein (Negative) Urine Glucose (UA) (Negative) Urine Ketones (Negative) Urine Blood (Negative) Urine Nitrite (Negative) Urine Bilirubin (Negative) Urine Urobilinogen (Negative) Ur Leukocyte Esterase (Negative) Urine WBC (Auto) (0-5) /hpf Urine RBC (Auto) (0-4) /hpf U Hyaline Cast (Auto) (0-5) /lpf U Epithel Cells (Auto) (0-5) /lpf Urine Bacteria (Auto) (Negative) Lyme Disease IgG Ab Negative (Negative) Lyme Disease IgM Ab Negative (Negative) SARS-CoV-2 (PCR) (Negative) Influenza Type A (PCR) (Neg) Influenza Type B (PCR) (Neg) RSV (RT-PCR) (Neg) 09/08/22 09/08/22 09/08/22 Range/Units 11:12 11:50 11:58 WBC (4.8-10.8) K/ul RBC (4.70-6.10) M/uL Hgb (14.0-18.0) g/dl Hct (42.0-52.0) % MCV (80.0-100.0) fL MCH (25.0-34.0) pg MCHC (32.0-36.0) g/dL RDW Std Deviation (36.4-46.3) fL RDW Coeff of Leo (11.5-14.5) % Plt Count (130-400) K/uL MPV (9.4-12.4) fL Immature Gran % (Auto) % Neut % (Auto) % Lymph % (Auto) % [place] % (Auto) % Eos % (Auto) % Baso % (Auto) % Neut # (Auto) (1.40-6.50) K/uL Lymph # (Auto) (1.2-3.4) K/uL [place] # (Auto) (0.11-0.59) K/uL Eos # (Auto) (0-0.50) K/uL Baso # (Auto) (0-0.2) K/uL Immature Gran # (Auto) (0.01-0.20) K/uL Sodium (136-145) mmol/L Potassium (3.5-5.1) mmol/L Chloride (98-107) mmol/L Carbon Dioxide (21-32) mmol/L Anion Gap (3-11) BUN (6-23) mg/dl Creatinine (0.6-1.4) mg/dl Est Cr Clr Drug Dosing ml/min Est GFR ( Amer) ml/min Est GFR (Non-Af Amer) ml/min BUN/Creatinine Ratio (10-20) Glucose (70-99(Fasting)) mg/dl Lactate 2.3 H* (0.4-2.0) mmol/L Uric Acid (2.6-7.2) mg/dl Calcium (8.5-10.1) mg/dl Total Bilirubin (0.2-1.0) mg/dl AST (13-39) U/L ALT (7-52) U/L Alkaline Phosphatase (34-104) U/L Troponin I High Sens (0-20) pg/ml C-Reactive Protein (0-0.5) mg/dl Total Protein (6.0-8.3) gm/dl Albumin (3.4-5.0) gm/dl Globulin (2.5-4.0) gm/dl Albumin/Globulin Ratio (0.9-2) Lipase (11-82) U/L Procalcitonin (0-0.5) ng/ml Urine Color Yellow Urine Appearance Clear (Clear) Urine pH 5.0 (4.5-7.5) Ur Specific [place] 1.027 (1.000-1.030) Urine Protein 3+ H (Negative) Urine Glucose (UA) 3+ H (Negative) Urine Ketones Trace H (Negative) Urine Blood Negative (Negative) Urine Nitrite Negative (Negative) Urine Bilirubin Negative (Negative) Urine Urobilinogen Negative (Negative) Ur Leukocyte Esterase Negative (Negative) Urine WBC (Auto) 1-5 (0-5) /hpf Urine RBC (Auto) 0-4 (0-4) /hpf U Hyaline Cast (Auto) 1-5 (0-5) /lpf U Epithel Cells (Auto) 10-20 H (0-5) /lpf Urine Bacteria (Auto) Negative (Negative) Lyme Disease IgG Ab (Negative) Lyme Disease IgM Ab (Negative) SARS-CoV-2 (PCR) NEGATIVE (Negative) Influenza Type A (PCR) Negative (Neg) Influenza Type B (PCR) Negative (Neg) RSV (RT-PCR) Negative (Neg) Administered Medications Miscellaneous (Carbohydrates For Hypoglycemia ) 15 - 30 gm PO UD PRN PRN Reason: Hypoglycemia Protocol Stop: 10/08/22 15:42 Last Admin: 09/08/22 16:19 Dose: 15 gm Documented By: Admin: 09/08/22 15:58 Dose: 30 gm Documented By: RRR Discontinued Medications Aspirin (Aspirin Chew 324 Mg) 324 mg PO NOW STA Stop: 09/08/22 11:10 Last Admin: 09/08/22 11:19 Dose: 324 mg Documented By: NMS Sodium Chloride (Nss 1000ml) 1,000 mls @ 999 mls/hr IV .Q1H1M ONE Stop: 09/08/22 12:09 Last Infusion: 09/08/22 12:33 Dose: 0 mls/hr Documented By: Admin: 09/08/22 11:19 Dose: 999 mls/hr Documented By: CARMITA Ceftriaxone Sodium (Rocephin) 2,000 mg in 70 mls @ 140 mls/hr IV NOW STA Stop: 09/08/22 13:18 Last Infusion: 09/08/22 13:32 Dose: 0 mls/hr Documented By: Admin: 09/08/22 13:01 Dose: 140 mls/hr Documented By: CARMITA Imaging Data Radiologist's Impression: Chest X-Ray 09/08/22 10:55 XR chest 1V portable HISTORY: Chest pain, nonspecific COMPARISON: Chest 07/24/2022. FINDINGS: The lungs are clear. Cardiac silhouette is normal in size. No pleural effusions. No pneumothorax. There are postoperative changes. Postoperative changes again noted within the right shoulder. IMPRESSION: No acute process. ACT 112: Negative or not required by law. Electronically signed by: Vance Prieto M.D. 09/08/2022 11:33 AM Discharge Plan Visit Data Chief Complaint: Chest Pain Stated Complaint: SEVERE PAIN IN EVERY JOINT, CHEST PAINS OFF AND ON ED Provider: Vinicio Vital Discharge Problem: Chest pain, Elevated lactic acid level, Leukocytosis Patient Disposition: Admitted As Inpatient
[2022-09-08 11:28] LABS: Basophils # (auto) 0.06 K/uL (0-0.2); Basophils % (auto) 0.4 %; Eosinophils # (auto) 0.46 K/uL (0-0.50); Eosinophils % (auto) 3.1 %; Hematocrit (blood only) 47.1 % (42.0-52.0); Hemoglobin 15.8 g/dl (14.0-18.0); Immature Granulocytes # (auto) 0.05 K/uL (0.01-0.20); Immature Granulocytes % (auto) 0.3 %; Lymphocytes # (auto) 1.39 K/uL (1.2-3.4); Lymphocytes % (auto) 9.4 %; Mean Corpuscular Hemoglobin 31.2 pg (25.0-34.0); Mean Corpuscular Hgb Conc 33.5 g/dL (32.0-36.0); Mean Corpuscular Volume 93.1 fL (80.0-100.0); Mean Platelet Volume 10.4 fL (9.4-12.4); Monocytes # (auto) 1.09 K/uL (0.11-0.59); Monocytes % (auto) 7.3 %; Neutrophils % (auto) 79.5 %; Platelet Count 222 K/uL (130-400); RDW Coefficient of Variation 14.5 % (11.5-14.5); RDW Standard Deviation 49.1 fL (36.4-46.3); Red Blood Count 5.06 M/uL (4.70-6.10); White Blood Count 14.85 K/ul (4.8-10.8)
--- NOTE | 2022-09-08 11:35 | XRay Report ---
XR chest 1V portable HISTORY: Chest pain, nonspecific COMPARISON: Chest 07/24/2022. FINDINGS: The lungs are clear. Cardiac silhouette is normal in size. No pleural effusions. No pneumot horax. There are postoperative changes. Postoperative changes again noted within the right shoulder. IMPRESSION: No acute process. ACT 112: Negative or not required by law. Electronically signed by: Vance Prieto M.D. 09/08/2022 11:33 AM
[2022-09-08 11:38] LABS: Alanine Aminotransferase 25 U/L (7-52); Albumin Globulin Ratio 1.4 (0.9-2); Albumin Level 4.2 gm/dl (3.4-5.0); Alkaline Phosphatase 68 U/L (34-104); Anion Gap 9 (3-11); Aspartate Aminotransferase 19 U/L (13-39); BUN Creatinine Ratio 15.1 (10-20); Bilirubin,Total 0.7 mg/dl (0.2-1.0); Blood Urea Nitrogen 24 mg/dl (6-23); Calcium 9.8 mg/dl (8.5-10.1); Carbon Dioxide 24 mmol/L (21-32); Chloride 108 mmol/L (98-107); Creatinine Clr Calc Pharmacy 42.7 ml/min; Est GFR (African American) 49.5 ml/min; Est GFR (Non-African American) 42.7 ml/min; Glucose 96 mg/dl (70-99(Fasting)); Lipase 24 U/L (11-82); Potassium 4.3 mmol/L (3.5-5.1); Sodium 141 mmol/L (136-145); Total Protein 7.2 gm/dl (6.0-8.3)
[2022-09-08 12:19] LABS: Influenza A virus by PCR Negative (Neg); Influenza B virus by PCR Negative (Neg); RSV by PCR Negative (Neg); SARS CoV2 RNA(COVID-19) Ceph NEGATIVE (Negative)
[2022-09-08 12:21] LABS: Appearance Urine Clear (Clear); Bacteria Urine Automated Negative (Negative); Bilirubin Urine Negative (Negative); Blood Urine Negative (Negative); Color Urine Yellow; Glucose Urine UA 3+ (Negative); Ketones Urine Trace (Negative); Leukocyte Esterase Urine Negative (Negative); Nitrite Urine Negative (Negative); Protein Urine 3+ (Negative); RBC Urine Automated 0-4 /hpf (0-4); Specific Gravity Urine 1.027 (1.000-1.030); Urobilinogen Urine Negative (Negative)
[2022-09-08] MEDS ORDERED: cefTRIAXone SODIUM 2,000 MG/70 ML BAG IV STA (12:49)
--- NOTE | 2022-09-08 13:11 | History & Physical Report ---
Date of Service September 08, 2022 Assessment & Plan (1) Arthralgia: (2) Generalized weakness: Plan: Patient is 71-year-old male with PMH CAD, NSTEMI s/p CABG 08/19/2021, chronic stable angina, HTN, HLD, DM II, CKD III, MS, gout, multinodular goiter, polymyalgia rheumatica, h/o DVT on chronic anticoagulation with Xarelto presented to ER with c/o onset diffuse bilateral arthralgias today. DDX: sepsis/bacteremia, PMR, MS flare, GCA Negative Lyme Anaplasma pending ESR: 22, CRP: < 0.5 Infectious work-up as below CT head: No acute findings Fall precautions Neurology consult Spoke with relationship consultant, Dr Lock on phone. Since inflammatory markers are relatively unremarkable recommends if blood cultures negative and no source of infection to start 10-20mg prednisone daily (3) Rigors: Plan: DDX: sepsis/bacteremia Rigors noted in ER. Afebrile in ER. Vital stable Denies cough, vomiting, diarrhea, urinary symptoms WBC: 14. UA unremarkable. CXR: No infiltrate. Procalcitonin WNL. Negative SARS-CoV-2 PCR, negative influenza and RSV PCR Lactate: 2.3-->1.6 Blood cultures pending In ER given Rocephin, 1L NSS Continue Rocephin, add doxycycline. If would have continued fevers may need to consider more broad spectrum antibiotics CBC in a.m. (4) Chest pain: (5) CAD (coronary artery disease): Plan: CAD, NSTEMI s/p CABG 08/19/2021, chronic stable angina Recent hospital admission 07/25/2022- 07/30/2022 for DKA, influenza A, type II NSTEMI in setting of demand ischemia. 07/25/2022 echo: Moderate concentric LVH, mild hypokinesis inferior and septal apex, grade 1 diastolic dysfunction 07/28/2022 echo: EF: 65-70%, moderate concentric LVH, no regional wall motion abnormalities Episode midsternal nonradiating chest pain with associated nausea, lightheadedness today around 7:30 AM Denies current chest pain or shortness of breath Initial high-sensitivity troponin: 8. EKG without acute ST elevation Trend troponin If troponins uptrending consider echo, cardiology consult Continue aspirin, atorvastatin, isosorbide, metoprolol tartrate (6) DM type 2 (diabetes mellitus, type 2): Plan: A1c: 10.7 on 07/25/2022 Hold home glycemic agents Basal bolus insulin per protocol (7) CKD (chronic kidney disease), stage III: Plan: Cr: 1.59. Baseline 1.4-1.6 per outpatient chart review Monitor renal functions, avoid nephrotoxic agents when possible (8) Hypertension: Plan: Stable Continue lisinopril, metoprolol tartrate (9) Deep vein thrombosis: Plan: History of DVT. Chronically anticoagulated on Xarelto Continue Xarelto (10) PMR (polymyalgia rheumatica): Plan: Follows with rheumatology, Dr. Lock (11) Multiple sclerosis: Plan: Follows with neurology, Dr. Galloway Outpatient neurology note reviewed: Reported vague history of MS based on symptoms of fatigue, numbness in feet and abnormal MRI scans in the past. Patient has had clinically inactive symptoms throughout and had never received disease modifying therapy (12) Gout: Plan: Continue allopurinol DVT Prophylaxis On Xarelto DNR/DNI as per discussion with pt Follows with Dr Chen for routine care Pt was seen and care coordinated with Dr Encarnacion. See addendum I spent a total of 78 minutes reviewing notes, outpatient records, labs, medication, coordinating, documenting and providing care for this patient excluding time spent in the performance of separately billed services. History of Present Illness Chief Complaint: CP, body aches Primary Care Provider: Nacho Chen MD Patient is 71-year-old male with PMH CAD, NSTEMI s/p CABG 08/19/2021, chronic stable angina, HTN, HLD, DM II, CKD III, MS, gout, multinodular goiter, polymyalgia rheumatica, h/o DVT on chronic anticoagulation with Xarelto presented to ER with c/o body aches and episode of CP today. Patient states this morning woke up with generalized weakness. Also woke up with diffuse arthralgias. Reports neck pain, bilateral shoulder, bilateral elbow, wrist, hand finger, hip, knee, ankle, foot pain today. Reports limited ROM of bilateral fingers secondary to pain and edema. Has chronic paraesthesias BLE thought secondary to diabetic neuropathy. Also reports generalized DORANTES today. States last night when watching TV and thought had some blurry vision. Has not noticed any visual disturbance today. Denies diplopia, vision loss. Approximately 7:30 AM had onset of sharp stabbing mid chest pain that was non-radiating and associated with lightheadedness and nausea. Denies vomiting. Patient reports a generalized shaking today. He is unaware of any fever. Denies any known recent tick bite, recent travel. Denies diaphoresis, V/D/C, syncope, SOB, orthopnea, palpitations, cough, sore throat, choking, otalgia, rhinorrhea, abdominal pain, rashes, urinary symptoms. Recent hospital admission 07/25/2022- 07/30/2022 for DKA, influenza A, type II NSTEMI in setting of demand ischemia. During admission was treated with IV heparin transitioned to his home Xarelto and was discharged on isosorbide, increase lisinopril dose. Patient reports has had slow recovery since recent hospitalization and difficulty regaining his stamina. Reports earlier this week he felt like he was getting closer to his baseline and was able to walk to his mailbox approximately 100 feet. Reports had continued cough for couple of weeks past discharge but that has finally resolved. 07/25/2022 echo: Moderate concentric LVH, mild hypokinesis inferior and septal apex, grade 1 diastolic dysfunction 07/28/2022 echo: EF: 65-70%, moderate concentric LVH, no regional wall motion abnormalities Allergies Allergy/AdvReac Type Severity Reaction Status Date / Time morphine AdvReac Severe Vomiting Verified 07/25/22 00:16 rosuvastatin [From Crestor] AdvReac Intermediate Cramping Verified 07/25/22 00:16 of the Muscles Home Medications Medication Instructions Recorded Confirmed Type allopurinol 100 mg tablet 200 mg PO DAILY 07/25/22 09/08/22 History aspirin 81 mg chewable tablet 81 mg PO DAILY 07/25/22 09/08/22 History atorvastatin 80 mg tablet 80 mg PO QAM 07/25/22 09/08/22 History empagliflozin 25 mg tablet 25 mg PO DAILY 07/25/22 09/08/22 History (Jardiance) ezetimibe 10 mg tablet 10 mg PO QAM 07/25/22 09/08/22 History insulin glargine 100 unit/mL (3 32 unit subcut BID 07/25/22 09/08/22 History mL) subcutaneous pen (Basaglar KwikPen U-100 Insulin) metformin 500 mg tablet,extended 1,000 mg PO QAM 07/25/22 09/08/22 History release 24 hr metoprolol tartrate 50 mg tablet 50 mg PO BID 07/25/22 09/08/22 History rivaroxaban 20 mg tablet (Xarelto) 20 mg PO DAILY 07/25/22 09/08/22 History lisinopril 5 mg tablet 5 mg PO QAM 30 days #30 tabs 07/30/22 09/08/22 Rx dulaglutide 0.75 mg/0.5 mL 0.75 mg subcut WK 09/08/22 09/08/22 History subcutaneous pen injector (Trulicity) isosorbide mononitrate 60 mg 60 mg PO DAILY 09/08/22 09/08/22 History tablet,extended release 24 hr Past Med/Surg History Medical History Anxiety Asthma in remission BPH (benign prostatic hyperplasia) BPH loc w urin obs/LUTS Broken rib r/t old sports injury, shows up on CXRs as abnormal, but was very remote (in college) and does not cause any pain. Cataract Chronic kidney disease Stage III. follows w/ dr. 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 Galloway, has not had symptoms beyond muscle twitches since the early Osteoarthritis PMR (polymyalgia rheumatica) Polyarthritis Precordial chest pain Prostate cancer screening SOB (shortness of breath) Supratherapeutic INR Thyroid nodule Surgical History H/O arthroscopic knee surgery History of appendectomy History of arthroscopy of left knee History of cardiac cath 15 years ago - CP led to cath - Tj - no stents/angioplasty, ruled indigestion - does not follow w/ cardio History of carpal tunnel release BL History of carpal tunnel surgery History of coronary artery bypass graft CABG X 5 ON 08/19/2021 ([id number], Ao-ramus-OM, Ao-PDA W/ rev SVG) History of cystoscopy History of knee joint replacement x 2 rt knee History of repair of rotator cuff BL History of surgery LLE - hardware present History of tooth extraction History of total right knee replacement S/P appendectomy S/P rotator cuff repair Status post biopsy of thyroid gland benign Family History Daughter History of anesthesia reaction PONV Grandfather (Paternal) Family history of diabetes mellitus Mother Family history of diabetes mellitus Father Family history of diabetes mellitus Social History Smoking Status: Never smoker Tobacco Type: Smokeless Tobacco (Dip or Chew) Second Hand Exposure: No; Hx Alcohol Use: No Hx Substance Use: No Preferred Language: Kyrgyz Communication Ability: Effective Director Print Required: No Beliefs That Will Affect Care: None marital status: Current Living Situation: Spouse current occupational status: retired current occupation: Retired Feels Safe at Home: Yes Assistive Devices: Cane, Glasses, Walker and Wheelchair Review of Systems Review of Systems: All systems reviewed & are unremarkable except as noted in HPI & below Physical Exam Physical Exam: General: no distress, WDWN Head: normocephalic, atraumatic Eyes: PERRL, EOM's intact, conjunctiva non-injected, anicteric ENT: normal inspection external ears, nose, mucous membranes moist Neck: supple, trachea midline Lungs: clear, no respiratory distress, no wheezing/rhonchi/rales CV: RRR, no murmur, no JVD, no pretibial edema Abd: normal BS, soft, non-tender Ext: no cyanosis, no calf tenderness, +limited flexion and extension of bilateral fingers secondary to tenderness/stiffness. No erythema noted to joints but with +diffuse tenderness to palpation neck, bilateral shoulders, bilateral elbows, bilateral wrists, fingers, bilateral hips, bilateral knees and ankles and feet. Neuro: A&O x 3, no focal deficits noted, normal affect Skin: warm, dry Results & Data Results & Data ([facility]) Vital Signs (Past 12 Hours) Vital Signs Temp Pulse Pulse Resp BP BP Pulse Ox 09/08/22 13:01 82 16 127/70 96 09/08/22 12:26 79 09/08/22 12:06 80 18 142/71 H 96 09/08/22 11:12 97 09/08/22 11:11 82 18 148/60 H 97 09/08/22 10:44 36 C L 84 18 125/80 98 O2 Del Method 09/08/22 13:01 Room Air 09/08/22 12:26 09/08/22 12:06 Room Air 09/08/22 11:12 Room Air 09/08/22 11:11 Room Air 09/08/22 10:44 Room Air Laboratory Results Short CBC 09/08/22 Range/Units 11:02 WBC 14.85 H (4.8-10.8) K/ul Hgb 15.8 (14.0-18.0) g/dl Hct 47.1 (42.0-52.0) % Plt Count 222 (130-400) K/uL BMP 09/08/22 11:02 Sodium 141 Potassium 4.3 Chloride 108 H Carbon Dioxide 24 BUN 24 H Creatinine 1.59 H Glucose 96 Calcium 9.8 Liver Function 09/08/22 Range/Units 11:02 Total Bilirubin 0.7 (0.2-1.0) mg/dl AST 19 (13-39) U/L ALT 25 (7-52) U/L Alkaline Phosphatase 68 (34-104) U/L Albumin 4.2 (3.4-5.0) gm/dl Urine 09/08/22 Range/Units 11:58 Urine Color Yellow Urine Appearance Clear (Clear) Urine pH 5.0 (4.5-7.5) Ur Specific Outlook 1.027 (1.000-1.030) Urine Protein 3+ H (Negative) Urine Glucose (UA) 3+ H (Negative) Diagnostic Findings Chest X-Ray 09/08/22 10:55 XR chest 1V portable HISTORY: Chest pain, nonspecific COMPARISON: Chest 07/24/2022. FINDINGS: The lungs are clear. Cardiac silhouette is normal in size. No pleural effusions. No pneumothorax. There are postoperative changes. Postoperative changes again noted within the right shoulder. IMPRESSION: No acute process. ACT 112: Negative or not required by law. Electronically signed by: Vance Prieto M.D. 09/08/2022 11:[address] 09/08/22 13:49 CT SCAN OF THE BRAIN WITHOUT IV CONTRAST CLINICAL HISTORY: Headache. COMPARISON STUDY: CT of the brain dated 07/28/2022. TECHNIQUE: Unenhanced axial CT scan of the brain is performed from the vertex to the skull base. A dose lowering technique was utilized adhering to the principles of ALARA. CT DOSE: 729.78 mGycm FINDINGS: Brain parenchyma: There is age-related involutional change noting mild subcortical and periventricular microangiopathic disease. There is no hemorrhage, mass effect, or evidence of acute territorial ischemia by CT criteria. Sotelo-white matter differentiation is preserved. No extra-axial fluid collection is seen. Ventricles, sulci, cisterns: Prominent secondary to involutional change. Intracranial vasculature: There is atherosclerotic calcification of the cavernous carotid and vertebral arteries. Calvarium: Unremarkable. Sinuses and mastoids: The paranasal sinuses are clear. The mastoid air cells are well pneumatized. Orbits: The bony orbits are grossly intact. IMPRESSION: There is no hemorrhage, mass effect, or evidence of acute territorial ischemia by CT criteria. ACT 112: Negative or not required by law. Electronically signed by: Jayme Ortiz M.D. 09/08/2022 2:37 PM ECG Rate (beats per minute): 73 Rhythm: sinus rhythm Findings: + Q waves (q waves septal leads also noted on previous ekg. t wave flattening lateral leads) Supervising Physician Co-Signing Physician Notes Pt seen and examined by me, care coordinated mitchell/ Wilberto De La Rosa PA-C, pls refer to her note above for further detail. Pt is 71-year-old male with PMH CAD, NSTEMI s/p CABG 08/19/2021, chronic stable angina, HTN, HLD, DM II, CKD III, MS, gout, multinodular goiter, polymyalgia rheumatica, h/o DVT on chronic anticoagulation with Xarelto presented to ER with c/o onset diffuse bilateral arthralgias today. Patient reported weakness, pain in his joints,shoulders, knees, however also stabbing chest pain. Initially felt that possibly this is rheumatologic, and Dr. Lock was contacted. Cardiology was also consulted given chest pain and history of CAD. Patient reported some vision changes yesterday, and has history of MS, therefore neurology was also consulted for possible MS flare. After patient came upstairs from emergency room, however he spiked fever, had rigors. Blood cultures were obtained. Started empirically on antibiotics. Lyme panel and Anaplasma ordered as well. Currently he is alert oriented answering questions appropriately, however slightly febrile, and having rigors. Clear to auscultation bilaterally. Recently he was admitted, and was diagnosed with influenza. Says that he no longer has any cough, and no difficulty with breathing. Heart sounds regular. Abdomen is soft nontender nondistended, with positive bowel sounds. He is able to move extremities. Plan as above, continue to closely monitor. MD Alysha
[2022-09-08 13:55] LABS: Procalcitonin < 0.05 ng/ml (0-0.5)
[2022-09-08 14:01] LABS: Lyme Ab IgG w/WB Rflx Negative (Negative); Lyme Ab IgM w/WB Rflx Negative (Negative)
--- NOTE | 2022-09-08 14:39 | CT Scan Report ---
CT SCAN OF THE BRAIN WITHOUT IV CONTRAST CLINICAL HISTORY: Headache. COMPARISON STUDY: CT of the brain dated 07/28/2022. TECHNIQUE: Unenhanced axial CT scan of the brain is performed from the vertex to the skull base. A do se lowering technique was utilized adhering to the principles of ALARA. CT DOSE: 729.78 mGycm FINDINGS: Brain parenchyma: There is age-related involutional change noting mild subcortical and periventricula r microangiopathic disease. There is no hemorrhage, mass effect, or evidence of acute territorial isc hemia by CT criteria. Sotelo-white matter differentiation is preserved. No extra-axial fluid collection is seen. Ventricles, sulci, cisterns: Prominent secondary to involutional change. Intracranial vasculature: There is atherosclerotic calcification of the cavernous carotid and vertebr al arteries. Calvarium: Unremarkable. Sinuses and mastoids: The paranasal sinuses are clear. The mastoid air cells are well pneumatized. Orbits: The bony orbits are grossly intact. IMPRESSION: There is no hemorrhage, mass effect, or evidence of acute territorial ischemia by CT olga ruiz. ACT 112: Negative or not required by law. Electronically signed by: Jayme Ortiz M.D. 09/08/2022 2:37 PM
[2022-09-08 14:52] LABS: C Reactive Protein < 0.50 mg/dl (0-0.5); Uric Acid 5.9 mg/dl (2.6-7.2)
[2022-09-08] MEDS ORDERED: POLYETHYLENE (MIRALAX) 17 GM PACK PO PRN (15:43)
[2022-09-08] MEDS ORDERED: GLUCAGON FOR INJ 1 MG VIAL SQ PRN (15:43)
[2022-09-08] MEDS ORDERED: DEXTROSE 50% 50 ML SYRINGE IV PRN (15:43)
[2022-09-08] MEDS ORDERED: GLUCOSE 40% GEL 15 GM TUBE PO PRN (15:43)
[2022-09-08] MEDS ORDERED: GLUCOSE 10 TAB/TUBE PO PRN (15:43)
[2022-09-08] MEDS: CARBOHYDRATES FOR HYPOGLYCEMIA PO PRN ×2 (15:58→16:19)
[2022-09-08] MEDS: ACETAMINOPHEN 325 MG TAB PO PRN ×2 (16:00→20:43)
[2022-09-08] MEDS ORDERED: PHARMACY GLYCEMIC MGMT CONSULT PRN (16:31)
--- NOTE | 2022-09-08 16:37 | Cardiology Consultation ---
Date of Consultation September 08, 2022 Assessment & Plan (1) Probable sepsis: (2) Rigors: (3) Arthralgia: (4) CAD (coronary artery disease): Plan Patient is a 71-year-old male with complex history as described who presents now with diffuse arthralgias myalgias and weakness times several days duration today culminating in marked weakness rigors and chills Pattern consistent with probable acute sepsis Patient had blood cultures drawn in ER and treated empirically with antibiotic therapy. Patient still febrile and having rigors Review of initial cardiac studies revealed no acute cardiac concerns other than elevated blood pressure Recommendations: Continue outpatient cardiac medications with demand ischemia possible. Would hold atorvastatin given acute complaint myalgias and arthralgias. Add CPK to laboratory test Treat presumed sepsis Follow renal function closely History of Present Illness Reason for Consultation: Weakness malaise and arthralgias, atypical chest pain Rigors Requesting Physician: Dr. Encarnacion Attending Physician: Gabe Encarnacion MD History of Present Illness Patient is a 71-year-old male with complex constellation of medical issues including 1. Chronic atherosclerotic coronary disease with multivessel disease proximal LAD 80-90% stenosis, Ramus 70-80% stenosis in its midportion, Left circumflex 75% narrowing in its proximal 1/3, RCA moderate irregularities in the proximal mid RCA, PDA 90% stenosis in its distal portion, per cardiac catheterization 08/18/2021 2. S/p CABG x 5([id number],Ao-ramus-OM, Ao-PDA with reversed sa phenous vein), 08/19/2021 at [facility] 3. Hypertension 4. Hyperlipidemia 5. Type 2 diabetes with polyneuropathy, retinopathy, and nephropathy, stage IIIB 6. Recurrent DVT on chronic anticoagulation- Xarelto 7. Multiple sclerosis 8. Polymyalgia rheumatica Patient presents now noting recent hospitalization with discharge 5 weeks ago with diffuse viral syndrome myalgias and arthralgias. Patient slow to recover last several days with diffuse myalgias and arthralgias all arms with marked weakness difficulty walking increasing shortness of breath. 2 episodes of sharp stabbing chest pain yesterday but no sustained discomfort. Low-grade fever now higher since admit Rigors on presentation to the emergency and since admitted to the floor Notes tender to touch through multiple areas. No dysuria hematuria no bleeding difficulties Has been taking medication Appetite fair but no dysphagia EKG without acute changes Cardiac enzymes negative Chest x-ray without infiltrate Pertinent laboratory studies include elevated lactate, elevated white cell count with left shift Allergies Allergy/AdvReac Type Severity Reaction Status Date / Time morphine AdvReac Severe Vomiting Verified 07/25/22 00:16 rosuvastatin [From Crestor] AdvReac Intermediate Cramping Verified 07/25/22 00:16 of the Muscles Home Medications Medication Instructions Recorded Confirmed Type allopurinol 100 mg tablet 200 mg PO DAILY 07/25/22 09/08/22 History aspirin 81 mg chewable tablet 81 mg PO DAILY 07/25/22 09/08/22 History atorvastatin 80 mg tablet 80 mg PO QAM 07/25/22 09/08/22 History empagliflozin 25 mg tablet 25 mg PO DAILY 07/25/22 09/08/22 History (Jardiance) ezetimibe 10 mg tablet 10 mg PO QAM 07/25/22 09/08/22 History insulin glargine 100 unit/mL (3 32 unit subcut BID 07/25/22 09/08/22 History mL) subcutaneous pen (Basaglar KwikPen U-100 Insulin) metformin 500 mg tablet,extended 1,000 mg PO QAM 07/25/22 09/08/22 History release 24 hr metoprolol tartrate 50 mg tablet 50 mg PO BID 07/25/22 09/08/22 History rivaroxaban 20 mg tablet (Xarelto) 20 mg PO DAILY 07/25/22 09/08/22 History lisinopril 5 mg tablet 5 mg PO QAM 30 days #30 tabs 07/30/22 09/08/22 Rx dulaglutide 0.75 mg/0.5 mL 0.75 mg subcut WK 09/08/22 09/08/22 History subcutaneous pen injector (Trulicity) isosorbide mononitrate 60 mg 60 mg PO DAILY 09/08/22 09/08/22 History tablet,extended release 24 hr Patient History Medical History Anxiety Asthma in remission BPH (benign prostatic hyperplasia) BPH loc w urin obs/LUTS Broken rib r/t old sports injury, shows up on CXRs as abnormal, but was very remote (in college) and does not cause any pain. Cataract Chronic kidney disease Stage III. follows w/ dr. 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 Galloway, has not had symptoms beyond muscle twitches since the early Osteoarthritis PMR (polymyalgia rheumatica) Polyarthritis Precordial chest pain Prostate cancer screening SOB (shortness of breath) Supratherapeutic INR Thyroid nodule Surgical History H/O arthroscopic knee surgery History of appendectomy History of arthroscopy of left knee History of cardiac cath 15 years ago - CP led to cath - Lorraine - no stents/angioplasty, ruled indigestion - does not follow w/ cardio History of carpal tunnel release BL History of carpal tunnel surgery History of coronary artery bypass graft CABG X 5 ON 08/19/2021 ([id number], Ao-ramus-OM, Ao-PDA W/ rev SVG) History of cystoscopy History of knee joint replacement x 2 rt knee History of repair of rotator cuff BL History of surgery LLE - hardware present History of tooth extraction History of total right knee replacement S/P appendectomy S/P rotator cuff repair Status post biopsy of thyroid gland benign Family History Daughter History of anesthesia reaction PONV Grandfather (Paternal) Family history of diabetes mellitus Mother Family history of diabetes mellitus Father Family history of diabetes mellitus Social History Smoking Status: Never smoker Tobacco Type: Smokeless Tobacco (Dip or Chew) Second Hand Exposure: No; Hx Alcohol Use: No Hx Substance Use: No Preferred Language: Bahraini Communication Ability: Effective Manager Of Merchandising Required: No Beliefs That Will Affect Care: None marital status: Current Living Situation: Spouse current occupational status: retired current occupation: Retired Feels Safe at Home: Yes Assistive Devices: None Review of Systems Review of Systems: All systems reviewed & are unremarkable except as noted in HPI & below Physical Exam Constitutional: + ill appearing Eyes: PERRL, conjunctivae normal, anicteric sclerae ENMT: external ear and nose normal, oropharynx normal Neck: trachea midline, no thyromegaly Respiratory: normal respiratory effort Auscultation: no wheezes Cardiovascular: Rate/Rhythm: regular rate and regular rhythm Vessels: femoral pulses present and radial pulses present; no JVD Extremities: no edema Chest (Breasts): Additional Comments: Well-healed midline incision Musculoskeletal: no cyanosis or clubbing, extremities motor strength 5/5 Results & Data ([facility]) Vital Signs (Past 12 Hours) Vital Signs Temp Pulse Pulse Pulse Resp BP BP 09/08/22 15:49 38.1 C H 85 20 171/77 H 09/08/22 15:45 89 09/08/22 14:05 82 16 118/69 09/08/22 13:01 82 16 127/70 09/08/22 12:26 79 09/08/22 12:06 80 18 142/71 H 09/08/22 11:12 09/08/22 11:11 82 18 148/60 H 09/08/22 10:44 36 C L 84 18 125/80 Pulse Ox O2 Del Method 09/08/22 15:49 93 Room Air 09/08/22 15:45 09/08/22 14:05 95 Room Air 09/08/22 13:01 96 Room Air 09/08/22 12:26 09/08/22 12:06 96 Room Air 09/08/22 11:12 97 Room Air 09/08/22 11:11 97 Room Air 09/08/22 10:44 98 Room Air Laboratory Results Laboratory Results - last 24 hr 09/08/22 09/08/22 09/08/22 11:02 11:02 11:02 WBC 14.85 H RBC 5.06 Hgb 15.8 Hct 47.1 MCV 93.1 MCH 31.2 MCHC 33.5 RDW Std Deviation 49.1 H RDW Coeff of Leo 14.5 Plt Count 222 MPV 10.4 Immature Gran % (Auto) 0.3 Neut % (Auto) 79.5 Lymph % (Auto) 9.4 [place] % (Auto) 7.3 Eos % (Auto) 3.1 Baso % (Auto) 0.4 Neut # (Auto) 11.80 H Lymph # (Auto) 1.39 [place] # (Auto) 1.09 H Eos # (Auto) 0.46 Baso # (Auto) 0.06 Immature Gran # (Auto) 0.05 ESR Sodium 141 Potassium 4.3 Chloride 108 H Carbon Dioxide 24 Anion Gap 9 BUN 24 H Creatinine 1.59 H Est Cr Clr Drug Dosing 42.7 Est GFR ( Amer) 49.5 Est GFR (Non-Af Amer) 42.7 BUN/Creatinine Ratio 15.1 Glucose 96 POC Glucose Lactate Uric Acid 5.9 Calcium 9.8 Total Bilirubin 0.7 AST 19 ALT 25 Alkaline Phosphatase 68 Troponin I High Sens 8.0 C-Reactive Protein < 0.50 Total Protein 7.2 Albumin 4.2 Globulin 3.0 Albumin/Globulin Ratio 1.4 Lipase 24 Procalcitonin < 0.05 Urine Color Urine Appearance Urine pH Ur Specific [place] Urine Protein Urine Glucose (UA) Urine Ketones Urine Blood Urine Nitrite Urine Bilirubin Urine Urobilinogen Ur Leukocyte Esterase Urine WBC (Auto) Urine RBC (Auto) U Hyaline Cast (Auto) U Epithel Cells (Auto) Urine Bacteria (Auto) A. phagocytophilum DNA Lyme Disease IgG Ab Negative Lyme Disease IgM Ab Negative SARS-CoV-2 (PCR) Influenza Type A (PCR) Influenza Type B (PCR) RSV (RT-PCR) 09/08/22 09/08/22 09/08/22 11:02 11:12 11:50 WBC RBC Hgb Hct MCV MCH MCHC RDW Std Deviation RDW Coeff of Leo Plt Count MPV Immature Gran % (Auto) Neut % (Auto) Lymph % (Auto) [place] % (Auto) Eos % (Auto) Baso % (Auto) Neut # (Auto) Lymph # (Auto) [place] # (Auto) Eos # (Auto) Baso # (Auto) Immature Gran # (Auto) ESR Sodium Potassium Chloride Carbon Dioxide Anion Gap BUN Creatinine Est Cr Clr Drug Dosing Est GFR ( Amer) Est GFR (Non-Af Amer) BUN/Creatinine Ratio Glucose POC Glucose Lactate 2.3 H* Uric Acid Calcium Total Bilirubin AST ALT Alkaline Phosphatase Troponin I High Sens C-Reactive Protein Total Protein Albumin Globulin Albumin/Globulin Ratio Lipase Procalcitonin Urine Color Urine Appearance Urine pH Ur Specific [place] Urine Protein Urine Glucose (UA) Urine Ketones Urine Blood Urine Nitrite Urine Bilirubin Urine Urobilinogen Ur Leukocyte Esterase Urine WBC (Auto) Urine RBC (Auto) U Hyaline Cast (Auto) U Epithel Cells (Auto) Urine Bacteria (Auto) A. phagocytophilum DNA Pending Lyme Disease IgG Ab Lyme Disease IgM Ab SARS-CoV-2 (PCR) NEGATIVE Influenza Type A (PCR) Negative Influenza Type B (PCR) Negative RSV (RT-PCR) Negative 09/08/22 09/08/22 09/08/22 11:58 14:37 14:37 WBC RBC Hgb Hct MCV MCH MCHC RDW Std Deviation RDW Coeff of Leo Plt Count MPV Immature Gran % (Auto) Neut % (Auto) Lymph % (Auto) [place] % (Auto) Eos % (Auto) Baso % (Auto) Neut # (Auto) Lymph # (Auto) [place] # (Auto) Eos # (Auto) Baso # (Auto) Immature Gran # (Auto) ESR 22 H Sodium Potassium Chloride Carbon Dioxide Anion Gap BUN Creatinine Est Cr Clr Drug Dosing Est GFR ( Amer) Est GFR (Non-Af Amer) BUN/Creatinine Ratio Glucose POC Glucose Lactate 1.6 Uric Acid Calcium Total Bilirubin AST ALT Alkaline Phosphatase Troponin I High Sens C-Reactive Protein Total Protein Albumin Globulin Albumin/Globulin Ratio Lipase Procalcitonin Urine Color Yellow Urine Appearance Clear Urine pH 5.0 Ur Specific [place] 1.027 Urine Protein 3+ H Urine Glucose (UA) 3+ H Urine Ketones Trace H Urine Blood Negative Urine Nitrite Negative Urine Bilirubin Negative Urine Urobilinogen Negative Ur Leukocyte Esterase Negative Urine WBC (Auto) 1-5 Urine RBC (Auto) 0-4 U Hyaline Cast (Auto) 1-5 U Epithel Cells (Auto) 10-20 H Urine Bacteria (Auto) Negative A. phagocytophilum DNA Lyme Disease IgG Ab Lyme Disease IgM Ab SARS-CoV-2 (PCR) Influenza Type A (PCR) Influenza Type B (PCR) RSV (RT-PCR) 09/08/22 09/08/22 09/08/22 15:51 15:52 15:52 WBC RBC Hgb Hct MCV MCH MCHC RDW Std Deviation RDW Coeff of Leo Plt Count MPV Immature Gran % (Auto) Neut % (Auto) Lymph % (Auto) [place] % (Auto) Eos % (Auto) Baso % (Auto) Neut # (Auto) Lymph # (Auto) [place] # (Auto) Eos # (Auto) Baso # (Auto) Immature Gran # (Auto) ESR Sodium Potassium Chloride Carbon Dioxide Anion Gap BUN Creatinine Est Cr Clr Drug Dosing Est GFR ( Amer) Est GFR (Non-Af Amer) BUN/Creatinine Ratio Glucose POC Glucose 49 L* 56 L* 52 L* Lactate Uric Acid Calcium Total Bilirubin AST ALT Alkaline Phosphatase Troponin I High Sens C-Reactive Protein Total Protein Albumin Globulin Albumin/Globulin Ratio Lipase Procalcitonin Urine Color Urine Appearance Urine pH Ur Specific [place] Urine Protein Urine Glucose (UA) Urine Ketones Urine Blood Urine Nitrite Urine Bilirubin Urine Urobilinogen Ur Leukocyte Esterase Urine WBC (Auto) Urine RBC (Auto) U Hyaline Cast (Auto) U Epithel Cells (Auto) Urine Bacteria (Auto) A. phagocytophilum DNA Lyme Disease IgG Ab Lyme Disease IgM Ab SARS-CoV-2 (PCR) Influenza Type A (PCR) Influenza Type B (PCR) RSV (RT-PCR) 09/08/22 09/08/22 09/08/22 16:08 16:09 16:09 WBC RBC Hgb Hct MCV MCH MCHC RDW Std Deviation RDW Coeff of Leo Plt Count MPV Immature Gran % (Auto) Neut % (Auto) Lymph % (Auto) [place] % (Auto) Eos % (Auto) Baso % (Auto) Neut # (Auto) Lymph # (Auto) [place] # (Auto) Eos # (Auto) Baso # (Auto) Immature Gran # (Auto) ESR Sodium Potassium Chloride Carbon Dioxide Anion Gap BUN Creatinine Est Cr Clr Drug Dosing Est GFR ( Amer) Est GFR (Non-Af Amer) BUN/Creatinine Ratio Glucose POC Glucose 65 L* 64 L* 63 L* Lactate Uric Acid Calcium Total Bilirubin AST ALT Alkaline Phosphatase Troponin I High Sens C-Reactive Protein Total Protein Albumin Globulin Albumin/Globulin Ratio Lipase Procalcitonin Urine Color Urine Appearance Urine pH Ur Specific [place] Urine Protein Urine Glucose (UA) Urine Ketones Urine Blood Urine Nitrite Urine Bilirubin Urine Urobilinogen Ur Leukocyte Esterase Urine WBC (Auto) Urine RBC (Auto) U Hyaline Cast (Auto) U Epithel Cells (Auto) Urine Bacteria (Auto) A. phagocytophilum DNA Lyme Disease IgG Ab Lyme Disease IgM Ab SARS-CoV-2 (PCR) Influenza Type A (PCR) Influenza Type B (PCR) RSV (RT-PCR) 09/08/22 16:31 WBC RBC Hgb Hct MCV MCH MCHC RDW Std Deviation RDW Coeff of Leo Plt Count MPV Immature Gran % (Auto) Neut % (Auto) Lymph % (Auto) [place] % (Auto) Eos % (Auto) Baso % (Auto) Neut # (Auto) Lymph # (Auto) [place] # (Auto) Eos # (Auto) Baso # (Auto) Immature Gran # (Auto) ESR Sodium Potassium Chloride Carbon Dioxide Anion Gap BUN Creatinine Est Cr Clr Drug Dosing Est GFR ( Amer) Est GFR (Non-Af Amer) BUN/Creatinine Ratio Glucose POC Glucose 70 Lactate Uric Acid Calcium Total Bilirubin AST ALT Alkaline Phosphatase Troponin I High Sens C-Reactive Protein Total Protein Albumin Globulin Albumin/Globulin Ratio Lipase Procalcitonin Urine Color Urine Appearance Urine pH Ur Specific [place] Urine Protein Urine Glucose (UA) Urine Ketones Urine Blood Urine Nitrite Urine Bilirubin Urine Urobilinogen Ur Leukocyte Esterase Urine WBC (Auto) Urine RBC (Auto) U Hyaline Cast (Auto) U Epithel Cells (Auto) Urine Bacteria (Auto) A. phagocytophilum DNA Lyme Disease IgG Ab Lyme Disease IgM Ab SARS-CoV-2 (PCR) Influenza Type A (PCR) Influenza Type B (PCR) RSV (RT-PCR)
[2022-09-08] MEDS: ONDANSETRON INJ 2 MG/ML 2 ML VIAL IV PRN (17:38)
[2022-09-08] MEDS: INSULIN ASPART PER UNIT SC SCH ×2 (17:42→20:40)
[2022-09-08] MEDS ORDERED: IBUPROFEN 200 MG TAB PO STA (17:49)
[2022-09-08 17:50] LABS: Troponin I High Sensitivity 7.2 pg/ml (0-20)
[2022-09-08] MEDS ORDERED: SODIUM CHLORIDE 0.9% 1000ML 1,000 ML IV SCH (17:51)
[2022-09-08] MEDS: SODIUM CHLORIDE 0.9% 1000ML 1,000 ML IV SCH (18:04)
[2022-09-08] MEDS: DOXYCYCLINE HYCLATE 100 MG in DEXTROSE 5% 100 ML IV SCH (18:50)
[2022-09-08] MEDS: METOPROLOL TARTRATE 50 MG TAB PO SCH (20:44)
[2022-09-08] MEDS ORDERED: LANTUS PER UNIT CHARGE SQ SCH (21:00)
[2022-09-08] MEDS ORDERED: oxyCODONE HCL IR 5 MG TAB (IMMEDIATE RELEASE) PO STA (21:14)
--- NOTE | 2022-09-08 23:08 | Electrocardiogram Report ---
Test Reason : Blood Pressure : / mmHG Vent. Rate : 073 BPM Atrial Rate : 073 BPM P-R Int : 254 ms QRS Dur : 084 ms QT Int : 366 ms P-R-T Axes : 053 058 106 degrees QTc Int : 403 ms Sinus rhythm with 1st degree A-V block Septal infarct (cited on or before 29-JAN-2022) T wave abnormality, consider lateral ischemia Abnormal ECG When compared with ECG of 29-JUL-2022 20:23, No significant change Confirmed by Moises Hilario ([id number]) on 09/08/2022 11:07:48 PM Referred By: REFERRED SELF Confirmed By:Peewee Hilario
[2022-09-09] MEDS: INSULIN ASPART PER UNIT SC SCH ×6 (00:31→20:23)
[2022-09-09] MEDS: ACETAMINOPHEN 325 MG TAB PO PRN ×3 (04:16→19:58)
[2022-09-09] MEDS: DOXYCYCLINE HYCLATE 100 MG in DEXTROSE 5% 100 ML IV SCH ×2 (04:16→17:19)
[2022-09-09] MEDS: SODIUM CHLORIDE 0.9% 1000ML 1,000 ML IV SCH (06:26)
[2022-09-09] MEDS: ONDANSETRON INJ 2 MG/ML 2 ML VIAL IV PRN (07:54)
[2022-09-09] MEDS: allopurinoL 100 MG TAB PO SCH (07:58)
[2022-09-09] MEDS: ISOSORBIDE MONO EXTENDED REL 60 MG TABCR PO SCH (07:59)
[2022-09-09] MEDS: EZETIMIBE 10 MG TABLET PO SCH (07:59)
[2022-09-09] MEDS: lisinopril 5 MG TAB PO SCH (07:59)
[2022-09-09] MEDS: ASPIRIN 81 MG CHEW PO SCH (07:59)
[2022-09-09 08:00] LABS: BUN Creatinine Ratio 13.5 (10-20); Calcium 8.3 mg/dl (8.5-10.1); Creatinine Clr Calc Pharmacy 38.5 ml/min; Est GFR (African American) 43.2 ml/min; Est GFR (Non-African American) 37.3 ml/min; Potassium 3.9 mmol/L (3.5-5.1)
[2022-09-09] MEDS: METOPROLOL TARTRATE 50 MG TAB PO SCH ×2 (08:00→19:58)
[2022-09-09 08:11] LABS: Basophils # (auto) 0.04 K/uL (0-0.2); Basophils % (auto) 0.4 %; Eosinophils # (auto) 0.21 K/uL (0-0.50); Hematocrit (blood only) 36.9 % (42.0-52.0); Hemoglobin 12.2 g/dl (14.0-18.0); Immature Granulocytes # (auto) 0.06 K/uL (0.01-0.20); Immature Granulocytes % (auto) 0.6 %; Lymphocytes # (auto) 1.43 K/uL (1.2-3.4); Lymphocytes % (auto) 13.7 %; Mean Corpuscular Hemoglobin 31.4 pg (25.0-34.0); Mean Corpuscular Hgb Conc 33.1 g/dL (32.0-36.0); Mean Corpuscular Volume 95.1 fL (80.0-100.0); Mean Platelet Volume 10.8 fL (9.4-12.4); Monocytes # (auto) 1.06 K/uL (0.11-0.59); Monocytes % (auto) 10.1 %; Neutrophils # (auto) 7.65 K/uL (1.40-6.50); Neutrophils % (auto) 73.2 %; Platelet Count 170 K/uL (130-400); RDW Coefficient of Variation 14.6 % (11.5-14.5); RDW Standard Deviation 50.2 fL (36.4-46.3); Red Blood Count 3.88 M/uL (4.70-6.10); White Blood Count 10.45 K/ul (4.8-10.8)
--- NOTE | 2022-09-09 08:52 | Hospitalist Progress Note ---
Date of Service September 09, 2022 Assessment & Plan (1) Arthralgia: (2) Generalized weakness: Plan: Patient is 71-year-old male with PMH CAD, NSTEMI s/p CABG 08/19/2021, chronic stable angina, HTN, HLD, DM II, CKD III, MS, gout, multinodular goiter, polymyalgia rheumatica, h/o DVT on chronic anticoagulation with Xarelto presented to ER with c/o onset diffuse bilateral arthralgias. Pt then also spiked fever and had rigors immediately after admission. DDX: sepsis/bacteremia, PMR, MS flare, GCA Negative Lyme Anaplasma pending ESR: 22, CRP: < 0.5 Infectious work-up as below CT head: No acute findings Fall precautions Neurology consult Spoke with lamp stack developer, Dr Lock on phone on admission. Since inflammatory markers are relatively unremarkable recommends if blood cultures negative and no source of infection to start 10-20mg prednisone daily. this was however before pt spiked fever. (3) Rigors: Plan: DDX: sepsis/bacteremia Rigors noted in ER. Afebrile in ER. Vital stable. Pt became febrile shortly after admission. Denies cough, vomiting, diarrhea, urinary symptoms WBC: 14. UA unremarkable. CXR: No infiltrate. Procalcitonin WNL. Negative SARS-CoV-2 PCR, negative influenza and RSV PCR Lactate: 2.3-->1.6 Blood cultures pending In ER given Rocephin, 1L NSS Continue Rocephin, added doxycycline. If would have continued fevers may need to consider more broad spectrum antibiotics anaplasma pending repeated respiratory biofire -full panel (patient history of influenza during last admission recently, influenza negative in the ED, influenza equivocal results on repeat BioFire) Currently afebrile after starting Abx (4) Chest pain: (5) CAD (coronary artery disease): Plan: CAD, NSTEMI s/p CABG 08/19/2021, chronic stable angina Recent hospital admission 07/25/2022- 07/30/2022 for DKA, influenza A, type II NSTEMI in setting of demand ischemia. 07/25/2022 echo: Moderate concentric LVH, mild hypokinesis inferior and septal apex, grade 1 diastolic dysfunction 07/28/2022 echo: EF: 65-70%, moderate concentric LVH, no regional wall motion abnormalities Episode midsternal nonradiating chest pain with associated nausea, lightheadedness today around 7:30 AM Denies current chest pain or shortness of breath Initial high-sensitivity troponin: 8. EKG without acute ST elevation Trended troponin Continue aspirin, atorvastatin, isosorbide, metoprolol tartrate Cardiology consulted, and concern for possible pericarditis, limited echo ordered (6) DM type 2 (diabetes mellitus, type 2): Plan: A1c: 10.7 % on 07/25/2022 Hold home glycemic agents Basal bolus insulin per protocol (7) CKD (chronic kidney disease), stage III: Plan: Cr: 1.59. Baseline 1.4-1.6 per outpatient chart review Monitor renal functions, avoid nephrotoxic agents when possible (8) Hypertension: Plan: Stable Continue lisinopril, metoprolol tartrate (9) Deep vein thrombosis: Plan: History of DVT. Chronically anticoagulated on Xarelto Continue Xarelto (10) PMR (polymyalgia rheumatica): Plan: Follows with rheumatology, Dr. Lock (11) Multiple sclerosis: Plan: Follows with neurology, Dr. Galloway Outpatient neurology note reviewed: Reported vague history of MS based on symptoms of fatigue, numbness in feet and abnormal MRI scans in the past. Patient has had clinically inactive symptoms throughout and had never received disease modifying therapy Neurology consulted given "vision changes" reported by the pt prior to admission. (12) Gout: Plan: Continue allopurinol DVT Prophylaxis On Xarelto DNR/DNI as per discussion with pt Follows with Dr Chen for routine care Admission and Anticipated Discharge Date Admission Date: September 08, 2022 Subjective Pt is 71-year-old male with PMH CAD, NSTEMI s/p CABG 08/19/2021, chronic stable angina, HTN, HLD, DM II, CKD III, MS, gout, multinodular goiter, polymyalgia rheumatica, h/o DVT on chronic anticoagulation with Xarelto presented to ER with c/o onset diffuse bilateral arthralgias. Febrile w/ rigors shortly after admission. Infectious source currently not identified. Chest x-ray negative, UA negative, lyme negative. blood cultures obtained and pending. Patient was started on empiric antibiotic Seen by cardiology, limited echo ordered to evaluate for possible pericarditis. Patient is developing some edema in his hands, left lower extremity, IV fluids stopped. Patient afebrile now. Feeling somewhat better. No abdominal pain nausea vomiting at this time Family at the bedside and updated Review of Systems Review of Systems: All systems reviewed & are unremarkable except as noted in Subjective Physical Exam Physical Exam: General: no distress, WDWN Head: normocephalic, atraumatic Eyes: PERRL, EOM's intact, conjunctiva non-injected, anicteric ENT: normal inspection external ears, nose, mucous membranes moist Neck: supple Lungs: clear, no respiratory distress, no wheezing/rhonchi/rales CV: RRR, no murmur, no JVD, no pretibial edema Abd: normal BS, soft, non-tender Ext: no cyanosis, no calf tenderness, +limited flexion and extension of bilateral fingers secondary to tenderness/stiffness. No erythema noted to joints but with +diffuse tenderness to palpation, bilateral shoulders, bilateral elbows, bilateral wrists, fingers, bilateral hips, bilateral knees and ankles and feet. Neuro: A&O x 3, no focal deficits noted, normal affect Skin: warm, dry Results & Data Results & Data ([facility]) Vital Signs (Past 12 Hours) Vital Signs Temp Pulse Pulse Resp BP Pulse Ox O2 Del Method 09/09/22 07:15 36.9 C 70 16 103/65 93 Room Air 09/09/22 04:00 37.1 C 69 18 105/63 92 Room Air 09/09/22 00:48 87 09/08/22 23:13 36.8 C 80 18 115/69 93 Room Air Laboratory Results 09/09/22 09/09/22 09/09/22 Range/Units 07:12 06:39 06:39 WBC 10.45 (4.8-10.8) K/ul RBC 3.88 L (4.70-6.10) M/uL Hgb 12.2 L D (14.0-18.0) g/dl Hct 36.9 L (42.0-52.0) % MCV 95.1 (80.0-100.0) fL MCH 31.4 (25.0-34.0) pg MCHC 33.1 (32.0-36.0) g/dL RDW Std Deviation 50.2 H (36.4-46.3) fL RDW Coeff of Leo 14.6 H (11.5-14.5) % Plt Count 170 (130-400) K/uL MPV 10.8 (9.4-12.4) fL Immature Gran % (Auto) 0.6 % Neut % (Auto) 73.2 % Lymph % (Auto) 13.7 % Clinch % (Auto) 10.1 % Eos % (Auto) 2.0 % Baso % (Auto) 0.4 % Neut # (Auto) 7.65 H (1.40-6.50) K/uL Lymph # (Auto) 1.43 (1.2-3.4) K/uL Clinch # (Auto) 1.06 H (0.11-0.59) K/uL Eos # (Auto) 0.21 (0-0.50) K/uL Baso # (Auto) 0.04 (0-0.2) K/uL Immature Gran # (Auto) 0.06 (0.01-0.20) K/uL ESR (0-20) mm/hr Sodium 136 (136-145) mmol/L Potassium 3.9 (3.5-5.1) mmol/L Chloride 106 (98-107) mmol/L Carbon Dioxide 22 (21-32) mmol/L Anion Gap 8 (3-11) BUN 24 H (6-23) mg/dl Creatinine 1.78 H (0.6-1.4) mg/dl Est Cr Clr Drug Dosing 38.5 ml/min Est GFR ( Amer) 43.2 ml/min Est GFR (Non-Af Amer) 37.3 ml/min BUN/Creatinine Ratio 13.5 (10-20) Glucose 150 H (70-99(Fasting)) mg/dl POC Glucose 127 H (70-99) mg/dl Lactate (0.4-2.0) mmol/L Uric Acid (2.6-7.2) mg/dl Calcium 8.3 L (8.5-10.1) mg/dl Total Bilirubin (0.2-1.0) mg/dl AST (13-39) U/L ALT (7-52) U/L Alkaline Phosphatase (34-104) U/L Total Creatine Kinase (30-223) U/L Troponin I High Sens (0-20) pg/ml C-Reactive Protein (0-0.5) mg/dl Total Protein (6.0-8.3) gm/dl Albumin (3.4-5.0) gm/dl Globulin (2.5-4.0) gm/dl Albumin/Globulin Ratio (0.9-2) Lipase (11-82) U/L Procalcitonin (0-0.5) ng/ml Urine Color Urine Appearance (Clear) Urine pH (4.5-7.5) Ur Specific [place] (1.000-1.030) Urine Protein (Negative) Urine Glucose (UA) (Negative) Urine Ketones (Negative) Urine Blood (Negative) Urine Nitrite (Negative) Urine Bilirubin (Negative) Urine Urobilinogen (Negative) Ur Leukocyte Esterase (Negative) Urine WBC (Auto) (0-5) /hpf Urine RBC (Auto) (0-4) /hpf U Hyaline Cast (Auto) (0-5) /lpf U Epithel Cells (Auto) (0-5) /lpf Urine Bacteria (Auto) (Negative) A. phagocytophilum DNA Lyme Disease IgG Ab (Negative) Lyme Disease IgM Ab (Negative) SARS-CoV-2 (PCR) (Negative) Influenza Type A (PCR) (Neg) Influenza Type B (PCR) (Neg) RSV (RT-PCR) (Neg) 09/09/22 09/09/22 09/08/22 Range/Units 04:03 00:10 22:55 WBC (4.8-10.8) K/ul RBC (4.70-6.10) M/uL Hgb (14.0-18.0) g/dl Hct (42.0-52.0) % MCV (80.0-100.0) fL MCH (25.0-34.0) pg MCHC (32.0-36.0) g/dL RDW Std Deviation (36.4-46.3) fL RDW Coeff of Leo (11.5-14.5) % Plt Count (130-400) K/uL MPV (9.4-12.4) fL Immature Gran % (Auto) % Neut % (Auto) % Lymph % (Auto) % Clinch % (Auto) % Eos % (Auto) % Baso % (Auto) % Neut # (Auto) (1.40-6.50) K/uL Lymph # (Auto) (1.2-3.4) K/uL Clinch # (Auto) (0.11-0.59) K/uL Eos # (Auto) (0-0.50) K/uL Baso # (Auto) (0-0.2) K/uL Immature Gran # (Auto) (0.01-0.20) K/uL ESR (0-20) mm/hr Sodium (136-145) mmol/L Potassium (3.5-5.1) mmol/L Chloride (98-107) mmol/L Carbon Dioxide (21-32) mmol/L Anion Gap (3-11) BUN (6-23) mg/dl Creatinine (0.6-1.4) mg/dl Est Cr Clr Drug Dosing ml/min Est GFR ( Amer) ml/min Est GFR (Non-Af Amer) ml/min BUN/Creatinine Ratio (10-20) Glucose (70-99(Fasting)) mg/dl POC Glucose 92 103 H (70-99) mg/dl Lactate (0.4-2.0) mmol/L Uric Acid (2.6-7.2) mg/dl Calcium (8.5-10.1) mg/dl Total Bilirubin (0.2-1.0) mg/dl AST (13-39) U/L ALT (7-52) U/L Alkaline Phosphatase (34-104) U/L Total Creatine Kinase (30-223) U/L Troponin I High Sens 11.0 (0-20) pg/ml C-Reactive Protein (0-0.5) mg/dl Total Protein (6.0-8.3) gm/dl Albumin (3.4-5.0) gm/dl Globulin (2.5-4.0) gm/dl Albumin/Globulin Ratio (0.9-2) Lipase (11-82) U/L Procalcitonin (0-0.5) ng/ml Urine Color Urine Appearance (Clear) Urine pH (4.5-7.5) Ur Specific [place] (1.000-1.030) Urine Protein (Negative) Urine Glucose (UA) (Negative) Urine Ketones (Negative) Urine Blood (Negative) Urine Nitrite (Negative) Urine Bilirubin (Negative) Urine Urobilinogen (Negative) Ur Leukocyte Esterase (Negative) Urine WBC (Auto) (0-5) /hpf Urine RBC (Auto) (0-4) /hpf U Hyaline Cast (Auto) (0-5) /lpf U Epithel Cells (Auto) (0-5) /lpf Urine Bacteria (Auto) (Negative) A. phagocytophilum DNA Lyme Disease IgG Ab (Negative) Lyme Disease IgM Ab (Negative) SARS-CoV-2 (PCR) (Negative) Influenza Type A (PCR) (Neg) Influenza Type B (PCR) (Neg) RSV (RT-PCR) (Neg) 09/08/22 09/08/22 09/08/22 Range/Units 20:38 16:52 16:31 WBC (4.8-10.8) K/ul RBC (4.70-6.10) M/uL Hgb (14.0-18.0) g/dl Hct (42.0-52.0) % MCV (80.0-100.0) fL MCH (25.0-34.0) pg MCHC (32.0-36.0) g/dL RDW Std Deviation (36.4-46.3) fL RDW Coeff of Leo (11.5-14.5) % Plt Count (130-400) K/uL MPV (9.4-12.4) fL Immature Gran % (Auto) % Neut % (Auto) % Lymph % (Auto) % Clinch % (Auto) % Eos % (Auto) % Baso % (Auto) % Neut # (Auto) (1.40-6.50) K/uL Lymph # (Auto) (1.2-3.4) K/uL Clinch # (Auto) (0.11-0.59) K/uL Eos # (Auto) (0-0.50) K/uL Baso # (Auto) (0-0.2) K/uL Immature Gran # (Auto) (0.01-0.20) K/uL ESR (0-20) mm/hr Sodium (136-145) mmol/L Potassium (3.5-5.1) mmol/L Chloride (98-107) mmol/L Carbon Dioxide (21-32) mmol/L Anion Gap (3-11) BUN (6-23) mg/dl Creatinine (0.6-1.4) mg/dl Est Cr Clr Drug Dosing ml/min Est GFR ( Amer) ml/min Est GFR (Non-Af Amer) ml/min BUN/Creatinine Ratio (10-20) Glucose (70-99(Fasting)) mg/dl POC Glucose 79 70 (70-99) mg/dl Lactate (0.4-2.0) mmol/L Uric Acid (2.6-7.2) mg/dl Calcium (8.5-10.1) mg/dl Total Bilirubin (0.2-1.0) mg/dl AST (13-39) U/L ALT (7-52) U/L Alkaline Phosphatase (34-104) U/L Total Creatine Kinase 36 (30-223) U/L Troponin I High Sens 7.2 (0-20) pg/ml C-Reactive Protein (0-0.5) mg/dl Total Protein (6.0-8.3) gm/dl Albumin (3.4-5.0) gm/dl Globulin (2.5-4.0) gm/dl Albumin/Globulin Ratio (0.9-2) Lipase (11-82) U/L Procalcitonin (0-0.5) ng/ml Urine Color Urine Appearance (Clear) Urine pH (4.5-7.5) Ur Specific [place] (1.000-1.030) Urine Protein (Negative) Urine Glucose (UA) (Negative) Urine Ketones (Negative) Urine Blood (Negative) Urine Nitrite (Negative) Urine Bilirubin (Negative) Urine Urobilinogen (Negative) Ur Leukocyte Esterase (Negative) Urine WBC (Auto) (0-5) /hpf Urine RBC (Auto) (0-4) /hpf U Hyaline Cast (Auto) (0-5) /lpf U Epithel Cells (Auto) (0-5) /lpf Urine Bacteria (Auto) (Negative) A. phagocytophilum DNA Lyme Disease IgG Ab (Negative) Lyme Disease IgM Ab (Negative) SARS-CoV-2 (PCR) (Negative) Influenza Type A (PCR) (Neg) Influenza Type B (PCR) (Neg) RSV (RT-PCR) (Neg) 09/08/22 09/08/22 09/08/22 Range/Units 16:09 16:09 16:08 WBC (4.8-10.8) K/ul RBC (4.70-6.10) M/uL Hgb (14.0-18.0) g/dl Hct (42.0-52.0) % MCV (80.0-100.0) fL MCH (25.0-34.0) pg MCHC (32.0-36.0) g/dL RDW Std Deviation (36.4-46.3) fL RDW Coeff of Leo (11.5-14.5) % Plt Count (130-400) K/uL MPV (9.4-12.4) fL Immature Gran % (Auto) % Neut % (Auto) % Lymph % (Auto) % Clinch % (Auto) % Eos % (Auto) % Baso % (Auto) % Neut # (Auto) (1.40-6.50) K/uL Lymph # (Auto) (1.2-3.4) K/uL Clinch # (Auto) (0.11-0.59) K/uL Eos # (Auto) (0-0.50) K/uL Baso # (Auto) (0-0.2) K/uL Immature Gran # (Auto) (0.01-0.20) K/uL ESR (0-20) mm/hr Sodium (136-145) mmol/L Potassium (3.5-5.1) mmol/L Chloride (98-107) mmol/L Carbon Dioxide (21-32) mmol/L Anion Gap (3-11) BUN (6-23) mg/dl Creatinine (0.6-1.4) mg/dl Est Cr Clr Drug Dosing ml/min Est GFR ( Amer) ml/min Est GFR (Non-Af Amer) ml/min BUN/Creatinine Ratio (10-20) Glucose (70-99(Fasting)) mg/dl POC Glucose 63 L* 64 L* 65 L* (70-99) mg/dl Lactate (0.4-2.0) mmol/L Uric Acid (2.6-7.2) mg/dl Calcium (8.5-10.1) mg/dl Total Bilirubin (0.2-1.0) mg/dl AST (13-39) U/L ALT (7-52) U/L Alkaline Phosphatase (34-104) U/L Total Creatine Kinase (30-223) U/L Troponin I High Sens (0-20) pg/ml C-Reactive Protein (0-0.5) mg/dl Total Protein (6.0-8.3) gm/dl Albumin (3.4-5.0) gm/dl Globulin (2.5-4.0) gm/dl Albumin/Globulin Ratio (0.9-2) Lipase (11-82) U/L Procalcitonin (0-0.5) ng/ml Urine Color Urine Appearance (Clear) Urine pH (4.5-7.5) Ur Specific [place] (1.000-1.030) Urine Protein (Negative) Urine Glucose (UA) (Negative) Urine Ketones (Negative) Urine Blood (Negative) Urine Nitrite (Negative) Urine Bilirubin (Negative) Urine Urobilinogen (Negative) Ur Leukocyte Esterase (Negative) Urine WBC (Auto) (0-5) /hpf Urine RBC (Auto) (0-4) /hpf U Hyaline Cast (Auto) (0-5) /lpf U Epithel Cells (Auto) (0-5) /lpf Urine Bacteria (Auto) (Negative) A. phagocytophilum DNA Lyme Disease IgG Ab (Negative) Lyme Disease IgM Ab (Negative) SARS-CoV-2 (PCR) (Negative) Influenza Type A (PCR) (Neg) Influenza Type B (PCR) (Neg) RSV (RT-PCR) (Neg) 09/08/22 09/08/22 09/08/22 Range/Units 15:52 15:52 15:51 WBC (4.8-10.8) K/ul RBC (4.70-6.10) M/uL Hgb (14.0-18.0) g/dl Hct (42.0-52.0) % MCV (80.0-100.0) fL MCH (25.0-34.0) pg MCHC (32.0-36.0) g/dL RDW Std Deviation (36.4-46.3) fL RDW Coeff of Leo (11.5-14.5) % Plt Count (130-400) K/uL MPV (9.4-12.4) fL Immature Gran % (Auto) % Neut % (Auto) % Lymph % (Auto) % Clinch % (Auto) % Eos % (Auto) % Baso % (Auto) % Neut # (Auto) (1.40-6.50) K/uL Lymph # (Auto) (1.2-3.4) K/uL Clinch # (Auto) (0.11-0.59) K/uL Eos # (Auto) (0-0.50) K/uL Baso # (Auto) (0-0.2) K/uL Immature Gran # (Auto) (0.01-0.20) K/uL ESR (0-20) mm/hr Sodium (136-145) mmol/L Potassium (3.5-5.1) mmol/L Chloride (98-107) mmol/L Carbon Dioxide (21-32) mmol/L Anion Gap (3-11) BUN (6-23) mg/dl Creatinine (0.6-1.4) mg/dl Est Cr Clr Drug Dosing ml/min Est GFR ( Amer) ml/min Est GFR (Non-Af Amer) ml/min BUN/Creatinine Ratio (10-20) Glucose (70-99(Fasting)) mg/dl POC Glucose 52 L* 56 L* 49 L* (70-99) mg/dl Lactate (0.4-2.0) mmol/L Uric Acid (2.6-7.2) mg/dl Calcium (8.5-10.1) mg/dl Total Bilirubin (0.2-1.0) mg/dl AST (13-39) U/L ALT (7-52) U/L Alkaline Phosphatase (34-104) U/L Total Creatine Kinase (30-223) U/L Troponin I High Sens (0-20) pg/ml C-Reactive Protein (0-0.5) mg/dl Total Protein (6.0-8.3) gm/dl Albumin (3.4-5.0) gm/dl Globulin (2.5-4.0) gm/dl Albumin/Globulin Ratio (0.9-2) Lipase (11-82) U/L Procalcitonin (0-0.5) ng/ml Urine Color Urine Appearance (Clear) Urine pH (4.5-7.5) Ur Specific [place] (1.000-1.030) Urine Protein (Negative) Urine Glucose (UA) (Negative) Urine Ketones (Negative) Urine Blood (Negative) Urine Nitrite (Negative) Urine Bilirubin (Negative) Urine Urobilinogen (Negative) Ur Leukocyte Esterase (Negative) Urine WBC (Auto) (0-5) /hpf Urine RBC (Auto) (0-4) /hpf U Hyaline Cast (Auto) (0-5) /lpf U Epithel Cells (Auto) (0-5) /lpf Urine Bacteria (Auto) (Negative) A. phagocytophilum DNA Lyme Disease IgG Ab (Negative) Lyme Disease IgM Ab (Negative) SARS-CoV-2 (PCR) (Negative) Influenza Type A (PCR) (Neg) Influenza Type B (PCR) (Neg) RSV (RT-PCR) (Neg) 09/08/22 09/08/22 09/08/22 Range/Units 14:37 14:37 11:58 WBC (4.8-10.8) K/ul RBC (4.70-6.10) M/uL Hgb (14.0-18.0) g/dl Hct (42.0-52.0) % MCV (80.0-100.0) fL MCH (25.0-34.0) pg MCHC (32.0-36.0) g/dL RDW Std Deviation (36.4-46.3) fL RDW Coeff of Leo (11.5-14.5) % Plt Count (130-400) K/uL MPV (9.4-12.4) fL Immature Gran % (Auto) % Neut % (Auto) % Lymph % (Auto) % Clinch % (Auto) % Eos % (Auto) % Baso % (Auto) % Neut # (Auto) (1.40-6.50) K/uL Lymph # (Auto) (1.2-3.4) K/uL Clinch # (Auto) (0.11-0.59) K/uL Eos # (Auto) (0-0.50) K/uL Baso # (Auto) (0-0.2) K/uL Immature Gran # (Auto) (0.01-0.20) K/uL ESR 22 H (0-20) mm/hr Sodium (136-145) mmol/L Potassium (3.5-5.1) mmol/L Chloride (98-107) mmol/L Carbon Dioxide (21-32) mmol/L Anion Gap (3-11) BUN (6-23) mg/dl Creatinine (0.6-1.4) mg/dl Est Cr Clr Drug Dosing ml/min Est GFR ( Amer) ml/min Est GFR (Non-Af Amer) ml/min BUN/Creatinine Ratio (10-20) Glucose (70-99(Fasting)) mg/dl POC Glucose (70-99) mg/dl Lactate 1.6 (0.4-2.0) mmol/L Uric Acid (2.6-7.2) mg/dl Calcium (8.5-10.1) mg/dl Total Bilirubin (0.2-1.0) mg/dl AST (13-39) U/L ALT (7-52) U/L Alkaline Phosphatase (34-104) U/L Total Creatine Kinase (30-223) U/L Troponin I High Sens (0-20) pg/ml C-Reactive Protein (0-0.5) mg/dl Total Protein (6.0-8.3) gm/dl Albumin (3.4-5.0) gm/dl Globulin (2.5-4.0) gm/dl Albumin/Globulin Ratio (0.9-2) Lipase (11-82) U/L Procalcitonin (0-0.5) ng/ml Urine Color Yellow Urine Appearance Clear (Clear) Urine pH 5.0 (4.5-7.5) Ur Specific [place] 1.027 (1.000-1.030) Urine Protein 3+ H (Negative) Urine Glucose (UA) 3+ H (Negative) Urine Ketones Trace H (Negative) Urine Blood Negative (Negative) Urine Nitrite Negative (Negative) Urine Bilirubin Negative (Negative) Urine Urobilinogen Negative (Negative) Ur Leukocyte Esterase Negative (Negative) Urine WBC (Auto) 1-5 (0-5) /hpf Urine RBC (Auto) 0-4 (0-4) /hpf U Hyaline Cast (Auto) 1-5 (0-5) /lpf U Epithel Cells (Auto) 10-20 H (0-5) /lpf Urine Bacteria (Auto) Negative (Negative) A. phagocytophilum DNA Lyme Disease IgG Ab (Negative) Lyme Disease IgM Ab (Negative) SARS-CoV-2 (PCR) (Negative) Influenza Type A (PCR) (Neg) Influenza Type B (PCR) (Neg) RSV (RT-PCR) (Neg) 09/08/22 09/08/22 09/08/22 Range/Units 11:50 11:12 11:02 WBC (4.8-10.8) K/ul RBC (4.70-6.10) M/uL Hgb (14.0-18.0) g/dl Hct (42.0-52.0) % MCV (80.0-100.0) fL MCH (25.0-34.0) pg MCHC (32.0-36.0) g/dL RDW Std Deviation (36.4-46.3) fL RDW Coeff of Leo (11.5-14.5) % Plt Count (130-400) K/uL MPV (9.4-12.4) fL Immature Gran % (Auto) % Neut % (Auto) % Lymph % (Auto) % Clinch % (Auto) % Eos % (Auto) % Baso % (Auto) % Neut # (Auto) (1.40-6.50) K/uL Lymph # (Auto) (1.2-3.4) K/uL Clinch # (Auto) (0.11-0.59) K/uL Eos # (Auto) (0-0.50) K/uL Baso # (Auto) (0-0.2) K/uL Immature Gran # (Auto) (0.01-0.20) K/uL ESR (0-20) mm/hr Sodium (136-145) mmol/L Potassium (3.5-5.1) mmol/L Chloride (98-107) mmol/L Carbon Dioxide (21-32) mmol/L Anion Gap (3-11) BUN (6-23) mg/dl Creatinine (0.6-1.4) mg/dl Est Cr Clr Drug Dosing ml/min Est GFR ( Amer) ml/min Est GFR (Non-Af Amer) ml/min BUN/Creatinine Ratio (10-20) Glucose (70-99(Fasting)) mg/dl POC Glucose (70-99) mg/dl Lactate 2.3 H* (0.4-2.0) mmol/L Uric Acid (2.6-7.2) mg/dl Calcium (8.5-10.1) mg/dl Total Bilirubin (0.2-1.0) mg/dl AST (13-39) U/L ALT (7-52) U/L Alkaline Phosphatase (34-104) U/L Total Creatine Kinase (30-223) U/L Troponin I High Sens (0-20) pg/ml C-Reactive Protein (0-0.5) mg/dl Total Protein (6.0-8.3) gm/dl Albumin (3.4-5.0) gm/dl Globulin (2.5-4.0) gm/dl Albumin/Globulin Ratio (0.9-2) Lipase (11-82) U/L Procalcitonin (0-0.5) ng/ml Urine Color Urine Appearance (Clear) Urine pH (4.5-7.5) Ur Specific [place] (1.000-1.030) Urine Protein (Negative) Urine Glucose (UA) (Negative) Urine Ketones (Negative) Urine Blood (Negative) Urine Nitrite (Negative) Urine Bilirubin (Negative) Urine Urobilinogen (Negative) Ur Leukocyte Esterase (Negative) Urine WBC (Auto) (0-5) /hpf Urine RBC (Auto) (0-4) /hpf U Hyaline Cast (Auto) (0-5) /lpf U Epithel Cells (Auto) (0-5) /lpf Urine Bacteria (Auto) (Negative) A. phagocytophilum DNA Pending Lyme Disease IgG Ab (Negative) Lyme Disease IgM Ab (Negative) SARS-CoV-2 (PCR) NEGATIVE (Negative) Influenza Type A (PCR) Negative (Neg) Influenza Type B (PCR) Negative (Neg) RSV (RT-PCR) Negative (Neg) 09/08/22 09/08/22 09/08/22 Range/Units 11:02 11:02 11:02 WBC 14.85 H (4.8-10.8) K/ul RBC 5.06 (4.70-6.10) M/uL Hgb 15.8 (14.0-18.0) g/dl Hct 47.1 (42.0-52.0) % MCV 93.1 (80.0-100.0) fL MCH 31.2 (25.0-34.0) pg MCHC 33.5 (32.0-36.0) g/dL RDW Std Deviation 49.1 H (36.4-46.3) fL RDW Coeff of Leo 14.5 (11.5-14.5) % Plt Count 222 (130-400) K/uL MPV 10.4 (9.4-12.4) fL Immature Gran % (Auto) 0.3 % Neut % (Auto) 79.5 % Lymph % (Auto) 9.4 % Clinch % (Auto) 7.3 % Eos % (Auto) 3.1 % Baso % (Auto) 0.4 % Neut # (Auto) 11.80 H (1.40-6.50) K/uL Lymph # (Auto) 1.39 (1.2-3.4) K/uL Clinch # (Auto) 1.09 H (0.11-0.59) K/uL Eos # (Auto) 0.46 (0-0.50) K/uL Baso # (Auto) 0.06 (0-0.2) K/uL Immature Gran # (Auto) 0.05 (0.01-0.20) K/uL ESR (0-20) mm/hr Sodium 141 (136-145) mmol/L Potassium 4.3 (3.5-5.1) mmol/L Chloride 108 H (98-107) mmol/L Carbon Dioxide 24 (21-32) mmol/L Anion Gap 9 (3-11) BUN 24 H (6-23) mg/dl Creatinine 1.59 H (0.6-1.4) mg/dl Est Cr Clr Drug Dosing 42.7 ml/min Est GFR ( Amer) 49.5 ml/min Est GFR (Non-Af Amer) 42.7 ml/min BUN/Creatinine Ratio 15.1 (10-20) Glucose 96 (70-99(Fasting)) mg/dl POC Glucose (70-99) mg/dl Lactate (0.4-2.0) mmol/L Uric Acid 5.9 (2.6-7.2) mg/dl Calcium 9.8 (8.5-10.1) mg/dl Total Bilirubin 0.7 (0.2-1.0) mg/dl AST 19 (13-39) U/L ALT 25 (7-52) U/L Alkaline Phosphatase 68 (34-104) U/L Total Creatine Kinase (30-223) U/L Troponin I High Sens 8.0 (0-20) pg/ml C-Reactive Protein < 0.50 (0-0.5) mg/dl Total Protein 7.2 (6.0-8.3) gm/dl Albumin 4.2 (3.4-5.0) gm/dl Globulin 3.0 (2.5-4.0) gm/dl Albumin/Globulin Ratio 1.4 (0.9-2) Lipase 24 (11-82) U/L Procalcitonin < 0.05 (0-0.5) ng/ml Urine Color Urine Appearance (Clear) Urine pH (4.5-7.5) Ur Specific [place] (1.000-1.030) Urine Protein (Negative) Urine Glucose (UA) (Negative) Urine Ketones (Negative) Urine Blood (Negative) Urine Nitrite (Negative) Urine Bilirubin (Negative) Urine Urobilinogen (Negative) Ur Leukocyte Esterase (Negative) Urine WBC (Auto) (0-5) /hpf Urine RBC (Auto) (0-4) /hpf U Hyaline Cast (Auto) (0-5) /lpf U Epithel Cells (Auto) (0-5) /lpf Urine Bacteria (Auto) (Negative) A. phagocytophilum DNA Lyme Disease IgG Ab Negative (Negative) Lyme Disease IgM Ab Negative (Negative) SARS-CoV-2 (PCR) (Negative) Influenza Type A (PCR) (Neg) Influenza Type B (PCR) (Neg) RSV (RT-PCR) (Neg) Medications Administered Current Inpatient Medications Acetaminophen (Acetaminophen 325 Mg Tab) 650 mg PO Q4H PRN PRN Reason: Pain or Fever Stop: 10/08/22 15:42 Last Admin: 09/09/22 07:53 Dose: 650 mg Allopurinol (Allopurinol 100 Mg Tab) 200 mg PO DAILY JOYCE Stop: 10/09/22 08:59 Last Admin: 09/09/22 07:58 Dose: 200 mg Aspirin (Aspirin 81 Mg Chew) 81 mg PO DAILY JOYCE Stop: 10/09/22 08:59 Last Admin: 09/09/22 07:59 Dose: 81 mg Dextrose (Dextrose 50% 50 Ml Syringe) 25 - 50 ml IV UD PRN; Protocol PRN Reason: Hypoglycemia Protocol Stop: 10/08/22 15:42 Ezetimibe (Ezetimibe 10 Mg Tablet) 10 mg PO QAM [facility] Stop: 10/09/22 08:59 Last Admin: 09/09/22 07:59 Dose: 10 mg Glucagon (Glucagon For Inj 1 Mg Vial) 1 mg SQ UD PRN; Protocol PRN Reason: Hypoglycemia Protocol Stop: 10/08/22 15:42 Glucose (Glucose 10 Tab/Tube) 4 - 8 tab PO UD PRN; Protocol PRN Reason: Hypoglycemia Treatment Stop: 10/08/22 15:42 Glucose (Glucose 40% Gel 15 Gm Tube) 15 - 30 gm PO UD PRN; Protocol PRN Reason: Hypoglycemia Protocol Stop: 10/08/22 15:42 Ceftriaxone Sodium 2,000 mg/ (Dextrose) 70 mls @ 100 mls/hr IV Q24H [facility]; Protocol Stop: 09/11/22 12:59 Doxycycline Hyclate 100 mg/ (Dextrose) 110 mls @ 50 mls/hr IV Q12H [facility] Stop: 09/10/22 16:59 Last Infusion: 09/09/22 06:35 Dose: Infused Sodium Chloride (Nss 1000ml) 1,000 mls @ 80 mls/hr IV .[id number] [facility] Stop: 10/08/22 17:59 Last Admin: 09/09/22 06:26 Dose: 80 mls/hr Insulin Aspart (Insulin Aspart Per Unit) 0 units SC ACHS [facility] Stop: 10/08/22 16:29 Last Admin: 09/09/22 08:06 Dose: 2 units Insulin Glargine (Lantus Per Unit Charge) 25 units SQ DAILY [facility] Stop: 10/09/22 08:59 Last Admin: 09/09/22 08:06 Dose: 25 units Isosorbide Mononitrate (Isosorbide Clinch Extended Rel 60 Mg Tabcr) 60 mg PO DAILY [facility] Stop: 10/09/22 08:59 Last Admin: 09/09/22 07:59 Dose: 60 mg Lisinopril (Lisinopril 5 Mg Tab) 5 mg PO QAM [facility] Stop: 10/09/22 08:59 Last Admin: 09/09/22 07:59 Dose: 5 mg Metoprolol Tartrate (Metoprolol Tartrate 50 Mg Tab) 50 mg PO BID [facility] Stop: 10/08/22 20:59 Last Admin: 09/09/22 08:00 Dose: 50 mg Miscellaneous (Carbohydrates For Hypoglycemia ) 15 - 30 gm PO UD PRN PRN Reason: Hypoglycemia Protocol Stop: 10/08/22 15:42 Last Admin: 09/08/22 16:19 Dose: 15 gm Miscellaneous Information (Pharmacy Glycemic Mgmt Consult) 1 each N/A UD PRN; Protocol PRN Reason: Consult Stop: 10/08/22 16:30 Ondansetron HCl (Ondansetron Inj 2 Mg/Ml 2 Ml Vial) 4 mg IV Q6H PRN PRN Reason: Nausea And Vomiting Stop: 10/08/22 17:34 Last Admin: 09/09/22 07:54 Dose: 4 mg Polyethylene Glycol (Polyethylene (Miralax) 17 Gm Pack) 17 gm PO DAILY PRN PRN Reason: Constipation Stop: 10/08/22 15:42 Rivaroxaban (Rivaroxaban 20 Mg Tab) 20 mg PO QDD [facility] Stop: 10/09/22 16:29
[2022-09-09] MEDS ORDERED: LANTUS PER UNIT CHARGE SQ SCH (09:00)
[2022-09-09] MEDS ORDERED: ATORVASTATIN 40 MG TAB PO SCH (09:00)
[2022-09-09] MEDS: oxyCODONE HCL IR 5 MG TAB (IMMEDIATE RELEASE) PO PRN ×3 (10:12→23:02)
--- NOTE | 2022-09-09 11:20 | Neurology Consultation ---
Date of Consultation September 09, 2022 Assessment & Plan (1) Arthralgia: Plan NEUROLOGY CONSULTATION Assessment & Plan: Impression: pt with polyarthralgia with joint swelling. overall appears to be rheumatologic flare up. Not related to his prior reported history of multiple sclerosis. Recommendations: -continue tx with rheumatology as planned. planning to do steroid. not much to offer from neurology. will sign off. Dr. Nacho Aleman MD [facility] Neurology Chief Complaint: joint pain and swelling History of Present Illness: pt this morning with continue joint point throughout and swelling. difficult to move due to pain issues. CT head negative. chart reviewed. Admission/Initial HPI documentation: Patient is 71-year-old male with PMH CAD, NSTEMI s/p CABG 08/19/2021, chronic stable angina, HTN, HLD, DM II, CKD III, MS, gout, multinodular goiter, polymyalgia rheumatica, h/o DVT on chronic anticoagulation with Xarelto presented to ER with c/o body aches and episode of CP today. Patient states this morning woke up with generalized weakness. Also woke up with diffuse arthralgias. Reports neck pain, bilateral shoulder, bilateral elbow, wrist, hand finger, hip, knee, ankle, foot pain today. Reports limited ROM of bilateral fingers secondary to pain and edema. Has chronic paraesthesias BLE thought secondary to diabetic neuropathy. Also reports generalized DORANTES today. States last night when watching TV and thought had some blurry vision. Has not noticed any visual disturbance today. Denies diplopia, vision loss. Approximately 7:30 AM had onset of sharp stabbing mid chest pain that was non-radiating and associated with lightheadedness and nausea. Denies vomiting. Patient reports a generalized shaking today. He is unaware of any fever. Denies any known recent tick bite, recent travel. Denies diaphoresis, V/ D/C, syncope, SOB, orthopnea, palpitations, cough, sore throat, choking, otalgia, rhinorrhea, abdominal pain, rashes, urinary symptoms. Recent hospital admission 07/25/2022- 07/30/2022 for DKA, influenza A, type II NSTEMI in setting of demand ischemia. During admission was treated with IV heparin transitioned to his home Xarelto and was discharged on isosorbide, increase lisinopril dose. Patient reports has had slow recovery since recent hospitalization and difficulty regaining his stamina. Reports earlier this week he felt like he was getting closer to his baseline and was able to walk to his mailbox approximately 100 feet. Reports had continued cough for couple of weeks past discharge but that has finally resolved. Past Medical History: See chart Meds: See chart I personally reviewed all of the medications Social & Family History: See chart Review of Systems: Per initial HPI on admission. Physical Exam: HEENT: Normocephalic Neuro: Mental status:A & O x 3.No dysarthria or aphasia.No neglect. Fluent speech. No apraxia Cranial Nerves:II-XII intact Motor:Normal bulk and tone,4+/5 strength x 4 extremities (mostly feeling weak due to pain). noted for joint swelling t/o Coordination:Intact Reflexes: down going toes cristy Sensation: Intact x 4 extremities to touch Chart reviewed I have spent more than 50% educating patient about potential diagnosis and neurological evaluation and coordinating care with patient's treatment team. Total time spent (including chart review and coordination of care): 80 min (this includes chart review). History of Present Illness Attending Physician: Gabe Encarnacion MD Allergies Allergy/AdvReac Type Severity Reaction Status Date / Time morphine AdvReac Severe Vomiting Verified 07/25/22 00:16 rosuvastatin [From Crestor] AdvReac Intermediate Cramping Verified 07/25/22 00:16 of the Muscles Home Medications Medication Instructions Recorded Confirmed Type allopurinol 100 mg tablet 200 mg PO DAILY 07/25/22 09/08/22 History aspirin 81 mg chewable tablet 81 mg PO DAILY 07/25/22 09/08/22 History atorvastatin 80 mg tablet 80 mg PO QAM 07/25/22 09/08/22 History empagliflozin 25 mg tablet 25 mg PO DAILY 07/25/22 09/08/22 History (Jardiance) ezetimibe 10 mg tablet 10 mg PO QAM 07/25/22 09/08/22 History insulin glargine 100 unit/mL (3 32 unit subcut BID 07/25/22 09/08/22 History mL) subcutaneous pen (Basaglar KwikPen U-100 Insulin) metformin 500 mg tablet,extended 1,000 mg PO QAM 07/25/22 09/08/22 History release 24 hr metoprolol tartrate 50 mg tablet 50 mg PO BID 07/25/22 09/08/22 History rivaroxaban 20 mg tablet (Xarelto) 20 mg PO DAILY 07/25/22 09/08/22 History lisinopril 5 mg tablet 5 mg PO QAM 30 days #30 tabs 07/30/22 09/08/22 Rx dulaglutide 0.75 mg/0.5 mL 0.75 mg subcut WK 09/08/22 09/08/22 History subcutaneous pen injector (Trulicity) isosorbide mononitrate 60 mg 60 mg PO DAILY 09/08/22 09/08/22 History tablet,extended release 24 hr Patient History Medical History Anxiety Asthma in remission BPH (benign prostatic hyperplasia) BPH loc w urin obs/LUTS Broken rib r/t old sports injury, shows up on CXRs as abnormal, but was very remote (in college) and does not cause any pain. Cataract Chronic kidney disease Stage III. follows w/ dr. 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 Galloway, has not had symptoms beyond muscle twitches since the early Osteoarthritis PMR (polymyalgia rheumatica) Polyarthritis Precordial chest pain Prostate cancer screening SOB (shortness of breath) Supratherapeutic INR Thyroid nodule Surgical History H/O arthroscopic knee surgery History of appendectomy History of arthroscopy of left knee History of cardiac cath 15 years ago - CP led to cath - Tj - no stents/angioplasty, ruled indigestion - does not follow w/ cardio History of carpal tunnel release BL History of carpal tunnel surgery History of coronary artery bypass graft CABG X 5 ON 08/19/2021 ([id number], Ao-ramus-OM, Ao-PDA W/ rev SVG) History of cystoscopy History of knee joint replacement x 2 rt knee History of repair of rotator cuff BL History of surgery LLE - hardware present History of tooth extraction History of total right knee replacement S/P appendectomy S/P rotator cuff repair Status post biopsy of thyroid gland benign Family History Daughter History of anesthesia reaction PONV Grandfather (Paternal) Family history of diabetes mellitus Mother Family history of diabetes mellitus Father Family history of diabetes mellitus Social History Smoking Status: Never smoker Tobacco Type: Smokeless Tobacco (Dip or Chew) Second Hand Exposure: No; Hx Alcohol Use: No Hx Substance Use: No Preferred Language: Latvian Communication Ability: Effective Radio Program Checker Required: No Beliefs That Will Affect Care: None marital status: Current Living Situation: Spouse current occupational status: retired current occupation: Retired Feels Safe at Home: Yes Assistive Devices: Cane, Glasses, Walker and Wheelchair Results & Data ([facility]) Vital Signs (Past 12 Hours) Vital Signs Temp Pulse Pulse Resp BP Pulse Ox O2 Del Method 09/09/22 07:15 36.9 C 70 16 103/65 93 Room Air 09/09/22 04:00 37.1 C 69 18 105/63 92 Room Air 09/09/22 00:48 87
--- NOTE | 2022-09-09 11:37 | Electrocardiogram Report ---
Test Reason : Blood Pressure : / mmHG Vent. Rate : 073 BPM Atrial Rate : 073 BPM P-R Int : 280 ms QRS Dur : 098 ms QT Int : 382 ms P-R-T Axes : 073 038 094 degrees QTc Int : 420 ms Sinus rhythm with 1st degree A-V block Subtle ST elevation in the inferolateral leads with reciprocal changes in 1/AVL possibly c/w ACS When compared with ECG of 08-SEP-2022 10:49, The ST changes are new [place] text sent to covering network strategist Confirmed by Eran Jerry ([id number]) on 09/09/2022 11:36:43 AM Referred By: REFERRED SELF Confirmed By:Eran Jerry
--- NOTE | 2022-09-09 12:53 | Cardiology Progress Note ---
Date of Service September 09, 2022 Assessment & Plan (1) Probable sepsis: (2) Rigors: (3) Arthralgia: (4) CAD (coronary artery disease): Plan Patient is a 71-year-old male with complex history as described who presents now with diffuse arthralgias myalgias and weakness times several days duration today culminating in marked weakness rigors and chills Pattern consistent with probable acute sepsis Patient had blood cultures drawn in ER and treated empirically with antibiotic therapy. Patient still febrile and having rigors Review of initial cardiac studies revealed no acute cardiac concerns other than elevated blood pressure Recommendations: Continue outpatient cardiac medications with demand ischemia possible. Would hold atorvastatin given acute complaint myalgias and arthralgias. Add CPK to laboratory test Treat presumed sepsis Follow renal function closely 09/09/22: Patient with transient chest discomfort. EKG shows GA interval depression with subtle ST segment elevations in the inferior leads: Suspicious for pericarditis. Limited echocardiogram does not show any significant pericardial thickening or pleural effusions No further chest pain so we will hold off on treatment for pericarditis at this time Should he have any recurrent chest discomfort would recommend initiation of colchicine 0.6 mg p.o. twice daily along with ibuprofen 600 mg p.o. every 8 hours Admission and Anticipated Discharge Date Admission Date: September 08, 2022 Subjective Patient seen and examined. Chart reviewed. Telemetry reviewed. States that joint discomfort has not significantly improved and still with profound joint swelling. Review of Systems Review of Systems: All systems reviewed & are unremarkable except as noted in HPI & below Physical Exam Physical Exam: General: Awake, alert and oriented x 3. No acute distress. HEENT: Normocephalic, atraumatic. Pupils equal, round and reactive to light and accommodation. Extraocular muscles are intact. Anicteric sclera. Moist mucous membranes. Neck: No JVD. No bruit. Cardiovascular: Regular. Positive S-4. Normal S-1 and S-2. No S-3. No murmurs or rubs. Pulmonary: Clear to auscultation B/L. No rales, rhonchi or wheezing Abdomen: Bowel sounds x 4, soft. No rebound, guarding or tenderness. No organomegaly. Extremities: No clubbing, cyanosis or edema. +2 pedal pulses bilaterally. Skin: Warm and dry. Results & Data ([facility]) Vital Signs (Past 12 Hours) Vital Signs Temp Pulse Pulse Resp BP Pulse Ox O2 Del Method 09/09/22 11:27 36.3 C L 66 20 106/67 95 Room Air 09/09/22 08:00 68 09/09/22 07:15 36.9 C 70 16 103/65 93 Room Air 09/09/22 04:00 37.1 C 69 18 105/63 92 Room Air
--- NOTE | 2022-09-09 13:38 | Pharmacy Report ---
Pharmacy Glycemic Short Note 2 - Date of Service September 09, 2022 - Glycemic Short BSG Results (Last 24 hours): 09/08/22 09/08/22 09/08/22 15:51 15:52 15:52 Glucose POC Glucose 49 L* 56 L* 52 L* 09/08/22 09/08/22 09/08/22 16:08 16:09 16:09 Glucose POC Glucose 65 L* 64 L* 63 L* 09/08/22 09/08/22 09/09/22 16:31 20:38 00:10 Glucose POC Glucose 70 79 103 H 09/09/22 09/09/22 09/09/22 04:03 06:39 07:12 Glucose 150 H POC Glucose 92 127 H 09/09/22 11:36 Glucose POC Glucose 118 H OUTPATIENT ANTIDIABETIC REGIMEN: * Jardiance 25 mg PO daily * metformin ER 500 mg PO BID * Basaglar 32 units BID * HbA1C = 10.7% (07/25/22) ASSESSMENT: * Mr Hurst is a 71 y/o M with a PMH of T2DM who presents with arthralgias. * Initially, on admission, patient was hypoglycemic - 49/70. 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 * Today fasting is 127 mg/dL. Lunch is 118 mg/dL. * During the previous admission, patient required Lantus 22-25 units BID. Will start with Lantus 25 units daily for now. * Novolog weight-based stress of 2. PLAN FOR INPATIENT GLYCEMIC CONTROL: * Hold outpatient oral diabetes medications * Basal insulin * Lantus 25 units SQ daily * Bolus insulin * NovoLog per scale ACHS or Q6hrs while NPO * Goal Range: Low 110 mg/dL - High 140 mg/dL * Correction Factor: 35 mg/dL/unit * Nutritional / Prandial insulin per carb ratio of 1 unit per 11 grams CHO consumed
[2022-09-09 13:45] LABS: Adenovirus PCR Not Detected (NotDetected); Bordetella parapertussis PCR Not Detected (NotDetected); Bordetella pertussis PCR Not Detected (NotDetected); Chlamydia pneumoniae PCR Not Detected (NotDetected); Coronavirus 229E PCR Not Detected (NotDetected); Coronavirus CoV-2 (COVID19)PCR Not Detected (NotDetected); Coronavirus HKU1 PCR Not Detected (NotDetected); Coronavirus NL63 PCR Not Detected (NotDetected); Coronavirus OC43PCR Not Detected (NotDetected); Human Metapneumovirus PCR Not Detected (NotDetected); Influenza B PCR Not Detected (NotDetected); Mycoplasma pneumoniae PCR Not Detected (NotDetected); Parainfluenza Virus 1 PCR Not Detected (NotDetected); Parainfluenza Virus 2 PCR Not Detected (NotDetected); Parainfluenza Virus 3 PCR Not Detected (NotDetected); Parainfluenza Virus 4 PCR Not Detected (NotDetected); Respiratory Syncytial VirusPCR Not Detected (NotDetected); Rhinovirus/Enterovirus PCR Not Detected (NotDetected)
[2022-09-09] MEDS: cefTRIAXone SODIUM 2,000 MG in DEXTROSE 5% 50 ML IV SCH (13:59)
[2022-09-09 14:11] LABS: Influenza A PCR Equivocal (NotDetected)
[2022-09-09] MEDS: RIVAROXABAN 20 MG TAB PO SCH (17:02)
[2022-09-10] MEDS: oxyCODONE HCL IR 5 MG TAB (IMMEDIATE RELEASE) PO PRN ×3 (04:53→21:46)
[2022-09-10] MEDS: DOXYCYCLINE HYCLATE 100 MG in DEXTROSE 5% 100 ML IV SCH (04:53)
[2022-09-10 08:16] LABS: Hematocrit (blood only) 39.4 % (42.0-52.0); Hemoglobin 13.2 g/dl (14.0-18.0); Mean Corpuscular Hemoglobin 31.1 pg (25.0-34.0); Mean Corpuscular Hgb Conc 33.5 g/dL (32.0-36.0); Mean Corpuscular Volume 92.7 fL (80.0-100.0); Mean Platelet Volume 10.5 fL (9.4-12.4); Platelet Count 182 K/uL (130-400); RDW Coefficient of Variation 14.2 % (11.5-14.5); RDW Standard Deviation 48.5 fL (36.4-46.3); Red Blood Count 4.25 M/uL (4.70-6.10); White Blood Count 10.05 K/ul (4.8-10.8)
[2022-09-10 08:24] LABS: BUN Creatinine Ratio 16.7 (10-20); Calcium 8.8 mg/dl (8.5-10.1); Creatinine Clr Calc Pharmacy 44.2 ml/min; Est GFR (African American) 50.7 ml/min; Est GFR (Non-African American) 43.7 ml/min; Magnesium 1.7 mg/dl (1.7-2.4); Phosphorus 2.6 mg/dl (2.5-4.9); Potassium 4.4 mmol/L (3.5-5.1)
[2022-09-10] MEDS ORDERED: LANTUS PER UNIT CHARGE SQ SCH (09:00)
[2022-09-10] MEDS: ISOSORBIDE MONO EXTENDED REL 60 MG TABCR PO SCH (09:06)
[2022-09-10] MEDS: ASPIRIN 81 MG CHEW PO SCH (09:06)
[2022-09-10] MEDS: allopurinoL 100 MG TAB PO SCH (09:06)
[2022-09-10] MEDS: EZETIMIBE 10 MG TABLET PO SCH (09:06)
[2022-09-10] MEDS: lisinopril 5 MG TAB PO SCH (09:06)
[2022-09-10] MEDS: METOPROLOL TARTRATE 50 MG TAB PO SCH ×2 (09:07→21:46)
[2022-09-10] MEDS: INSULIN ASPART PER UNIT SC SCH ×4 (09:09→21:59)
[2022-09-10] MEDS: ONDANSETRON INJ 2 MG/ML 2 ML VIAL IV PRN ×2 (11:28→21:48)
--- NOTE | 2022-09-10 12:20 | Pharmacy Report ---
Pharmacy Glycemic Short Note 2 - Date of Service September 10, 2022 - Glycemic Short BSG Results (Last 24 hours): 09/09/22 09/09/22 09/10/22 16:32 20:09 07:49 Glucose 107 H POC Glucose 129 H 129 H 09/10/22 09/10/22 07:49 11:31 Glucose POC Glucose 104 H 103 H OUTPATIENT ANTIDIABETIC REGIMEN: * Jardiance 25 mg PO daily * metformin ER 500 mg PO BID * Basaglar 32 units BID * HbA1C = 10.7% (07/25/22) ASSESSMENT: * Patient's BSGs yesterday were [id number] mg/dL. Patient received 34 units of insulin (25 units of basal and 9 units of bolus). * Fasting today is trending down at 104 mg/dL. Decrease basal by 30% to 17 units. Further reduction of 30% available for tomorrow if BSGs continue to trend downwards. * Continue Novolog. BACKGROUND * Mr Hurst is a 71 y/o M with a PMH of T2DM who presents with arthralgias. * Initially, on admission, patient was hypoglycemic - 49/70. 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 * Today fasting is 127 mg/dL. Lunch is 118 mg/dL. * During the previous admission, patient required Lantus 22-25 units BID. Will start with Lantus 25 units daily for now. * Novolog weight-based stress of 2. PLAN FOR INPATIENT GLYCEMIC CONTROL: * Hold outpatient oral diabetes medications * Basal insulin * Lantus 17 units SQ daily (12 units if BSG < 100 mg/dL) * Bolus insulin * NovoLog per scale ACHS or Q6hrs while NPO * Goal Range: Low 110 mg/dL - High 140 mg/dL * Correction Factor: 35 mg/dL/unit * Nutritional / Prandial insulin per carb ratio of 1 unit per 11 grams CHO consumed
[2022-09-10] MEDS: cefTRIAXone SODIUM 2,000 MG in DEXTROSE 5% 50 ML IV SCH (13:35)
[2022-09-10] MEDS ORDERED: MAGNESIUM SULFATE / D5W 1 GM/100 ML BAG IV ONE (14:47)
--- NOTE | 2022-09-10 15:31 | Cardiology Progress Note ---
Date of Service September 10, 2022 Assessment & Plan (1) Probable sepsis: (2) Rigors: (3) Arthralgia: (4) CAD (coronary artery disease): Plan Patient is a 71-year-old male with complex history as described who presents now with diffuse arthralgias myalgias and weakness times several days duration today culminating in marked weakness rigors and chills Pattern consistent with probable acute sepsis Patient had blood cultures drawn in ER and treated empirically with antibiotic therapy. Patient still febrile and having rigors Review of initial cardiac studies revealed no acute cardiac concerns other than elevated blood pressure Recommendations: Continue outpatient cardiac medications with demand ischemia possible. Would hold atorvastatin given acute complaint myalgias and arthralgias. Add CPK to laboratory test Treat presumed sepsis Follow renal function closely 09/09/22: Patient with transient chest discomfort. EKG shows MA interval depression with subtle ST segment elevations in the inferior leads: Suspicious for pericarditis. Limited echocardiogram does not show any significant pericardial thickening or pleural effusions No further chest pain so we will hold off on treatment for pericarditis at this time Should he have any recurrent chest discomfort would recommend initiation of colchicine 0.6 mg p.o. twice daily along with ibuprofen 600 mg p.o. every 8 hours 09/10/2022 No further episodes of chest discomfort No need to treat for possible pericarditis at this time We will defer further work-up and management to the primary team Admission and Anticipated Discharge Date Admission Date: September 08, 2022 Subjective Patient seen and examined with family at bedside. Chart reviewed. Telemetry reviewed. States that joint discomfort has not significantly improved and still with profound joint swelling. Review of Systems Review of Systems: All systems reviewed & are unremarkable except as noted in HPI & below Physical Exam Physical Exam: General: Awake, alert and oriented x 3. No acute distress. HEENT: Normocephalic, atraumatic. Pupils equal, round and reactive to light and accommodation. Extraocular muscles are intact. Anicteric sclera. Moist mucous membranes. Neck: No JVD. No bruit. Cardiovascular: Regular. Positive S-4. Normal S-1 and S-2. No S-3. No murmurs or rubs. Pulmonary: Clear to auscultation B/L. No rales, rhonchi or wheezing Abdomen: Bowel sounds x 4, soft. No rebound, guarding or tenderness. No organomegaly. Extremities: No clubbing, cyanosis or edema. +2 pedal pulses bilaterally. Skin: Warm and dry. Results & Data ([facility]) Vital Signs (Past 12 Hours) Vital Signs Temp Pulse Resp BP Pulse Ox O2 Del Method 09/10/22 11:49 36.8 C 70 20 117/70 93 Room Air 09/10/22 07:40 37.5 C 78 19 126/71 91 Room Air 09/10/22 04:00 37.1 C 76 18 109/69 93 Room Air
--- NOTE | 2022-09-10 17:32 | Hospitalist Progress Note ---
Date of Service September 10, 2022 Assessment & Plan (1) Arthralgia: (2) Generalized weakness: Plan: Patient is 71-year-old male with PMH CAD, NSTEMI s/p CABG 08/19/2021, chronic stable angina, HTN, HLD, DM II, CKD III, MS, gout, multinodular goiter, polymyalgia rheumatica, h/o DVT on chronic anticoagulation with Xarelto presented to ER with c/o onset diffuse bilateral arthralgias. Pt then also spiked fever and had rigors immediately after admission. DDX: sepsis/bacteremia, PMR, MS flare, GCA Negative Lyme Anaplasma pending ESR: 22, CRP: < 0.5 on admission - will repeat in AM Infectious work-up as below CT head: No acute findings Fall precautions Neurology consult Spoke with stick inserter, Dr Lock on phone on admission. Since inflammatory markers are relatively unremarkable recommends if blood cultures negative and no source of infection to start 10-20mg prednisone daily. this was however before pt spiked fever. (3) Rigors: Plan: DDX: sepsis/bacteremia Rigors noted in ER. Afebrile in ER. Vital stable. Pt became febrile shortly after admission. Denies cough, vomiting, diarrhea, urinary symptoms WBC: 14. UA unremarkable. CXR: No infiltrate. Procalcitonin WNL. Negative SARS-CoV-2 PCR, negative influenza and RSV PCR Lactate: 2.3-->1.6 Blood cultures pending In ER given Rocephin, 1L NSS Continue Rocephin, added doxycycline. If would have continued fevers may need to consider more broad spectrum antibiotics anaplasma pending Lyme negative repeated respiratory biofire -full panel (patient history of influenza during last admission recently, influenza negative in the ED, influenza equivocal results on repeat BioFire) Currently afebrile after starting Abx Will further discuss w/ ID, ID consult placed (4) Chest pain: (5) CAD (coronary artery disease): Plan: CAD, NSTEMI s/p CABG 08/19/2021, chronic stable angina Recent hospital admission 07/25/2022- 07/30/2022 for DKA, influenza A, type II NSTEMI in setting of demand ischemia. 07/25/2022 echo: Moderate concentric LVH, mild hypokinesis inferior and septal apex, grade 1 diastolic dysfunction 07/28/2022 echo: EF: 65-70%, moderate concentric LVH, no regional wall motion abnormalities Episode midsternal nonradiating chest pain with associated nausea, lightheadedness today around 7:30 AM Denies current chest pain or shortness of breath Initial high-sensitivity troponin: 8. EKG without acute ST elevation Trended troponin Continue aspirin, atorvastatin, isosorbide, metoprolol tartrate Cardiology consulted, and concern for possible pericarditis, limited echo ordered No recurrent chest pain, per cardiology no need to treat for possible pericarditis (6) DM type 2 (diabetes mellitus, type 2): Plan: A1c: 10.7 % on 07/25/2022 Hold home glycemic agents Basal bolus insulin per protocol (7) CKD (chronic kidney disease), stage III: Plan: Cr: 1.59. Baseline 1.4-1.6 per outpatient chart review Monitor renal functions, avoid nephrotoxic agents when possible (8) Hypertension: Plan: Stable Continue lisinopril, metoprolol tartrate (9) Deep vein thrombosis: Plan: History of DVT. Chronically anticoagulated on Xarelto Continue Xarelto (10) PMR (polymyalgia rheumatica): Plan: Follows with rheumatology, Dr. Lock 09/10 Pt Continues to have joint pain, hands are mildly edematous, left knee has mild edema, difficulty to move the joint. Tender and painful when moving. No erythema over any joints noted however. Family at the bedside, and reports that patient has been seen by orthopedics, also diagnosis of gout/pseudogout. Patient w/history of right knee replacement, and also shoulder surgery. Left knee currently with mild edema and difficulty to move, will obtain x-ray of left knee now. Will discuss with UOC. Official consult placed. Uric acid obtained on admission, level 5.9. We will repeat uric acid. Patient is currently on allopurinol. ESR CRP unremarkable on admission, will repeat in the morning. (11) Multiple sclerosis: Plan: Follows with neurology, Dr. Galloway Outpatient neurology note reviewed: Reported vague history of MS based on symptoms of fatigue, numbness in feet and abnormal MRI scans in the past. Patient has had clinically inactive symptoms throughout and had never received disease modifying therapy Neurology consulted given "vision changes" reported by the pt prior to admission. Symptoms resolved, and per neurology not likely MS flare. (12) Gout: Plan: Continue allopurinol DVT Prophylaxis On Xarelto DNR/DNI as per discussion with pt Follows with Dr Chen for routine care Admission and Anticipated Discharge Date Admission Date: September 08, 2022 Subjective Pt is 71-year-old male with PMH CAD, NSTEMI s/p CABG 08/19/2021, chronic stable angina, HTN, HLD, DM II, CKD III, MS, gout, multinodular goiter, polymyalgia rheumatica, h/o DVT on chronic anticoagulation with Xarelto presented to ER with c/o onset diffuse bilateral arthralgias. Febrile w/ rigors shortly after admission. Infectious source currently not identified. Chest x-ray negative, UA negative, lyme negative. blood cultures obtained and pending. Patient was started on empiric antibiotic on admission Seen by cardiology, limited echo ordered to evaluate for possible pericarditis. Chest pain resolved. Patient w/ some edema in his hands, left lower extremity. Left knee with mild edema but no erythema noted. Painful to move left knee. Painful to close his hand as well d/t joint stiffness/ tenderness. Family at the bedside, and reports that patient has been seen by urology several times. He has his right knee replaced, also hx of shoulder surgery. Family reports history of gout/pseudogout. Patient is currently on allopurinol, and uric acid on admission was 5.9. CRP ESR unremarkable on admission, will repeat in the morning. Plan to x-ray left knee, and discuss further with STEVENSON. Patient afebrile now. However after lunch patient became nauseous. He is now sitting up in bed, in no acute distress. No chest pain shortness of breath. Mostly concerned about joint pain and weakness. Review of Systems Review of Systems: All systems reviewed & are unremarkable except as noted in Subjective Physical Exam Physical Exam: General: no distress, WDWN Head: normocephalic, atraumatic Eyes: PERRL, EOM's intact, conjunctiva non-injected, anicteric ENT: normal inspection external ears, nose, mucous membranes moist Neck: supple Lungs: clear, no respiratory distress, no wheezing/rhonchi/rales CV: RRR, no murmur, no JVD, no pretibial edema Abd: normal BS, soft, non-tender Ext: no cyanosis, no calf tenderness, +limited flexion and extension of bilateral fingers secondary to tenderness/stiffness. No erythema noted to joints but with +diffuse tenderness to palpation, bilateral shoulders, bilateral elbows, bilateral wrists, fingers, bilateral hips, bilateral knees and ankles and feet. + mild edema of both hands and Left knee (no erythema over any joint noted) Neuro: A&O x 3, no focal deficits noted, normal affect Skin: warm, dry Results & Data Results & Data ([facility]) Vital Signs (Past 12 Hours) Vital Signs Temp Pulse Resp BP Pulse Ox O2 Del Method 09/10/22 17:18 Room Air 09/10/22 15:32 37 C 65 20 116/73 92 Room Air 09/10/22 11:49 36.8 C 70 20 117/70 93 Room Air 09/10/22 07:40 37.5 C 78 19 126/71 91 Room Air
[2022-09-10] MEDS: RIVAROXABAN 20 MG TAB PO SCH (17:59)
--- NOTE | 2022-09-10 18:29 | XRay Report ---
LEFT KNEE 2 VIEWS CLINICAL HISTORY: Left knee pain and swelling. FINDINGS: AP and crosstable lateral views of the left knee are obtained. No prior studies are availab le for comparison at the time of dictation. The skeletal structures are osteopenic. No fracture is se en. There is mild tricompartmental degenerative joint space narrowing. There are marginal osteophytes , patellar enthesophytes, and degenerative beaking of the tibial spine. A joint effusion is noted. Mi ld soft tissue swelling is seen around the knee. There is atherosclerotic calcification of the poplit eal artery. Surgical clips are present in the posteromedial upper calf. IMPRESSION: Soft tissue swelling and joint effusion with no acute bony abnormality identified. Electronically signed by: Jayme Ortiz M.D. 09/10/2022 6:27 PM
[2022-09-11 07:41] LABS: Hematocrit (blood only) 38.8 % (42.0-52.0); Hemoglobin 13.3 g/dl (14.0-18.0); Mean Corpuscular Hemoglobin 31.5 pg (25.0-34.0); Mean Corpuscular Hgb Conc 34.3 g/dL (32.0-36.0); Mean Corpuscular Volume 91.9 fL (80.0-100.0); Mean Platelet Volume 10.2 fL (9.4-12.4); Platelet Count 196 K/uL (130-400); RDW Coefficient of Variation 14.1 % (11.5-14.5); RDW Standard Deviation 46.9 fL (36.4-46.3); Red Blood Count 4.22 M/uL (4.70-6.10); White Blood Count 8.11 K/ul (4.8-10.8)
[2022-09-11] MEDS ORDERED: ETHYL CHLORIDE AER SPR 100 ML CAN EXT ONE (07:41)
[2022-09-11 08:00] LABS: BUN Creatinine Ratio 18.9 (10-20); C Reactive Protein 11.82 mg/dl (0-0.5); Calcium 9.4 mg/dl (8.5-10.1); Creatinine Clr Calc Pharmacy 43.4 ml/min; Est GFR (African American) 49.5 ml/min; Est GFR (Non-African American) 42.7 ml/min; Magnesium 1.8 mg/dl (1.7-2.4); Phosphorus 3.1 mg/dl (2.5-4.9); Potassium 4.2 mmol/L (3.5-5.1)
[2022-09-11] MEDS ORDERED: MAGNESIUM SULFATE / D5W 1 GM/100 ML BAG IV ONE (08:14)
--- NOTE | 2022-09-11 08:17 | Hospitalist Progress Note ---
Date of Service September 11, 2022 Assessment & Plan (1) Arthralgia: (2) Generalized weakness: Plan: Patient is 71-year-old male with PMH CAD, NSTEMI s/p CABG 08/19/2021, chronic stable angina, HTN, HLD, DM II, CKD III, MS, gout, multinodular goiter, polymyalgia rheumatica, h/o DVT on chronic anticoagulation with Xarelto presented to ER with c/o onset diffuse bilateral arthralgias. Pt then also spiked fever and had rigors immediately after admission. DDX: sepsis/bacteremia, PMR, MS flare, GCA Negative Lyme Anaplasma pending ESR: 22 -> 62, CRP: < 0.5 ->11.8 on admission values unremarkable however now on repeat elevated Infectious work-up as below CT head: No acute findings Fall precautions Neurology consult Spoke with blueprint maker, Dr Lock on phone on admission. Since inflammatory markers are relatively unremarkable recommends if blood cultures negative and no source of infection to start 10-20mg prednisone daily. this was however before pt spiked fever. (3) Rigors: Plan: DDX: sepsis/bacteremia Rigors noted in ER. Afebrile in ER. Vital stable. Pt became febrile shortly after admission. Denies cough, vomiting, diarrhea, urinary symptoms WBC: 14. UA unremarkable. CXR: No infiltrate. Procalcitonin WNL. Negative SARS-CoV-2 PCR, negative influenza and RSV PCR Lactate: 2.3-->1.6 Blood cultures pending In ER given Rocephin, 1L NSS Continue Rocephin, added doxycycline. If would have continued fevers may need to consider more broad spectrum antibiotics anaplasma pending Lyme negative repeated respiratory biofire -full panel (patient history of influenza during last admission recently, influenza negative in the ED, influenza equivocal results on repeat BioFire) Currently afebrile after starting Abx Will further discuss w/ ID, ID consult placed (4) Chest pain: (5) CAD (coronary artery disease): Plan: CAD, NSTEMI s/p CABG 08/19/2021, chronic stable angina Recent hospital admission 07/25/2022- 07/30/2022 for DKA, influenza A, type II NSTEMI in setting of demand ischemia. 07/25/2022 echo: Moderate concentric LVH, mild hypokinesis inferior and septal apex, grade 1 diastolic dysfunction 07/28/2022 echo: EF: 65-70%, moderate concentric LVH, no regional wall motion abnormalities Episode midsternal nonradiating chest pain with associated nausea, lightheadedness today around 7:30 AM Denies current chest pain or shortness of breath Initial high-sensitivity troponin: 8. EKG without acute ST elevation Trended troponin Continue aspirin, atorvastatin, isosorbide, metoprolol tartrate Cardiology consulted, and concern for possible pericarditis, limited echo ordered No recurrent chest pain, per cardiology no need to treat for possible pericarditis (6) DM type 2 (diabetes mellitus, type 2): Plan: A1c: 10.7 % on 07/25/2022 Hold home glycemic agents Basal bolus insulin per protocol (7) CKD (chronic kidney disease), stage III: Plan: Cr: 1.59. Baseline 1.4-1.6 per outpatient chart review Monitor renal functions, avoid nephrotoxic agents when possible (8) Hypertension: Plan: Stable Continue lisinopril, metoprolol tartrate (9) Deep vein thrombosis: Plan: History of DVT. Chronically anticoagulated on Xarelto Continue Xarelto (10) PMR (polymyalgia rheumatica): Plan: Follows with rheumatology, Dr. Lock 09/10 Pt Continues to have joint pain, hands are mildly edematous, left knee has mild edema, difficulty to move the joint. Tender and painful when moving. No radha thema over any joints noted however. Family at the bedside, and reports that patient has been seen by orthopedics, also diagnosis of gout/pseudogout. Patient w/history of right knee replacement, and also shoulder surgery. L knee X-ray obtained - Soft tissue swelling and joint effusion with no acute bony abnormality identified. Left knee currently with mild edema and difficulty to move, painful, x-ray of left knee obtained as above - shows joint effusion - Will discuss with UOC. Official consult placed. Uric acid obtained on admission, level 5.9. repeat uric acid - pending. Patient is currently on allopurinol. ESR CRP unremarkable on admission, however quite elevated now. (11) Multiple sclerosis: Plan: Follows with neurology, Dr. Galloway Outpatient neurology note reviewed: Reported vague history of MS based on symptoms of fatigue, numbness in feet and abnormal MRI scans in the past. Patient has had clinically inactive symptoms throughout and had never received disease modifying therapy Neurology consulted given "vision changes" reported by the pt prior to admission. Symptoms resolved, and per neurology not likely MS flare. (12) Gout: Plan: Continue allopurinol DVT Prophylaxis On Xarelto DNR/DNI as per discussion with pt Follows with Dr Chen for routine care Admission and Anticipated Discharge Date Admission Date: September 08, 2022 Subjective Pt is 71-year-old male with PMH CAD, NSTEMI s/p CABG 08/19/2021, chronic stable angina, HTN, HLD, DM II, CKD III, MS, gout, multinodular goiter, polymyalgia rheumatica, h/o DVT on chronic anticoagulation with Xarelto presented to ER with c/o onset diffuse bilateral arthralgias. Febrile w/ rigors shortly after admission. Infectious source currently not identified. Chest x-ray negative, UA negative, lyme negative. blood cultures obtained and pending. Patient was started on empiric antibiotic on admission Seen by cardiology, limited echo ordered to evaluate for possible pericarditis. Chest pain resolved. Patient w/ some edema in his hands, left lower extremity. Left knee with mild edema but no erythema noted. Painful to move left knee. Painful to close his hand as well d/t joint stiffness/ tenderness. CRP ESR unremarkable on admission, however now elevated. X-ray of left knee obtained - shows joint effusion, will discuss further with UOC. Patient afebrile now. Sitting in the chair in NAD, reports feeling overall ok/ better. Hands w/ less edema but L knee painful. No chest pain shortness of breath. Mostly concerned about joint pain and weakness. Review of Systems Review of Systems: All systems reviewed & are unremarkable except as noted in Subjective Physical Exam Physical Exam: General: no distress, WDWN Head: normocephalic, atraumatic Eyes: PERRL, EOM's intact, conjunctiva non-injected, anicteric ENT: normal inspection external ears, nose, mucous membranes moist Neck: supple Lungs: clear, no respiratory distress, no wheezing/rhonchi/rales CV: RRR, no murmur, no JVD, no pretibial edema Abd: normal BS, soft, non-tender Ext: no cyanosis, no calf tenderness, +limited flexion and extension of bilateral fingers secondary to tenderness/stiffness. No erythema noted to joints but with +diffuse tenderness to palpation, bilateral shoulders, bilateral elbows, bilateral wrists, fingers, bilateral hips, bilateral knees and ankles and feet. + mild edema of both hands and Left knee (no erythema over any joint noted) Neuro: A&O x 3, no focal deficits noted, normal affect Skin: warm, dry Results & Data Results & Data ([facility]) Vital Signs (Past 12 Hours) Vital Signs Temp Pulse Pulse Resp BP Pulse Ox O2 Del Method 09/11/22 07:52 37.1 C 71 20 136/75 94 Room Air 09/11/22 07:33 60 09/11/22 04:00 36.7 C 68 18 106/67 94 Room Air 09/11/22 01:54 Room Air 09/11/22 00:25 37.0 C 73 18 115/72 94 Room Air 09/10/22 22:02 69 Laboratory Results 09/11/22 09/11/22 09/11/22 Range/Units 07:37 07:14 07:14 WBC (4.8-10.8) K/ul RBC (4.70-6.10) M/uL Hgb (14.0-18.0) g/dl Hct (42.0-52.0) % MCV (80.0-100.0) fL MCH (25.0-34.0) pg MCHC (32.0-36.0) g/dL RDW Std Deviation (36.4-46.3) fL RDW Coeff of Leo (11.5-14.5) % Plt Count (130-400) K/uL MPV (9.4-12.4) fL ESR 62 H (0-20) mm/hr Sodium 137 (136-145) mmol/L Potassium 4.2 (3.5-5.1) mmol/L Chloride 105 (98-107) mmol/L Carbon Dioxide 25 (21-32) mmol/L Anion Gap 7 (3-11) BUN 30 H (6-23) mg/dl Creatinine 1.59 H (0.6-1.4) mg/dl Est Cr Clr Drug Dosing 43.4 ml/min Est GFR ( Amer) 49.5 ml/min Est GFR (Non-Af Amer) 42.7 ml/min BUN/Creatinine Ratio 18.9 (10-20) Glucose 108 H (70-99(Fasting)) mg/dl POC Glucose 105 H (70-99) mg/dl Calcium 9.4 (8.5-10.1) mg/dl Phosphorus 3.1 (2.5-4.9) mg/dl Magnesium 1.8 (1.7-2.4) mg/dl C-Reactive Protein 11.82 H (0-0.5) mg/dl 09/11/22 09/10/22 09/10/22 Range/Units 07:14 20:35 16:39 WBC 8.11 (4.8-10.8) K/ul RBC 4.22 L (4.70-6.10) M/uL Hgb 13.3 L (14.0-18.0) g/dl Hct 38.8 L (42.0-52.0) % MCV 91.9 (80.0-100.0) fL MCH 31.5 (25.0-34.0) pg MCHC 34.3 (32.0-36.0) g/dL RDW Std Deviation 46.9 H (36.4-46.3) fL RDW Coeff of Leo 14.1 (11.5-14.5) % Plt Count 196 (130-400) K/uL MPV 10.2 (9.4-12.4) fL ESR (0-20) mm/hr Sodium (136-145) mmol/L Potassium (3.5-5.1) mmol/L Chloride (98-107) mmol/L Carbon Dioxide (21-32) mmol/L Anion Gap (3-11) BUN (6-23) mg/dl Creatinine (0.6-1.4) mg/dl Est Cr Clr Drug Dosing ml/min Est GFR ( Amer) ml/min Est GFR (Non-Af Amer) ml/min BUN/Creatinine Ratio (10-20) Glucose (70-99(Fasting)) mg/dl POC Glucose 142 H 124 H (70-99) mg/dl Calcium (8.5-10.1) mg/dl Phosphorus (2.5-4.9) mg/dl Magnesium (1.7-2.4) mg/dl C-Reactive Protein (0-0.5) mg/dl 09/10/22 09/10/22 09/10/22 Range/Units 11:31 07:49 07:49 WBC 10.05 (4.8-10.8) K/ul RBC 4.25 L (4.70-6.10) M/uL Hgb 13.2 L (14.0-18.0) g/dl Hct 39.4 L (42.0-52.0) % MCV 92.7 (80.0-100.0) fL MCH 31.1 (25.0-34.0) pg MCHC 33.5 (32.0-36.0) g/dL RDW Std Deviation 48.5 H (36.4-46.3) fL RDW Coeff of Leo 14.2 (11.5-14.5) % Plt Count 182 (130-400) K/uL MPV 10.5 (9.4-12.4) fL ESR (0-20) mm/hr Sodium 136 (136-145) mmol/L Potassium 4.4 (3.5-5.1) mmol/L Chloride 106 (98-107) mmol/L Carbon Dioxide 22 (21-32) mmol/L Anion Gap 8 (3-11) BUN 26 H (6-23) mg/dl Creatinine 1.56 H (0.6-1.4) mg/dl Est Cr Clr Drug Dosing 44.2 ml/min Est GFR ( Amer) 50.7 ml/min Est GFR (Non-Af Amer) 43.7 ml/min BUN/Creatinine Ratio 16.7 (10-20) Glucose 107 H (70-99(Fasting)) mg/dl POC Glucose 103 H (70-99) mg/dl Calcium 8.8 (8.5-10.1) mg/dl Phosphorus 2.6 (2.5-4.9) mg/dl Magnesium 1.7 (1.7-2.4) mg/dl C-Reactive Protein (0-0.5) mg/dl Medications Administered Current Inpatient Medications Acetaminophen (Acetaminophen 325 Mg Tab) 650 mg PO Q4H PRN PRN Reason: Pain or Fever Stop: 10/08/22 15:42 Last Admin: 09/09/22 19:58 Dose: 650 mg Allopurinol (Allopurinol 100 Mg Tab) 200 mg PO DAILY JOYCE Stop: 10/09/22 08:59 Last Admin: 09/10/22 09:06 Dose: 200 mg Aspirin (Aspirin 81 Mg Chew) 81 mg PO DAILY [facility] Stop: 10/09/22 08:59 Last Admin: 09/10/22 09:06 Dose: 81 mg Dextrose (Dextrose 50% 50 Ml Syringe) 25 - 50 ml IV UD PRN; Protocol PRN Reason: Hypoglycemia Protocol Stop: 10/08/22 15:42 Ezetimibe (Ezetimibe 10 Mg Tablet) 10 mg PO QAM [facility] Stop: 10/09/22 08:59 Last Admin: 09/10/22 09:06 Dose: 10 mg Glucagon (Glucagon For Inj 1 Mg Vial) 1 mg SQ UD PRN; Protocol PRN Reason: Hypoglycemia Protocol Stop: 10/08/22 15:42 Glucose (Glucose 10 Tab/Tube) 4 - 8 tab PO UD PRN; Protocol PRN Reason: Hypoglycemia Treatment Stop: 10/08/22 15:42 Glucose (Glucose 40% Gel 15 Gm Tube) 15 - 30 gm PO UD PRN; Protocol PRN Reason: Hypoglycemia Protocol Stop: 10/08/22 15:42 Ceftriaxone Sodium 2,000 mg/ (Dextrose) 70 mls @ 100 mls/hr IV Q24H [facility]; Protocol Stop: 09/11/22 12:59 Last Infusion: 09/10/22 14:13 Dose: Infused Sodium Chloride (Nss 1000ml) 1,000 mls @ 80 mls/hr IV .[id number] [facility] Stop: 10/08/22 17:59 Last Infusion: 09/09/22 11:44 Dose: 0 mls/hr Insulin Aspart (Insulin Aspart Per Unit) 0 units SC ACHS [facility] Stop: 10/08/22 16:29 Last Admin: 09/10/22 21:59 Dose: 1 units Insulin Glargine (Lantus Per Unit Charge) 15 units SQ DAILY [facility] Stop: 10/11/22 08:59 Isosorbide Mononitrate (Isosorbide Brooks Extended Rel 60 Mg Tabcr) 60 mg PO DAILY [facility] Stop: 10/09/22 08:59 Last Admin: 09/10/22 09:06 Dose: 60 mg Lisinopril (Lisinopril 5 Mg Tab) 5 mg PO QAM [facility] Stop: 10/09/22 08:59 Last Admin: 09/10/22 09:06 Dose: 5 mg Metoprolol Tartrate (Metoprolol Tartrate 50 Mg Tab) 50 mg PO BID [facility] Stop: 10/08/22 20:59 Last Admin: 09/10/22 21:46 Dose: 50 mg Miscellaneous (Carbohydrates For Hypoglycemia ) 15 - 30 gm PO UD PRN PRN Reason: Hypoglycemia Protocol Stop: 10/08/22 15:42 Last Admin: 09/08/22 16:19 Dose: 15 gm Miscellaneous Information (Pharmacy Glycemic Mgmt Consult) 1 each N/A UD PRN; Protocol PRN Reason: Consult Stop: 10/08/22 16:30 Ondansetron HCl (Ondansetron Inj 2 Mg/Ml 2 Ml Vial) 4 mg IV Q6H PRN PRN Reason: Nausea And Vomiting Stop: 10/08/22 17:34 Last Admin: 09/10/22 21:48 Dose: 4 mg Oxycodone HCl (Oxycodone Hcl Ir 5 Mg Tab (Immediate Release)) 5 mg PO Q6H PRN PRN Reason: Pain Stop: 09/23/22 08:58 Last Admin: 09/10/22 21:46 Dose: 5 mg Polyethylene Glycol (Polyethylene (Miralax) 17 Gm Pack) 17 gm PO DAILY PRN PRN Reason: Constipation Stop: 10/08/22 15:42 Rivaroxaban (Rivaroxaban 20 Mg Tab) 20 mg PO QDD [facility] Stop: 10/09/22 16:29 Last Admin: 09/10/22 17:59 Dose: 20 mg
[2022-09-11] MEDS ORDERED: LANTUS PER UNIT CHARGE SQ SCH ×2 (09:00)
[2022-09-11] MEDS: oxyCODONE HCL IR 5 MG TAB (IMMEDIATE RELEASE) PO PRN ×2 (09:11→17:55)
[2022-09-11] MEDS: INSULIN ASPART PER UNIT SC SCH ×4 (09:11→20:36)
[2022-09-11] MEDS: allopurinoL 100 MG TAB PO SCH (09:13)
[2022-09-11] MEDS: ISOSORBIDE MONO EXTENDED REL 60 MG TABCR PO SCH (09:13)
[2022-09-11] MEDS: EZETIMIBE 10 MG TABLET PO SCH (09:13)
[2022-09-11] MEDS: ASPIRIN 81 MG CHEW PO SCH (09:13)
[2022-09-11] MEDS: METOPROLOL TARTRATE 50 MG TAB PO SCH ×2 (09:14→21:20)
[2022-09-11] MEDS: lisinopril 5 MG TAB PO SCH (09:14)
[2022-09-11 09:33] LABS: Uric Acid 5.9 mg/dl (2.6-7.2)
--- NOTE | 2022-09-11 09:35 | Pharmacy Report ---
Pharmacy Glycemic Short Note 2 - Date of Service September 11, 2022 - Glycemic Short BSG Results (Last 24 hours): 09/10/22 09/10/22 09/10/22 11:31 16:39 20:35 Glucose POC Glucose 103 H 124 H 142 H 09/11/22 09/11/22 07:14 07:37 Glucose 108 H POC Glucose 105 H OUTPATIENT ANTIDIABETIC REGIMEN: * Jardiance 25 mg PO daily * metformin ER 500 mg PO BID * Basaglar 32 units BID HbA1C = 10.7% (07/25/22) ASSESSMENT: 09/11/22: * BSGs very well-controlled yesterday, ranging 103-142 mg/dL * Received 23 units of insulin (17 units of basal and 6 units of prandial/correctional bolus) * Fasting BSG of 105 mg/dL this morning * Will slightly decrease Lantus in effort to decrease risk of hypoglycemia 09/10/22: * Patient's BSGs yesterday were [phone] mg/dL. Patient received 34 units of insulin (25 units of basal and 9 units of bolus). * Fasting today is trending down at 104 mg/dL. Decrease basal by 30% to 17 units. Further reduction of 30% available for tomorrow if BSGs continue to trend downwards. * Continue Novolog. BACKGROUND * Mr Hurst is a 71 y/o M with a PMH of T2DM who presents with arthralgias. * Initially, on admission, patient was hypoglycemic - 49/70. Patient only received his Lantus 30 units [employer]. * Today fasting is 127 mg/dL. Lunch is 118 mg/dL. * During the previous admission, patient required Lantus 22-25 units BID. Will start with Lantus 25 units daily for now. * Novolog weight-based stress of 2. PLAN FOR INPATIENT GLYCEMIC CONTROL: * Hold outpatient oral diabetes medications * Basal insulin - decrease * Lantus 15 units SC daily (~10% dose reduction) * Bolus insulin - continue * NovoLog per scale ACHS or Q6hrs while NPO * Goal Range: Low 110 mg/dL - High 140 mg/dL * Correction Factor: 35 mg/dL/unit * Nutritional / Prandial insulin per carb ratio of 1 unit per 11 grams CHO consumed
[2022-09-11] MEDS: DOXYCYCLINE HYCLATE 100 MG in DEXTROSE 5% 100 ML IV SCH ×2 (10:13→20:35)
[2022-09-11] MEDS: RIVAROXABAN 20 MG TAB PO SCH (17:00)
[2022-09-11] MEDS: ONDANSETRON INJ 2 MG/ML 2 ML VIAL IV PRN (17:55)
--- NOTE | 2022-09-11 18:10 | Orthopedic Consultation ---
Date of Consultation September 11, 2022 Assessment & Plan (1) Acute pain of left knee: Acute left knee pain with knee effusion. Increased inflammatory parameters. Knee sterilely prepped and aspirated for around 10 cc of clear appearing fluid with no purulence no cloudiness. Does not have appearance of infection. We will send this off for usual crystal analysis cell count differential cultures. Possibly arthritic flare or crystalline arthropathy flare. Doubt infection. History of Present Illness Reason for Consultation: Ongoing left knee pain Attending Physician: Gabe Encarnacion MD History of Present Illness Patient with multiple arthralgias admitted to the hospital. History of gout. Increasing ESR CRP but normal white count at 8.0 with ESR 62 CRP 11. White count was higher on admission at 14.8. Patient on oral antibiotics doxycycline and has had 2 doses of Rocephin. Asked to see patient re: left knee pain. Allergies Allergy/AdvReac Type Severity Reaction Status Date / Time morphine AdvReac Severe Vomiting Verified 07/25/22 00:16 rosuvastatin [From Crestor] AdvReac Intermediate Cramping Verified 07/25/22 00:16 of the Muscles Home Medications Medication Instructions Recorded Confirmed Type allopurinol 100 mg tablet 200 mg PO DAILY 07/25/22 09/08/22 History aspirin 81 mg chewable tablet 81 mg PO DAILY 07/25/22 09/08/22 History atorvastatin 80 mg tablet 80 mg PO QAM 07/25/22 09/08/22 History empagliflozin 25 mg tablet 25 mg PO DAILY 07/25/22 09/08/22 History (Jardiance) ezetimibe 10 mg tablet 10 mg PO QAM 07/25/22 09/08/22 History insulin glargine 100 unit/mL (3 32 unit subcut BID 07/25/22 09/08/22 History mL) subcutaneous pen (Basaglar KwikPen U-100 Insulin) metformin 500 mg tablet,extended 1,000 mg PO QAM 07/25/22 09/08/22 History release 24 hr metoprolol tartrate 50 mg tablet 50 mg PO BID 07/25/22 09/08/22 History rivaroxaban 20 mg tablet (Xarelto) 20 mg PO DAILY 07/25/22 09/08/22 History lisinopril 5 mg tablet 5 mg PO QAM 30 days #30 tabs 07/30/22 09/08/22 Rx dulaglutide 0.75 mg/0.5 mL 0.75 mg subcut WK 09/08/22 09/08/22 History subcutaneous pen injector (Trulicity) isosorbide mononitrate 60 mg 60 mg PO DAILY 09/08/22 09/08/22 History tablet,extended release 24 hr Patient History Medical History Anxiety Asthma in remission BPH (benign prostatic hyperplasia) BPH loc w urin obs/LUTS Broken rib r/t old sports injury, shows up on CXRs as abnormal, but was very remote (in college) and does not cause any pain. Cataract Chronic kidney disease Stage III. follows w/ dr. 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 Galloway, has not had symptoms beyond muscle twitches since the early Osteoarthritis PMR (polymyalgia rheumatica) Polyarthritis Precordial chest pain Prostate cancer screening SOB (shortness of breath) Supratherapeutic INR Thyroid nodule Surgical History H/O arthroscopic knee surgery History of appendectomy History of arthroscopy of left knee History of cardiac cath 15 years ago - CP led to cath - [facility] - no stents/angioplasty, ruled indigestion - does not follow w/ cardio History of carpal tunnel release BL History of carpal tunnel surgery History of coronary artery bypass graft CABG X 5 ON 08/19/2021 ([id number], Ao-ramus-OM, Ao-PDA W/ rev SVG) History of cystoscopy History of knee joint replacement x 2 rt knee History of repair of rotator cuff BL History of surgery LLE - hardware present History of tooth extraction History of total right knee replacement S/P appendectomy S/P rotator cuff repair Status post biopsy of thyroid gland benign Family History Daughter History of anesthesia reaction PONV Grandfather (Paternal) Family history of diabetes mellitus Mother Family history of diabetes mellitus Father Family history of diabetes mellitus Social History Smoking Status: Never smoker Tobacco Type: Smokeless Tobacco (Dip or Chew) Second Hand Exposure: No; Hx Alcohol Use: No Hx Substance Use: No Preferred Language: Nam[place]ian Communication Ability: Effective Facilities 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 Dr. Bueno was the surgeon. Main complaint is left knee pain. Has history of osteoarthritis in his left knee. Physical Exam Physical Exam: Moderate pain with range of motion of left knee range of motion of 10 through 90 degrees with a moderate effusion. No erythema. No severe pain with range of motion. Results & Data ([facility]) Vital Signs (Past 12 Hours) Vital Signs Temp Pulse Pulse Resp BP BP Pulse Ox 09/11/22 16:00 36.7 C 65 19 133/70 95 09/11/22 15:37 63 09/11/22 11:26 36.5 C 66 20 129/72 95 09/11/22 07:52 37.1 C 71 20 136/75 94 09/11/22 07:33 60 O2 Del Method 09/11/22 16:00 Room Air 09/11/22 15:37 09/11/22 11:26 Room Air 09/11/22 07:52 Room Air 09/11/22 07:33 Diagnostic Findings X-ray left knee demonstrates mainly patellofemoral OA mild to moderate with mild tibiofemoral OA
[2022-09-11 20:30] LABS: Appearance Synovial Fluid Hazy; Color Synovial Fluid Yellow; Mononuclear WBC Synovial 53.6 %; Polynuclear WBC Synovial 46.4 %; RBC Synovial Fluid Auto 3000 /uL; Source Synovial Fluid Left Knee; WBC Synovial Fluid Auto 2186 /ul (0-200)
[2022-09-12 07:46] LABS: Hematocrit (blood only) 40.4 % (42.0-52.0); Hemoglobin 13.6 g/dl (14.0-18.0); Mean Corpuscular Hemoglobin 30.8 pg (25.0-34.0); Mean Corpuscular Hgb Conc 33.7 g/dL (32.0-36.0); Mean Corpuscular Volume 91.6 fL (80.0-100.0); Mean Platelet Volume 10.1 fL (9.4-12.4); Platelet Count 227 K/uL (130-400); RDW Coefficient of Variation 13.3 % (11.5-14.5); RDW Standard Deviation 45.2 fL (36.4-46.3); Red Blood Count 4.41 M/uL (4.70-6.10); White Blood Count 6.71 K/ul (4.8-10.8)
[2022-09-12 08:05] LABS: BUN Creatinine Ratio 20.3 (10-20); Calcium 9.1 mg/dl (8.5-10.1); Creatinine Clr Calc Pharmacy 48.1 ml/min; Est GFR (African American) 56.3 ml/min; Est GFR (Non-African American) 48.6 ml/min; Magnesium 1.8 mg/dl (1.7-2.4); Phosphorus 3.1 mg/dl (2.5-4.9); Potassium 4.2 mmol/L (3.5-5.1)
[2022-09-12] MEDS: INSULIN ASPART PER UNIT SC SCH ×4 (08:30→21:01)
[2022-09-12] MEDS: LANTUS PER UNIT CHARGE SQ SCH (08:30)
[2022-09-12] MEDS: allopurinoL 100 MG TAB PO SCH (08:33)
[2022-09-12] MEDS: ASPIRIN 81 MG CHEW PO SCH (08:33)
[2022-09-12] MEDS: lisinopril 5 MG TAB PO SCH (08:34)
[2022-09-12] MEDS: EZETIMIBE 10 MG TABLET PO SCH (08:34)
[2022-09-12] MEDS: ISOSORBIDE MONO EXTENDED REL 60 MG TABCR PO SCH (08:34)
[2022-09-12] MEDS: METOPROLOL TARTRATE 50 MG TAB PO SCH ×2 (08:34→21:01)
--- NOTE | 2022-09-12 09:07 | Hospitalist Progress Note ---
Date of Service September 12, 2022 Assessment & Plan (1) Arthralgia: (2) Generalized weakness: Plan: Patient is 71-year-old male with PMH CAD, NSTEMI s/p CABG 08/19/2021, chronic stable angina, HTN, HLD, DM II, CKD III, MS, gout, multinodular goiter, polymyalgia rheumatica, h/o DVT on chronic anticoagulation with Xarelto presented to ER with c/o onset diffuse bilateral arthralgias. Pt then also spiked fever and had rigors immediately after admission. DDX: sepsis/bacteremia, PMR, MS flare, GCA Negative Lyme Anaplasma pending ESR: 22 -> 62, CRP: < 0.5 ->11.8 on admission values unremarkable however now on repeat elevated Infectious work-up as below CT head: No acute findings Fall precautions Neurology consult Spoke with stock drier tender, Dr Lock on phone on admission. Since inflammatory markers are relatively unremarkable recommends if blood cultures negative and no source of infection to start 10-20mg prednisone daily. this was however before pt spiked fever. (3) Rigors: Plan: DDX: sepsis/bacteremia Rigors noted in ER. Afebrile in ER. Vital stable. Pt became febrile shortly after admission. Denies cough, vomiting, diarrhea, urinary symptoms WBC: 14. UA unremarkable. CXR: No infiltrate. Procalcitonin WNL. Negative SARS-CoV-2 PCR, negative influenza and RSV PCR Lactate: 2.3-->1.6 Blood cultures pending / so far negative In ER given Rocephin, 1L NSS Continue Rocephin, added doxycycline. If would have continued fevers may need to consider more broad spectrum antibiotics anaplasma pending Lyme negative repeated respiratory biofire -full panel (patient history of influenza during last admission recently, influenza negative in the ED, influenza equivocal results on repeat BioFire) Currently afebrile after starting Abx Will further discuss w/ ID, ID consult pending (4) Chest pain: (5) CAD (coronary artery disease): Plan: CAD, NSTEMI s/p CABG 08/19/2021, chronic stable angina Recent hospital admission 07/25/2022- 07/30/2022 for DKA, influenza A, type II NSTEMI in setting of demand ischemia. 07/25/2022 echo: Moderate concentric LVH, mild hypokinesis inferior and septal apex, grade 1 diastolic dysfunction 07/28/2022 echo: EF: 65-70%, moderate concentric LVH, no regional wall motion abnormalities Episode midsternal nonradiating chest pain with associated nausea, lightheadedness today around 7:30 AM Denies current chest pain or shortness of breath Initial high-sensitivity troponin: 8. EKG without acute ST elevation Trended troponin Continue aspirin, atorvastatin, isosorbide, metoprolol tartrate Cardiology consulted, and concern for possible pericarditis, limited echo ordered No recurrent chest pain, per cardiology no need to treat for possible pericarditis (6) DM type 2 (diabetes mellitus, type 2): Plan: A1c: 10.7 % on 07/25/2022 Hold home glycemic agents Basal bolus insulin per protocol (7) CKD (chronic kidney disease), stage III: Plan: Cr: 1.59. Baseline 1.4-1.6 per outpatient chart review current 1.43 Monitor renal functions, avoid nephrotoxic agents when possible (8) Hypertension: Plan: Stable Continue lisinopril, metoprolol tartrate (9) Deep vein thrombosis: Plan: History of DVT. Chronically anticoagulated on Xarelto Continue Xarelto (10) PMR (polymyalgia rheumatica): Plan: Follows with rheumatology, Dr. Lock 09/10 Pt Continues to have joint pain, hands are mildly edematous, left knee has mild edema, difficulty to move the joint. Tender and painful when moving. No erythema over any joints noted however. Family at the bedside, and reports that patient has been seen by orthopedics, also diagnosis of gout/pseudogout. Patient w/history of right knee replacement, and also shoulder surgery. L knee X-ray obtained - Soft tissue swelling and joint effusion with no acute bony abnormality identified. Left knee with mild edema and difficulty to move, painful, x-ray of left knee obtained as above - shows joint effusion - UOC consulted and joint was aspirated, fluid studies pending Uric acid obtained on admission, level 5.9. repeat uric acid - same. Patient is currently on allopurinol. ESR CRP unremarkable on admission, however quite elevated now. (11) Multiple sclerosis: Plan: Follows with neurology, Dr. Galloway Outpatient neurology note reviewed: Reported vague history of MS based on s ymptoms of fatigue, numbness in feet and abnormal MRI scans in the past. Patient has had clinically inactive symptoms throughout and had never received disease modifying therapy Neurology consulted given "vision changes" reported by the pt prior to admission. Symptoms resolved, and per neurology not likely MS flare. (12) Gout: Plan: Continue allopurinol DVT Prophylaxis On Xarelto DNR/DNI as per discussion with pt Follows with Dr Chen for routine care Admission and Anticipated Discharge Date Admission Date: September 08, 2022 Subjective Pt is 71-year-old male with PMH CAD, NSTEMI s/p CABG 08/19/2021, chronic stable angina, HTN, HLD, DM II, CKD III, MS, gout, multinodular goiter, polymyalgia rheumatica, h/o DVT on chronic anticoagulation with Xarelto presented to ER with c/o onset diffuse bilateral arthralgias. Febrile w/ rigors shortly after admission. Infectious source currently not identified. Chest x-ray negative, UA negative, lyme negative. blood cultures obtained and pending/ so far negative. Patient was started on empiric antibiotic on admission Seen by cardiology, limited echo ordered to evaluate for possible pericarditis. Chest pain resolved. Patient w/ some edema in his hands, left lower extremity. Left knee with mild edema but no erythema noted. Painful to move left knee. Painful to close his hand as well d/t joint stiffness/ tenderness. CRP ESR unremarkable on admission, however now elevated. X-ray of left knee obtained - shows joint effusion, UOC consulted and joint was aspirated yesterday. Patient afebrile now. Sitting in the chair in NAD, reports feeling overall better. Hands w/ less edema but still w/ painful joints, and L knee painful. No chest pain shortness of breath. Mostly concerned about joint pain and weakness. Review of Systems Review of Systems: All systems reviewed & are unremarkable except as noted in Subjective Physical Exam Physical Exam: General: no distress, WDWN Head: normocephalic, atraumatic Eyes: PERRL, EOM's intact, conjunctiva non-injected, anicteric ENT: normal inspection external ears, nose, mucous membranes moist Neck: supple Lungs: clear, no respiratory distress, no wheezing/rhonchi/rales CV: RRR, no murmur, no JVD, no pretibial edema Abd: normal BS, soft, non-tender Ext: no cyanosis, no calf tenderness, +limited flexion and extension of bilateral fingers secondary to tenderness/stiffness. No erythema noted to joints but with +diffuse tenderness to palpation, bilateral shoulders, bilateral elbows, bilateral wrists, fingers, bilateral hips, bilateral knees and ankles and feet. + mild edema of both hands and Left knee (no erythema over any joint noted) Neuro: A&O x 3, no focal deficits noted, normal affect Skin: warm, dry Results & Data Results & Data ([facility]) Vital Signs (Past 12 Hours) Vital Signs Temp Pulse Pulse Resp BP BP Pulse Ox 09/12/22 07:18 36.7 C 70 18 148/76 H 94 09/12/22 07:12 69 09/12/22 02:35 37.1 C 70 20 126/80 93 09/11/22 21:59 77 09/11/22 23:25 37.0 C 76 18 123/65 96 09/11/22 21:19 74 129/73 O2 Del Method 09/12/22 07:18 Room Air 09/12/22 07:12 09/12/22 02:35 Room Air 09/11/22 21:59 09/11/22 23:25 Room Air 09/11/22 21:19 Laboratory Results 09/12/22 09/12/22 09/12/22 Range/Units 07:25 07:24 07:24 WBC 6.71 (4.8-10.8) K/ul RBC 4.41 L (4.70-6.10) M/uL Hgb 13.6 L (14.0-18.0) g/dl Hct 40.4 L (42.0-52.0) % MCV 91.6 (80.0-100.0) fL MCH 30.8 (25.0-34.0) pg MCHC 33.7 (32.0-36.0) g/dL RDW Std Deviation 45.2 (36.4-46.3) fL RDW Coeff of Leo 13.3 (11.5-14.5) % Plt Count 227 (130-400) K/uL MPV 10.1 (9.4-12.4) fL Sodium 136 (136-145) mmol/L Potassium 4.2 (3.5-5.1) mmol/L Chloride 104 (98-107) mmol/L Carbon Dioxide 24 (21-32) mmol/L Anion Gap 8 (3-11) BUN 29 H (6-23) mg/dl Creatinine 1.43 H (0.6-1.4) mg/dl Est Cr Clr Drug Dosing 48.1 ml/min Est GFR ( Amer) 56.3 ml/min Est GFR (Non-Af Amer) 48.6 ml/min BUN/Creatinine Ratio 20.3 H (10-20) Glucose 137 H (70-99(Fasting)) mg/dl POC Glucose 132 H (70-99) mg/dl Uric Acid (2.6-7.2) mg/dl Calcium 9.1 (8.5-10.1) mg/dl Phosphorus 3.1 (2.5-4.9) mg/dl Magnesium 1.8 (1.7-2.4) mg/dl Fluid Comment Synovial Source Synovial Color Synovial Appearance Synovial WBC (Auto) (0-200) /ul Synovial RBC (Auto) /uL Synovial Polynuclear % % Synovial Mononuclear % % Synovial Crystals 09/11/22 09/11/22 09/11/22 Range/Units 20:03 18:08 18:08 WBC (4.8-10.8) K/ul RBC (4.70-6.10) M/uL Hgb (14.0-18.0) g/dl Hct (42.0-52.0) % MCV (80.0-100.0) fL MCH (25.0-34.0) pg MCHC (32.0-36.0) g/dL RDW Std Deviation (36.4-46.3) fL RDW Coeff of Leo (11.5-14.5) % Plt Count (130-400) K/uL MPV (9.4-12.4) fL Sodium (136-145) mmol/L Potassium (3.5-5.1) mmol/L Chloride (98-107) mmol/L Carbon Dioxide (21-32) mmol/L Anion Gap (3-11) BUN (6-23) mg/dl Creatinine (0.6-1.4) mg/dl Est Cr Clr Drug Dosing ml/min Est GFR ( Amer) ml/min Est GFR (Non-Af Amer) ml/min BUN/Creatinine Ratio (10-20) Glucose (70-99(Fasting)) mg/dl POC Glucose 165 H (70-99) mg/dl Uric Acid (2.6-7.2) mg/dl Calcium (8.5-10.1) mg/dl Phosphorus (2.5-4.9) mg/dl Magnesium (1.7-2.4) mg/dl Fluid Comment Synovial Source Left Knee Synovial Color Yellow Synovial Appearance Hazy Synovial WBC (Auto) 2186 H (0-200) /ul Synovial RBC (Auto) 3000 /uL Synovial Polynuclear % 46.4 % Synovial Mononuclear % 53.6 % Synovial Crystals Pending 09/11/22 09/11/22 09/11/22 Range/Units 16:43 11:36 07:14 WBC (4.8-10.8) K/ul RBC (4.70-6.10) M/uL Hgb (14.0-18.0) g/dl Hct (42.0-52.0) % MCV (80.0-100.0) fL MCH (25.0-34.0) pg MCHC (32.0-36.0) g/dL RDW Std Deviation (36.4-46.3) fL RDW Coeff of Leo (11.5-14.5) % Plt Count (130-400) K/uL MPV (9.4-12.4) fL Sodium (136-145) mmol/L Potassium (3.5-5.1) mmol/L Chloride (98-107) mmol/L Carbon Dioxide (21-32) mmol/L Anion Gap (3-11) BUN (6-23) mg/dl Creatinine (0.6-1.4) mg/dl Est Cr Clr Drug Dosing ml/min Est GFR ( Amer) ml/min Est GFR (Non-Af Amer) ml/min BUN/Creatinine Ratio (10-20) Glucose (70-99(Fasting)) mg/dl POC Glucose 132 H 157 H (70-99) mg/dl Uric Acid Cancelled (2.6-7.2) mg/dl Calcium (8.5-10.1) mg/dl Phosphorus (2.5-4.9) mg/dl Magnesium (1.7-2.4) mg/dl Fluid Comment Synovial Source Synovial Color Synovial Appearance Synovial WBC (Auto) (0-200) /ul Synovial RBC (Auto) /uL Synovial Polynuclear % % Synovial Mononuclear % % Synovial Crystals 09/11/22 Range/Units 07:14 WBC (4.8-10.8) K/ul RBC (4.70-6.10) M/uL Hgb (14.0-18.0) g/dl Hct (42.0-52.0) % MCV (80.0-100.0) fL MCH (25.0-34.0) pg MCHC (32.0-36.0) g/dL RDW Std Deviation (36.4-46.3) fL RDW Coeff of Leo (11.5-14.5) % Plt Count (130-400) K/uL MPV (9.4-12.4) fL Sodium (136-145) mmol/L Potassium (3.5-5.1) mmol/L Chloride (98-107) mmol/L Carbon Dioxide (21-32) mmol/L Anion Gap (3-11) BUN (6-23) mg/dl Creatinine (0.6-1.4) mg/dl Est Cr Clr Drug Dosing ml/min Est GFR ( Amer) ml/min Est GFR (Non-Af Amer) ml/min BUN/Creatinine Ratio (10-20) Glucose (70-99(Fasting)) mg/dl POC Glucose (70-99) mg/dl Uric Acid 5.9 (2.6-7.2) mg/dl Calcium (8.5-10.1) mg/dl Phosphorus (2.5-4.9) mg/dl Magnesium (1.7-2.4) mg/dl Fluid Comment Synovial Source Synovial Color Synovial Appearance Synovial WBC (Auto) (0-200) /ul Synovial RBC (Auto) /uL Synovial Polynuclear % % Synovial Mononuclear % % Synovial Crystals Medications Administered Current Inpatient Medications Acetaminophen (Acetaminophen 325 Mg Tab) 650 mg PO Q4H PRN PRN Reason: Pain or Fever Stop: 10/08/22 15:42 Last Admin: 09/09/22 19:58 Dose: 650 mg Allopurinol (Allopurinol 100 Mg Tab) 200 mg PO DAILY JOY[facility] Stop: 10/09/22 08:59 Last Admin: 02/21/23 08:33 Dose: 200 mg Aspirin (Aspirin 81 Mg Chew) 81 mg PO DAILY [facility] Stop: 10/09/22 08:59 Last Admin: 09/12/22 08:33 Dose: 81 mg Dextrose (Dextrose 50% 50 Ml Syringe) 25 - 50 ml IV UD PRN; Protocol PRN Reason: Hypoglycemia Protocol Stop: 10/08/22 15:42 Ezetimibe (Ezetimibe 10 Mg Tablet) 10 mg PO QAM [facility] Stop: 10/09/22 08:59 Last Admin: 09/12/22 08:34 Dose: 10 mg Glucagon (Glucagon For Inj 1 Mg Vial) 1 mg SQ UD PRN; Protocol PRN Reason: Hypoglycemia Protocol Stop: 10/08/22 15:42 Glucose (Glucose 10 Tab/Tube) 4 - 8 tab PO UD PRN; Protocol PRN Reason: Hypoglycemia Treatment Stop: 10/08/22 15:42 Glucose (Glucose 40% Gel 15 Gm Tube) 15 - 30 gm PO UD PRN; Protocol PRN Reason: Hypoglycemia Protocol Stop: 10/08/22 15:42 Sodium Chloride (Nss 1000ml) 1,000 mls @ 80 mls/hr IV .[id number] [facility] Stop: 10/08/22 17:59 Last Infusion: 09/09/22 11:44 Dose: 0 mls/hr Doxycycline Hyclate 100 mg/ (Dextrose) 110 mls @ 50 mls/hr IV Q12H [facility]; Protocol Stop: 09/13/22 08:59 Last Infusion: 09/11/22 23:37 Dose: Infused Insulin Aspart (Insulin Aspart Per Unit) 0 units SC ACHS [facility] Stop: 10/08/22 16:29 Last Admin: 09/12/22 08:30 Dose: 3 units Insulin Glargine (Lantus Per Unit Charge) 17 units SQ DAILY [facility] Stop: 10/12/22 08:59 Last Admin: 09/12/22 08:30 Dose: 17 units Isosorbide Mononitrate (Isosorbide [place] Extended Rel 60 Mg Tabcr) 60 mg PO DAILY [facility] Stop: 10/09/22 08:59 Last Admin: 09/12/22 08:34 Dose: 60 mg Lisinopril (Lisinopril 5 Mg Tab) 5 mg PO QAM [facility] Stop: 10/09/22 08:59 Last Admin: 09/12/22 08:34 Dose: 5 mg Metoprolol Tartrate (Metoprolol Tartrate 50 Mg Tab) 50 mg PO BID [facility] Stop: 10/08/22 20:59 Last Admin: 09/12/22 08:34 Dose: 50 mg Miscellaneous (Carbohydrates For Hypoglycemia ) 15 - 30 gm PO UD PRN PRN Reason: Hypoglycemia Protocol Stop: 10/08/22 15:42 Last Admin: 09/08/22 16:19 Dose: 15 gm Miscellaneous Information (Pharmacy Glycemic Mgmt Consult) 1 each N/A UD PRN; Protocol PRN Reason: Consult Stop: 10/08/22 16:30 Ondansetron HCl (Ondansetron Inj 2 Mg/Ml 2 Ml Vial) 4 mg IV Q6H PRN PRN Reason: Nausea And Vomiting Stop: 10/08/22 17:34 Last Admin: 09/11/22 17:55 Dose: 4 mg Oxycodone HCl (Oxycodone Hcl Ir 5 Mg Tab (Immediate Release)) 5 mg PO Q6H PRN PRN Reason: Pain Stop: 09/23/22 08:58 Last Admin: 09/11/22 17:55 Dose: 5 mg Polyethylene Glycol (Polyethylene (Miralax) 17 Gm Pack) 17 gm PO DAILY PRN PRN Reason: Constipation Stop: 10/08/22 15:42 Rivaroxaban (Rivaroxaban 20 Mg Tab) 20 mg PO QDD [facility] Stop: 10/09/22 16:29 Last Admin: 09/11/22 17:00 Dose: 20 mg
[2022-09-12] MEDS: DOXYCYCLINE HYCLATE 100 MG in DEXTROSE 5% 100 ML IV SCH ×2 (10:03→21:01)
[2022-09-12] MEDS: RIVAROXABAN 20 MG TAB PO SCH (17:31)
[2022-09-13 07:51] LABS: Basophils # (auto) 0.03 K/uL (0-0.2); Basophils % (auto) 0.5 %; Eosinophils # (auto) 0.69 K/uL (0-0.50); Eosinophils % (auto) 11.1 %; Hemoglobin 13.7 g/dl (14.0-18.0); Immature Granulocytes # (auto) 0.02 K/uL (0.01-0.20); Immature Granulocytes % (auto) 0.3 %; Lymphocytes # (auto) 1.42 K/uL (1.2-3.4); Lymphocytes % (auto) 22.8 %; Mean Corpuscular Hemoglobin 30.8 pg (25.0-34.0); Mean Corpuscular Hgb Conc 33.4 g/dL (32.0-36.0); Mean Corpuscular Volume 92.1 fL (80.0-100.0); Mean Platelet Volume 9.9 fL (9.4-12.4); Monocytes % (auto) 11.2 %; Neutrophils # (auto) 3.38 K/uL (1.40-6.50); Neutrophils % (auto) 54.1 %; Platelet Count 230 K/uL (130-400); RDW Coefficient of Variation 13.6 % (11.5-14.5); RDW Standard Deviation 46.3 fL (36.4-46.3); Red Blood Count 4.45 M/uL (4.70-6.10); White Blood Count 6.24 K/ul (4.8-10.8)
[2022-09-13 08:05] LABS: BUN Creatinine Ratio 22.3 (10-20); Calcium 9.5 mg/dl (8.5-10.1); Creatinine Clr Calc Pharmacy 55.2 ml/min; Est GFR (African American) 68.9 ml/min; Est GFR (Non-African American) 59.5 ml/min; Magnesium 1.8 mg/dl (1.7-2.4); Phosphorus 3.3 mg/dl (2.5-4.9)
[2022-09-13] MEDS: INSULIN ASPART PER UNIT SC SCH ×4 (08:24→21:43)
[2022-09-13] MEDS: lisinopril 5 MG TAB PO SCH (08:27)
[2022-09-13] MEDS: ASPIRIN 81 MG CHEW PO SCH (08:27)
[2022-09-13] MEDS: METOPROLOL TARTRATE 50 MG TAB PO SCH ×2 (08:27→21:43)
[2022-09-13] MEDS: ISOSORBIDE MONO EXTENDED REL 60 MG TABCR PO SCH (08:27)
[2022-09-13] MEDS: EZETIMIBE 10 MG TABLET PO SCH (08:27)
[2022-09-13] MEDS: allopurinoL 100 MG TAB PO SCH (08:27)
[2022-09-13] MEDS: LANTUS PER UNIT CHARGE SQ SCH (08:28)
--- NOTE | 2022-09-13 08:43 | Hospitalist Progress Note ---
Date of Service September 13, 2022 Assessment & Plan (1) Arthralgia: (2) Generalized weakness: Plan: Patient is 71-year-old male with PMH CAD, NSTEMI s/p CABG 08/19/2021, chronic stable angina, HTN, HLD, DM II, CKD III, MS, gout, multinodular goiter, polymyalgia rheumatica, h/o DVT on chronic anticoagulation with Xarelto presented to ER with c/o onset diffuse bilateral arthralgias. Pt then also spiked fever and had rigors immediately after admission. DDX: sepsis/bacteremia, PMR, MS flare, GCA Negative Lyme Anaplasma pending ESR: 22 -> 62, CRP: < 0.5 ->11.8 on admission values unremarkable however now on repeat elevated Infectious work-up as below CT head: No acute findings Fall precautions Neurology consult Spoke with net mobile developer, Dr Lock on phone on admission. Since inflammatory markers are relatively unremarkable recommends if blood cultures negative and no source of infection to start 10-20mg prednisone daily. this was however before pt spiked fever. (3) Rigors: Plan: DDX: sepsis/bacteremia Rigors noted in ER. Afebrile in ER. Vital stable. Pt became febrile shortly after admission. Denies cough, vomiting, diarrhea, urinary symptoms WBC: 14. UA unremarkable. CXR: No infiltrate. Procalcitonin WNL. Negative SARS-CoV-2 PCR, negative influenza and RSV PCR Lactate: 2.3-->1.6 Blood cultures pending / so far negative In ER given Rocephin, 1L NSS Continue Rocephin, added doxycycline. If would have continued fevers may need to consider more broad spectrum antibiotics anaplasma pending Lyme negative repeated respiratory biofire -full panel (patient history of influenza during last admission recently, influenza negative in the ED, influenza equivocal results on repeat BioFire) Currently afebrile after starting Abx ID consulted , appreciate their input -Even though no infectious source identified at this time, okay to continue doxycycline for now, awaiting Anaplasma studies results. As patient is no longer febrile, okay to trial prednisone for possible rheumatologic issues. Discussed this with the patient, patient is somewhat hesitant about steroid use, as it makes his blood glucose level elevated and difficult to control. He will think about the next steps. (4) Chest pain: (5) CAD (coronary artery disease): Plan: CAD, NSTEMI s/p CABG 08/19/2021, chronic stable angina Recent hospital admission 07/25/2022- 07/30/2022 for DKA, influenza A, type II NSTEMI in setting of demand ischemia. 07/25/2022 echo: Moderate concentric LVH, mild hypokinesis inferior and septal apex, grade 1 diastolic dysfunction 07/28/2022 echo: EF: 65-70%, moderate concentric LVH, no regional wall motion abnormalities Episode midsternal nonradiating chest pain with associated nausea, lightheadedness today around 7:30 AM Denies current chest pain or shortness of breath Initial high-sensitivity troponin: 8. EKG without acute ST elevation Trended troponin Continue aspirin, atorvastatin, isosorbide, metoprolol tartrate Cardiology consulted, and concern for possible pericarditis, limited echo ordered No recurrent chest pain, per cardiology no need to treat for possible pericarditis (6) DM type 2 (diabetes mellitus, type 2): Plan: A1c: 10.7 % on 07/25/2022 Hold home glycemic agents Basal bolus insulin per protocol (7) CKD (chronic kidney disease), stage III: Plan: Cr: 1.59. Baseline 1.4-1.6 per outpatient chart review current 1.2 Monitor renal functions, avoid nephrotoxic agents when possible (8) Hypertension: Plan: Stable Continue lisinopril, metoprolol tartrate (9) Deep vein thrombosis: Plan: History of DVT. Chronically anticoagulated on Xarelto Continue Xarelto (10) PMR (polymyalgia rheumatica): Plan: Follows with rheumatology, Dr. Lock 09/10 Pt Continues to have joint pain, hands are mildly edematous, left knee has mild edema, difficulty to move the joint. Tender and painful when moving. No erythema over any joints noted however. Family at the bedside, and reports that patient has been seen by orthopedics, also diagnosis of gout/pseudogout. Patient w/history of right knee replacement, and also shoulder surgery. L knee X-ray obtained - Soft tissue swelling and joint effusion with no acute bony abnormality identified. Left knee with mild edema and difficulty to move, painful, x-ray of left knee obtained as above - shows joint effusion - UOC consulted and joint was aspirated, fluid studies pending Uric acid obtained on admission, level 5.9. repeat uric acid - same. Patient is currently on allopurinol. ESR CRP unremarkable on admission, however quite elevated now. 09/13 - synovial fluid WBC 2186, no crystal noted in synovial fluid - No monosodium urate crystals (gout) or calcium pyrophosphate dihydrate crystals (pseudogout) identified. (11) Multiple sclerosis: Plan: Follows with neurology, Dr. Galloway Outpatient neurology note reviewed: Reported vague history of MS based on symptoms of fatigue, numbness in feet and abnormal MRI scans in the past. Patient has had clinically inactive symptoms throughout and had never received disease modifying therapy Neurology consulted given "vision changes" reported by the pt prior to admission. Symptoms resolved, and per neurology not likely MS flare. (12) Gout: Plan: Continue allopurinol DVT Prophylaxis On Xarelto DNR/DNI as per discussion with pt Follows with Dr Chen for routine care Admission and Anticipated Discharge Date Admission Date: September 08, 2022 Subjective Pt is 71-year-old male with PMH CAD, NSTEMI s/p CABG 08/19/2021, chronic stable angina, HTN, HLD, DM II, CKD III, MS, gout, multinodular goiter, polymyalgia rheumatica, h/o DVT on chronic anticoagulation with Xarelto presented to ER with c/o onset diffuse bilateral arthralgias. Febrile w/ rigors shortly after admission. Infectious source currently not identified. Chest x-ray negative, UA negative, lyme negative. blood cultures obtained and pending/ so far negative. Patient was started on empiric antibiotic on admission Seen by cardiology, limited echo ordered to evaluate for possible pericarditis. Chest pain resolved. Patient w/ some edema in his hands, left lower extremity. Now edema much improved. Left knee with mild edema but no erythema noted. Painful to move left knee. Painful to close his hand as well d/t joint stiffness/ tenderness. CRP ESR unremarkable on admission, however now elevated. X-ray of left knee obtained - shows joint effusion, UOC consulted and joint was aspirated. Patient afebrile now. Sitting up in bed in NAD, reports feeling overall better. Hands w/ less edema but still w/ painful joints, and L knee painful. No chest pain shortness of breath. Mostly concerned about joint pain and weakness. Patient seen by infectious disease yesterday, discussed that it is okay to continue antibiotic until Anaplasma studies are back. Also okay to start prednisone for possible rheumatologic issues, as no fever since admission. Patient still has issues with his joints, however overall improved. He is hesitant about steroids as it always makes his blood glucose levels elevated and difficult to control. He will think about if he wants to try steroids or not. Review of Systems Review of Systems: All systems reviewed & are unremarkable except as noted in Subjective Physical Exam Physical Exam: General: no distress, WDWN Head: normocephalic, atraumatic Eyes: PERRL, EOM's intact, conjunctiva non-injected, anicteric ENT: normal inspection external ears, nose, mucous membranes moist Neck: supple Lungs: clear, no respiratory distress, no wheezing/rhonchi/rales CV: RRR, no murmur, no JVD, no pretibial edema Abd: normal BS, soft, non-tender Ext: +limited flexion and extension of bilateral fingers secondary to tenderness/stiffness. No erythema noted to joints but with +diffuse tenderness to palpation, bilateral shoulders, bilateral elbows, bilateral wrists, fingers, bilateral hips, bilateral knees and ankles and feet. + mild edema of both hands and Left knee (no erythema over any joint noted), overall improved somewhat though Neuro: A&O x 3, no focal deficits noted, normal affect Skin: warm, dry Results & Data Results & Data ([facility]) Vital Signs (Past 12 Hours) Vital Signs Temp Pulse Pulse Resp BP BP Pulse Ox 09/13/22 07:59 36.3 C L 66 18 145/86 H 94 09/13/22 07:40 62 09/13/22 03:11 37.3 C 66 16 147/66 H 96 09/12/22 22:05 36.7 C 73 18 143/82 H 94 09/12/22 22:17 70 O2 Del Method 09/13/22 07:59 Room Air 09/13/22 07:40 09/13/22 03:11 Room Air 09/12/22 22:05 Room Air 09/12/22 22:17 Laboratory Results 09/13/22 09/13/22 09/13/22 Range/Units 07:43 07:08 07:08 WBC 6.24 (4.8-10.8) K/ul RBC 4.45 L (4.70-6.10) M/uL Hgb 13.7 L (14.0-18.0) g/dl Hct 41.0 L (42.0-52.0) % MCV 92.1 (80.0-100.0) fL MCH 30.8 (25.0-34.0) pg MCHC 33.4 (32.0-36.0) g/dL RDW Std Deviation 46.3 (36.4-46.3) fL RDW Coeff of Leo 13.6 (11.5-14.5) % Plt Count 230 (130-400) K/uL MPV 9.9 (9.4-12.4) fL Immature Gran % (Auto) 0.3 % Neut % (Auto) 54.1 % Lymph % (Auto) 22.8 % [place] % (Auto) 11.2 % Eos % (Auto) 11.1 % Baso % (Auto) 0.5 % Neut # (Auto) 3.38 (1.40-6.50) K/uL Lymph # (Auto) 1.42 (1.2-3.4) K/uL [place] # (Auto) 0.70 H (0.11-0.59) K/uL Eos # (Auto) 0.69 H (0-0.50) K/uL Baso # (Auto) 0.03 (0-0.2) K/uL Immature Gran # (Auto) 0.02 (0.01-0.20) K/uL Sodium 140 (136-145) mmol/L Potassium 4.0 (3.5-5.1) mmol/L Chloride 107 (98-107) mmol/L Carbon Dioxide 25 (21-32) mmol/L Anion Gap 8 (3-11) BUN 27 H (6-23) mg/dl Creatinine 1.21 (0.6-1.4) mg/dl Est Cr Clr Drug Dosing 55.2 ml/min Est GFR ( Amer) 68.9 ml/min Est GFR (Non-Af Amer) 59.5 ml/min BUN/Creatinine Ratio 22.3 H (10-20) Glucose 154 H (70-99(Fasting)) mg/dl POC Glucose 139 H (70-99) mg/dl Calcium 9.5 (8.5-10.1) mg/dl Phosphorus 3.3 (2.5-4.9) mg/dl Magnesium 1.8 (1.7-2.4) mg/dl Synovial Crystals [place] Type A(2) Ab [place] Type A(4) Ab [place] Type A(7) Ab [place] Type A(9) Ab [place] Type A(10) Ab [place] Type A(16) Ab [place] Type B(1) Ab [place] Type B(2) Ab [place] Type B(3) Ab [place] Type B(4) Ab [place] Type B(5) Ab [place] Type B(6) Ab 09/12/22 09/12/22 09/12/22 Range/Units 20:45 16:42 11:20 WBC (4.8-10.8) K/ul RBC (4.70-6.10) M/uL Hgb (14.0-18.0) g/dl Hct (42.0-52.0) % MCV (80.0-100.0) fL MCH (25.0-34.0) pg MCHC (32.0-36.0) g/dL RDW Std Deviation (36.4-46.3) fL RDW Coeff of Leo (11.5-14.5) % Plt Count (130-400) K/uL MPV (9.4-12.4) fL Immature Gran % (Auto) % Neut % (Auto) % Lymph % (Auto) % [place] % (Auto) % Eos % (Auto) % Baso % (Auto) % Neut # (Auto) (1.40-6.50) K/uL Lymph # (Auto) (1.2-3.4) K/uL [place] # (Auto) (0.11-0.59) K/uL Eos # (Auto) (0-0.50) K/uL Baso # (Auto) (0-0.2) K/uL Immature Gran # (Auto) (0.01-0.20) K/uL Sodium (136-145) mmol/L Potassium (3.5-5.1) mmol/L Chloride (98-107) mmol/L Carbon Dioxide (21-32) mmol/L Anion Gap (3-11) BUN (6-23) mg/dl Creatinine (0.6-1.4) mg/dl Est Cr Clr Drug Dosing ml/min Est GFR ( Amer) ml/min Est GFR (Non-Af Amer) ml/min BUN/Creatinine Ratio (10-20) Glucose (70-99(Fasting)) mg/dl POC Glucose 127 H 116 H 216 H (70-99) mg/dl Calcium (8.5-10.1) mg/dl Phosphorus (2.5-4.9) mg/dl Magnesium (1.7-2.4) mg/dl Synovial Crystals [place] Type A(2) Ab [place] Type A(4) Ab [place] Type A(7) Ab [place] Type A(9) Ab [place] Type A(10) Ab [place] Type A(16) Ab [place] Type B(1) Ab [place] Type B(2) Ab [place] Type B(3) Ab [place] Type B(4) Ab [place] Type B(5) Ab [place] Type B(6) Ab 09/11/22 09/10/22 Range/Units 18:08 07:49 WBC (4.8-10.8) K/ul RBC (4.70-6.10) M/uL Hgb (14.0-18.0) g/dl Hct (42.0-52.0) % MCV (80.0-100.0) fL MCH (25.0-34.0) pg MCHC (32.0-36.0) g/dL RDW Std Deviation (36.4-46.3) fL RDW Coeff of Leo (11.5-14.5) % Plt Count (130-400) K/uL MPV (9.4-12.4) fL Immature Gran % (Auto) % Neut % (Auto) % Lymph % (Auto) % [place] % (Auto) % Eos % (Auto) % Baso % (Auto) % Neut # (Auto) (1.40-6.50) K/uL Lymph # (Auto) (1.2-3.4) K/uL [place] # (Auto) (0.11-0.59) K/uL Eos # (Auto) (0-0.50) K/uL Baso # (Auto) (0-0.2) K/uL Immature Gran # (Auto) (0.01-0.20) K/uL Sodium (136-145) mmol/L Potassium (3.5-5.1) mmol/L Chloride (98-107) mmol/L Carbon Dioxide (21-32) mmol/L Anion Gap (3-11) BUN (6-23) mg/dl Creatinine (0.6-1.4) mg/dl Est Cr Clr Drug Dosing ml/min Est GFR ( Amer) ml/min Est GFR (Non-Af Amer) ml/min BUN/Creatinine Ratio (10-20) Glucose (70-99(Fasting)) mg/dl POC Glucose (70-99) mg/dl Calcium (8.5-10.1) mg/dl Phosphorus (2.5-4.9) mg/dl Magnesium (1.7-2.4) mg/dl Synovial Crystals [place] Type A(2) Ab Pending [place] Type A(4) Ab Pending [place] Type A(7) Ab Pending [place] Type A(9) Ab Pending [place] Type A(10) Ab Pending [place] Type A(16) Ab Pending [place] Type B(1) Ab Pending [place] Type B(2) Ab Pending [place] Type B(3) Ab Pending [place] Type B(4) Ab Pending [place] Type B(5) Ab Pending [place] Type B(6) Ab Pending Medications Administered Current Inpatient Medications Acetaminophen (Acetaminophen 325 Mg Tab) 650 mg PO Q4H PRN PRN Reason: Pain or Fever Stop: 10/08/22 15:42 Last Admin: 09/09/22 19:58 Dose: 650 mg Allopurinol (Allopurinol 100 Mg Tab) 200 mg PO DAILY [facility] Stop: 10/09/22 08:59 Last Admin: 09/13/22 08:27 Dose: 200 mg Aspirin (Aspirin 81 Mg Chew) 81 mg PO DAILY [facility] Stop: 10/09/22 08:59 Last Admin: 09/13/22 08:27 Dose: 81 mg Dextrose (Dextrose 50% 50 Ml Syringe) 25 - 50 ml IV UD PRN; Protocol PRN Reason: Hypoglycemia Protocol Stop: 10/08/22 15:42 Doxycycline Hyclate (Doxycycline Hyclate 100 Mg Cap) 100 mg PO BID [facility] Stop: 09/15/22 20:59 Ezetimibe (Ezetimibe 10 Mg Tablet) 10 mg PO QAM [facility] Stop: 10/09/22 08:59 Last Admin: 09/13/22 08:27 Dose: 10 mg Glucagon (Glucagon For Inj 1 Mg Vial) 1 mg SQ UD PRN; Protocol PRN Reason: Hypoglycemia Protocol Stop: 10/08/22 15:42 Glucose (Glucose 10 Tab/Tube) 4 - 8 tab PO UD PRN; Protocol PRN Reason: Hypoglycemia Treatment Stop: 10/08/22 15:42 Glucose (Glucose 40% Gel 15 Gm Tube) 15 - 30 gm PO UD PRN; Protocol PRN Reason: Hypoglycemia Protocol Stop: 10/08/22 15:42 Sodium Chloride (Nss 1000ml) 1,000 mls @ 80 mls/hr IV .[id number] [facility] Stop: 10/08/22 17:59 Last Infusion: 09/09/22 11:44 Dose: 0 mls/hr Doxycycline Hyclate 100 mg/ (Dextrose) 110 mls @ 50 mls/hr IV Q12H [facility]; Protocol Stop: 09/13/22 08:59 Last Infusion: 09/12/22 23:21 Dose: Infused Insulin Aspart (Insulin Aspart Per Unit) 0 units SC ACHS [facility] Stop: 10/08/22 16:29 Last Admin: 09/13/22 08:24 Dose: 5 units Insulin Glargine (Lantus Per Unit Charge) 17 units SQ DAILY [facility] Stop: 10/12/22 08:59 Last Admin: 09/13/22 08:28 Dose: 17 units Isosorbide Mononitrate (Isosorbide [place] Extended Rel 60 Mg Tabcr) 60 mg PO D AILY [facility] Stop: 10/09/22 08:59 Last Admin: 09/13/22 08:27 Dose: 60 mg Lisinopril (Lisinopril 5 Mg Tab) 5 mg PO QAM [facility] Stop: 10/09/22 08:59 Last Admin: 09/13/22 08:27 Dose: 5 mg Metoprolol Tartrate (Metoprolol Tartrate 50 Mg Tab) 50 mg PO BID [facility] Stop: 10/08/22 20:59 Last Admin: 09/13/22 08:27 Dose: 50 mg Miscellaneous (Carbohydrates For Hypoglycemia ) 15 - 30 gm PO UD PRN PRN Reason: Hypoglycemia Protocol Stop: 10/08/22 15:42 Last Admin: 09/08/22 16:19 Dose: 15 gm Miscellaneous Information (Pharmacy Glycemic Mgmt Consult) 1 each N/A UD PRN; Protocol PRN Reason: Consult Stop: 10/08/22 16:30 Ondansetron HCl (Ondansetron Inj 2 Mg/Ml 2 Ml Vial) 4 mg IV Q6H PRN PRN Reason: Nausea And Vomiting Stop: 10/08/22 17:34 Last Admin: 09/11/22 17:55 Dose: 4 mg Oxycodone HCl (Oxycodone Hcl Ir 5 Mg Tab (Immediate Release)) 5 mg PO Q6H PRN PRN Reason: Pain Stop: 09/23/22 08:58 Last Admin: 09/11/22 17:55 Dose: 5 mg Polyethylene Glycol (Polyethylene (Miralax) 17 Gm Pack) 17 gm PO DAILY PRN PRN Reason: Constipation Stop: 10/08/22 15:42 Rivaroxaban (Rivaroxaban 20 Mg Tab) 20 mg PO QDD [facility] Stop: 10/09/22 16:29 Last Admin: 09/12/22 17:31 Dose: 20 mg
[2022-09-13] MEDS: DOXYCYCLINE HYCLATE 100 MG CAP PO SCH ×2 (10:37→21:43)
[2022-09-13] MEDS: RIVAROXABAN 20 MG TAB PO SCH (17:06)
[2022-09-14] MEDS: INSULIN ASPART PER UNIT SC SCH (07:59)
[2022-09-14] MEDS: ASPIRIN 81 MG CHEW PO SCH (07:59)
[2022-09-14] MEDS: METOPROLOL TARTRATE 50 MG TAB PO SCH (07:59)
[2022-09-14] MEDS: DOXYCYCLINE HYCLATE 100 MG CAP PO SCH (07:59)
[2022-09-14 08:00] LABS: Hematocrit (blood only) 41.6 % (42.0-52.0); Hemoglobin 13.8 g/dl (14.0-18.0); Mean Corpuscular Hemoglobin 30.9 pg (25.0-34.0); Mean Corpuscular Hgb Conc 33.2 g/dL (32.0-36.0); Mean Corpuscular Volume 93.3 fL (80.0-100.0); Mean Platelet Volume 10.1 fL (9.4-12.4); Platelet Count 231 K/uL (130-400); RDW Coefficient of Variation 13.8 % (11.5-14.5); RDW Standard Deviation 47.1 fL (36.4-46.3); Red Blood Count 4.46 M/uL (4.70-6.10); White Blood Count 6.59 K/ul (4.8-10.8)
[2022-09-14] MEDS: ISOSORBIDE MONO EXTENDED REL 60 MG TABCR PO SCH (08:00)
[2022-09-14] MEDS: EZETIMIBE 10 MG TABLET PO SCH (08:00)
[2022-09-14] MEDS: allopurinoL 100 MG TAB PO SCH (08:00)
[2022-09-14] MEDS: lisinopril 5 MG TAB PO SCH (08:00)
[2022-09-14] MEDS: LANTUS PER UNIT CHARGE SQ SCH (08:01)
[2022-09-14 08:28] LABS: Calcium 9.4 mg/dl (8.5-10.1); Creatinine Clr Calc Pharmacy 52.6 ml/min; Est GFR (African American) 64.4 ml/min; Est GFR (Non-African American) 55.5 ml/min; Potassium 4.4 mmol/L (3.5-5.1)
--- NOTE | 2022-09-14 10:10 | Discharge Summary ---
Date of Service September 14, 2022 Admission HPI Per Admitting Provider Patient is 71-year-old male with PMH CAD, NSTEMI s/p CABG 08/19/2021, chronic stable angina, HTN, HLD, DM II, CKD III, MS, gout, multinodular goiter, polymyalgia rheumatica, h/o DVT on chronic anticoagulation with Xarelto presented to ER with c/o body aches and episode of CP today. Patient states this morning woke up with generalized weakness. Also woke up with diffuse arthralgias. Reports neck pain, bilateral shoulder, bilateral elbow, wrist, hand finger, hip, knee, ankle, foot pain today. Reports limited ROM of bilateral fingers secondary to pain and edema. Has chronic paraesthesias BLE thought secondary to diabetic neuropathy. Also reports generalized DORANTES today. States last night when watching TV and thought had some blurry vision. Has not noticed any visual disturbance today. Denies diplopia, vision loss. Approximately 7:30 AM had onset of sharp stabbing mid chest pain that was non-radiating and associated with lightheadedness and nausea. Denies vomiting. Patient reports a generalized shaking today. He is unaware of any fever. Denies any known recent tick bite, recent travel. Denies diaphoresis, V/D/C, syncope, SOB, orthopnea, palpitations, cough, sore throat, choking, otalgia, rhinorrhea, abdominal pain, rashes, urinary symptoms. Recent hospital admission 07/25/2022- 07/30/2022 for DKA, influenza A, type II NSTEMI in setting of demand ischemia. During admission was treated with IV hepar in transitioned to his home Xarelto and was discharged on isosorbide, increase lisinopril dose. Patient reports has had slow recovery since recent hospitalization and difficulty regaining his stamina. Reports earlier this week he felt like he was getting closer to his baseline and was able to walk to his mailbox approximately 100 feet. Reports had continued cough for couple of weeks past discharge but that has finally resolved. 07/25/2022 echo: Moderate concentric LVH, mild hypokinesis inferior and septal apex, grade 1 diastolic dysfunction 07/28/2022 echo: EF: 65-70%, moderate concentric LVH, no regional wall motion abnormalities Admission Exam Per Admitting Provider General: no distress, WDWN Head: normocephalic, atraumatic Eyes: PERRL, EOM's intact, conjunctiva non-injected, anicteric ENT: normal inspection external ears, nose, mucous membranes moist Neck: supple, trachea midline Lungs: clear, no respiratory distress, no wheezing/rhonchi/rales CV: RRR, no murmur, no JVD, no pretibial edema Abd: normal BS, soft, non-tender Ext: no cyanosis, no calf tenderness, +limited flexion and extension of bilateral fingers secondary to tenderness/stiffness. No erythema noted to joints but with +diffuse tenderness to palpation neck, bilateral shoulders, bilateral elbows, bilateral wrists, fingers, bilateral hips, bilateral knees and ankles and feet. Neuro: A&O x 3, no focal deficits noted, normal affect Skin: warm, dry Principal Diagnosis Fever, arthralgia, without infectious source identified - likely inflammatory arthritis Discharge Exam General: no distress, WDWN Head: normocephalic, atraumatic Eyes: PERRL, EOM's intact, conjunctiva non-injected, anicteric ENT: normal inspection external ears, nose, mucous membranes moist Neck: supple Lungs: clear, no respiratory distress, no wheezing/rhonchi/rales CV: RRR, no murmur, no JVD, no pretibial edema Abd: normal BS, soft, non-tender Ext: +limited flexion and extension of bilateral fingers secondary to tenderness/stiffness. No erythema noted to joints but with +diffuse tenderness to palpation, bilateral shoulders, bilateral elbows, bilateral wrists, fingers, bilateral hips, bilateral knees and ankles and feet. + mild edema of both hands and Left knee (no erythema over any joint noted), overall improved somewhat though Neuro: A&O x 3, no focal deficits noted, normal affect Skin: warm, dry Discharge Data Allergies Allergy/AdvReac Type Severity Reaction Status Date / Time morphine AdvReac Severe Vomiting Verified 07/25/22 00:16 rosuvastatin [From Crestor] AdvReac Intermediate Cramping Verified 07/25/22 00:16 of the Muscles Consultations 09/08/22 12:50 ED Decision to Admit Stat 09/08/22 15:43 Consult Cardiology Routine Consult Neurology Routine 09/10/22 17:41 Consult Orthopedic Surgery Routine 09/10/22 17:53 Consult Infectious Diseases Routine Ordered Studies 09/08/22 13:[address] [CT head/brain wo con] Stat FINDINGS: Brain parenchyma: There is age-related involutional change noting mild subcortical and periventricular microangiopathic disease. There is no hemorrhage, mass effect, or evidence of acute territorial ischemia by CT criteria. Sotelo-white matter differentiation is preserved. No extra-axial fluid collection is seen. Ventricles, sulci, cisterns: Prominent secondary to involutional change. Intracranial vasculature: There is atherosclerotic calcification of the ca vernous carotid and vertebral arteries. Calvarium: Unremarkable. Sinuses and mastoids: The paranasal sinuses are clear. The mastoid air cells are well pneumatized. Orbits: The bony orbits are grossly intact. IMPRESSION: There is no hemorrhage, mass effect, or evidence of acute territorial ischemia by CT criteria. Hospital Course (1) Arthralgia: (2) Generalized weakness: Patient is 71-year-old male with PMH CAD, NSTEMI s/p CABG 08/19/2021, chronic stable angina, HTN, HLD, DM II, CKD III, MS, gout, multinodular goiter, polymyalgia rheumatica, h/o DVT on chronic anticoagulation with Xarelto presented to ER with c/o onset diffuse bilateral arthralgias. Pt then also spiked fever and had rigors immediately after admission. DDX: sepsis/bacteremia, PMR, MS flare, GCA Negative Lyme Anaplasma pending ESR: 22 -> 62, CRP: < 0.5 ->11.8 on admission values unremarkable however now on repeat elevated Infectious work-up as below CT head: No acute findings Fall precautions Neurology consult Spoke with avionics manager, Dr Lock on phone on admission. Since inflammatory markers are relatively unremarkable recommends if blood cultures negative and no source of infection to start 10-20mg prednisone daily. this was however before pt spiked fever. 09/[address] Lock, rheumatology, this morning. Reviewed patient's hospital stay. Dr. Lock would recommend prednisone 5 mg daily, and close follow-up, next week with him in his clinic. Discussed this with the patient, will send prescription to his pharmacy, and patient will closely follow-up with his diabetes pharmacist, and PCP as well (as anticipate some blood glucose elevation w/ steroid as well). (3) Rigors: DDX: sepsis/bacteremia Rigors noted in ER. Afebrile in ER. Vital stable. Pt became febrile shortly after admission. Denies cough, vomiting, diarrhea, urinary symptoms WBC: 14. UA unremarkable. CXR: No infiltrate. Procalcitonin WNL. Negative SARS-CoV-2 PCR, negative influenza and RSV PCR Lactate: 2.3-->1.6 Blood cultures pending / so far negative In ER given Rocephin, 1L NSS Continue Rocephin, added doxycycline. If would have continued fevers may need to consider more broad spectrum antibiotics anaplasma pending Lyme negative repeated respiratory biofire -full panel (patient history of influenza during last admission recently, influenza negative in the ED, influenza equivocal results on repeat BioFire) Currently afebrile after starting Abx ID consulted , appreciate their input -Even though no infectious source identified at this time, okay to continue doxycycline for now, awaiting Anaplasma studies results. As patient is no longer febrile, okay to trial prednisone for possible rheumatologic issues. Discussed this with the patient, patient is somewhat hesitant about steroid use, as it makes his blood glucose level elevated and difficult to control. He will think about the next steps. 09/[address] Lock, rheumatology, this morning. Reviewed patient's hospital stay. Dr. Lock would recommend prednisone 5 mg daily, and close follow-up, next week with him in his clinic. Discussed this with the patient, will send prescription to his pharmacy, and patient will closely follow-up with his diabetes pharmacist, and PCP as well (as anticipate some blood glucose elevation w/ steroid as well). (4) Chest pain: (5) CAD (coronary artery disease): CAD, NSTEMI s/p CABG 08/19/2021, chronic stable angina Recent hospital admission 07/25/2022- 07/30/2022 for DKA, influenza A, type II NSTEMI in setting of demand ischemia. 07/25/2022 echo: Moderate concentric LVH, mild hypokinesis inferior and septal apex, grade 1 diastolic dysfunction 07/28/2022 echo: EF: 65-70%, moderate concentric LVH, no regional wall motion abnormalities Episode midsternal nonradiating chest pain with associated nausea, lightheadedness around 7:30 AM on day of admission Denies current chest pain or shortness of breath Initial high-sensitivity troponin: 8. EKG without acute ST elevation Trended troponin Continue aspirin, atorvastatin, isosorbide, metoprolol tartrate Cardiology consulted, and concern for possible pericarditis, limited echo ordered No recurrent chest pain, per cardiology no need to treat for possible pericarditis (6) DM type 2 (diabetes mellitus, type 2): A1c: 10.7 % on 07/25/2022 Hold home glycemic agents Basal bolus insulin per protocol (7) CKD (chronic kidney disease), stage III: Cr: 1.59. Baseline 1.4-1.6 per outpatient chart review current 1.2-1.3 Monitor renal functions, avoid nephrotoxic agents when possible (8) Hypertension: Stable Continue lisinopril, metoprolol tartrate (9) Deep vein thrombosis: History of DVT. Chronically anticoagulated on Xarelto Continue Xarelto (10) PMR (polymyalgia rheumatica): Follows with rheumatology, Dr. Lock 09/10 Pt Continues to have joint pain, hands are mildly edematous, left knee has mild edema, difficulty to move the joint. Tender and painful when moving. No erythema over any joints noted however. Family at the bedside, and reports that patient has been seen by orthopedics, also diagnosis of gout/pseudogout. Patient w/history of right knee replacement, and also shoulder surgery. L knee X-ray obtained - Soft tissue swelling and joint effusion with no acute bony abnormality identified. Left knee with mild edema and difficulty to move, painful, x-ray of left knee obtained as above - shows joint effusion - UOC consulted and joint was aspirated, fluid studies pending Uric acid obtained on admission, level 5.9. repeat uric acid - same. Patient is currently on allopurinol. ESR CRP unremarkable on admission, however quite elevated now. 09/13 - synovial fluid WBC 2186, no crystal noted in synovial fluid - No monosodium urate crystals (gout) or calcium pyrophosphate dihydrate crystals (pseudogout) identified. (11) Multiple sclerosis: Follows with neurology, Dr. Galloway Outpatient neurology note reviewed: Reported vague history of MS based on symptoms of fatigue, numbness in feet and abnormal MRI scans in the past. Patient has had clinically inactive symptoms throughout and had never received disease modifying therapy Neurology consulted given "vision changes" reported by the pt prior to admission. Symptoms resolved, and per neurology not likely MS flare. (12) Gout: Continue allopurinol Follows with Dr Chen for routine care, and Dr. Lock for rheumatology Total Time Total Time Spent Total Time Spent (In Minutes): 40 Discharge Plan Discharge Items Patient Disposition: Home - Home Health Services Reason For Visit: CP, MYALGIAS Discharge Diagnosis: Fever, arthralgia, without infectious source identified - likely inflammatory arthritis Activity: Per Instructions section Non-emergency contact: Primary Care Provider Call non-emergency contact if: you have any medication questions and your symptoms worsen Follow-up/Referrals: Nacho Chen MD [Primary Care Provider] - (Date & Time 09/18/2022 11:00 AM Provider Nacho Chen III, MD Department [facility] ) Diet: Carb Consistent or DM2 and Heart Healthy Addtl Attending Provider Instructions: Follow-up with your primary care physician. The appointment was scheduled for you for September 18. Also follow-up with Dr. Lock, your avionics manager. His office will be calling you to set up the appointment. Continue taking doxycycline for now, until all the results from your tests are back. Pending Studies at Discharge: Yes Studies:: anaplasma studies, coxsackie virus Stand-Alone Forms: My [facility], Smoking Cessation Medications and DC Order Prescriptions: New doxycycline hyclate 100 mg Capsule 100 mg PO BID 2 Days Qty: 4 0RF oxycodone 5 mg Tablet 5 mg PO Q6H PRN (Reason: pain) Qty: 7 0RF prednisone 5 mg tablet 5 mg PO DAILY Qty: 10 0RF Continued atorvastatin 80 mg tablet 80 mg PO QAM allopurinol 100 mg tablet 200 mg PO DAILY metoprolol tartrate 50 mg tablet 50 mg PO BID aspirin 81 mg Tablet,Chewable 81 mg PO DAILY metformin 500 mg tablet extended release 24 hr 1,000 mg PO QAM ezetimibe 10 mg tablet 10 mg PO QAM insulin glargine [Basaglar KwikPen U-100 Insulin] 100 unit/mL (3 mL) Insulin Pen 32 unit SUBCUT BID Rx Instructions: AM & BEFORE HS Xarelto 20 mg tablet 20 mg PO DAILY Jardiance 25 mg tablet 25 mg PO DAILY lisinopril 5 mg tablet 5 mg PO QAM 30 Days Qty: 30 0RF isosorbide mononitrate 60 mg tablet extended release 24 hr 60 mg PO DAILY Trulicity 0.75 mg/0.5 mL pen injector 0.75 mg SUBCUT WK Discharge Orders: Discharge Order (Routine); Ordered 09/14/22 Ordered By: Gabe Tilley/Other Patient Handouts: High Blood Sugar (Hyperglycemia), Hypoglycemia (Low Blood Sugar) Admission Data Admit Date/Time: 09/08/22 13:31 Attending Provider: Gabe Encarnacion Admit Provider: Gabe Encarnacion Primary Care Provider: Nacho Chen Other Providers: Gabe Encarnacion ; Waldemar Moraes ; Nacho Aleman ; Edwin Norton ; Kolton Ron ; Cass Hatfield ; Arthur Bermudez I. ; Denis Johnson II ; Zenobia Munguia ; Kelvin Curtis ; Kaveh Nicholson ; Tony Garner ; [facility]
[2022-09-18 12:13] LABS: Coxsackie A10 <1:8; Coxsackie A16 <1:8; Coxsackie A2 <1:8; Coxsackie A4 <1:8; Coxsackie A7 <1:8; Coxsackie A9 <1:8
== END 2022-09-14 11:01 | disposition home health service (06) | DRG 554 ==
LOC: ED 10:40 → 2W 13:31

== ENCOUNTER 2025-01-14 15:38 | Inpatient (IN) ==
[2025-01-14] MEDS: ASPIRIN CHEW 324 MG PO STA (16:06)
[2025-01-14] MEDS: NITROGLYCERIN SL 0.4 MG/TAB TAB SL PRN (16:07)
[2025-01-14] MEDS: SODIUM CHLORIDE 0.9% 1,000 ML IV SCH (16:07)
[2025-01-14 16:13] LABS: Basophils # (auto) 0.04 K/uL (0.00-0.20); Basophils % (auto) 0.5 %; Eosinophils # (auto) 0.43 K/uL (0.00-0.50); Eosinophils % (auto) 5.2 %; Hematocrit (blood only) 44.9 % (42.0-52.0); Hemoglobin 14.7 g/dl (14.0-18.0); Immature Granulocytes # (auto) 0.02 K/uL (0.01-0.20); Immature Granulocytes % (auto) 0.2 %; Lymphocytes # (auto) 1.66 K/uL (1.20-3.40); Mean Corpuscular Hgb Conc 32.7 g/dL (32.0-36.0); Mean Corpuscular Volume 97.6 fL (80.0-100.0); Mean Platelet Volume 10.6 fL (9.4-12.4); Monocytes # (auto) 0.63 K/uL (0.11-0.59); Monocytes % (auto) 7.6 %; Neutrophils # (auto) 5.51 K/uL (1.40-6.50); Neutrophils % (auto) 66.5 %; Platelet Count 216 K/uL (130-400); RDW Coefficient of Variation 15.9 % (11.5-14.5); RDW Standard Deviation 55.9 fL (36.4-46.3); White Blood Count 8.29 K/ul (4.8-10.8)
[2025-01-14 16:36] LABS: BUN Creatinine Ratio 12.3 (10-20); Calcium 9.3 mg/dl (8.6-10.3); Creatinine Clr Calc Pharmacy 34.8 ml/min; Potassium 4.5 mmol/L (3.5-5.1)
[2025-01-14 16:39] LABS: Partial Thromboplastin Time 27 Seconds (21-31); Prothrombin Time 10.9 Seconds (9.0-12.0)
[2025-01-14 16:42] LABS: Troponin I High Sensitivity 3.8 pg/ml (0-20)
--- NOTE | 2025-01-14 16:55 | XRay Report ---
Clinical History: Chest pain Technique: PA and lateral views of the chest were obtained Comparison is made to the prior examination dated 07/23/2024 Findings: There are no confluent pulmonary infiltrates. The heart size is within normal limits. No pleural effusion or pneumothorax is seen. There is no definite pulmonary nodule. No fracture is noted. Sternal wires are present. There is a suture anchor in the right humeral head Impression: No active disease Electronically signed by Jon Chow 01-14-2025 4:55 PM
--- NOTE | 2025-01-14 17:21 | Emergency Department Note ---
History of Present Illness General Chief Complaint: Chest Pain Stated Complaint: CHEST PAIN Time Seen by Provider: 01/14/25 15:54 History of Present Illness Provider Complaint: chest pain Onset (ago): week(s) Onset (Weeks): 1 Duration: intermittent Onset: during rest Pain Location: left chest Pain Radiation: LUE Severity: moderate Maximum Pain Intensity: 8 Current Pain Intensity: 8 Quality: + aching, + heaviness and + dull Relieved By: + nothing Exacerbated By: + nothing Context: no recent illness, no recent surgery, no recent travel, no trauma/injury or no history of DVT/PE Associated symptoms: + dyspnea; no nausea, no vomiting, no syncope, no palpitations, no fever or no cough Treatments prior to arrival: none Home Medications Medication Instructions Recorded Confirmed Type allopurinol 100 mg tablet 200 mg PO DAILY 07/25/22 07/23/24 History aspirin 81 mg chewable tablet 81 mg PO DAILY 07/25/22 07/23/24 History atorvastatin 80 mg tablet 80 mg PO QAM 07/25/22 07/23/24 History empagliflozin 25 mg tablet 25 mg PO DAILY 07/25/22 07/23/24 History (Jardiance) ezetimibe 10 mg tablet 10 mg PO QAM 07/25/22 07/23/24 History insulin glargine 100 unit/mL (3 38 unit subcut BID 07/25/22 07/23/24 History mL) subcutaneous pen (Basaglar KwikPen U-100 Insulin) metformin 500 mg tablet,extended 1,000 mg PO QAM 07/25/22 07/23/24 History release 24 hr metoprolol tartrate 50 mg tablet 50 mg PO BID 07/25/22 07/23/24 History rivaroxaban 20 mg tablet (Xarelto) 20 mg PO DAILY 07/25/22 07/23/24 History isosorbide mononitrate 60 mg 60 mg PO DAILY 09/08/22 07/23/24 History tablet,extended release 24 hr benzonatate 100 mg capsule 100 mg PO TID PRN cough #15 caps 07/23/24 Rx folic acid 1 mg tablet 1 mg PO QAM 07/23/24 07/23/24 History levalbuterol HCl 1.25 mg/3 mL 1.25 mg (3 mL) inhalation TID PRN 01/01/25 Rx solution for nebulization shortness of breath or wheezing #72 mL lisinopril 20 mg tablet 20 mg PO DAILY 07/23/24 07/23/24 History methotrexate sodium 25 mg/mL 25 mg IM WK 07/23/24 07/23/24 History injection solution semaglutide 1 mg/dose (4 mg/3 mL) 1 mg subcut WK 07/23/24 07/23/24 History subcutaneous pen injector (Ozempic) Allergies Allergy/AdvReac Type Severity Reaction Status Date / Time morphine AdvReac Severe Vomiting Verified 01/14/25 17:30 rosuvastatin [From Crestor] AdvReac Intermediate Cramping Verified 01/14/25 17:30 of the Muscles Past Med/Surg History Problem List Acute pain of left knee Chest pain (Acute) Elevated lactic acid level (Acute) Leukocytosis (Acute) Probable sepsis Generalized weakness Gout Multiple sclerosis follows w/ dr. 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; on coumadin; most recent - believes r/t surgeries (denies clotting disorder) Hypertension CKD (chronic kidney disease), stage III DM type 2 (diabetes mellitus, type 2) Chest pain Rigors Arthralgia Influenza A (Acute) DKA (diabetic ketoacidosis) (Acute) CKD (chronic kidney disease) (Acute) Elevated troponin (Acute) DKA (diabetic ketoacidosis) Encounter for pre-operative examination Acute urinary retention (Acute) Hematuria (Acute) Hypomagnesemia Hyperosmolar non-ketotic state in patient with type 2 diabetes mellitus TOMÁS (acute kidney injury) HHS (hypothenar hammer syndrome) (Acute) DVT prophylaxis Left foot pain Cellulitis of left lower extremity (Acute) Weakness (Acute) Hypertension, uncontrolled (Acute) Septic joint of right knee joint (Acute) Septic arthritis Pseudogout of right knee CAD (coronary artery disease) Prostate cancer screening BPH loc w urin obs/LUTS Kidney stone (Chronic) Hyperlipidemia (Chronic) GERD (gastroesophageal reflux disease) (Chronic) 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 Osteoarthritis BPH (benign prostatic hyperplasia) History of kidney stones GERD (gastroesophageal reflux disease) Thyroid nodule Diabetes mellitus, type 2 IDDM Chronic kidney disease Stage III. follows w/ dr. bowens Cataract Anxiety Hyperlipidemia Hypertension Multiple sclerosis Surgical History History of coronary artery bypass graft CABG X 5 ON 08/19/2021 ([id number], Ao-ramus-OM, Ao-PDA W/ rev SVG) History of repair of rotator cuff BL History of carpal tunnel release BL History of surgery LLE - hardware present History of arthroscopy of left knee History of knee joint replacement x 2 rt knee History of appendectomy History of tooth extraction History of cystoscopy Status post biopsy of thyroid gland benign History of cardiac cath 15 years ago - CP led to cath - [place] - no stents/angioplasty, ruled indigestion - does not follow w/ cardio Family History Daughter History of anesthesia reaction PONV Grandfather (Paternal) Family history of diabetes mellitus Mother Family history of diabetes mellitus Father Family history of diabetes mellitus Social History Smoking Status: Never smoker Tobacco Type: Smokeless Tobacco (Dip or Chew) Second Hand Exposure: No; Do You Dip or Chew Tobacco: Yes; Hx Alcohol Use: No Hx Substance Use: No Preferred Language: Ukrainian Communication Ability: Effective Regulatory Consultant Required: No Beliefs That Will Affect Care: None marital status: Current Living Situation: Spouse current occupational status: retired current occupation: Retired Feels Safe at Home: Yes Assistive Devices: Cane, Glasses, Walker and Wheelchair Physical Exam Vital Signs Vital Signs - 24 hr 01/14/25 15:40 01/14/25 15:48 01/14/25 15:57 Temperature 36.2 C L Temperature Source Temporal Artery Scan Pulse Rate 84 76 Pulse Rate [Apical] Pulse Rhythm Regular Pulse Rhythm [Apical] Respiratory Rate 20 Respiratory Effort / Characteristics Non-Labored Spontaneous Respiratory Depth Normal Respiratory Pattern Regular Blood Pressure 127/80 Blood Pressure [Left Arm] Blood Pressure Mean 95 Blood Pressure Mean [Left Arm] Blood Pressure Position [Left Arm] Pulse Oximetry 96 96 96 Oxygen Delivery Method Room Air Room Air Room Air Sepsis Recent Fever Within 48 Hours No Sepsis New/Unexplained Change in Mental Status N/A Sepsis Action Taken by Nursing No Action Required 01/14/25 16:00 01/14/25 16:12 01/14/25 16:19 Temperature Temperature Source Pulse Rate 82 Pulse Rate [Apical] 82 Pulse Rhythm Pulse Rhythm [Apical] Regular Respiratory Rate 17 Respiratory Effort / Characteristics Non-Labored Spontaneous Respiratory Depth Normal Respiratory Pattern Regular Blood Pressure Blood Pressure [Left Arm] 145/86 H 146/84 H Blood Pressure Mean Blood Pressure Mean [Left Arm] 105 104 Blood Pressure Position [Left Arm] Lying Pulse Oximetry 96 Oxygen Delivery Method Room Air Sepsis Recent Fever Within 48 Hours Sepsis New/Unexplained Change in Mental Status Sepsis Action Taken by Nursing Physical Exam GENERAL: oriented to person, place, and time. appears well-developed and well- nourished. HENT: Exam performed. - Head: Normocephalic and atraumatic. EYES: Conjunctivae and EOM are normal. Right eye exhibits no discharge. Left eye exhibits no discharge. No scleral icterus. NECK: Normal range of motion. Neck supple. No JVD present. CV: Normal rate, regular rhythm, normal heart sounds and intact distal pulses. There is no peripheral edema. Palpable radial pulses bue. PULM/CHEST: Effort normal and breath sounds normal. No respiratory distress. No stridor. no wheezes. no rales. ABD: The abdomen is soft. There is no tenderness. NEURO: Motor and sensation grossly intact. SKIN: Skin is warm and dry. He is not diaphoretic. PSYCH: normal mood and affect. Behavior is normal. Judgment and thought content normal. Course Course 155: The patient was evaluated in room A2. A complete history and physical exam was performed Cardiac monitoring: An order was placed for continuous cardiac monitoring. The monitor shows a rate of 80 with sinus rhythm interpreted by sc 1657: Vital signs stable. Labs show normal high-sensitivity troponin. EKG and chest x-ray unremarkable. Labs are significant for a mild TOMÁS with a creatinine of 1.79. Baseline creatinine is 1.4. Patient reports his chest pain is resolved status post aspirin and sublingual nitroglycerin. Patient be admitted to the [facility] hospitalist team. Administered Medications Sodium Chloride (Nss) 1,000 mls @ 125 mls/hr IV .Q8H JOYCE Stop: 01/17/25 16:14 Last Admin: 01/14/25 16:07 Dose: 125 mls/hr Documented By: RAYMOND Nitroglycerin (Nitroglycerin Sl 0.4 Mg/Tab Tab) 0.4 mg SL Q5M PRN PRN Reason: Chest Pain Stop: 02/13/25 16:01 Last Admin: 01/14/25 16:07 Dose: 0.4 mg Documented By: RAYMOND Discontinued Medications Aspirin (Aspirin Chew 324 Mg) 324 mg PO NOW STA Stop: 01/14/25 16:03 Last Admin: 01/14/25 16:06 Dose: 324 mg Documented By: RAYMOND Medical Decision Making Laboratory Data Attestation: I reviewed the patient's lab results. 01/14/25 15:54 01/14/25 15:54 Labs: Lab Results 01/14/25 Range/Units 15:54 WBC 8.29 (4.8-10.8) K/ul RBC 4.60 L (4.70-6.10) M/uL Hgb 14.7 (14.0-18.0) g/dl Hct 44.9 (42.0-52.0) % MCV 97.6 (80.0-100.0) fL MCH 32.0 (25.0-34.0) pg MCHC 32.7 (32.0-36.0) g/dL RDW Std Deviation 55.9 H (36.4-46.3) fL RDW Coeff of Leo 15.9 H (11.5-14.5) % Plt Count 216 (130-400) K/uL MPV 10.6 (9.4-12.4) fL Immature Gran % (Auto) 0.2 % Neut % (Auto) 66.5 % Lymph % (Auto) 20.0 % Ness % (Auto) 7.6 % Eos % (Auto) 5.2 % Baso % (Auto) 0.5 % Neut # (Auto) 5.51 (1.40-6.50) K/uL Lymph # (Auto) 1.66 (1.20-3.40) K/uL Ness # (Auto) 0.63 H (0.11-0.59) K/uL Eos # (Auto) 0.43 (0.00-0.50) K/uL Baso # (Auto) 0.04 (0.00-0.20) K/uL Immature Gran # (Auto) 0.02 (0.01-0.20) K/uL PT 10.9 (9.0-12.0) Seconds INR 1.0 (0.9-1.1) APTT 27 (21-31) Seconds PTT Ratio 1.0 Sodium 140 (136-145) mmol/L Potassium 4.5 (3.5-5.1) mmol/L Chloride 109 H (98-107) mmol/L Carbon Dioxide 24 (21-32) mmol/L Anion Gap 7 (3-11) BUN 22 (6-23) mg/dl Creatinine 1.79 H (0.6-1.4) mg/dl Est Cr Clr Drug Dosing 34.8 ml/min eGFR 39.03 BUN/Creatinine Ratio 12.3 (10-20) Glucose 174 H (70-99(Fasting)) mg/dl Calcium 9.3 (8.6-10.3) mg/dl Troponin I High Sens 3.8 (0-20) pg/ml Lipase 31 (11-82) U/L Imaging Data Chest x-ray: Attestation: I personally reviewed and interpreted this imaging study as follows: My impression: Chest x-ray negative. Airway clear. No pneumothorax. No consolidation. No cardiomegaly or cephalization.. No free air under the diaphragm. No fractures of the skeletal structures. Radiologist's impression: Chest X-Ray 01/14/25 15:55 Clinical History: Chest pain Technique: PA and lateral views of the chest were obtained Comparison is made to the prior examination dated 07/23/2024 Findings: There are no confluent pulmonary infiltrates. The heart size is within normal limits. No pleural effusion or pneumothorax is seen. There is no definite pulmonary nodule. No fracture is noted. Sternal wires are present. There is a suture anchor in the right humeral head Impression: No active disease Electronically signed by Jon Chow 01-14-2025 4:55 PM ECG Data Attestation: I personally reviewed and interpreted this ECG as follows: Indication: chest pain Rate (beats per minute): 81 Rhythm: normal sinus Findings: + 1st degree AV block; no ST depression, no ST elevation or no prolonged QT [facility] Narrative 1554: The patient was evaluated in room A2. A complete history and physical exam was performed Cardiac monitoring: An order was placed for continuous cardiac monitoring. The monitor shows a rate of 80 with sinus rhythm interpreted by me 1657: Vital signs stable. Labs show normal high-sensitivity troponin. EKG and chest x-ray unremarkable. Labs are significant for a mild TOMÁS with a creatinine of 1.79. Baseline creatinine is 1.4. Patient reports his chest pain is resolved status post aspirin and sublingual nitroglycerin. Patient be admitted to the [facility] hospitalist team. Impression & Plan Chest pain Discharge Plan Visit Data Chief Complaint: Chest Pain Stated Complaint: CHEST PAIN ED Provider: Jose Palomino Discharge Problem: Chest pain Patient Disposition: Being Evaluated by Hospitalist Condition: Good Forms Stand Alone Forms: [facility] Prescriptions Prescriptions: No Action atorvastatin 80 mg tablet 80 mg PO QAM allopurinol 100 mg tablet 200 mg PO DAILY metoprolol tartrate 50 mg tablet 50 mg PO BID aspirin 81 mg Tablet,Chewable 81 mg PO DAILY metformin 500 mg tablet extended release 24 hr 1,000 mg PO QAM ezetimibe 10 mg tablet 10 mg PO QAM insulin glargine [Basaglar KwikPen U-100 Insulin] 100 unit/mL (3 mL) Insulin Pen 38 unit SUBCUT BID Rx Instructions: AM & BEFORE HS Xarelto 20 mg tablet 20 mg PO DAILY Jardiance 25 mg tablet 25 mg PO DAILY isosorbide mononitrate 60 mg tablet extended release 24 hr 60 mg PO DAILY lisinopril 20 mg tablet 20 mg PO DAILY methotrexate sodium 25 mg/mL solution 25 mg IM WK Rx Instructions: THURSDAYS folic acid 1 mg tablet 1 mg PO QAM Ozempic 1 mg/dose (4 mg/3 mL) pen injector 1 mg SUBCUT WK benzonatate 100 mg capsule 100 mg PO TID PRN (Reason: cough) Qty: 15 0RF levalbuterol HCl 1.25 mg/3 mL solution for nebulization 1.25 mg inhalation TID PRN (Reason: shortness of breath or wheezing) Qty: 72 0RF Referrals Referrals: Nacho Chen MD [Primary Care Provider] - Discharge Problem: Chest pain Qualifiers: Chest pain type: unspecified Qualified Code(s): R07.9 - Chest pain, unspecified
--- NOTE | 2025-01-14 17:32 | History & Physical Report ---
Date of Service January 14, 2025 Assessment & Plan (1) Chest pain: Plan Syncope Fall Rule out arrhythmia Chest pressure Patient comes in with syncope/fall 3 times in the last 2 to 3 weeks associated with chest pain and lightheadedness. Patient today has chest pressure radiating to left arm. received nitro sl and aspirin loading dose w/ some improvment. Admitting EKG with no acute ST or T changes, admitting troponin WNL. Will get echo, trend troponin, telemonitoring, orthostatic vitals, CT head given patient is on Xarelto. Will hold Xarelto and put him on heparin drip in case active ACS /need for cardiac cath. Cardiology consult Nitro as needed. Continue home aspirin. Continue other cardiac medications. Other chronic medical conditions: CAD, T2DM, CKD, HTN, DVT, PMR: Continue/resume home meds as and when able. Patient on heparin drip instead of Xarelto, see above. Sliding scale insulin while in hospital. Follows Dr. Lock for PMR. Cr slightly above his baseline but donot qualify for tomás/ckd. Daily prophylaxis: Patient on heparin drip DNR/DNI History of Present Illness Chief Complaint: chest pressure, syncope Primary Care Provider: Nacho Chen MD 71-year-old male with PMH of CAD, NSTEMI s/p CABG 08/19/2021, chronic stable angina, HTN, HLD, DM II, CKD III, MS, gout, multinodular goiter, polymyalgia rheumatica, DVT on chronic anticoagulation with Xarelto presented to ER with c/o chest pain. Patient reports he has been feeling weak since about 2 to 3 weeks, he had briefly passed out 3 times in about the same duration, each time associated with lightheadedness/chest pain. He denies hitting head. Today while he was resting, he started having left chest pressure radiating to left arm. And decided to come to the ED. Patient denies sore throat/cough/fever/belly pain/nausea/vomiting. Reports appetite has been on the lower side since about 2 to 3 weeks. Denies pain or burning with passing urine or any acute changes with bowel habits. Patient denies any febrile or flulike illness. Patient denies smoking/alcohol/drug use. Medications reviewed with the patient and his at bedside. He takes Ozempic weekly, Lantus, folic acid, Jardiance 30 mg daily, metformin 1 g daily, metho trexate injection weekly, atorvastatin 80 mg daily, Xarelto 20 mg daily, ezetimibe 10 mg daily, aspirin 81 mg daily, allopurinol 200 Mg daily, lisinopril 20 Mg daily, metoprolol tartrate 50 Mg twice daily. DNR/DNI as per my discussion with the patient. Plan of care discussed with the patient and his at bedside, they voiced understanding. 07/25/2022 echo: Moderate concentric LVH, mild hypokinesis inferior and septal apex, grade 1 diastolic dysfunction 07/28/2022 echo: EF: 65-70%, moderate concentric LVH, no regional wall motion abnormalities Allergies Allergy/AdvReac Type Severity Reaction Status Date / Time morphine AdvReac Severe Vomiting Verified 01/14/25 17:30 rosuvastatin [From Crestor] AdvReac Intermediate Cramping Verified 01/14/25 17:30 of the Muscles Home Medications Medication Instructions Recorded Confirmed Type allopurinol 100 mg tablet 200 mg PO QAM 07/25/22 01/14/25 History aspirin 81 mg chewable tablet 81 mg PO QAM 07/25/22 01/14/25 History atorvastatin 80 mg tablet 80 mg PO QAM 07/25/22 01/14/25 History empagliflozin 25 mg tablet 25 mg PO QAM 07/25/22 01/14/25 History (Jardiance) ezetimibe 10 mg tablet 10 mg PO QAM 07/25/22 01/14/25 History insulin glargine 100 unit/mL (3 38 unit subcut [facility] 07/25/22 01/14/25 History mL) subcutaneous pen (Basaglar KwikPen U-100 Insulin) metformin 500 mg tablet,extended 1,000 mg PO QAM 07/25/22 01/14/25 History release 24 hr metoprolol tartrate 50 mg tablet 50 mg PO AMHS 07/25/22 01/14/25 History rivaroxaban 20 mg tablet (Xarelto) 20 mg PO DAILY 07/25/22 01/14/25 History isosorbide mononitrate 60 mg 60 mg PO QAM 09/08/22 01/14/25 History tablet,extended release 24 hr folic acid 1 mg tablet 1 mg PO QAM 07/23/24 01/14/25 History lisinopril 20 mg tablet 20 mg PO QAM 07/23/24 01/14/25 History semaglutide 1 mg/dose (4 mg/3 mL) 1 mg subcut WK 07/23/24 01/14/25 History subcutaneous pen injector (Ozempic) methotrexate sodium 25 mg/mL 20 mg subcut WK 01/14/25 01/14/25 History injection solution Past Med/Surg History Problem List Acute pain of left knee Chest pain (Acute) Elevated lactic acid level (Acute) Leukocytosis (Acute) Probable sepsis Generalized weakness Gout Multiple sclerosis follows w/ dr. 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; on coumadin; most recent - believes r/t surgeries (denies clotting disorder) Hypertension CKD (chronic kidney disease), stage III DM type 2 (diabetes mellitus, type 2) Chest pain Rigors Arthralgia Influenza A (Acute) DKA (diabetic ketoacidosis) (Acute) CKD (chronic kidney disease) (Acute) Elevated troponin (Acute) DKA (diabetic ketoacidosis) Encounter for pre-operative examination Acute urinary retention (Acute) Hematuria (Acute) Hypomagnesemia Hyperosmolar non-ketotic state in patient with type 2 diabetes mellitus TOMÁS (acute kidney injury) HHS (hypothenar hammer syndrome) (Acute) DVT prophylaxis Left foot pain Cellulitis of left lower extremity (Acute) Weakness (Acute) Hypertension, uncontrolled (Acute) Septic joint of right knee joint (Acute) Septic arthritis Pseudogout of right knee CAD (coronary artery disease) Prostate cancer screening BPH loc w urin obs/LUTS Kidney stone (Chronic) Hyperlipidemia (Chronic) GERD (gastroesophageal reflux disease) (Chronic) 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 Osteoarthritis BPH (benign prostatic hyperplasia) History of kidney stones GERD (gastroesophageal reflux disease) Thyroid nodule Diabetes mellitus, type 2 IDDM Chronic kidney disease Stage III. follows w/ dr. bowens Cataract Anxiety Hyperlipidemia Hypertension Multiple sclerosis Surgical History History of coronary artery bypass graft CABG X 5 ON 08/19/2021 ([id number], Ao-ramus-OM, Ao-PDA W/ rev SVG) History of repair of rotator cuff BL History of carpal tunnel release BL History of surgery LLE - hardware present History of arthroscopy of left knee History of knee joint replacement x 2 rt knee History of appendectomy History of tooth extraction History of cystoscopy Status post biopsy of thyroid gland benign History of cardiac cath 15 years ago - CP led to cath - [place] - no stents/angioplasty, ruled indigestion - does not follow w/ cardio Family History Daughter History of anesthesia reaction PONV Grandfather (Paternal) Family history of diabetes mellitus Mother Family history of diabetes mellitus Father Family history of diabetes mellitus Social History Smoking Status: Never smoker Tobacco Type: Smokeless Tobacco (Dip or Chew) Second Hand Exposure: No; Do You Dip or Chew Tobacco: Yes; Hx Alcohol Use: No Hx Substance Use: No Preferred Language: Icelandic Communication Ability: Effective Prestidigitator Required: No Beliefs That Will Affect Care: None marital status: Current Living Situation: Spouse current occupational status: retired current occupation: Retired Feels Safe at Home: Yes Assistive Devices: Cane, Glasses, Walker and Wheelchair Review of Systems Review of Systems: Negative otherwise mentioned in HPI. Physical Exam Physical Exam: GENERAL: Alert and oriented x3. NAD, on RA. HEENT: No pallor, no icterus. Pupils equal, round and reactive to light. Oral mucosa moist. NECK: No JVD, no neck masses. Mid sternotomy scar, old/healed. HEART: S1 and S2 heard. Regular rate and rhythm. No murmur, no gallop. RESPIRATORY SYSTEM: Normal AP diameter. No accessory muscle use. No wheezing, no crackles. ABDOMEN: Soft, bowel sounds present, nontender, no distention. CENTRAL NERVOUS SYSTEM: No facial droop. Speech is clear. Obeys simple commands. Moves extremities. EXTREMITIES: No edema, no erythema seen. Results & Data Results & Data Vital Signs (Past 12 Hours) Vital Signs Temp Pulse Pulse Resp BP BP Pulse Ox 01/14/25 16:19 146/84 H 01/14/25 16:12 82 01/14/25 16:00 82 17 145/86 H 96 01/14/25 15:57 76 96 01/14/25 15:48 96 01/14/25 15:40 36.2 C L 84 20 127/80 96 O2 Del Method 01/14/25 16:19 01/14/25 16:12 01/14/25 16:00 Room Air 01/14/25 15:57 Room Air 01/14/25 15:48 Room Air 01/14/25 15:40 Room Air (1) Chest pain Chest pain type: unspecified Qualified Code(s): R07.9 - Chest pain, unspecified
[2025-01-14] MEDS ORDERED: MAGNESIUM HYDROXIDE SUSP 30 ML UDC PO PRN (17:34)
[2025-01-14] MEDS ORDERED: ACETAMINOPHEN 325 MG TAB PO PRN (17:34)
[2025-01-14] MEDS ORDERED: GLUCOSE 10 TAB/TUBE PO PRN (17:34)
[2025-01-14] MEDS ORDERED: CARBOHYDRATES FOR HYPOGLYCEMIA PO PRN (17:34)
[2025-01-14] MEDS ORDERED: GLUCOSE 40% GEL 15 GM TUBE PO PRN (17:34)
[2025-01-14] MEDS ORDERED: PHARMACY GLYCEMIC MGMT CONSULT PRN (17:34)
[2025-01-14] MEDS ORDERED: ALUMINUM/MAGNESIUM SUSP 30 ML UDC PO PRN (17:34)
[2025-01-14] MEDS ORDERED: ONDANSETRON INJ 2 MG/ML 2 ML VIAL IV PRN (17:34)
[2025-01-14] MEDS ORDERED: GLUCAGON FOR INJ 1 MG VIAL SQ PRN (17:34)
[2025-01-14] MEDS ORDERED: Heparin IV Adult Wt-Based Low-Dose *NO* INITIAL Bolus Protocol IV STA (17:37)
[2025-01-14] MEDS: HEPARIN 25000 UNIT/500 ML D5W 25,000 UNITS/500 ML BAG IV SCH (18:00)
[2025-01-14] MEDS: INSULIN ASPART PER UNIT CHARGE SC SCH (20:41)
[2025-01-14] MEDS: LANTUS PER UNIT CHARGE SQ SCH (20:45)
[2025-01-14] MEDS: METOPROLOL TARTRATE 50 MG TAB PO SCH (20:47)
--- NOTE | 2025-01-14 21:26 | CT Scan Report ---
CT of the head without contrast Technique: Noncontrast axial images of the head. Coronal and sagittal reformatted images made available for review Comparison made to prior exam dated 09/08/2022 Findings: No acute intracranial hemorrhage. No acute transcortical infarct. No midline shift. Ventricles, sulci, cisterns within normal limits. Bone windows demonstrate no focal abnormality Impression Head CT negative for acute intracranial abnormality. Electronically signed by Vinicio Cr 01-14-2025 9:25 PM
--- NOTE | 2025-01-14 23:36 | Communication Note ---
Date of Service: January 14, 2025 Made aware by RN of uncontrolled blood pressure. SBP 1 40-1 80s since afternoon. Heart rate 60s to 80s Patient asymptomatic as per RN. AP Hypertensive urgency Add amlodipine to regimen Will relay to AM provider.
[2025-01-15] MEDS: amLODIPine BESYLATE 5 MG TAB PO SCH ×2 (00:17→20:50)
[2025-01-15] MEDS: INSULIN ASPART PER UNIT CHARGE SC SCH ×2 (00:37→18:40)
[2025-01-15 01:20] LABS: ANTI-Xa, UFH(UnfractionatedHep 0.48 IU/ml (0.3-0.7)
[2025-01-15 06:27] LABS: Hematocrit (blood only) 42.5 % (42.0-52.0); Hemoglobin 13.9 g/dl (14.0-18.0); Mean Corpuscular Hgb Conc 32.7 g/dL (32.0-36.0); Mean Corpuscular Volume 97.9 fL (80.0-100.0); Mean Platelet Volume 10.7 fL (9.4-12.4); Platelet Count 188 K/uL (130-400); RDW Coefficient of Variation 15.6 % (11.5-14.5); RDW Standard Deviation 55.6 fL (36.4-46.3); Red Blood Count 4.34 M/uL (4.70-6.10); White Blood Count 6.92 K/ul (4.8-10.8)
[2025-01-15] MEDS: DEXTROSE 50% 50 ML SYRINGE IV PRN (06:32)
[2025-01-15] MEDS ORDERED: hydrOXYzine HCl 10 MG TAB PO PRN (06:38)
[2025-01-15 06:41] LABS: BUN Creatinine Ratio 14.8 (10-20); Calcium 8.7 mg/dl (8.6-10.3); Creatinine Clr Calc Pharmacy 46.2 ml/min; Magnesium 1.5 mg/dl (1.7-2.4); Potassium 4.1 mmol/L (3.5-5.1)
[2025-01-15] MEDS: amLODIPine BESYLATE 5 MG TAB PO ONE (06:47)
[2025-01-15] MEDS: oxyCODONE HCL IR 5 MG TAB (IMMEDIATE RELEASE) PO STA (06:50)
[2025-01-15 06:54] LABS: ANTI-Xa, UFH(UnfractionatedHep 0.35 IU/ml (0.3-0.7)
[2025-01-15 07:21] LABS: Estimated Average Glucose 194 mg/dl; Hemoglobin A1C 8.4 % (4.5-5.6)
[2025-01-15] MEDS: EZETIMIBE 10 MG TAB PO SCH (08:11)
[2025-01-15] MEDS: ASPIRIN 81 MG CHEW PO SCH (08:11)
[2025-01-15] MEDS: ISOSORBIDE MONO EXTENDED REL 60 MG TABCR PO SCH (08:11)
[2025-01-15] MEDS: lisinopril 20 MG TAB PO SCH (08:11)
[2025-01-15] MEDS: ATORVASTATIN 40 MG TAB PO SCH (08:12)
[2025-01-15] MEDS: allopurinoL 100 MG TAB PO SCH (08:12)
--- NOTE | 2025-01-15 09:02 | Cardiology Consultation ---
Date of Consultation January 15, 2025 Assessment & Plan (1) Chest pain: (2) CAD (coronary artery disease): Plan Assessment: 74 year old male with with extensive cardiac history including 5 vessel CABG in 2021 that presented to the ER with 3 weeks of chest pressure, a nd now associated syncopal episode. Cardiology consulted for further assessment and recommendations Plan: Chest pin CAD -patient with extensive history of CAD with prior CABG x5 vessels in 2021. -Compliant on all medication therapies including Aspirin, Atorvastatin, metoprolol tartrate, Lisinopril, Indur, and jardiance. -patient is on chronic anticoagulation due to a history of an unprovoked DVT in past. This was placed on hold 01/15/24 in lieu of need for potential cardiac work up. Heparin gtt was started. -Concerning symptoms suggestive of angina, and similar to his event prior to needing CABG. -Troponin negative. -Echocardiogram shows preserved LVEF with no new wall motion abnormality. -discussed case in detail with Dr. Sierra and recommendations to proceed with cardiac cath. Due to complexity of patient's coronary disease would recommend tertiary center. Further recommendations as outlined by Dr. Sierra -Continue heparin gtt. may have a heart healthy diet at this time. Case has been discussed with Dr. Sierra. Further recommendations regarding plan of care as per his assessment. I spent a total of 40 minutes on the date of service in preparation, delivery, documentation of the care provided to the patient excluding any time spent in the performance of separately billed services. ANILA Pierre [facility] Cardiology [facility] Supervising Physician Co-Signing Physician Notes I have personally performed a history and physical examination on the patient. I have reviewed the advance practitioner's documentation, and I agree with, and take responsibility for the plan of care. 74-year-old male admitted with unstable angina and syncope. History of multivessel coronary disease status post coronary artery bypass grafting. Chronically anticoagulated due to history of unprovoked DVT. Chest discomfort described as pressure as well as sharp and stabbing pain. Symptoms are somewhat atypical, however, similar to angina prior to diagnosis of coronary disease and bypass surgery in 2021. Reports significant episode of chest discomfort associated with syncope prior to admission. Echocardiogram reveals preserved LV systolic function. Troponins are not significantly elevated. Xarelto placed on hold and treated with IV heparin overnight. Reports an episode of chest pressure in the ED which was improved with sublingual nitroglycerin. Treated with cardiovascular medications as noted above. Asymptomatic second-degree AV block Mobitz type I noted on telemetry overnight. Further ischemic evaluation is warranted. Patient agreeable to cardiac catheterization with coronary angiography and bypass graft angiography. He will be transferred to [facility] in [place] for procedure. Accepted by Dr. Soares. Xarelto will remain on hold. Will allow the patient to eat today. NPO after midnight in anticipation of cardiac catheterization tomorrow 01/16/2025. Continue current medications. Isra Sierra DO, [facility] I spent a total of 40 minutes on the date of service in preparation, delivery, and documentation of the care provided to this patient, excluding any time spent in the performance of separately billed services. History of Present Illness Reason for Consultation: "chest pain, ? arrhythmia/syncope, extensive heart disease history" Requesting Physician: [facility] hospitalist Attending Physician: Oscar Brooks MD History of Present Illness HPI: Patient is a 74 year old male with complex cardiac history as noted below that presented to the ER on 01/14/25 with complaints of chest pain described as a pressure for approx 3 weeks. He states the pressure was initially intermittent, now more persistent, does not get worse with exertion. He has also started having intermittent brief "stabbing chest pain" described as both mid-sternal and left anterior region with no aggravating or alleviating factors. 2 days prior to his admission, he states that he was outside of his camper doing some light painting when he developed worsening chest pressure, became dizzy, l ightheaded and had some visual disturbances feeling as though things were looking foggy. He stopped and went inside his camper which was air conditioned attributing it to the extreme heat. He proceeded to go back outside to grab a cold juice from the cooler, became more lightheaded and knew he was about to pass out attempting to sit in a lawn chair. The next thing he remembered was his yelling in his face. Denies any confusion, loss of bowel or bladder function and no witnessed seizure like activity. Pain had remained constant. He is unsure of the amount of time he was unconscious, but told us his felt it was quick. On day of admission, patient reported that he had pain radiating down his left arm in addition to all of the above chest pressure/pain symptoms, he was given one SL NTG and an ASA 81mg (4 tabs) with some improvement in the ER. Past medical history: 1. Multivessel CAD a. Proximal LAD 80-90% stenosis, Ramus 70-80% stenosis in its midportion, Left circumflex the 5% narrowing in its proximal 1/3, RCA moderate irregularities in the proximal mid RCA, PDA 90% stenosis in its distal portion, per cardiac catheterization 08/18/2021 at [facility] with Dr. Dimitry mcelroy S/p CABG x 5 ([id number], Ao-ramus-OM, Ao-PDA with reversed saphenous vein), [place] [facility] 2. Hypertension 3. Hyperlipidemia 4. Type 2 diabetes with polyneuropathy, retinopathy, and nephropathy, stage IIIB 5. Recurrent DVT on chronic anticoagulation- Xarelto 6. Multiple sclerosis 7. MGUS 8. CKD Last seen in our office 08/28/2023 by ANILA Cordova. Primary Superintendent Job is Dr. Moraes. EKG on admission SR with 1st degree AV block, prior septal infarct Rate 81bpm. Repeat EKG today unchanged. Echocardiogram today. High sensitivity troponin negative x 3 Patient is resting in bed at time of exam, son at bedside. He continues with chest pressure at this time. Heparin gtt has been started. Xarelto was placed on hold yesterday. No palpitations, no shortness of breath, no feelings of near syncope or syncope at this time. No edema. Review of telemetry shows SR with a 1st degree AVB, there is notation of intermittent Mobitz I. Rates in the 60's. Allergies Allergy/AdvReac Type Severity Reaction Status Date / Time morphine AdvReac Severe Vomiting Verified 01/14/25 17:30 rosuvastatin [From Crestor] AdvReac Intermediate Cramping Verified 01/14/25 17:30 of the Muscles Home Medications Medication Instructions Recorded Confirmed Type allopurinol 100 mg tablet 200 mg PO QAM 07/25/22 01/14/25 History aspirin 81 mg chewable tablet 81 mg PO QAM 07/25/22 01/14/25 History atorvastatin 80 mg tablet 80 mg PO QAM 07/25/22 01/14/25 History empagliflozin 25 mg tablet 25 mg PO QAM 07/25/22 01/14/25 History (Jardiance) ezetimibe 10 mg tablet 10 mg PO QAM 07/25/22 01/14/25 History insulin glargine 100 unit/mL (3 38 unit subcut AMHS 07/25/22 01/14/25 History mL) subcutaneous pen (Basaglar KwikPen U-100 Insulin) metformin 500 mg tablet,extended 1,000 mg PO QAM 07/25/22 01/14/25 History release 24 hr metoprolol tartrate 50 mg tablet 50 mg PO AMHS 07/25/22 01/14/25 History rivaroxaban 20 mg tablet (Xarelto) 20 mg PO DAILY 07/25/22 01/14/25 History isosorbide mononitrate 60 mg 60 mg PO QAM 09/08/22 01/14/25 History tablet,extended release 24 hr folic acid 1 mg tablet 1 mg PO QAM 07/23/24 01/14/25 History lisinopril 20 mg tablet 20 mg PO QAM 07/23/24 01/14/25 History semaglutide 1 mg/dose (4 mg/3 mL) 1 mg subcut WK 07/23/24 01/14/25 History subcutaneous pen injector (Ozempic) methotrexate sodium 25 mg/mL 20 mg subcut WK 01/14/25 01/14/25 History injection solution Patient History Medical History 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 Osteoarthritis BPH (benign prostatic hyperplasia) History of kidney stones GERD (gastroesophageal reflux disease) Thyroid nodule Diabetes mellitus, type 2 IDDM Chronic kidney disease Stage III. follows w/ dr. bowens Cataract Anxiety Hyperlipidemia Hypertension Multiple sclerosis Surgical History History of coronary artery bypass graft CABG X 5 ON 08/19/2021 ([id number], Ao-ramus-OM, Ao-PDA W/ rev SVG) History of repair of rotator cuff BL History of carpal tunnel release BL History of surgery LLE - hardware present History of arthroscopy of left knee History of knee joint replacement x 2 rt knee History of appendectomy History of tooth extraction History of cystoscopy Status post biopsy of thyroid gland benign History of cardiac cath 15 years ago - CP led to cath - [place] - no stents/angioplasty, ruled indigestion - does not follow w/ cardio Family History Daughter History of anesthesia reaction PONV Grandfather (Paternal) Family history of diabetes mellitus Mother Family history of diabetes mellitus Father Family history of diabetes mellitus Social History Smoking Status: Never smoker Tobacco Type: Smokeless Tobacco (Dip or Chew) Second Hand Exposure: No; Do You Dip or Chew Tobacco: Yes; Hx Alcohol Use: No Hx Substance Use: No Preferred Language: Montserratian Communication Ability: Effective Acidity Tester Required: No Beliefs That Will Affect Care: None marital status: Current Living Situation: Spouse current occupational status: retired current occupation: Retired Other Information That Helps Us Care for You: No Feels Safe at Home: Yes Safety Concerns: Feels Safe At This Time Assistive Devices: Glasses Review of Systems Review of Systems: All systems reviewed & are unremarkable except as noted in HPI & below Physical Exam Constitutional: well developed and well nourished; no acute distress Neck: normal visual inspection and trachea midline Respiratory: normal respiratory effort; no respiratory distress, no labored breathing and no cough Cardiovascular: Rate/Rhythm: regular rate and regular rhythm (intermittent mobitz I) Heart Sounds: normal S1 and normal S2; no murmur Vessels: dorsalis pedis pulses present; no JVD Extremities: no edema Skin: no rashes, warm and dry Psychiatric: A+Ox3, euthymic affect Orientation: alert and oriented x 3 Results & Data Vital Signs (Past 12 Hours) Vital Signs Temp Pulse Pulse Resp BP Pulse Ox O2 Del Method 01/15/25 07:26 36.4 C L 95 H 95 Room Air 01/15/25 07:25 63 01/15/25 06:59 153/83 H 01/15/25 06:44 69 138/76 01/15/25 06:28 68 171/93 H 96 Room Air 01/15/25 03:04 36.6 C 71 16 138/78 94 Room Air 01/14/25 23:09 36.5 C 70 16 165/90 H 97 Room Air 01/14/25 22:57 83 01/14/25 22:21 89 Laboratory Results Cardiac Enzymes 01/14/25 01/14/25 01/15/25 Range/Units 15:54 17:57 00:41 Troponin I High Sens 3.8 4.7 5.1 (0-20) pg/ml 01/15/25 Range/Units 06:08 Troponin I High Sens 5.6 (0-20) pg/ml Coagulation 01/14/25 Range/Units 15:54 PT 10.9 (9.0-12.0) Seconds APTT 27 (21-31) Seconds CBC 01/14/25 01/15/25 Range/Units 15:54 06:08 WBC 8.29 6.92 (4.8-10.8) K/ul RBC 4.60 L 4.34 L (4.70-6.10) M/uL Hgb 14.7 13.9 L (14.0-18.0) g/dl Hct 44.9 42.5 (42.0-52.0) % Plt Count 216 188 (130-400) K/uL Neut # (Auto) 5.51 (1.40-6.50) K/uL Lymph # (Auto) 1.66 (1.20-3.40) K/uL Daniels # (Auto) 0.63 H (0.11-0.59) K/uL Eos # (Auto) 0.43 (0.00-0.50) K/uL Baso # (Auto) 0.04 (0.00-0.20) K/uL Comprehensive Metabolic Panel 01/14/25 01/15/25 Range/Units 15:54 06:08 Sodium 140 142 (136-145) mmol/L Potassium 4.5 4.1 (3.5-5.1) mmol/L Chloride 109 H 112 H (98-107) mmol/L Carbon Dioxide 24 26 (21-32) mmol/L BUN 22 20 (6-23) mg/dl Creatinine 1.79 H 1.35 D (0.6-1.4) mg/dl Glucose 174 H 73 (70-99(Fasting)) mg/dl Calcium 9.3 8.7 (8.6-10.3) mg/dl Intake and Output 01/14/25 01/15/25 01/15/25 22:59 06:59 14:59 Intake Total 76.717 / 6832.173 5481.217 / 1186.934 102 / 102 Output Total 400 / 1500 1100 / 1500 Balance -323.283 / -313.066 10.217 / -313.066 102 / 102 Intake: IV 16.717 / 5401.311 4068.217 / 1126.934 102 / 102 Heparin 69449 Unit/500 ml D5w 16.717 / 126.934 110.217 / 126.934 102 / 102 25,000 units In 500 ml @ 850 UNITS/HR 17 mls/hr IV .Q24H JOYCE Rx#:[id number] Sodium Chloride 0.9% 1,000 ml @ 1000 / 1000 65 mls/hr IV .[id number] JOYCE Rx#: [id number] Oral 60 / 60 Output: Urine 400 / 1500 1100 / 1500 Other: Weight 80.4 kg 80.4 kg Weight Measurement Method Built in [facility] Built in [facility] Diagnostic Findings Echocardiogram today: LVEF 60-65% Mild concentric LVH LV wall motion is normal Mild aortic valve sclerosis without stenosis Mild TR No suggestion of pulmonary HTN Grade I diastolic dysfunction Chest xray 01/14/25--Negative Head CT 01/14/25 --Negative for acute bleed/process (1) Chest pain Chest pain type: unspecified Qualified Code(s): R07.9 - Chest pain, unspecified
[2025-01-15] MEDS: MAGNESIUM SULFATE / D5W 1 GM/100 ML BAG IV ONE (09:11)
--- NOTE | 2025-01-15 11:30 | Hospitalist Progress Note ---
Date of Service January 15, 2025 Assessment & Plan (1) Chest pain: Plan Unstable angina Multivessel coronary artery disease H/O 5 vessel CABG in 2021 -Troponin negative -ECHO: EF 60 to 65%. Mild concentric LVH. Left ventricular wall motion is normal. Aortic valve sclerosis mild, without significant stenosis. Mild tricuspid regurgitation. Grade 1 diastolic dysfunction. --CXR: no acute process Continue aspirin, atorvastatin, metoprolol, lisinopril, Imdur, Jardiance Continue IV heparin for now Appreciate cardiology input On recommendations from cardiology, as patient has complex coronary artery disease patient will be transferred to [facility] for further manage ment. Will continue IV heparin for now. May benefit from CT surgery evaluation. Syncope Fall Rule out arrhythmias Monitor on telemetry Hypomagnesemia Replete and monitor Acute kidney injury on CKD II Creatinine levels improved with IV fluids Monitor renal function Avoid nephrotoxic agents as able DM II HbA1c 8.4 Continue insulin per protocol Monitor blood glucose levels HTN Continue current medications Monitor blood pressure H/O DVT Xarelto on hold Continue IV heparin for now PMR Continue home medications Follows Dr. Lock DVT Px: IV heparin drip Code Status DNR/DNI Disposition [facility] Admission and Anticipated Discharge Date Admission Date: January 14, 2025 Subjective Patient is seen and examined at bedside States having ongoing chest pain which worsened this morning radiating to left shoulder Also reports associated dizziness and shortness of breath No other complaints Review of Systems Review of Systems: All systems reviewed & are unremarkable except as noted in Subjective Physical Exam Physical Exam: Physical Exam: Vitals signs as noted above General Appearance:Moderately built and nourished, no apparent distress Head: normocephalic, Atraumatic Eyes: normal inspection, EOMI Neck: supple, Trachea midline Respiratory/Chest: Normal breath sounds, CTA, No accessory muscle use Cardiovascular: S1, S2, No murmur Abdomen/GI:Soft, Non tender, Bowel sounds present Extremities/Musculoskeletal:normal inspection, no edema Neurologic/Psych:AAOX3, grossly no focal neurological deficits Skin: normal color, warm Results & Data Results & Data Vital Signs (Past 12 Hours) Vital Signs Temp Pulse Pulse Resp BP Pulse Ox O2 Del Method 01/15/25 11:23 36.4 C L 62 18 126/71 97 Room Air 01/15/25 09:06 67 18 151/83 H 01/15/25 08:10 79 16 191/101 H 01/15/25 07:26 36.4 C L 95 H 95 Room Air 01/15/25 07:25 63 01/15/25 06:59 153/83 H 01/15/25 06:44 69 138/76 01/15/25 06:28 68 171/93 H 96 Room Air 01/15/25 03:04 36.6 C 71 16 138/78 94 Room Air Laboratory Results Short CBC 01/14/25 01/15/25 Range/Units 15:54 06:08 WBC 8.29 6.92 (4.8-10.8) K/ul Hgb 14.7 13.9 L (14.0-18.0) g/dl Hct 44.9 42.5 (42.0-52.0) % Plt Count 216 188 (130-400) K/uL BMP 01/14/25 01/15/25 15:54 06:08 Sodium 140 142 Potassium 4.5 4.1 Chloride 109 H 112 H Carbon Dioxide 24 26 BUN 22 20 Creatinine 1.79 H 1.35 D Glucose 174 H 73 Calcium 9.3 8.7 (1) Chest pain Chest pain type: unspecified Qualified Code(s): R07.9 - Chest pain, unspecified
--- NOTE | 2025-01-15 12:18 | Discharge Summary ---
Date of Service January 15, 2025 Admission HPI Per Admitting Provider 71-year-old male with PMH of CAD, NSTEMI s/p CABG 08/19/2021, chronic stable angina, HTN, HLD, DM II, CKD III, MS, gout, multinodular goiter, polymyalgia rheumatica, DVT on chronic anticoagulation with Xarelto presented to ER with c/o chest pain. Patient reports he has been feeling weak since about 2 to 3 weeks, he had briefly passed out 3 times in about the same duration, each time associated with lightheadedness/chest pain. He denies hitting head. Today while he was resting, he started having left chest pressure radiating to left arm. And decided to come to the ED. Patient denies sore throat/cough/fever/belly pain/nausea/vomiting. Reports appetite has been on the lower side since about 2 to 3 weeks. Denies pain or burning with passing urine or any acute changes with bowel habits. Patient denies any febrile or flulike illness. Patient denies smoking/alcohol/drug use. Medications reviewed with the patient and his at bedside. He takes Ozempic weekly, Lantus, folic acid, Jardiance 30 mg daily, metformin 1 g daily, methotrexate injection weekly, atorvastatin 80 mg daily, Xarelto 20 mg daily, ezetimibe 10 mg daily, aspirin 81 mg daily, allopurinol 200 Mg daily, lisinopril 20 Mg daily, metoprolol tartrate 50 Mg twice daily. DNR/DNI as per my discussion with the patient. Plan of care discussed with the patient and his at bedside, they voiced understanding. 07/25/2022 echo: Moderate concentric LVH, mild hypokinesis inferior and septal apex, grade 1 diastolic dysfunction 07/28/2022 echo: EF: 65-70%, moderate concentric LVH, no regional wall motion abnormalities Admission Exam Per Admitting Provider GENERAL: Alert and oriented x3. NAD, on RA. HEENT: No pallor, no icterus. Pupils equal, round and reactive to light. Oral mucosa moist. NECK: No JVD, no neck masses. Mid sternotomy scar, old/healed. HEART: S1 and S2 heard. Regular rate and rhythm. No murmur, no gallop. RESPIRATORY SYSTEM: Normal AP diameter. No accessory muscle use. No wheezing, no crackles. ABDOMEN: Soft, bowel sounds present, nontender, no distention. CENTRAL NERVOUS SYSTEM: No facial droop. Speech is clear. Obeys simple commands. Moves extremities. EXTREMITIES: No edema, no erythema seen. Principal Diagnosis Unstable angina Syncope Multivessel coronary artery disease Hypomagnesemia Acute kidney injury Discharge Data Allergies Allergy/AdvReac Type Severity Reaction Status Date / Time morphine AdvReac Severe Vomiting Verified 01/14/25 17:30 rosuvastatin [From Crestor] AdvReac Intermediate Cramping Verified 01/14/25 17:30 of the Muscles Consultations 01/14/25 16:56 ED Decision to Admit Stat 01/14/25 17:32 Consult Cardiology Routine Procedures Performed Laboratory Results WBC 6.92 K/ul (4.8-10.8) 01/15/25 06:08 RBC 4.34 M/uL (4.70-6.10) L 01/15/25 06:08 Hgb 13.9 g/dl (14.0-18.0) L 01/15/25 06:08 Hct 42.5 % (42.0-52.0) 01/15/25 06:08 MCV 97.9 fL (80.0-100.0) 01/15/25 06:08 MCH 32.0 pg (25.0-34.0) 01/15/25 06:08 MCHC 32.7 g/dL (32.0-36.0) 01/15/25 06:08 RDW Std Deviation 55.6 fL (36.4-46.3) H 01/15/25 06:08 RDW Coeff of Leo 15.6 % (11.5-14.5) H 01/15/25 06:08 Plt Count 188 K/uL (130-400) 01/15/25 06:08 MPV 10.7 fL (9.4-12.4) 01/15/25 06:08 Immature Gran % (Auto) 0.2 % 01/14/25 15:54 Neut % (Auto) 66.5 % 01/14/25 15:54 Lymph % (Auto) 20.0 % 01/14/25 15:54 [place] % (Auto) 7.6 % 01/14/25 15:54 Eos % (Auto) 5.2 % 01/14/25 15:54 Baso % (Auto) 0.5 % 01/14/25 15:54 Neut # (Auto) 5.51 K/uL (1.40-6.50) 01/14/25 15:54 Lymph # (Auto) 1.66 K/uL (1.20-3.40) 01/14/25 15:54 [place] # (Auto) 0.63 K/uL (0.11-0.59) H 01/14/25 15:54 Eos # (Auto) 0.43 K/uL (0.00-0.50) 01/14/25 15:54 Baso # (Auto) 0.04 K/uL (0.00-0.20) 01/14/25 15:54 Immature Gran # (Auto) 0.02 K/uL (0.01-0.20) 01/14/25 15:54 PT 10.9 Seconds (9.0-12.0) 01/14/25 15:54 INR 1.0 (0.9-1.1) 01/14/25 15:54 APTT 27 Seconds (21-31) 01/14/25 15:54 PTT Ratio 1.0 01/14/25 15:54 Heparin Anti-Xa, Unfract 0.35 IU/ml (0.3-0.7) 01/15/25 06:08 Sodium 142 mmol/L (136-145) 01/15/25 06:08 Potassium 4.1 mmol/L (3.5-5.1) 01/15/25 06:08 Chloride 112 mmol/L (98-107) H 01/15/25 06:08 Carbon Dioxide 26 mmol/L (21-32) 01/15/25 06:08 Anion Gap 4 (3-11) 01/15/25 06:08 BUN 20 mg/dl (6-23) 01/15/25 06:08 Creatinine 1.35 mg/dl (0.6-1.4) D 01/15/25 06:08 Est Cr Clr Drug Dosing 46.2 ml/min 01/15/25 06:08 eGFR 54.75 01/15/25 06:08 BUN/Creatinine Ratio 14.8 (10-20) 01/15/25 06:08 Glucose 73 mg/dl (70-99(Fasting)) 01/15/25 06:08 POC Glucose 86 mg/dl (70-99) 01/15/25 10:59 Estimat Average Glucose 194 mg/dl 01/15/25 06:08 Hemoglobin A1c 8.4 % (4.5-5.6) H 01/15/25 06:08 Calcium 8.7 mg/dl (8.6-10.3) 01/15/25 06:08 Phosphorus 3.0 mg/dl (2.5-4.9) 01/15/25 06:08 Magnesium 1.5 mg/dl (1.7-2.4) L 01/15/25 06:08 Troponin I High Sens 5.6 pg/ml (0-20) 01/15/25 06:08 Lipase 31 U/L (11-82) 01/14/25 15:54 Impressions Chest X-Ray 01/14/25 15:55 Clinical History: Chest pain Technique: PA and lateral views of the chest were obtained Comparison is made to the prior examination dated 07/23/2024 Findings: There are no confluent pulmonary infiltrates. The heart size is within normal limits. No pleural effusion or pneumothorax is seen. There is no definite pulmonary nodule. No fracture is noted. Sternal wires are present. There is a suture anchor in the right humeral head Impression: No active disease Electronically signed by Jon Chow 01-14-2025 4:[address] 01/14/25 17:49 CT of the head without contrast Technique: Noncontrast axial images of the head. Coronal and sagittal reformatted images made available for review Comparison made to prior exam dated 09/08/2022 Findings: No acute intracranial hemorrhage. No acute transcortical infarct. No midline shift. Ventricles, sulci, cisterns within normal limits. Bone windows demonstrate no focal abnormality Impression Head CT negative for acute intracranial abnormality. Electronically signed by Vinicio Cr 01-14-2025 9:25 PM Ordered Studies 01/14/25 17:49 CT head/brain wo con Routine Hospital Course (1) Chest pain: Plan Unstable angina Multivessel coronary artery disease H/O 5 vessel CABG in 2021 -Troponin negative -ECHO: EF 60 to 65%. Mild concentric LVH. Left ventricular wall motion is normal. Aortic valve sclerosis mild, without significant stenosis. Mild tricuspid regurgitation. Grade 1 diastolic dysfunction. --CXR: no acute process Continue aspirin, atorvastatin, metoprolol, lisinopril, Imdur, Jardiance Continue IV heparin for now Appreciate cardiology input On recommendations from cardiology, as patient has complex coronary artery disease patient will be transferred to [facility] for further management. Will continue IV heparin for now. May benefit from CT surgery evaluation. Syncope Fall Rule out arrhythmias Monitor on telemetry Hypomagnesemia Replete and monitor Acute kidney injury on CKD II Creatinine levels improved with IV fluids Monitor renal function Avoid nephrotoxic agents as able DM II HbA1c 8.4 Continue insulin per protocol Monitor blood glucose levels HTN Continue current medications Monitor blood pressure H/O DVT Xarelto on hold Continue IV heparin for now PMR Continue home medications Follows Dr. Lock DVT Px: IV heparin drip Code Status DNR/DNI Disposition [facility] Total Time Total Time Spent Total Time Spent (In Minutes): 54 minutes Discharge Plan Discharge Items Patient Disposition: Transfer Acute Care Hospital Reason For Visit: CHEST PAIN, SYNCOPE Discharge Diagnosis: Unstable angina Syncope Multivessel coronary artery disease Hypomagnesemia Acute kidney injury Condition on Discharge: Good Activity: Per Instructions section Exercise/Sports: Wait until after follow-up appointment Non-emergency contact: Primary Care Provider and Side Splitter Call non-emergency contact if: you have any medication questions, your symptoms worsen, your pain is concerning for you and you have a fever Follow-up/Referrals: Nacho Chen MD [Primary Care Provider] - Diet: Carb Consistent or DM2 and Heart Healthy Addtl Attending Provider Instructions: -- Follow-up with Dr. Belle Soares at [facility] for further management Seek immediate medical attention if your symptoms reoccur or worsen Please review medication list provided on discharge for any medication changes as instructed. Please call if you have any questions or problems. You can reach a [facility] hospitalist on duty at [facility] 24 hours a day by calling [phone] Home Care: * Take your medications exactly as directed. Don't skip doses. * Remember that recovery after a heart attack takes time. Plan to rest for at lease 4-8 weeks while you recover. Then return to normal activity when your doctor says it's okay. * Ask your doctor about joining a heart rehabilitation program. * Tell your doctor if you are feeling depressed. Feelings of sadness are common after a heart attack, but it is important that you speak to someone if you are feeling overwhelmed by these feelings. * If you are having chest pain, call 911 for an ambulance. Do NOT drive yourself to the hospital. * Ask your family members to learn CPR. * Learn to take your own blood pressure and pulse. Keep a record of your results. Ask your doctor when you should seek emergency medical attention. He or she will tell you which blood pressure reading is dangerous. Lifestyle Changes: * Maintain a healthy weight. Get help to lose any extra pounds. * Cut back on salt. * Limit canned, dried, packaged, and fast foods. * Don't add salt to your food. * Season foods with herbs instead of salt when you cook. * Break the smoking habit. Enroll in a stop-smoking program to improve your chances of success. * Limit fatty foods. * Ask your doctor about having your lipid levels checked regularly. * Build up your activity according to your doctor's recommendation. * Ask your doctor when it's okay to resume sexual activity. * Tell your doctor about any erectile dysfunction (ED) medication you are taking. Some ED medications are not safe if you take certain heart medications. * Try to manage stress. Follow Up: It is important for you to keep your follow up appointments with your medical provider. 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: Current Inpatient Medications Acetaminophen (Acetaminophen 325 Mg Tab) 650 mg PO Q4H PRN PRN Reason: Pain or Fever Stop: 02/13/25 17:33 Al Hydrox/Mg Hydrox/Simethicone (Aluminum/Magnesium Susp 30 Ml Udc) 15 ml PO Q4H PRN PRN Reason: Dyspepsia Stop: 02/13/25 17:33 Allopurinol (Allopurinol 100 Mg Tab) 200 mg PO QAM [facility] Stop: 02/14/25 08:59 Last Admin: 01/15/25 08:12 Dose: 200 mg Amlodipine Besylate (Amlodipine Besylate 5 Mg Tab) 5 mg PO [facility] Stop: 02/14/25 20:59 Aspirin (Aspirin 81 Mg Chew) 81 mg PO QAM [facility] Stop: 02/14/25 08:59 Last Admin: 01/15/25 08:11 Dose: 81 mg Atorvastatin Calcium (Atorvastatin 40 Mg Tab) 80 mg PO QAM [facility] Stop: 02/14/25 08:59 Last Admin: 01/15/25 08:12 Dose: 80 mg Dextrose (Dextrose 50% 50 Ml Syringe) 25 - 50 ml IV UD PRN; Protocol PRN Reason: Hypoglycemia Protocol Stop: 02/13/25 17:33 Last Admin: 01/15/25 06:32 Dose: 25 ml Ezetimibe (Ezetimibe 10 Mg Tab) 10 mg PO QAM [facility] Stop: 02/14/25 08:59 Last Admin: 01/15/25 08:11 Dose: 10 mg Glucagon (Glucagon For Inj 1 Mg Vial) 1 mg SQ UD PRN; Protocol PRN Reason: Hypoglycemia Protocol Stop: 02/13/25 17:33 Glucose (Glucose 40% Gel 15 Gm Tube) 15 - 30 gm PO UD PRN; Protocol PRN Reason: Hypoglycemia Protocol Stop: 02/13/25 17:33 Glucose (Glucose 10 Tab/Tube) 4 - 8 tab PO UD PRN; Protocol PRN Reason: Hypoglycemia Protocol Stop: 02/13/25 17:33 Hydromorphone HCl (Hydromorphone Inj 0.5 Mg/0.5 Ml Syr) 0.25 mg IV Q4H PRN PRN Reason: Pain Stop: 01/29/25 06:36 Hydroxyzine HCl (Hydroxyzine Hcl 10 Mg Tab) 10 mg PO QID PRN PRN Reason: Anxiety Stop: 02/14/25 06:37 Heparin Sodium/Dextrose (Heparin 16989 Unit/500 Ml D5w) 25,000 units in 500 mls @ 17 mls/hr IV .Q24H JOYCE; Protocol Stop: 02/13/25 17:59 Last Titration: 01/15/25 07:28 Dose: 850 units/hr, 17 mls/hr Insulin Aspart (Insulin Aspart Per Unit Charge) 0 units SC Q6 [facility] Stop: 02/14/25 00:00 Last Admin: 01/15/25 06:13 Dose: Not Given Isosorbide Mononitrate (Isosorbide [place] Extended Rel 60 Mg Tabcr) [facility] [place] Stop: 02/14/25 08:59 Last Admin: 01/15/25 08:11 Dose: 60 mg Lisinopril (Lisinopril 20 Mg Tab) 20 mg PO QAM [facility] Stop: 02/14/25 08:59 Last Admin: 01/15/25 08:11 Dose: 20 mg Magnesium Chloride (Magnesium Chloride W/Calcium 64mg Delayed Rel Tab) 64 mg PO BID JOYCE Stop: 02/14/25 20:59 Magnesium Hydroxide (Magnesium Hydroxide Susp 30 Ml Udc) 30 ml PO Q12H PRN PRN Reason: Constipation Stop: 02/13/25 17:33 Metoprolol Tartrate (Metoprolol Tartrate 50 Mg Tab) 50 mg PO [facility] JOYCE Stop: 02/13/25 20:59 Last Admin: 01/15/25 08:11 Dose: 50 mg Miscellaneous (Carbohydrates For Hypoglycemia ) 15 - 30 gm PO UD PRN PRN Reason: Hypoglycemia Protocol Stop: 02/13/25 17:33 Miscellaneous Information (Pharmacy Glycemic Mgmt Consult) 1 each N/A UD PRN PRN Reason: Consult Stop: 02/13/25 17:33 Nitroglycerin (Nitroglycerin Sl 0.4 Mg/Tab Tab) 0.4 mg SL Q5M PRN PRN Reason: Chest Pain Stop: 02/13/25 16:01 Last Admin: 01/15/25 06:39 Dose: 0.4 mg Ondansetron HCl (Ondansetron Inj 2 Mg/Ml 2 Ml Vial) 4 mg IV Q6H PRN PRN Reason: Nausea Stop: 02/13/25 17:33 Oxycodone HCl (Oxycodone Hcl Ir 5 Mg Tab (Immediate Release)) 5 mg PO Q4H PRN PRN Reason: Pain Stop: 01/29/25 06:35 Pending Studies at Discharge: No Stand-Alone Forms: My [facility] Skilled Items Patient informed of condition?: Yes DNR: Yes Discharge Level of Care: Other Communicable Disease: No Discharge Prognosis: Other Lines: Peripheral IV Urinary Catheter: No Medications and DC Order Prescriptions: Continued atorvastatin 80 mg tablet 80 mg PO QAM allopurinol 100 mg tablet 200 mg PO QAM metoprolol tartrate 50 mg tablet 50 mg PO [facility] aspirin 81 mg Tablet,Chewable 81 mg PO QAM metformin 500 mg tablet extended release 24 hr 1,000 mg PO QAM ezetimibe 10 mg tablet 10 mg PO QAM insulin glargine [Basaglar KwikPen U-100 Insulin] 100 unit/mL (3 mL) Insulin Pen 38 unit SUBCUT [facility] Rx Instructions: AM & BEFORE HS Xarelto 20 mg tablet 20 mg PO DAILY Jardiance 25 mg tablet 25 mg PO QAM isosorbide mononitrate 60 mg tablet extended release 24 hr 60 mg PO QAM lisinopril 20 mg tablet 20 mg PO QAM folic acid 1 mg tablet 1 mg PO QAM Ozempic 1 mg/dose (4 mg/3 mL) pen injector 1 mg SUBCUT [facility]K Rx Instructions: methotrexate sodium 25 mg/mL solution 20 mg subcut WK Rx Instructions: Discharge Orders: Discharge Order (Routine); Ordered 01/15/25 Ordered By: Oscar Tilley/Other Patient Handouts: Managing Type 2 Diabetes Admission Data Admit Date/Time: 01/14/25 17:34 Attending Provider: Oscar Brooks Admit Provider: Susan Leggett Primary Care Provider: Nacho Chen Other Providers: Susan Leggett; Heidi Villanueva; Farhan George; Waldemar Moraes; Isra Sierra; Diaz Day; Kelvin Power; Emma Floyd; Vivien Morales; Eva Nieto; Christine Lopez; Heidi Marshall; Medardo Hackett; Nestor Perdomo; Oma Talavera; Renetta Espana; Cielo Martines; Marco A Rowland; Mitchell Pierson; Stacey Kelly; Tracy Blum; Moises Jain
--- NOTE | 2025-01-15 13:48 | Electrocardiogram Report ---
Test Reason : Blood Pressure : */* mmHG Vent. Rate : 69 BPM Atrial Rate : 69 BPM P-R Int : 330 ms QRS Dur : 90 ms QT Int : 394 ms P-R-T Axes : 54 34 56 degrees QTcB Int : 422 ms Sinus rhythm with 1st degree A-V block Septal infarct (cited on or before 23-Jul-2024) Abnormal ECG When compared with ECG of 14-Jan-2025 15:48, (unconfirmed) No significant change was found Confirmed by Akshat Villaseñor ([id number]) on 01/15/2025 1:47:35 PM Referred By: REFERRED SELF Confirmed By: Akshat Villaseñor
--- NOTE | 2025-01-15 14:30 | Pharmacy Report ---
Pharmacy Glycemic Short Note 2 - Date of Service January 15, 2025 - Glycemic Short BSG Results (Last 24 hours): 01/14/25 01/14/25 01/15/25 15:54 20:00 00:04 Glucose 174 H POC Glucose 117 H 96 01/15/25 01/15/25 01/15/25 06:08 06:12 06:44 Glucose 73 POC Glucose 62 L* 114 H 01/15/25 10:59 Glucose POC Glucose 86 OUTPATIENT ANTIDIABETIC REGIMEN: * Lantus 38 units SQ BID * Jardiance 25mg po daily * Ozempic 1mg SQ weekly HbA1c: 8.45 on 01/15/25 ASSESSMENT: * Wagner is a 74 year old male admitted yesterday with chest pain. Pharmacy has been consulted for glycemic management while he is admitted. * BSG was 174mg/dL on admit yesterday and dropped to 117mg/dL at bedtime. ~ half of his home dose of Lantus was ordered last evening and a weight based bolus insulin regimen with a stress of 2 was started. * Fasting BSG was 62mg/dL this morning. 25ml of d50% was given at that time and the Lantus was discontinued for now. The parameters of the bolus insulin regimen were also loosened by the provider. * Patient is currently NPO and is on a heparin drip (in D5W). PLAN FOR INPATIENT GLYCEMIC CONTROL: * Hold outpatient diabetes medications * Basal insulin * Lantus 20 units SQ x 1 last evening, then hold for now * Bolus insulin * NovoLog per scale ACHS or Q6hrs while NPO * Goal Range: Low 110 mg/dL - High 140 mg/dL * Correction Factor: 40 mg/dL/unit * Nutritional / Prandial insulin per carb ratio of 1 unit per 20 grams CHO consumed
[2025-01-15] MEDS: oxyCODONE HCL IR 5 MG TAB (IMMEDIATE RELEASE) PO PRN (14:45)
--- NOTE | 2025-01-15 15:27 | Electrocardiogram Report ---
Test Reason : Blood Pressure : */* mmHG Vent. Rate : 81 BPM Atrial Rate : 81 BPM P-R Int : 260 ms QRS Dur : 82 ms QT Int : 360 ms P-R-T Axes : 45 48 63 degrees QTcB Int : 418 ms Sinus rhythm with 1st degree A-V block Septal infarct (cited on or before 23-Jul-2024) Abnormal ECG When compared with ECG of 23-Jul-2024 15:11, Questionable change in initial forces of Anteroseptal leads Confirmed by Akshat Villaseñor ([id number]) on 01/15/2025 3:27:17 PM Referred By: REFERRED SELF Confirmed By: Akshat Villaseñor
[2025-01-15] MEDS ORDERED: Nursing to Pharmacy Communication SCH (17:30)
[2025-01-15 19:22] VITALS: TEMP 97.5
[2025-01-15] MEDS: MAGNESIUM CHLORIDE W/CALCIUM 64MG DELAYED REL TAB PO SCH (20:51)
[2025-01-15] MEDS: hydrALAZINE HCL 20 MG/ML VIAL IV STA (23:08)
[2025-01-15] MEDS: HYDROmorphone INJ 0.5 MG/0.5 ML SYR IV PRN (23:13)
[2025-01-15 23:22] VITALS: BP 150/83; RESP 16; O2SAT 96
[2025-01-16 00:02] VITALS: PULSE 76
--- NOTE | 2025-01-17 06:59 | Electrocardiogram Report ---
Test Reason : Blood Pressure : */* mmHG Vent. Rate : 74 BPM Atrial Rate : 74 BPM P-R Int : 294 ms QRS Dur : 86 ms QT Int : 380 ms P-R-T Axes : 22 21 60 degrees QTcB Int : 421 ms Sinus rhythm with 1st degree A-V block Abnormal ECG When compared with ECG of 15-Jan-2025 06:21, No significant change was found Confirmed by Moises Tristan ([id number]) on 01/17/2025 6:59:29 AM Referred By: REFERRED SELF Confirmed By: Moises Tristan
== END 2025-01-16 00:30 | disposition short-term general hospital (02) | DRG 303 ==
LOC: ED 15:38 → 2S 17:34 → SUATTDRO 17:34 → 2S 18:57